=== PATIENT | female | born 1975 | race Caucasian/White ===

== ENCOUNTER 2021-08-19 09:44 | Emergency (ER) | payer OTHER, SELFPAY ==
[2021-08-19 10:12] VITALS: BP 116/64; PULSE 84; RESP 16; TEMP 36.6; O2SAT 99; BMI 28.3
--- NOTE | 2021-08-19 10:57 | ED.BACK ---
HPI - Back Pain/Injury General Chief Complaint: Back Pain/Injury Stated Complaint: lower back down to r side leg Time Seen by Provider: 08/19/21 10:53 Source: patient and family Mode of arrival: ambulatory Limitations: no limitations History of Present Illness MD elicited complaint: back pain Pertinent past history: prior back pain (She reports she goes to [facility] and gets injections every 6 months the left side of the back usually not to the right although feels similar) Onset (ago): day(s) (Past 2 days worse today) Timing: constant and progressively worsening Severity: severe Similar Symptoms Previously: Yes Quality: sharp, aching and spasming Location: lumbar spine Radiation: right upper leg (Above the knee) Exacerbating factors: movement, sitting upright, walking and lifting Relieving factors: none Context: unknown Associated symptoms: numbness (Numbness/tingling to the right lower extremity intermittent) Treatments prior to arrival: other (She has tried [id number] medication no symptomatic relief) Work related injury: No Related Data Previous Rx's Medication Instructions Recorded diazepam 10 mg tablet (Valium) 10 mg PO TID PRN #14 tab 08/19/21 ibuprofen 800 mg tablet 800 mg PO Q8H PRN #14 tab 08/19/21 oxycodone 5 mg tablet 5 mg PO Q6H PRN #14 tab 08/19/21 prednisone 20 mg tablet 40 mg PO DAILY 5 Days #10 tab 08/19/21 Allergies Allergy/AdvReac Type Severity Reaction Status Date / Time No Known Allergies Allergy Unverified 05/21/20 15:25 [No Known Allergies*] Review of Systems Review of Systems: Constitutional : No trauma, No Weight loss, No Fever, No Chills, ENT/Mouth : No Hearing loss, No Ear Pain, No Nasal Congestion, No Sinus Pain, No Hoarseness, No sore throat, No Rhinorrhea, No Swallowing Difficulty Cardiovascular : No Chest Pain, No SOB Respiratory : No Cough, No Dyspnea Gastrointestinal : No Nausea, No Vomiting, No Diarrhea, No abdominal Pain, No Hematochezia, No Melena Genitourinary : No Dysuria, No Urinary Frequency, No Hematuria, No Urinary or Bowel Incontinence/retention Musculoskeletal : + Back pain, No neck pain, No joint stiffness, No joint swelling Skin : No Skin Lesions, No rash or signs of infection Neuro : No Weakness, + radiation, + Numbness, No Paresthesias, No headache, no loss of bowel or bladder incontinence, no saddle anesthesia, Focal weakness, No radiation Denies history of IV drug usage. Yes all other systems are reviewed and are negative [facility] Past Medical History Attestation statement: The following information was validated with the patient. Medical History Depression Social History Social History Advance Directives: No Advance Directives Information Provided: No Patient : No Physical Exam Vital Signs: Vital Signs: Last Vital Signs Temp 97.8 F 08/19/21 10:12 Pulse 84 08/19/21 10:12 Resp 16 08/19/21 10:12 BP 116/64 08/19/21 10:12 Pulse Ox 99 08/19/21 10:12 BMI result Body Mass Index 28.3 vital signs have been reviewed as normal and appeared to be correct. Blood pressure normal. Heart rate normal. Respiration rate normal. Temperature normal. Oxygen saturation normal. Appearance: Alert. Oriented X3. No acute distress. Head: Normal external exam. Normocephalic. Atraumatic. No Avelar signs noted. No raccoon eyes noted Eyes: PERRLA. EOMI. Conjunctiva and sclera normal. Eyelids normal. ENT: EAC normal. TM's Normal. Pharynx normal. Uvula midline. Moist mucous membranes. No trismus noted. No drooling noted. No muffled voice noted. Neck: Normal inspection. Neck supple. FROM. No adenopathy. Thyroid Normal. No meningeal signs. No neck mass noted. CVS: Normal heart rate and rhythm. Heart sound normal. No murmurs noted. Pulses normal throughout. Respiratory: No respiratory distress. Painless inspiration. Breath sounds normal. No wheezes/rales/rhonchi noted. Chest nontender. No accessory muscle usage noted or decreased air movement noted. Abdomen: Soft and nontender. Bowel sounds normal in all 4 quadrants. No distention noted. No organomegaly noted. No visible injury noted. Back: No CVA tenderness. Full range of motion noted. No obvious deformities, or edema. Mild para-spinal muscular tenderness from lumbar region to coccyx. Full ROM in back and lower extremities. 5/5 strength hip extension/flexion, abduction, adduction. Mild Lumbar pain with hip flexion against resistance. Straight leg raise test negative on right; Straight leg raise test negative on left; Reflexes normal ankle and knee bilaterally; EHL motor strength normal bilaterally. No rashes/lesion/induration/fluctuance or signs infection noted. Skin: Skin warm and dry. Normal skin color. Normal skin turgor. No rashes/lesions/lacerations noted. Extremities: No lower extremity edema. Extremities exhibit normal range of motion. Extremities nontender. Neuro: Oriented X 3. No motor deficit. No sensory deficit. Reflexes normal. Patient has a normal steady gait. Course Course Course Narrative: Pt c likely muscular pain, but could be herniated disc. Neuro exam shows no deficits. Not c/w AAA/epidural abscess/dissection.No high risk Hx (Incont, fever, immunosupp, recent surgery/LP, coag, signif trauma, wt loss, puls mass, hx/o Ca, TB, or IVDU) to warrant MRI/CT today. Not c/w Pyelo/UTI/kidney stone/spinal fx. Not cauda equina syndrome. Imaging not currently indicated. DC c meds and f/u. Discharge Plan Discharge Clinical Impression: Lumbar radiculopathy Patient Disposition: Home, Self-Care Instructions: Lumbar Radiculopathy (ED), Lower Back Exercises (ED) Prescriptions: New ibuprofen 800 mg tablet 800 mg PO Q8H PRN (Reason: pain) Qty: 14 RF: 0 prednisone 20 mg tablet 40 mg PO DAILY 5 Days Qty: 10 RF: 0 diazepam [Valium] 10 mg tablet 10 mg PO TID PRN (Reason: muscle spasm) Qty: 14 RF: 0 oxycodone 5 mg tablet 5 mg PO Q6H PRN (Reason: pain) Qty: 14 RF: 0 Referrals: Physician,Unknown J [Primary Care Provider] - 2 days (your pcp) Stand Alone Forms: Work/School Release Print Language: Cymro
[2021-08-19] MEDS: diazePAM 5 MG TABLET PO (11:11)
[2021-08-19] MEDS: oxyCODONE HCl Immed Release 5 MG TABLET PO (11:12)
[2021-08-19] MEDS: Ibuprofen 800 MG TABLET PO (11:12)
== END 2021-08-19 11:18 | disposition home or self-care (01) ==
PROVIDERS: Emergency Provider Emergency Medicine
DX: M54.16 Radiculopathy, lumbar region (principal)
CPT/HCPCS: 99283; 99284

== ENCOUNTER 2021-09-22 11:00 | Emergency (ER) | payer OTHER, SELFPAY ==
--- NOTE | ~2021-09-22 | XR_ITS ---
EXAMINATION: XR CHEST CLINICAL INFORMATION: Chest wall pain after cough COMPARISON: None TECHNIQUE: 2 views of the chest were obtained. FINDINGS: No significant abnormality is noted involving the heart, lungs, mediastinum, bony thorax or soft tissues. XR/XR chest 2V IMPRESSION: Unremarkable chest examination.
[2021-09-22 12:37] VITALS: BP 148/93; PULSE 88; RESP 19; TEMP 35.5; O2SAT 99; BMI 29.2
[2021-09-22 13:12] LABS: COVID-19 Test Negative (Negative)
--- NOTE | 2021-09-22 13:52 | ED.GENADULT ---
HPI - General Adult General Chief complaint: General Medical Stated complaint: Chest pain when breathing Time Seen by Provider: 09/22/21 13:28 Source: patient Mode of arrival: ambulatory Limitations: no limitations History of Present Illness HPI narrative: This is a 46-year-old female that comes in today with multiple complaints, she reports cough, congestion, malaise and chest pain with deep inspiration x1 week. She also reports right anterior chest wall pain status post falling and hitting her chest on the floor while wrestling with her significant other X2 days. Patient tells me pain with inspiration is severe. And 10/10 sharp pain. She also reports slight shortness of breath on exertion. She denies chest pain, nausea, vomiting, fevers, chills, calf pain, weakness, headache, dizziness, vision changes. Not on blood thinners Onset (ago): week(s) (1) Location: chest Radiation: non-radiation Severity: severe Severity scale (1-10): 10 Quality: stabbing Pain Consistency: constant Relieving factors: none Exacerbating factors: other (deep breathing) Associated symptoms: cough, malaise and shortness of breath (on exertion) Treatments prior to arrival: NSAID Related Data Previous Rx's Medication Instructions Recorded diazepam 10 mg tablet (Valium) 10 mg PO TID PRN #14 tab 08/19/21 ibuprofen 800 mg tablet 800 mg PO Q8H PRN #14 tab 08/19/21 oxycodone 5 mg tablet 5 mg PO Q6H PRN #14 tab 08/19/21 prednisone 20 mg tablet 40 mg PO DAILY 5 Days #10 tab 08/19/21 cyclobenzaprine 10 mg tablet 10 mg PO BEDTIME PRN #7 tab 09/22/21 naproxen 500 mg tablet 500 mg PO BID PRN #14 tab 09/22/21 Allergies Allergy/AdvReac Type Severity Reaction Status Date / Time No Known Allergies Allergy Unverified 05/21/20 15:25 [No Known Allergies*] Review of Systems Review of Systems: Constitutional : No Weight loss, No Fever, No Chills, + Fatigue, No+ Malaise ENT/Mouth : No sore throat, + Rhinorrhea. +congestion Eyes: No Eye Pain, No Swelling, No Redness Cardiovascular : + Chest Pain, + SOB, + Dyspnea on Exertion, No Orthopnea, No Edema, No Palpitations, + anterior chest wall pain Respiratory : No Cough, No Sputum, No Wheezing Gastrointestinal : No Nausea, No Vomiting, No Diarrhea, No Constipation, No abdominal Pain, No Hematochezia, No Melena Genitourinary : No Dysuria, No Urinary Frequency, No Hematuria, Musculoskeletal : No joint pain, No Myalgias, No Joint Swelling Skin : No Skin Lesions, No rash Neuro : No Weakness, No Numbness, No Dizziness, No Headache All other systems reviewed and are negative Yes all other systems are reviewed and are negative [facility] Past Medical History Attestation statement: The following information was validated with the patient. Source: old records reviewed and nursing notes reviewed Medical History Depression Physical Exam Vital Signs: Vital Signs: Last Vital Signs Temp 96 F L 09/22/21 12:37 Pulse 88 09/22/21 12:37 Resp 19 09/22/21 12:37 BP 148/93 H 09/22/21 12:37 Pulse Ox 99 09/22/21 12:37 BMI result Body Mass Index 29.2 VSS Appearance: Alert.? Oriented X3.? No acute distress.? Head: Normocephalic, atraumatic, no step-offs or deformities Eyes: Pupils equal, round and reactive to light.? ENT: Pharynx normal.? Neck: Normal inspection.? Neck supple.? CVS: Normal heart rate and rhythm.? Pulses normal.?+pain with palpation to anterior chest wall on the right side. No overlying skin changes. Respiratory: No respiratory distress.? Breath sounds normal.? Abdomen: Soft and nontender.? Skin: Skin warm and dry.? Normal skin color.? Normal skin turgor.? Extremities: No lower extremity edema.? No calf ttp. 5/5 strength to bilateral upper and lower extremities Back: No midline tenderness, no C-spine tenderness, full range of motion, no CVA tenderness bilaterally Neuro: Oriented X 3.? No motor deficit.? No sensory deficit. Course Reevaluation(s) Reevaluation #1: Chest x-ray negative. COVID negative. On PE there is pain to palpation of right anterior chest wall. No overlying skin changes. I have ordered basic lab work an EKG, a troponin and a D-dimer. 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 She tells me that she does not have time for lab work, or other imaging. I explained to the patient that I am unable to rule out acute coronary syndrome and pulmonary embolism without lab work and imaging. Patient tells me that she does not care and she needs to leave to bring this client back home. I advised her that leaving is leaving against medical advice. I will send medication to her pharmacy to treat her anterior chest wall contusion however I am unable to rule out pulmonary embolism an ACS at this time. Patient understands the consequences of leaving such as , cardiac arrest, acute respiratory distress, I have educated patient on these risks and she agrees to take them. I do not feel comfortable with this patient leaving however, patient is leaving against medical advice. Time: 14:08 Reevaluation #2: I went to go speak to patient and hand her paperwork she left without paperwork. Everything I wrote on the paperwork I told her in person. Time: 14:31 Medical Decision Making MDM Narrative Medical decision making narrative: [id number] 46-year-old female presenting with upper respiratory symptoms times a week and pleuritic chest pain times 2 days. He does report a recent fall while she was wrestling her . She is not on blood thinners. Physical examination significant for pain with palpation of right anterior chest wall, no overlying skin changes. No calf tenderness to palpation, negative Shiloh sign. My plan is to obtain basic labs, D-dimer, troponin an EKG to rule out pulmonary embolism, ACS. I will also order COVID test. And chest x-ray to rule out rib fractures. Lab Data Labs: Lab Results 09/22/21 Range/Units 12:51 COVID-19 ([facility]ICIA) Negative (Negative) COVID-19 Clin Com See Note Imaging Data Chest x-ray: Attestation: I personally reviewed and interpreted this imaging study as follows: Radiologist's impression: FINDINGS: No significant abnormality is noted involving the heart, lungs, mediastinum, bony thorax or soft tissues. XR/XR chest 2V IMPRESSION: Unremarkable chest examination. Critical Care Time Critical Care Time Critical Care Time: No Discharge Plan Discharge Clinical Impression: Upper respiratory infection, Anterior chest wall pain, Chest pain, Shortness of breath, Left against medical advice Patient Disposition: Left Against Medical Advice Instructions: Chest Pain (ED), Viral Syndrome (ED), Against Medical Advice (ED), Chest Wall Pain (ED) Additional Instructions: Take your medications as prescribed. If you were prescribed antibiotics today, it is important that you take your medication to their entirety, do not skip any doses, do not finish them early. Follow-up with your primary care provider this week. Return to the emergency department with new or worsening symptoms. In case of emergency call 911 You decided to leave today against medical advice, I advised you to get laboratory studies, and imaging done to rule out things such as pulmonary embolism/ blood clot, acute coronary syndrome/ heart attacks or problems with your heart. 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 I have sent medication to your pharmacy for year right anterior chest wall pain secondary to her fall. I sent muscle relaxers, these can make you sleepy please do not take these while driving or operating any machinery. I have made you aware that leaving against medical advice and missing 1 of these diagnosis can potentially be life-threatening and can cause . You agreed to leave and not have these studies done. Feel free to return at any time with new or worsening symptoms. Prescriptions: New cyclobenzaprine 10 mg tablet 10 mg PO BEDTIME PRN (Reason: muscle spasm) Qty: 7 RF: 0 naproxen 500 mg tablet 500 mg PO BID PRN (Reason: pain) Qty: 14 RF: 0 No Action ibuprofen 800 mg tablet 800 mg PO Q8H PRN (Reason: pain) Qty: 14 RF: 0 prednisone 20 mg tablet 40 mg PO DAILY 5 Days Qty: 10 RF: 0 diazepam [Valium] 10 mg tablet 10 mg PO TID PRN (Reason: muscle spasm) Qty: 14 RF: 0 oxycodone 5 mg tablet 5 mg PO Q6H PRN (Reason: pain) Qty: 14 RF: 0 Referrals: Physician,Unknown J [Primary Care Provider] - 2 days Stand Alone Forms: Against Medical Advice Interventions: ED Discharge Assessment Last Done: 09/22/21 14:45 Discharge Date/Time: 09/22/21 14:46
== END 2021-09-22 14:46 | disposition left against medical advice (07) ==
PROVIDERS: Emergency Provider Emergency Medicine
DX: J06.9 Acute upper respiratory infection, unspecified (principal); R07.81 Pleurodynia; R05.9 Cough, unspecified; M79.10 Myalgia, unspecified site; R06.02 Shortness of breath; Z20.822 Contact with and (suspected) exposure to COVID-19; Z79.899 Other long term (current) drug therapy
CPT/HCPCS: 71046; 87635; 99283

== ENCOUNTER 2021-09-22 15:53 | Emergency (ER) | payer OTHER, SELFPAY | END 2021-09-22 18:59 | disposition left against medical advice (07) | PROVIDERS: Emergency Provider Emergency Medicine | DX: R07.89 Other chest pain (principal) ==

== ENCOUNTER 2021-12-09 11:37 | Outpatient (REF) | payer OTHER, SELFPAY ==
[2021-12-09 12:26] LABS: COVID-19 Test Negative (Negative)
== END 2021-12-09 11:38 | disposition home or self-care (01) ==
LOC: HO.LAB 11:37
PROVIDERS: Visit Provider Internal Medicine
DX: Z20.822 Contact with and (suspected) exposure to COVID-19 (principal)
CPT/HCPCS: 87635; C9803

== ENCOUNTER 2022-06-24 15:20 | Emergency (ER) | payer OTHER, SELFPAY ==
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
--- NOTE | 2022-06-24 15:52 | PC.NURSE ---
Called x 3 to triage. No answer.
[2022-06-24 16:04] VITALS: BP 136/85; PULSE 100; RESP 18; TEMP 37.2; O2SAT 100; BMI 26.1
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
[2022-06-24 21:53] LABS: MANUAL DIFF FLAG NO
[2022-06-24 21:56] LABS: Basophils Absolute Auto 0.1 X10*3/uL (0.0-0.2); Basophils Percent Auto 0.7 % (0-2); Eosinophils Absolute Auto 0.4 X10*3/uL (0.0-0.4); Eosinophils Percent Auto 3.4 % (0-4); Hematocrit 39.9 % (37.0-47.0); Hemoglobin 13.3 g/dl (12.0-16.0); Imm Gran Abs Auto 0.02 X10*3/uL (0.00-0.03); Imm Gran Pct Auto 0.2 % (0.0-0.4); Lymphocytes Absolute Auto 4.5 X10*3/uL (1.2-4.9); Lymphocytes Percent Auto 41.6 % (20-40); Mean Corpuscular HGB Conc 33.3 g/dl (31.0-35.0); Mean Corpuscular Hemoglobin 29.5 pg (27.0-33.0); Mean Corpuscular Volume 88.5 fL (80.0-98.0); Mean Platelet Volume 9.8 fL (9.4-12.3); Monocytes Absolute Auto 0.4 X10*3/uL (0.1-1.2); Monocytes Percent Auto 3.7 % (2-11); Neutrophils Absolute Auto 5.4 x10*3/uL (2.0-8.3); Neutrophils Percent Auto 50.4 % (45-73); Platelet Count 389 X10*3/uL (160-400); Red Blood Count 4.51 X10*6/uL (4.20-5.50); Red Cell Distribution Width 14.5 % (11.0-16.0); White Blood Count 10.8 X10*3/uL (4.8-10.8)
[2022-06-24 21:57] LABS: Appearance Urine Clear; Color Urine Yellow; Glucose Urine UA Negative (Negative); Leukocyte Esterase Urine Negative (Negative); Nitrite Urine Negative (Negative); PH 5.5 (5.0-9.0); Specific Gravity - Urine >= 1.030 (1.005-1.025); Urine Blood Negative (Negative); Urine Ketones Negative (Negative); Urine Protein Negative (Neg-Trace)
[2022-06-24 22:00] LABS: Urine Pregnancy NEGATIVE (NEGATIVE)
[2022-06-24 22:01] LABS: UPreg QC Valid YES
[2022-06-24] MEDS: Acetaminophen 325 MG TABLET 975 MG PO (22:23)
[2022-06-24] MEDS: Ketorolac Tromethamine 15 MG/ML VIAL IM (22:24)
[2022-06-24] MEDS: Lidocaine 4 % Patch ADH..PATCH 1 PATCH TRANSDERMA (22:25)
[2022-06-24 22:26] LABS: Alanine Aminotransferase 27 U/L (0-31); Albumin Level 4.4 g/dL (3.5-5.0); Alkaline Phosphatase 104 U/L (39-117); Anion Gap 17 (12-20); Aspartate Amino Transferase 21 U/L (5-31); Bilirubin Total 0.3 mg/dL (0.0-1.0); Blood Urea Nitrogen 19 mg/dL (9-16); Calcium 9.9 mg/dL (8.4-10.2); Carbon Dioxide 23 mmol/L (22-29); Chloride 104 mmol/L (96-108); Creatinine Clr Calc Pharmacy 87.2; Estimated Glomerular Filt Rate > 60; Glucose Random 165 mg/dL (60-115); Potassium 4.2 mmol/L (3.3-5.1); Sodium 140 mmol/L (135-145); Total Protein 7.3 g/dL (6.5-8.0)
[2022-06-24] MEDS: iohexoL 350 MG/ML 100 ML INFUS..BTL IV (22:39)
--- NOTE | 2022-06-25 00:47 | PC.NURSE ---
pt ambulatory with steady gait at time of discharge. no apparent distress
== END 2022-06-25 00:48 | disposition home or self-care (01) ==
PROVIDERS: Emergency Provider Student in an Organized Health Care Education/Training Program
DX: Z04.1 Encounter for examination and observation following transport accident (principal); M79.18 Myalgia, other site; M54.50 Low back pain, unspecified; M54.2 Cervicalgia
CPT/HCPCS: 36415; 70450; 71260; 72125; 73110; 74177; 80053; 81003; 81025; 85025; 96372; 99283; 99284; J1885; Q9967

== ENCOUNTER 2023-05-25 19:41 | Inpatient (IN) | payer OTHER, SELFPAY ==
--- NOTE | ~2023-05-25 | CT_ITS ---
EXAMINATION: CT ABDOMEN AND PELVIS WITH CONTRAST CLINICAL INFORMATION: Abdominal pain, nausea/vomiting, Crohn's COMPARISON: 06/24/2022 TECHNIQUE: Multidetector volumetric images were obtained from the superior aspect of the liver through the pubic symphysis following administration 85 mL of Omnipaque 350 intravenous contrast. Sagittal and coronal reformatted images were obtained on the technologist's workstation. Oral contrast: No This CT examination was performed using dose optimization techniques as appropriate, variously including the following: *Automated exposure control *Adjustment of mA and/or kV according to patient size (this includes techniques or standardized protocols for targeted exams where dose is matched to indication/reason for exam; i.e. extremities or head) *Use of iterative reconstruction technique DLP: 523 mGy-cm FINDINGS: LUNG BASES: Minimal subsegmental atelectasis. LIVER, GALLBLADDER, AND BILIARY TREE: The liver is normal in size, shape, and attenuation. No focal hepatic lesion or biliary ductal dilatation is present. Cholelithiasis is noted. PANCREAS: Unremarkable. SPLEEN: Unremarkable. ADRENAL GLANDS: Unremarkable. KIDNEYS AND URETERS: Bilateral nephrograms are symmetric. No hydronephrosis or obstructing calculus identified. BLADDER: Nearly empty and not adequately evaluated. GASTROINTESTINAL TRACT: There is a thick-walled, inflamed appearance of the collapsed distal small bowel/terminal ileum, estimated to be approximately 18 cm in length, in keeping with the history of Crohn's disease. There is significant fluid dilation of the majority of small bowel leading to this site, in keeping with associated small bowel obstruction. Small amount of free fluid is present throughout the abdomen. The colon is relatively collapsed. Appendix is collapsed. No free air is seen. ABDOMINAL WALL: No significant hernia is appreciated. LYMPH NODES: There are several prominent lymph nodes in the central abdominal mesentery measuring up to 1.3 cm, favored to be reactive. VASCULAR: Unremarkable. PELVIC VISCERA: Unremarkable. OSSEOUS STRUCTURES: Degenerative change in the spine at L5-S1. CT/CT abdomen pelvis w IV con IMPRESSION: 1. Thick-walled, inflamed appearance of the distal small bowel/terminal ileum, in keeping with the history of Crohn's disease. Associated small bowel obstruction, likely secondary to stricturing, with dilated fluid-filled small bowel loops throughout the abdomen. 2. Small amount of free fluid. 3. Prominent mesenteric lymph nodes, favored to be reactive. 4. Cholelithiasis.
[2023-05-25 20:03] VITALS: BP 101/56; BP 110/70; PULSE 100; PULSE 93; RESP 18; TEMP 36.9; O2SAT 98; O2SAT 99; BMI 26.9
--- NOTE | 2023-05-25 20:32 | ED_ITS ---
HPI - Abdominal Pain General Chief Complaint: Abdominal Pain Stated Complaint: abd pain, vomiting Time Seen by Provider: 05/25/23 20:02 Source: patient Mode of arrival: EMS Limitations: no limitations History of Present Illness HPI narrative: patient is a 48-year-old female who presents emergency department for evaluation of severe diffuse abdominal pain with nausea and vomiting with onset at 15:30 today that reportedly feels consistent with her prior episodes of Crohn's flare. endorses recent hematochezia 3 days ago With abdominal pain..She takes Lialda. She denies fevers, chills, recent known sick contacts, melena, bloody or coffee-ground emesis, chest pain, shortness of breath, dysuria, urinary frequency/ urgency / hesitancy, hematuria, weakness. Related Data Previous Rx's Medication Instructions Recorded diazepam 10 mg tablet (Valium) 10 mg PO TID PRN muscle spasm #14 08/19/21 tabs ibuprofen 800 mg tablet 800 mg PO Q8H PRN pain #14 tabs 08/19/21 oxycodone 5 mg tablet 5 mg PO Q6H PRN pain #14 tabs 08/19/21 prednisone 20 mg tablet 40 mg (2 x 20 mg) PO DAILY rash 5 08/19/21 days #10 tabs cyclobenzaprine 10 mg tablet 10 mg PO BEDTIME PRN muscle spasm 09/22/21 #7 tabs naproxen 500 mg tablet 500 mg PO BID PRN pain #14 tabs 09/22/21 cyclobenzaprine 5 mg tablet 5 mg PO BEDTIME PRN muscle spasm 06/24/22 #3 tabs Allergies Allergy/AdvReac Type Severity Reaction Status Date / Time No Known Allergies Allergy Verified 05/25/23 21:39 [No Known Allergies*] Review of Systems Review of Systems Constitutional : No Weight loss, No Fever, No Chills ENT/Mouth :? No sore throat, No Rhinorrhea Eyes: No Swelling, No Redness Cardiovascular : No Chest Pain, No SOB, No Edema Respiratory : No Cough, No Sputum, No Wheezing Gastrointestinal : Positive Nausea, Positive Vomiting, no Diarrhea, positive abdominal pain, PositiveHematochezia, No Melena Genitourinary : No Dysuria, No Urinary Frequency, No Hematuria, No Urgency? Musculoskeletal : No joint pain, No Myalgias, No Joint Swelling Skin : No Skin Lesions, No rash Neuro : No Weakness, No Numbness, No Dizziness, No Headache Psych : No Anxiety/Panic, No Depression Heme/Lymph: No Bruising, No Lymphadenopathy Endocrine : No Polyuria, No Polydipsia Yes all other systems are reviewed and are negative [facility] Past Medical History Attestation statement: The following information was validated with the patient. Source: old records reviewed Medical History Crohn's disease Depression Social History Social History Advance Directives: No Advance Directives Information Provided: No Physical Exam ED Vital Signs: Vital Signs - 24 hr 05/25/23 20:03 05/26/23 00:00 Temperature 98.5 F 98.4 F Pulse Rate 93 84 Respiratory Rate 18 14 Blood Pressure 101/56 L 96/54 L Pulse Oximetry 99 99 Oxygen Delivery Method Room Air Room Air BMI result Body Mass Index 26.9 Appearance: Alert.?Oriented to person, place and time. No acute distress.?Normal affect. Eyes: Pupils equal, round and reactive to light.? ENT: Pharynx normal.?? Neck: Normal inspection.? Neck supple.?? CVS: Heart sounds normal. Normal heart rate and rhythm.? Pulses normal.?? Respiratory: No respiratory distress.? Lung sounds clear to auscultation bilaterally?? Abdomen: Soft with Periumbilical tenderness upon palpation. no rebound tenderness. No CVA tenderness. Normoactive bowel sounds. No pulsatile mass.?? Skin: Skin warm and dry.? Normal skin color.? Extremities: No lower extremity edema.? Neuro: Moves all extremities spontaneously. Sensation intact bilaterally. No focal neuro deficits. Ambulates with normal steady gait. Course Reevaluation(s) Reevaluation #1: CBC reveals leukocytosis of 18.2 with left shift Thrombocytosis. Normal ESR with elevated CRP of 5.08. CMP overall unremarkable. Lipase within normal limits. No lactic acidosis. COVID- 19 and influenza testing are negative. CT of the abdomen and pelvis revealing inflamed distal small-bowel/terminal ileum consistent with Crohn's disease in associated small-bowel obstruction likely secondary to stricturing. I have consulted with General surgery on-call; Dr. Walters who does not feel any surgical intervention is warranted at this time but they will continue to follow patient, She has not had any further episodes of vomiting, he also advised to defer NG tube at this time. I will speak with hospitalist regarding admission to medicine service for management of Crohn's flare. Ordered Solu-Medrol 60 mg IV at this time. Time: 00:11 Reevaluation #2: Medical Decision Making Medical Decision Making MDM Narrative: Patient is a 48-year-old female who presents emergency department for evaluation of abdominal pain with nausea/ vomiting of sudden severe onset this afternoon. At the time my examination she appears significantly uncomfortable. Having difficulty sitting still. No active vomiting at this time. Abdominal tenderness upon palpation. Will obtain CBC to evaluate for leukocytosis/ anemia, CMP and lipase to evaluate for abnormal electrolytes /abnormal renal function/ abnormal hepatic/biliary function, CT of the abdomen and pelvis and Urinalysis. patient to receive 1 L normal saline IV fluid, Zofran IV, morphine IV Differential Diagnosis Differential Diagnoses: The differential diagnosis associated with the presentation includes ( diverticulitis, appendicitis, bowel obstruction, colitis, Crohn's flare, gastroenteritis) Admission/Observation Consideration of admission/observation: Escalation of care including admission/observation considered ( I considered admission for abdominal pain, see course narrative for further detail) Consult Healthcare Provider Management of the patient was discussed with: Hospitalist and Dobby Looms Pegger Lab Data [facility] Lab Attestation statement: I reviewed the patient's lab results. 05/25/23 21:25 05/25/23 21:25 Labs: Lab Results 05/25/23 Range/Units 21:25 WBC 18.2 H (4.8-10.8) X10*3/uL RBC 4.72 (4.20-5.50) X10*6/uL Hgb 13.1 (12.0-16.0) g/dl Hct 39.1 (37.0-47.0) % MCV 82.8 (80.0-98.0) fL MCH 27.8 (27.0-33.0) pg MCHC 33.5 (31.0-35.0) g/dl RDW 14.4 (11.0-16.0) % Plt Count 490 H D (160-400) X10*3/uL MPV 8.7 L (9.4-12.3) fL Immature Gran % (Auto) 0.3 (0.0-0.4) % Neut % (Auto) 76.1 H (45-73) % Lymph % (Auto) 18.5 L (20-40) % [place] % (Auto) 2.4 (2-11) % Eos % (Auto) 2.2 (0-4) % Baso % (Auto) 0.5 (0-2) % Lymph # (Auto) 3.4 (1.2-4.9) X10*3/uL [place] # (Auto) 0.4 (0.1-1.2) X10*3/uL Eos # (Auto) 0.4 (0.0-0.4) X10*3/uL Baso # (Auto) 0.1 (0.0-0.2) X10*3/uL Abs Immat Gran (auto) 0.06 H (0.00-0.03) X10*3/uL Absolute Neuts (auto) 13.9 H (2.0-8.3) x10*3/uL Absolute Nucleated RBC 0.000 (0.0-0.012) X10*3/uL Nucleated RBC % (auto) 0.0 (0.0-0.2) /100WBC ESR 17 (0-20) MM/HR Sodium 139 (135-145) mmol/L Potassium 3.6 (3.3-5.1) mmol/L Chloride 104 (96-108) mmol/L Carbon Dioxide 24 (22-29) mmol/L Anion Gap 15 (12-20) BUN 13 (9-16) mg/dL Creatinine 0.71 (0.5-1.4) mg/dL Estim Creat Clear Calc 93.7 Estimated GFR > 60 Random Glucose 136 H (60-115) mg/dL Lactic Acid 0.8 (0.5-2.0) mmol/L Calcium 9.8 (8.4-10.2) mg/dL Magnesium 1.7 (1.6-2.6) mg/dL Total Bilirubin 0.3 (0.0-1.0) mg/dL AST 16 (5-31) U/L ALT 11 (0-31) U/L Alkaline Phosphatase 87 (39-117) U/L C-Reactive Protein 5.08 H (< or = 0.50) mg/dL Total Protein 7.2 (6.5-8.0) g/dL Albumin 3.7 (3.5-5.0) g/dL Lipase 13 (8-78) U/L COVID-19 (ALICIA) Negative (Negative) COVID-19 Clin Com See Note Influenza Type A (RICHARD) Negative (Negative) Influenza Type B (RICHARD) Negative (Negative) Influenza A & B Note See Note Radiology Impression Discussion of test interpretation with radiology: I have reviewed the radiologist's reading. Radiologist Impression: CT/CT abdomen pelvis w IV con IMPRESSION: 1. Thick-walled, inflamed appearance of the distal small bowel/terminal ileum, in keeping with the history of Crohn's disease. Associated small bowel obstruction, likely secondary to stricturing, with dilated fluid-filled small bowel loops throughout the abdomen. 2. Small amount of free fluid. 3. Prominent mesenteric lymph nodes, favored to be reactive. 4. Cholelithiasis. Medications Administered Generic Name Dose Route Start Last Admin Trade Name Freq PRN Reason Stop Dose Admin Sodium Chloride 1,000 mls @ 999 mls/hr 05/26/23 01:00 05/26/23 01:10 Ns IV 05/26/23 02:00 999 mls/hr .Q1H1M ALONDRA Administration Discontinued Medications Generic Name Dose Route Start Last Admin Trade Name Freq PRN Reason Stop Dose Admin Sodium Chloride 1,000 mls @ 999 mls/hr 05/25/23 20:45 05/25/23 22:55 Ns IV 05/25/23 21:45 Infused .Q1H1M ALONDRA Infusion Iohexol 100 ml 05/25/23 22:15 05/25/23 22:16 Iohexol 350 Mg/Ml 100 Ml Infus..Btl IV 05/25/23 22:16 85 ml ONCE ONE Administration Methylprednisolone Sodium Succinate 60 mg 05/26/23 00:16 05/26/23 01:07 Methylprednisolone Sod Succ 125 Mg/2 Ml Vial IVPUSH 05/26/23 00:17 60 mg ONCE ONE Administration Morphine Sulfate 4 mg 05/25/23 20:32 05/25/23 21:39 Morphine Sulfate 4 Mg/Ml Cartridge IVPUSH 05/25/23 20:33 4 mg ONCE ONE Administration Protocol Ondansetron HCl 4 mg 05/25/23 20:32 05/25/23 21:39 Ondansetron Hcl 4 Mg/2 Ml Vial IVPUSH 05/25/23 20:33 4 mg ONCE ONE Administration Discharge Plan Discharge Clinical Impression: Crohn's disease, Small bowel obstruction Patient Disposition: Admitted As Inpatient
[2023-05-25 21:30] LABS: MANUAL DIFF FLAG NO
[2023-05-25 21:32] LABS: Basophils Absolute Auto 0.1 X10*3/uL (0.0-0.2); Basophils Percent Auto 0.5 % (0-2); Eosinophils Absolute Auto 0.4 X10*3/uL (0.0-0.4); Eosinophils Percent Auto 2.2 % (0-4); Hematocrit 39.1 % (37.0-47.0); Hemoglobin 13.1 g/dl (12.0-16.0); Imm Gran Abs Auto 0.06 X10*3/uL (0.00-0.03); Imm Gran Pct Auto 0.3 % (0.0-0.4); Lymphocytes Absolute Auto 3.4 X10*3/uL (1.2-4.9); Lymphocytes Percent Auto 18.5 % (20-40); Mean Corpuscular HGB Conc 33.5 g/dl (31.0-35.0); Mean Corpuscular Hemoglobin 27.8 pg (27.0-33.0); Mean Corpuscular Volume 82.8 fL (80.0-98.0); Mean Platelet Volume 8.7 fL (9.4-12.3); Monocytes Absolute Auto 0.4 X10*3/uL (0.1-1.2); Monocytes Percent Auto 2.4 % (2-11); Neutrophils Absolute Auto 13.9 x10*3/uL (2.0-8.3); Neutrophils Percent Auto 76.1 % (45-73); Platelet Count 490 X10*3/uL (160-400); Red Blood Count 4.72 X10*6/uL (4.20-5.50); Red Cell Distribution Width 14.4 % (11.0-16.0); White Blood Count 18.2 X10*3/uL (4.8-10.8)
[2023-05-25] MEDS: Morphine Sulfate 4 MG/ML CARTRIDGE IVPUSH (21:39)
[2023-05-25] MEDS: ondansetron HCL 4 MG/2 ML VIAL IVPUSH (21:39)
[2023-05-25 21:41] LABS: Lactic Acid 0.8 mmol/L (0.5-2.0)
[2023-05-25] MEDS: 0.9 % Sodium Chloride 1,000 ML 999 ML IV (21:42)
[2023-05-25 21:46] LABS: Alanine Aminotransferase 11 U/L (0-31); Albumin Level 3.7 g/dL (3.5-5.0); Alkaline Phosphatase 87 U/L (39-117); Anion Gap 15 (12-20); Aspartate Amino Transferase 16 U/L (5-31); Bilirubin Total 0.3 mg/dL (0.0-1.0); Blood Urea Nitrogen 13 mg/dL (9-16); C Reactive Protein 5.08 mg/dL (< or = 0.50); Calcium 9.8 mg/dL (8.4-10.2); Carbon Dioxide 24 mmol/L (22-29); Chloride 104 mmol/L (96-108); Creatinine Clr Calc Pharmacy 93.7; Estimated Glomerular Filt Rate > 60; Glucose Random 136 mg/dL (60-115); Lipase 13 U/L (8-78); Magnesium 1.7 mg/dL (1.6-2.6); Potassium 3.6 mmol/L (3.3-5.1); Sodium 139 mmol/L (135-145); Total Protein 7.2 g/dL (6.5-8.0)
[2023-05-25 21:49] LABS: COVID-19 Test Negative (Negative); IDNOW Serial# 08D9AD1C; IDNOW Serial# BCCEAD1C; Influenza A Negative (Negative); Influenza B2 Negative (Negative)
[2023-05-25 22:08] LABS: Erythrocyte Sedimentation Rate 17 MM/HR (0-20)
[2023-05-25] MEDS: iohexoL 350 MG/ML 100 ML INFUS..BTL IV (22:16)
[2023-05-26] VITALS: BP 96/54; PULSE 84; RESP 14; TEMP 36.9; O2SAT 99
--- NOTE | 2023-05-26 00:23 | P.HPHOSP_ITS ---
History of Present Illness Date of Service: 05/26/23 Chief Complaint: Abdominal Pain This is a 48-year-old female with pertinent history of Crohn's disease, mood disorder who presents to the emergency department for evaluation of abdominal pain and vomiting. Patient states that about 4 days prior to presentation she had an episode of abdominal pain and bright red blood in stool. Subsequently over the next 4 days, her abdominal pain was progressive, generalized, nonradiating and without any relieving factors. Her last bowel movement was 3 days prior to presentation. Patient with multiple episodes of vomiting on the day of presentation. Unable to keep anything down. Reduced p.o. intake. Also has associated chills. No fever, chest discomfort, palpitations, shortness of breath, hematemesis, changes in urinary habits. In the emergency department, imaging with small-bowel obstruction Review of Systems 2 Constitutional: Constitutional: Reports fatigue, Reports lethargy, Reports malaise and Reports weakness Cardiovascular: Cardiovascular: Reports no additional cardiovascular complaints Respiratory: Respiratory: Reports no additional respiratory complaints Gastrointestinal: Gastrointestinal: Reports abdominal pain, Reports constipation, Reports nausea and Reports vomiting Genitourinary: Genitourinary: Reports no additional female genitourinary complaints Neurologic: Reports weakness Endocrine: Endocrine: Reports fatigue [facility] Medical History Crohn's disease Depression Pertinent family history: No family history of early CAD Social History Advance Directives: No Advance Directives Information Provided: No Meds Allergies Allergy/AdvReac Type Severity Reaction Status Date / Time No Known Allergies Allergy Verified 05/25/23 21:39 [No Known Allergies*] Physical Exam 2 Vital Signs and Narrative: Vital Signs: Last Vital Signs Temp 98.4 F 05/26/23 00:00 Pulse 84 05/26/23 00:00 Resp 14 05/26/23 00:00 BP 96/54 L 05/26/23 00:00 Pulse Ox 99 05/26/23 00:00 O2 Del Method Room Air 05/26/23 00:00 BMI result Body Mass Index 26.9 Middle-aged female lying in bed in mild distress Neck supple, no JVD Regular rate and rhythm, S1-S2 heard Regular breath sounds bilaterally, no wheezing or crackles appreciated Abdomen with generalized tenderness and mild guarding, no rigidity, no rebound tenderness Patient is awake, alert and oriented to self, place, time and person ; no focal motor deficit Psych: Normal mood No pedal edema Results Labs 05/25/23 21:25 05/25/23 21:25 Labs: Laboratory Results - last 24 hr 05/25/23 21:25 MCV 82.8 MCH 27.8 MCHC 33.5 RDW 14.4 Plt Count 490 H D MPV 8.7 L Immature Gran % (Auto) 0.3 Neut % (Auto) 76.1 H Lymph % (Auto) 18.5 L [place] % (Auto) 2.4 Eos % (Auto) 2.2 Baso % (Auto) 0.5 Lymph # (Auto) 3.4 [place] # (Auto) 0.4 Eos # (Auto) 0.4 Baso # (Auto) 0.1 Abs Immat Gran (auto) 0.06 H Absolute Neuts (auto) 13.9 H Absolute Nucleated RBC 0.000 Nucleated RBC % (auto) 0.0 ESR 17 Anion Gap 15 Estim Creat Clear Calc 93.7 Estimated GFR > 60 Random Glucose 136 H Lactic Acid 0.8 Calcium 9.8 Magnesium 1.7 Total Bilirubin 0.3 AST 16 ALT 11 Alkaline Phosphatase 87 C-Reactive Protein 5.08 H Total Protein 7.2 Albumin 3.7 Lipase 13 COVID-19 (ALICIA) Negative COVID-19 Clin Com See Note Influenza Type A (RICHARD) Negative Influenza Type B (RICHARD) Negative Influenza A & B Note See Note Imaging Radiologist's Impressions: Impressions Abdomen/Pelvis CT 05/25/23 22:22 IMPRESSION: 1. Thick-walled, inflamed appearance of the distal small bowel/terminal ileum, in keeping with the history of Crohn's disease. Associated small bowel obstruction, likely secondary to stricturing, with dilated fluid-filled small bowel loops throughout the abdomen. 2. Small amount of free fluid. 3. Prominent mesenteric lymph nodes, favored to be reactive. 4. Cholelithiasis. Assessment and Plan (1) Small bowel obstruction: Status: Acute (2) Crohn's disease: Status: Acute Plan This is a 48-year-old female with pertinent history of Crohn's disease, mood disorder who presents to the emergency department for evaluation of abdominal pain and vomiting. #. Small-bowel obstruction likely secondary to stricturing in the setting of Crohn's flare. General surgery was consulted from the ER, appreciate assistance. Will keep patient NPO for bowel rest. NG tube deferred as patient not actively vomiting. Given IV steroids in the ER. Will consult GI, appreciate assistance #. Mood disorder. Resume home mood stabilizers once no longer NPO #. Reactive leukocytosis Med rec pending DVT prophylaxis: Mechanical Admit as inpatient and will require two night minimum hospital stay for close monitoring of bowel function. Specialist consult pending Time Spent With Patient Time: Total time managing care of this patient today ____ minutes. Quality Stroke Does the patient have a stroke diagnosis?: No VTE Prior VTE?: No VTE Risk Level:: Medical - moderate - high VTE Device Contraindication: N/A - Device Ordered VTE Drug Contraindication: Treatment Not Indicated
[2023-05-26 01:02] LABS: Appearance Urine Clear; Color Urine Yellow; Glucose Urine UA Negative (Negative); Leukocyte Esterase Urine Negative (Negative); Nitrite Urine Negative (Negative); Specific Gravity - Urine >= 1.030 (1.005-1.025); Urine Blood Negative (Negative); Urine Ketones 15 mg/dL (Negative); Urine Protein Trace mg/dL (Neg-Trace)
[2023-05-26] MEDS: methylPREDNISolone Sod Succ 125 MG/2 ML VIAL 60 MG IVPUSH (01:07)
[2023-05-26] MEDS: 0.9 % Sodium Chloride 1,000 ML 999 ML IV (01:10)
--- NOTE | 2023-05-26 01:15 | PC.NURSE ---
Pt AOx4, speaking in full sentences, pain only on palpation of abdomen, otherwise pt denies pain due to positive effect of pain meds. Hypoactive bowel sounds heard in all 4 quadrants. Pt ambulated to bathroom with a steady gait, Pt resting quietly with no apparent distress. Meds given per NOV. Pt updated on plan of care.
[2023-05-26 01:49] VITALS: BMI 28.4
[2023-05-26 01:51] VITALS: BP 93/49; PULSE 75; RESP 16; TEMP 36.8; O2SAT 99
[2023-05-26] MEDS: Acetaminophen 325 MG TABLET 650 MG PO ×2 (02:03→18:28)
[2023-05-26] MEDS: Morphine Sulfate 4 MG/ML CARTRIDGE IVPUSH ×2 (02:03→12:24)
[2023-05-26 05:50] LABS: Alanine Aminotransferase 10 U/L (0-31); Albumin Level 3.1 g/dL (3.5-5.0); Alkaline Phosphatase 72 U/L (39-117); Anion Gap 10 (12-20); Aspartate Amino Transferase 11 U/L (5-31); Bilirubin Total 0.2 mg/dL (0.0-1.0); Blood Urea Nitrogen 10 mg/dL (9-16); Calcium 8.1 mg/dL (8.4-10.2); Carbon Dioxide 22 mmol/L (22-29); Chloride 111 mmol/L (96-108); Creatinine Clr Calc Pharmacy 106.7; Estimated Glomerular Filt Rate > 60; Glucose Random 134 mg/dL (60-115); Potassium 4.1 mmol/L (3.3-5.1); Sodium 139 mmol/L (135-145); Total Protein 5.7 g/dL (6.5-8.0)
--- NOTE | 2023-05-26 06:28 | P.CNGI_ITS ---
History of Present Illness Data of Consult Service Date: 05/26/23 Requesting physician: Suzie Lowery Primary Care Provider: Unknown Physician HPI Reason for consult: crohns, sbo 48-year-old female with history of Crohn's disease, mood disorder who I am seeing for assessment for crohns She initially presents to the emergency department for evaluation of abdominal pain and vomiting. 4 d ago she noted sudden onset upper abdominal pain, cramping in nature worse with food and associated with diarrhea, blood stools, and nausea, vomiting. Noramlly she would take tylenol and bentyl for pain but this time these did not help. There was no relieving factors. She does have [facility], which was diagnosed 1 yr ago. Only on lialda, but apparently mention has been made of shots . She is smoker, not using nsaids She has lost about 30# in weight over last 1 year No fever, chest discomfort, palpitations, shortness of breath, hematemesis, changes in urinary habits. Labs: Raised CRP, WCC, HGB 13 g/dl Imaging: SBO with thickened distal small bowel, fluid in pelvis, cholelithiasis Review of Systems 2 Review of Systems: Constitutional : No Weight loss, No Fever, + Chills ENT/Mouth : No sore throat, No Rhinorrhea Eyes: No Swelling, No Redness Cardiovascular : No Chest Pain, No SOB, No Edema Respiratory : No Cough, No Sputum, No Wheezing Gastrointestinal : see HPI Genitourinary : NO Dysuria, No Urinary Frequency, No Hematuria, No Urgency Musculoskeletal : No joint pain, No Myalgias, No Joint Swelling Skin : No Skin Lesions, No rash Neuro : No Weakness, No Numbness, No Dizziness, No Headache Psych : No Anxiety/Panic, No Depression Heme/Lymph: No Bruising, No Lymphadenopathy Endocrine : No Polyuria, No Polydipsia All other systems reviewed and are negative. [facility] Past Medical History Medical History Crohn's disease Depression Family History Pertinent family history: No FH of IBD Social History Social History Household Members: Family Housing: House Do you presently have visiting nurse or other home services: No Alcohol intake: current Alcohol intake frequency: holidays/special occasions only Patient Tobacco Use Status: Current everyday Tobacco user Tobacco use type: Cigarette Cigarettes Per Day: 8 Second Hand Smoke Exposure: Yes Meds Allergies Allergy/AdvReac Type Severity Reaction Status Date / Time No Known Allergies Allergy Verified 05/25/23 21:39 [No Known Allergies*] Active Medications: Current Medications Acetaminophen (Acetaminophen 325 Mg Tablet) 650 mg PO Q6H PRN PRN Reason: Pain, Mild (Pain Scale 1-3) Last Admin: 05/26/23 02:03 Dose: 650 mg Melatonin (Melatonin 3 Mg Tablet) 6 mg PO BEDTIME PRN PRN Reason: Insomnia Morphine Sulfate (Morphine Sulfate 4 Mg/Ml Cartridge) 4 mg IVPUSH Q4H PRN; Protocol PRN Reason: Pain, Severe (Pain Scale 7-10) Last Admin: 05/26/23 02:03 Dose: 4 mg Ondansetron HCl (Ondansetron Hcl 4 Mg/2 Ml Vial) 4 mg IVPUSH Q8H PRN PRN Reason: Nausea and Vomiting Sodium Chloride (0.9 % Sodium Chloride Flush 3 Ml Syringe) 3 ml IVFLUSH [facility] Medications Medication Instructions Recorded Confirmed Last Taken Type acetaminophen 500 mg tablet 500 mg PO Q6H PRN Pain 05/26/23 05/26/23 05/25/23 History cetirizine 10 mg tablet 10 mg PO DAILY 05/26/23 05/26/23 05/25/23 History dicyclomine 10 mg capsule 10 mg PO QID 05/26/23 05/26/23 05/25/23 History mesalamine 1.2 gram tablet,delayed 1.2 g PO QAM 05/26/23 05/26/23 05/25/23 History release (Lialda) multivitamin with minerals-folic 2 tab PO DAILY 05/26/23 05/26/23 05/25/23 History acid 200 mcg chewable tablet (Multivitamin Gummies) Physical Exam 2 Vital Signs: Vital Signs: Last Vital Signs Temp 98.2 F 05/26/23 01:51 Pulse 75 05/26/23 01:51 Resp 16 05/26/23 01:51 BP 93/49 L 05/26/23 01:51 Pulse Ox 99 05/26/23 01:51 O2 Del Method Room Air 05/26/23 01:51 BMI result Body Mass Index 28.4 EXAM: GENERAL: The patient is well developed and nontoxic. VITAL SIGNS:see workflow HEENT: Nonicteric sclerae, PERRLA, EOMI. Oropharynx clear. Moist mucous membranes. Conjunctivae appear well perfused. No thyroid mass. CHEST: Chest wall is nontender. HEART: Regular rate and rhythm without murmurs. LUNGS: Clear to auscultation bilaterally. ABDOMEN: Soft, positive bowel sounds, nontender, no organomegaly.no flank tenderness SKIN: No rash, no excessive bruising, petechiae, or purpura. NEUROLOGIC: Cranial nerves II-XII intact without motor/sensory deficit. Results Labs 05/25/23 21:25 05/26/23 05:11 Labs: Short CBC 05/25/23 Range/Units 21:25 WBC 18.2 H (4.8-10.8) X10*3/uL Hgb 13.1 (12.0-16.0) g/dl Hct 39.1 (37.0-47.0) % Plt Count 490 H D (160-400) X10*3/uL BMP 05/25/23 05/26/23 21:25 05:11 Sodium 139 139 Potassium 3.6 4.1 Chloride 104 111 H Carbon Dioxide 24 22 BUN 13 10 Creatinine 0.71 0.64 Calcium 9.8 8.1 L D Liver Function 05/25/23 05/26/23 Range/Units 21:25 05:11 Total Bilirubin 0.3 0.2 (0.0-1.0) mg/dL AST 16 11 (5-31) U/L ALT 11 10 (0-31) U/L Alkaline Phosphatase 87 72 (39-117) U/L Albumin 3.7 3.1 L (3.5-5.0) g/dL Urine 05/26/23 Range/Units 00:54 Urine Color Yellow Urine Appearance Clear Urine pH 6.0 (5.0-9.0) Ur Specific [place] >= 1.030 H (1.005-1.025) Urine Protein Trace (Neg-Trace) mg/dL Urine Glucose (UA) Negative (Negative) mg/dL Imaging CT scan - abdomen: Attestation: I personally reviewed and interpreted this imaging study as follows: (dilated small bowel loops, thickened distal small bowel, free fluid pelvis, cholelithiasis, mesenteric lymph nodes) Assessment and Plan (1) Crohn's disease: Qualifiers: Gastrointestinal tract location: small intestine Digestive disease complication type: with intestinal obstruction Qualified Code(s): K50.012 - Crohn's disease of small intestine with intestinal obstruction Status: Acute (2) Small bowel obstruction: Status: Acute Plan 1/ Crohns flare with SBO, active inflammation, RF: smoking 2/ Anemia related to anemia of chrnic disease, possible malabsorption, possible proctitis or hemorrhoidal bleeding,enteritis PLAN: 1/ commence solumedrl 20 mg q8h for 48 hr then transition to PO pred 40 mg with slow taper 2/ can commence cipro, flagyl 3/ check for c diff 4/ once stabilizes advised to f/u with her GI for biologics 5/ surgical consult if no improvement within next 48 hrs 6/ clears as tolerated, if not tolerated then NPO, and maybe NGT and suction 7/ advised on smoking cessation and association with worsening, complicated crohn disease 8/ if ongoing bleeding then colonoscopy, EGD 9/ check b12, folate, ferritin and replace if low Time Spent With Patient Time: Total time managing care of this patient today ____ minutes. Procedures Date of Service Date of Service: 05/26/23
[2023-05-26 08:00] VITALS: BP 98/53; PULSE 77; RESP 16; TEMP 36.4; O2SAT 94
[2023-05-26] MEDS: 0.9 % Sodium Chloride Flush 3 ML SYRINGE IVFLUSH ×3 (08:41→19:31)
--- NOTE | 2023-05-26 08:49 | PHA.MEDREC ---
Pharmacy Consult ? Medication Reconciliation Pharmacy has completed the medication reconciliation.Spoke to patient and verified medication list.
--- NOTE | 2023-05-26 09:00 | P.CONGS_ITS ---
History of Present Illness Consult details Consult date: 05/26/23 Reason for consult: other (SBO) Requesting physician: Suzie Lowery Narrative: This is a 48-year-old female with PMH of Crohns disease on lialda who presented to the ED for evaluation of abdominal pain, nausea and vomiting. Patient states that she developed upper abdominal pain on Monday. She then developed diarrhea and noticed a small amount of bright red blood. Subsequently over the next few days, her abdominal pain progressively worsened and became severe and associated with nausea, vomiting and abdominal bloating. She took tylenol with no improvement. Due to the severity of pain, she presented to the ED for evaluation. Work up included CBC, BMP and LFTs which were significant for a leukocytosis of 18.2. CT scan abd/pelvis showed thickened collapsed distal small bowel/terminal ileum with fluid dilation of the proximal small bowel. No free air. This morning she feels improved. She was diagnosed 1 year prior and has never had any flares before. She denies any abdominal surgery. She had a liquid bowel movement this morning and feels overall much improved. Her pain has decreased and she has no further bloating. She feels hungry. Review of Systems 2 Constitutional: Constitutional: Denies chills and Denies fever(s) ENT: Denies dizziness Cardiovascular: Cardiovascular: Denies chest pain, Denies palpitations and Denies dyspnea Respiratory: Respiratory: Denies dyspnea Gastrointestinal: Gastrointestinal: Reports as per HPI Genitourinary: Genitourinary: Denies hematuria and Denies dysuria Integumentary/Breasts: Skin/Breast: Denies rash and Denies jaundice Neurologic: Denies dizziness Endocrine: Endocrine: Denies palpitations [facility] [place] Past Medical History Medical History Crohn's disease Depression Social History Social History Household Members: Family Housing: House Do you presently have visiting nurse or other home services: No Alcohol intake: current Alcohol intake frequency: holidays/special occasions only Patient Tobacco Use Status: Current everyday Tobacco user Tobacco use type: Cigarette Cigarettes Per Day: 8 Second Hand Smoke Exposure: Yes Meds Allergies Allergy/AdvReac Type Severity Reaction Status Date / Time No Known Allergies Allergy Verified 09/21/23 21:39 [No Known Allergies*] Active Medications: Current Medications Acetaminophen (Acetaminophen 325 Mg Tablet) 650 mg PO Q6H PRN PRN Reason: Pain, Mild (Pain Scale 1-3) Last Admin: 05/26/23 02:03 Dose: 650 mg Levofloxacin (Levaquin) 500 mg in 100 mls @ 100 mls/hr IV Q24H [facility] Metronidazole (Flagyl) 500 mg in 100 mls @ 100 mls/hr IV Q8H [facility] Melatonin (Melatonin 3 Mg Tablet) 6 mg PO BEDTIME PRN PRN Reason: Insomnia Methylprednisolone Sodium Succinate (Methylprednisolone Sod Succ 40 Mg/Ml Vial) 20 mg IVPUSH Q12H [facility] Stop: 05/27/23 21:01 Morphine Sulfate (Morphine Sulfate 4 Mg/Ml Cartridge) 4 mg IVPUSH Q4H PRN; Protocol PRN Reason: Pain, Severe (Pain Scale 7-10) Last Admin: 05/26/23 02:03 Dose: 4 mg Non-Formulary Medication (Mesalamine [Lialda]) 1.2 gm PO QAM [facility] Ondansetron HCl (Ondansetron Hcl 4 Mg/2 Ml Vial) 4 mg IVPUSH Q8H PRN PRN Reason: Nausea and Vomiting Sodium Chloride (0.9 % Sodium Chloride Flush 3 Ml Syringe) 3 ml IVFLUSH [facility] Last Admin: 05/26/23 08:41 Dose: 3 ml Home Medications Medication Instructions Recorded Confirmed Last Taken Type acetaminophen 500 mg tablet 500 mg PO Q6H PRN Pain 05/26/23 05/26/23 05/25/23 History cetirizine 10 mg tablet 10 mg PO DAILY 05/26/23 05/26/23 05/25/23 History dicyclomine 10 mg capsule 10 mg PO QID 05/26/23 05/26/23 05/25/23 History mesalamine 1.2 gram tablet,delayed 1.2 g PO QAM 05/26/23 05/26/23 05/25/23 History release (Lialda) multivitamin with minerals-folic 2 tab PO DAILY 05/26/23 05/26/23 05/25/23 History acid 200 mcg chewable tablet (Multivitamin Gummies) Physical Exam 2 Vital Signs: Vital Signs: Last Vital Signs Temp 97.5 F 05/26/23 08:00 Pulse 77 05/26/23 08:00 Resp 16 05/26/23 08:00 BP 98/53 L 05/26/23 08:00 Pulse Ox 94 05/26/23 08:00 O2 Del Method Room Air 05/26/23 08:00 BMI result Body Mass Index 28.4 Results Labs 05/25/23 21:25 05/26/23 05:11 Labs: Abnormal lab results 05/25/23 05/26/23 05/26/23 Range/Units 21: 00:54 05:11 WBC 18.2 H (4.8-10.8) X10*3/uL Plt Count 490 H D (160-400) X10*3/uL MPV 8.7 L (9.4-12.3) fL Neut % (Auto) 76.1 H (45-73) % Lymph % (Auto) 18.5 L (20-40) % Abs Immat Gran (auto) 0.06 H (0.00-0.03) X10*3/uL Absolute Neuts (auto) 13.9 H (2.0-8.3) x10*3/uL Chloride 111 H (96-108) mmol/L Anion Gap 10 L (12-20) Random Glucose 136 H 134 H (60-115) mg/dL Calcium 8.1 L D (8.4-10.2) mg/dL C-Reactive Protein 5.08 H (< or = 0.50) mg/dL Total Protein 5.7 L (6.5-8.0) g/dL Albumin 3.1 L (3.5-5.0) g/dL Ur Specific [place] >= 1.030 H (1.005-1.025) Short CBC 05/25/23 Range/Units 21:25 WBC 18.2 H (4.8-10.8) X10*3/uL Hgb 13.1 (12.0-16.0) g/dl Hct 39.1 (37.0-47.0) % Plt Count 490 H D (160-400) X10*3/uL BMP 05/25/23 05/26/23 21:25 05:11 Sodium 139 139 Potassium 3.6 4.1 Chloride 104 111 H Carbon Dioxide 24 22 BUN 13 10 Creatinine 0.71 0.64 Calcium 9.8 8.1 L D Liver Function 05/25/23 05/26/23 Range/Units 21:25 05:11 Total Bilirubin 0.3 0.2 (0.0-1.0) mg/dL AST 16 11 (5-31) U/L ALT 11 10 (0-31) U/L Alkaline Phosphatase 87 72 (39-117) U/L Albumin 3.7 3.1 L (3.5-5.0) g/dL Urine 05/26/23 Range/Units 00:54 Urine Color Yellow Urine Appearance Clear Urine pH 6.0 (5.0-9.0) Ur Specific [place] >= 1.030 H (1.005-1.025) Urine Protein Trace (Neg-Trace) mg/dL Urine Glucose (UA) Negative (Negative) mg/dL All other labs normal. Imaging Abdomen CT scan report/results: report reviewed and image reviewed Assessment and Plan (1) Small bowel obstruction: Status: Acute (2) Crohn's disease: Status: Acute Plan 48 year old female with Cornhs disease with 4 day history of abdominal pain, nausea and vomiting with CT scan showing thickened small bowel with proximally dilated small bowel consistent with SBO secondary to Crohns flare. She has been started on IV steroids. Awaiting GI consult. She feels improved. Recommend continuing IV steroids and supportive measures. She now has return of GI function, will advance to clears and further as tolerated. No surgical intervention warranted at this time. Time Spent With Patient Time: Total time managing care of this patient today ____ minutes. Procedures Date of Service Date of Service: 05/26/23
[2023-05-26] MEDS: levoFLOXacin/D5W 500 MG/100 ML PIGGYBACK 100 MG IV (09:55)
[2023-05-26] MEDS: methylPREDNISolone Sod Succ 40 MG/ML VIAL 20 MG IVPUSH ×2 (09:55→21:23)
[2023-05-26] MEDS: metroNIDAZOLE/NS 500 MG/100 ML PIGGYBACK 100 MG IV ×2 (12:12→18:32)
[2023-05-26] MEDS: Dicyclomine HCl 10 MG CAPSULE PO ×3 (12:12→19:31)
[2023-05-26 12:31] VITALS: BP 102/54; PULSE 75
--- NOTE | 2023-05-26 12:54 | HO.PM.IMPN ---
Subjective Subjective Date of Service: 05/26/23 Interval History: Being followed for Crohn's flare and sbo , complaining abdominal pain, denies nausea vomiting on clear liquid diet, no fevers, no chills, no lightheadedness, no dizziness, no urinary symptoms, had nonbloody bowel movement this morning. Review of Systems All other system reviewed and negative Physical Exam Vital Signs: Vital Signs: Last Vital Signs Temp 97.5 F 05/26/23 08:00 Pulse 75 05/26/23 12:31 Resp 16 05/26/23 08:00 BP 102/54 L 05/26/23 12:31 Pulse Ox 94 05/26/23 08:00 O2 Del Method Room Air 05/26/23 08:00 BMI result Body Mass Index 28.4 Const: Other: General awake alert x3, in no acute distress. Neck supple no JVD. CVS regular rate rhythm, Respiratory lungs clear to auscultation, no respiratory distress, no wheeze, no rhonchi. Gastrointestinal abdomen soft, bowel sounds audible, mild mid abdominal tenderness to palpation, no guarding , no rigidity. Extremities no , edema. Neuro nonfocal , Skin no rash Psych appropriate affect Objective Data Active Medications Acetaminophen (Acetaminophen 325 Mg Tablet) 650 mg PO Q6H PRN PRN Reason: Pain, Mild (Pain Scale 1-3) Last Admin: 05/26/23 02:03 Dose: 650 mg Documented By: BRUCE Dicyclomine HCl (Dicyclomine Hcl 10 Mg Capsule) 10 mg PO QID [facility] Last Admin: 05/26/23 12:12 Dose: 10 mg Documented By: MICAELA Levofloxacin (Levaquin) 500 mg in 100 mls @ 100 mls/hr IV Q24H [facility] Last Infusion: 05/26/23 12:09 Dose: Infused Documented By: MICAELA Metronidazole (Flagyl) 500 mg in 100 mls @ 100 mls/hr IV Q8H [facility] Last Admin: 05/26/23 12:12 Dose: 100 mls/hr Documented By: MICAELA Melatonin (Melatonin 3 Mg Tablet) 6 mg PO BEDTIME PRN PRN Reason: Insomnia Methylprednisolone Sodium Succinate (Methylprednisolone Sod Succ 40 Mg/Ml Vial) 20 mg IVPUSH Q12H [facility] Stop: 05/27/23 22:01 Last Admin: 05/26/23 09:55 Dose: 20 mg Documented By: MARGARET Morphine Sulfate (Morphine Sulfate 4 Mg/Ml Cartridge) 4 mg IVPUSH Q4H PRN; Protocol PRN Reason: Pain, Severe (Pain Scale 7-10) Last Admin: 05/26/23 12:24 Dose: 4 mg Documented By: MICAELA Lialda 1.2 Gm 1 each PO DAILY [facility] Ondansetron HCl (Ondansetron Hcl 4 Mg/2 Ml Vial) 4 mg IVPUSH Q8H PRN PRN Reason: Nausea and Vomiting Sodium Chloride (0.9 % Sodium Chloride Flush 3 Ml Syringe) 3 ml IVFLUSH QSHIFT [facility] Last Admin: 05/26/23 08:41 Dose: 3 ml Documented By: MARGARET Labs 05/25/23 21:25 05/26/23 05:11 Labs: Laboratory Results - last 24 hr 05/25/23 05/26/23 05/26/23 21:25 00:54 05:11 MCV 82.8 MCH 27.8 MCHC 33.5 RDW 14.4 Plt Count 490 H D MPV 8.7 L Immature Gran % (Auto) 0.3 Neut % (Auto) 76.1 H Lymph % (Auto) 18.5 L [place] % (Auto) 2.4 Eos % (Auto) 2.2 Baso % (Auto) 0.5 Lymph # (Auto) 3.4 [place] # (Auto) 0.4 Eos # (Auto) 0.4 Baso # (Auto) 0.1 Abs Immat Gran (auto) 0.06 H Absolute Neuts (auto) 13.9 H Absolute Nucleated RBC 0.000 Nucleated RBC % (auto) 0.0 ESR 17 Anion Gap 15 10 L Estim Creat Clear Calc 93.7 106.7 Estimated GFR > 60 > 60 Random Glucose 136 H 134 H Lactic Acid 0.8 Calcium 9.8 8.1 L D Magnesium 1.7 Total Bilirubin 0.3 0.2 AST 16 11 ALT 11 10 Alkaline Phosphatase 87 72 C-Reactive Protein 5.08 H Total Protein 7.2 5.7 L Albumin 3.7 3.1 L Lipase 13 Urine Color Yellow Urine Appearance Clear Urine pH 6.0 Ur Specific [place] >= 1.030 H Urine Protein Trace Urine Glucose (UA) Negative Urine Ketones 15 Urine Blood Negative Urine Nitrite Negative Ur Leukocyte Esterase Negative COVID-19 (ALICIA) Negative COVID-19 Clin Com See Note Influenza Type A (RICHARD) Negative Influenza Type B (RICHARD) Negative Influenza A & B Note See Note Assessment and Plan (1) Crohn's disease: Status: Acute (2) Small bowel obstruction: Status: Acute Plan 48-year-old female with pertinent history of Crohn's disease, mood disorder who presents to the emergency department for evaluation of abdominal pain and vomiting. #. Crohn's flare with small-bowel obstruction Persistent mid abdominal pain, non bloody bowel movement, no fevers no chills, elevated CRP and WBC Continue clear liquid diet, continue IV morphine prn Seen by General surgery patient is return of GI function they agree with clear liquid diet, no surgical intervention at this time Case discussed with Dr. Lopez he recommend IV Solu-Medrol 20 mg b.i.d. times 48 hours then prednisone 40 mg daily with slow taper , will add IV Levaquin and Flagyl, check for C diff Stable H&H, follow CBC Resume home medication mesalamine and Bentyl #. Tobacco use disorder counseling done place on nicotine gum prn DVT prophylaxis: Mechanical Continue inpatient hospitalization for acute Crohn's flare requiring IV steroids and expert consultation. Time Spent With Patient Time: Total time managing care of this patient today ____ minutes. Quality Stroke Does the patient have a stroke diagnosis?: No VTE Prior VTE?: No VTE Risk Level:: Medical - moderate - high VTE Device Contraindication: N/A - Device Ordered VTE Drug Contraindication: Treatment Not Indicated
--- NOTE | 2023-05-26 14:19 | MHC.CLN ---
RE: CONSULT FOR WT LOSS PREVIOUS WT HX REVEALS: 75.1KG (05/26/23) 68.9KG (06/24/22) 74.8KG (08/19/21) PT WITH NONSIGNIFICANT WT GAIN OVERALL X 2 YEARS. MONITOR PO INTAKE
--- NOTE | 2023-05-26 14:29 | MHC.CM.PN ---
pt lives with is independent has own ride home does not expect to need asstance when dcd dc plan home no servics
[2023-05-26] MEDS: Nicotine Polacrilex Lozenge 2 MG LOZENGE BUCCAL (14:33)
[2023-05-26 15:59] VITALS: BP 109/58; PULSE 80; RESP 20; TEMP 36.4; O2SAT 98
[2023-05-26 18:59] VITALS: BP 120/61; PULSE 66; RESP 20; TEMP 36.3; O2SAT 99
[2023-05-27 02:57] VITALS: BP 118/55; PULSE 69; RESP 16; TEMP 36; O2SAT 97
[2023-05-27] MEDS: Morphine Sulfate 4 MG/ML CARTRIDGE 2 MG IVPUSH (03:44)
[2023-05-27] MEDS: metroNIDAZOLE/NS 500 MG/100 ML PIGGYBACK 100 MG IV ×3 (03:45→18:02)
[2023-05-27 06:43] LABS: Hematocrit 29.4 % (37.0-47.0); Hemoglobin 9.5 g/dl (12.0-16.0); Mean Corpuscular HGB Conc 32.3 g/dl (31.0-35.0); Mean Corpuscular Hemoglobin 27.7 pg (27.0-33.0); Mean Corpuscular Volume 85.7 fL (80.0-98.0); Mean Platelet Volume 8.9 fL (9.4-12.3); Platelet Count 360 X10*3/uL (160-400); Red Blood Count 3.43 X10*6/uL (4.20-5.50); Red Cell Distribution Width 14.5 % (11.0-16.0); White Blood Count 10.1 X10*3/uL (4.8-10.8)
[2023-05-27 06:57] LABS: Anion Gap 12 (12-20); Blood Urea Nitrogen 8 mg/dL (9-16); Calcium 8.9 mg/dL (8.4-10.2); Carbon Dioxide 23 mmol/L (22-29); Chloride 108 mmol/L (96-108); Creatinine Clr Calc Pharmacy 106.7; Estimated Glomerular Filt Rate > 60; Glucose Random 125 mg/dL (60-115); Potassium 4.4 mmol/L (3.3-5.1); Sodium 139 mmol/L (135-145)
[2023-05-27 07:11] VITALS: BP 115/61; PULSE 71; RESP 18; TEMP 36.1; O2SAT 98
[2023-05-27 08:00] LABS: Iron 46 mcg/dL (30-160); Percent Iron Saturation 21 % (15-50); Total Iron Binding Capacity 223 mcg/dL (228-428); Unsaturated Iron Binding 177 ug/dL
[2023-05-27 08:20] LABS: Ferritin 98 ng/mL (10-250)
[2023-05-27] MEDS: levoFLOXacin/D5W 500 MG/100 ML PIGGYBACK 100 MG IV (09:13)
[2023-05-27] MEDS: methylPREDNISolone Sod Succ 40 MG/ML VIAL 20 MG IVPUSH ×2 (09:13→21:47)
[2023-05-27] MEDS: Dicyclomine HCl 10 MG CAPSULE PO ×4 (09:13→20:59)
[2023-05-27] MEDS: 0.9 % Sodium Chloride Flush 3 ML SYRINGE IVFLUSH ×3 (09:13→21:00)
[2023-05-27] MEDS: Acetaminophen 325 MG TABLET 650 MG PO ×2 (09:21→18:07)
[2023-05-27 09:41] LABS: Folate 14.9 ng/mL (> or = 4.0); Vitamin B12 1102 pg/mL (200-900)
--- NOTE | 2023-05-27 11:45 | HO.PM.IMPN ---
Subjective Subjective Date of Service: 05/27/23 Interval History: crohn flare Review of Systems has abd pain seems more tolerable , no fevers generalised weak Physical Exam Vital Signs: Vital Signs: Last Vital Signs Temp 97 F 05/27/23 07:11 Pulse 71 05/27/23 07:11 Resp 18 05/27/23 07:11 BP 115/61 05/27/23 07:11 Pulse Ox 98 05/27/23 07:11 O2 Del Method Room Air 05/27/23 07:11 BMI result Body Mass Index 28.4 Appearance: Alert.? Oriented X3.? cvs: rrr, [id number] , no murmur res: clear to auscultation ,no rhonchii or wheezing abd: no rebound or guarding ,mild mid abdominal tenderness to palpation, bs present. ext pulses present , no cyanosis . neuro: axo3 , nonfocal. Objective Data Active Medications Acetaminophen (Acetaminophen 325 Mg Tablet) 650 mg PO Q6H PRN PRN Reason: Pain, Mild (Pain Scale 1-3) Last Admin: 05/27/23 09:21 Dose: 650 mg Documented By: MARGARET Dicyclomine HCl (Dicyclomine Hcl 10 Mg Capsule) 10 mg PO QID [facility] Last Admin: 05/27/23 09:13 Dose: 10 mg Documented By: MARGARET Levofloxacin (Levaquin) 500 mg in 100 mls @ 100 mls/hr IV Q24H [facility] Last Infusion: 05/27/23 10:43 Dose: Infused Documented By: MARGARET Metronidazole (Flagyl) 500 mg in 100 mls @ 100 mls/hr IV Q8H [facility] Last Infusion: 05/27/23 11:42 Dose: Infused Documented By: MARGARET Melatonin (Melatonin 3 Mg Tablet) 6 mg PO BEDTIME PRN PRN Reason: Insomnia Methylprednisolone Sodium Succinate (Methylprednisolone Sod Succ 40 Mg/Ml Vial) 20 mg IVPUSH Q12H [facility] Stop: 05/27/23 22:01 Last Admin: 05/27/23 09:13 Dose: 20 mg Documented By: MARGARET Morphine Sulfate (Morphine Sulfate 4 Mg/Ml Cartridge) 2 mg IVPUSH Q4H PRN; Protocol PRN Reason: Pain, Severe (Pain Scale 7-10) Last Admin: 05/27/23 03:44 Dose: 2 mg Documented By: FAVIAN Nicotine Polacrilex (Nicotine Polacrilex 2 Mg Gum) 2 mg BUCCAL Q2H PRN PRN Reason: Nicotine Cravings Lialda 1.2 Gm 1 each PO DAILY [facility] Last Admin: 05/27/23 09:13 Dose: 1 each Documented By: MARGARET Ondansetron HCl (Ondansetron Hcl 4 Mg/2 Ml Vial) 4 mg IVPUSH Q8H PRN PRN Reason: Nausea and Vomiting Sodium Chloride (0.9 % Sodium Chloride Flush 3 Ml Syringe) 3 ml IVFLUSH QSHIFT [facility] Last Admin: 05/27/23 09:13 Dose: 3 ml Documented By: MARGARET Labs 05/27/23 06:33 05/27/23 06:33 Labs: Laboratory Results - last 24 hr 05/27/23 05/27/23 06:33 08:20 MCV 85.7 MCH 27.7 MCHC 32.3 RDW 14.5 Plt Count 360 D MPV 8.9 L Absolute Nucleated RBC 0.000 Nucleated RBC % (auto) 0.0 Anion Gap 12 Estim Creat Clear Calc 106.7 Estimated GFR > 60 Random Glucose 125 H Calcium 8.9 D Iron 46 TIBC 223 L % Saturation 21 Unsat Iron Binding 177 Ferritin 98 Vitamin B12 1102 H Folate 14.9 Assessment and Plan (1) Crohn's disease: Status: Acute Plan 48-year-old female with pertinent history of Crohn's disease, mood disorder who presents to the emergency department for evaluation of abdominal pain and vomiting. Crohn's flare with small-bowel obstruction leucocytosis seems improved , no fever,Persistent mid abdominal pain, non bloody bowel movement elevated CRp. Seen by General surgery patient is return of GI function they agree with clear liquid diet, no surgical intervention at this time Stable H&H, follow CBC Case discussed with Dr. Lopez he recommend -continue IV Solu-Medrol 20 mg b.i.d. times 48 hours then prednisone 40 mg daily with slow taper , IV Levaquin and Flagyl, check for C diff will try to switch to full liquid diet if tolerates then will advance to regular diet, continue IV morphine prn Tobacco use disorder counseling done place on nicotine gum prn DVT prophylaxis: Mechanical inpatient hospitalization: acute Crohn's flare requiring IV steroids and antibiotics . Time Spent With Patient Time: Total time managing care of this patient today ____ minutes. Quality Stroke Does the patient have a stroke diagnosis?: No VTE Prior VTE?: No VTE Risk Level:: Medical - moderate - high VTE Device Contraindication: N/A - Device Ordered VTE Drug Contraindication: Treatment Not Indicated
[2023-05-27] MEDS: Butalb/Acetamin/Caff 50/325/40 TABLET 1 TAB PO (11:55)
[2023-05-27 15:36] VITALS: BP 127/65; PULSE 55; RESP 18; TEMP 36.6; O2SAT 98
[2023-05-27] MEDS: ondansetron HCL 4 MG/2 ML VIAL IVPUSH (18:10)
[2023-05-28 02:49] VITALS: BP 100/51; PULSE 57; RESP 16; TEMP 36; O2SAT 99
[2023-05-28] MEDS: metroNIDAZOLE/NS 500 MG/100 ML PIGGYBACK 100 MG IV (03:15)
[2023-05-28 07:10] VITALS: BP 109/56; PULSE 57; RESP 16; TEMP 36.4; O2SAT 98
[2023-05-28] MEDS: Dicyclomine HCl 10 MG CAPSULE PO (08:41)
[2023-05-28] MEDS: levoFLOXacin/D5W 500 MG/100 ML PIGGYBACK 100 MG IV (08:41)
[2023-05-28] MEDS: 0.9 % Sodium Chloride Flush 3 ML SYRINGE IVFLUSH (08:41)
--- NOTE | 2023-05-28 10:48 | P.DS_ITS ---
DS: Providers Provider Date of Service: 05/28/23 Date of admission: 05/26/23 00:21 Date of discharge: 05/28/23 Primary care physician: Unknown Physician Consults: 05/26/23 00:17 Consult to General Surgery Stat Consulting Provider: [facility] General Surgeons Reason for consultation: SBO with crohns 05/26/23 00:59 Consult to Gastroenterology Routine Consulting Provider: Tamar Lopez Reason for consultation: Crohns flare DS: Diagnosis Discharge Diagnosis (1) Crohn's disease: Status: Acute DS: Summary Hospital Course Hospital Course: 48-year-old female with pertinent history of Crohn's disease, mood disorder who presents to the emergency department for evaluation of abdominal pain and vomiting. Patient states that about 4 days prior to presentation she had an episode of abdominal pain and bright red blood in stool. Subsequently over the next 4 days, her abdominal pain was progressive, generalized, nonradiating and without any relieving factors. Her last bowel movement was 3 days prior to presentation. Patient with multiple episodes of vomiting on the day of presentation. Unable to keep anything down. Reduced p.o. intake. Also has associated chills. No fever, chest discomfort, palpitations, shortness of breath, hematemesis, changes in urinary habits. In the emergency department, imaging with small-bowel obstruction. Hospital course: patient came to the hospital because Crohn's flare with small-bowel obstruction- leukocytosis seems to be improved, started on IV antibiotics and steroids-seems to be improved significantly: Patient is producing bowels, abdominal pain resolved. patient is toleratiing diet .Patient will be going home with p.o. Flagyl and steroids. patient need to follow up her GI or call [facility] Gi Dr Lopez office. Above management discussed with the patient in detail length-assessment plan coordination time spent 50 minute. Time Spent with Patient Time attestation: Total time managing care of this patient today ____ minutes. Discharge coordination time: Greater than 30 minutes Quality: Safe Use of Opioids Does Pt have an Active Cancer Diagnosis on the Problem List?: No Quality: Stroke Does the patient have a stroke diagnosis?: No Physical Exam Vital Signs: Vital Signs: Last Vital Signs Temp 97.5 F 05/28/23 07:10 Pulse 57 05/28/23 07:10 Resp 16 05/28/23 07:10 BP 109/56 L 05/28/23 07:10 Pulse Ox 98 05/28/23 07:10 O2 Del Method Room Air 05/28/23 07:10 BMI result Body Mass Index 28.4 Appearance: Alert.? Oriented X3.? cvs: rrr, [id number] , no murmur res: clear to auscultation ,no rhonchii or wheezing abd: no rebound or guarding ,nt, bs present. ext pulses present , no cyanosis . neuro: axo3 , nonfocal. DS: Data Imaging Chest x-ray: Radiologist's impression: ITS Impressions Abdomen/Pelvis CT 05/25/23 22:22 IMPRESSION: 1. Thick-walled, inflamed appearance of the distal small bowel/terminal ileum, in keeping with the history of Crohn's disease. Associated small bowel obstruction, likely secondary to stricturing, with dilated fluid-filled small bowel loops throughout the abdomen. 2. Small amount of free fluid. 3. Prominent mesenteric lymph nodes, favored to be reactive. 4. Cholelithiasis. Discharge Plan Discharge Anticipated Discharge Date/Time: 05/28/23 09:21 Patient Disposition: Home, Self-Care Discharge Diagnosis: Crohn disease flare. Referrals: Tamar Lopez MD [Physician] - 1 Week (follow up outpatient.) Physician,Mike J [Primary Care Provider] - 1 Week Discharge Medications: New prednisone 10 mg tablet 10 mg PO DIRECTED Qty: 68 0RF Rx Instructions: see taper instructions: Prednisone 40 mg for 6 days then prednisone 30 mg for 7 days, metronidazole 500 mg tablet 500 mg PO Q12H Qty: 10 0RF Continued cetirizine 10 mg tablet 10 mg PO DAILY dicyclomine 10 mg capsule 10 mg PO QID mesalamine [Lialda] 1.2 gram tablet,delayed release (DR/EC) 1.2 g PO QAM acetaminophen 500 mg Tablet 500 mg PO Q6H PRN (Reason: Pain) Multivitamin Gummies 200 mcg Tablet,Chewable 2 tab PO DAILY Discharge Orders: Discharge Order (Routine); Ordered 05/28/23 Ordered By: Lisha Thompson Diet: Advance to usual diet Activity on Discharge: As tolerated Stand Alone Forms: Patient Portal Discharge page Care Plan Goals: patient came to the hospital because Crohn's flare with small-bowel obstruction-leukocytosis seems to be improved, started on IV antibiotics and steroids-seems to be improved significantly: Patient is producing bowels, abdominal pain resolved. Patient will be going home with p.o. Flagyl and steroids. patient need to follow up her GI or call [facility] Gi Dr Lopez office. Above management discussed with the patient in detail length-assessment plan coordination time spent 50 minute. Health Concerns: As above. Plan of Treatment: As above. Assessment: As well.
[2023-05-28] MEDS: predniSONE 20 MG TABLET 40 MG PO (11:04)
--- NOTE | 2023-05-28 13:06 | MHC.CM.PN ---
PT WILL DC HOME TODAY WITH NO SERVICES VIA SELF TRANSPORT
== END 2023-05-28 13:01 | disposition home or self-care (01) | DRG 245 ==
LOC: HO.ED 22:01 → HO.EDOVER 05-26 00:27 → HO.S3 05-26 00:41
PROVIDERS: Hospitalist; Nurse Practitioner Family; Admitting Provider Student in an Organized Health Care Education/Training Program; Emergency Provider Emergency Medicine; Visit Provider Internal Medicine
DX: K50.011 Crohn's disease of small intestine with rectal bleeding (principal); F17.210 Nicotine dependence, cigarettes, uncomplicated; K50.012 Crohn's disease of small intestine with intestinal obstruction; Z20.822 Contact with and (suspected) exposure to COVID-19; Z23 Encounter for immunization; Z71.6 Tobacco abuse counseling; Z79.899 Other long term (current) drug therapy
CPT/HCPCS: 36415; 74177; 80048; 80053; 81003; 82607; 82728; 82746; 83540; 83605; 83690; 83735; 85025; 85027; 85652; 86140; 87502; 87635; 90686; 99285; J1956; J2270; J2405; J2920; J2930; Q9967

== ENCOUNTER → 2023-05-26 00:21 | Outpatient (BNV) | payer OTHER, SELFPAY | PROVIDERS: Admitting Provider Student in an Organized Health Care Education/Training Program; Emergency Provider Emergency Medicine; Visit Provider Physician Assistant Surgical | DX: K56.609 Unspecified intestinal obstruction, unspecified as to partial versus complete obstruction (principal); K50.90 Crohn's disease, unspecified, without complications | CPT/HCPCS: 99222 ==

== ENCOUNTER → 2023-05-26 00:21 | Outpatient (BNV) | payer OTHER, SELFPAY | PROVIDERS: Admitting Provider Student in an Organized Health Care Education/Training Program; Emergency Provider Emergency Medicine; Visit Provider Internal Medicine Gastroenterology | DX: K50.012 Crohn's disease of small intestine with intestinal obstruction (principal); K56.609 Unspecified intestinal obstruction, unspecified as to partial versus complete obstruction | CPT/HCPCS: 99223 ==

== ENCOUNTER → 2023-05-26 00:21 | Outpatient (BNV) | payer OTHER, SELFPAY | PROVIDERS: Admitting Provider Student in an Organized Health Care Education/Training Program; Emergency Provider Emergency Medicine; Visit Provider Student in an Organized Health Care Education/Training Program | DX: K50.012 Crohn's disease of small intestine with intestinal obstruction (principal) | CPT/HCPCS: 99222; 99232; 99239; 99499 ==

== ENCOUNTER 2023-06-07 09:32 | Inpatient (IN) | payer OTHER, SELFPAY ==
--- NOTE | ~2023-06-07 | CT_ITS ---
EXAMINATION: CT ABDOMEN AND PELVIS WITH CONTRAST CLINICAL INFORMATION: History of chronic Crohn's disease COMPARISON: 05/25/2023 TECHNIQUE: Multidetector volumetric images were obtained from the superior aspect of the liver through the pubic symphysis following administration 85 mL of Omnipaque 350 intravenous contrast. Sagittal and coronal reformatted images were obtained on the technologist's workstation. Oral contrast: No This CT examination was performed using dose optimization techniques as appropriate, variously including the following: *Automated exposure control *Adjustment of mA and/or kV according to patient size (this includes techniques or standardized protocols for targeted exams where dose is matched to indication/reason for exam; i.e. extremities or head) *Use of iterative reconstruction technique DLP: 430 mGy-cm FINDINGS: LUNG BASES: The visualized lung bases are unremarkable. LIVER, GALLBLADDER, AND BILIARY TREE: The liver is normal in size, shape, and attenuation. No focal hepatic lesion or biliary ductal dilatation is present. Gallstones are noted PANCREAS: Unremarkable. SPLEEN: Unremarkable. ADRENAL GLANDS: Unremarkable. KIDNEYS AND URETERS: The kidneys are normal in size, shape, and attenuation. No hydronephrosis, hydroureter, or calculi seen. No perinephric stranding. BLADDER: Unremarkable. GASTROINTESTINAL TRACT: This exam is very similar to previous. There is thickening of mucosa in the distal small bowel with dilatation of bowel more proximal. There is some adjacent mesenteric fluid noted. Fluid is felt to be increasing from previous.. There is a tiny focus of air on image 387 of series 4 which possibly is an the mesenteric fluid versus an adjacent bowel loop There are also once again some loops of more proximal small bowel which show mucosal thickening. Similar to previous. This exam is also showing free fluid in the deep pelvis appears slightly more volume than previous. Moderate ABDOMINAL WALL: No significant hernia is appreciated. LYMPH NODES: Once again some prominent nodes are seen here. These may well be reactive. VASCULAR: Unremarkable. PELVIC VISCERA: Again some free pelvic fluid OSSEOUS STRUCTURES: Unremarkable. CT/CT abdomen pelvis w IV con IMPRESSION: Overall exam is similar to previous. Thick-walled distal small bowel consistent with inflammatory bowel disease given the patient's history and there is also some moderate length thickening of mucosa in some proximal small bowel which would be consistent with disease. There is persistent dilatation of mid small bowel. This may be consistent with at least a least partial obstruction. As described there is some increasing fluid here both in the deep pelvis and mesenteric region. Tiny focus of air is identified in the mesenteric region in the right lower quadrant which could possibly be in an adjacent bowel loop. Early abscess formation cannot be excluded. Attention to follow-up Fleischner guidelines were followed.
[2023-06-07 09:49] VITALS: BP 123/74; PULSE 95; RESP 20; TEMP 36.4; O2SAT 99; BMI 26.6
[2023-06-07 10:44] LABS: Basophils Percent Auto 0.2 % (0-2); Eosinophils Absolute Auto 0.1 X10*3/uL (0.0-0.4); Eosinophils Percent Auto 0.4 % (0-4); Hematocrit 36.6 % (37.0-47.0); Hemoglobin 12.1 g/dl (12.0-16.0); Imm Gran Abs Auto 0.06 X10*3/uL (0.00-0.03); Imm Gran Pct Auto 0.4 % (0.0-0.4); Lymphocytes Absolute Auto 2.2 X10*3/uL (1.2-4.9); Lymphocytes Percent Auto 13.3 % (20-40); MANUAL DIFF FLAG SCAN; Mean Corpuscular HGB Conc 33.1 g/dl (31.0-35.0); Mean Corpuscular Volume 84.7 fL (80.0-98.0); Mean Platelet Volume 8.7 fL (9.4-12.3); Monocytes Absolute Auto 0.2 X10*3/uL (0.1-1.2); Monocytes Percent Auto 1.2 % (2-11); Neutrophils Absolute Auto 13.8 x10*3/uL (2.0-8.3); Neutrophils Percent Auto 84.5 % (45-73); Platelet Count 460 X10*3/uL (160-400); Red Blood Count 4.32 X10*6/uL (4.20-5.50); Red Cell Distribution Width 15.7 % (11.0-16.0); SCAN SMEAR FLAG 1; White Blood Count 16.3 X10*3/uL (4.8-10.8)
[2023-06-07 11:04] LABS: Alanine Aminotransferase 17 U/L (0-31); Albumin Level 3.8 g/dL (3.5-5.0); Alkaline Phosphatase 65 U/L (39-117); Anion Gap 14 (12-20); Aspartate Amino Transferase 15 U/L (5-31); Bilirubin Direct 0.1 mg/dL (0.0-0.5); Bilirubin Total 0.4 mg/dL (0.0-1.0); Blood Urea Nitrogen 13 mg/dL (9-16); Calcium 9.6 mg/dL (8.4-10.2); Carbon Dioxide 19 mmol/L (22-29); Chloride 106 mmol/L (96-108); Estimated Glomerular Filt Rate > 60; Glucose Random 132 mg/dL (60-115); Lipase 12 U/L (8-78); Potassium 4.3 mmol/L (3.3-5.1); Sodium 135 mmol/L (135-145); Total Protein 6.9 g/dL (6.5-8.0)
[2023-06-07 11:06] LABS: SLIDE REVIEW VERIFIED
--- NOTE | 2023-06-07 11:06 | ED_ITS ---
HPI - Abdominal Pain General Chief Complaint: Abdominal Pain Stated Complaint: crohn's disease , having flare up Time Seen by Provider: 06/07/23 10:59 Source: patient Limitations: no limitations History of Present Illness HPI narrative: This is a 48 years old female presented to the emergency department complaining of abdominal pain since yesterday. She has history of Crohn's disease she takes prednisone. Denies fever and vomiting. She was seen emergency room on May 25 with a small-bowel obstruction MD elicited complaint: abdominal pain Onset (ago): day(s) (1) Pain Consistency: constant Location: diffuse Severity: moderate Quality: cramping Migration to: no migration Exacerbating factors: nothing Relieving factors: nothing Associated symptoms: denies other symptoms Related Data Home Medications Medication Instructions Recorded Confirmed acetaminophen 500 mg tablet 500 mg PO Q6H PRN Pain 05/26/23 05/26/23 cetirizine 10 mg tablet 10 mg PO DAILY 05/26/23 05/26/23 dicyclomine 10 mg capsule 10 mg PO QID 05/26/23 05/26/23 mesalamine 1.2 gram tablet,delayed 1.2 g PO QAM 05/26/23 05/26/23 release (Lialda) multivitamin with minerals-folic 2 tab PO DAILY 05/26/23 05/26/23 acid 200 mcg chewable tablet (Multivitamin Gummies) Previous Rx's Medication Instructions Recorded metronidazole 500 mg tablet 500 mg PO Q12H #10 tabs 05/28/23 prednisone 10 mg tablet 10 mg PO DIRECTED #68 tabs 05/28/23 Allergies Allergy/AdvReac Type Severity Reaction Status Date / Time No Known Allergies Allergy Verified 06/07/23 09:51 [No Known Allergies*] Review of Systems Constitutional: Reports no additional constitutional complaints Eyes: Reports no additional eye complaints Cardiovascular: Reports no additional cardiovascular complaints Musculoskeletal: Reports no additional musculoskeletal complaints [facility] Past Medical History Source: unable to obtain Medical History Crohn's disease Depression Social History Social History Household Members: Family Housing: House Do you presently have visiting nurse or other home services: No Alcohol intake: current Alcohol intake frequency: holidays/special occasions only Patient Tobacco Use Status: Current everyday Tobacco user Tobacco use type: Cigarette Cigarettes Per Day: 8 Second Hand Smoke Exposure: Yes Advance Directives: No service: No Physical Exam ED Vital Signs: Vital Signs - 24 hr 06/07/23 09:49 Temperature 97.6 F Pulse Rate 95 Respiratory Rate 20 Blood Pressure 123/74 Pulse Oximetry 99 Oxygen Delivery Method Room Air BMI result Body Mass Index 26.6 Const General: cooperative Nutritional Appearance: well nourished Orientation/consciousness: patient oriented x3 Limitations: no limitations HENMT Head: Yes normal to inspection Ears: hearing grossly normal bilaterally Mouth: Normal oral and palatal mucosa present Throat: Yes posterior oropharynx normal Chest Chest palpation & inspection: normal inspection of the chest Resp Effort & Inspection: normal respiratory effort Cardio Jugular venous distension: no JVD Rate: regular rate GI Palpation (GI): Tenderness to palpation present (GI) Skin General skin exam: no rashes or lesions noted and elasticity normal Rashes: no rashes Neuro General: patient oriented x3 Course Reevaluation(s) Reevaluation #1: seen by Dr Jeffers in ED Time: 14:03 Medical Decision Making Medical Decision Making [facility] Narrative: Patient presents to the emergency department complaining of abdominal pain will get labs provide analgesia/CT scan Differential Diagnosis Differential Diagnoses: The differential diagnosis associated with the presentation includes Exacerbation of Crohn's/SBO Admission/Observation Consideration of admission/observation: Escalation of care including admission/observation considered Consult Healthcare Provider Management of the patient was discussed with: Hospitalist Dr Sage and Dr Jeffers (surgery) Lab Data MDM Lab Attestation statement: I reviewed the patient's lab results. 06/07/23 10:39 06/07/23 10:39 Labs: Lab Results 06/07/23 Range/Units 10:39 WBC 16.3 H (4.8-10.8) X10*3/uL RBC 4.32 D (4.20-5.50) X10*6/uL Hgb 12.1 D (12.0-16.0) g/dl Hct 36.6 L D (37.0-47.0) % MCV 84.7 (80.0-98.0) fL MCH 28.0 (27.0-33.0) pg MCHC 33.1 (31.0-35.0) g/dl RDW 15.7 (11.0-16.0) % Plt Count 460 H D (160-400) X10*3/uL MPV 8.7 L (9.4-12.3) fL Immature Gran % (Auto) 0.4 (0.0-0.4) % Neut % (Auto) 84.5 H (45-73) % Lymph % (Auto) 13.3 L (20-40) % Walker % (Auto) 1.2 L (2-11) % Eos % (Auto) 0.4 (0-4) % Baso % (Auto) 0.2 (0-2) % Lymph # (Auto) 2.2 (1.2-4.9) X10*3/uL Walker # (Auto) 0.2 (0.1-1.2) X10*3/uL Eos # (Auto) 0.1 (0.0-0.4) X10*3/uL Baso # (Auto) 0.0 (0.0-0.2) X10*3/uL Abs Immat Gran (auto) 0.06 H (0.00-0.03) X10*3/uL Absolute Neuts (auto) 13.8 H (2.0-8.3) x10*3/uL Absolute Nucleated RBC 0.000 (0.0-0.012) X10*3/uL Nucleated RBC % (auto) 0.0 (0.0-0.2) /100WBC Smear Tech's Comments VERIFIED Sodium 135 (135-145) mmol/L Potassium 4.3 (3.3-5.1) mmol/L Chloride 106 (96-108) mmol/L Carbon Dioxide 19 L (22-29) mmol/L Anion Gap 14 (12-20) BUN 13 (9-16) mg/dL Creatinine 0.69 (0.5-1.4) mg/dL Estim Creat Clear Calc 96.0 Estimated GFR > 60 Random Glucose 132 H (60-115) mg/dL Calcium 9.6 D (8.4-10.2) mg/dL Total Bilirubin 0.4 (0.0-1.0) mg/dL Direct Bilirubin 0.1 (0.0-0.5) mg/dL AST 15 (5-31) U/L ALT 17 (0-31) U/L Alkaline Phosphatase 65 (39-117) U/L Total Protein 6.9 (6.5-8.0) g/dL Albumin 3.8 (3.5-5.0) g/dL Lipase 12 (8-78) U/L Independent Interpretation I performed an independent interpretation of an: CT Scan Interpretation: partial SBO Radiology Impression Discussion of test interpretation with radiology: I have reviewed the radiologist's reading. Radiologist Impression: odes are seen here. These may well be reactive. VASCULAR: Unremarkable. PELVIC VISCERA: Again some free pelvic fluid OSSEOUS STRUCTURES: Unremarkable. CT/CT abdomen pelvis w IV con IMPRESSION: Overall exam is similar to previous. Thick-walled distal small bowel consistent with inflammatory bowel disease given the patient's history and there is also some moderate length thickening of mucosa in some proximal small bowel which would be consistent with disease. There is persistent dilatation of mid small bowel. This may be consistent with at least a least partial obstruction. As described there is some increasing fluid here both in the deep pelvis and mesenteric region. Tiny focus of air is identified in the mesenteric region in the right lower quadrant which could possibly be in an adjacent bowel loop. Early abscess formation cannot be excluded. Attention to follow-up Fleischner guidelines were followed. Dictated By: Audi Ashford MD Signed By: <Electronically signed by Audi Ashford MD in OV> 06/07/23 1349 DD/ 1156 Independent Historian Clinical information obtained from an independent historian. History obtained from or confirmed by: Other (daughter) External Record Review External record reviewed: Inpatient record Prescription Management I considered prescription management with: Pain Medication Chronic Conditions Patient?s care impacted by: Other (Chron's disease) Medications Administered Discontinued Medications Generic Name Dose Route Start Last Admin Trade Name Freq PRN Reason Stop Dose Admin Hydromorphone HCl 0.5 mg 06/07/23 11:04 06/07/23 11:21 Hydromorphone Hcl 0.5 Mg/0.5 Ml Syringe IVPUSH 06/07/23 11:05 0.5 mg ONCE ONE Administration Protocol Hydromorphone HCl 0.5 mg 06/07/23 12:33 06/07/23 12:44 Hydromorphone Hcl 0.5 Mg/0.5 Ml Syringe IVPUSH 06/07/23 12:34 0.5 mg ONCE ONE Administration Protocol Sodium Chloride 1,000 mls @ 999 mls/hr 06/07/23 11:15 06/07/23 14:16 Ns IVCONT 06/07/23 12:15 Infused .Q1H1M ALONDRA Infusion Iohexol 85 ml 06/07/23 11:54 06/07/23 11:55 Iohexol 350 Mg/Ml 100 Ml Infus..Btl IV 06/07/23 11:55 85 ml ONCE ONE Administration Ondansetron HCl 4 mg 06/07/23 11:04 06/07/23 11:21 Ondansetron Hcl 4 Mg/2 Ml Vial IVPUSH 06/07/23 11:05 4 mg ONCE ONE Administration Discharge Plan Discharge Clinical Impression: Crohn's disease, Abdominal pain, SBO (small bowel obstruction) Patient Disposition: Admitted As Inpatient
[2023-06-07] MEDS: HYDROmorphone HCl 0.5 MG/0.5 ML SYRINGE IVPUSH ×2 (11:21→12:44)
[2023-06-07] MEDS: ondansetron HCL 4 MG/2 ML VIAL IVPUSH ×2 (11:21→18:06)
[2023-06-07] MEDS: 0.9 % Sodium Chloride 1,000 ML 999 ML IVCONT ×2 (11:21→18:02)
[2023-06-07] MEDS: iohexoL 350 MG/ML 100 ML INFUS..BTL 85 ML IV (11:55)
--- NOTE | 2023-06-07 13:17 | P.CONGS_ITS ---
History of Present Illness Consult details Consult date: 06/07/23 Requesting physician: Jan Dyson Narrative: 48-year-old female patient with a known history of Crohn's disease presenting with complaints of a severe abdominal pain. The pain was initially episodic but is now become more constant, unrelenting, 10/10 in severity. She was recently admitted to the hospitalist service for similar symptoms and treated with antibiotics. A CT abdomen and pelvis was obtained the emergency department. The official reading is pending at the time of this dictation. CT does reveal dilated loops of small bowel air-fluid levels however there are multiple areas of thickened bowel involving multiple segments suggestive of active Crohn's disease. This includes areas of the proximal and distal ileum and sigmoid colon. She denies any previous bowel surgery. Review of Systems 2 Review of Systems: Yes Unobtainable due to mental condition PMFSH Past Medical History Medical History Crohn's disease Depression Social History Social History Household Members: Family Housing: House Do you presently have visiting nurse or other home services: No Alcohol intake: current Alcohol intake frequency: holidays/special occasions only Patient Tobacco Use Status: Current everyday Tobacco user Tobacco use type: Cigarette Cigarettes Per Day: 8 Second Hand Smoke Exposure: Yes Advance Directives: No service: No Meds Allergies Allergy/AdvReac Type Severity Reaction Status Date / Time No Known Allergies Allergy Verified 06/07/23 09:51 [No Known Allergies*] Active Medications: Current Medications Sodium Chloride (Ns) 1,000 mls @ 999 mls/hr IVCONT .Q1H1M ALONDRA Stop: 06/07/23 13:45 Home Medications Medication Instructions Recorded Confirmed Last Taken Type acetaminophen 500 mg tablet 500 mg PO Q6H PRN Pain 05/26/23 05/26/23 05/25/23 History cetirizine 10 mg tablet 10 mg PO DAILY 05/26/23 05/26/23 05/25/23 History dicyclomine 10 mg capsule 10 mg PO QID 05/26/23 05/26/23 05/25/23 History mesalamine 1.2 gram tablet,delayed 1.2 g PO QAM 05/26/23 05/26/23 05/25/23 History release (Lialda) multivitamin with minerals-folic 2 tab PO DAILY 05/26/23 05/26/23 05/25/23 History acid 200 mcg chewable tablet (Multivitamin Gummies) Physical Exam 2 Vital Signs: Vital Signs: Last Vital Signs Temp 97.6 F 06/07/23 09:49 Pulse 95 06/07/23 09:49 Resp 20 06/07/23 09:49 BP 123/74 06/07/23 09:49 Pulse Ox 99 06/07/23 09:49 O2 Del Method Room Air 06/07/23 09:49 BMI result Body Mass Index 26.6 Const: General: acute distress, ill appearing and tired appearing N utritional Appearance: well nourished Orientation/consciousness: patient oriented x3 Resp: Effort & Inspection: normal respiratory effort, no audible wheezes, no cough and no respiratory distress GI: Other: Diffusely tender without rebound, guarding or rigidity. Tympany to percussion. Skin: Other: Warm, dry, no rash Neuro: General: patient oriented x3 Extrem: Other: No cyanosis, clubbing or edema. Results Labs 06/07/23 10:39 06/07/23 10:39 Labs: Abnormal lab results 06/07/23 Range/Units 10:39 WBC 16.3 H (4.8-10.8) X10*3/uL Hct 36.6 L D (37.0-47.0) % Plt Count 460 H D (160-400) X10*3/uL MPV 8.7 L (9.4-12.3) fL Neut % (Auto) 84.5 H (45-73) % Lymph % (Auto) 13.3 L (20-40) % Ransom % (Auto) 1.2 L (2-11) % Abs Immat Gran (auto) 0.06 H (0.00-0.03) X10*3/uL Absolute Neuts (auto) 13.8 H (2.0-8.3) x10*3/uL Carbon Dioxide 19 L (22-29) mmol/L Random Glucose 132 H (60-115) mg/dL Short CBC 06/07/23 Range/Units 10:39 WBC 16.3 H (4.8-10.8) X10*3/uL Hgb 12.1 D (12.0-16.0) g/dl Hct 36.6 L D (37.0-47.0) % Plt Count 460 H D (160-400) X10*3/uL BMP 06/07/23 10:39 Sodium 135 Potassium 4.3 Chloride 106 Carbon Dioxide 19 L BUN 13 Creatinine 0.69 Calcium 9.6 D Liver Function 06/07/23 Range/Units 10:39 Total Bilirubin 0.4 (0.0-1.0) mg/dL Direct Bilirubin 0.1 (0.0-0.5) mg/dL AST 15 (5-31) U/L ALT 17 (0-31) U/L Alkaline Phosphatase 65 (39-117) U/L Albumin 3.8 (3.5-5.0) g/dL All other labs normal. Assessment and Plan (1) Crohn's disease: Qualifiers: Digestive disease complication type: with intestinal obstruction G astrointestinal tract location: small intestine Qualified Code(s): K50.012 - Crohn's disease of small intestine with intestinal obstruction Status: Acute Plan 48-year-old female patient with probable small-bowel obstruction secondary to Crohn's disease. Will await CT findings. Recommend hospitalist admission for steroid bolus. Will need GI consultation as well. No surgical intervention recommended at this time. Time Spent With Patient Time: Total time managing care of this patient today ____ minutes. Procedures Date of Service Date of Service: 06/07/23
--- NOTE | 2023-06-07 14:26 | P.HPHOSP_ITS ---
History of Present Illness Date of Service: 06/07/23 Attending physician on admission: Dione Sage Chief Complaint: Abdominal pain Pt is a 48-year-old female with a PMH significant for?Crohn's disease who presents to the ED with?severe epigastric abdominal pain and diarrhea for 3 days. Patient was admitted to the hospital 2 weeks prior on 05/26-05/28/2023 for similar symptoms and treated for small bowel obstruction secondary to acute Crohn's flare. Was sent home on p.o. Flagyl x5 days and steroids. Patient states that her abdominal pain returned on Monday. Pain has been constant and continually increasing, primarily located in epigastric region. Patient also has been experiencing difficulty breathing secondary to her abdominal pain. Had 6 episodes of foul-smelling diarrhea yesterday with some bloody discharge. Patient also notes blood on toilet paper with wiping. States it smells ?like something in her abdomen. No diarrhea today. Also reports increased urinary frequency of foul-smelling urine. Has been having nausea but no vomiting, just occasional spitting up saliva. Has not been eating or drinking much of anything the past 3 days. Patient presents today for after pain became intolerable this morning. Patient denies chest pain/pressure, palpitations pedal or no fever, chills. Of note, patient states she has stopped smoking and has called her GI for follow-up appointment, but has yet to see her provider. It appears that insurance has approved her for biologics though she has yet to fill any prescription. In the ED patient was afebrile with pulse of 95 R 20 normotensive at 123/74, in setting of 99% on RA. Labs were significant for leukocytosis of 16.3, otherwise unremarkable. H&H stable at 12 0.1/36.6. Electrolytes WNL. Renal function baseline. Hepatic function WNL. CT of abdomen and pelvis was similar to previous from 05/25/2023, which showed thick walled distal small bowel consistent with inflammatory bowel disease. Also showed persistent dilation mid small bowel that may be consistent with at least a partial obstruction. Also increasing fluid in the deep pelvis and mesenteric region with tiny focus of air, early abscess formation cannot be excluded. Pt was treated with Dilaudid, ondansetron, IVF. Pt will be admitted to the hospital for treatment further evaluation of acute Crohn's flare with likely partial small bowel obstruction. Review of Systems 2 Review of Systems: Severe epigastric abdominal pain Bloody, foul-smelling diarrhea Polyuria, foul-smelling urine Difficulty breathing deeply secondary to abdominal pain Nausea, no vomiting Denies chest pain/pressure, palpitations [facility] Medical History Crohn's disease Depression Social History Household Members: Family Housing: House Do you presently have visiting nurse or other home services: No Alcohol intake: current Alcohol intake frequency: holidays/special occasions only Patient Tobacco Use Status: Current everyday Tobacco user Tobacco use type: Cigarette Cigarettes Per Day: 8 Second Hand Smoke Exposure: Yes Advance Directives: No service: No Meds Allergies Allergy/AdvReac Type Severity Reaction Status Date / Time No Known Allergies Allergy Verified 06/07/23 09:51 [No Known Allergies*] Home Medications Medication Instructions Recorded Confirmed Last Taken Type acetaminophen 500 mg tablet 500 mg PO Q6H PRN Pain 05/26/23 06/07/23 06/07/23 History cetirizine 10 mg tablet 10 mg PO DAILY 05/26/23 06/07/23 05/25/23 History dicyclomine 10 mg capsule 10 mg PO QID 05/26/23 06/07/23 06/07/23 History mesalamine 1.2 gram tablet,delayed 1.2 g PO QAM 05/26/23 06/07/23 05/25/23 History release (Lialda) multivitamin with minerals-folic 2 tab PO DAILY 05/26/23 06/07/23 05/25/23 History acid 200 mcg chewable tablet (Multivitamin Gummies) fluticasone propionate 50 1 spray intranasal QAM PRN Allergy 06/07/23 06/07/23 Unknown History mcg/actuation nasal Symptoms spray,suspension ibuprofen 800 mg tablet 800 mg PO Q8H PRN pain 06/07/23 06/07/23 Unknown History prednisone 10 mg tablet 30 mg PO DAILY 06/07/23 06/07/23 06/07/23 History Physical Exam 2 Vital Signs and Narrative: Vital Signs: Last Vital Signs Temp 97.6 F 06/07/23 09:49 Pulse 95 06/07/23 09:49 Resp 20 06/07/23 09:49 BP 123/74 06/07/23 09:49 Pulse Ox 99 06/07/23 09:49 O2 Del Method Room Air 06/07/23 09:49 BMI result Body Mass Index 26.6 Constitutional: Alert, uncomfortable, in no acute distress. Mental Status: Oriented to person, place and time. Eyes: Pupils are equal, round, and reactive to light. Ear, Nose, and Throat: Oropharynx clear, mucous membranes moist. Ears and nose without deformities. Trachea midline. Respiratory: Clear to auscultation bilaterally. No wheezing, rales, or rhonchi. Cardiovascular: S1, S2 regular. No murmurs, rubs, or gallops. Gastrointestinal: Abdomen soft, non-distended, very tender. +BS. Neurologic: Cranial nerves II-XII are grossly intact bilaterally. No focal neurological deficits. Moves all extremities spontaneously. Skin: No rashes or lesions noted. Musculoskeletal: No cyanosis or clubbing. Extremities: No edema. Psychiatric: Normal mood and affect. Results Labs 06/07/23 10:39 06/07/23 10:39 Labs: Laboratory Results - last 24 hr 06/07/23 10:39 MCV 84.7 MCH 28.0 MCHC 33.1 RDW 15.7 Plt Count 460 H D MPV 8.7 L Immature Gran % (Auto) 0.4 Neut % (Auto) 84.5 H Lymph % (Auto) 13.3 L [place] % (Auto) 1.2 L Eos % (Auto) 0.4 Baso % (Auto) 0.2 Lymph # (Auto) 2.2 [place] # (Auto) 0.2 Eos # (Auto) 0.1 Baso # (Auto) 0.0 Abs Immat Gran (auto) 0.06 H Absolute Neuts (auto) 13.8 H Absolute Nucleated RBC 0.000 Nucleated RBC % (auto) 0.0 Smear Tech's Comments VERIFIED Anion Gap 14 Estim Creat Clear Calc 96.0 Estimated GFR > 60 Random Glucose 132 H Calcium 9.6 D Total Bilirubin 0.4 Direct Bilirubin 0.1 AST 15 ALT 17 Alkaline Phosphatase 65 Total Protein 6.9 Albumin 3.8 Lipase 12 Imaging Radiologist's Impressions: Impressions Abdomen/Pelvis CT 06/07/23 11:56 IMPRESSION: Overall exam is similar to previous. Thick-walled distal small bowel consistent with inflammatory bowel disease given the patient's history and there is also some moderate length thickening of mucosa in some proximal small bowel which would be consistent with disease. There is persistent dilatation of mid small bowel. This may be consistent with at least a least partial obstruction. As described there is some increasing fluid here both in the deep pelvis and mesenteric region. Tiny focus of air is identified in the mesenteric region in the right lower quadrant which could possibly be in an adjacent bowel loop. Early abscess formation cannot be excluded. Attention to follow-up Fleischner guidelines were followed. Assessment and Plan (1) SBO (small bowel obstruction): Status: Acute (2) Crohn's disease: Status: Acute Plan Pt is a 48-year-old female with a PMH significant for?Crohn's disease who presents to the ED with?severe epigastric abdominal pain and diarrhea for 3 days. Patient was admitted to the hospital 2 weeks prior on 05/26-05/28/2023 for similar symptoms and treated for small bowel obstruction secondary to acute Crohn's flare. Was sent home on p.o. Flagyl x5 days and steroids. Crohn's disease flare with partial SBO secondary to stricture CT with evidence of inflammation, at least partial SBO, and possible early abscess formation, similar to previous on 05/25/2023 Solu-Medrol 20 mg q8 x48 hours, then transition to p.o. prednisone 40 mg with slow taper Analgesics for pain management: Dilaudid 1mg q4h Will hold off on administering antibiotics for now Check C diff, GI panel NPO for bowel rest, advance diet as tolerated NGT deferred since no active vomiting Continue Bentcarlos alberto weineralamine Needs to follow up with GI outpatient for biologics General surgery consult Bloody diarrhea Pt with 6 episodes of bloody diarrhea yesterday, none today No sign of active bleeding, pt's H&H 12.1/36.6 Follow CBC Leukocytosis Secondary to steroid use No sign of acute infection Will check C diff, GI panel Full Code Attending:?Dr. Sage DVT Prophylaxis: Pneumatic boots d/t reported bloody diarrhea Pt will require a hospitalization of at least two nights for treatment of?acute Crohn's disease flare with partial SBO secondary to stricture. Patient will be kept NPO and receive IV steroids, fluids, and analgesics and will require specialist consultation. Time Spent With Patient Time: Total time managing care of this patient today ____ minutes. Quality Stroke Does the patient have a stroke diagnosis?: No VTE Prior VTE?: No VTE Risk Level:: Medical - moderate - high VTE Device Contraindication: N/A - Device Ordered VTE Drug Contraindication: Treatment Not Indicated
[2023-06-07] MEDS: methylPREDNISolone Sod Succ 125 MG/2 ML VIAL IVPUSH (16:41)
--- NOTE | 2023-06-07 17:47 | PC.NURSE ---
report given to med.colon and rectal surgeon by charge
[2023-06-07 17:50] VITALS: BP 101/50; PULSE 65; RESP 18; TEMP 36.6; O2SAT 98
[2023-06-07] MEDS: 0.9 % Sodium Chloride Flush 3 ML SYRINGE IVFLUSH (18:01)
[2023-06-07] MEDS: HYDROmorphone HCl 1 MG/ML SYRINGE IVPUSH ×2 (18:01→22:28)
[2023-06-07] MEDS: Dicyclomine HCl 10 MG CAPSULE PO ×2 (18:01→21:00)
[2023-06-07] MEDS: Lactated Ringers 1,000 ML 100 ML IVCONT (18:59)
[2023-06-07] MEDS: methylPREDNISolone Sod Succ 40 MG/ML VIAL 20 MG IVPUSH (21:00)
[2023-06-07 22:28] VITALS: BP 110/63; PULSE 62
[2023-06-07 23:59] VITALS: BP 124/58; PULSE 56; RESP 16; TEMP 36; O2SAT 97
[2023-06-08] MEDS: Lactated Ringers 1,000 ML 100 ML IVCONT ×3 (05:19→23:58)
[2023-06-08] MEDS: methylPREDNISolone Sod Succ 40 MG/ML VIAL 20 MG IVPUSH ×3 (05:19→21:20)
[2023-06-08 06:41] LABS: Hematocrit 33.4 % (37.0-47.0); Hemoglobin 10.8 g/dl (12.0-16.0); Mean Corpuscular HGB Conc 32.3 g/dl (31.0-35.0); Mean Corpuscular Hemoglobin 28.1 pg (27.0-33.0); Mean Corpuscular Volume 86.8 fL (80.0-98.0); Mean Platelet Volume 9.3 fL (9.4-12.3); Platelet Count 420 X10*3/uL (160-400); Red Blood Count 3.85 X10*6/uL (4.20-5.50); Red Cell Distribution Width 15.2 % (11.0-16.0); White Blood Count 9.6 X10*3/uL (4.8-10.8)
[2023-06-08 06:46] LABS: Anion Gap 14 (12-20); Blood Urea Nitrogen 8 mg/dL (9-16); Calcium 9.4 mg/dL (8.4-10.2); Carbon Dioxide 23 mmol/L (22-29); Chloride 102 mmol/L (96-108); Creatinine Clr Calc Pharmacy 120.4; Estimated Glomerular Filt Rate > 60; Glucose Random 107 mg/dL (60-115); Potassium 4.3 mmol/L (3.3-5.1); Sodium 135 mmol/L (135-145)
[2023-06-08] MEDS: Multivitamin TABLET 1 TAB PO (07:31)
[2023-06-08] MEDS: Dicyclomine HCl 10 MG CAPSULE PO (07:31)
[2023-06-08] MEDS: Loratadine 10 MG TABLET PO (07:31)
[2023-06-08 07:44] VITALS: BP 116/68; PULSE 69; RESP 16; TEMP 36.2; O2SAT 96
--- NOTE | 2023-06-08 11:38 | MHC.CM.PN ---
Patient admitted with Chrons flare within the last month is now admitted with a Chrons flare and an SBO. She is independent with all functional mobility. She works 2 jobs. DP home self care. Patient will arrange for a family member to provide transport home.PCP Dr Nick Lopez. No HCP on file.
--- NOTE | 2023-06-08 13:18 | HO.PM.IMPN ---
Subjective Subjective Date of Service: 06/08/23 Interval History: Feeling better this morning, denies further bout of diarrhea, abdominal pain has improved complaining of mild nausea, no vomiting, no fevers no chills , denies dysuria, no urgency, no frequency complaining of urine with foul odor. Stool not collected for C diff Review of Systems All other system reviewed and negative Physical Exam Vital Signs: Vital Signs: Last Vital Signs Temp 97.1 F 06/08/23 07:44 Pulse 69 06/08/23 07:44 Resp 16 06/08/23 07:44 BP 116/68 06/08/23 07:44 Pulse Ox 96 06/08/23 07:44 O2 Del Method Room Air 06/08/23 07:44 BMI result Body Mass Index 26.6 Const: Other: General awake alert x3, in no acute distress. Neck supple no JVD. CVS regular rate rhythm, Respiratory lungs clear to auscultation, no respiratory distress, no wheeze, no rhonchi. Gastrointestinal abdomen soft, bowel sounds audible, no abdominal tenderness , no guarding , no rigidity. Extremities no , edema. Neuro nonfocal , Skin no rash Psych appropriate affect Objective Data Active Medications Acetaminophen (Acetaminophen 325 Mg Tablet) 650 mg PO Q6H PRN PRN Reason: Pain, Mild (Pain Scale 1-3) Dicyclomine HCl (Dicyclomine Hcl 10 Mg Capsule) 10 mg PO QID [facility] Last Admin: 06/08/23 13:17 Dose: 10 mg Documented By: BECKI Fluticasone Propionate (Fluticasone Propionate Nasal 16 Gm [place]) 1 spray NOSTRIL-B DAILY PRN PRN Reason: Allergy Symptoms Hydromorphone HCl (Hydromorphone Hcl 1 Mg/Ml Syringe) 0.5 mg IVPUSH Q4H PRN; Protocol PRN Reason: Pain, Severe (Pain Scale 7-10) Last Admin: 06/08/23 13:17 Dose: 0.5 mg Documented By: BECKI Lactated Ringer's (Lr) 1,000 mls @ 100 mls/hr IVCONT .Q10H [facility] Last Admin: 06/08/23 05:19 Dose: 100 mls/hr Documented By: CASTILLO Loratadine (Loratadine 10 Mg Tablet) 10 mg PO DAILY [facility] Last Admin: 06/08/23 07:31 Dose: 10 mg Documented By: BECKI Methylprednisolone Sodium Succinate (Methylprednisolone Sod Succ 40 Mg/Ml Vial) 20 mg IVPUSH Q8H [facility] Last Admin: 06/08/23 13:17 Dose: 20 mg Documented By: BECKI Multivitamins/Vitamin C (Multivitamin Tablet) 1 tab PO DAILY [facility] Last Admin: 06/08/23 07:31 Dose: 1 tab Documented By: BECKI Pt Own (Mesalamine [ Lialda] 1.2 Gram Tablet,Delayed Release (Dr/Ec)) 1.2 gm PO DAILY [facility] Last Admin: 06/08/23 07:31 Dose: 1.2 gm Documented By: BECKI Ondansetron HCl (Ondansetron Hcl 4 Mg/2 Ml Vial) 4 mg IVPUSH Q8H PRN PRN Reason: Nausea and Vomiting Last Admin: 06/07/23 18:06 Dose: 4 mg Documented By: MICHELLE Sodium Chloride (0.9 % Sodium Chloride Flush 3 Ml Syringe) 3 ml IVFLUSH QSHIFT [facility] Last Admin: 06/08/23 06:56 Dose: Not Given Documented By: BECKI Non-Admin Reason: IV Running Labs 06/08/23 06:05 06/08/23 06:05 Labs: Laboratory Results - last 24 hr 06/08/23 06:05 MCV 86.8 MCH 28.1 MCHC 32.3 RDW 15.2 Plt Count 420 H MPV 9.3 L Absolute Nucleated RBC 0.000 Nucleated RBC % (auto) 0.0 Anion Gap 14 Estim Creat Clear Calc 120.4 Estimated GFR > 60 Random Glucose 107 Calcium 9.4 Assessment and Plan (1) Crohn's disease: Status: Acute Plan 48-year-old female with pertinent history of Crohn's disease, mood disorder who presents to the emergency department for evaluation of abdominal pain and vomiting. acute flare of Crohn's with small-bowel obstruction WBC normalized, no fevers no diarrhea abdominal pain improved Seen by General surgery no surgical intervention at this time, since no vomiting hold off on NG tube. H&H dropped but close to baseline/stable likely dilutional since no episodes of bloody stools. C diff and collected since no further episodes of diarrhea Will continue IV Solu-Medrol 20 mg b.i.d. times 48 hours then prednisone 40 mg daily with slow taper /continue mesalamine and Bentyl/Dilaudid 0.5 mg q.4 hours for severe pain Placed on full liquid diet advance as tolerated /continue IV fluids. Check UA due to foul odor Tobacco use disorder counseling done. DVT prophylaxis: Mechanical On inpatient hospitalization: acute Crohn's flare requiring IV steroids Time Spent With Patient Time: Total time managing care of this patient today ____ minutes. Quality Stroke Does the patient have a stroke diagnosis?: No VTE Prior VTE?: No VTE Risk Level:: Medical - moderate - high VTE Device Contraindication: N/A - Device Ordered VTE Drug Contraindication: Treatment Not Indicated
--- NOTE | 2023-06-08 13:32 | PM.PNGS ---
Subjective Subjective Date of Service: 06/08/23 Interval history: Hospital day 2, Crohn's flare. Patient feels improved today with decreased abdominal pain. Physical Exam Vital Signs: Vital Signs: Last Vital Signs Temp 97.1 F 06/08/23 07:44 Pulse 69 06/08/23 07:44 Resp 16 06/08/23 07:44 BP 116/68 06/08/23 07:44 Pulse Ox 96 06/08/23 07:44 O2 Del Method Room Air 06/08/23 07:44 BMI result Body Mass Index 26.6 Const: General: comfortable and no acute distress Nutritional Appearance: well nourished Orientation/consciousness: patient oriented x3 Limitations: no limitations Resp: Effort & Inspection: normal respiratory effort GI: Other: Continue tenderness to deep palpation over much improved from prior examination. No rebound, guarding or rigidity. Neuro: General: patient oriented x3 Extrem: Other: No edema Objective Data Active Medications Acetaminophen (Acetaminophen 325 Mg Tablet) 650 mg PO Q6H PRN PRN Reason: Pain, Mild (Pain Scale 1-3) Dicyclomine HCl (Dicyclomine Hcl 10 Mg Capsule) 10 mg PO QID [facility] Last Admin: 06/08/23 13:17 Dose: 10 mg Documented By: BECKI Fluticasone Propionate (Fluticasone Propionate Nasal 16 Gm [place]) 1 spray NOSTRIL-B DAILY PRN PRN Reason: Allergy Symptoms Hydromorphone HCl (Hydromorphone Hcl 1 Mg/Ml Syringe) 0.5 mg IVPUSH Q4H PRN; Protocol PRN Reason: Pain, Severe (Pain Scale 7-10) Last Admin: 06/08/23 13:17 Dose: 0.5 mg Documented By: BECKI Lactated Ringer's (Lr) 1,000 mls @ 100 mls/hr IVCONT .Q10H [facility] Last Admin: 06/08/23 05:19 Dose: 100 mls/hr Documented By: CASTILLO Loratadine (Loratadine 10 Mg Tablet) 10 mg PO DAILY [facility] Last Admin: 06/08/23 07:31 Dose: 10 mg Documented By: BECKI Methylprednisolone Sodium Succinate (Methylprednisolone Sod Succ 40 Mg/Ml Vial) 20 mg IVPUSH Q8H [facility] Last Admin: 06/08/23 13:17 Dose: 20 mg Documented By: BECKI Multivitamins/Vitamin C (Multivitamin Tablet) 1 tab PO DAILY [facility] Last Admin: 06/08/23 07:31 Dose: 1 tab Documented By: BECKI Pt Own (Mesalamine [ Lialda] 1.2 Gram Tablet,Delayed Release (Dr/Ec)) 1.2 gm PO DAILY [facility] Last Admin: 06/08/23 07:31 Dose: 1.2 gm Documented By: BECKI Ondansetron HCl (Ondansetron Hcl 4 Mg/2 Ml Vial) 4 mg IVPUSH Q8H PRN PRN Reason: Nausea and Vomiting Last Admin: 06/07/23 18:06 Dose: 4 mg Documented By: MICHELLE Sodium Chloride (0.9 % Sodium Chloride Flush 3 Ml Syringe) 3 ml IVFLUSH QSHIFT [facility] Last Admin: 06/08/23 06:56 Dose: Not Given Documented By: BECKI Non-Admin Reason: IV Running Labs 06/08/23 06:05 06/08/23 06:05 Labs: Laboratory Results - last 24 hr 06/08/23 06/08/23 06/08/23 06:05 13:10 13:10 MCV 86.8 MCH 28.1 MCHC 32.3 RDW 15.2 Plt Count 420 H MPV 9.3 L Absolute Nucleated RBC 0.000 Nucleated RBC % (auto) 0.0 Anion Gap 14 Estim Creat Clear Calc 120.4 Estimated GFR > 60 Random Glucose 107 Calcium 9.4 Urine Color Cancelled Yellow Urine Appearance Cancelled Urine pH Ur Specific [place] Urine Protein Urine Glucose (UA) Urine Ketones Urine Blood Urine Nitrite Ur Leukocyte Esterase 06/08/23 06/08/23 06/08/23 13:10 13:10 13:10 MCV MCH MCHC RDW Plt Count MPV Absolute Nucleated RBC Nucleated RBC % (auto) Anion Gap Estim Creat Clear Calc Estimated GFR Random Glucose Calcium Urine Color Urine Appearance Clear Urine pH Cancelled 7.5 Ur Specific [place] Cancelled <= 1.005 Urine Protein Cancelled Urine Glucose (UA) Urine Ketones Urine Blood Urine Nitrite Ur Leukocyte Esterase 06/08/23 06/08/23 06/08/23 13:10 13:10 13:10 MCV MCH MCHC RDW Plt Count MPV Absolute Nucleated RBC Nucleated RBC % (auto) Anion Gap Estim Creat Clear Calc Estimated GFR Random Glucose Calcium Urine Color Urine Appearance Urine pH Ur Specific [place] Urine Protein Negative Urine Glucose (UA) Cancelled Negative Urine Ketones Cancelled Negative Urine Blood Cancelled Urine Nitrite Ur Leukocyte Esterase 06/08/23 06/08/23 06/08/23 13:10 13:10 13:10 MCV MCH MCHC RDW Plt Count MPV Absolute Nucleated RBC Nucleated RBC % (auto) Anion Gap Estim Creat Clear Calc Estimated GFR Random Glucose Calcium Urine Color Urine Appearance Urine pH Ur Specific [place] Urine Protein Urine Glucose (UA) Urine Ketones Urine Blood Negative Urine Nitrite Cancelled Negative Ur Leukocyte Esterase Cancelled Negative Procedures Date of Service Date of Service: 06/08/23 Progress Note: A&P Assessment and plan (1) Crohn's disease: Status: Acute Plan 48-year-old female presenting with Crohn's flare with secondary small-bowel obstruction. Patient is much improved today with steroid bolus. Will continue to monitor. No surgical intervention anticipated at this time. Time Spent With Patient Time: Total time managing care of this patient today ____ minutes. Quality Stroke Does the patient have a stroke diagnosis?: No VTE Prior VTE?: No VTE Risk Level:: Medical - moderate - high VTE Device Contraindication: N/A - Device Ordered VTE Drug Contraindication: Treatment Not Indicated
--- NOTE | 2023-06-08 13:33 | MHC.CLN ---
RE: CONSULT PT WITH 6% SIGNIFICANT WT LOSS X 30DAY R/T ACUTE ILLNESS RECOMMEND ADDING ENSURE MAX BID TO INCREASE PO MONITOR PO INTAKE CLOSELY
[2023-06-08 15:28] VITALS: BP 116/62; PULSE 62; RESP 20; TEMP 36.4; O2SAT 97
[2023-06-08 20:05] VITALS: BP 107/66; PULSE 79; RESP 20; TEMP 36; O2SAT 96
[2023-06-09] VITALS: BP 119/60; PULSE 57; RESP 18; TEMP 36.1; O2SAT 95
[2023-06-09 07:34] VITALS: BP 118/59; PULSE 86; RESP 16; TEMP 36.3; O2SAT 96
--- NOTE | 2023-06-09 08:02 | PM.PNGS ---
Subjective Subjective Date of Service: 06/09/23 Interval history: Overall patient is much improved, pain 4/10 this morning without pain medications. She tolerated liquids yesterday without increased pain or nausea. Bowels have slowed down as well. Physical Exam Vital Signs: Vital Signs: Last Vital Signs Temp 97.3 F 06/09/23 07:34 Pulse 86 06/09/23 07:34 Resp 16 06/09/23 07:34 BP 118/59 L 06/09/23 07:34 Pulse Ox 96 06/09/23 07:34 O2 Del Method Room Air 06/09/23 07:34 BMI result Body Mass Index 26.6 Const: General: comfortable and no acute distress Nutritional Appearance: well nourished Orientation/consciousness: patient oriented x3 Limitations: no limitations Resp: Effort & Inspection: normal respiratory effort GI: Palpation (GI): Soft to palpation, nontender, no guarding and not rigid Percussion: Yes normal to percussion Skin: General skin exam: no rashes or lesions noted Neuro: General: patient oriented x3 Objective Data Active Medications Acetaminophen (Acetaminophen 325 Mg Tablet) 650 mg PO Q6H PRN PRN Reason: Pain, Mild (Pain Scale 1-3) Dicyclomine HCl (Dicyclomine Hcl 10 Mg Capsule) 10 mg PO QID [facility] Last Admin: 06/08/23 21:20 Dose: 10 mg Documented By: ELISHA Fluticasone Propionate (Fluticasone Propionate Nasal 16 Gm [place]) 1 spray NOSTRIL-B DAILY PRN PRN Reason: Allergy Symptoms Hydromorphone HCl (Hydromorphone Hcl 1 Mg/Ml Syringe) 0.5 mg IVPUSH Q4H PRN; Protocol PRN Reason: Pain, Severe (Pain Scale 7-10) Last Admin: 06/08/23 13:17 Dose: 0.5 mg Documented By: BECKI Lactated Ringer's (Lr) 1,000 mls @ 100 mls/hr IVCONT .Q10H [facility] Last Admin: 06/08/23 23:58 Dose: 100 mls/hr Documented By: ELISHA Loratadine (Loratadine 10 Mg Tablet) 10 mg PO DAILY [facility] Last Admin: 06/08/23 07:31 Dose: 10 mg Documented By: BECKI Methylprednisolone Sodium Succinate (Methylprednisolone Sod Succ 40 Mg/Ml Vial) 20 mg IVPUSH Q8H [facility] Last Admin: 06/09/23 06:00 Dose: 20 mg Documented By: ELISHA Multivitamins/Vitamin C (Multivitamin Tablet) 1 tab PO DAILY [facility] Last Admin: 06/08/23 07:31 Dose: 1 tab Documented By: BECKI Pt Own (Mesalamine [ Lialda] 1.2 Gram Tablet,Delayed Release (Dr/Ec)) 1.2 gm PO DAILY [facility] Last Admin: 06/08/23 07:31 Dose: 1.2 gm Documented By: BECKI Ondansetron HCl (Ondansetron Hcl 4 Mg/2 Ml Vial) 4 mg IVPUSH Q8H PRN PRN Reason: Nausea and Vomiting Last Admin: 06/07/23 18:06 Dose: 4 mg Documented By: MICHELLE Sodium Chloride (0.9 % Sodium Chloride Flush 3 Ml Syringe) 3 ml IVFLUSH QSHIFT [facility] Last Admin: 06/09/23 07:01 Dose: Not Given Documented By: BECKI Non-Admin Reason: IV Running Labs 06/08/23 06:05 06/08/23 06:05 Labs: Laboratory Results - last 24 hr 06/08/23 06/08/23 06/08/23 13:10 13:10 13:10 Urine Color Cancelled Yellow Urine Appearance Cancelled Clear Urine pH Cancelled Ur Specific [place] Urine Protein Urine Glucose (UA) Urine Ketones Urine Blood Urine Nitrite Ur Leukocyte Esterase 06/08/23 06/08/23 06/08/23 13:10 13:10 13:10 Urine Color Urine Appearance Urine pH 7.5 Ur Specific [place] Cancelled <= 1.005 Urine Protein Cancelled Negative Urine Glucose (UA) Cancelled Urine Ketones Urine Blood Urine Nitrite Ur Leukocyte Esterase 06/08/23 06/08/23 06/08/23 13:10 13:10 13:10 Urine Color Urine Appearance Urine pH Ur Specific [place] Urine Protein Urine Glucose (UA) Negative Urine Ketones Cancelled Negative Urine Blood Cancelled Negative Urine Nitrite Cancelled Ur Leukocyte Esterase 06/08/23 06/08/23 13:10 13:10 Urine Color Urine Appearance Urine pH Ur Specific [place] Urine Protein Urine Glucose (UA) Urine Ketones Urine Blood Urine Nitrite Negative Ur Leukocyte Esterase Cancelled Negative Procedures Date of Service Date of Service: 06/09/23 Progress Note: A&P Assessment and plan (1) SBO (small bowel obstruction): Status: Acute (2) Crohn's disease: Status: Acute Plan Patient with active Crohn's disease responding to steroid bolus. Abdomen is much improved today and she is tolerating liquid diet. Advance diet as tolerated. Patient should follow-up with Gastroenterology upon discharge (Jamal Flowers PA-C) Time Spent With Patient Time: Total time managing care of this patient today ____ minutes. Quality Stroke Does the patient have a stroke diagnosis?: No VTE Prior VTE?: No VTE Risk Level:: Medical - moderate - high VTE Device Contraindication: N/A - Device Ordered VTE Drug Contraindication: Treatment Not Indicated
--- NOTE | 2023-06-09 12:30 | MHC.CM.PN ---
Patient is discharged to home today self care. She has arranged for a family member to provide transportation home.
--- NOTE | 2023-06-09 13:36 | PM.DS ---
DS: Providers Provider Date of Service: 06/09/23 Date of admission: 06/07/23 15:12 Primary care physician: Unknown Physician Consults: 06/07/23 15:21 Consult to General Surgery Routine Consulting Provider[place] [facility] [place] [facility] Reason for consultation: Crohn's flare w/ likely partial SBO DS: Diagnosis Discharge Diagnosis (1) SBO (small bowel obstruction): Status: Acute (2) Crohn's disease: Status: Acute DS: Summary Hospital Course Hospital Course: History of presenting illness: Date of Service: 06/07/23 Attending physician on admission: Dione Sage Chief Complaint: Abdominal pain Pt is a 48-year-old female with a PMH significant for?Crohn's disease who presents to the ED with?severe epigastric abdominal pain and diarrhea for 3 days. Patient was admitted to the hospital 2 weeks prior on 05/26-05/28/2023 for similar symptoms and treated for small bowel obstruction secondary to acute Crohn's flare. Was sent home on p.o. Flagyl x5 days and steroids. Patient states that her abdominal pain returned on Monday. Pain has been constant and continually increasing, primarily located in epigastric region. Patient also has been experiencing difficulty breathing secondary to her abdominal pain. Had 6 episodes of foul-smelling diarrhea yesterday with some bloody discharge. Patient also notes blood on toilet paper with wiping. States it smells ?like something in her abdomen. No diarrhea today. Also reports increased urinary frequency of foul-smelling urine. Has been having nausea but no vomiting, just occasional spitting up saliva. Has not been eating or drinking much of anything the past 3 days. Patient presents today for after pain became intolerable this morning. Patient denies chest pain/pressure, palpitations pedal or no fever, chills. Of note, patient states she has stopped smoking and has called her GI for follow-up appointment, but has yet to see her provider. It appears that insurance has approved her for biologics though she has yet to fill any prescription. In the ED patient was afebrile with pulse of 95 R 20 normotensive at 123/74, in setting of 99% on RA. Labs were significant for leukocytosis of 16.3, otherwise unremarkable. H&H stable at 12 0.1/36.6. Electrolytes WNL. Renal function baseline. Hepatic function WNL. CT of abdomen and pelvis was similar to previous from 05/25/2023, which showed thick walled distal small bowel consistent with inflammatory bowel disease. Also showed persistent dilation mid small bowel that may be consistent with at least a partial obstruction. Also increasing fluid in the deep pelvis and mesenteric region with tiny focus of air, early abscess formation cannot be excluded. Pt was treated with Dilaudid, ondansetron, IVF. Pt will be admitted to the hospital for treatment further evaluation of acute Crohn's flare with likely partial small bowel obstruction. Hospital course: 48-year-old female with pertinent history of Crohn's disease, mood disorder who presents to the emergency department for evaluation of abdominal pain, diarrhea with foul odor and blood and vomiting admitted to medical floor with a diagnosis of. Acute flare of Crohn's with small-bowel obstruction, admitted to medical floor placed on IV fluids, NPO IV Solu Medrol 20 mg twice daily, during course of hospitalization patient had no further episodes of vomiting, no diarrhea hematocrit remains stable patient evaluated by General surgery, no surgical intervention was recommended, diet was gradually advanced ,that she is tolerating well, she received 2 days of IV Solu Medrol will transition to by mouth prednisone with slow taper recommend outpatient follow-up with primary construction quality control manager, continue mesalamine and dicyclomine. UA unremarkable, WBC normalized. Tobacco use disorder counseling done. Time Spent with Patient Time attestation: Total time managing care of this patient today ____ minutes. Discharge coordination time: Greater than 30 minutes Quality: Safe Use of Opioids Does Pt have an Active Cancer Diagnosis on the Problem List?: No Quality: Stroke Does the patient have a stroke diagnosis?: No Physical Exam Vital Signs: Vital Signs: Last Vital Signs Temp 97.3 F 06/09/23 07:34 Pulse 86 06/09/23 07:34 Resp 16 06/09/23 07:34 BP 118/59 L 06/09/23 07:34 Pulse Ox 96 06/09/23 07:34 O2 Del Method Room Air 06/09/23 07:34 BMI result Body Mass Index 26.6 Const: Other: General awake alert x3, in no acute distress. Neck supple no JVD. CVS regular rate rhythm, Respiratory lungs clear to auscultation, no respiratory distress, no wheeze, no rhonchi. Gastrointestinal abdomen soft, bowel sounds audible, no abdominal tenderness , no guarding , no rigidity. Extremities no , edema. Neuro nonfocal , Skin no rash Psych appropriate affect Discharge Plan Discharge Anticipated Discharge Date/Time: 06/09/23 13:21 Patient Disposition: Home, Self-Care Discharge Diagnosis: Acute flare of Crohn's disease Partial small-bowel obstruction Referrals: Physician,Unknown J [Primary Care Provider] - 1 Week Discharge Medications: New prednisone 10 mg tablet 10 mg PO DAILY Qty: 60 0RF Rx Instructions: Take prednisone 10 mg (3 tablets 30mg )for 5 days than take prednisone 20 mg (2x 10mg tablets) tablets daily for 10 days further taper as per Gastroenterology Continued cetirizine 10 mg tablet 10 mg PO DAILY dicyclomine 10 mg capsule 10 mg PO QID mesalamine [Lialda] 1.2 gram tablet,delayed release (DR/EC) 1.2 g PO QAM acetaminophen 500 mg Tablet 500 mg PO Q6H PRN (Reason: Pain) Multivitamin Gummies 200 mcg Tablet,Chewable 2 tab PO DAILY ibuprofen 800 mg tablet 800 mg PO Q8H PRN (Reason: pain) fluticasone propionate 50 mcg/actuation spray,suspension 1 spray intranasal QAM PRN (Reason: Allergy Symptoms) Discontinued prednisone 10 mg tablet 30 mg PO DAILY Patient Comments: FINISH ON 06/10/23 Rx Instructions: see taper instructions: Prednisone 40 mg for 6 days then prednisone 30 mg for 7 days, Discharge Orders: Discharge Order (Routine); Ordered 06/09/23 Ordered By: Dione Sage Diet: bland diet Activity on Discharge: As tolerated Stand Alone Forms: Patient Portal Discharge page Care Plan Goals: Continue and finish steroid taper as before, and then take prednisone 30 mg daily for 5 more days and 20 mg daily for 10 more days further deeper as per your primary construction quality control manager Return to ED if noted to have recurrent abdominal pain nausea, bloody stools or fever. Health Concerns: Recurrent Crohn's flare with partial small-bowel obstruction continue bland diet take prednisone as directed and follow-up with Gastroenterology Plan of Treatment: Follow-up with your primary construction quality control manager and [facility] which call for appointment in 1-2 weeks Assessment: As above
== END 2023-06-09 14:10 | disposition home or self-care (01) | DRG 245 ==
LOC: HO.ED 14:00 → HO.EDOVER 15:23 → HO.S3 16:01
PROVIDERS: Admitting Provider Student in an Organized Health Care Education/Training Program; Emergency Provider Emergency Medicine; PCP Internal Medicine; Visit Provider Hospitalist
DX: K50.012 Crohn's disease of small intestine with intestinal obstruction (principal); Z87.891 Personal history of nicotine dependence; Z79.899 Other long term (current) drug therapy
CPT/HCPCS: 36415; 74177; 80048; 80076; 81001; 81003; 82306; 82728; 83605; 83690; 83735; 84484; 84702; 85025; 85027; 85652; 86140; 86481; 86704; 86706; 86708; 86803; 87340; 93971; 99285; J1170; J1650; J2270; J2405; J2550; J2920; J2930; Q9967

== ENCOUNTER → 2023-06-07 11:18 | Outpatient (BNV) | payer OTHER, SELFPAY | PROVIDERS: Emergency Provider Emergency Medicine; Visit Provider Surgery | DX: K56.609 Unspecified intestinal obstruction, unspecified as to partial versus complete obstruction (principal); K50.90 Crohn's disease, unspecified, without complications | CPT/HCPCS: 99222; 99232 ==

== ENCOUNTER → 2023-06-07 15:12 | Outpatient (BNV) | payer OTHER, SELFPAY | PROVIDERS: Admitting Provider Student in an Organized Health Care Education/Training Program; Emergency Provider Emergency Medicine; Visit Provider Student in an Organized Health Care Education/Training Program | DX: K56.609 Unspecified intestinal obstruction, unspecified as to partial versus complete obstruction (principal); K50.90 Crohn's disease, unspecified, without complications | CPT/HCPCS: 99223; 99233; 99239 ==

== ENCOUNTER 2023-06-27 10:20 | Inpatient (IN) | payer OTHER, SELFPAY ==
[2023-06-27] VITALS (8 sets, daily range): BP systolic 95–112; BP diastolic 46–67; PULSE 76–88; RESP 12–18; TEMP 36.3–36.8; O2SAT 94–100; BMI 26.1; BMI 25.8
--- NOTE | ~2023-06-27 | US_ITS ---
EXAMINATION: US VENOUS ULTRASOUND WITH DOPPLER LOWER EXTREMITY, LEFT CLINICAL INFORMATION: Calf pain COMPARISON: None available. TECHNIQUE: Ultrasound of the deep veins is performed from the hip to the calf with compression sonography and color and pulse Doppler assessment. Spectral analysis with color-flow imaging is performed. FINDINGS: There is normal venous compression and respiratory variation and augmented flow. The visualized common femoral vein, superficial femoral vein, profunda femoral vein, popliteal vein, and the trifurcation region shows no evidence of deep venous thrombosis. US/US venous duplex LE LT IMPRESSION: No DVT demonstrated in the left lower extremity.
--- NOTE | ~2023-06-27 | CT_ITS ---
EXAMINATION: CT ABDOMEN AND PELVIS WITH CONTRAST CLINICAL INFORMATION: Worsening abdominal pain. History of Crohn's disease. COMPARISON: None available. TECHNIQUE: Multidetector volumetric images were obtained from the superior aspect of the liver through the pubic symphysis following administration 85 mL of Omnipaque 350 intravenous contrast. Sagittal and coronal reformatted images were obtained on the technologist's workstation. Oral contrast: No This CT examination was performed using dose optimization techniques as appropriate, variously including the following: *Automated exposure control *Adjustment of mA and/or kV according to patient size (this includes techniques or standardized protocols for targeted exams where dose is matched to indication/reason for exam; i.e. extremities or head) *Use of iterative reconstruction technique DLP: 418 mGy-cm FINDINGS: LUNG BASES: The visualized lung bases are unremarkable. LIVER, GALLBLADDER, AND BILIARY TREE: The liver is normal in size, shape, and attenuation. No focal hepatic lesion or biliary ductal dilatation is present. There are multiple dependent gallstones without wall thickening. No pericholecystic fluid collection seen. PANCREAS: Unremarkable. SPLEEN: Unremarkable. ADRENAL GLANDS: Unremarkable. KIDNEYS AND URETERS: The kidneys are normal in size, shape, and attenuation. No hydronephrosis, hydroureter, or calculi seen. No perinephric stranding. BLADDER: Unremarkable. GASTROINTESTINAL TRACT: There are multiple dilated proximal and mid small bowel segments with air-fluid level. There is a diffuse mural thickening involving the terminal ileum and a long segment of distal ileum likely secondary to inflammatory bowel disease. There is best visualized on axial image 64/3 and 50/3. Minimal fat stranding is seen in the right lower quadrant. Appendix is normal caliber. The cecum is normal caliber. ABDOMINAL WALL: No significant hernia is appreciated. LYMPH NODES: Normal. VASCULAR: Unremarkable. PELVIC VISCERA: The uterus is anteverted and appears unremarkable. There is no free fluid. No adnexal mass. No abnormal pelvic lymph nodes. OSSEOUS STRUCTURES: Mild degenerative disc changes L5-S1 disc level with ventral spondylosis. No aggressive lytic or sclerotic process seen. CT/CT abdomen pelvis w IV con IMPRESSION: 1. Diffuse mural thickening involving the terminal ileum and a long segment of distal ileum likely secondary to inflammatory bowel disease, likely Crohn's disease. There is mild dilatation of proximal and mid small bowel loops with air-fluid levels. 2. Cholelithiasis without wall thickening. Fleischner guidelines were followed.
--- NOTE | 2023-06-27 10:54 | ED.ABDPAIN ---
HPI - Abdominal Pain General Chief Complaint: Abdominal Pain Stated Complaint: ABD PAIN,W N/V/D AND DIZZINESS PER EMS Time Seen by Provider: 06/27/23 10:53 Source: patient and RN notes reviewed Mode of arrival: ambulatory Limitations: no limitations History of Present Illness HPI narrative: This is a 48-year-old female, with a past medical history of Crohn's disease currently managed on dicyclomine and lialda, presenting to the emergency department with complaints of continued abdominal pain (recently d/c for Crohn's Disease flare up on 06/13/23) x 1 month. Patient reports that throughout this past month her abdominal pain has not improved despite getting IV steroids during hospital admission and oral prednisone she was discharged on. She last took oral prednisone yesterday. She has followed up with her GI specialist is scheduled to have a colonoscopy and CT abdomen on July 05. She states that her pain was not well managed while at home and reported to the emergency room. She states that she had she episodes of generalized weakness last week, states that she had a bowel movement and ?passed out? last week due to the pain she had in her abdomen. She continues to have significant abdominal pain, nausea, and bloody stool per rectum. She states that she has felt generally weak as her appetite has been decreased as her abdomen is in so much pain. Denies any fevers, chills, chest pain, shortness of breath. Pt wa admitted to the hospital on 05/24 - 05/28 for SBO secondary to Crohn's flare. She was sent home on flagyl for [address] abdomen on 05/25/2023 showed a thick-walled distal small bowel consistent with inflammatory bowel disease also showed persistent dilatation of the small bowel consistent with partial obstruction with a tiny focus of air in the deep pelvis and mesenteric region suggestive of an early abscess formation. During her hospital stay she received IV fluids, IV Solu-Medrol and was discharged with GI follow-up. She then returned on 06/07 - 06/09 for acute Crohn's flare with likely partial small bowel obstruction. She denies any chest pain or shortness of breath. Does admit to having a Calvin horse in her calf. No other complaints or concerns at this time. MD elicited complaint: abdominal pain Pertinent past history: other (Crohn's disease) Onset (ago): month(s) Pain Consistency: constant Severity: severe Pain scale (0-10): 10 Quality: stabbing Radiation: none Migration to: no migration Exacerbating factors: eating Relieving factors: nothing Context: history of similar episodes Associated symptoms: nausea, diarrhea and syncope Related Data Home Medications Medication Instructions Recorded Confirmed cetirizine 10 mg tablet 10 mg PO DAILY 05/26/23 06/27/23 dicyclomine 10 mg capsule 20 mg PO QID 05/26/23 06/27/23 mesalamine 1.2 gram tablet,delayed 1.2 g PO DAILY 05/26/23 06/27/23 release (Lialda) multivitamin with minerals-folic 2 tab PO DAILY 05/26/23 06/27/23 acid 200 mcg chewable tablet (Multivitamin Gummies) fluticasone propionate 50 1 spray intranasal DAILY PRN 06/07/23 06/27/23 mcg/actuation nasal Allergy Symptoms spray,suspension Previous Rx's Medication Instructions Recorded prednisone 10 mg tablet See Taper PO DIRECTED #150 tabs 07/03/23 Allergies Allergy/AdvReac Type Severity Reaction Status Date / Time No Known Allergies Allergy Verified 06/07/23 09:51 [No Known Allergies*] Review of Systems Review of Systems Yes all other systems are reviewed and are negative Constitutional: Reports as per [facility] Past Medical History Medical History Crohn's disease Depression Social History Social History Household Members: Family Household Members Other:: grandmother Housing: House Do you presently have visiting nurse or other home services: No Alcohol intake: former Patient Tobacco Use Status: Former Tobacco user Quit Date: 3 days ago Tobacco use type: Cigarette Cigarette Packs Per Day: 0.5 Cigarettes Per Day: 10.0 Years Smoked: 34 Second Hand Smoke Exposure: No service: No Physical Exam ED Vital Signs: Vital Signs - 24 hr 06/27/23 10:27 06/27/23 11:36 06/27/23 14:01 Temperature 97.4 F Pulse Rate 88 Respiratory Rate 18 18 18 Blood Pressure 103/67 Pulse Oximetry 100 Oxygen Delivery Method Room Air 06/27/23 14:41 06/27/23 15:29 06/27/23 17:24 Temperature Pulse Rate 85 82 80 Respiratory Rate 15 16 12 Blood Pressure 110/58 L 101/46 L 112/62 Pulse Oximetry 95 94 96 Oxygen Delivery Method Room Air Room Air Room Air BMI result Body Mass Index 26.1 Const General: cooperative, comfortable and other (appears uncomfortable secondary to abdominal pain, moaning. ) Orientation/consciousness: patient oriented x3 Limitations: no limitations HENMT Head: Yes normal to inspection, Yes normocephalic and Yes atraumatic Ears: hearing grossly normal bilaterally General nose exam: Normal external nose present Face and sinus: Yes normal facial exam Mouth: Normal oral and palatal mucosa present, oropharynx normal and moist mucous membranes Throat: Yes posterior oropharynx normal Eyes General: appearance normal, both eyes and all related structures Eyelids: Yes eyelids normal Conjunctivae: conjunctivae normal Sclerae: sclerae normal Pupils: Equal, round and reactive pupils present EOM: EOMs intact bilaterally Neck Neck: Yes normal visual inspection, Yes full ROM and Yes no lymphadenopathy Lymphatic: no lymphadenopathy noted Chest Chest palpation & inspection: normal inspection of the chest Resp Effort & Inspection: normal respiratory effort and able to speak in complete sentences Auscultation: clear to auscultation bilaterally, no crackles, no rales, no rhonchi and no wheezes Cardio Rate: regular rate Rhythm: regular rhythm Heart sounds: S1 normal heart sound present and S2 normal heart sound present GI Other: Diffuse abdominal tenderness to palpation, worse in the right lower quadrant. Normoactive bowel sounds present. Inspection: Yes normal to inspection Skin General skin exam: no rashes or lesions noted Trauma: no lacerations or abrasions Wounds: no wounds Neuro General: patient oriented x3 and moves all extremities Cranial nerves: Yes Equal, round and reactive pupils present Extrem Other: Left calf with mild tenderness palpation, DP pulse 2 +. General: Yes normal to inspection Right upper extremity: normal to inspection Left upper extremity: normal to inspection Right lower extremity: normal to inspection Left lower extremity: normal to inspection Course Reevaluation(s) Reevaluation #1: Patient re-evaluated, still having pain, and nausea. Abdominal pain has improved as well as the nausea but still feeling weak. Discussed case with my attending physician, Dr. Power, who agrees that patient likely needs to be admitted for Crohn's flare up. Discussed case with GI specialist, Dr. Marcial aragon who recommends methylprednisone 60 mg IV, daily CRP and to be NPO today. Time: 16:36 Reevaluation #2: Patient is agreeable to hospital admission, spoke to hospitalist, Dr. Lao, who acccepts transfer of care. Medical Decision Making Medical Decision Making [facility] Narrative: This is a 48-year-old female presenting to the emergency department with complaints of continued abdominal pain. On arrival, blood pressure 103/67, of the vital signs within normal limits. Given significant past medical history as Crohn's disease with developing abscess during last hospital admission, concerning for bowel obstruction versus Crohn's disease vs abscess. Patient's abdomen is soft however with diffuse abdominal tenderness, no rebound or guarding. Patient appears uncomfortable. Patient does report passing out last week due after having bowel movement, likely vasovagal episode. Pt is fully neurologically intact. Plan: Labs, UA, antiemetics, pain management, CT abdomen with IV contrast Differential Diagnosis Differential Diagnoses: The differential diagnosis associated with the presentation includes Crohn's, diverticulitis, small-bowel obstruction Admission/Observation Consideration of admission/observation: Escalation of care including admission/observation considered Escalation of care including hospital admission with considered given abdominal pain and past medical history of Crohn's disease admission. Consult Healthcare Provider Management of the patient was discussed with: Hospitalist and Communication Lecturer Dr. Malloy Lab Data [facility] Lab Attestation statement: I reviewed the patient's lab results. Mild leukocytosis at 11.0 however patient has been on prednisone, may also be reactive. CRP 8.44 07/03/23 08:11 06/28/23 06:30 Labs: Lab Results 06/27/23 06/27/23 Range/Units 11:34 13:19 WBC 11.0 H (4.8-10.8) X10*3/uL RBC 4.53 (4.20-5.50) X10*6/uL Hgb 12.7 (12.0-16.0) g/dl Hct 38.6 (37.0-47.0) % MCV 85.2 (80.0-98.0) fL MCH 28.0 (27.0-33.0) pg MCHC 32.9 (31.0-35.0) g/dl RDW 14.6 (11.0-16.0) % Plt Count 452 H (160-400) X10*3/uL MPV 8.8 L (9.4-12.3) fL Immature Gran % (Auto) 0.2 (0.0-0.4) % Neut % (Auto) 50.9 (45-73) % Lymph % (Auto) 40.4 H (20-40) % [place] % (Auto) 6.1 (2-11) % Eos % (Auto) 1.8 (0-4) % Baso % (Auto) 0.6 (0-2) % Lymph # (Auto) 4.4 (1.2-4.9) X10*3/uL [place] # (Auto) 0.7 (0.1-1.2) X10*3/uL Eos # (Auto) 0.2 (0.0-0.4) X10*3/uL Baso # (Auto) 0.1 (0.0-0.2) X10*3/uL Abs Immat Gran (auto) 0.02 (0.00-0.03) X10*3/uL Absolute Neuts (auto) 5.6 (2.0-8.3) x10*3/uL Absolute Nucleated RBC 0.000 (0.0-0.012) X10*3/uL Nucleated RBC % (auto) 0.0 (0.0-0.2) /100WBC ESR 10 (0-20) MM/HR Sodium 136 (135-145) mmol/L Potassium 3.8 (3.3-5.1) mmol/L Chloride 101 (96-108) mmol/L Carbon Dioxide 24 (22-29) mmol/L Anion Gap 15 (12-20) BUN 14 (9-16) mg/dL Creatinine 0.71 (0.5-1.4) mg/dL Estim Creat Clear Calc 92.4 Estimated GFR > 60 Random Glucose 98 (60-115) mg/dL Lactic Acid 1.0 (0.5-2.0) mmol/L Calcium 9.7 (8.4-10.2) mg/dL Magnesium 1.9 (1.6-2.6) mg/dL Total Bilirubin 0.3 (0.0-1.0) mg/dL Direct Bilirubin 0.1 (0.0-0.5) mg/dL AST 13 (5-31) U/L ALT 18 (0-31) U/L Alkaline Phosphatase 83 (39-117) U/L Troponin I High Sens < 2.7 (<3.5-17.0) ng/L C-Reactive Protein 8.44 H (< or = 0.50) mg/dL Total Protein 7.2 (6.5-8.0) g/dL Albumin 3.9 (3.5-5.0) g/dL Lipase 10 (8-78) U/L Beta HCG, Quant 3 mIU/mL Urine Color Yellow Urine Appearance Clear Urine pH 6.0 (5.0-9.0) Ur Specific [place] 1.025 (1.005-1.025) Urine Protein Negative (Neg-Trace) mg/dL Urine Glucose (UA) Negative (Negative) mg/dL Urine Ketones 15 (Negative) mg/dL Urine Blood Negative (Negative) Urine Nitrite Negative (Negative) Ur Leukocyte Esterase Trace H (Negative) Urine RBC 0-2 (0-2) /HPF Urine WBC 0-5 (0-5) /HPF Ur Squamous Epith Cells 0-2 (0-2) /HPF Urine Bacteria None Seen (None Seen) Hyaline Casts 0-2 (0-2) /LPF Stool Occult Blood Cancelled Radiology Impression Discussion of test interpretation with radiology: I have reviewed the radiologist's reading. Radiologist Impression: EXAMINATION: CT ABDOMEN AND PELVIS WITH CONTRAST CLINICAL INFORMATION: Worsening abdominal pain. History of Crohn's disease. COMPARISON: None available. TECHNIQUE: Multidetector volumetric images were obtained from the superior aspect of the liver through the pubic symphysis following administration 85 mL of Omnipaque 350 intravenous contrast. Sagittal and coronal reformatted images were obtained on the technologist's workstation. Oral contrast: No This CT examination was performed using dose optimization techniques as appropriate, variously including the following: *Automated exposure control *Adjustment of mA and/or kV according to patient size (this includes techniques or standardized protocols for targeted exams where dose is matched to indication/reason for exam; i.e. extremities or head) *Use of iterative reconstruction technique DLP: 418 mGy-cm FINDINGS: LUNG BASES: The visualized lung bases are unremarkable. LIVER, GALLBLADDER, AND BILIARY TREE: The liver is normal in size, shape, and attenuation. No focal hepatic lesion or biliary ductal dilatation is present. There are multiple dependent gallstones without wall thickening. No pericholecystic fluid collection seen. PANCREAS: Unremarkable. SPLEEN: Unremarkable. ADRENAL GLANDS: Unremarkable. KIDNEYS AND URETERS: The kidneys are normal in size, shape, and attenuation. No hydronephrosis, hydroureter, or calculi seen. No perinephric stranding. BLADDER: Unremarkable. GASTROINTESTINAL TRACT: There are multiple dilated proximal and mid small bowel segments with air-fluid level. There is a diffuse mural thickening involving the terminal ileum and a long segment of distal ileum likely secondary to inflammatory bowel disease. There is best visualized on axial image 64/3 and 50/3. Minimal fat stranding is seen in the right lower quadrant. Appendix is normal caliber. The cecum is normal caliber. ABDOMINAL WALL: No significant hernia is appreciated. LYMPH NODES: Normal. VASCULAR: Unremarkable. PELVIC VISCERA: The uterus is anteverted and appears unremarkable. There is no free fluid. No adnexal mass. No abnormal pelvic lymph nodes. OSSEOUS STRUCTURES: Mild degenerative disc changes L5-S1 disc level with ventral spondylosis. No aggressive lytic or sclerotic process seen. CT/CT abdomen pelvis w IV con IMPRESSION: 1. Diffuse mural thickening involving the terminal ileum and a long segment of distal ileum likely secondary to inflammatory bowel disease, likely Crohn's disease. There is mild dilatation of proximal and mid small bowel loops with air-fluid levels. 2. Cholelithiasis without wall thickening. Fleischner guidelines were followed. Dictated By: Nick Ray MD EXAMINATION: US VENOUS ULTRASOUND WITH DOPPLER LOWER EXTREMITY, LEFT CLINICAL INFORMATION: Calf pain COMPARISON: None available. TECHNIQUE: Ultrasound of the deep veins is performed from the hip to the calf with compression sonography and color and pulse Doppler assessment. Spectral analysis with color-flow imaging is performed. FINDINGS: There is normal venous compression and respiratory variation and augmented flow. The visualized common femoral vein, superficial femoral vein, profunda femoral vein, popliteal vein, and the trifurcation region shows no evidence of deep venous thrombosis. US/US venous duplex LE LT IMPRESSION: No DVT demonstrated in the left lower extremity. Dictated By: Jaclyn Arevalo MD Prescription Management I considered prescription management with: Pain Medication Medications Administered Discontinued Medications Generic Name Dose Route Start Last Admin Trade Name Freq PRN Reason Stop Dose Admin Acetaminophen 650 mg 06/28/23 09:28 07/01/23 10:03 Acetaminophen 325 Mg Tablet PO 650 mg Q6H PRN Administration Pain, Moderate(Pain Scale 4-6) Enoxaparin Sodium 40 mg 06/27/23 19:00 07/02/23 18:18 Enoxaparin Sodium 40 Mg/0.4 Ml Syringe SUBCUT 40 mg Q24H ALONDRA Administration Hydromorphone HCl 2 mg 06/27/23 13:54 06/27/23 14:01 Hydromorphone Hcl 2 Mg/Ml Vial IVPUSH 06/27/23 13:55 2 mg ONCE ONE Administration Protocol Sodium Chloride 1,000 mls @ 999 mls/hr 06/27/23 11:10 06/27/23 12:44 Ns IV 06/27/23 12:10 Infused .Q1H1M ONE Infusion Promethazine HCl 12.5 mg/ 50.5 mls @ 202 mls/hr 06/27/23 15:33 06/27/23 17:18 Sodium Chloride IV 06/27/23 15:34 Infused ONCE ONE Infusion Sodium Chloride 1,000 mls @ 999 mls/hr 06/27/23 15:36 06/27/23 17:18 Ns IV 06/27/23 16:36 Infused .Q1H1M ONE Infusion Lactated Ringer's 1,000 mls @ 100 mls/hr 06/27/23 18:15 06/29/23 23:30 Lr IVCONT Infused .Q10H ALONDRA Infusion Iohexol 85 ml 06/27/23 13:34 06/27/23 13:34 Iohexol 350 Mg/Ml 100 Ml Infus..Btl IV 06/27/23 13:35 85 ml ONCE ONE Administration Methylprednisolone Sodium Succinate 60 mg 06/27/23 17:09 06/27/23 17:21 Methylprednisolone Sod Succ 125 Mg/2 Ml Vial IVPUSH 06/27/23 17:10 60 mg ONCE ONE Administration Methylprednisolone Sodium Succinate 60 mg 06/28/23 06:00 06/28/23 05:30 Methylprednisolone Sod Succ 125 Mg/2 Ml Vial IVPUSH 60 mg Q12H ALONDRA Administration Methylprednisolone Sodium Succinate 40 mg 06/28/23 10:14 07/03/23 09:16 Methylprednisolone Sod Succ 125 Mg/2 Ml Vial IVPUSH 40 mg Q12H ALONDRA Administration Morphine Sulfate 4 mg 06/27/23 11:11 06/27/23 11:36 Morphine Sulfate 4 Mg/Ml Cartridge IVPUSH 06/27/23 11:12 4 mg ONCE ONE Administration Protocol Morphine Sulfate 2 mg 06/27/23 18:11 07/01/23 15:26 Morphine Sulfate 4 Mg/Ml Cartridge IVPUSH 2 mg Q4H PRN Administration Pain, Severe (Pain Scale 7-10) Protocol Ondansetron HCl 4 mg 06/27/23 11:10 06/27/23 11:38 Ondansetron Hcl 4 Mg/2 Ml Vial IVPUSH 06/27/23 11:11 4 mg ONCE ONE Administration Ondansetron HCl 4 mg 06/27/23 18:11 06/30/23 20:08 Ondansetron Hcl 4 Mg/2 Ml Vial IVPUSH 4 mg Q8H PRN Administration Nausea and Vomiting Sodium Chloride 3 ml 06/28/23 00:00 07/03/23 09:16 0.9 % Sodium Chloride Flush 3 Ml Syringe IVFLUSH 3 ml QSHIFT ALONDRA Administration Critical Care Time Critical Care Time Critical Care Time: Yes Total Critical Care Time: 50 Attestation: I have personally provided critical care time exclusive of time spent on separately billable procedures. Time includes review of lab data, radiology results, discussion with consultants, and monitoring for potential decompensation. Intervention performed as documented. Discharge Plan Discharge Clinical Impression: Crohn disease Patient Disposition: Admitted As Inpatient Interventions: Admission Worksheet (ED) Last Done: 06/27/23 22:26 Discharge Date/Time: 06/27/23 22:30
[2023-06-27] MEDS: Morphine Sulfate 4 MG/ML CARTRIDGE IVPUSH (11:36)
[2023-06-27] MEDS: ondansetron HCL 4 MG/2 ML VIAL IVPUSH (11:38)
[2023-06-27] MEDS: 0.9 % Sodium Chloride 1,000 ML 999 ML IV ×2 (11:38→15:55)
[2023-06-27 11:42] LABS: MANUAL DIFF FLAG NO
[2023-06-27 11:47] LABS: Basophils Absolute Auto 0.1 X10*3/uL (0.0-0.2); Basophils Percent Auto 0.6 % (0-2); Eosinophils Absolute Auto 0.2 X10*3/uL (0.0-0.4); Eosinophils Percent Auto 1.8 % (0-4); Hematocrit 38.6 % (37.0-47.0); Hemoglobin 12.7 g/dl (12.0-16.0); Imm Gran Abs Auto 0.02 X10*3/uL (0.00-0.03); Imm Gran Pct Auto 0.2 % (0.0-0.4); Lymphocytes Absolute Auto 4.4 X10*3/uL (1.2-4.9); Lymphocytes Percent Auto 40.4 % (20-40); Mean Corpuscular HGB Conc 32.9 g/dl (31.0-35.0); Mean Corpuscular Volume 85.2 fL (80.0-98.0); Mean Platelet Volume 8.8 fL (9.4-12.3); Monocytes Absolute Auto 0.7 X10*3/uL (0.1-1.2); Monocytes Percent Auto 6.1 % (2-11); Neutrophils Absolute Auto 5.6 x10*3/uL (2.0-8.3); Neutrophils Percent Auto 50.9 % (45-73); Platelet Count 452 X10*3/uL (160-400); Red Blood Count 4.53 X10*6/uL (4.20-5.50); Red Cell Distribution Width 14.6 % (11.0-16.0)
[2023-06-27 12:01] LABS: Alanine Aminotransferase 18 U/L (0-31); Albumin Level 3.9 g/dL (3.5-5.0); Alkaline Phosphatase 83 U/L (39-117); Anion Gap 15 (12-20); Aspartate Amino Transferase 13 U/L (5-31); Bilirubin Direct 0.1 mg/dL (0.0-0.5); Bilirubin Total 0.3 mg/dL (0.0-1.0); Blood Urea Nitrogen 14 mg/dL (9-16); C Reactive Protein 8.44 mg/dL (< or = 0.50); Calcium 9.7 mg/dL (8.4-10.2); Carbon Dioxide 24 mmol/L (22-29); Chloride 101 mmol/L (96-108); Creatinine Clr Calc Pharmacy 92.4; Estimated Glomerular Filt Rate > 60; Glucose Random 98 mg/dL (60-115); Lipase 10 U/L (8-78); Magnesium 1.9 mg/dL (1.6-2.6); Potassium 3.8 mmol/L (3.3-5.1); Sodium 136 mmol/L (135-145); Total Protein 7.2 g/dL (6.5-8.0)
[2023-06-27 12:11] LABS: Troponin-I High Sensitivity < 2.7 ng/L (<3.5-17.0)
[2023-06-27 12:26] LABS: Erythrocyte Sedimentation Rate 10 MM/HR (0-20)
[2023-06-27 13:13] LABS: HCG Quantitative 3 mIU/mL
[2023-06-27 13:28] LABS: Appearance Urine Clear; Color Urine Yellow; Glucose Urine UA Negative (Negative); Leukocyte Esterase Urine Trace (Negative); Nitrite Urine Negative (Negative); Specific Gravity - Urine 1.025 (1.005-1.025); UMIC TRIGGER UACC YES; Urine Blood Negative (Negative); Urine Ketones 15 mg/dL (Negative); Urine Protein Negative (Neg-Trace)
[2023-06-27 13:34] LABS: Bacteria Urine None Seen (None Seen); Hyaline Casts Urine 0-2 /LPF (0-2); RBC Urine 0-2 /HPF (0-2); Squamous Epithelial Cell Urine 0-2 /HPF (0-2); WBC Urine 0-5 /HPF (0-5)
[2023-06-27] MEDS: iohexoL 350 MG/ML 100 ML INFUS..BTL 85 ML IV (13:34)
[2023-06-27] MEDS: HYDROmorphone HCl 2 MG/ML VIAL IVPUSH (14:01)
--- NOTE | 2023-06-27 14:59 | PC.NURSE ---
[place] [facility] with complaints of GI distress x4 days, history of hospitalizations for the same. Dx with Chron's Disease back in April and began working with a Gastrointerologist. Pt is presently on medication for Chron's, but states that it is not working. Pt initially endorsed 10/10 pain, medicated per NOV. Pt was experiencing severe nausea and dry heaving, states that she has been unable to eat/keep anything down, recently lost a significant amount of weight due to continuing GI issues. CT scan complete, awaiting provider plan. Awaiting stool sample from patient, all other specimens sent. Family member presently at bedside. Currently appears in NAD. WCTA
[2023-06-27] MEDS: methylPREDNISolone Sod Succ 125 MG/2 ML VIAL 60 MG IVPUSH (17:21)
--- NOTE | 2023-06-27 18:15 | P.HPHOSP_ITS ---
History of Present Illness Date of Service: 06/27/23 <MARILEE French - Last Filed: 06/27/23 18:33> Attending physician on admission: Enrike Lao <MARILEE French - Last Filed: 06/27/23 18:33> Chief Complaint: abd pain, n/v, brbpr <MARILEE French - Last Filed: 06/27/23 18:33> 48-year-old female with history of Crohn's disease (follows with Jessica) and depression presents to the ED earlier today for evaluation of diffuse ongoing abdominal pain. She was recently admitted for a Crohn's flare with discharge on 06/13 and has been taking prednisone daily as well as her dicyclomine on mesalamine as prescribed. She states 5 days ago the pain acutely worsened, reported 06/13 sharp/ripping pain with associated diarrhea and bright red blood per rectum. She states she was having a bowel movement night and syncopized with LOC of unclear duration. She states this recurred the next morning while having a bowel movement but did not seek emergency evaluation. Since then, the severe abdominal pain has persisted with decreased p.o. intake, anorexia, nausea and vomiting. She states the diarrhea has resolved but had soft stool earlier this morning again with bright red blood per rectum. She denies any fevers but feels chills. She has a cigarette smoker but states she has not had any cigarettes in 1 week. Denies any alcohol use or drug use. She tells me she was scheduled to have a colonoscopy on 07/05 with a lithographic general worker. On arrival, vital stable. Mild leukocytosis of 11.0. No anemia. Renal function and electrolyte levels normal. Hepatic function normal. Troponin undetectable. CRP 8.44, ESR 10. Urinalysis unremarkable. Stool occult blood pending. CT abdomen/pelvis shows diffuse mural thickening involving the terminal ileum and a long segment of the distal ileum likely secondary to inflammatory bowel disease, most likely Crohn's disease. There is mild dilatation of the proximal and mid small bowel loops with air-fluid levels. In the ED, has received 2 L IV NS, 4 mg morphine, 2 mg hydromorphone, ondansetron, 60 mg IV methylprednisolone, and 12.5 mg IV Phenergan. Currently patient reports pain is resolved but still feels very nauseous and with anorexia. Lydia discuss case with Gastroenterology recommending admission for IV steroids. < MARILEE French - Last Filed: 06/27/23 18:33> Review of Systems 2 Review of Systems: General: No fevers, malaise, unintentional weight loss Cardiovascular: No chest pain, palpitations, or leg edema Respiratory: No shortness of breath, wheezing, cough GI: +abd pain, +nausea, +vomiting, +diarrhea, +BRBPR. No constipation, melena : No dysuria, hematuria, increased urinary frequency, decreased urinary output MSK: No myalgia, back pain Neuro: No headaches, weakness, paresthesias Skin: No rashes or lesions <MARILEE French - Last Filed: 06/27/23 18:33> [facility] Medical History: Medical History Crohn's disease Depression <MARILEE French - Last Filed: 06/27/23 18:33> Social History: Social History Household Members: Family Household Members Other:: grandmother Housing: House Do you presently have visiting nurse or other home services: No Alcohol intake: former Patient Tobacco Use Status: Former Tobacco user Quit Date: 3 days ago Tobacco use type: Cigarette Cigarette Packs Per Day: 0.5 Cigarettes Per Day: 10.0 Years Smoked: 34 Smoked in Last 30 Days: No Second Hand Smoke Exposure: No Use of substances other than those prescribed or required for medical reasons: No Currently Displaying Signs/Symptoms of Drug Intoxication Withdrawal: No Have you been hit, kicked, punched, or otherwise hurt by someone within the past year? If so, by whom?: No Do you feel safe in your current relationship?: No Current Relationship Is there a partner from a previous relationship who is making you feel unsafe now?: No Are you made to feel afraid or neglected: No Advance Directives: No Advance Directives Information Provided: No Do you have thoughts of harming others: None Do you have a plan to hurt others: No Plan Recently lost weight without trying: Unsure How much weight loss: 24-33 pounds Nutrition Risks: Acute nausea or vomiting x1 week, Anorexia and Poor intake 0- 25% >4 days Patient : No : No Poor oral hygiene: No service: No <MARILEE French - Last Filed: 06/27/23 18:33> Meds Allergies/Adverse reactions: Allergies Allergy/AdvReac Type Severity Reaction Status Date / Time No Known Allergies Allergy Verified 06/07/23 09:51 [No Known Allergies*] <MARILEE French - Last Filed: 06/27/23 18:33> Home medications: Home Medications Medication Instructions Recorded Confirmed Last Taken Type cetirizine 10 mg tablet 10 mg PO DAILY 05/26/23 06/27/23 06/27/23 History dicyclomine 10 mg capsule 20 mg PO QID 05/26/23 06/27/23 06/27/23 History mesalamine 1.2 gram tablet,delayed 1.2 g PO DAILY 05/26/23 06/27/23 06/27/23 History release (Lialda) multivitamin with minerals-folic 2 tab PO DAILY 05/26/23 06/27/23 06/27/23 History acid 200 mcg chewable tablet (Multivitamin Gummies) fluticasone propionate 50 1 spray intranasal DAILY PRN 06/07/23 06/27/23 06/27/23 History mcg/actuation nasal Allergy Symptoms spray,suspension <MARILEE French - Last Filed: 06/27/23 18:33> Physical Exam 2 Vital Signs and Narrative: Vital Signs: Last Vital Signs Temp 97.4 F 06/27/23 10:27 Pulse 80 06/27/23 17:24 Resp 12 06/27/23 17:24 BP 112/62 06/27/23 17:24 Pulse Ox 96 06/27/23 17:24 O2 Del Method Room Air 06/27/23 17:24 BMI result Body Mass Index 26.1 <MARILEE French - Last Filed: 06/27/23 18:33> Constitutional - Awake and Alert, No apparent distress Eyes - PERRLA, EOMI Cardiovascular - S1S2, RRR, No edema Respiratory - Normal lung expansion, Normal respiratory effort, No respiratory distress, CTA bilaterally Gastrointestinal - diffuse abd ttp, greatest in RLQ with voluntary guarding. No rebound. ND; +BS Extremities - no calf tenderness bilaterally, no swelling Skin - Warm/Dry Neurological - Alert & oriented x3 Psychological - Appropriate affect <MARILEE French - Last Filed: 06/27/23 18:33> Results Labs CBC and Chem 7: 06/28/23 06:30 06/28/23 06:30 <MARILEE French - Last Filed: 06/27/23 18:33> Labs: Laboratory Results - last 24 hr 06/27/23 06/27/23 11:34 13:19 MCV 85.2 MCH 28.0 MCHC 32.9 RDW 14.6 Plt Count 452 H MPV 8.8 L Immature Gran % (Auto) 0.2 Neut % (Auto) 50.9 Lymph % (Auto) 40.4 H Yancey % (Auto) 6.1 Eos % (Auto) 1.8 Baso % (Auto) 0.6 Lymph # (Auto) 4.4 Yancey # (Auto) 0.7 Eos # (Auto) 0.2 Baso # (Auto) 0.1 Abs Immat Gran (auto) 0.02 Absolute Neuts (auto) 5.6 Absolute Nucleated RBC 0.000 Nucleated RBC % (auto) 0.0 ESR 10 Anion Gap 15 Estim Creat Clear Calc 92.4 Estimated GFR > 60 Random Glucose 98 Lactic Acid 1.0 Calcium 9.7 Magnesium 1.9 Total Bilirubin 0.3 Direct Bilirubin 0.1 AST 13 ALT 18 Alkaline Phosphatase 83 C-Reactive Protein 8.44 H Total Protein 7.2 Albumin 3.9 Lipase 10 Beta HCG, Quant 3 Urine Color Yellow Urine Appearance Clear Urine pH 6.0 Ur Specific [place] 1.025 Urine Protein Negative Urine Glucose (UA) Negative Urine Ketones 15 Urine Blood Negative Urine Nitrite Negative Ur Leukocyte Esterase Trace H Urine RBC 0-2 Urine WBC 0-5 Ur Squamous Epith Cells 0-2 Urine Bacteria None Seen Hyaline Casts 0-2 <MARILEE French - Last Filed: 06/27/23 18:33> Imaging Radiologist's Impressions: Impressions Venous Duplex 06/27/23 11:50 IMPRESSION: No DVT demonstrated in the left lower extremity. Abdomen/Pelvis CT 06/27/23 13:35 IMPRESSION: 1. Diffuse mural thickening involving the terminal ileum and a long segment of distal ileum likely secondary to inflammatory bowel disease, likely Crohn's disease. There is mild dilatation of proximal and mid small bowel loops with air-fluid levels. 2. Cholelithiasis without wall thickening. Fleischner guidelines were followed. <MARILEE French - Last Filed: 06/27/23 18:33> Assessment and Plan (1) Crohn disease: Status: Acute <MARILEE French - Last Filed: 06/27/23 18:33> 48-year-old female with history of Crohn's disease (follows with Jessica) and depression admitted for acute Crohns flare with possible partial SBO. #Acute Crohns flare -recent adm with d/c 06/13 for crohns flare and possible partial sbo, continues on PO prednisone -IV methylprednisolone 60mg BID -continue mesalamine and dicyclomine -keep NPO for now, advanced as tolerated per GI -ondansetron p.r.n. -pain management using pain scale -gastroenterology consult -Monitor CBC #? Partial SBO -CT abdomen/pelvis shows mild dilatation of the proximal and mid small bowel loops with air-fluid levels -no ongoing nausea or vomiting. Defer NG tube -keep NPO for now -consider general surgery consult if no improvement # cigarettes smoker -recently quit 1 week ago, declines NRT -smoking cessation counseling, encouraged ongoing cessation DVT prophylaxis-Lovenox Full code Patient requires inpatient stay at least 2 midnights for management of acute Crohn's flare requiring NPO status and IV steroids as well as expert consultation <MARILEE French - Last Filed: 06/27/23 18:33> 48-year-old female with history of Crohn's disease (follows with Jessica) and depression admitted for acute Crohns flare with possible partial SBO. #Acute Crohns flare -recent adm with d/c 06/13 for crohns flare and possible partial sbo, continues on PO prednisone -IV methylprednisolone 60mg BID -continue mesalamine and dicyclomine -keep NPO for now, advanced as tolerated per GI -ondansetron p.r.n. -pain management using pain scale -gastroenterology consult -Monitor CBC #? Partial SBO -CT abdomen/pelvis shows mild dilatation of the proximal and mid small bowel loops with air-fluid levels -no ongoing nausea or vomiting. Defer NG tube -keep NPO for now -consider general surgery consult if no improvement # cigarettes smoker -recently quit 1 week ago, declines NRT -smoking cessation counseling, encouraged ongoing cessation DVT prophylaxis-Lovenox Full code Patient requires inpatient stay at least 2 midnights for management of acute Crohn's flare requiring NPO status and IV steroids as well as expert consultation <Enrike Lao MD - Last Filed: 06/28/23 10:10> Time Spent With Patient Time: Total time managing care of this patient today ____ minutes. <MARILEE French - Last Filed: 06/27/23 18:33> Quality Stroke Does the patient have a stroke diagnosis?: No <MARILEE French - Last Filed: 06/27/23 18:33> VTE Prior VTE?: No <MARILEE French - Last Filed: 06/27/23 18:33> VTE Risk Level:: Medical - moderate - high <MARILEE French - Last Filed: 06/27/23 18:33> VTE Device Contraindication: Treatment Not Indicated <MARILEE French - Last Filed: 06/27/23 18:33> VTE Drug Contraindication: N/A - Med Ordered <MARILEE French - Last Filed: 06/27/23 18:33>
[2023-06-27] MEDS: Lactated Ringers 1,000 ML 100 ML IVCONT (19:37)
--- NOTE | 2023-06-27 19:39 | PHA.MEDREC ---
Pharmacy Consult ? Medication Reconciliation Pharmacy has completed the medication reconciliation. Pt told to increase dicyclomine to 20 mg qid and stop prednisone by her doctor
--- NOTE | 2023-06-27 20:45 | PC.NURSE ---
This teletypewriter operator assumed care of pt at 1900, Pt AOx3, Pt reporting 4/10 abdominal pain, LR running per MAR. Pt is calm and cooperative, aware of plan of care. pt remains NPO
--- NOTE | 2023-06-27 22:32 | PC.NURSE ---
RN to RN report given to Khalida pt will be transported to room 473. Pt aware of plan.
[2023-06-27] MEDS: Morphine Sulfate 4 MG/ML CARTRIDGE 2 MG IVPUSH (23:02)
--- NOTE | 2023-06-28 04:59 | PC.NURSE ---
Pt to MTU at approx 2245. Ambulated well from stretcher to hospital bed. Pt A&Ox4, respirations equal and unlabored. Abdomen tender, denies nausea or vomiting. Pt states she lost consciousness at home a few days ago and fell forward, hitting her face and teeth - any previously open areas have healed, no c/o pain to the area. Pt discussed family medical history and stated her mother from colon CA - pt states she is worried she is suffering from same symptoms. Pt resting comfortably in bed, medicated per MAR, HOB elevated for pt comfort, call jackson within reach, bed alarm on (placed on high fall risk because of recent fall).
[2023-06-28] MEDS: methylPREDNISolone Sod Succ 125 MG/2 ML VIAL 60 MG IVPUSH (05:30)
[2023-06-28] MEDS: Lactated Ringers 1,000 ML 100 ML IVCONT ×2 (05:31→15:34)
[2023-06-28 06:54] LABS: MANUAL DIFF FLAG NO
[2023-06-28 07:01] LABS: Basophils Percent Auto 0.5 % (0-2); Eosinophils Percent Auto 0.2 % (0-4); Hematocrit 31.4 % (37.0-47.0); Hemoglobin 10.4 g/dl (12.0-16.0); Imm Gran Abs Auto 0.01 X10*3/uL (0.00-0.03); Imm Gran Pct Auto 0.2 % (0.0-0.4); Lymphocytes Absolute Auto 2.4 X10*3/uL (1.2-4.9); Mean Corpuscular HGB Conc 33.1 g/dl (31.0-35.0); Mean Corpuscular Hemoglobin 28.7 pg (27.0-33.0); Mean Corpuscular Volume 86.5 fL (80.0-98.0); Mean Platelet Volume 8.9 fL (9.4-12.3); Monocytes Absolute Auto 0.3 X10*3/uL (0.1-1.2); Monocytes Percent Auto 4.4 % (2-11); Neutrophils Absolute Auto 3.8 x10*3/uL (2.0-8.3); Neutrophils Percent Auto 57.7 % (45-73); Platelet Count 346 X10*3/uL (160-400); Red Blood Count 3.63 X10*6/uL (4.20-5.50); Red Cell Distribution Width 14.5 % (11.0-16.0); White Blood Count 6.6 X10*3/uL (4.8-10.8)
[2023-06-28 07:15] VITALS: BP 107/57; PULSE 82; RESP 16; TEMP 36.2; O2SAT 97
[2023-06-28 07:19] LABS: Anion Gap 14 (12-20); Blood Urea Nitrogen 7 mg/dL (9-16); Calcium 8.6 mg/dL (8.4-10.2); Carbon Dioxide 22 mmol/L (22-29); Chloride 105 mmol/L (96-108); Creatinine Clr Calc Pharmacy 127.9; Estimated Glomerular Filt Rate > 60; Glucose Random 101 mg/dL (60-115); Potassium 4.3 mmol/L (3.3-5.1); Sodium 137 mmol/L (135-145)
--- NOTE | 2023-06-28 08:55 | MHC.CM.PN ---
Pt lives at home with her daughter and grandmother, is self-care, independent, and employed. Goal is to return home self-care. Pts daughter will transport her home. HCP completed with pt, now on file. PCP: Gwendolyn Luis
--- NOTE | 2023-06-28 09:07 | P.CNGI_ITS ---
History of Present Illness Data of Consult Service Date: 06/28/23 Requesting physician: Siobhan Bowles Primary Care Provider: Gwendolyn Luis MD HPI Reason for consult: Crohns flare This is a 48-year-old female with recently diagnosed Crohn's disease of small and large intestine, who is coming in a 3rd time for Crohn's flare in the past 30 days. Pt reports getting diagnosed Apr 2022 when she had developed diffuse abd pain with bloody diarrhea and bilateral hip pain. Sees Jamal HUNT at [place] and was started on prednisone as well as Lialda 1.2g/day. However, disease remains uncontrolled. Most recently was discharged from the hospital on pred taper. Reports fairly rapid onset of symptoms of severe crampy abdominal pain with diarrhea and blood in stool that started 3 days after she lowered her dose down from 20mg to 10mg of pred. Reports multiple episodes of syncope with this most of which occured while she was passing a BM. For the last 3 days has also developed progressive nausea and vomiting and unable to keep anything PO. Initially did not seek any medical attention as she was still cont her prednisone taper and figured this would get better but sx have progressed despite completing taper on Monday06/26/23. She reports having a discussion re possible need for infusion therapy with her outpatient metal bonding helper 2 weeks ago and is booked for an outpatient colonoscopy on 07/05 for the same. On initial assessment in ER, was noted to have soft pressures. Labs with mild leukocytosis. High CRP of >8, previous admission in May was around 5. CT Abd/pel with evidence of active crohns disease of ileum with at least partial SBO. On bedside evaluation, reports has not been able to tolerate any fluids PO. Has not passed flatus or BM x 2 days. Review of Systems 2 Review of Systems: Yes all other systems are reviewed and are negative PMFSH Past Medical History Medical History Crohn's disease Depression Social History Social History Household Members: Family Household Members Other:: grandmother Housing: House Do you presently have visiting nurse or other home services: No Alcohol intake: former Patient Tobacco Use Status: Former Tobacco user Quit Date: 3 days ago Tobacco use type: Cigarette Cigarette Packs Per Day: 0.5 Cigarettes Per Day: 10.0 Years Smoked: 34 Smoked in Last 30 Days: No Second Hand Smoke Exposure: No Use of substances other than those prescribed or required for medical reasons: No Currently Displaying Signs/Symptoms of Drug Intoxication Withdrawal: No Have you been hit, kicked, punched, or otherwise hurt by someone within the past year? If so, by whom?: No Do you feel safe in your current relationship?: No Current Relationship Is there a partner from a previous relationship who is making you feel unsafe now?: No Are you made to feel afraid or neglected: No Advance Directives: No Advance Directives Information Provided: No Do you have thoughts of harming others: None Do you have a plan to hurt others: No Plan Recently lost weight without trying: Unsure How much weight loss: 24-33 pounds Nutrition Risks: Acute nausea or vomiting x1 week, Anorexia and Poor intake 0- 25% >4 days Patient : No : No Poor oral hygiene: No service: No Meds Allergies Allergy/AdvReac Type Severity Reaction Status Date / Time No Known Allergies Allergy Verified 06/07/23 09:51 [No Known Allergies*] Active Medications: Current Medications Enoxaparin Sodium (Enoxaparin Sodium 40 Mg/0.4 Ml Syringe) 40 mg SUBCUT Q24H [facility] Last Admin: 06/27/23 19:40 Dose: Not Given Lactated Ringer's (Lr) 1,000 mls @ 100 mls/hr IVCONT .Q10H [facility] Last Admin: 06/28/23 05:33 Dose: Not Given Methylprednisolone Sodium Succinate (Methylprednisolone Sod Succ 125 Mg/2 Ml Vial) 60 mg IVPUSH Q12H [facility] Last Admin: 06/28/23 05:30 Dose: 60 mg Morphine Sulfate (Morphine Sulfate 4 Mg/Ml Cartridge) 2 mg IVPUSH Q4H PRN; Protocol PRN Reason: Pain, Severe (Pain Scale 7-10) Last Admin: 06/27/23 23:02 Dose: 2 mg Ondansetron HCl (Ondansetron Hcl 4 Mg/2 Ml Vial) 4 mg IVPUSH Q8H PRN PRN Reason: Nausea and Vomiting Sodium Chloride (0.9 % Sodium Chloride Flush 3 Ml Syringe) 3 ml IVFLUSH QSHIFT [facility] Last Admin: 06/28/23 00:38 Dose: Not Given Home Medications Medication Instructions Recorded Confirmed Last Taken Type cetirizine 10 mg tablet 10 mg PO DAILY 05/26/23 06/27/23 06/27/23 History dicyclomine 10 mg capsule 20 mg PO QID 05/26/23 06/27/23 06/27/23 History mesalamine 1.2 gram tablet,delayed 1.2 g PO DAILY 05/26/23 06/27/23 06/27/23 History release (Lialda) multivitamin with minerals-folic 2 tab PO DAILY 05/26/23 06/27/23 06/27/23 History acid 200 mcg chewable tablet (Multivitamin Gummies) fluticasone propionate 50 1 spray intranasal DAILY PRN 06/07/23 06/27/23 06/27/23 History mcg/actuation nasal Allergy Symptoms spray,suspension Physical Exam 2 Vital Signs: Vital Signs: Last Vital Signs Temp 97.2 F 06/28/23 07:15 Pulse 82 06/28/23 07:15 Resp 16 06/28/23 07:15 BP 107/57 L 06/28/23 07:15 Pulse Ox 97 06/28/23 07:15 O2 Del Method Room Air 06/28/23 07:15 BMI result Body Mass Index 25.8 Gen appear: Nontoxic appearing HEENT: nonicteric, no cervical lymphadenopathy Chest: CTA CVS: Regular S1/S2 Abd: soft, mildly distended, tender diffusely with guarding, hypoactive bowel sounds Ext: no peripheral edema Neuro: A/Ox3, noted to move all extremities spontaneously Psych: interacting appropriately Results Labs 06/28/23 06:30 06/28/23 06:30 Labs: Short CBC 06/27/23 06/28/23 Range/Units 11:34 06:30 WBC 11.0 H 6.6 (4.8-10.8) X10*3/uL Hgb 12.7 10.4 L (12.0-16.0) g/dl Hct 38.6 31.4 L (37.0-47.0) % Plt Count 452 H 346 (160-400) X10*3/uL BMP 06/27/23 06/28/23 11:34 06:30 Sodium 136 137 Potassium 3.8 4.3 Chloride 101 105 Carbon Dioxide 24 22 BUN 14 7 L Creatinine 0.71 0.51 Calcium 9.7 8.6 D Liver Function 06/27/23 Range/Units 11:34 Total Bilirubin 0.3 (0.0-1.0) mg/dL Direct Bilirubin 0.1 (0.0-0.5) mg/dL AST 13 (5-31) U/L ALT 18 (0-31) U/L Alkaline Phosphatase 83 (39-117) U/L Albumin 3.9 (3.5-5.0) g/dL Urine 06/27/23 Range/Units 13:19 Urine Color Yellow Urine Appearance Clear Urine pH 6.0 (5.0-9.0) Ur Specific [place] 1.025 (1.005-1.025) Urine Protein Negative (Neg-Trace) mg/dL Urine Glucose (UA) Negative (Negative) mg/dL Assessment and Plan (1) Crohn disease: Status: Acute (2) Small bowel obstruction: Status: Acute Plan Continues with uncontrolled crohns disease of small bowel with inflammatory phenotype that flares as soon as patient attempts to taper off corticosteroids. Needs escalation of outpatient treatment with anti-TNF vs anti-integrin vs IL- inhibitor and reports is scheduled for a colo on 07/05 to guide the same. Currently, clinical assessment consistent with SBO due to active crohns given N/V and obstipation. Previously has resolved with IV steroids and hope follows suit this time as well. Recommendations: - Keep NPO for now until s/x of obstruction improve - Cont IV methylpred 60mg once daily - Daily CRP - Fecal calpro ordered - Surgical consultation - Pls do not withhold DVT prophylaxis given active CD is a pro-inflammatory state which predisposes pts to VTE events Thank you for allowing me to participate in her care. Please do not hesitate to reach out for any questions or concerns. Time Spent With Patient Time: Total time managing care of this patient today ____ minutes. Procedures Date of Service Date of Service: 06/28/23
[2023-06-28] MEDS: Acetaminophen 325 MG TABLET 650 MG PO ×2 (09:57→23:28)
[2023-06-28] MEDS: 0.9 % Sodium Chloride Flush 3 ML SYRINGE IVFLUSH ×2 (09:57→15:41)
--- NOTE | 2023-06-28 10:10 | P.PNIM_ITS ---
Subjective Subjective Date of Service: 06/28/23 Interval History: f/u on crohn's flare she is doing better today Physical Exam 2 Vital Signs: Vital Signs: Last Vital Signs Temp 97.2 F 06/28/23 07:15 Pulse 82 06/28/23 07:15 Resp 16 06/28/23 07:15 BP 107/57 L 06/28/23 07:15 Pulse Ox 97 06/28/23 07:15 O2 Del Method Room Air 06/28/23 07:15 BMI result Body Mass Index 25.8 Const: Other: General: AO X 3, no acute distress Resp: CTA bilateral CVS: S1,S2,RRR GI: +BS, mild tenderness Skin: No rash Neuro: motor grossly intact Psych: appropriate affect Objective Data Active Medications Acetaminophen (Acetaminophen 325 Mg Tablet) 650 mg PO Q6H PRN PRN Reason: Pain, Moderate(Pain Scale 4-6) Last Admin: 06/28/23 09:57 Dose: 650 mg Documented By: YECENIA Enoxaparin Sodium (Enoxaparin Sodium 40 Mg/0.4 Ml Syringe) 40 mg SUBCUT Q24H [facility] Last Admin: 06/27/23 19:40 Dose: Not Given Documented By: LOUISE Non-Admin Reason: Patient Refused Lactated Ringer's (Lr) 1,000 mls @ 100 mls/hr IVCONT .Q10H [facility] Last Admin: 06/28/23 05:31 Dose: 100 mls/hr Documented By: JEROME Methylprednisolone Sodium Succinate (Methylprednisolone Sod Succ 125 Mg/2 Ml Vial) 60 mg IVPUSH Q12H [facility] Last Admin: 06/28/23 05:30 Dose: 60 mg Documented By: JEROME Morphine Sulfate (Morphine Sulfate 4 Mg/Ml Cartridge) 2 mg IVPUSH Q4H PRN; Protocol PRN Reason: Pain, Severe (Pain Scale 7-10) Last Admin: 06/27/23 23:02 Dose: 2 mg Documented By: JEROME Ondansetron HCl (Ondansetron Hcl 4 Mg/2 Ml Vial) 4 mg IVPUSH Q8H PRN PRN Reason: Nausea and Vomiting Sodium Chloride (0.9 % Sodium Chloride Flush 3 Ml Syringe) 3 ml IVFLUSH QSHIFT [facility] Last Admin: 06/28/23 09:57 Dose: 3 ml Documented By: YECENIA Labs 06/28/23 06:30 06/28/23 06:30 Labs: Laboratory Results - last 24 hr 06/27/23 06/27/23 06/28/23 11:34 13:19 06:30 MCV 85.2 86.5 MCH 28.0 28.7 MCHC 32.9 33.1 RDW 14.6 14.5 Plt Count 452 H 346 MPV 8.8 L 8.9 L Immature Gran % (Auto) 0.2 0.2 Neut % (Auto) 50.9 57.7 Lymph % (Auto) 40.4 H 37.0 [place] % (Auto) 6.1 4.4 Eos % (Auto) 1.8 0.2 Baso % (Auto) 0.6 0.5 Lymph # (Auto) 4.4 2.4 [place] # (Auto) 0.7 0.3 Eos # (Auto) 0.2 0.0 Baso # (Auto) 0.1 0.0 Abs Immat Gran (auto) 0.02 0.01 Absolute Neuts (auto) 5.6 3.8 Absolute Nucleated RBC 0.000 0.000 Nucleated RBC % (auto) 0.0 0.0 ESR 10 Anion Gap 15 14 Estim Creat Clear Calc 92.4 127.9 Estimated GFR > 60 > 60 Random Glucose 98 101 Lactic Acid 1.0 Calcium 9.7 8.6 D Magnesium 1.9 Total Bilirubin 0.3 Direct Bilirubin 0.1 AST 13 ALT 18 Alkaline Phosphatase 83 C-Reactive Protein 8.44 H Total Protein 7.2 Albumin 3.9 Lipase 10 Beta HCG, Quant 3 Urine Color Yellow Urine Appearance Clear Urine pH 6.0 Ur Specific [place] 1.025 Urine Protein Negative Urine Glucose (UA) Negative Urine Ketones 15 Urine Blood Negative Urine Nitrite Negative Ur Leukocyte Esterase Trace H Urine RBC 0-2 Urine WBC 0-5 Ur Squamous Epith Cells 0-2 Urine Bacteria None Seen Hyaline Casts 0-2 Assessment and Plan (1) Crohn disease: Status: Acute (2) Small bowel obstruction: Status: Acute Plan 48-year-old female with history of Crohn's disease (follows with Jessica) and depression admitted for acute Crohns flare with possible partial SBO. #Acute Crohns flare -recent adm with d/c 10/10 for crohns flare and possible partial sbo, continues on PO prednisone -IV methylprednisolone 60mg BID -continue mesalamine and dicyclomine -keep NPO for now, advanced as tolerated per GI -ondansetron p.r.n. -pain management using pain scale -gastroenterology consult -Monitor CBC #? Partial SBO -CT abdomen/pelvis shows mild dilatation of the proximal and mid small bowel loops with air-fluid levels -no ongoing nausea or vomiting. Defer NG tube -keep NPO for now -consider general surgery consult if no improvement # cigarettes smoker -recently quit 1 week ago, declines NRT -smoking cessation counseling, encouraged ongoing cessation DVT prophylaxis-Lovenox Full code Time Spent With Patient Time: Total time managing care of this patient today ____ minutes. Quality Stroke Does the patient have a stroke diagnosis?: No VTE Prior VTE?: No VTE Risk Level:: Medical - moderate - high VTE Device Contraindication: Treatment Not Indicated VTE Drug Contraindication: N/A - Med Ordered
[2023-06-28 10:35] LABS: C Reactive Protein 9.09 mg/dL (< or = 0.50)
[2023-06-28 10:54] LABS: Ferritin 107 ng/mL (10-250); Vitamin D 25-OH Total 40.9 ng/mL (>30)
[2023-06-28] MEDS: methylPREDNISolone Sod Succ 125 MG/2 ML VIAL 40 MG IVPUSH ×2 (11:07→21:08)
[2023-06-28 11:39] LABS: C Reactive Protein 9.21 mg/dL (< or = 0.50)
--- NOTE | 2023-06-28 13:48 | MHC.CLN ---
PT REPORTED 24-33# WT LOSS ON NURSING ADMISSION ASSESSMENT CURRENT WT 68KG PREVIOUS WT 68.9KG 06/24/22 NO SIGNIFICANT WT CHANGES X [address] TO FOLLOW WEEKLY
--- NOTE | 2023-06-28 14:29 | P.CONGS_ITS ---
History of Present Illness Consult details Consult date: 06/28/23 Narrative: 48-year-old female referred for small-bowel obstruction with Crohn's disease. She had been diagnosed to have Crohn's disease of the small bowel starting April 2022. She had been on Lialda but has had been recently admitted the hospital for small-bowel obstruction. She had responded well to steroid treatment. She she had another episode of pain last week along with diarrhea. However, she did not come to the emergency room until the yesterday. She says that she has not had not any bowel movement since yesterday. She says she was vomiting at home yesterday as well. She has had no emesis since admission. She says that her abdominal pain has improved significantly. She has never had any surgery for her disease. She has not been on any biologic therapy. Review of Systems 2 Constitutional: Constitutional: Denies chills and Denies fever(s) Cardiovascular: Cardiovascular: Denies chest pain, Denies dyspnea and Denies dyspnea on exertion Respiratory: Respiratory: Denies cough, Denies dyspnea and Denies dyspnea on exertion Gastrointestinal: Gastrointestinal: Reports hematochezia and Denies change in bowel habits Genitourinary: Genitourinary: Denies hematuria Musculoskeletal: Musculoskeletal: Denies back pain and Denies limited range of motion Neurologic: Denies focal weakness and Denies convulsions Psychiatric: Psychiatric: Denies depression and Denies mood swings PMFSH Past Medical History Medical History Crohn's disease Depression Social History Social History Household Members: Family Household Members Other:: grandmother Housing: House Do you presently have visiting nurse or other home services: No Alcohol intake: former Patient Tobacco Use Status: Former Tobacco user Quit Date: 3 days ago Tobacco use type: Cigarette Cigarette Packs Per Day: 0.5 Cigarettes Per Day: 10.0 Years Smoked: 34 Smoked in Last 30 Days: No Second Hand Smoke Exposure: No Use of substances other than those prescribed or required for medical reasons: No Currently Displaying Signs/Symptoms of Drug Intoxication Withdrawal: No Have you been hit, kicked, punched, or otherwise hurt by someone within the past year? If so, by whom?: No Do you feel safe in your current relationship?: No Current Relationship Is there a partner from a previous relationship who is making you feel unsafe now?: No Are you made to feel afraid or neglected: No Advance Directives: No Advance Directives Information Provided: No Do you have thoughts of harming others: None Do you have a plan to hurt others: No Plan Recently lost weight without trying: Unsure How much weight loss: 24-33 pounds Nutrition Risks: Acute nausea or vomiting x1 week, Anorexia and Poor intake 0- 25% >4 days Patient : No : No Poor oral hygiene: No service: No Meds Allergies Allergy/AdvReac Type Severity Reaction Status Date / Time No Known Allergies Allergy Verified 06/07/23 09:51 [No Known Allergies*] Active Medications: Current Medications Acetaminophen (Acetaminophen 325 Mg Tablet) 650 mg PO Q6H PRN PRN Reason: Pain, Moderate(Pain Scale 4-6) Last Admin: 06/28/23 09:57 Dose: 650 mg Enoxaparin Sodium (Enoxaparin Sodium 40 Mg/0.4 Ml Syringe) 40 mg SUBCUT Q24H [facility] Last Admin: 06/27/23 19:40 Dose: Not Given Lactated Ringer's (Lr) 1,000 mls @ 100 mls/hr IVCONT .Q10H [facility] Last Admin: 06/28/23 05:33 Dose: Not Given Methylprednisolone Sodium Succinate (Methylprednisolone Sod Succ 125 Mg/2 Ml Vial) 40 mg IVPUSH Q12H [facility] Last Admin: 06/28/23 11:07 Dose: 40 mg Morphine Sulfate (Morphine Sulfate 4 Mg/Ml Cartridge) 2 mg IVPUSH Q4H PRN; Protocol PRN Reason: Pain, Severe (Pain Scale 7-10) Last Admin: 06/27/23 23:02 Dose: 2 mg Ondansetron HCl (Ondansetron Hcl 4 Mg/2 Ml Vial) 4 mg IVPUSH Q8H PRN PRN Reason: Nausea and Vomiting Sodium Chloride (0.9 % Sodium Chloride Flush 3 Ml Syringe) 3 ml IVFLUSH QSHIFT [facility] Last Admin: 06/28/23 09:57 Dose: 3 ml Home Medications Medication Instructions Recorded Confirmed Last Taken Type cetirizine 10 mg tablet 10 mg PO DAILY 05/26/23 06/27/23 06/27/23 History dicyclomine 10 mg capsule 20 mg PO QID 05/26/23 06/27/23 06/27/23 History mesalamine 1.2 gram tablet,delayed 1.2 g PO DAILY 05/26/23 06/27/23 06/27/23 History release (Lialda) multivitamin with minerals-folic 2 tab PO DAILY 05/26/23 06/27/23 06/27/23 History acid 200 mcg chewable tablet (Multivitamin Gummies) fluticasone propionate 50 1 spray intranasal DAILY PRN 06/07/23 06/27/23 06/27/23 History mcg/actuation nasal Allergy Symptoms spray,suspension Physical Exam 2 Vital Signs: Vital Signs: Last Vital Signs Temp 97.2 F 06/28/23 07:15 Pulse 82 06/28/23 07:15 Resp 16 06/28/23 07:15 BP 107/57 L 06/28/23 07:15 Pulse Ox 97 06/28/23 07:15 O2 Del Method Room Air 06/28/23 07:15 BMI result Body Mass Index 25.8 Const: General: comfortable and no acute distress O rientation/consciousness: patient oriented x3 Neck: Neck: Yes no lymphadenopathy Resp: Auscultation: clear to auscultation bilaterally Cardio: Rhythm: regular rhythm GI: Other: not distended Palpation (GI): Soft to palpation, Tenderness to palpation present (GI) ( Mild diffuse tenderness) and no guarding Neuro: General: patient oriented x3 Results Labs 07/03/23 08:11 06/28/23 06:30 Labs: Abnormal lab results 06/28/23 06/28/23 Range/Units 06:30 10:57 RBC 3.63 L (4.20-5.50) X10*6/uL Hgb 10.4 L (12.0-16.0) g/dl Hct 31.4 L (37.0-47.0) % MPV 8.9 L (9.4-12.3) fL BUN 7 L (9-16) mg/dL C-Reactive Protein 9.09 H 9.21 H (< or = 0.50) mg/dL Short CBC 06/28/23 Range/Units 06:30 WBC 6.6 (4.8-10.8) X10*3/uL Hgb 10.4 L (12.0-16.0) g/dl Hct 31.4 L (37.0-47.0) % Plt Count 346 (160-400) X10*3/uL BMP 06/28/23 06:30 Sodium 137 Potassium 4.3 Chloride 105 Carbon Dioxide 22 BUN 7 L Creatinine 0.51 Calcium 8.6 D Urine 06/27/23 Range/Units 13:19 Urine Color Yellow Urine Appearance Clear Urine pH 6.0 (5.0-9.0) Ur Specific [place] 1.025 (1.005-1.025) Urine Protein Negative (Neg-Trace) mg/dL Urine Glucose (UA) Negative (Negative) mg/dL All other labs normal. Laboratory Results WBC 6.6 X10*3/uL (4.8-10.8) 06/28/23 06:30 RBC 3.63 X10*6/uL (4.20-5.50) L 06/28/23 06:30 Hgb 10.4 g/dl (12.0-16.0) L 06/28/23 06:30 Hct 31.4 % (37.0-47.0) L 06/28/23 06:30 MCV 86.5 fL (80.0-98.0) 06/28/23 06:30 MCH 28.7 pg (27.0-33.0) 06/28/23 06:30 MCHC 33.1 g/dl (31.0-35.0) 06/28/23 06:30 RDW 14.5 % (11.0-16.0) 06/28/23 06:30 Plt Count 346 X10*3/uL (160-400) 06/28/23 06:30 MPV 8.9 fL (9.4-12.3) L 06/28/23 06:30 Immature Gran % (Auto) 0.2 % (0.0-0.4) 06/28/23 06:30 Neut % (Auto) 57.7 % (45-73) 06/28/23 06:30 Lymph % (Auto) 37.0 % (20-40) 06/28/23 06:30 [place] % (Auto) 4.4 % (2-11) 06/28/23 06:30 Eos % (Auto) 0.2 % (0-4) 06/28/23 06:30 Baso % (Auto) 0.5 % (0-2) 06/28/23 06:30 Lymph # (Auto) 2.4 X10*3/uL (1.2-4.9) 06/28/23 06:30 [place] # (Auto) 0.3 X10*3/uL (0.1-1.2) 06/28/23 06:30 Eos # (Auto) 0.0 X10*3/uL (0.0-0.4) 06/28/23 06:30 Baso # (Auto) 0.0 X10*3/uL (0.0-0.2) 06/28/23 06:30 Abs Immat Gran (auto) 0.01 X10*3/uL (0.00-0.03) 06/28/23 06:30 Absolute Neuts (auto) 3.8 x10*3/uL (2.0-8.3) 06/28/23 06:30 Absolute Nucleated RBC 0.000 X10*3/uL (0.0-0.012) 06/28/23 06:30 Nucleated RBC % (auto) 0.0 /100WBC (0.0-0.2) 06/28/23 06:30 ESR 10 MM/HR (0-20) 06/27/23 11:34 Sodium 137 mmol/L (135-145) 06/28/23 06:30 Potassium 4.3 mmol/L (3.3-5.1) 06/28/23 06:30 Chloride 105 mmol/L (96-108) 06/28/23 06:30 Carbon Dioxide 22 mmol/L (22-29) 06/28/23 06:30 Anion Gap 14 (12-20) 06/28/23 06:30 BUN 7 mg/dL (9-16) L 06/28/23 06:30 Creatinine 0.51 mg/dL (0.5-1.4) 06/28/23 06:30 Estim Creat Clear Calc 127.9 06/28/23 06:30 Estimated GFR > 60 06/28/23 06:30 Random Glucose 101 mg/dL (60-115) 06/28/23 06:30 Lactic Acid 1.0 mmol/L (0.5-2.0) 06/27/23 11:34 Calcium 8.6 mg/dL (8.4-10.2) D 06/28/23 06:30 Magnesium 1.9 mg/dL (1.6-2.6) 06/27/23 11:34 Ferritin 107 ng/mL (10-250) 06/28/23 06:30 Total Bilirubin 0.3 mg/dL (0.0-1.0) 06/27/23 11:34 Direct Bilirubin 0.1 mg/dL (0.0-0.5) 06/27/23 11:34 AST 13 U/L (5-31) 06/27/23 11:34 ALT 18 U/L (0-31) 06/27/23 11:34 Alkaline Phosphatase 83 U/L (39-117) 06/27/23 11:34 Troponin I High Sens < 2.7 ng/L (<3.5-17.0) 06/27/23 11:34 C-Reactive Protein 9.21 mg/dL (< or = 0.50) H 06/28/23 10:57 Total Protein 7.2 g/dL (6.5-8.0) 06/27/23 11:34 Albumin 3.9 g/dL (3.5-5.0) 06/27/23 11:34 Lipase 10 U/L (8-78) 06/27/23 11:34 25-OH Vitamin D Total 40.9 ng/mL (>30) 06/28/23 06:30 Beta HCG, Quant 3 mIU/mL 06/27/23 11:34 Urine Color Yellow 06/27/23 13:19 Urine Appearance Clear 06/27/23 13:19 Urine pH 6.0 (5.0-9.0) 06/27/23 13:19 Ur Specific [place] 1.025 (1.005-1.025) 06/27/23 13:19 Urine Protein Negative mg/dL (Neg-Trace) 06/27/23 13:19 Urine Glucose (UA) Negative mg/dL (Negative) 06/27/23 13:19 Urine Ketones 15 mg/dL (Negative) 06/27/23 13:19 Urine Blood Negative (Negative) 06/27/23 13:19 Urine Nitrite Negative (Negative) 06/27/23 13:19 Ur Leukocyte Esterase Trace (Negative) H 06/27/23 13:19 Urine RBC 0-2 /HPF (0-2) 06/27/23 13:19 Urine WBC 0-5 /HPF (0-5) 06/27/23 13:19 Ur Squamous Epith Cells 0-2 /HPF (0-2) 06/27/23 13:19 Urine Bacteria None Seen (None Seen) 06/27/23 13:19 Hyaline Casts 0-2 /LPF (0-2) 06/27/23 13:19 Impressions Venous Duplex 06/27/23 11:50 IMPRESSION: No DVT demonstrated in the left lower extremity. Abdomen/Pelvis CT 06/27/23 13:35 IMPRESSION: 1. Diffuse mural thickening involving the terminal ileum and a long segment of distal ileum likely secondary to inflammatory bowel disease, likely Crohn's disease. There is mild dilatation of proximal and mid small bowel loops with air-fluid levels. 2. Cholelithiasis without wall thickening. Fleischner guidelines were followed. Assessment and Plan (1) Crohn disease: Status: Acute She has known Crohn's disease and her CAT scan shows dilated small bowel loops along with multiple segments with thickening consistent with acute inflammation with her Crohn's. She currently feels much better. She has had no vomiting since admission yesterday. She denies any passage of flatus however. Her abdominal exam is very benign. I told her to stay NPO for now although she may be able to take some ice chips. Her treatment may need to be escalated so we should consult Gastroenterology for this. I will follow along while she is in the hospital. It does not appear that she will need an NG tube for now. She seems to understand the plan well and is comfortable with this. (2) Small bowel obstruction: Status: Acute Time Spent With Patient Time: Total time managing care of this patient today ____ minutes. Procedures Date of Service Date of Service: 07/03/23
[2023-06-28 15:36] VITALS: BP 124/80; PULSE 78; RESP 18; TEMP 36; O2SAT 96
[2023-06-28 19:34] VITALS: BP 119/66; PULSE 94; RESP 14; TEMP 36.6; O2SAT 98
[2023-06-28] MEDS: Morphine Sulfate 4 MG/ML CARTRIDGE 2 MG IVPUSH (21:08)
[2023-06-29] MEDS: Morphine Sulfate 4 MG/ML CARTRIDGE 2 MG IVPUSH ×2 (01:12→21:00)
[2023-06-29] MEDS: Lactated Ringers 1,000 ML 100 ML IVCONT ×2 (01:13→13:15)
[2023-06-29 03:20] VITALS: BP 110/59; PULSE 82; RESP 14; TEMP 37.1; O2SAT 96
[2023-06-29 07:29] VITALS: BP 130/62; PULSE 65; RESP 20; TEMP 36.5; O2SAT 94
[2023-06-29] MEDS: Acetaminophen 325 MG TABLET 650 MG PO ×2 (07:43→20:57)
[2023-06-29] MEDS: 0.9 % Sodium Chloride Flush 3 ML SYRINGE IVFLUSH ×3 (07:44→21:00)
[2023-06-29 07:59] LABS: HBsAGNum1 0.26 S/CO (0.00-0.99); Hepatitis B Core Antibody Nonreactive (Nonreactive); Hepatitis B Surface Antigen Negative (Negative); ~HepC Num1 0.07 S/CO (0.00-0.79); ~Hepatitis B Surface Antibody NONREACTIVE (Nonreactive); ~Hepatitis C Antibody Nonreactive (Nonreactive)
[2023-06-29 08:00] LABS: Hepatitis A Antibody IgG Nonreactive (Nonreactive); ~Hepatitis A Antibody IgG 0.39 S/CO (0.00-0.99)
--- NOTE | 2023-06-29 10:23 | P.PNIM_ITS ---
Subjective Subjective Date of Service: 06/29/23 Interval History: f/u on crohn's flare she is doing better, had a small bm yesterday Physical Exam 2 Vital Signs: Vital Signs: Last Vital Signs Temp 97.7 F 06/29/23 07:29 Pulse 65 06/29/23 07:29 Resp 20 06/29/23 07:29 BP 130/62 06/29/23 07:29 Pulse Ox 94 06/29/23 07:29 O2 Del Method Room Air 06/29/23 07:29 BMI result Body Mass Index 25.8 Const: Other: General: AO X 3, no acute distress Resp: CTA bilateral CVS: S1,S2,RRR GI: +BS, mid abdominal tenderness Skin: No rash Neuro: motor grossly intact Psych: appropriate affect Objective Data Active Medications Acetaminophen (Acetaminophen 325 Mg Tablet) 650 mg PO Q6H PRN PRN Reason: Pain, Moderate(Pain Scale 4-6) Last Admin: 06/29/23 07:43 Dose: 650 mg Documented By: ROXANE Enoxaparin Sodium (Enoxaparin Sodium 40 Mg/0.4 Ml Syringe) 40 mg SUBCUT Q24H [facility] Last Admin: 06/28/23 19:32 Dose: Not Given Documented By: MAURICIO Non-Admin Reason: Patient Refused Lactated Ringer's (Lr) 1,000 mls @ 100 mls/hr IVCONT .Q10H [facility] Last Admin: 06/29/23 01:13 Dose: 100 mls/hr Documented By: MAURICIO Methylprednisolone Sodium Succinate (Methylprednisolone Sod Succ 125 Mg/2 Ml Vial) 40 mg IVPUSH Q12H [facility] Last Admin: 06/28/23 21:08 Dose: 40 mg Documented By: MAURICIO Morphine Sulfate (Morphine Sulfate 4 Mg/Ml Cartridge) 2 mg IVPUSH Q4H PRN; Protocol PRN Reason: Pain, Severe (Pain Scale 7-10) Last Admin: 06/29/23 01:12 Dose: 2 mg Documented By: MAURICIO Ondansetron HCl (Ondansetron Hcl 4 Mg/2 Ml Vial) 4 mg IVPUSH Q8H PRN PRN Reason: Nausea and Vomiting Sodium Chloride (0.9 % Sodium Chloride Flush 3 Ml Syringe) 3 ml IVFLUSH QSHIFT [facility] Last Admin: 06/29/23 07:44 Dose: 3 ml Documented By: ROXANE Labs 06/28/23 06:30 06/28/23 06:30 Labs: Laboratory Results - last 24 hr 06/27/23 06/28/23 06/28/23 13:19 06:30 10:57 Ferritin 107 C-Reactive Protein 9.09 H 9.21 H 25-OH Vitamin D Total 40.9 Stool Occult Blood Cancelled Hepatitis A IgG Ab Hep Bs Antigen Hep Bs Antibody Hep B Core Total Ab Hepatitis C Ab (EIA) 06/29/23 07:10 Ferritin C-Reactive Protein 25-OH Vitamin D Total Stool Occult Blood Hepatitis A IgG Ab Nonreactive Hep Bs Antigen Negative Hep Bs Antibody NONREACTIVE Hep B Core Total Ab Nonreactive Hepatitis C Ab (EIA) Nonreactive Assessment and Plan (1) Crohn disease: Status: Acute (2) Small bowel obstruction: Status: Acute Plan 48-year-old female with history of Crohn's disease (follows with Jessica) and depression admitted for acute Crohns flare with possible partial SBO. #Acute Crohns flare -recent adm with d/c 06/13 for crohns flare and possible partial sbo, continues on PO prednisone -IV methylprednisolone 60mg BID -continue mesalamine and dicyclomine -keep NPO for now, advanced as tolerated per GI -ondansetron p.r.n. -pain management using pain scale -gastroenterology following, daily crp unchanged - #? Partial SBO -CT abdomen/pelvis shows mild dilatation of the proximal and mid small bowel loops with air-fluid levels -no ongoing nausea or vomiting. Defer NG tube -keep NPO for now - general surgery consult following # cigarettes smoker -recently quit 1 week ago, declines NRT -smoking cessation counseling, encouraged ongoing cessation DVT prophylaxis-Lovenox Full code Time Spent With Patient Time: Total time managing care of this patient today ____ minutes. Quality Stroke Does the patient have a stroke diagnosis?: No VTE Prior VTE?: No VTE Risk Level:: Medical - moderate - high VTE Device Contraindication: Treatment Not Indicated VTE Drug Contraindication: N/A - Med Ordered
--- NOTE | 2023-06-29 10:42 | PM.PNGS ---
Subjective Subjective Date of Service: 06/30/23 Interval history: Says she feels better Still having abdominal pain but much improved Denies passing flatus Denies nausea or vomiting Physical Exam Vital Signs: Vital Signs: Last Vital Signs Temp 97.7 F 06/29/23 07:29 Pulse 65 06/29/23 07:29 Resp 20 06/29/23 07:29 BP 130/62 06/29/23 07:29 Pulse Ox 94 06/29/23 07:29 O2 Del Method Room Air 06/29/23 07:29 BMI result Body Mass Index 25.8 Const: Other: Sitting on recliner General: comfortable and no acute distress Resp: Effort & Inspection: normal respiratory effort Cardio: Rate: regular rate GI: Other: Soft, nondistended, no guarding, no rebound, mild diffuse tenderness Objective Data Active Medications Acetaminophen (Acetaminophen 325 Mg Tablet) 650 mg PO Q6H PRN PRN Reason: Pain, Moderate(Pain Scale 4-6) Last Admin: 06/29/23 07:43 Dose: 650 mg Documented By: ROXANE Enoxaparin Sodium (Enoxaparin Sodium 40 Mg/0.4 Ml Syringe) 40 mg SUBCUT Q24H [facility] Last Admin: 06/28/23 19:32 Dose: Not Given Documented By: MAURICIO Non-Admin Reason: Patient Refused Lactated Ringer's (Lr) 1,000 mls @ 100 mls/hr IVCONT .Q10H [facility] Last Admin: 06/29/23 01:13 Dose: 100 mls/hr Documented By: MAURICIO Methylprednisolone Sodium Succinate (Methylprednisolone Sod Succ 125 Mg/2 Ml Vial) 40 mg IVPUSH Q12H [facility] Last Admin: 06/28/23 21:08 Dose: 40 mg Documented By: MAURICIO Morphine Sulfate (Morphine Sulfate 4 Mg/Ml Cartridge) 2 mg IVPUSH Q4H PRN; Protocol PRN Reason: Pain, Severe (Pain Scale 7-10) Last Admin: 06/29/23 01:12 Dose: 2 mg Documented By: MAURICIO Ondansetron HCl (Ondansetron Hcl 4 Mg/2 Ml Vial) 4 mg IVPUSH Q8H PRN PRN Reason: Nausea and Vomiting Sodium Chloride (0.9 % Sodium Chloride Flush 3 Ml Syringe) 3 ml IVFLUSH QSHIFT [facility] Last Admin: 06/29/23 07:44 Dose: 3 ml Documented By: ROXANE Labs 06/28/23 06:30 06/28/23 06:30 Labs: Laboratory Results - last 24 hr 06/27/23 06/28/23 06/28/23 13:19 06:30 10:57 Ferritin 107 C-Reactive Protein 9.21 H 25-OH Vitamin D Total 40.9 Stool Occult Blood Cancelled Hepatitis A IgG Ab Hep Bs Antigen Hep Bs Antibody Hep B Core Total Ab Hepatitis C Ab (EIA) 06/29/23 07:10 Ferritin C-Reactive Protein 25-OH Vitamin D Total Stool Occult Blood Hepatitis A IgG Ab Nonreactive Hep Bs Antigen Negative Hep Bs Antibody NONREACTIVE Hep B Core Total Ab Nonreactive Hepatitis C Ab (EIA) Nonreactive Procedures Date of Service Date of Service: 06/30/23 Progress Note: A&P Assessment and plan (1) Small bowel obstruction: Status: Acute Assessment and Plan: Clinically looks well Denies flatus however Abdomen soft and benign Okay of sips of clear liquids today and slowly advanced as tolerated GI opinion regarding need to escalate maintenance therapy Will follow-up Time Spent With Patient Time: Total time managing care of this patient today ____ minutes. Quality Stroke Does the patient have a stroke diagnosis?: No VTE Prior VTE?: No VTE Risk Level:: Medical - moderate - high VTE Device Contraindication: Treatment Not Indicated VTE Drug Contraindication: N/A - Med Ordered
[2023-06-29] MEDS: methylPREDNISolone Sod Succ 125 MG/2 ML VIAL 40 MG IVPUSH ×2 (13:15→20:59)
[2023-06-29 15:12] VITALS: BP 109/62; PULSE 71; RESP 18; TEMP 36.2; O2SAT 96
[2023-06-29] MEDS: Enoxaparin Sodium 40 MG/0.4 ML SYRINGE SUBCUT (17:20)
[2023-06-30 02:54] VITALS: BP 102/63; PULSE 89; RESP 18; TEMP 37.1; O2SAT 97
[2023-06-30 07:40] VITALS: BP 137/75; PULSE 70; RESP 20; TEMP 36.6; O2SAT 94
--- NOTE | 2023-06-30 07:40 | P.PNGS_ITS ---
Subjective Subjective Date of Service: 07/03/23 Interval history: Still has occasional pain Denies flatus but does not have any nausea or vomiting Says she had BMs Physical Exam 2 Vital Signs: Vital Signs: Last Vital Signs Temp 98.7 F 06/30/23 02:54 Pulse 89 06/30/23 02:54 Resp 18 06/30/23 02:54 BP 102/63 06/30/23 02:54 Pulse Ox 97 06/30/23 02:54 O2 Del Method Room Air 06/30/23 02:54 BMI result Body Mass Index 25.8 Const: Other: Looks well General: comfortable and no acute distress Resp: Effort & Inspection: normal respiratory effort Cardio: Rate: regular rate GI: Palpation (GI): Soft to palpation, not firm and no guarding Objective Data Active Medications Acetaminophen (Acetaminophen 325 Mg Tablet) 650 mg PO Q6H PRN PRN Reason: Pain, Moderate(Pain Scale 4-6) Last Admin: 06/29/23 20:57 Dose: 650 mg Documented By: SELWYN Enoxaparin Sodium (Enoxaparin Sodium 40 Mg/0.4 Ml Syringe) 40 mg SUBCUT Q24H [facility] Last Admin: 06/29/23 17:20 Dose: 40 mg Documented By: ROXANE Methylprednisolone Sodium Succinate (Methylprednisolone Sod Succ 125 Mg/2 Ml Vial) 40 mg IVPUSH Q12H [facility] Last Admin: 06/29/23 20:59 Dose: 40 mg Documented By: SELWYN Morphine Sulfate (Morphine Sulfate 4 Mg/Ml Cartridge) 2 mg IVPUSH Q4H PRN; Protocol PRN Reason: Pain, Severe (Pain Scale 7-10) Last Admin: 06/29/23 21:00 Dose: 2 mg Documented By: SELWYN Ondansetron HCl (Ondansetron Hcl 4 Mg/2 Ml Vial) 4 mg IVPUSH Q8H PRN PRN Reason: Nausea and Vomiting Sodium Chloride (0.9 % Sodium Chloride Flush 3 Ml Syringe) 3 ml IVFLUSH QSHIFT [facility] Last Admin: 06/29/23 21:00 Dose: 3 ml Documented By: SELWYN Labs 07/03/23 08:11 06/28/23 06:30 Labs: Laboratory Results - last 24 hr 06/29/23 07:10 Hepatitis A IgG Ab Nonreactive Hep Bs Antigen Negative Hep Bs Antibody NONREACTIVE Hep B Core Total Ab Nonreactive Hepatitis C Ab (EIA) Nonreactive Procedures Date of Service Date of Service: 07/03/23 Progress Note: A&P Assessment and plan (1) Crohn disease: Status: Acute Assessment and Plan: Exam remains very benign No nausea or vomiting Looks well Okay to try clear liquids only for now GI following for Crohn's disease Time Spent With Patient Time: Total time managing care of this patient today ____ minutes. Quality Stroke Does the patient have a stroke diagnosis?: No VTE Prior VTE?: No VTE Risk Level:: Medical - moderate - high VTE Device Contraindication: Treatment Not Indicated VTE Drug Contraindication: N/A - Med Ordered
[2023-06-30] MEDS: methylPREDNISolone Sod Succ 125 MG/2 ML VIAL 40 MG IVPUSH ×2 (08:58→23:17)
[2023-06-30] MEDS: 0.9 % Sodium Chloride Flush 3 ML SYRINGE IVFLUSH ×3 (09:03→23:25)
--- NOTE | 2023-06-30 10:40 | MHC.CM.PN ---
EMR REVIEWED, PT W/CROHNS FLARE, ON CLEAR LIQUIDS, PER HOSPITALIST PLAN TO ADVANCE DIET, NO DC AT THIS TIME, CM WILL CONT TO FOLLOW D/C NEEDS.
--- NOTE | 2023-06-30 10:44 | P.PNIM_ITS ---
Subjective Subjective Date of Service: 06/30/23 Interval History: f/u on crohn's flare, doing beter, had diearrhea last night Physical Exam 2 Vital Signs: Vital Signs: Last Vital Signs Temp 97.8 F 06/30/23 07:40 Pulse 70 06/30/23 07:40 Resp 20 06/30/23 07:40 BP 137/75 06/30/23 07:40 Pulse Ox 94 06/30/23 07:40 O2 Del Method Room Air 06/30/23 07:40 BMI result Body Mass Index 25.8 Objective Data Active Medications Acetaminophen (Acetaminophen 325 Mg Tablet) 650 mg PO Q6H PRN PRN Reason: Pain, Moderate(Pain Scale 4-6) Last Admin: 06/29/23 20:57 Dose: 650 mg Documented By: SELWYN Enoxaparin Sodium (Enoxaparin Sodium 40 Mg/0.4 Ml Syringe) 40 mg SUBCUT Q24H [facility] Last Admin: 06/29/23 17:20 Dose: 40 mg Documented By: ROXANE Methylprednisolone Sodium Succinate (Methylprednisolone Sod Succ 125 Mg/2 Ml Vial) 40 mg IVPUSH Q12H [facility] Last Admin: 06/30/23 08:58 Dose: 40 mg Documented By: ROXANE Morphine Sulfate (Morphine Sulfate 4 Mg/Ml Cartridge) 2 mg IVPUSH Q4H PRN; Protocol PRN Reason: Pain, Severe (Pain Scale 7-10) Last Admin: 06/29/23 21:00 Dose: 2 mg Documented By: SELWYN Ondansetron HCl (Ondansetron Hcl 4 Mg/2 Ml Vial) 4 mg IVPUSH Q8H PRN PRN Reason: Nausea and Vomiting Sodium Chloride (0.9 % Sodium Chloride Flush 3 Ml Syringe) 3 ml IVFLUSH QSHIFT [facility] Last Admin: 06/30/23 09:03 Dose: 3 ml Documented By: ROXANE Labs 06/28/23 06:30 06/28/23 06:30 Assessment and Plan (1) Crohn disease: Status: Acute (2) Small bowel obstruction: Status: Acute Plan 48-year-old female with history of Crohn's disease (follows with Jessica) and depression admitted for acute Crohns flare with possible partial SBO. #Acute Crohns flare improving -recent adm with d/c 06/13 for crohns flare and possible partial sbo, continues on PO prednisone - continue IV methylprednisolone 60mg BID -continue mesalamine and dicyclomine -liquid diet -ondansetron p.r.n. -pain management using pain scale -gastroenterology following, daily crp unchanged - # Partial SBO, hd liquid diet overnight, diet as above # cigarettes smoker -recently quit 1 week ago, declines NRT -smoking cessation counseling, encouraged ongoing cessation DVT prophylaxis-Lovenox Full code Time Spent With Patient Time: Total time managing care of this patient today ____ minutes. Quality Stroke Does the patient have a stroke diagnosis?: No VTE Prior VTE?: No VTE Risk Level:: Medical - moderate - high VTE Device Contraindication: Treatment Not Indicated VTE Drug Contraindication: N/A - Med Ordered
[2023-06-30 15:12] VITALS: BP 125/68; PULSE 82; RESP 15; TEMP 36.3; O2SAT 94
[2023-06-30] MEDS: Enoxaparin Sodium 40 MG/0.4 ML SYRINGE SUBCUT (17:36)
[2023-06-30 18:52] VITALS: BP 118/64; PULSE 83; RESP 15; TEMP 36.3; O2SAT 100
[2023-06-30] MEDS: Morphine Sulfate 4 MG/ML CARTRIDGE 2 MG IVPUSH (19:38)
[2023-06-30] MEDS: ondansetron HCL 4 MG/2 ML VIAL IVPUSH (20:08)
[2023-06-30] MEDS: Acetaminophen 325 MG TABLET 650 MG PO (23:22)
[2023-07-01 03:49] VITALS: BP 110/73; PULSE 60; RESP 19; TEMP 36.8; O2SAT 91
[2023-07-01 07:10] VITALS: BP 135/72; PULSE 56; RESP 18; TEMP 36.4; O2SAT 95
--- NOTE | 2023-07-01 09:33 | HO.PM.IMPN ---
Subjective Subjective Date of Service: 07/01/23 Interval History: No pain, no nausea or vomiting, no bowel movment overnight Physical Exam Vital Signs: Vital Signs: Last Vital Signs Temp 97.6 F 07/01/23 07:10 Pulse 56 07/01/23 07:10 Resp 18 07/01/23 07:10 BP 135/72 07/01/23 07:10 Pulse Ox 95 07/01/23 07:10 O2 Del Method Room Air 07/01/23 07:10 BMI result Body Mass Index 25.8 Const: Other: General: AO X 3, no acute distress Resp: CTA bilateral CVS: S1,S2,RRR GI: +BS, NT, no distention Skin: No rash Neuro: motor grossly intact Psych: appropriate affect Objective Data Active Medications Acetaminophen (Acetaminophen 325 Mg Tablet) 650 mg PO Q6H PRN PRN Reason: Pain, Moderate(Pain Scale 4-6) Last Admin: 06/30/23 23:22 Dose: 650 mg Documented By: ELISABETH Enoxaparin Sodium (Enoxaparin Sodium 40 Mg/0.4 Ml Syringe) 40 mg SUBCUT Q24H [facility] Last Admin: 06/30/23 17:36 Dose: 40 mg Documented By: ROXANE Methylprednisolone Sodium Succinate (Methylprednisolone Sod Succ 125 Mg/2 Ml Vial) 40 mg IVPUSH Q12H [facility] Last Admin: 06/30/23 23:17 Dose: 40 mg Documented By: ELISABETH Morphine Sulfate (Morphine Sulfate 4 Mg/Ml Cartridge) 2 mg IVPUSH Q4H PRN; Protocol PRN Reason: Pain, Severe (Pain Scale 7-10) Last Admin: 06/30/23 19:38 Dose: 2 mg Documented By: ELISABETH Ondansetron HCl (Ondansetron Hcl 4 Mg/2 Ml Vial) 4 mg IVPUSH Q8H PRN PRN Reason: Nausea and Vomiting Last Admin: 06/30/23 20:08 Dose: 4 mg Documented By: ELISABETH Sodium Chloride (0.9 % Sodium Chloride Flush 3 Ml Syringe) 3 ml IVFLUSH QSHIFT [facility] Last Admin: 06/30/23 23:25 Dose: 3 ml Documented By: ELISABETH Labs 06/28/23 06:30 06/28/23 06:30 Assessment and Plan (1) Crohn disease: Status: Acute (2) Small bowel obstruction: Status: Acute Plan 48-year-old female with history of Crohn's disease (follows with Jessica) and depression admitted for acute Crohns flare with possible partial SBO. #Acute Crohns flare improving -recent adm with d/c 06/13 for crohns flare and possible partial sbo, continues on PO prednisone - continue IV methylprednisolone 60mg BID -continue mesalamine and dicyclomine -liquid diet and advance as angelina -ondansetron p.r.n. -pain management using pain scale -gastroenterology following, daily crp unchanged - # Partial SBO, advance to full liquid, surgery following # cigarettes smoker -recently quit 1 week ago, declines NRT -smoking cessation counseling, encouraged ongoing cessation DVT prophylaxis-Lovenox, out of bed and amulate Full code Time Spent With Patient Time: Total time managing care of this patient today ____ minutes. Quality Stroke Does the patient have a stroke diagnosis?: No VTE Prior VTE?: No VTE Risk Level:: Medical - moderate - high VTE Device Contraindication: Treatment Not Indicated VTE Drug Contraindication: N/A - Med Ordered
[2023-07-01] MEDS: methylPREDNISolone Sod Succ 125 MG/2 ML VIAL 40 MG IVPUSH ×2 (10:03→22:50)
[2023-07-01] MEDS: Acetaminophen 325 MG TABLET 650 MG PO (10:03)
[2023-07-01] MEDS: 0.9 % Sodium Chloride Flush 3 ML SYRINGE IVFLUSH ×3 (10:04→22:50)
[2023-07-01] MEDS: Morphine Sulfate 4 MG/ML CARTRIDGE 2 MG IVPUSH (15:26)
[2023-07-01 15:35] VITALS: BP 126/63; PULSE 78; RESP 18; TEMP 36.6; O2SAT 92
[2023-07-01] MEDS: Enoxaparin Sodium 40 MG/0.4 ML SYRINGE SUBCUT (18:09)
[2023-07-01 19:57] VITALS: BP 107/62; PULSE 67; RESP 18; TEMP 36.3; O2SAT 99
[2023-07-01 22:28] LABS: TS Negative Control Passed; TS Panel A 0; TS Panel B 2; TS Positive Control Passed; TSpotTB Negative (Negative)
[2023-07-02 02:56] VITALS: BP 130/76; PULSE 58; RESP 20; TEMP 36.1; O2SAT 97
[2023-07-02 07:09] VITALS: BP 135/87; PULSE 67; RESP 20; TEMP 36.7; O2SAT 98
--- NOTE | 2023-07-02 07:19 | P.CDIM_ITS ---
PROVIDER RESPONSE TEXT: To clarify, the appropriate diagnosis supported by the clinical indicators: Other (explain): chroic QUERY TEXT: PHYSICIAN'S DOCUMENTATION REQUEST Date of Query: 06/29/2023 09:36 AM EDT Patient Name: Nuvia Tang Admit Date: 06/27/2023 Dear Enrike Lao, A review of the medical record indicates additional documentation may be needed. Please review below and update the documentation accordingly. Clinical Indicators: H&H on 06/27/23: 12.7/38.6 H&H on 06/28/23: 10.4/31.4 The following diagnoses or signs and symptoms were noted in the patient record: patient is on Lovenox 40 mg sq Q24H Based on the above, could you clarify the appropriate diagnosis, if significant, that supports the ab ove abnormalities and additional evaluation, monitoring, and/or treatment rendered: Anemia, please specify type Adverse effect of anticoagulant Labs indicate a diagnosis of (please specify) Other (explain)Clinically unable to determine (explain)Thank you, Анна Wilkins RN Use of terms such as suspected, likely, concern for, or probable (associated with a specific diagnosi s that is being evaluated, monitored, or treated as if it exists) are acceptable and can be coded in the inpatient se tting, when documented at the time of discharge. Please use your independent medical judgment in providing your response. THIS QUERY IS PART OF THE PERMANENT MEDICAL RECORD
--- NOTE | 2023-07-02 08:37 | P.PNIM_ITS ---
Subjective Subjective Date of Service: 07/02/23 Interval History: No pain, had a bowel movement yesterday but associated with blood Physical Exam 2 Vital Signs: Vital Signs: Last Vital Signs Temp 98.1 F 07/02/23 07:09 Pulse 67 07/02/23 07:09 Resp 20 07/02/23 07:09 BP 135/87 07/02/23 07:09 Pulse Ox 98 07/02/23 07:09 O2 Del Method Room Air 07/02/23 07:09 BMI result Body Mass Index 25.8 Const: Other: General: AO X 3, no acute distress Resp: CTA bilateral CVS: S1,S2,RRR GI: +BS, NT, no distention Skin: No rash Neuro: motor grossly intact Psych: appropriate affect Objective Data Active Medications Acetaminophen (Acetaminophen 325 Mg Tablet) 650 mg PO Q6H PRN PRN Reason: Pain, Moderate(Pain Scale 4-6) Last Admin: 07/01/23 10:03 Dose: 650 mg Documented By: JARET Enoxaparin Sodium (Enoxaparin Sodium 40 Mg/0.4 Ml Syringe) 40 mg SUBCUT Q24H [facility] Last Admin: 07/01/23 18:09 Dose: 40 mg Documented By: JARET Methylprednisolone Sodium Succinate (Methylprednisolone Sod Succ 125 Mg/2 Ml Vial) 40 mg IVPUSH Q12H [facility] Last Admin: 07/01/23 22:50 Dose: 40 mg Documented By: ELISABETH Morphine Sulfate (Morphine Sulfate 4 Mg/Ml Cartridge) 2 mg IVPUSH Q4H PRN; Protocol PRN Reason: Pain, Severe (Pain Scale 7-10) Last Admin: 07/01/23 15:26 Dose: 2 mg Documented By: JARET Ondansetron HCl (Ondansetron Hcl 4 Mg/2 Ml Vial) 4 mg IVPUSH Q8H PRN PRN Reason: Nausea and Vomiting Last Admin: 06/30/23 20:08 Dose: 4 mg Documented By: ELISABETH Sodium Chloride (0.9 % Sodium Chloride Flush 3 Ml Syringe) 3 ml IVFLUSH QSHIFT [facility] Last Admin: 07/01/23 22:50 Dose: 3 ml Documented By: ELISABETH Labs 06/28/23 06:30 06/28/23 06:30 Labs: Laboratory Results - last 24 hr 06/29/23 07:10 TB Test (T-Spot) Com Negative TB Test Nil Control Passed TB Test Panel A 0 TB Test Panel B 2 TB Test Positive Cntrl Passed Assessment and Plan (1) Crohn disease: Status: Acute (2) Small bowel obstruction: Status: Acute Plan 48-year-old female with history of Crohn's disease (follows with Jessica) and depression admitted for acute Crohns flare with possible partial SBO. #Acute Crohns flare improved -continue IV steroid to be changed to prednisone at dischar -continue mesalamine and dicyclomine -will discss with gi # Partial SBO, advance to full liquid, surgery following # cigarettes smoker -recently quit 1 week ago, declines NRT -smoking cessation counseling, encouraged ongoing cessation DVT prophylaxis-Lovenox, out of bed and amulate Full code Time Spent With Patient Time: Total time managing care of this patient today ____ minutes. Quality Stroke Does the patient have a stroke diagnosis?: No VTE Prior VTE?: No VTE Risk Level:: Medical - moderate - high VTE Device Contraindication: Treatment Not Indicated VTE Drug Contraindication: N/A - Med Ordered
[2023-07-02] MEDS: methylPREDNISolone Sod Succ 125 MG/2 ML VIAL 40 MG IVPUSH ×2 (09:08→22:55)
[2023-07-02] MEDS: 0.9 % Sodium Chloride Flush 3 ML SYRINGE IVFLUSH ×2 (09:08→16:51)
[2023-07-02 16:00] VITALS: BP 133/63; PULSE 72; RESP 18; TEMP 36.9; O2SAT 92
[2023-07-02] MEDS: Enoxaparin Sodium 40 MG/0.4 ML SYRINGE SUBCUT (18:18)
[2023-07-02 19:51] VITALS: BP 125/70; PULSE 89; RESP 18; TEMP 37.1; O2SAT 98
[2023-07-03 03:05] VITALS: BP 119/70; PULSE 62; RESP 18; TEMP 36.6; O2SAT 95
[2023-07-03 07:47] VITALS: BP 131/73; PULSE 64; RESP 20; TEMP 36.6; O2SAT 97
[2023-07-03 08:23] LABS: Hematocrit 33.5 % (37.0-47.0); Hemoglobin 11.2 g/dl (12.0-16.0); Mean Corpuscular HGB Conc 33.4 g/dl (31.0-35.0); Mean Corpuscular Hemoglobin 28.4 pg (27.0-33.0); Mean Corpuscular Volume 84.8 fL (80.0-98.0); Mean Platelet Volume 8.5 fL (9.4-12.3); Platelet Count 411 X10*3/uL (160-400); Red Blood Count 3.95 X10*6/uL (4.20-5.50); Red Cell Distribution Width 14.6 % (11.0-16.0); White Blood Count 13.1 X10*3/uL (4.8-10.8)
--- NOTE | 2023-07-03 08:45 | P.PNIM_ITS ---
Subjective Subjective Date of Service: 07/03/23 Interval History: No pain, has fllatus, no bm yesterday, tolerating liquid diet Physical Exam 2 Vital Signs: Vital Signs: Last Vital Signs Temp 97.8 F 07/03/23 07:47 Pulse 64 07/03/23 07:47 Resp 20 07/03/23 07:47 BP 131/73 07/03/23 07:47 Pulse Ox 97 07/03/23 07:47 O2 Del Method Room Air 07/03/23 07:47 BMI result Body Mass Index 25.8 Const: Other: General: AO X 3, no acute distress Resp: CTA bilateral CVS: S1,S2,RRR GI: +BS, NT, no distention Skin: No rash Neuro: motor grossly intact Psych: appropriate affect Objective Data Active Medications Acetaminophen (Acetaminophen 325 Mg Tablet) 650 mg PO Q6H PRN PRN Reason: Pain, Moderate(Pain Scale 4-6) Last Admin: 07/01/23 10:03 Dose: 650 mg Documented By: JARET Enoxaparin Sodium (Enoxaparin Sodium 40 Mg/0.4 Ml Syringe) 40 mg SUBCUT Q24H [facility] Last Admin: 07/02/23 18:18 Dose: 40 mg Documented By: JARET Methylprednisolone Sodium Succinate (Methylprednisolone Sod Succ 125 Mg/2 Ml Vial) 40 mg IVPUSH Q12H [facility] Last Admin: 07/02/23 22:55 Dose: 40 mg Documented By: ANITA Ondansetron HCl (Ondansetron Hcl 4 Mg/2 Ml Vial) 4 mg IVPUSH Q8H PRN PRN Reason: Nausea and Vomiting Last Admin: 06/30/23 20:08 Dose: 4 mg Documented By: ELISABETH Sodium Chloride (0.9 % Sodium Chloride Flush 3 Ml Syringe) 3 ml IVFLUSH QSHIFT [facility] Last Admin: 07/03/23 00:05 Dose: Not Given Documented By: ANITA Non-Admin Reason: Previously Administered Labs 07/03/23 08:11 06/28/23 06:30 Labs: Laboratory Results - last 24 hr 07/03/23 08:11 MCV 84.8 MCH 28.4 MCHC 33.4 RDW 14.6 Plt Count 411 H MPV 8.5 L Absolute Nucleated RBC 0.000 Nucleated RBC % (auto) 0.0 Assessment and Plan (1) Crohn disease: Status: Acute (2) Small bowel obstruction: Status: Acute Plan 48-year-old female with history of Crohn's disease (follows with Jessica) and depression admitted for acute Crohns flare with possible partial SBO. #Acute Crohns flare improved, change to PO steroid -continue mesalamine and dicyclomine -to discuss further care with gi # Partial SBO, advance to regular diet this morning, surgery following # cigarettes smoker -recently quit 1 week ago, declines NRT -smoking cessation counseling, encouraged ongoing cessation DVT prophylaxis-Lovenox, out of bed and amulate Full code Need for inpt: IV steroid for acute crohn's colitis home today if tolerate regular diet Time Spent With Patient Time: Total time managing care of this patient today ____ minutes. Quality Stroke Does the patient have a stroke diagnosis?: No VTE Prior VTE?: No VTE Risk Level:: Medical - moderate - high VTE Device Contraindication: Treatment Not Indicated VTE Drug Contraindication: N/A - Med Ordered
[2023-07-03 09:00] LABS: C Reactive Protein 0.36 mg/dL (< or = 0.50)
[2023-07-03] MEDS: 0.9 % Sodium Chloride Flush 3 ML SYRINGE IVFLUSH (09:16)
[2023-07-03] MEDS: methylPREDNISolone Sod Succ 125 MG/2 ML VIAL 40 MG IVPUSH (09:16)
--- NOTE | 2023-07-03 10:16 | PM.DS ---
DS: Providers Provider Date of Service: 07/03/23 Date of admission: 06/27/23 18:11 Primary care physician: Gwendolyn Luis MD Consults: 06/27/23 18:11 Consult to Gastroenterology Routine Consulting Provider: Marianna Malloy Reason for consultation: crohns flare 06/28/23 11:39 Consult to General Surgery [place]ine [place]ing [place] [facility] [place] [facility] Reason for consultation: Crohn's ? bowel obstruction DS: Diagnosis Discharge Diagnosis (1) Crohn disease: Status: Acute (2) Small bowel obstruction: Status: Acute DS: Summary Hospital Course Hospital Course: Admission HPI abd pain, n/v, brbpr 48-year-old female with history of Crohn's disease (follows with Jessica) and depression presents to the ED earlier today for evaluation of diffuse ongoing abdominal pain. She was recently admitted for a Crohn's flare with discharge on 06/13 and has been taking prednisone daily as well as her dicyclomine on mesalamine as prescribed. She states 5 days ago the pain acutely worsened, reported 06/13 sharp/ripping pain with associated diarrhea and bright red blood per rectum. She states she was having a bowel movement night and syncopized with LOC of unclear duration. She states this recurred the next morning while having a bowel movement but did not seek emergency evaluation. Since then, the severe abdominal pain has persisted with decreased p.o. intake, anorexia, nausea and vomiting. She states the diarrhea has resolved but had soft stool earlier this morning again with bright red blood per rectum. She denies any fevers but feels chills. She has a cigarette smoker but states she has not had any cigarettes in 1 week. Denies any alcohol use or drug use. She tells me she was scheduled to have a colonoscopy on 07/05 with a production supply equipment tender. On arrival, vital stable. Mild leukocytosis of 11.0. No anemia. Renal function and electrolyte levels normal. Hepatic function normal. Troponin undetectable. CRP 8.44, ESR 10. Urinalysis unremarkable. Stool occult blood pending. CT abdomen/pelvis shows diffuse mural thickening involving the terminal ileum and a long segment of the distal ileum likely secondary to inflammatory bowel disease, most likely Crohn's disease. There is mild dilatation of the proximal and mid small bowel loops with air-fluid levels. In the ED, has received 2 L IV NS, 4 mg morphine, 2 mg hydromorphone, ondansetron, 60 mg IV methylprednisolone, and 12.5 mg IV Phenergan. Currently patient reports pain is resolved but still feels very nauseous and with anorexia. Michael. discuss case with Gastroenterology recommending admission for IV steroids. Hospital course: The patient presented with BRBPR (Bright Red Blood Per Rectum) and underwent a workup with a CT scan of the abdomen and pelvis. The CT scan revealed findings consistent with inflammatory bowel disease, most likely Crohn's disease, including diffuse thickening of the terminal and distal ileum. Additionally, there was mild dilatation of the proximal and mid small bowel loops with the presence of air-fluid levels. In response to these findings, the patient was started on IV steroid treatment, placed on NPO status (nothing by mouth), and received hydration. The production supply equipment tender (Dr. Malloy) recommended a course of steroid therapy and regular monitoring of C-reactive protein (CRP) levels, which have since returned to a normal range after peaking at 9 and now measuring less than 0.36. The patient's progress was closely monitored, and she gradually improved, allowing for the advancement of her diet to a regular diet, which she tolerated well. She is having bowel movements and was passing flatus, indicating positive recovery. As part of her ongoing care, the patient has a follow-up appointment scheduled with her production supply equipment tender on July 05, including a planned colonoscopy. Upon her discharge, she will be provided with a Prednisone taper starting at 40 mg weekly, with a gradual reduction of 10 mg per week Time Spent with Patient Time attestation: Total time managing care of this patient today ____ minutes. Discharge coordination time: Greater than 30 minutes Quality: Safe Use of Opioids Does Pt have an Active Cancer Diagnosis on the Problem List?: No Quality: Stroke Does the patient have a stroke diagnosis?: No Physical Exam Vital Signs: Vital Signs: Last Vital Signs Temp 97.8 F 07/03/23 07:47 Pulse 64 07/03/23 07:47 Resp 20 07/03/23 07:47 BP 131/73 07/03/23 07:47 Pulse Ox 97 07/03/23 07:47 O2 Del Method Room Air 07/03/23 07:47 BMI result Body Mass Index 25.8 Const: Other: General: AO X 3, no acute distress Resp: CTA bilateral CVS: S1,S2,RRR GI: +BS, NT, no distention Skin: No rash Neuro: motor grossly intact Psych: appropriate affect DS: Data Data Completed and Pending Labs on day of discharge: Laboratory Results - last 24 hr 07/03/23 08:11 WBC 13.1 H RBC 3.95 L Hgb 11.2 L Hct 33.5 L MCV 84.8 MCH 28.4 MCHC 33.4 RDW 14.6 Plt Count 411 H MPV 8.5 L Absolute Nucleated RBC 0.000 Nucleated RBC % (auto) 0.0 C-Reactive Protein 0.36 Discharge Plan Discharge Anticipated Discharge Date/Time: 07/03/23 12:07 Patient Disposition: Home, Self-Care Discharge Diagnosis: Crohn's flare, acute colitis Referrals: Gwendolyn Luis MD [Primary Care Provider] - 1 Week Discharge Medications: New prednisone 10 mg tablet See Taper PO DIRECTED Qty: 150 0RF Taper: Prednisone 60 mg daily for 7 Days and 0 Hour 50 mg daily for 7 Days and 0 Hour 40 mg daily for 7 Days and 0 Hour 30 mg daily for 7 Days and 0 Hour 20 mg daily for 7 Days and 0 Hour 10 mg daily for 7 Days and 0 Hour Rx Instructions: see taper instructions; Continued cetirizine 10 mg tablet 10 mg PO DAILY dicyclomine 10 mg capsule 20 mg PO QID mesalamine [Lialda] 1.2 gram tablet,delayed release (DR/EC) 1.2 g PO DAILY Multivitamin Gummies 200 mcg Tablet,Chewable 2 tab PO DAILY fluticasone propionate 50 mcg/actuation spray,suspension 1 spray intranasal DAILY PRN (Reason: Allergy Symptoms) Discharge Orders: Discharge Order (Routine); Ordered 07/03/23 Ordered By: Enrike Lao Diet: Advance to usual diet Activity on Discharge: As tolerated Stand Alone Forms: Patient Portal Discharge page Care Plan Goals: full recovery from colitis Health Concerns: colitis due to crohn's disease Plan of Treatment: take Prednisone as directed and follow up with your Gastroenteroligist as previously scheduled.. Assessment: as above Discharge Date/Time: 07/03/23 15:21
--- NOTE | 2023-07-03 10:40 | MHC.CM.PN ---
PER HOSPITALIST DIET ADVANCING, IF PT TOLERATES PT TO BE D/C'D HOME SELF CARE W/DTR FOR TRANSPORT.
--- NOTE | 2023-07-03 13:28 | P.PNGS_ITS ---
Subjective Subjective Date of Service: 07/03/23 Interval history: Feels well Minimal abdominal pain Good flatus Has been tolerating liquid Physical Exam 2 Vital Signs: Vital Signs: Last Vital Signs Temp 97.8 F 07/03/23 07:47 Pulse 64 07/03/23 07:47 Resp 20 07/03/23 07:47 BP 131/73 07/03/23 07:47 Pulse Ox 97 07/03/23 07:47 O2 Del Method Room Air 07/03/23 07:47 BMI result Body Mass Index 25.8 Const: General: comfortable and no acute distress Resp: Effort & Inspection: normal respiratory effort Cardio: Rate: regular rate GI: Palpation (GI): Soft to palpation, not firm, nontender and no guarding Objective Data Active Medications Acetaminophen (Acetaminophen 325 Mg Tablet) 650 mg PO Q6H PRN PRN Reason: Pain, Moderate(Pain Scale 4-6) Last Admin: 07/01/23 10:03 Dose: 650 mg Documented By: JARET Enoxaparin Sodium (Enoxaparin Sodium 40 Mg/0.4 Ml Syringe) 40 mg SUBCUT Q24H [facility] Last Admin: 07/02/23 18:18 Dose: 40 mg Documented By: JARET Methylprednisolone Sodium Succinate (Methylprednisolone Sod Succ 125 Mg/2 Ml Vial) 40 mg IVPUSH Q12H [facility] Last Admin: 07/03/23 09:16 Dose: 40 mg Documented By: MEAGHAN Ondansetron HCl (Ondansetron Hcl 4 Mg/2 Ml Vial) 4 mg IVPUSH Q8H PRN PRN Reason: Nausea and Vomiting Last Admin: 06/30/23 20:08 Dose: 4 mg Documented By: ELISABETH Sodium Chloride (0.9 % Sodium Chloride Flush 3 Ml Syringe) 3 ml IVFLUSH QSHIFT [facility] Last Admin: 07/03/23 09:16 Dose: 3 ml Documented By: MEAGHAN Labs 07/03/23 08:11 06/28/23 06:30 Labs: Laboratory Results - last 24 hr 07/03/23 08:11 MCV 84.8 MCH 28.4 MCHC 33.4 RDW 14.6 Plt Count 411 H MPV 8.5 L Absolute Nucleated RBC 0.000 Nucleated RBC % (auto) 0.0 C-Reactive Protein 0.36 Procedures Date of Service Date of Service: 07/03/23 Progress Note: A&P Assessment and plan (1) Small bowel obstruction: Status: Acute Assessment and Plan: Symptoms have resolved Diet as tolerated She looks well and exam remains benign Okay to DC home She has a follow-up with her manager document She may benefit from escalation of her maintenance therapy for Crohn's disease Time Spent With Patient Time: Total time managing care of this patient today ____ minutes. Quality Stroke Does the patient have a stroke diagnosis?: No VTE Prior VTE?: No VTE Risk Level:: Medical - moderate - high VTE Device Contraindication: Treatment Not Indicated VTE Drug Contraindication: N/A - Med Ordered
== END 2023-07-03 15:21 | disposition home or self-care (01) | DRG 245 ==
LOC: HO.ED 17:44 → HO.EDOVER 18:16 → HO.IMC 21:16
PROVIDERS: Internal Medicine; Physician Assistant Medical; Admitting Provider Physician Assistant; Emergency Provider Emergency Medicine; PCP Internal Medicine; Visit Provider Internal Medicine
DX: K50.012 Crohn's disease of small intestine with intestinal obstruction (principal); D64.9 Anemia, unspecified; K50.011 Crohn's disease of small intestine with rectal bleeding; Z87.891 Personal history of nicotine dependence; Z79.899 Other long term (current) drug therapy
CPT/HCPCS: 36415; 74177; 80048; 80076; 81001; 82306; 82728; 83605; 83690; 83735; 84484; 84702; 85025; 85027; 85652; 86140; 86481; 86704; 86706; 86708; 86803; 87340; 93971; 99285; J1170; J1650; J2270; J2405; J2550; J2930; Q9967

== ENCOUNTER → 2023-06-27 18:11 | Outpatient (BNV) | payer OTHER, SELFPAY | PROVIDERS: Admitting Provider Physician Assistant; Emergency Provider Emergency Medicine; PCP Internal Medicine; Visit Provider Surgery | DX: K50.90 Crohn's disease, unspecified, without complications (principal); K56.609 Unspecified intestinal obstruction, unspecified as to partial versus complete obstruction | CPT/HCPCS: 99222; 99232 ==

== ENCOUNTER → 2023-06-27 18:11 | Outpatient (BNV) | payer OTHER, SELFPAY | PROVIDERS: Admitting Provider Physician Assistant; Emergency Provider Emergency Medicine; PCP Internal Medicine; Visit Provider Physician Assistant | DX: K50.90 Crohn's disease, unspecified, without complications (principal); K56.609 Unspecified intestinal obstruction, unspecified as to partial versus complete obstruction | CPT/HCPCS: 99223; 99232; 99239 ==

== ENCOUNTER → 2023-06-27 18:11 | Outpatient (BNV) | payer OTHER, SELFPAY | PROVIDERS: Admitting Provider Physician Assistant; Emergency Provider Emergency Medicine; PCP Internal Medicine; Visit Provider Internal Medicine | DX: K50.90 Crohn's disease, unspecified, without complications (principal); K56.609 Unspecified intestinal obstruction, unspecified as to partial versus complete obstruction | CPT/HCPCS: 99223 ==

== ENCOUNTER 2023-08-24 21:57 | Emergency (ER) | payer OTHER, SELFPAY ==
--- NOTE | ~2023-08-24 | XR_ITS ---
EXAMINATION: XR LUMBOSACRAL SPINE CLINICAL INFORMATION: Back pain COMPARISON: 09/22/2021 06/27/2023 TECHNIQUE: Three views of the lumbosacral spine. FINDINGS: Moderate to severe degenerative disc disease at L5-S1 with loss of vertebral disc height, endplate osteophytes, and endplate sclerosis. Other levels appear relatively well-preserved, as do the facet joints. Vertebral body heights are normal. No fracture or spondylolisthesis. SI joints are unremarkable. No acute osseous findings. Soft tissues are unremarkable. XR/XR lumbar spine 2-3V IMPRESSION: Moderate to severe degenerative disc disease at L5-S1. No acute osseous findings.
--- NOTE | ~2023-08-24 | CT_ITS ---
EXAMINATION: HEAD CT WITHOUT CONTRAST CERVICAL SPINE CT WITHOUT CONTRAST CLINICAL INFORMATION: Head trauma, moderate COMPARISON: 06/24/2022 TECHNIQUE: Contiguous axial imaging of the head was performed without the administration of IV contrast. Axial multidetector volumetric images were also performed through the cervical spine without intravenous contrast. Multiplanar reconstructed images in coronal and sagittal orientations were submitted. This CT examination was performed using dose optimization techniques as appropriate, variously including the following: *Automated exposure control *Adjustment of mA and/or kV according to patient size (this includes techniques or standardized protocols for targeted exams where dose is matched to indication/reason for exam; i.e. extremities or head) *Use of iterative reconstruction technique DOSE: 919 mGy-cm FINDINGS: HEAD: There is no evidence of acute intracranial hemorrhage or territorial infarction. No abnormal mass-effect or midline shift. No extra-axial fluid collections. Massey to white matter differentiation is well preserved. The ventricles are normal in size and configuration. There is no abnormal attenuation within the brain parenchyma. The soft tissues and osseous structures are normal. The sinuses and mastoid air cells are clear. CERVICAL SPINE: Vertebral body heights are normal. No fractures of the vertebral bodies or posterior elements. Vertebral alignment is normal. No subluxation. The craniocervical and atlantoaxial articulations are normal. Intervertebral disc heights are normal. No significant degenerative disc disease. Facet joints are normal. Central canal and neural foramina appear patent without appreciable stenoses. No significant paravertebral soft tissue swelling. Cervical soft tissues are unremarkable. Imaged portions of the lung apices are clear. CT/CT cervical spine wo IV con IMPRESSION: 1. No acute intracranial pathology. 2. No acute fracture or malalignment in the cervical spine.
[2023-08-24 22:07] VITALS: BP 134/76; BP 134/79; PULSE 107; PULSE 83; RESP 18; TEMP 36.9; BMI 21.5
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
[2023-08-24] MEDS: Acetaminophen 325 MG TABLET 975 MG PO (22:59)
[2023-08-24] MEDS: diazePAM 2 MG TABLET 5 MG PO (22:59)
== END 2023-08-25 00:06 | disposition home or self-care (01) ==
PROVIDERS: Emergency Provider Emergency Medicine; PCP Internal Medicine
DX: S13.4XXA Sprain of ligaments of cervical spine, initial encounter (principal); S09.90XA Unspecified injury of head, initial encounter; R51.9 Headache, unspecified; M54.2 Cervicalgia; M54.50 Low back pain, unspecified; V43.52XA Car driver injured in collision with other type car in traffic accident, initial encounter; Y93.89 Activity, other specified; Y92.410 Unspecified street and highway as the place of occurrence of the external cause; Y99.9 Unspecified external cause status
CPT/HCPCS: 70450; 72100; 72125; 99283; 99284

== ENCOUNTER 2023-11-01 09:59 | Inpatient (IN) | payer OTHER, SELFPAY ==
[2023-11-01] VITALS (7 sets, daily range): BP systolic 97–118; BP diastolic 47–84; PULSE 68–88; RESP 16–20; TEMP 36.6–36.8; O2SAT 95–98; BMI 23.9
--- NOTE | ~2023-11-01 | CT_ITS ---
EXAMINATION: CT ABDOMEN AND PELVIS WITH CONTRAST CLINICAL INFORMATION: COMPARISON: Previous CT of the abdomen and pelvis June 26 TECHNIQUE: Multidetector volumetric images were obtained from the superior aspect of the liver through the pubic symphysis following administration 85 mL of Omnipaque 350 intravenous contrast. Sagittal and coronal reformatted images were obtained on the technologist's workstation. Oral contrast: Yes This CT examination was performed using dose optimization techniques as appropriate, variously including the following: *Automated exposure control *Adjustment of mA and/or kV according to patient size (this includes techniques or standardized protocols for targeted exams where dose is matched to indication/reason for exam; i.e. extremities or head) *Use of iterative reconstruction technique DLP: 430 mGy-cm FINDINGS: LUNG BASES: The visualized lung bases are unremarkable. LIVER, GALLBLADDER, AND BILIARY TREE: The liver is normal in size, shape, and attenuation. No focal hepatic lesion or biliary ductal dilatation is present. Gallstone. PANCREAS: Unremarkable. SPLEEN: Unremarkable. ADRENAL GLANDS: Unremarkable. KIDNEYS AND URETERS: The kidneys are normal in size, shape, and attenuation. No hydronephrosis, hydroureter, or calculi seen. No perinephric stranding. BLADDER: Unremarkable. GASTROINTESTINAL TRACT: Markedly dilated fluid-filled small bowel. Long segment distal ileum stricture with wall thickening and mucosal enhancement sparing the terminal ileum. This is similar in distribution to June 2023 exam. Large bowel under distended difficult to evaluate. Question wall thickening of the rectum. 1 x 2 cm air collection or outpouching arising from the right lateral lower rectum. This is new from June 2023 exam. Small amount of fluid in the pelvis. Normal appendix. Normal stomach. ABDOMINAL WALL: No significant hernia is appreciated. LYMPH NODES: Enlarged mesenteric lymph nodes largest node measures 1.4 cm in short axis VASCULAR: Unremarkable. PELVIC VISCERA: Unremarkable. OSSEOUS STRUCTURES: Degenerative disc disease at L5-S1. CT/CT abdomen pelvis w IV con IMPRESSION: Distal small bowel obstruction from distal ileal long segment stricture sparing the terminal ileum. This is similar location to June 2023 and suggestive of active inflammatory bowel disease. Large bowel is distended and difficult to evaluate. 1 x 2 cm air collection or outpouching arising from the right lower lateral wall of the rectum from June 2023 exam. Enlarged mesenteric lymph nodes. Ascites. Gallstones. Fleischner guidelines were followed.
[2023-11-01] MEDS: 0.9 % Sodium Chloride 1,000 ML 999 ML IV ×2 (11:45→12:46)
[2023-11-01 11:46] LABS: MANUAL DIFF FLAG NO
[2023-11-01 11:47] LABS: Basophils Percent Auto 0.4 % (0-2); Eosinophils Absolute Auto 0.2 X10*3/uL (0.0-0.4); Hematocrit 33.5 % (37.0-47.0); Hemoglobin 11.1 g/dl (12.0-16.0); Imm Gran Abs Auto 0.03 X10*3/uL (0.00-0.03); Imm Gran Pct Auto 0.3 % (0.0-0.4); Lymphocytes Absolute Auto 4.6 X10*3/uL (1.2-4.9); Lymphocytes Percent Auto 42.6 % (20-40); Mean Corpuscular HGB Conc 33.1 g/dl (31.0-35.0); Mean Corpuscular Hemoglobin 29.2 pg (27.0-33.0); Mean Corpuscular Volume 88.2 fL (80.0-98.0); Mean Platelet Volume 8.6 fL (9.4-12.3); Monocytes Absolute Auto 0.5 X10*3/uL (0.1-1.2); Monocytes Percent Auto 4.2 % (2-11); Neutrophils Absolute Auto 5.4 x10*3/uL (2.0-8.3); Neutrophils Percent Auto 50.5 % (45-73); Platelet Count 447 X10*3/uL (160-400); Red Cell Distribution Width 14.4 % (11.0-16.0); White Blood Count 10.8 X10*3/uL (4.8-10.8)
[2023-11-01] MEDS: ondansetron HCL 4 MG/2 ML VIAL IVPUSH (11:47)
--- NOTE | 2023-11-01 11:48 | ED.ABDPAIN ---
HPI - Abdominal Pain General Chief Complaint: General Medical Stated Complaint: ABD PAIN,N/V,LAST BM 4DAYS AGO,D/C 4DAYS AGO Time Seen by Provider: 11/01/23 10:47 Source: patient, family and old records reviewed Mode of arrival: ambulatory Limitations: no limitations History of Present Illness HPI narrative: 48 yo female with PMH of Crohns on Humira managed at [facility] she was admitted to [facility] Wed to Sun with SBO no surgery done treated with IV antibiotics and steroids - DC home on augmentin but not sure why. She was discharge on Monday after she had BM and passed flatus. She notes Monday night she started to have pain again and has had n/v and upper abdominal pain without a BM or flatus since then. She is worried as she cannot keep anything down since Monday and thinks she is obstructed again. EMS notes patient tried to stand up and passed out. primary GI Jamal HUNT at [place] MD elicited complaint: abdominal pain Pertinent past history: other (Crohns) Onset (ago): day(s) (Monday) Pain Consistency: constant Location: diffuse and epigastric Severity: severe Quality: aching and fullness Radiation: none Migration to: no migration Exacerbating factors: eating, medication and movement Relieving factors: nothing Context: recent antibiotic use and history of similar episodes Associated symptoms: nausea, vomiting and syncope Related Data Home Medications Medication Instructions Recorded Confirmed cetirizine 10 mg tablet 10 mg PO DAILY 05/26/23 06/27/23 dicyclomine 10 mg capsule 20 mg PO QID 05/26/23 06/27/23 mesalamine 1.2 gram tablet,delayed 1.2 g PO DAILY 05/26/23 06/27/23 release (Lialda) multivitamin with minerals-folic 2 tab PO DAILY 05/26/23 06/27/23 acid 200 mcg chewable tablet (Multivitamin Gummies) fluticasone propionate 50 1 spray intranasal DAILY PRN 06/07/23 06/27/23 mcg/actuation nasal Allergy Symptoms spray,suspension Previous Rx's Medication Instructions Recorded prednisone 10 mg tablet See Taper PO DIRECTED #150 tabs 07/03/23 cyclobenzaprine 10 mg tablet 10 mg PO TID PRN muscle spasm #20 08/24/23 tabs lidocaine 5 % topical patch 1 patch topical DAILY #30 ea 08/24/23 Allergies Allergy/AdvReac Type Severity Reaction Status Date / Time No Known Allergies Allergy Verified 08/24/23 22:17 [No Known Allergies*] Review of Systems Review of Systems Constitutional : No Weight loss, No Fever, No Chills ENT/Mouth : No sore throat, No Rhinorrhea Eyes: No Swelling, No Redness Cardiovascular : No Chest Pain, No SOB, NoEdema Respiratory : No Cough, No Sputum, No Wheezing Gastrointestinal : Positive Nausea, Positive Vomiting, no Diarrhea, positive abdominal Pain, No Hematochezia, No Melena Genitourinary : No Dysuria, No Urinary Frequency, No Hematuria, No Urgency Musculoskeletal : No joint pain, No Myalgias, No Joint Swelling Skin : No Skin Lesions, No rash Neuro : pos Weakness, No Numbness, No Dizziness, No Headache, pos syncope Psych : No Anxiety/Panic, No Depression Heme/Lymph: No Bruising, No Lymphadenopathy Endocrine : No Polyuria, No Polydipsia All other systems reviewed and are negative. [facility] Past Medical History Attestation statement: The following information was validated with the patient. Source: old records reviewed Medical History Crohn's disease Depression Social History Social History Household Members: Family Household Members Other:: grandmother Housing: House Do you presently have visiting nurse or other home services: No Alcohol intake: former Comment: pt refuses alarms Patient Tobacco Use Status: Former Tobacco user Quit Date: 3 days ago Tobacco use type: Cigarette Cigarette Packs Per Day: 0.5 Cigarettes Per Day: 10.0 Years Smoked: 34 Smoked in Last 30 Days: Yes Second Hand Smoke Exposure: No Use of substances other than those prescribed or required for medical reasons: No Advance Directives: No service: No Physical Exam ED Vital Signs: Vital Signs - 24 hr 11/01/23 10:06 Temperature 97.9 F Pulse Rate 88 Respiratory Rate 20 Blood Pressure 107/63 Pulse Oximetry 98 Oxygen Delivery Method Room Air BMI result Body Mass Index 23.9 Appearance: Alert. Oriented X3. appears uncomfortable mild acute distress. Eyes: Pupils equal, round and reactive to light. ENT: Pharynx dry MM Neck: Normal inspection. Neck supple. CVS: Normal heart rate and rhythm. Pulses normal. Respiratory: No respiratory distress. Breath sounds normal. Abdomen: Mild distention no rebound but diffuse ttp and vol guarding Skin: Skin warm and dry. pale skin color. Normal skin turgor. Extremities: No lower extremity edema. No calf ttp Neuro: Oriented X 3. No motor deficit. No sensory deficit. Course Course Course Narrative: refusing NG tube Reevaluation(s) Reevaluation #1: pain improved with IV dilaudid Reevaluation #2: she refuses NG tube Dr. Clinton aware IV steroids ordered - Dr. Winters aware Reevaluation #3: review of [facility] records SBO felt to be due to Crohns but also ileitis treated with augmentin 1 week but also recommended prednisone taper patient notes she never got this Rx. Medical Decision Making Medical Decision Making [facility] Narrative: 48 yo female with PMH Crohns on Humiria no prior surgeries here with c/o no BM, no flatus worsening pain, n/v and worried she is obstructed after recent SBO she reports at [facility] this past W-F. At this time she is on augmentin as well but unsure why. Will need labs, records from [facility], IV dilaudid for pain. CT scan for worsening disease, colitis, SBO. Differential Diagnosis Differential Diagnoses: The differential diagnosis associated with the presentation includes Crohns disease, SBO, colitis Admission/Observation Consideration of admission/observation: Escalation of care including admission/observation considered notified Dr. Clinton Consult Healthcare Provider Management of the patient was discussed with: Hospitalist (Dr. Papi mack will admit) and [employer] Software Qa Engineer notified Dr. Clinton notified Dr. Winters Lab Data [facility] Lab Attestation statement: I reviewed the patient's lab results. 11/01/23 11:42 11/01/23 11:42 Labs: Lab Results 11/01/23 Range/Units 11:42 WBC 10.8 (4.8-10.8) X10*3/uL RBC 3.80 L (4.20-5.50) X10*6/uL Hgb 11.1 L (12.0-16.0) g/dl Hct 33.5 L (37.0-47.0) % MCV 88.2 (80.0-98.0) fL MCH 29.2 (27.0-33.0) pg MCHC 33.1 (31.0-35.0) g/dl RDW 14.4 (11.0-16.0) % Plt Count 447 H (160-400) X10*3/uL MPV 8.6 L (9.4-12.3) fL Immature Gran % (Auto) 0.3 (0.0-0.4) % Neut % (Auto) 50.5 (45-73) % Lymph % (Auto) 42.6 H (20-40) % Dale % (Auto) 4.2 (2-11) % Eos % (Auto) 2.0 (0-4) % Baso % (Auto) 0.4 (0-2) % Lymph # (Auto) 4.6 (1.2-4.9) X10*3/uL Dale # (Auto) 0.5 (0.1-1.2) X10*3/uL Eos # (Auto) 0.2 (0.0-0.4) X10*3/uL Baso # (Auto) 0.0 (0.0-0.2) X10*3/uL Abs Immat Gran (auto) 0.03 (0.00-0.03) X10*3/uL Absolute Neuts (auto) 5.4 (2.0-8.3) x10*3/uL Absolute Nucleated RBC 0.000 (0.0-0.012) X10*3/uL Nucleated RBC % (auto) 0.0 (0.0-0.2) /100WBC ESR 26 H (0-20) MM/HR Sodium 137 (135-145) mmol/L Potassium 3.8 (3.3-5.1) mmol/L Chloride 100 (96-108) mmol/L Carbon Dioxide 29 (22-29) mmol/L Anion Gap 12 (12-20) BUN 9 (9-16) mg/dL Creatinine 0.61 (0.5-1.4) mg/dL Estim Creat Clear Calc 97.3 Estimated GFR > 60 Random Glucose 92 (60-115) mg/dL Lactic Acid 0.9 (0.5-2.0) mmol/L Calcium 9.6 D (8.4-10.2) mg/dL Magnesium 1.8 (1.6-2.6) mg/dL Total Bilirubin 0.2 (0.0-1.0) mg/dL Direct Bilirubin < 0.2 (0.0-0.5) mg/dL AST 18 (5-31) U/L ALT 14 (0-31) U/L Alkaline Phosphatase 61 (39-117) U/L C-Reactive Protein 0.72 H (< or = 0.50) mg/dL Total Protein 6.3 L (6.5-8.0) g/dL Albumin 3.5 (3.5-5.0) g/dL Lipase 8 (8-78) U/L Independent Interpretation I performed an independent interpretation of an: CT Scan (SBO, rectal lesion) Radiology Impression Discussion of test interpretation with radiology: I have reviewed the radiologist's reading. Independent Historian Clinical information obtained from an independent historian. History obtained from or confirmed by: Friend External Record Review External record reviewed: Inpatient record and Outpatient record Medications Administered Discontinued Medications Generic Name Dose Route Start Last Admin Trade Name Freq PRN Reason Stop Dose Admin Hydromorphone HCl 1 mg 11/01/23 10:57 11/01/23 11:50 Hydromorphone Hcl 1 Mg/Ml Syringe IVPUSH 11/01/23 10:58 1 mg ONCE ONE Administration Protocol Hydromorphone HCl 0.5 mg 11/01/23 14:21 11/01/23 15:04 Hydromorphone Hcl 0.5 Mg/0.5 Ml Syringe IVPUSH 11/01/23 14:22 0.5 mg ONCE ONE Administration Protocol Sodium Chloride 1,000 mls @ 999 mls/hr 11/01/23 11:00 11/01/23 12:44 Ns IV 11/01/23 12:00 Infused .Q1H1M ALONDRA Infusion Sodium Chloride 1,000 mls @ 999 mls/hr 11/01/23 12:00 11/01/23 14:53 Ns IV 11/01/23 13:00 Infused .Q1H1M ALONDRA Infusion Iohexol 100 ml 11/01/23 12:30 11/01/23 12:33 Iohexol 350 Mg/Ml 100 Ml Infus..Btl IV 11/01/23 12:31 85 ml ONCE ONE Administration Methylprednisolone Sodium Succinate 60 mg 11/01/23 14:42 11/01/23 15:02 Methylprednisolone Sod Succ 125 Mg/2 Ml Vial IVPUSH 11/01/23 14:43 60 mg ONCE ONE Administration Ondansetron HCl 4 mg 11/01/23 10:57 11/01/23 11:47 Ondansetron Hcl 4 Mg/2 Ml Vial IVPUSH 11/01/23 10:58 4 mg ONCE ONE Administration Critical Care Time Critical Care Time Critical Care Time: Yes Total Critical Care Time: 45 Attestation: repeat IV pain medications, pain improved, IVF, medical consult I attest to this time spent taking care of the patient Discharge Plan Discharge Clinical Impression: SBO (small bowel obstruction) Crohn disease Qualifiers: Gastrointestinal tract location: small intestine Digestive disease complication type: with intestinal obstruction Qualified Code(s): K50.012 - Crohn's disease of small intestine with intestinal obstruction Vomiting Qualifiers: Vomiting type: unspecified Nausea presence: with nausea Qualified Code(s): R11.2 - Nausea with vomiting, unspecified Patient Disposition: Admitted As Inpatient
[2023-11-01] MEDS: HYDROmorphone HCl 1 MG/ML SYRINGE IVPUSH ×2 (11:50→19:17)
--- NOTE | 2023-11-01 11:50 | ECG_ITS ---
Test Reason : DIZZINESS Blood Pressure : / mmHG Vent. Rate : 075 BPM Atrial Rate : 075 BPM P-R Int : 142 ms QRS Dur : 062 ms QT Int : 372 ms P-R-T Axes : 040 027 035 degrees QTc Int : 415 ms Normal sinus rhythm Normal ECG No significant changes when compared with the previous EKG of 20 may 2015 Referred By: Alpa Allen Electronically Signed By:ABBY CARROLL
[2023-11-01 11:58] LABS: Lactic Acid 0.9 mmol/L (0.5-2.0)
[2023-11-01 12:04] LABS: Alanine Aminotransferase 14 U/L (0-31); Albumin Level 3.5 g/dL (3.5-5.0); Alkaline Phosphatase 61 U/L (39-117); Anion Gap 12 (12-20); Aspartate Amino Transferase 18 U/L (5-31); Bilirubin Direct < 0.2 mg/dL (0.0-0.5); Bilirubin Total 0.2 mg/dL (0.0-1.0); Blood Urea Nitrogen 9 mg/dL (9-16); C Reactive Protein 0.72 mg/dL (< or = 0.50); Calcium 9.6 mg/dL (8.4-10.2); Carbon Dioxide 29 mmol/L (22-29); Chloride 100 mmol/L (96-108); Creatinine Clr Calc Pharmacy 97.3; Estimated Glomerular Filt Rate > 60; Glucose Random 92 mg/dL (60-115); Lipase 8 U/L (8-78); Magnesium 1.8 mg/dL (1.6-2.6); Potassium 3.8 mmol/L (3.3-5.1); Sodium 137 mmol/L (135-145); Total Protein 6.3 g/dL (6.5-8.0)
--- NOTE | 2023-11-01 12:21 | PC.NURSE ---
pt a&o x4, pleasant, tearful, but cooperative. 20G IV placed to RAC, fluids hung and pt medicated per nov. pt reported immediate pain relief from pain medication going from 06/13 [address] scan deysi. does not appear in any distress anymore. resting quietly on stretcher, rr even/unlabored. plan of care ongoing.
[2023-11-01 12:26] LABS: Erythrocyte Sedimentation Rate 26 MM/HR (0-20)
[2023-11-01] MEDS: iohexoL 350 MG/ML 100 ML INFUS..BTL IV (12:33)
[2023-11-01] MEDS: methylPREDNISolone Sod Succ 125 MG/2 ML VIAL 60 MG IVPUSH (15:02)
[2023-11-01] MEDS: HYDROmorphone HCl 0.5 MG/0.5 ML SYRINGE IVPUSH (15:04)
--- NOTE | 2023-11-01 15:05 | P.HPHOSP_ITS ---
History of Present Illness Date of Service: 11/01/23 Chief Complaint: abd pain 48-year-old woman with history of Crohn's disease, recently diagnosed in 2022 presenting with pain, nausea, vomiting without bowel movement or flatus. She has been unable to keep any food or fluids down since Monday. She was treated at [facility] from 10/25-10/29 for Crohn's flare. She was treated with antibiotics, NGT, steroids and she was discharged home on Monday but still felt unwell patient reported that she was supposed to get prednisone but was never prescribed it. In the ER, Vital signs stable, labs all within acceptable limits, abdominal CT showing distal small-bowel obstruction suggestive of active inflammatory bowel disease with large bowel distended. Plan for NG tube placement in the ER. Plan is to admit patient for further management and treatment of acute Crohn's flare with small-bowel obstruction. Review of Systems 2 Review of Systems: Denies any recent fever chills or decrease in appetite respiratory denies any shortness of breath or cough cardiovascular denied chest pain gastrointestinal See HPI genitourinary denies any dysuria frequency or hematuria musculoskeletal denies any joint pain or swelling neuropsych denies any weakness or seizures all other systems reviewed are negative [facility] Medical History Crohn's disease Depression Social History Household Members: Family Household Members Other:: grandmother Housing: House Do you presently have visiting nurse or other home services: No Alcohol intake: former Comment: pt refuses alarms Patient Tobacco Use Status: Former Tobacco user Quit Date: 3 days ago Tobacco use type: Cigarette Cigarette Packs Per Day: 0.5 Cigarettes Per Day: 10.0 Years Smoked: 34 Smoked in Last 30 Days: Yes Second Hand Smoke Exposure: No Use of substances other than those prescribed or required for medical reasons: No Advance Directives: No service: No Meds Allergies Allergy/AdvReac Type Severity Reaction Status Date / Time No Known Allergies Allergy Verified 08/24/23 22:17 [No Known Allergies*] Active Medications: Current Medications Lactated Ringer's (Lr) 1,000 mls @ 100 mls/hr IVCONT .Q10H [facility] Home Medications Medication Instructions Recorded Confirmed Last Taken Type multivitamin with minerals-folic 2 tab PO DAILY 05/26/23 11/01/23 06/27/23 History acid 200 mcg chewable tablet (Multivitamin Gummies) acetaminophen 325 mg tablet 650 mg PO QID PRN Pain 11/01/23 11/01/23 Unknown History adalimumab 40 mg/0.8 mL 40 mg subcut Q2W 11/01/23 11/01/23 10/20/23 History subcutaneous syringe kit (Humira) ascorbic acid (vitamin C) 100 mg 100 mg PO DAILY 11/01/23 11/01/23 Unknown History tablet (Vitamin C) cholecalciferol (vitamin D3) 10 10 mcg PO DAILY 11/01/23 11/01/23 Unknown History mcg (400 unit) tablet (Vitamin D3) cyanocobalamin (vitamin B-12) 1,000 mcg PO DAILY 11/01/23 11/01/23 Unknown History 1,000 mcg tablet Physical Exam 2 Vital Signs and Narrative: Vital Signs: Last Vital Signs Temp 97.9 F 11/01/23 10:06 Pulse 88 11/01/23 10:06 Resp 20 11/01/23 10:06 BP 107/63 11/01/23 10:06 Pulse Ox 98 11/01/23 10:06 O2 Del Method Room Air 11/01/23 10:06 BMI result Body Mass Index 23.9 Appearing in no acute distress head is normocephalic atraumatic eyes pupils are PERRLA sclera is anicteric mouth throat mucous membranes are intact and moist neck is supple no lymphadenopathy, no JVD noted lung sounds are clear to auscultation heart regular rate rhythm, clear S1, S2 positive bowel sounds, abdomen tender throughout neuro patient is alert x3, no focal deficits Results Labs 11/01/23 11:42 11/01/23 11:42 Labs: Laboratory Results - last 24 hr 11/01/23 11:42 MCV 88.2 MCH 29.2 MCHC 33.1 RDW 14.4 Plt Count 447 H MPV 8.6 L Immature Gran % (Auto) 0.3 Neut % (Auto) 50.5 Lymph % (Auto) 42.6 H [place] % (Auto) 4.2 Eos % (Auto) 2.0 Baso % (Auto) 0.4 Lymph # (Auto) 4.6 [place] # (Auto) 0.5 Eos # (Auto) 0.2 Baso # (Auto) 0.0 Abs Immat Gran (auto) 0.03 Absolute Neuts (auto) 5.4 Absolute Nucleated RBC 0.000 Nucleated RBC % (auto) 0.0 ESR 26 H Anion Gap 12 Estim Creat Clear Calc 97.3 Estimated GFR > 60 Random Glucose 92 Lactic Acid 0.9 Calcium 9.6 D Magnesium 1.8 Total Bilirubin 0.2 Direct Bilirubin < 0.2 AST 18 ALT 14 Alkaline Phosphatase 61 C-Reactive Protein 0.72 H Total Protein 6.3 L Albumin 3.5 Lipase 8 Imaging Radiologist's Impressions: Impressions Abdomen/Pelvis CT 11/01/23 12:41 IMPRESSION: Distal small bowel obstruction from distal ileal long segment stricture sparing the terminal ileum. This is similar location to June 2023 and suggestive of active inflammatory bowel disease. Large bowel is distended and difficult to evaluate. 1 x 2 cm air collection or outpouching arising from the right lower lateral wall of the rectum from June 2023 exam. Enlarged mesenteric lymph nodes. Ascites. Gallstones. Fleischner guidelines were followed. Assessment and Plan (1) Vomiting: Qualifiers: Nausea presence: with nausea Vomiting type: unspecified Qualified Code(s): R11.2 - Nausea with vomiting, unspecified Status: Acute (2) SBO (small bowel obstruction): Status: Acute (3) Crohn disease: Qualifiers: Digestive disease complication type: with intestinal obstruction G astrointestinal tract location: small intestine Qualified Code(s): K50.012 - Crohn's disease of small intestine with intestinal obstruction Status: Acute Plan 40-year-old woman with a history of Crohn's disease admitted with recurrent Crohn's flare and now small-bowel obstruction. Distal small-bowel obstruction secondary to active inflammatory bowel disease start IV solumedrol 20mg Q8H and IV flagyl GI consult pending general surgery consultation rec> NGT, place to LIS pain management NPO History of Crohn's disease on Kylie since September 2023 DVT prophylaxis with Lovenox Full code Patient requires at least 48 hours inpatient admission for treatment of acute distal small-bowel obstruction secondary to Crohn's disease possibly requiring surgical intervention but certainly requiring NG tube, antibiotics and IV steroids, this can not be done at a lesser acute setting due to risk for decompensation Quality Stroke Does the patient have a stroke diagnosis?: No VTE Prior VTE?: No VTE Risk Level:: Medical - moderate - high VTE Device Contraindication: Treatment Not Indicated VTE Drug Contraindication: N/A - Med Ordered
[2023-11-01] MEDS: Lactated Ringers 1,000 ML 100 ML IVCONT (15:09)
[2023-11-01] MEDS: metroNIDAZOLE/NS 500 MG/100 ML PIGGYBACK 100 MG IV (16:08)
--- NOTE | 2023-11-01 16:30 | PHA.MEDREC ---
Pharmacy Consult ? Medication Reconciliation Pharmacy has completed the medication reconciliation.Confirmed medication with patient. Reports that she is due for Humira on 11/03/2023.
--- NOTE | 2023-11-01 16:31 | PC.NURSE ---
pt met with GI MD, general surgeon, and Emelyn Christina. pharmacy conducted med rec. fluids hung and pt medicated per nov. vitals updated in worklist. pt awaiting admission orders/bed assignment. call jackson within reach. pt appears more comfortable. pt daughter and granddaughter at bedside. commode at bedside and pt aware of urine sample needed. rr even/unlabored. plan of care ongoing.
--- NOTE | 2023-11-01 17:05 | P.CONGS_ITS ---
History of Present Illness Consult details Consult date: 11/01/23 Narrative: [age] year old female here in the ER because of abdominal pain. She has a known history of Crohn's disease. She actually is seeing Gastroenterology in [facility] and has been recently started on Humira. She has had episodes of abdominal pain had been admitted here in the past. She was last here at [facility] in June, for small bowel obstruction with flare up of her Crohn's disease. She says she was admitted to [facility] last week and was therefore several days because of the same problem. She says she was discharged last week and was supposed to be on oral steroids but she was not able to get prescription for this. She was doing well at home until yesterday when she started to have abdominal pain again and nausea. She says this is similar to her previous episodes. She denies flatus since yesterday. She has never had any abdominal surgery in the past. Review of Systems 2 Constitutional: Constitutional: Denies chills and Denies fever(s) Cardiovascular: Cardiovascular: Denies chest pain, Denies dyspnea and Denies dyspnea on exertion Respiratory: Respiratory: Denies cough, Denies dyspnea and Denies dyspnea on exertion Gastrointestinal: Gastrointestinal: Denies hematochezia and Denies change in bowel habits Genitourinary: Genitourinary: Denies hematuria Musculoskeletal: Musculoskeletal: Denies back pain and Denies limited range of motion Neurologic: Denies focal weakness and Denies convulsions Psychiatric: Psychiatric: Denies depression and Denies mood swings PMFSH Past Medical History Medical History Crohn's disease Depression Social History Social History Household Members: Family Household Members Other:: grandmother Housing: House Do you presently have visiting nurse or other home services: No Alcohol intake: former Comment: pt refuses alarms Patient Tobacco Use Status: Current someday Tobacco user Tobacco use type: Cigarette Cigarette Packs Per Day: 0.5 Cigarettes Per Day: 10.0 Years Smoked: 34 e-Cigarette/Vaping Use: Currently Using Second Hand Smoke Exposure: No service: No Meds Allergies Allergy/AdvReac Type Severity Reaction Status Date / Time No Known Allergies Allergy Verified 08/24/23 22:17 [No Known Allergies*] Active Medications: Current Medications Acetaminophen (Acetaminophen 325 Mg Tablet) 650 mg PO Q6H PRN PRN Reason: Pain, Mild (Pain Scale 1-3) Enoxaparin Sodium (Enoxaparin Sodium 40 Mg/0.4 Ml Syringe) 40 mg SUBCUT Q24H ALONDRA Hydromorphone HCl (Hydromorphone Hcl 1 Mg/Ml Syringe) 1 mg IVPUSH Q4H PRN; Protocol PRN Reason: Pain, Severe (Pain Scale 7-10) Lactated Ringer's (Lr) 1,000 mls @ 100 mls/hr IVCONT .Q10H [facility] Last Admin: 11/01/23 15:09 Dose: 100 mls/hr Metronidazole (Flagyl) 500 mg in 100 mls @ 100 mls/hr IV Q8H [facility] Last Admin: 11/01/23 16:08 Dose: 100 mls/hr Methylprednisolone Sodium Succinate (Methylprednisolone Sod Succ 40 Mg/Ml Vial) 20 mg IVPUSH Q8H ALONDRA Ondansetron HCl (Ondansetron Hcl 4 Mg/2 Ml Vial) 4 mg IVPUSH Q8H PRN PRN Reason: Nausea and Vomiting Sodium Chloride (0.9 % Sodium Chloride Flush 3 Ml Syringe) 3 ml IVFLUSH QSHIFT [facility] Home Medications Medication Instructions Recorded Confirmed Last Taken Type multivitamin with minerals-folic 2 tab PO DAILY 05/26/23 11/01/23 06/27/23 History acid 200 mcg chewable tablet (Multivitamin Gummies) acetaminophen 325 mg tablet 650 mg PO QID PRN Pain 11/01/23 11/01/23 Unknown History adalimumab 40 mg/0.8 mL 40 mg subcut Q2W 11/01/23 11/01/23 10/20/23 History subcutaneous syringe kit (Humira) ascorbic acid (vitamin C) 100 mg 100 mg PO DAILY 11/01/23 11/01/23 Unknown History tablet (Vitamin C) cholecalciferol (vitamin D3) 10 10 mcg PO DAILY 11/01/23 11/01/23 Unknown History mcg (400 unit) tablet (Vitamin D3) cyanocobalamin (vitamin B-12) 1,000 mcg PO DAILY 11/01/23 11/01/23 Unknown History 1,000 mcg tablet Physical Exam 2 Vital Signs: Vital Signs: Last Vital Signs Temp 98.0 F 11/01/23 15:43 Pulse 68 11/01/23 15:43 Resp 16 11/01/23 15:43 BP 116/63 11/01/23 15:43 Pulse Ox 95 11/01/23 15:43 O2 Del Method Room Air 11/01/23 15:43 BMI result Body Mass Index 23.9 Const: Other: Complains of pain General: comfortable and no acute distress Orientation/consciousness: p atient oriented x3 Neck: Neck: Yes no lymphadenopathy Resp: Auscultation: clear to auscultation bilaterally Cardio: Rhythm: regular rhythm GI: Other: Diffusely tender, mildly distended, soft Palpation (GI): Soft to palpation, nontender and no guarding Neuro: General: patient oriented x3 Results Labs 11/02/23 04:32 11/02/23 04:32 Labs: Abnormal lab results 11/01/23 Range/Units 11:42 RBC 3.80 L (4.20-5.50) X10*6/uL Hgb 11.1 L (12.0-16.0) g/dl Hct 33.5 L (37.0-47.0) % Plt Count 447 H (160-400) X10*3/uL MPV 8.6 L (9.4-12.3) fL Lymph % (Auto) 42.6 H (20-40) % ESR 26 H (0-20) MM/HR C-Reactive Protein 0.72 H (< or = 0.50) mg/dL Total Protein 6.3 L (6.5-8.0) g/dL Short CBC 11/01/23 Range/Units 11:42 WBC 10.8 (4.8-10.8) X10*3/uL Hgb 11.1 L (12.0-16.0) g/dl Hct 33.5 L (37.0-47.0) % Plt Count 447 H (160-400) X10*3/uL BMP 11/01/23 11:42 Sodium 137 Potassium 3.8 Chloride 100 Carbon Dioxide 29 BUN 9 Creatinine 0.61 Calcium 9.6 D Liver Function 11/01/23 Range/Units 11:42 Total Bilirubin 0.2 (0.0-1.0) mg/dL Direct Bilirubin < 0.2 (0.0-0.5) mg/dL AST 18 (5-31) U/L ALT 14 (0-31) U/L Alkaline Phosphatase 61 (39-117) U/L Albumin 3.5 (3.5-5.0) g/dL All other labs normal. Laboratory Results WBC 10.8 X10*3/uL (4.8-10.8) 11/01/23 11:42 RBC 3.80 X10*6/uL (4.20-5.50) L 11/01/23 11:42 Hgb 11.1 g/dl (12.0-16.0) L 11/01/23 11:42 Hct 33.5 % (37.0-47.0) L 11/01/23 11:42 MCV 88.2 fL (80.0-98.0) 11/01/23 11:42 MCH 29.2 pg (27.0-33.0) 11/01/23 11:42 MCHC 33.1 g/dl (31.0-35.0) 11/01/23 11:42 RDW 14.4 % (11.0-16.0) 11/01/23 11:42 Plt Count 447 X10*3/uL (160-400) H 11/01/23 11:42 MPV 8.6 fL (9.4-12.3) L 11/01/23 11:42 Immature Gran % (Auto) 0.3 % (0.0-0.4) 11/01/23 11:42 Neut % (Auto) 50.5 % (45-73) 11/01/23 11:42 Lymph % (Auto) 42.6 % (20-40) H 11/01/23 11:42 [place]igg % (Auto) 4.2 % (2-11) 11/01/23 11:42 Eos % (Auto) 2.0 % (0-4) 11/01/23 11:42 Baso % (Auto) 0.4 % (0-2) 11/01/23 11:42 Lymph # (Auto) 4.6 X10*3/uL (1.2-4.9) 11/01/23 11:42 [place]igg # (Auto) 0.5 X10*3/uL (0.1-1.2) 11/01/23 11:42 Eos # (Auto) 0.2 X10*3/uL (0.0-0.4) 11/01/23 11:42 Baso # (Auto) 0.0 X10*3/uL (0.0-0.2) 11/01/23 11:42 Abs Immat Gran (auto) 0.03 X10*3/uL (0.00-0.03) 11/01/23 11:42 Absolute Neuts (auto) 5.4 x10*3/uL (2.0-8.3) 11/01/23 11:42 Absolute Nucleated RBC 0.000 X10*3/uL (0.0-0.012) 11/01/23 11:42 Nucleated RBC % (auto) 0.0 /100WBC (0.0-0.2) 11/01/23 11:42 ESR 26 MM/HR (0-20) H 11/01/23 11:42 Sodium 137 mmol/L (135-145) 11/01/23 11:42 Potassium 3.8 mmol/L (3.3-5.1) 11/01/23 11:42 Chloride 100 mmol/L (96-108) 11/01/23 11:42 Carbon Dioxide 29 mmol/L (22-29) 11/01/23 11:42 Anion Gap 12 (12-20) 11/01/23 11:42 BUN 9 mg/dL (9-16) 11/01/23 11:42 Creatinine 0.61 mg/dL (0.5-1.4) 11/01/23 11:42 Estim Creat Clear Calc 97.3 11/01/23 11:42 Estimated GFR > 60 11/01/23 11:42 Random Glucose 92 mg/dL (60-115) 11/01/23 11:42 Lactic Acid 0.9 mmol/L (0.5-2.0) 11/01/23 11:42 Calcium 9.6 mg/dL (8.4-10.2) D 11/01/23 11:42 Magnesium 1.8 mg/dL (1.6-2.6) 11/01/23 11:42 Total Bilirubin 0.2 mg/dL (0.0-1.0) 11/01/23 11:42 Direct Bilirubin < 0.2 mg/dL (0.0-0.5) 11/01/23 11:42 AST 18 U/L (5-31) 11/01/23 11:42 ALT 14 U/L (0-31) 11/01/23 11:42 Alkaline Phosphatase 61 U/L (39-117) 11/01/23 11:42 C-Reactive Protein 0.72 mg/dL (< or = 0.50) H 11/01/23 11:42 Total Protein 6.3 g/dL (6.5-8.0) L 11/01/23 11:42 Albumin 3.5 g/dL (3.5-5.0) 11/01/23 11:42 Lipase 8 U/L (8-78) 11/01/23 11:42 Impressions Abdomen/Pelvis CT 11/01/23 12:41 IMPRESSION: Distal small bowel obstruction from distal ileal long segment stricture sparing the terminal ileum. This is similar location to June 2023 and suggestive of active inflammatory bowel disease. Large bowel is distended and difficult to evaluate. 1 x 2 cm air collection or outpouching arising from the right lower lateral wall of the rectum from June 2023 exam. Enlarged mesenteric lymph nodes. Ascites. Gallstones. Fleischner guidelines were followed. Assessment and Plan (1) SBO (small bowel obstruction): Status: Acute She is in the ER for abdominal pain and vomiting. Her CAT scan shows log segment stricture in the distal ileum not involving the terminal ileum itself. This is causing some partial small-bowel obstruction. There was note of question of outpouching near the rectum or possible air collection but this does not appear to be an abscess. CT scan picture is similar to her previous CT scan in June of last year Overall clinical picture consistent with a flare up over Crohn's disease with partial small-bowel obstruction of the long segment in the distal ileum. I have recommended for her to have an NG tube placed to decompress her small bowel. She will need to be NPO for now. Her electrolytes should be followed She she likely had a recurrence for flare up as she was not on a steroid taper. She says she was supposed to be on oral steroids after discharge from [facility] with the weekend but she was unable to get any prescription for this I would recommend having her seen by [facility] b[facility] bi developer for her longstanding Crohn's disease. I explained the plan to her and her daughter at bedside. We will follow along while she is in the hospital. Procedures Date of Service Date of Service: 11/03/23
[2023-11-01] MEDS: Acetaminophen 325 MG TABLET 650 MG PO (17:24)
[2023-11-01] MEDS: Enoxaparin Sodium 40 MG/0.4 ML SYRINGE SUBCUT (17:26)
[2023-11-01 19:11] LABS: Appearance Urine Clear; Color Urine Yellow; Glucose Urine UA Negative (Negative); Leukocyte Esterase Urine Negative (Negative); Nitrite Urine Negative (Negative); PH 6.5 (5.0-9.0); Specific Gravity - Urine >= 1.030 (1.005-1.025); Urine Blood Negative (Negative); Urine Ketones Trace mg/dL (Negative); Urine Protein Negative (Neg-Trace)
--- NOTE | 2023-11-01 19:25 | PC.NURSE ---
This functional tester typewriters assumed care of this Pt at 1900. Pt A&Ox3, report 10 upper ABD pain. Reports no BM since Monday and N/V. Pt medicated per NOV. Pt declined NG insertion, states she has one last week and it very irritating . Provider Dr. Lowery made aware.
--- NOTE | 2023-11-01 20:03 | MHC.EDTECH ---
This tech took over care of patient at 1900,hourly rounds and vitals completed,belonging list completed and copy placed in chart.Patient is resting comfortably at this time and call jackson within reach
--- NOTE | 2023-11-01 21:55 | MHC.EDTECH ---
Hourly rounds completed,patient is resting at this time and call jackson in reach
--- NOTE | 2023-11-01 23:52 | MHC.EDTECH ---
Hourly rounds and vitals completed,BP is low 97/54 RN is aware. Patient got up to commode with no assist, patient voided 600MLS of yellow urine. Call jackson in reach
[2023-11-02] VITALS (9 sets, daily range): BP systolic 95–122; BP diastolic 52–76; PULSE 68–85; RESP 16–20; TEMP 36.2–36.7; O2SAT 95–98
[2023-11-02] MEDS: 0.9 % Sodium Chloride Flush 3 ML SYRINGE IVFLUSH ×2 (00:40→15:14)
[2023-11-02] MEDS: metroNIDAZOLE/NS 500 MG/100 ML PIGGYBACK 100 MG IV ×3 (00:42→15:14)
[2023-11-02] MEDS: Lactated Ringers 1,000 ML 100 ML IVCONT ×2 (01:49→12:30)
--- NOTE | 2023-11-02 02:06 | MHC.EDTECH ---
Hourly rounds completed,patient is resting comfortably and call jackosn in reach
--- NOTE | 2023-11-02 04:16 | MHC.EDTECH ---
Hourly rounds and vitals completed,patient stated she is having some pain,RN Lois made aware. call jackson in reach
--- NOTE | 2023-11-02 04:30 | PC.NURSE ---
Pt appears to be sleeping, no apparent distress. Equal, non labored respirations. Plan of care on going.
[2023-11-02 05:58] LABS: Hematocrit 28.2 % (37.0-47.0); Hemoglobin 9.2 g/dl (12.0-16.0); Mean Corpuscular HGB Conc 32.6 g/dl (31.0-35.0); Mean Corpuscular Hemoglobin 29.4 pg (27.0-33.0); Mean Corpuscular Volume 90.1 fL (80.0-98.0); Mean Platelet Volume 9.1 fL (9.4-12.3); Platelet Count 402 X10*3/uL (160-400); Red Blood Count 3.13 X10*6/uL (4.20-5.50); Red Cell Distribution Width 14.2 % (11.0-16.0); White Blood Count 6.6 X10*3/uL (4.8-10.8)
[2023-11-02] MEDS: methylPREDNISolone Sod Succ 40 MG/ML VIAL 20 MG IVPUSH ×3 (06:11→20:52)
[2023-11-02] MEDS: HYDROmorphone HCl 1 MG/ML SYRINGE IVPUSH ×2 (06:12→20:51)
[2023-11-02 06:17] LABS: Anion Gap 12 (12-20); Blood Urea Nitrogen 7 mg/dL (9-16); Calcium 8.4 mg/dL (8.4-10.2); Carbon Dioxide 25 mmol/L (22-29); Chloride 105 mmol/L (96-108); Creatinine Clr Calc Pharmacy 100.6; Estimated Glomerular Filt Rate > 60; Glucose Random 91 mg/dL (60-115); Magnesium 1.7 mg/dL (1.6-2.6); Potassium 4.4 mmol/L (3.3-5.1); Sodium 138 mmol/L (135-145)
--- NOTE | 2023-11-02 06:17 | MHC.EDTECH ---
Hourly rounds and vitals completed,patient resting comfortably at this time and call jackson in reach
--- NOTE | 2023-11-02 08:04 | PM.EVENT ---
Event Note Date of Service: 11/02/23 Event Note: GI pt seen/examined, discussed with Dr Allen yesterday. Consult dictated, not yet transcribed. HIM notified. Continue steroids She will need close f/u with her primary GI. Time Spent With Patient Time: Total time managing care of this patient today ____ minutes.
--- NOTE | 2023-11-02 08:46 | CONS_ITS ---
DATE OF SERVICE: 11/01/2023 REFERRING PHYSICIAN: Dr. Allen REASON FOR CONSULTATION: Crohn disease with small bowel obstruction. HISTORY OF PRESENT ILLNESS: The patient is a 48-year-old woman, who was admitted to the hospital after presenting to the emergency room earlier today with recurrent symptoms of small bowel obstruction including nausea, vomiting, and abdominal pain. She was recently hospitalized in [place] and discharged after treatment of the same condition with intravenous steroids. However, her prednisone taper apparently was never called into the pharmacy or picked up by the patient. She had recurrent obstructive symptoms and presented to the emergency room today. CT scanning was obtained, which shows recurrent small-bowel obstruction. There was also a report of a 1 x 2 cm air collection or outpouching arising from the right lower lateral wall of the rectum, different from her previous June examination. Review of her records from [place] shows no report of any rectal outpouching, but she did have some wall thickening of the rectum on this examination. She reports her last colonoscopy was in July and apparently showed small bowel disease. She had previously been treated with Lialda and was switched to azathioprine, which caused symptoms of shortness of breath. She began taking Humira in September and has had 4 doses with her 5th scheduled in November. She has required frequent hospitalizations with prednisone tapers. PAST MEDICAL HISTORY: 1. Crohn disease diagnosed in 2021 with treatment as above. 2. Small bowel obstructions. 3. Depression. CURRENT MEDICATIONS: Her current medication list is reviewed in the chart. ALLERGIES: THERE ARE NONE REPORTED. FAMILY HISTORY: This is reviewed with the patient, is negative for inflammatory bowel disease. SOCIAL HISTORY: She does smoke and was advised to discontinue this because of her underlying inflammatory bowel disease. She denies significant alcohol intake routinely. REVIEW OF SYSTEMS: SKIN: No pruritus. HEENT: Negative. CARDIOPULMONARY: No shortness of breath or chest pain. GASTROINTESTINAL: As above. GENITOURINARY: Negative. NEUROPSYCHIATRIC: Negative. PHYSICAL EXAMINATION: GENERAL: Shows a pleasant female, lying comfortably in bed, complaining of abdominal pain. VITAL SIGNS: Reviewed in electronic medical record and are stable. SKIN: Anicteric. HEENT: Shows no scleral icterus. NECK: Without lymphadenopathy or thyromegaly. LUNGS: Clear. HEART: Shows regular rate and rhythm. S1, S2. No murmur. ABDOMEN: Mildly distended and mildly diffusely tender to palpation without guarding or rebound. EXTREMITIES: Without edema. LABORATORY DATA AND IMAGING STUDIES: Reviewed. IMPRESSION: Crohn disease with small bowel obstruction. RECOMMENDATIONS: I would recommend starting steroids with Solu-Medrol 20 mg IV every 8 hours. She can continue her Humira as an outpatient and she was advised to get levels checked as well as antibody levels. She may require switching to a different biologic or to a different medication that mediates inflammatory changes by a different pathway, such as interleukin inhibitors. If she continues to have vomiting, I would recommend placement of an NG tube. The patient is against this. Her rectal findings on CT do not appear significant. Dr. Clinton has been consulted. Flexible sigmoidoscopy could be useful to re-evaluate this area. We will obtain her records from her colonoscopy at [facility]. Thanks for asking me to see her. I will follow her in the hospital with you. MD FROYLAN Paul/ROMEO / [phone]
--- NOTE | 2023-11-02 08:58 | MHC.CM.PN ---
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 PT'S GOAL IS HOME SELF CARE WHEN MEDICALLY CLEARED. PT VERIFIES PCP AND HCP ON FILE ARE CORRECT AND IS FULLY COVID VAXED.
--- NOTE | 2023-11-02 09:54 | P.PNGS_ITS ---
Subjective Subjective Date of Service: 11/03/23 Interval history: She feels better this morning Admits she still has pain although not as bad Denies flatus No further vomiting overnight She had refused NG tube placement last night Physical Exam 2 Vital Signs: Vital Signs: Last Vital Signs Temp 97.5 F 11/02/23 07:34 Pulse 79 11/02/23 07:34 Resp 18 11/02/23 07:34 BP 111/65 11/02/23 07:34 Pulse Ox 98 11/02/23 07:34 O2 Del Method Room Air 11/02/23 07:34 BMI result Body Mass Index 23.9 Const: Other: More comfortable than yesterday General: no acute distress Resp: Effort & Inspection: normal respiratory effort Cardio: Rate: regular rate GI: Palpation (GI): Soft to palpation, not firm, Tenderness to palpation present (GI) (Some diffuse tenderness) and no guarding Objective Data Active Medications Acetaminophen (Acetaminophen 325 Mg Tablet) 650 mg PO Q6H PRN PRN Reason: Pain, Mild (Pain Scale 1-3) Last Admin: 11/01/23 17:24 Dose: 650 mg Documented By: IVETH Enoxaparin Sodium (Enoxaparin Sodium 40 Mg/0.4 Ml Syringe) 40 mg SUBCUT Q24H [facility] Last Admin: 11/01/23 17:26 Dose: 40 mg Documented By: IVETH Hydromorphone HCl (Hydromorphone Hcl 1 Mg/Ml Syringe) 1 mg IVPUSH Q4H PRN; Protocol PRN Reason: Pain, Severe (Pain Scale 7-10) Last Admin: 11/02/23 06:12 Dose: 1 mg Documented By: LOUISE Lactated Ringer's (Lr) 1,000 mls @ 100 mls/hr IVCONT .Q10H [facility] Last Admin: 11/02/23 01:49 Dose: 100 mls/hr Documented By: LOUISE Metronidazole (Flagyl) 500 mg in 100 mls @ 100 mls/hr IV Q8H [facility] Last Infusion: 11/02/23 09:35 Dose: Infused Documented By: JEROME Methylprednisolone Sodium Succinate (Methylprednisolone Sod Succ 40 Mg/Ml Vial) 20 mg IVPUSH Q8H [facility] Last Admin: 11/02/23 06:11 Dose: 20 mg Documented By: LOUISE Ondansetron HCl (Ondansetron Hcl 4 Mg/2 Ml Vial) 4 mg IVPUSH Q8H PRN PRN Reason: Nausea and Vomiting Sodium Chloride (0.9 % Sodium Chloride Flush 3 Ml Syringe) 3 ml IVFLUSH QSHIFT [facility] Last Admin: 11/02/23 08:10 Dose: Not Given Documented By: TAURUS Non-Admin Reason: IV Running Labs 11/02/23 04:32 11/02/23 04:32 Labs: Laboratory Results - last 24 hr 11/01/23 11/01/23 11/02/23 11:42 19:04 04:32 MCV 88.2 90.1 MCH 29.2 29.4 MCHC 33.1 32.6 RDW 14.4 14.2 Plt Count 447 H 402 H MPV 8.6 L 9.1 L Immature Gran % (Auto) 0.3 Neut % (Auto) 50.5 Lymph % (Auto) 42.6 H [place] % (Auto) 4.2 Eos % (Auto) 2.0 Baso % (Auto) 0.4 Lymph # (Auto) 4.6 [place] # (Auto) 0.5 Eos # (Auto) 0.2 Baso # (Auto) 0.0 Abs Immat Gran (auto) 0.03 Absolute Neuts (auto) 5.4 Absolute Nucleated RBC 0.000 0.000 Nucleated RBC % (auto) 0.0 0.0 ESR 26 H Anion Gap 12 12 Estim Creat Clear Calc 97.3 100.6 Estimated GFR > 60 > 60 Random Glucose 92 91 Lactic Acid 0.9 Calcium 9.6 D 8.4 D Magnesium 1.8 1.7 Total Bilirubin 0.2 Direct Bilirubin < 0.2 AST 18 ALT 14 Alkaline Phosphatase 61 C-Reactive Protein 0.72 H Total Protein 6.3 L Albumin 3.5 Lipase 8 Urine Color Yellow Urine Appearance Clear Urine pH 6.5 Ur Specific [place] >= 1.030 H Urine Protein Negative Urine Glucose (UA) Negative Urine Ketones Trace Urine Blood Negative Urine Nitrite Negative Ur Leukocyte Esterase Negative Procedures Date of Service Date of Service: 11/03/23 Progress Note: A&P Assessment and plan (1) SBO (small bowel obstruction): Status: Acute Assessment and Plan: Has Crohn's disease Improving compared to yesterday regards to pain and vomiting She is asking for broth - Okay to have ice chips for now Abdomen soft and benign Started on Solu-Medrol She says she has a 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 Quality Stroke Does the patient have a stroke diagnosis?: No VTE Prior VTE?: No VTE Risk Level:: Medical - moderate - high VTE Device Contraindication: Treatment Not Indicated VTE Drug Contraindication: N/A - Med Ordered
--- NOTE | 2023-11-02 10:28 | P.PNIM_ITS ---
Subjective Subjective Date of Service: 11/02/23 Interval History: seen and examined this morning follow up for abdominal pain, bowel obstruction feeling better this am, less abdominal pain, not passing gas Review of Systems Review of Systems: Yes all other systems are reviewed and are negative Constitutional Constitutional: Denies chills and Denies fever(s) Cardiovascular Cardiovascular: Denies chest pain and Denies dyspnea Respiratory Respiratory: Denies dyspnea Gastrointestinal Gastrointestinal: Reports abdominal pain, Denies nausea and Denies vomiting Physical Exam 2 Vital Signs: Vital Signs: Last Vital Signs Temp 97.5 F 11/02/23 07:34 Pulse 79 11/02/23 07:34 Resp 18 11/02/23 07:34 BP 111/65 11/02/23 07:34 Pulse Ox 98 11/02/23 07:34 O2 Del Method Room Air 11/02/23 07:34 BMI result Body Mass Index 23.9 Const: General: cooperative, comfortable, no acute distress, alert and awake Nutritional Appearance: average body habitus Orientation/consciousness: p atient oriented x3 Resp: Effort & Inspection: normal respiratory effort, able to speak in complete sentences, no respiratory distress and no use of accessory muscles Cardio: Rate: regular rate Heart sounds: S1 normal heart sound present and S2 normal heart sound present GI: Other: soft, non-distended, mild abdominal discomfort on palpation, no guarding or rebound Neuro: General: patient oriented x3, moves all extremities and CN's II-XI intact bilaterally Extrem: General: Yes no pedal edema Objective Data Active Medications Acetaminophen (Acetaminophen 325 Mg Tablet) 650 mg PO Q6H PRN PRN Reason: Pain, Mild (Pain Scale 1-3) Last Admin: 11/01/23 17:24 Dose: 650 mg Documented By: IVETH Enoxaparin Sodium (Enoxaparin Sodium 40 Mg/0.4 Ml Syringe) 40 mg SUBCUT Q24H [facility] Last Admin: 11/01/23 17:26 Dose: 40 mg Documented By: IVETH Hydromorphone HCl (Hydromorphone Hcl 1 Mg/Ml Syringe) 1 mg IVPUSH Q4H PRN; Protocol PRN Reason: Pain, Severe (Pain Scale 7-10) Last Admin: 11/02/23 06:12 Dose: 1 mg Documented By: LOUISE Lactated Ringer's (Lr) 1,000 mls @ 100 mls/hr IVCONT .Q10H [facility] Last Admin: 11/02/23 01:49 Dose: 100 mls/hr Documented By: LOUISE Metronidazole (Flagyl) 500 mg in 100 mls @ 100 mls/hr IV Q8H [facility] Last Infusion: 11/02/23 09:35 Dose: Infused Documented By: JEROME Methylprednisolone Sodium Succinate (Methylprednisolone Sod Succ 40 Mg/Ml Vial) 20 mg IVPUSH Q8H [facility] Last Admin: 11/02/23 06:11 Dose: 20 mg Documented By: LOUISE Ondansetron HCl (Ondansetron Hcl 4 Mg/2 Ml Vial) 4 mg IVPUSH Q8H PRN PRN Reason: Nausea and Vomiting Sodium Chloride (0.9 % Sodium Chloride Flush 3 Ml Syringe) 3 ml IVFLUSH QSHIFT [facility] Last Admin: 11/02/23 08:10 Dose: Not Given Documented By: TAURUS Non-Admin Reason: IV Running Labs 11/02/23 04:32 11/02/23 04:32 Labs: Laboratory Results - last 24 hr 11/01/23 11/01/23 11/02/23 11:42 19:04 04:32 MCV 88.2 90.1 MCH 29.2 29.4 MCHC 33.1 32.6 RDW 14.4 14.2 Plt Count 447 H 402 H MPV 8.6 L 9.1 L Immature Gran % (Auto) 0.3 Neut % (Auto) 50.5 Lymph % (Auto) 42.6 H [place] % (Auto) 4.2 Eos % (Auto) 2.0 Baso % (Auto) 0.4 Lymph # (Auto) 4.6 [place] # (Auto) 0.5 Eos # (Auto) 0.2 Baso # (Auto) 0.0 Abs Immat Gran (auto) 0.03 Absolute Neuts (auto) 5.4 Absolute Nucleated RBC 0.000 0.000 Nucleated RBC % (auto) 0.0 0.0 ESR 26 H Anion Gap 12 12 Estim Creat Clear Calc 97.3 100.6 Estimated GFR > 60 > 60 Random Glucose 92 91 Lactic Acid 0.9 Calcium 9.6 D 8.4 D Magnesium 1.8 1.7 Total Bilirubin 0.2 Direct Bilirubin < 0.2 AST 18 ALT 14 Alkaline Phosphatase 61 C-Reactive Protein 0.72 H Total Protein 6.3 L Albumin 3.5 Lipase 8 Urine Color Yellow Urine Appearance Clear Urine pH 6.5 Ur Specific [place] >= 1.030 H Urine Protein Negative Urine Glucose (UA) Negative Urine Ketones Trace Urine Blood Negative Urine Nitrite Negative Ur Leukocyte Esterase Negative Assessment and Plan (1) SBO (small bowel obstruction): Status: Acute (2) Crohn disease: Status: Acute Plan This is a 40-year-old woman with a history of Crohn's disease admitted with recurrent Crohn's flare and small-bowel obstruction. Distal small-bowel obstruction secondary to active inflammatory bowel disease start IV solumedrol 20mg Q8H and IV flagyl seen by GI, rec to continue steroids general surgery following pain management NPO - can try ice chips History of Crohn's disease on Kylie since September 2023 DVT prophylaxis with Lovenox Full code Requires ongoing admission for treatment of acute distal small-bowel obstruction secondary to Crohn's disease , IV antibiotics and IV steroids, this can not be done at a lesser acute setting due to risk for decompensation Quality Stroke Does the patient have a stroke diagnosis?: No VTE Prior VTE?: No VTE Risk Level:: Medical - moderate - high VTE Device Contraindication: Treatment Not Indicated VTE Drug Contraindication: N/A - Med Ordered
--- NOTE | 2023-11-02 16:29 | PM.GIPN ---
Subjective Subjective Date of Service: 11/02/23 Interval History: feels better less abd distension no vomiting Critical Care Time (minutes): 0 Physical Exam Vital Signs: Vital Signs: Last Vital Signs Temp 97.9 F 11/02/23 15:39 Pulse 73 11/02/23 15:39 Resp 18 11/02/23 15:39 BP 119/64 11/02/23 15:39 Pulse Ox 97 11/02/23 15:39 O2 Del Method Room Air 11/02/23 15:39 BMI result Body Mass Index 23.9 GI: Other: abdomen is soft and nontender Objective Data Labs 11/02/23 04:32 11/02/23 04:32 Labs: Laboratory Results - last 24 hr 11/01/23 11/02/23 19:04 04:32 WBC 6.6 RBC 3.13 L Hgb 9.2 L Hct 28.2 L MCV 90.1 MCH 29.4 MCHC 32.6 RDW 14.2 Plt Count 402 H MPV 9.1 L Absolute Nucleated RBC 0.000 Nucleated RBC % (auto) 0.0 Sodium 138 Potassium 4.4 Chloride 105 Carbon Dioxide 25 Anion Gap 12 BUN 7 L Creatinine 0.59 Estim Creat Clear Calc 100.6 Estimated GFR > 60 Random Glucose 91 Calcium 8.4 D Magnesium 1.7 Urine Color Yellow Urine Appearance Clear Urine pH 6.5 Ur Specific [place] >= 1.030 H Urine Protein Negative Urine Glucose (UA) Negative Urine Ketones Trace Urine Blood Negative Urine Nitrite Negative Ur Leukocyte Esterase Negative Procedures Date of Service Date of Service: 11/02/23 Progress Note: A&P Assessment and plan (1) Crohn disease: Status: Acute Assessment and Plan: improving continue steroids, Humira Time Spent With Patient Time: Total time managing care of this patient today ____ minutes. Quality Stroke Does the patient have a stroke diagnosis?: No VTE Prior VTE?: No VTE Risk Level:: Medical - moderate - high VTE Device Contraindication: Treatment Not Indicated VTE Drug Contraindication: N/A - Med Ordered
[2023-11-02] MEDS: Enoxaparin Sodium 40 MG/0.4 ML SYRINGE SUBCUT (17:10)
[2023-11-03] MEDS: metroNIDAZOLE/NS 500 MG/100 ML PIGGYBACK 100 MG IV ×2 (00:48→09:00)
[2023-11-03] MEDS: Lactated Ringers 1,000 ML 100 ML IVCONT ×2 (00:48→11:28)
[2023-11-03] MEDS: 0.9 % Sodium Chloride Flush 3 ML SYRINGE IVFLUSH ×3 (00:55→14:13)
[2023-11-03 03:46] VITALS: BP 92/55; PULSE 67; RESP 20; TEMP 36.2; O2SAT 96
[2023-11-03] MEDS: methylPREDNISolone Sod Succ 40 MG/ML VIAL 20 MG IVPUSH ×2 (05:51→14:11)
[2023-11-03 06:58] VITALS: BP 117/62; PULSE 72; RESP 18; TEMP 36.5; O2SAT 99
[2023-11-03 11:12] VITALS: BP 98/62; PULSE 77; RESP 18; TEMP 36.6; O2SAT 98
--- NOTE | 2023-11-03 12:24 | PM.GIPN ---
Subjective Subjective Date of Service: 11/03/23 Interval History: feels good starting clear liquids Critical Care Time (minutes): 0 Physical Exam Vital Signs: Vital Signs: Last Vital Signs Temp 97.8 F 11/03/23 11:12 Pulse 77 11/03/23 11:12 Resp 18 11/03/23 11:12 BP 98/62 11/03/23 11:12 Pulse Ox 98 11/03/23 11:12 O2 Del Method Room Air 11/03/23 11:12 BMI result Body Mass Index 23.9 GI: Other: abdomen is soft and nontender Objective Data Labs 11/02/23 04:32 11/02/23 04:32 Procedures Date of Service Date of Service: 11/03/23 Progress Note: A&P Assessment and plan (1) Crohn disease: Status: Acute Assessment and Plan: advance diet as tolerated. on discharge, recommend prednisone 40 mg/d, taper by 5 mg weekly and f/u with primary GI provider at [facility]. continue Humira. Time Spent With Patient Time: Total time managing care of this patient today ____ minutes. Quality Stroke Does the patient have a stroke diagnosis?: No VTE Prior VTE?: No VTE Risk Level:: Medical - moderate - high VTE Device Contraindication: Treatment Not Indicated VTE Drug Contraindication: N/A - Med Ordered
--- NOTE | 2023-11-03 12:45 | PM.PNGS ---
Subjective Subjective Date of Service: 11/03/23 Interval history: Feels much better Passing flatus Had BMs Tolerating clear liquids Physical Exam Vital Signs: Vital Signs: Last Vital Signs Temp 97.8 F 11/03/23 11:12 Pulse 77 11/03/23 11:12 Resp 18 11/03/23 11:12 BP 98/62 11/03/23 11:12 Pulse Ox 98 11/03/23 11:12 O2 Del Method Room Air 11/03/23 11:12 BMI result Body Mass Index 23.9 Const: General: comfortable and no acute distress Resp: Effort & Inspection: normal respiratory effort Cardio: Rate: regular rate GI: Inspection: No distended Palpation (GI): Soft to palpation, not firm, nontender and no guarding Objective Data Active Medications Acetaminophen (Acetaminophen 325 Mg Tablet) 650 mg PO Q6H PRN PRN Reason: Pain, Mild (Pain Scale 1-3) Last Admin: 11/01/23 17:24 Dose: 650 mg Documented By: IVETH Enoxaparin Sodium (Enoxaparin Sodium 40 Mg/0.4 Ml Syringe) 40 mg SUBCUT Q24H [facility] Last Admin: 11/02/23 17:10 Dose: 40 mg Documented By: TAURUS Hydromorphone HCl (Hydromorphone Hcl 1 Mg/Ml Syringe) 1 mg IVPUSH Q4H PRN; Protocol PRN Reason: Pain, Severe (Pain Scale 7-10) Last Admin: 11/02/23 20:51 Dose: 1 mg Documented By: LEDY Lactated Ringer's (Lr) 1,000 mls @ 100 mls/hr IVCONT .Q10H [facility] Last Admin: 11/03/23 11:28 Dose: 100 mls/hr Documented By: MIRA Metronidazole (Flagyl) 500 mg in 100 mls @ 100 mls/hr IV Q8H [facility] Last Infusion: 11/03/23 11:29 Dose: Infused Documented By: MIRA Methylprednisolone Sodium Succinate (Methylprednisolone Sod Succ 40 Mg/Ml Vial) 20 mg IVPUSH Q8H [facility] Last Admin: 11/03/23 05:51 Dose: 20 mg Documented By: LEDY Patient Own Medication (Humira Pen 40 Mg/0.4 Ml) 40 each SUBCUT Q14D [facility] Last Admin: 11/03/23 11:25 Dose: 40 each Documented By: MIRA Ondansetron HCl (Ondansetron Hcl 4 Mg/2 Ml Vial) 4 mg IVPUSH Q8H PRN PRN Reason: Nausea and Vomiting Sodium Chloride (0.9 % Sodium Chloride Flush 3 Ml Syringe) 3 ml IVFLUSH QSHIFT [facility] Last Admin: 11/03/23 09:00 Dose: 3 ml Documented By: MIRA Labs 11/02/23 04:32 11/02/23 04:32 Procedures Date of Service Date of Service: 11/03/23 Progress Note: A&P Assessment and plan (1) SBO (small bowel obstruction): Status: Acute Assessment and Plan: Now asymptomatic Okay to advance diet as tolerated Abdominal exam benign The rest of management for here on as per gastroenterology service Time Spent With Patient Time: Total time managing care of this patient today ____ minutes. Quality Stroke Does the patient have a stroke diagnosis?: No VTE Prior VTE?: No VTE Risk Level:: Medical - moderate - high VTE Device Contraindication: Treatment Not Indicated VTE Drug Contraindication: N/A - Med Ordered
--- NOTE | 2023-11-03 13:05 | HO.PM.IMPN ---
Subjective Subjective Date of Service: 11/03/23 Interval History: seen and examined this morning follow up for sbo/Crohn's flare Abdominal pain improving, had bowel movement this morning Review of Systems Review of Systems: Yes all other systems are reviewed and are negative Constitutional Constitutional: Denies chills and Denies fever(s) Cardiovascular Cardiovascular: Denies chest pain, Denies palpitations and Denies dyspnea Respiratory Respiratory: Denies cough and Denies dyspnea Endocrine Endocrine: Denies palpitations Physical Exam Vital Signs: Vital Signs: Last Vital Signs Temp 97.8 F 11/03/23 11:12 Pulse 77 11/03/23 11:12 Resp 18 11/03/23 11:12 BP 98/62 11/03/23 11:12 Pulse Ox 98 11/03/23 11:12 O2 Del Method Room Air 11/03/23 11:12 BMI result Body Mass Index 23.9 Const: General: cooperative, comfortable, no acute distress, alert and awake Nutritional Appearance: average body habitus Orientation/consciousness: patient oriented x3 Resp: Effort & Inspection: normal respiratory effort, able to speak in complete sentences, no respiratory distress and no use of accessory muscles Cardio: Rate: regular rate Heart sounds: S1 normal heart sound present and S2 normal heart sound present GI: Other: soft, non-distended, mild abdominal discomfort on palpation, no guarding or rebound Neuro: General: patient oriented x3, moves all extremities and CN's II-XI intact bilaterally Extrem: General: Yes no pedal edema Objective Data Active Medications Acetaminophen (Acetaminophen 325 Mg Tablet) 650 mg PO Q6H PRN PRN Reason: Pain, Mild (Pain Scale 1-3) Last Admin: 11/01/23 17:24 Dose: 650 mg Documented By: IVETH Enoxaparin Sodium (Enoxaparin Sodium 40 Mg/0.4 Ml Syringe) 40 mg SUBCUT Q24H [facility] Last Admin: 11/02/23 17:10 Dose: 40 mg Documented By: TAURUS Hydromorphone HCl (Hydromorphone Hcl 1 Mg/Ml Syringe) 1 mg IVPUSH Q4H PRN; Protocol PRN Reason: Pain, Severe (Pain Scale 7-10) Last Admin: 11/02/23 20:51 Dose: 1 mg Documented By: LEDY Lactated Ringer's (Lr) 1,000 mls @ 100 mls/hr IVCONT .Q10H [facility] Last Admin: 11/03/23 11:28 Dose: 100 mls/hr Documented By: MIRA Metronidazole (Flagyl) 500 mg in 100 mls @ 100 mls/hr IV Q8H [facility] Last Infusion: 11/03/23 11:29 Dose: Infused Documented By: MIRA Methylprednisolone Sodium Succinate (Methylprednisolone Sod Succ 40 Mg/Ml Vial) 20 mg IVPUSH Q8H [facility] Last Admin: 11/03/23 05:51 Dose: 20 mg Documented By: LEDY Patient Own Medication (Humira Pen 40 Mg/0.4 Ml) 40 each SUBCUT Q14D [facility] Last Admin: 11/03/23 11:25 Dose: 40 each Documented By: MIRA Ondansetron HCl (Ondansetron Hcl 4 Mg/2 Ml Vial) 4 mg IVPUSH Q8H PRN PRN Reason: Nausea and Vomiting Sodium Chloride (0.9 % Sodium Chloride Flush 3 Ml Syringe) 3 ml IVFLUSH QSHIFT [facility] Last Admin: 11/03/23 09:00 Dose: 3 ml Documented By: MIRA Labs 11/02/23 04:32 11/02/23 04:32 Assessment and Plan (1) SBO (small bowel obstruction): Status: Acute (2) Crohn disease: Status: Acute Plan This is a 40-year-old woman with a history of Crohn's disease admitted with recurrent Crohn's flare and small-bowel obstruction. Distal small-bowel obstruction secondary to active inflammatory bowel disease iproving d/c flagyl wean IV solu-medrol, plan to transition to prednisone in am; will need prednisone taper on discharge will advance to clears seen by GI, no further recs at this time general surgery following History of Crohn's disease will get dose of Kylie today - brought from home DVT prophylaxis with Lovenox Full code Requires ongoing admission for treatment of acute distal small-bowel obstruction secondary to Crohn's disease , IV antibiotics and IV steroids, this can not be done at a lesser acute setting due to risk for decompensation Quality Stroke Does the patient have a stroke diagnosis?: No VTE Prior VTE?: No VTE Risk Level:: Medical - moderate - high VTE Device Contraindication: Treatment Not Indicated VTE Drug Contraindication: N/A - Med Ordered
[2023-11-03 15:18] VITALS: BP 100/55; PULSE 78; RESP 18; TEMP 36.8; O2SAT 98
[2023-11-03] MEDS: Enoxaparin Sodium 40 MG/0.4 ML SYRINGE SUBCUT (17:30)
[2023-11-03 19:04] VITALS: BP 113/58; PULSE 73; RESP 16; TEMP 36.9; O2SAT 98
[2023-11-03] MEDS: HYDROmorphone HCl 1 MG/ML SYRINGE IVPUSH (22:04)
[2023-11-03 23:31] VITALS: BP 117/60; PULSE 58; RESP 16; TEMP 36.6; O2SAT 97
[2023-11-04 03:21] VITALS: BP 107/64; PULSE 54; RESP 18; TEMP 36.6; O2SAT 97
[2023-11-04 07:18] VITALS: BP 121/67; PULSE 63; RESP 16; TEMP 36.5; O2SAT 97
[2023-11-04] MEDS: predniSONE 20 MG TABLET 40 MG PO (10:00)
[2023-11-04] MEDS: 0.9 % Sodium Chloride Flush 3 ML SYRINGE IVFLUSH (10:03)
[2023-11-04 11:41] VITALS: BP 117/62; PULSE 85; RESP 20; TEMP 36.4; O2SAT 98
[2023-11-04] MEDS: Acetaminophen 325 MG TABLET 650 MG PO (13:48)
--- NOTE | 2023-11-04 14:06 | PM.DS ---
DS: Providers Provider Date of Service: 11/04/23 Date of admission: 11/01/23 17:02 Primary care physician: Gwendolyn Luis MD Consults: 11/01/23 14:24 Consult to Gastroenterology Stat Consulting Provider: Tamar Lopez Reason for consultation: crohns SBO Has provider been notified: Yes Consult to General Surgery Stat Consulting Provider: [facility] [place] General Surgeons Reason for consultation: SBO, rectal lesion Has provider been notified: Yes 11/02/23 07:43 Consult to Gastroenterology Routine Consulting Provider: Tamar Lopez Reason for consultation: crohns flare, sbo Has provider been notified: No DS: Diagnosis Discharge Diagnosis (1) SBO (small bowel obstruction): Status: Acute DS: Summary Hospital Course Hospital Course: History and physical as per admitting provider. 48-year-old woman with history of Crohn's disease, recently diagnosed in 2022 presenting with pain, nausea, vomiting without bowel movement or flatus. She has been unable to keep any food or fluids down since Monday. She was treated at [facility] from 10/25-10/29 for Crohn's flare. She was treated with antibiotics, NGT, steroids and she was discharged home on Monday but still felt unwell patient reported that she was supposed to get prednisone but was never prescribed it. In the ER, Vital signs stable, labs all within acceptable limits, abdominal CT showing distal small-bowel obstruction suggestive of active inflammatory bowel disease with large bowel distended. Plan for NG tube placement in the ER. Plan is to admit patient for further management and treatment of acute Crohn's flare with small-bowel obstruction. 48 year old women treated for distal small-bowel obstruction secondary to active inflammatory bowel disease, Crohn's disease. Initially treated with IV Flagyl, IV Solu-Medrol, transitioned to oral prednisone. Seen and evaluated by Gastroenterology with recommendation for 8 week prednisone taper. Seen evaluated by General surgery was no surgical intervention needed during hospitalization. She is on Humira at home and she should continue this. This point patient is eating a regular diet, only having mild nausea but no vomiting and no abdominal pain. Plan is to discharge patient home. Time Attestation Discharge coordination time: Greater than 30 minutes Quality: Safe Use of Opioids Does Pt have an Active Cancer Diagnosis on the Problem List?: No Quality: Stroke Does the patient have a stroke diagnosis?: No Physical Exam Vital Signs: Vital Signs: Last Vital Signs Temp 97.6 F 11/04/23 11:41 Pulse 85 11/04/23 11:41 Resp 20 11/04/23 11:41 BP 117/62 11/04/23 11:41 Pulse Ox 98 11/04/23 11:41 O2 Del Method Room Air 11/04/23 11:41 BMI result Body Mass Index 23.9 Appearing in no acute distress head is normocephalic atraumatic eyes pupils are PERRLA sclera is anicteric mouth throat mucous membranes are intact and moist neck is supple no lymphadenopathy, no JVD noted lung sounds are clear to auscultation heart regular rate rhythm, clear S1, S2 positive bowel sounds, abdomen is soft, nontender neuro patient is alert x3, no focal deficits Discharge Plan Discharge Anticipated Discharge Date/Time: 11/04/23 13:51 Patient Disposition: Home, Self-Care Discharge Diagnosis: Small-bowel obstruction secondary to Crohn's disease Referrals: Gwendolyn Luis MD [Primary Care Provider] - 1 Week Discharge Medications: New ondansetron 4 mg tablet,disintegrating 4 mg PO Q8H PRN (Reason: nausea and vomiting) Qty: 12 0RF prednisone 5 mg tablet See Rx Instructions .ROUTE .COMPLEX Qty: 252 0RF Rx Instructions: see taper instructions: Take 8 tablets for 7 days then reduce by one tablet every 7 days until complete Continued acetaminophen 325 mg Tablet 650 mg PO QID PRN (Reason: Pain) cyanocobalamin (vitamin B-12) 1,000 mcg Tablet 1,000 mcg PO DAILY Vitamin C 100 mg Tablet 100 mg PO DAILY cholecalciferol (vitamin D3) [Vitamin D3] 10 mcg (400 unit) Tablet 10 mcg PO DAILY Humira 40 mg/0.8 mL Syringe Kit 40 mg SUBCUT Q2W multivit with min-folic acid [Multivitamin Gummies] 200 mcg Tablet,Chewable 2 tab PO DAILY Discharge Orders: Discharge Order (Routine); Ordered 11/04/23 Ordered By: Emelyn Christina Diet: Advance to usual diet Activity on Discharge: As tolerated Stand Alone Forms: Patient Portal Discharge page, Work/School Release Care Plan Goals: Take prednisone taper for 8 weeks Health Concerns: Small-bowel obstruction secondary to Crohn's disease Plan of Treatment: Follow-up with electric organ assembler as as needed Take all medications as prescribed Assessment: See discharge summary
--- NOTE | 2023-11-04 14:20 | MHC.CM.PN ---
PT WILL DC HOME TODAY WITH NO SERVICES VIA PRIVATE TRANSPORT
[2023-11-09 11:02] LABS: Adalimumab Drug Level 3.3 mcg/mL; Anti-Adalimumab Antibody <10 AU (<10)
== END 2023-11-04 14:40 | disposition home or self-care (01) | DRG 245 ==
LOC: HO.ED 14:30 → HO.EDOVER 17:07 → HO.IMC 11-02 07:01
PROVIDERS: Physician Assistant Medical; Admitting Provider Nurse Practitioner Acute Care; Emergency Provider Emergency Medicine; PCP Internal Medicine; Visit Provider Nurse Practitioner Acute Care
DX: K50.012 Crohn's disease of small intestine with intestinal obstruction (principal); F17.210 Nicotine dependence, cigarettes, uncomplicated; Z71.6 Tobacco abuse counseling; Z79.620 Long term (current) use of immunosuppressive biologic; Z79.899 Other long term (current) drug therapy
CPT/HCPCS: 36415; 74177; 80048; 80076; 80145; 81003; 83520; 83605; 83690; 83735; 85025; 85027; 85652; 86140; 93005; 99285; J1170; J1650; J1836; J2405; J2920; J2930; J7120; Q9967

== ENCOUNTER → 2023-11-01 11:50 | Outpatient (BNV) | payer OTHER, SELFPAY | PROVIDERS: Admitting Provider Nurse Practitioner Acute Care; Emergency Provider Emergency Medicine; PCP Internal Medicine; Visit Provider Internal Medicine | DX: R42 Dizziness and giddiness (principal) | CPT/HCPCS: 93010 ==

== ENCOUNTER → 2023-11-01 17:02 | Outpatient (BNV) | payer OTHER, SELFPAY | PROVIDERS: Admitting Provider Nurse Practitioner Acute Care; Emergency Provider Emergency Medicine; PCP Internal Medicine; Visit Provider Surgery | DX: K56.609 Unspecified intestinal obstruction, unspecified as to partial versus complete obstruction (principal) | CPT/HCPCS: 99222; 99232 ==

== ENCOUNTER → 2023-11-01 17:02 | Outpatient (BNV) | payer OTHER, SELFPAY | PROVIDERS: Admitting Provider Nurse Practitioner Acute Care; Emergency Provider Emergency Medicine; PCP Internal Medicine; Visit Provider Nurse Practitioner Acute Care | DX: K56.609 Unspecified intestinal obstruction, unspecified as to partial versus complete obstruction (principal) | CPT/HCPCS: 99223; 99232; 99239 ==

== ENCOUNTER 2023-11-08 15:33 | Inpatient (IN) | payer OTHER, SELFPAY ==
--- NOTE | ~2023-11-08 | CT_ITS ---
EXAMINATION: CT ABDOMEN AND PELVIS WITH CONTRAST CLINICAL INFORMATION: Abdominal pain. Rule out small bowel obstruction. COMPARISON: Previous CT of the abdomen and pelvis 11/01/2023 TECHNIQUE: Multidetector volumetric images were obtained from the superior aspect of the liver through the pubic symphysis following administration 85 mL of Omnipaque 350 intravenous contrast. Sagittal and coronal reformatted images were obtained on the technologist's workstation. Oral contrast: Yes This CT examination was performed using dose optimization techniques as appropriate, variously including the following: *Automated exposure control *Adjustment of mA and/or kV according to patient size (this includes techniques or standardized protocols for targeted exams where dose is matched to indication/reason for exam; i.e. extremities or head) *Use of iterative reconstruction technique DLP: 366 mGy-cm FINDINGS: LUNG BASES: The visualized lung bases are unremarkable. LIVER, GALLBLADDER, AND BILIARY TREE: The liver is normal in size, shape, and attenuation. No focal hepatic lesion or biliary ductal dilatation is present. Gallstones. PANCREAS: Unremarkable. SPLEEN: Unremarkable. ADRENAL GLANDS: Unremarkable. KIDNEYS AND URETERS: The kidneys are normal in size, shape, and attenuation. No hydronephrosis, hydroureter, or calculi seen. No perinephric stranding. BLADDER: Unremarkable. GASTROINTESTINAL TRACT: Markedly dilated fluid-filled small bowel. Long segment distal ileum stricture with wall thickening , mucosal enhancement and adjacent stranding of the mesenteric fat sparing the terminal ileum. This is similar in distribution to previous exam. Small bowel dilatation appears increased. Second area of short segment wall thickening and probable mild stricture in the right lower quadrant for example coronal reconstructed image 33. Colon underdistended and difficult to assess. The appendix is unremarkable. Trace ascites increased from previous exam. ABDOMINAL WALL: No significant hernia is appreciated. LYMPH NODES: Enlarged mesenteric lymph nodes similar to previous exam. VASCULAR: Unremarkable. PELVIC VISCERA: Unremarkable. OSSEOUS STRUCTURES: Degenerative disc disease at L5-S1. CT/CT abdomen pelvis w IV con IMPRESSION: Distal small bowel obstruction secondary to active inflammatory bowel disease similar location to October 2023 exam. Small bowel dilatation appears increased compared to October exam. Second area of abnormal small bowel with wall thickening and mild stricture in the right lower quadrant. Increasing small amount of ascites. Gallstones. Fleischner guidelines were followed.
[2023-11-08 15:59] VITALS: BP 110/74; BP 99/65; PULSE 78; PULSE 81; RESP 20; TEMP 37; O2SAT 94; O2SAT 98; BMI 22.3
--- NOTE | 2023-11-08 15:59 | ED_ITS ---
HPI - Abdominal Pain General Chief Complaint: Abdominal Pain Stated Complaint: crohns flare up, weakness,vomiting, abd pain Time Seen by Provider: 11/08/23 20:18 History of Present Illness HPI narrative: 48 y/o F patient; H Crohn's disease (followed by GI on Kylie and Prednisone); presents from home reporting mid-abdominal pain associated with nausea/vomiting. She reports decreased PO intake. She has not had a bowel movement today, yesterday had one diarrhea bowel movement. The patient was last admitted to this hospital from 11/01 - 11/04/2023 for distal small bowel obstruction suggestive of active inflammatory bowel disease. She was evaluated by GI and general surgery. She was treated with IV Flagyl and IV Solu-Medrol. The patient denies: fever or chills, hematochezia or melena. Related Data Home Medications Medication Instructions Recorded Confirmed multivitamin with minerals-folic 2 tab PO DAILY 05/26/23 11/18/23 acid 200 mcg chewable tablet (Multivitamin Gummies) acetaminophen 325 mg tablet 650 mg PO QID PRN Pain 11/01/23 11/18/23 adalimumab 40 mg/0.8 mL 40 mg subcut Q2W 11/01/23 11/18/23 subcutaneous syringe kit (Humira) ascorbic acid (vitamin C) 100 mg 100 mg PO DAILY 11/01/23 11/18/23 tablet (Vitamin C) cholecalciferol (vitamin D3) 10 10 mcg PO DAILY 11/01/23 11/18/23 mcg (400 unit) tablet (Vitamin D3) cyanocobalamin (vitamin B-12) 1,000 mcg PO DAILY 11/01/23 11/18/23 1,000 mcg tablet Previous Rx's Medication Instructions Recorded ondansetron 4 mg disintegrating 4 mg PO Q8H PRN nausea and 11/04/23 tablet vomiting #12 tabs prednisone 20 mg tablet 40 mg (2 x 20 mg) PO DAILY 20 days 11/22/23 #40 tabs Allergies Allergy/AdvReac Type Severity Reaction Status Date / Time No Known Allergies Allergy Verified 11/16/23 14:41 [No Known Allergies*] Review of Systems Review of Systems Yes all other systems are reviewed and are negative PMFSH Past Medical History Attestation statement: The following information was validated with the patient. Source: old records reviewed Medical History Crohn disease Crohn's disease Depression Social History Social History Household Members: Family Household Members Other:: grandmother Housing: House Do you presently have visiting nurse or other home services: No Alcohol intake: former Comment: pt refuses alarms Patient Tobacco Use Status: Former Tobacco user Quit Date: 3 days ago Tobacco use type: Cigarette Cigarette Packs Per Day: 0.5 Cigarettes Per Day: 2 Years Smoked: 34 e-Cigarette/Vaping Use: Currently Using Second Hand Smoke Exposure: No Advance Directives Date on File: 07/04/23 service: No Physical Exam ED Vital Signs: Vital Signs - 24 hr 11/08/23 15:59 11/08/23 20:08 11/08/23 21:09 Temperature 98.6 F Pulse Rate 81 58 Respiratory Rate 20 18 Blood Pressure 99/65 104/44 L Pulse Oximetry 94 100 Oxygen Delivery Method Room Air Room Air 11/08/23 22:00 Temperature 99.0 F Pulse Rate 71 Respiratory Rate 16 Blood Pressure 104/52 L Pulse Oximetry 100 Oxygen Delivery Method Room Air BMI result Body Mass Index 22.3 Patient is afebrile and hemodynamically stable. Const General: cooperative HENMT Head: Yes normal to inspection and Yes atraumatic Eyes Pupils: Equal, round and reactive pupils present EOM: EOMs intact bilaterally Neck Neck: Yes full ROM, Yes supple and No tender Chest Chest palpation & inspection: normal inspection of the chest and normal palpation of entire chest wall Resp Effort & Inspection: normal respiratory effort, able to speak in complete sentences, no cough and no respiratory distress Auscultation: clear to auscultation bilaterally Cardio Rate: regular rate Rhythm: regular rhythm Peripheral pulses: Peripheral pulses 2+ throughout GI Inspection: Yes normal to inspection Palpation (GI): not soft, Firmness to palpation present (GI), Tenderness to palpation present (GI), no guarding and not rigid Auscultation: Hypoactive bowel sounds present Neuro Cranial nerves: Yes Equal, round and reactive pupils present Course Course Course Narrative: This is a rapid medical exam: Additional HPI, ROS, PE not included below will be deferred to primary provider. Via EMS. Concerns for Crohn's flare up with midabdominal pain, nausea, vomiting, and dizziness x 1 day. On Humira and prednisone. Denies any hematemesis, melena, BRBPR, fever, chills, urinary symptoms Reevaluation(s) Reevaluation #1: Patient is afebrile and hemodynamically stable. Reviewed triage work up including labs. Leukocytosis 18.3 noted. Suspect reactive 2/2 to recent significant steroid use. Patient does NOT meet adult SIRS criteria. Ordered CT Abdomen/Pelvis w IV Contrast. Provided 1L IVF, Zofran 4mg IV, and Dilaudid 0.5mg IV for pain control. Pending CT imaging provided dose of Solu-Medrol 60mg IV as patient vomited after her steroids this morning. Reevaluation #2: Pending radiology review. However evidence of SBO on CT scan. Will consult GI for further recommendations - suspect will recommend Flagyl IV as similar to prior admissions. Will prophylactically order blood cultures and lactic acid. Flagyl 500mg IV ordered. Discussed NGT placement with patient who declines stating she is not currently vomiting. Patient would be agreeable to NGT if she starts to vomit again. Further pain control with Dilaudid 0.5mg IV provided. Patient states nausea is improved since arrival. Plan: Admit to hospitalist Condition: Stable Medical Decision Making Lab Data 11/12/23 05:49 11/09/23 05:41 Labs: Lab Results 11/08/23 Range/Units 17:23 WBC 18.3 H (4.8-10.8) X10*3/uL RBC 3.86 L D (4.20-5.50) X10*6/uL Hgb 11.3 L D (12.0-16.0) g/dl Hct 34.5 L D (37.0-47.0) % MCV 89.4 (80.0-98.0) fL MCH 29.3 (27.0-33.0) pg MCHC 32.8 (31.0-35.0) g/dl RDW 15.8 (11.0-16.0) % Plt Count 436 H (160-400) X10*3/uL MPV 8.8 L (9.4-12.3) fL Immature Gran % (Auto) 0.3 (0.0-0.4) % Neut % (Auto) 84.1 H (45-73) % Lymph % (Auto) 13.9 L (20-40) % Kemper % (Auto) 1.5 L (2-11) % Eos % (Auto) 0.1 (0-4) % Baso % (Auto) 0.1 (0-2) % Lymph # (Auto) 2.5 (1.2-4.9) X10*3/uL Kemper # (Auto) 0.3 (0.1-1.2) X10*3/uL Eos # (Auto) 0.0 (0.0-0.4) X10*3/uL Baso # (Auto) 0.0 (0.0-0.2) X10*3/uL Abs Immat Gran (auto) 0.06 H (0.00-0.03) X10*3/uL Absolute Neuts (auto) 15.4 H (2.0-8.3) x10*3/uL Absolute Nucleated RBC 0.000 (0.0-0.012) X10*3/uL Nucleated RBC % (auto) 0.0 (0.0-0.2) /100WBC Sodium 136 (135-145) mmol/L Potassium 4.1 (3.3-5.1) mmol/L Chloride 103 (96-108) mmol/L Carbon Dioxide 26 (22-29) mmol/L Anion Gap 11 L (12-20) BUN 18 H (9-16) mg/dL Creatinine 0.63 (0.5-1.4) mg/dL Estim Creat Clear Calc 94.3 Estimated GFR > 60 Random Glucose 133 H (60-115) mg/dL Calcium 9.5 D (8.4-10.2) mg/dL Magnesium 1.9 (1.6-2.6) mg/dL Total Bilirubin 0.4 (0.0-1.0) mg/dL AST 11 (5-31) U/L ALT 14 (0-31) U/L Alkaline Phosphatase 56 (39-117) U/L C-Reactive Protein 1.27 H (< or = 0.50) mg/dL Total Protein 6.7 (6.5-8.0) g/dL Albumin 3.9 (3.5-5.0) g/dL Radiology Impression Discussion of test interpretation with radiology: I have reviewed the radiologist's reading. Radiologist Impression: EXAMINATION: CT ABDOMEN AND PELVIS WITH CONTRAST CLINICAL INFORMATION: Abdominal pain. Rule out small bowel obstruction. COMPARISON: Previous CT of the abdomen and pelvis 11/01/2023 TECHNIQUE: Multidetector volumetric images were obtained from the superior aspect of the liver through the pubic symphysis following administration 85 mL of Omnipaque 350 intravenous contrast. Sagittal and coronal reformatted images were obtained on the technologist's workstation. Oral contrast: Yes This CT examination was performed using dose optimization techniques as appropriate, variously including the following: *Automated exposure control *Adjustment of mA and/or kV according to patient size (this includes techniques or standardized protocols for targeted exams where dose is matched to indication/reason for exam; i.e. extremities or head) *Use of iterative reconstruction technique DLP: 366 mGy-cm FINDINGS: LUNG BASES: The visualized lung bases are unremarkable. LIVER, GALLBLADDER, AND BILIARY TREE: The liver is normal in size, shape, and attenuation. No focal hepatic lesion or biliary ductal dilatation is present. Gallstones. PANCREAS: Unremarkable. SPLEEN: Unremarkable. ADRENAL GLANDS: Unremarkable. KIDNEYS AND URETERS: The kidneys are normal in size, shape, and attenuation. No hydronephrosis, hydroureter, or calculi seen. No perinephric stranding. BLADDER: Unremarkable. GASTROINTESTINAL TRACT: Markedly dilated fluid-filled small bowel. Long segment distal ileum stricture with wall thickening , mucosal enhancement and adjacent stranding of the mesenteric fat sparing the terminal ileum. This is similar in distribution to previous exam. Small bowel dilatation appears increased. Second area of short segment wall thickening and probable mild stricture in the right lower quadrant for example coronal reconstructed image 33. Colon underdistended and difficult to assess. The appendix is unremarkable. Trace ascites increased from previous exam. ABDOMINAL WALL: No significant hernia is appreciated. LYMPH NODES: Enlarged mesenteric lymph nodes similar to previous exam. VASCULAR: Unremarkable. PELVIC VISCERA: Unremarkable. OSSEOUS STRUCTURES: Degenerative disc disease at L5-S1. CT/CT abdomen pelvis w IV con IMPRESSION: Distal small bowel obstruction secondary to active inflammatory bowel disease similar location to October 2023 exam. Small bowel dilatation appears increased compared to October exam. Second area of abnormal small bowel with wall thickening and mild stricture in the right lower quadrant. Increasing small amount of ascites. Gallstones. Fleischner guidelines were followed. Medications Administered Discontinued Medications Generic Name Dose Route Start Last Admin Trade Name Darline PRN Reason Stop Dose Admin Diazepam 2.5 mg 11/08/23 23:14 11/09/23 00:42 Diazepam 10 Mg/2 Ml Cartridge IVPUSH 11/08/23 23:15 2.5 mg ONCE ONE Administration Heparin Sodium (Porcine) 5,000 unit 11/09/23 06:00 11/12/23 06:01 Heparin Sodium,Porcine 5,000 Unit/Ml Vial SUBCUT 5,000 unit Q8H ALONDRA Administration Hydromorphone HCl 0.5 mg 11/08/23 20:33 11/08/23 21:09 Hydromorphone Hcl 0.5 Mg/0.5 Ml Syringe IVPUSH 11/08/23 20:34 0.5 mg ONCE ONE Administration Protocol Hydromorphone HCl 0.5 mg 11/08/23 22:53 11/08/23 23:18 Hydromorphone Hcl 0.5 Mg/0.5 Ml Syringe IVPUSH 11/08/23 22:54 0.5 mg ONCE ONE Administration Protocol Hydromorphone HCl 0.5 mg 11/08/23 23:24 11/12/23 06:06 Hydromorphone Hcl 0.5 Mg/0.5 Ml Syringe IVPUSH 0.5 mg Q3H PRN Administration Pain, Severe (Pain Scale 7-10) Protocol Sodium Chloride 1,000 mls @ 999 mls/hr 11/08/23 20:45 11/08/23 22:30 Ns IV 11/08/23 21:45 Infused .Q1H1M ALONDRA Infusion Metronidazole 500 mg in 100 mls @ 100 mls/hr 11/08/23 23:00 11/09/23 00:49 Flagyl IV 11/08/23 23:59 Infused ONCE ONE Infusion Lactated Ringer's 1,000 mls @ 125 mls/hr 11/08/23 23:30 11/11/23 07:46 Lr IVCONT Not Given .Q8H ALONDRA Iohexol 100 ml 11/08/23 21:54 11/08/23 21:55 Iohexol 350 Mg/Ml 100 Ml Infus..Btl IV 11/08/23 21:55 85 ml ONCE ONE Administration Methylprednisolone Sodium Succinate 60 mg 11/08/23 21:15 11/08/23 22:17 Methylprednisolone Sod Succ 125 Mg/2 Ml Vial IVPUSH 11/08/23 21:16 60 mg ONCE ONE Administration Methylprednisolone Sodium Succinate 40 mg 11/09/23 06:00 11/10/23 05:45 Methylprednisolone Sod Succ 40 Mg/Ml Vial IVPUSH 40 mg Q8H ALONDRA Administration Methylprednisolone Sodium Succinate 40 mg 11/10/23 18:00 11/12/23 06:07 Methylprednisolone Sod Succ 40 Mg/Ml Vial IVPUSH 40 mg Q12H ALONDRA Administration Ondansetron HCl 4 mg 11/08/23 16:01 11/08/23 16:04 Ondansetron Odt 4 Mg Tab.Rapdis TRANSLINGU 11/08/23 16:02 4 mg ONCE ONE Administration Ondansetron HCl 4 mg 11/08/23 20:33 11/08/23 21:08 Ondansetron Hcl 4 Mg/2 Ml Vial IVPUSH 11/08/23 20:34 4 mg ONCE ONE Administration Ondansetron HCl 4 mg 11/08/23 23:16 11/11/23 19:42 Ondansetron Hcl 4 Mg/2 Ml Vial IVPUSH 4 mg Q6H PRN Administration Nausea and Vomiting Pantoprazole Sodium 40 mg 11/09/23 06:30 11/12/23 06:07 Pantoprazole Sodium 40 Mg/10 Ml Vial IVPUSH 40 mg DAILY@0630 ALONDRA Administration Sodium Chloride 3 ml 11/09/23 00:00 11/12/23 09:12 0.9 % Sodium Chloride Flush 3 Ml Syringe IVFLUSH 3 ml QSHIFT ALONDRA Administration Discharge Plan Discharge Clinical Impression: Crohn disease, SBO (small bowel obstruction) Patient Disposition: Admitted As Inpatient Interventions: Admission Worksheet (ED) Last Done: 11/11/23 04:21 Discharge Date/Time: 11/11/23 05:08
[2023-11-08] MEDS: Ondansetron ODT 4 MG TAB.RAPDIS TRANSLINGU (16:04)
[2023-11-08 17:27] LABS: MANUAL DIFF FLAG NO
[2023-11-08 17:31] LABS: Basophils Percent Auto 0.1 % (0-2); Eosinophils Percent Auto 0.1 % (0-4); Hematocrit 34.5 % (37.0-47.0); Hemoglobin 11.3 g/dl (12.0-16.0); Imm Gran Abs Auto 0.06 X10*3/uL (0.00-0.03); Imm Gran Pct Auto 0.3 % (0.0-0.4); Lymphocytes Absolute Auto 2.5 X10*3/uL (1.2-4.9); Lymphocytes Percent Auto 13.9 % (20-40); Mean Corpuscular HGB Conc 32.8 g/dl (31.0-35.0); Mean Corpuscular Hemoglobin 29.3 pg (27.0-33.0); Mean Corpuscular Volume 89.4 fL (80.0-98.0); Mean Platelet Volume 8.8 fL (9.4-12.3); Monocytes Absolute Auto 0.3 X10*3/uL (0.1-1.2); Monocytes Percent Auto 1.5 % (2-11); Neutrophils Absolute Auto 15.4 x10*3/uL (2.0-8.3); Neutrophils Percent Auto 84.1 % (45-73); Platelet Count 436 X10*3/uL (160-400); Red Blood Count 3.86 X10*6/uL (4.20-5.50); Red Cell Distribution Width 15.8 % (11.0-16.0); White Blood Count 18.3 X10*3/uL (4.8-10.8)
[2023-11-08 17:44] LABS: Alanine Aminotransferase 14 U/L (0-31); Albumin Level 3.9 g/dL (3.5-5.0); Alkaline Phosphatase 56 U/L (39-117); Anion Gap 11 (12-20); Aspartate Amino Transferase 11 U/L (5-31); Bilirubin Total 0.4 mg/dL (0.0-1.0); Blood Urea Nitrogen 18 mg/dL (9-16); Calcium 9.5 mg/dL (8.4-10.2); Carbon Dioxide 26 mmol/L (22-29); Chloride 103 mmol/L (96-108); Creatinine Clr Calc Pharmacy 94.3; Estimated Glomerular Filt Rate > 60; Glucose Random 133 mg/dL (60-115); Magnesium 1.9 mg/dL (1.6-2.6); Potassium 4.1 mmol/L (3.3-5.1); Sodium 136 mmol/L (135-145); Total Protein 6.7 g/dL (6.5-8.0)
[2023-11-08 20:08] VITALS: BP 104/44; PULSE 58; O2SAT 100
[2023-11-08] MEDS: 0.9 % Sodium Chloride 1,000 ML 999 ML IV (21:03)
[2023-11-08] MEDS: ondansetron HCL 4 MG/2 ML VIAL IVPUSH (21:08)
[2023-11-08 21:09] VITALS: RESP 18
[2023-11-08] MEDS: HYDROmorphone HCl 0.5 MG/0.5 ML SYRINGE IVPUSH ×2 (21:09→23:18)
[2023-11-08] MEDS: iohexoL 350 MG/ML 100 ML INFUS..BTL IV (21:55)
[2023-11-08 22:00] VITALS: BP 104/52; PULSE 71; RESP 16; TEMP 37.2; O2SAT 100
--- NOTE | 2023-11-08 22:15 | PHA.MEDREC ---
Pharmacy Consult ? Medication Reconciliation Pharmacy has completed the medication reconciliation. Patient just discharhge 11/03 from [facility] [place], utilizde discharge summary for med rec. Kristine Whiting, [employer]
[2023-11-08] MEDS: methylPREDNISolone Sod Succ 125 MG/2 ML VIAL 60 MG IVPUSH (22:17)
[2023-11-08 23:18] VITALS: RESP 16
--- NOTE | 2023-11-08 23:25 | P.HPHOSP_ITS ---
History of Present Illness Date of Service: 11/08/23 Attending physician on admission: Stephanie Fox Chief Complaint: Abdominal pain Nuvia Earl is a 48 years old woman with past medical history significant for Crohn's disease on prednisone and Humira presents to the emergency department complaining of severe generalized abdominal pain that started today. She also report nausea and nonbloody vomiting. She denied episodes of diarrhea. Her last bowel movement was Monday. She did not report fevers or chills. She also denies headache, palpitations, dizziness, chest pain or shortness on breath. No acute urinary symptoms reported. She denied tobacco smoking, alcohol abuse or illicit drug use. Patient denies history of abdominal surgeries. Chart review: Patient was recently discharged from the hospital due to SBO secondary to active inflammatory bowel disease. At that time she received treatment with IV Solu-Medrol and evaluated by GI and surgery. No surgical interventions done. Her symptoms improved and she was sent home to take a course of prednisone. Patient has been taking her prednisone 40 mg p.o. daily. She mentioned that prior to the pain she ate a little bit of rice and pastelon. In the ED, she was found to have stable vital signs. Blood workup was remarkable for leukocytosis, 18.3. Her hemoglobin is 11.3 (it was 9.2 about a week ago). There are no significant electrolyte imbalances. Renal function is normal. There is lactic acidosis. CRP is elevated, 1.27. Abdominal pelvis CT scan today showed distal small-bowel obstruction secondary to active inflammatory bowel disease. ED tx: Flagyl 500 mg IV, Dilaudid 1 mg total IV, Zofran 4 mg x2 and Solu-Medrol 60 mg IV. Review of Systems 2 Review of Systems: All 12 systems were reviewed and normal except as noted in HPI. [facility] Medical History Crohn's disease Depression Social History Household Members: Family Household Members Other:: grandmother Housing: House Do you presently have visiting nurse or other home services: No Alcohol intake: former Comment: pt refuses alarms Patient Tobacco Use Status: Current someday Tobacco user Tobacco use type: Cigarette Cigarette Packs Per Day: 0.5 Cigarettes Per Day: 10.0 Years Smoked: 34 e-Cigarette/Vaping Use: Currently Using Second Hand Smoke Exposure: No Advance Directives: No Advance Directives Information Provided: No service: No Meds Allergies Allergy/AdvReac Type Severity Reaction Status Date / Time No Known Allergies Allergy Verified 11/08/23 16:02 [No Known Allergies*] Active Medications: Current Medications Diazepam (Diazepam 10 Mg/2 Ml Cartridge) 2.5 mg IVPUSH ONCE ONE Stop: 11/08/23 23:15 Heparin Sodium (Porcine) (Heparin Sodium,Porcine 5,000 Unit/Ml Vial) 5,000 unit SUBCUT Q8H ALON[facility]A Metronidazole (Flagyl) 500 mg in 100 mls @ 100 mls/hr IV ONCE ONE Stop: 11/08/23 23:59 Lactated Ringer's (Lr) 1,000 mls @ 125 mls/hr IVCONT .Q8H ALON[facility]A Ondansetron HCl (Ondansetron Hcl 4 Mg/2 Ml Vial) 4 mg IVPUSH Q6H PRN PRN Reason: Nausea and Vomiting Sodium Chloride (0.9 % Sodium Chloride Flush 3 Ml Syringe) 3 ml IVFLUSH QSHIFT [facility] Home Medications Medication Instructions Recorded Confirmed Last Taken Type multivitamin with minerals-folic 2 tab PO DAILY 05/26/23 11/08/23 06/27/23 History acid 200 mcg chewable tablet (Multivitamin Gummies) acetaminophen 325 mg tablet 650 mg PO QID PRN Pain 11/01/23 11/08/23 Unknown History adalimumab 40 mg/0.8 mL 40 mg subcut Q2W 11/01/23 11/08/23 10/20/23 History subcutaneous syringe kit (Humira) ascorbic acid (vitamin C) 100 mg 100 mg PO DAILY 11/01/23 11/08/23 Unknown History tablet (Vitamin C) cholecalciferol (vitamin D3) 10 10 mcg PO DAILY 11/01/23 11/08/23 Unknown History mcg (400 unit) tablet (Vitamin D3) cyanocobalamin (vitamin B-12) 1,000 mcg PO DAILY 11/01/23 11/08/23 Unknown History 1,000 mcg tablet prednisone 5 mg tablet See Rx Instructions .ROUTE .COMPLEX 11/08/23 11/08/23 Unknown History Physical Exam 2 Vital Signs and Narrative: Vital Signs: Last Vital Signs Temp 99.0 F 11/08/23 22:00 Pulse 71 11/08/23 22:00 Resp 16 11/08/23 23:18 BP 104/52 L 11/08/23 22:00 Pulse Ox 100 11/08/23 22:00 O2 Del Method Room Air 11/08/23 22:00 BMI result Body Mass Index 22.3 Constitutional - Awake and Alert. Crying and very uncomfortable due to pain. Pleasant. HEENT - dry oral mucosa. Normal sclerae. Heart - S1S2, RRR. Lungs - Normal lung expansion, Normal respiratory effort, No respiratory distress, CTA bilaterally Abdomen- Distended. Decreased bowel sounds. Diffuse tenderness to palpation. Positive rebound. No guarding - No CVA tenderness Extremities - no calf tenderness bilaterally, no swelling Musculoskeletal - Normal inspection, normal ROM Skin - Warm/Dry Neurological - Alert & oriented x3. No focal weakness grossly noted. Normal speech. Psychological - Appropriate affect Results Labs 11/08/23 17:23 11/08/23 17:23 Labs: Laboratory Results - last 24 hr 11/08/23 17:23 MCV 89.4 MCH 29.3 MCHC 32.8 RDW 15.8 Plt Count 436 H MPV 8.8 L Immature Gran % (Auto) 0.3 Neut % (Auto) 84.1 H Lymph % (Auto) 13.9 L [place] % (Auto) 1.5 L Eos % (Auto) 0.1 Baso % (Auto) 0.1 Lymph # (Auto) 2.5 [place] # (Auto) 0.3 Eos # (Auto) 0.0 Baso # (Auto) 0.0 Abs Immat Gran (auto) 0.06 H Absolute Neuts (auto) 15.4 H Absolute Nucleated RBC 0.000 Nucleated RBC % (auto) 0.0 Anion Gap 11 L Estim Creat Clear Calc 94.3 Estimated GFR > 60 Random Glucose 133 H Calcium 9.5 D Magnesium 1.9 Total Bilirubin 0.4 AST 11 ALT 14 Alkaline Phosphatase 56 Total Protein 6.7 Albumin 3.9 Imaging Radiologist's Impressions: Impressions Abdomen/Pelvis CT 11/08/23 22:02 IMPRESSION: Distal small bowel obstruction secondary to active inflammatory bowel disease similar location to October 2023 exam. Small bowel dilatation appears increased compared to October exam. Second area of abnormal small bowel with wall thickening and mild stricture in the right lower quadrant. Increasing small amount of ascites. Gallstones. Fleischner guidelines were followed. Assessment and Plan (1) SBO (small bowel obstruction): Status: Acute (2) Exacerbation of Crohn's disease: Qualifiers: Digestive disease complication type: with intestinal obstruction Qualified Code(s): K50.912 - Crohn's disease, unspecified, with intestinal obstruction Status: Acute (3) Leukocytosis: Qualifiers: Leukocytosis type: unspecified Qualified Code(s): D72.829 - Elevated white blood cell count, unspecified Status: Acute Plan Nuvia Earl is a 48 years old woman with past medical history significant for Crohn's disease on prednisone and Humira admitted with * Small-bowel obstruction secondary to active inflammatory bowel disease. Admit to hospitalist service. Keep NPO. NG tube (patient is refusing). Start IV fluids. Continue treatment with Solu-Medrol 40 mg p.o. every 8 hours. Monitor CRP. ED, Dr. Middleton discussed with GI physician, Dr. Auguste, to continue IV steroids, NPO, NG tube if patient's distended or vomiting and to obtain surgery consult in the event of worsening or persistent obstruction; and IV antibiotics if there is concern for infection. * Anemia, chronic (noted to be lower than baseline). Continue to monitor. * Leukocytosis likely secondary to prednisone and SBO/active inflammatory bowel disease. There is no tachycardia, hypotension fever. Blood cultures were obtained. Continue to monitor for now. If patient develops fever, hypotension, positive blood cultures or tachycardia we will start empiric IV antibiotic therapy. DVT prophylaxis: heparin subQ GI prophylaxis: Protonix IV Code status: Full Patient will need hospitalization for at least 2 midnights for SBO secondary to inflammatory bowel disease treatment with IV steroids, NG tube and IV fluids. Patient also will need evaluation by the surgical and GI service. Quality Stroke Does the patient have a stroke diagnosis?: No VTE Prior VTE?: No VTE Risk Level:: Medical - moderate - high VTE Device Contraindication: Treatment Not Indicated VTE Drug Contraindication: N/A - Med Ordered
[2023-11-08 23:26] LABS: C Reactive Protein 1.27 mg/dL (< or = 0.50)
[2023-11-08] MEDS: metroNIDAZOLE/NS 500 MG/100 ML PIGGYBACK 100 MG IV (23:39)
[2023-11-08 23:55] LABS: Lactic Acid 0.6 mmol/L (0.5-2.0)
[2023-11-09] VITALS (10 sets, daily range): BP systolic 100–116; BP diastolic 55–65; PULSE 53–64; RESP 13–19; TEMP 36.6–36.9; O2SAT 95–98
[2023-11-09 00:24] LABS: Appearance Urine Clear; Color Urine Yellow; Glucose Urine UA Negative (Negative); Leukocyte Esterase Urine Negative (Negative); Nitrite Urine Negative (Negative); PH 6.5 (5.0-9.0); Specific Gravity - Urine >= 1.030 (1.005-1.025); Urine Blood Negative (Negative); Urine Ketones Negative (Negative); Urine Protein Negative (Neg-Trace)
[2023-11-09 00:27] LABS: Bacteria Urine None Seen (None Seen); Hyaline Casts Urine 0-2 /LPF (0-2); RBC Urine 0-2 /HPF (0-2); Squamous Epithelial Cell Urine 0-2 /HPF (0-2); WBC Urine 0-5 /HPF (0-5)
[2023-11-09] MEDS: diazePAM 10 MG/2 ML CARTRIDGE 2.5 MG IVPUSH (00:42)
[2023-11-09] MEDS: Lactated Ringers 1,000 ML 125 ML IVCONT ×3 (00:50→18:09)
[2023-11-09] MEDS: 0.9 % Sodium Chloride Flush 3 ML SYRINGE IVFLUSH (00:50)
[2023-11-09 06:27] LABS: MANUAL DIFF FLAG NO
[2023-11-09 06:39] LABS: Basophils Percent Auto 0.1 % (0-2); Hematocrit 29.3 % (37.0-47.0); Hemoglobin 9.5 g/dl (12.0-16.0); Imm Gran Abs Auto 0.03 X10*3/uL (0.00-0.03); Imm Gran Pct Auto 0.4 % (0.0-0.4); Lymphocytes Percent Auto 26.6 % (20-40); Mean Corpuscular HGB Conc 32.4 g/dl (31.0-35.0); Mean Corpuscular Hemoglobin 29.8 pg (27.0-33.0); Mean Corpuscular Volume 91.8 fL (80.0-98.0); Monocytes Absolute Auto 0.1 X10*3/uL (0.1-1.2); Monocytes Percent Auto 1.2 % (2-11); Neutrophils Absolute Auto 5.3 x10*3/uL (2.0-8.3); Neutrophils Percent Auto 71.7 % (45-73); Platelet Count 325 X10*3/uL (160-400); Red Blood Count 3.19 X10*6/uL (4.20-5.50); Red Cell Distribution Width 15.6 % (11.0-16.0); White Blood Count 7.4 X10*3/uL (4.8-10.8)
[2023-11-09] MEDS: Pantoprazole Sodium 40 MG/10 ML VIAL IVPUSH (06:40)
[2023-11-09] MEDS: methylPREDNISolone Sod Succ 40 MG/ML VIAL IVPUSH ×3 (06:40→21:08)
[2023-11-09] MEDS: Heparin Sodium,Porcine 5,000 UNIT/ML VIAL 5000 UNIT SUBCUT ×3 (06:40→21:08)
[2023-11-09] MEDS: HYDROmorphone HCl 0.5 MG/0.5 ML SYRINGE IVPUSH ×5 (06:46→21:08)
[2023-11-09 06:57] LABS: Alanine Aminotransferase 11 U/L (0-31); Albumin Level 3.1 g/dL (3.5-5.0); Alkaline Phosphatase 45 U/L (39-117); Anion Gap 9 (12-20); Aspartate Amino Transferase 9 U/L (5-31); Bilirubin Total 0.4 mg/dL (0.0-1.0); Blood Urea Nitrogen 12 mg/dL (9-16); Calcium 8.7 mg/dL (8.4-10.2); Carbon Dioxide 27 mmol/L (22-29); Chloride 104 mmol/L (96-108); Creatinine Clr Calc Pharmacy 104.2; Estimated Glomerular Filt Rate > 60; Glucose Random 112 mg/dL (60-115); Magnesium 1.8 mg/dL (1.6-2.6); Potassium 4.2 mmol/L (3.3-5.1); Sodium 136 mmol/L (135-145); Total Protein 5.3 g/dL (6.5-8.0)
--- NOTE | 2023-11-09 09:16 | P.CONGS_ITS ---
History of Present Illness Consult details Consult date: 11/09/23 Requesting physician: Stephanie Fox Narrative: 40-year-old female patient with a known history of Crohn's disease recently admitted with a Crohn's flare and small-bowel obstruction, discharged last Monday. She reports feeling well for the next 2 days but then on Monday began to develop some abdominal pain which became more severe over the next 24 hours and was associated with nausea, vomiting, dizziness and lightheadedness. She subsequently returned to the emergency department for further evaluation. She reports taking her prednisone as prescribed. In the emergency department she was noted to have leukocytosis of 18.3 and lactic acidosis. CRP was elevated at 1.27. CT abdomen and pelvis dilated loops of small bowel with areas of active Crohn's disease involving the ileum. She is admitted to the hospitalist service for further management. Review of Systems 2 Constitutional: Constitutional: Denies chills and Denies fever(s) Cardiovascular: Cardiovascular: Denies chest pain, Denies dyspnea and Denies dyspnea on exertion Respiratory: Respiratory: Denies cough, Denies dyspnea and Denies dyspnea on exertion Gastrointestinal: Gastrointestinal: Reports change in bowel habits, Reports constipation, Reports nausea and Reports vomiting Genitourinary: Genitourinary: Denies hematuria Musculoskeletal: Musculoskeletal: Denies back pain and Denies limited range of motion Neurologic: Denies focal weakness and Denies convulsions Psychiatric: Psychiatric: Denies depression and Denies mood swings PMF Past Medical History Medical History Crohn's disease Depression Social History Social History Household Members: Family Household Members Other:: grandmother Housing: House Do you presently have visiting nurse or other home services: No Alcohol intake: former Comment: pt refuses alarms Patient Tobacco Use Status: Former Tobacco user Quit Date: 3 days ago Tobacco use type: Cigarette Cigarette Packs Per Day: 0.5 Cigarettes Per Day: 10.0 Years Smoked: 34 Smoked in Last 30 Days: No e-Cigarette/Vaping Use: Currently Using Second Hand Smoke Exposure: No Use of substances other than those prescribed or required for medical reasons: No Advance Directives: No Advance Directives Information Provided: No Nutrition Risks: No Nutritional Risk Patient : No service: No Meds Allergies Allergy/AdvReac Type Severity Reaction Status Date / Time No Known Allergies Allergy Verified 11/08/23 16:02 [No Known Allergies*] Active Medications: Current Medications Heparin Sodium (Porcine) (Heparin Sodium,Porcine 5,000 Unit/Ml Vial) 5,000 unit SUBCUT Q8H [facility] Last Admin: 11/09/23 06:40 Dose: 5,000 unit Hydromorphone HCl (Hydromorphone Hcl 0.5 Mg/0.5 Ml Syringe) 0.5 mg IVPUSH Q3H PRN; Protocol PRN Reason: Pain, Severe (Pain Scale 7-10) Last Admin: 11/09/23 06:46 Dose: 0.5 mg Lactated Ringer's (Lr) 1,000 mls @ 125 mls/hr IVCONT .Q8H [facility] Last Admin: 11/09/23 00:50 Dose: 125 mls/hr Methylprednisolone Sodium Succinate (Methylprednisolone Sod Succ 40 Mg/Ml Vial) 40 mg IVPUSH Q8H [facility] Last Admin: 11/09/23 06:40 Dose: 40 mg Ondansetron HCl (Ondansetron Hcl 4 Mg/2 Ml Vial) 4 mg IVPUSH Q6H PRN PRN Reason: Nausea and Vomiting Pantoprazole Sodium (Pantoprazole Sodium 40 Mg/10 Ml Vial) 40 mg IVPUSH DAILY@0630 [facility] Last Admin: 11/09/23 06:40 Dose: 40 mg Sodium Chloride (0.9 % Sodium Chloride Flush 3 Ml Syringe) 3 ml IVFLUSH QSHIFT [facility] Last Admin: 11/09/23 09:08 Dose: Not Given Home Medications Medication Instructions Recorded Confirmed Last Taken Type multivitamin with minerals-folic 2 tab PO DAILY 05/26/23 11/08/23 06/27/23 History acid 200 mcg chewable tablet (Multivitamin Gummies) acetaminophen 325 mg tablet 650 mg PO QID PRN Pain 11/01/23 11/08/23 Unknown History adalimumab 40 mg/0.8 mL 40 mg subcut Q2W 11/01/23 11/08/23 10/20/23 History subcutaneous syringe kit (Humira) ascorbic acid (vitamin C) 100 mg 100 mg PO DAILY 11/01/23 11/08/23 Unknown History tablet (Vitamin C) cholecalciferol (vitamin D3) 10 10 mcg PO DAILY 11/01/23 11/08/23 Unknown History mcg (400 unit) tablet (Vitamin D3) cyanocobalamin (vitamin B-12) 1,000 mcg PO DAILY 11/01/23 11/08/23 Unknown History 1,000 mcg tablet prednisone 5 mg tablet See Rx Instructions .ROUTE .COMPLEX 11/08/23 11/08/23 Unknown History Physical Exam 2 Vital Signs: Vital Signs: Last Vital Signs Temp 97.9 F 11/09/23 08:46 Pulse 53 11/09/23 08:46 Resp 13 11/09/23 08:46 BP 100/55 L 11/09/23 08:46 Pulse Ox 97 11/09/23 08:46 O2 Del Method Room Air 11/09/23 08:46 BMI result Body Mass Index 22.3 Const: General: ill appearing and tired appearing Nutritional Appearance: w ell nourished Orientation/consciousness: patient oriented x3 Limitations: no limitations HEENT: Head: Yes normocephalic and Yes atraumatic Resp: Effort & Inspection: normal respiratory effort, no audible wheezes, no cough and no respiratory distress GI: Inspection: Yes normal to inspection Palpation (GI): Soft to palpation, Tenderness to palpation present (GI), no guarding and not rigid Percussion: Y es dullness to percussion Auscultation: Absent bowel sounds Skin: General skin exam: no rashes or lesions noted Neuro: General: patient oriented x3 Extrem: General: Yes no clubbing, cyanosis or edema Results Labs 11/09/23 05:41 11/09/23 05:41 Labs: Abnormal lab results 11/08/23 11/09/23 11/09/23 Range/Units 17:23 00:07 05:41 WBC 18.3 H (4.8-10.8) X10*3/uL RBC 3.86 L D 3.19 L (4.20-5.50) X10*6/uL Hgb 11.3 L D 9.5 L (12.0-16.0) g/dl Hct 34.5 L D 29.3 L (37.0-47.0) % Plt Count 436 H (160-400) X10*3/uL MPV 8.8 L (9.4-12.3) fL Neut % (Auto) 84.1 H (45-73) % Lymph % (Auto) 13.9 L (20-40) % [place] % (Auto) 1.5 L 1.2 L (2-11) % Abs Immat Gran (auto) 0.06 H (0.00-0.03) X10*3/uL Absolute Neuts (auto) 15.4 H (2.0-8.3) x10*3/uL Anion Gap 11 L 9 L (12-20) BUN 18 H (9-16) mg/dL Random Glucose 133 H (60-115) mg/dL C-Reactive Protein 1.27 H (< or = 0.50) mg/dL Total Protein 5.3 L (6.5-8.0) g/dL Albumin 3.1 L (3.5-5.0) g/dL Ur Specific [place] >= 1.030 H (1.005-1.025) Short CBC 11/08/23 11/09/23 Range/Units 17:23 05:41 WBC 18.3 H 7.4 (4.8-10.8) X10*3/uL Hgb 11.3 L D 9.5 L (12.0-16.0) g/dl Hct 34.5 L D 29.3 L (37.0-47.0) % Plt Count 436 H 325 D (160-400) X10*3/uL BMP 11/08/23 11/09/23 17:23 05:41 Sodium 136 136 Potassium 4.1 4.2 Chloride 103 104 Carbon Dioxide 26 27 BUN 18 H 12 Creatinine 0.63 0.57 Calcium 9.5 D 8.7 D Liver Function 11/08/23 11/09/23 Range/Units 17:23 05:41 Total Bilirubin 0.4 0.4 (0.0-1.0) mg/dL AST 11 9 (5-31) U/L ALT 14 11 (0-31) U/L Alkaline Phosphatase 56 45 (39-117) U/L Albumin 3.9 3.1 L (3.5-5.0) g/dL Urine 11/09/23 Range/Units 00:07 Urine Color Yellow Urine Appearance Clear Urine pH 6.5 (5.0-9.0) Ur Specific [place] >= 1.030 H (1.005-1.025) Urine Protein Negative (Neg-Trace) mg/dL Urine Glucose (UA) Negative (Negative) mg/dL All other labs normal. Assessment and Plan (1) Exacerbation of Crohn's disease: Qualifiers: Digestive disease complication type: with intestinal obstruction Qualified Code(s): K50.912 - Crohn's disease, unspecified, with intestinal obstruction Status: Acute (2) SBO (small bowel obstruction): Status: Acute Plan 40-year-old female patient with known history of Crohn's disease returning with a Crohn's flare and subsequent small-bowel obstruction. Recommend medical management of Crohn's flare and supportive care. We will follow along during her hospital course. Procedures Date of Service Date of Service: 11/09/23
--- NOTE | 2023-11-09 09:46 | PM.EVENT ---
Event Note Date of Service: 11/09/23 Event Note: GI consult dictated Crohns with sbo iv steroids continue Humira gen surg consultation obtained drug/ab levels pending through primary gi provider Time Spent With Patient Time: Total time managing care of this patient today ____ minutes.
--- NOTE | 2023-11-09 10:37 | PC.NURSE ---
resting, abd pain 03/13. piv c/d/i.
--- NOTE | 2023-11-09 11:17 | CONS_ITS ---
DATE OF SERVICE: 11/09/2023 REFERRING PHYSICIAN: Stephanie Fox MD REASON FOR CONSULTATION: Crohn disease with small bowel obstruction. HISTORY OF PRESENT ILLNESS: The patient is a pleasant 48-year-old woman, who presented to the emergency room yesterday with nausea, vomiting, abdominal pain and distention. Symptoms began the day prior to admission. She was recently hospitalized here and at another facility for Crohn disease with small bowel obstruction, so was discharged then approximately 4 days prior to admission on prednisone 40 mg daily, which she has been taking at home. She was seen by her primary GI provider in [place] the day before admission and had lab work done. She complained of abdominal pain at that time and was advised to take Tylenol. Her pain worsened and she developed abdominal distention with nausea and vomiting consistent with her previous episodes of obstruction and presented to the Emergency Department. She denies any unusual food ingestions since her discharge. In the emergency department, she was evaluated with laboratory studies and CT scanning, which showed changes consistent with a small bowel obstruction. She has been started on intravenous steroids and admitted to the hospital. She continues on her Humira as an outpatient with drug levels and antibody is pending. PAST MEDICAL HISTORY: Crohn disease diagnosed in 2021. For details of her previous evaluation, please see consultation, dated 11/01. CURRENT MEDICATIONS: Current medication list is reviewed in the chart. ALLERGIES: THERE ARE NONE REPORTED. FAMILY HISTORY: This is negative for inflammatory bowel disease. SOCIAL HISTORY: Tobacco use was positive. She denies significant alcohol intake. REVIEW OF SYSTEMS: SKIN: No pruritus. HEENT: Negative. CARDIOPULMONARY: No shortness of breath or chest pain. GASTROINTESTINAL: As above. GENITOURINARY: Negative. NEUROPSYCHIATRIC: Negative. PHYSICAL EXAMINATION: GENERAL: A pleasant female, lying comfortably on a stretcher in the emergency department. VITAL SIGNS: Reviewed in electronic medical record and are stable. SKIN: Anicteric. HEENT: No scleral icterus. NECK: Without lymphadenopathy or thyromegaly. LUNGS: Clear. HEART: Regular rate and rhythm. S1, S2. No murmur. ABDOMEN: Soft without focal masses or tenderness. Bowel sounds are present. No organomegaly is noted. EXTREMITIES: Without edema. LABORATORY DATA AND IMAGING STUDIES: Reviewed. IMPRESSION: Crohn disease with small bowel obstruction. PLAN: At this time, she appears to have significant improvement since being evaluated in the emergency department. Her abdomen is not distended and quite soft. I agree with treating her with intravenous steroids. She will continue Humira and follow up with her primary GI provider. Levels are pending for her Humira and she has been seen in consultation by General Surgery. Thanks for asking me to see her. I will follow her in the hospital with you. MD FROYLAN Paul/ROMEO / [id number]
--- NOTE | 2023-11-09 11:41 | HO.PM.IMPN ---
Subjective Subjective Date of Service: 11/09/23 Interval History: seen and examined this morning follow up for crohns flare, SBO abdominal distension and pain improving no vomiting Review of Systems Review of Systems: Yes all other systems are reviewed and are negative Constitutional Constitutional: Denies chills and Denies fever(s) Cardiovascular Cardiovascular: Denies chest pain, Denies palpitations and Denies dyspnea Respiratory Respiratory: Denies cough and Denies dyspnea Endocrine Endocrine: Denies palpitations Physical Exam Vital Signs: Vital Signs: Last Vital Signs Temp 98 F 11/09/23 11:00 Pulse 55 11/09/23 10:56 Resp 19 11/09/23 11:03 BP 106/65 11/09/23 10:56 Pulse Ox 96 11/09/23 10:56 O2 Del Method Room Air 11/09/23 10:56 BMI result Body Mass Index 22.3 Const: General: cooperative, comfortable and no acute distress; No alert or awake Nutritional Appearance: average body habitus Orientation/consciousness: patient oriented x3 Resp: Effort & Inspection: normal respiratory effort, able to speak in complete sentences, no respiratory distress and no use of accessory muscles Auscultation: clear to auscultation bilaterally Cardio: Rate: regular rate GI: Other: soft, non-distended +BS, tender upper abdomen Neuro: General: patient oriented x3, moves all extremities and CN's II-XI intact bilaterally Extrem: General: Yes no pedal edema Psych: Appearance: grossly normal Affect: normal affect Objective Data Active Medications Heparin Sodium (Porcine) (Heparin Sodium,Porcine 5,000 Unit/Ml Vial) 5,000 unit SUBCUT Q8H [facility] Last Admin: 11/09/23 06:40 Dose: 5,000 unit Documented By: LOUISE Hydromorphone HCl (Hydromorphone Hcl 0.5 Mg/0.5 Ml Syringe) 0.5 mg IVPUSH Q3H PRN; Protocol PRN Reason: Pain, Severe (Pain Scale 7-10) Last Admin: 11/09/23 11:03 Dose: 0.5 mg Documented By: RAYNE Lactated Ringer's (Lr) 1,000 mls @ 125 mls/hr IVCONT .Q8H [facility] [place] Last Admin: 11/09/23 10:32 Dose: 125 mls/hr Documented By: RAYNE Methylprednisolone Sodium Succinate (Methylprednisolone Sod Succ 40 Mg/Ml Vial) 40 mg IVPUSH Q8H [facility] [place] Last Admin: 11/09/23 06:40 Dose: 40 mg Documented By: LOUISE Ondansetron HCl (Ondansetron Hcl 4 Mg/2 Ml Vial) 4 mg IVPUSH Q6H PRN PRN Reason: Nausea and Vomiting Pantoprazole Sodium (Pantoprazole Sodium 40 Mg/10 Ml Vial) 40 mg IVPUSH DAILY@0630 [facility] [place] Last Admin: 11/09/23 06:40 Dose: 40 mg Documented By: LOUISE Sodium Chloride (0.9 % Sodium Chloride Flush 3 Ml Syringe) 3 ml IVFLUSH QSHIFT [facility] [place] Last Admin: 11/09/23 09:08 Dose: Not Given Documented By: RAYNE Non-Admin Reason: prev shift Labs 11/09/23 05:41 11/09/23 05:41 Labs: Laboratory Results - last 24 hr 11/08/23 11/08/23 11/09/23 17:23 23:29 00:07 MCV 89.4 MCH 29.3 MCHC 32.8 RDW 15.8 Plt Count 436 H MPV 8.8 L Immature Gran % (Auto) 0.3 Neut % (Auto) 84.1 H Lymph % (Auto) 13.9 L [place] % (Auto) 1.5 L Eos % (Auto) 0.1 Baso % (Auto) 0.1 Lymph # (Auto) 2.5 [place] # (Auto) 0.3 Eos # (Auto) 0.0 Baso # (Auto) 0.0 Abs Immat Gran (auto) 0.06 H Absolute Neuts (auto) 15.4 H Absolute Nucleated RBC 0.000 Nucleated RBC % (auto) 0.0 Anion Gap 11 L Estim Creat Clear Calc 94.3 Estimated GFR > 60 Random Glucose 133 H Lactic Acid 0.6 Calcium 9.5 D Magnesium 1.9 Total Bilirubin 0.4 AST 11 ALT 14 Alkaline Phosphatase 56 C-Reactive Protein 1.27 H Total Protein 6.7 Albumin 3.9 Urine Color Yellow Urine Appearance Clear Urine pH 6.5 Ur Specific [place] >= 1.030 H Urine Protein Negative Urine Glucose (UA) Negative Urine Ketones Negative Urine Blood Negative Urine Nitrite Negative Ur Leukocyte Esterase Negative Urine RBC 0-2 Urine WBC 0-5 Ur Squamous Epith Cells 0-2 Urine Bacteria None Seen Hyaline Casts 0-2 11/09/23 05:41 MCV 91.8 MCH 29.8 MCHC 32.4 RDW 15.6 Plt Count 325 D MPV 10.0 Immature Gran % (Auto) 0.4 Neut % (Auto) 71.7 Lymph % (Auto) 26.6 [place] % (Auto) 1.2 L Eos % (Auto) 0.0 Baso % (Auto) 0.1 Lymph # (Auto) 2.0 [place] # (Auto) 0.1 Eos # (Auto) 0.0 Baso # (Auto) 0.0 Abs Immat Gran (auto) 0.03 Absolute Neuts (auto) 5.3 Absolute Nucleated RBC 0.000 Nucleated RBC % (auto) 0.0 Anion Gap 9 L Estim Creat Clear Calc 104.2 Estimated GFR > 60 Random Glucose 112 Lactic Acid Calcium 8.7 D Magnesium 1.8 Total Bilirubin 0.4 AST 9 ALT 11 Alkaline Phosphatase 45 C-Reactive Protein Total Protein 5.3 L Albumin 3.1 L Urine Color Urine Appearance Urine pH Ur Specific [place] Urine Protein Urine Glucose (UA) Urine Ketones Urine Blood Urine Nitrite Ur Leukocyte Esterase Urine RBC Urine WBC Ur Squamous Epith Cells Urine Bacteria Hyaline Casts Assessment and Plan (1) Exacerbation of Crohn's disease: Status: Acute (2) SBO (small bowel obstruction): Status: Acute Plan This is a 40-year-old woman with a history of Crohn's disease admitted with recurrent Crohn's flare and small-bowel obstruction. Distal small-bowel obstruction secondary to active inflammatory bowel disease admission for same last week NPO, IV solu-medrol, supportive care seen by GI, plan for medical management general surgery following - recommend medical management, no plan for surgery at this time will need to follow up with outpatient GI provider acute on chronic normocytic anemia drop in H/H likely due to dilution due to IVF follow CBC History of Crohn's disease on Humira, got dose last week DVT prophylaxis with Lovenox Full code Requires ongoing admission for treatment of acute small-bowel obstruction secondary to Crohn's disease , IV antibiotics and IV steroids, this can not be done at a lesser acute setting due to risk for decompensation Quality Stroke Does the patient have a stroke diagnosis?: No VTE Prior VTE?: No VTE Risk Level:: Medical - moderate - high VTE Device Contraindication: Treatment Not Indicated VTE Drug Contraindication: N/A - Med Ordered
--- NOTE | 2023-11-09 12:18 | MHC.CM.PN ---
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
--- NOTE | 2023-11-09 12:43 | PC.NURSE ---
alert and oriented, respirations even and unlabored. IV fluids infusing. patient ambulates independently with strong, steady gait. remains NPO, patient aware of this status. on phone/watching tv at this time. no obvious signs/symptoms of distress noted.
--- NOTE | 2023-11-09 14:34 | PC.NURSE ---
medicated per the MAR, utilizing PRN pain medication at this time. offering no other complaints, continues to rest quietly in bed
--- NOTE | 2023-11-09 21:26 | PC.NURSE ---
Assumed care of the pt. Pt is resting comfortably in bed, able to ambulate independently. Fluids going into the left forearm appropriately. Pt complaining of 5/10 pain, medicated with PRN dilaudid. Pt has no other complaints at this time. Pending bed assignment.
[2023-11-10] MEDS: Lactated Ringers 1,000 ML 125 ML IVCONT (02:20)
[2023-11-10 05:16] VITALS: BP 101/57; PULSE 73; RESP 12; TEMP 36.6; O2SAT 95
[2023-11-10] MEDS: methylPREDNISolone Sod Succ 40 MG/ML VIAL IVPUSH ×2 (05:45→18:46)
[2023-11-10] MEDS: Pantoprazole Sodium 40 MG/10 ML VIAL IVPUSH (05:45)
[2023-11-10] MEDS: HYDROmorphone HCl 0.5 MG/0.5 ML SYRINGE IVPUSH ×3 (05:45→21:11)
--- NOTE | 2023-11-10 05:48 | PC.NURSE ---
Pt ambulated to the bathroom independently. Reporting 5/10 pain, medicated with PRN dilaudid
[2023-11-10 07:38] VITALS: BP 101/57; PULSE 67; RESP 16; TEMP 36.8; O2SAT 98
--- NOTE | 2023-11-10 07:49 | PM.PNGS ---
Subjective Subjective Date of Service: 11/10/23 Interval history: Patient feels much improved this morning, passing some flatus but no bowel movement. Abdominal pain much improved. Physical Exam Vital Signs: Vital Signs: Last Vital Signs Temp 98.2 F 11/10/23 07:38 Pulse 67 11/10/23 07:38 Resp 16 11/10/23 07:38 BP 101/57 L 11/10/23 07:38 Pulse Ox 98 11/10/23 07:38 O2 Del Method Room Air 11/10/23 07:38 BMI result Body Mass Index 22.3 Const: General: no acute distress Nutritional Appearance: well nourished Orientation/consciousness: patient oriented x3 Limitations: no limitations Resp: Effort & Inspection: normal respiratory effort GI: Inspection: Yes normal to inspection Palpation (GI): Soft to palpation, nontender, no guarding and not rigid Neuro: General: patient oriented x3 Extrem: General: Yes no clubbing, cyanosis or edema Objective Data Active Medications Heparin Sodium (Porcine) (Heparin Sodium,Porcine 5,000 Unit/Ml Vial) 5,000 unit SUBCUT Q8H [facility] Last Admin: 11/10/23 05:48 Dose: Not Given Documented By: JUSTIN Non-Admin Reason: Patient Refused Hydromorphone HCl (Hydromorphone Hcl 0.5 Mg/0.5 Ml Syringe) 0.5 mg IVPUSH Q3H PRN; Protocol PRN Reason: Pain, Severe (Pain Scale 7-10) Last Admin: 11/10/23 05:45 Dose: 0.5 mg Documented By: JUSTIN Lactated Ringer's (Lr) 1,000 mls @ 125 mls/hr IVCONT .Q8H [facility] Last Admin: 11/10/23 02:20 Dose: 125 mls/hr Documented By: JUSTIN Methylprednisolone Sodium Succinate (Methylprednisolone Sod Succ 40 Mg/Ml Vial) 40 mg IVPUSH Q8H [facility] Last Admin: 11/10/23 05:45 Dose: 40 mg Documented By: JUSTIN Ondansetron HCl (Ondansetron Hcl 4 Mg/2 Ml Vial) 4 mg IVPUSH Q6H PRN PRN Reason: Nausea and Vomiting Pantoprazole Sodium (Pantoprazole Sodium 40 Mg/10 Ml Vial) 40 mg IVPUSH DAILY@0630 [facility] Last Admin: 11/10/23 05:45 Dose: 40 mg Documented By: JUSTIN Sodium Chloride (0.9 % Sodium Chloride Flush 3 Ml Syringe) 3 ml IVFLUSH QSHIFT [facility] Last Admin: 11/09/23 21:10 Dose: Not Given Documented By: JUSTIN Non-Admin Reason: IV Running Labs 11/09/23 05:41 11/09/23 05:41 Microbiology Microbiology Results: Microbiology 11/08/23 23:29 Blood Culture - Preliminary Blood - Venous No growth after 24 hours. 11/08/23 23:29 Blood Culture - Preliminary Blood - Venous No growth after 24 hours. Procedures Date of Service Date of Service: 11/10/23 Progress Note: A&P Assessment and plan (1) Exacerbation of Crohn's disease: Status: Acute (2) SBO (small bowel obstruction): Status: Acute Plan Patient is seems to be improving with IV steroid. She is now passing flatus but no bowel movement. Continue current management. Time Spent With Patient Time: Total time managing care of this patient today ____ minutes. Quality Stroke Does the patient have a stroke diagnosis?: No VTE Prior VTE?: No VTE Risk Level:: Medical - moderate - high VTE Device Contraindication: Treatment Not Indicated VTE Drug Contraindication: N/A - Med Ordered
--- NOTE | 2023-11-10 13:57 | P.PNGI_ITS ---
Subjective Subjective Date of Service: 11/10/23 Interval History: feels better started clear liquids today Critical Care Time (minutes): 0 Physical Exam 2 Vital Signs: Vital Signs: Last Vital Signs Temp 98.2 F 11/10/23 07:38 Pulse 67 11/10/23 07:38 Resp 16 11/10/23 07:38 BP 101/57 L 11/10/23 07:38 Pulse Ox 98 11/10/23 07:38 O2 Del Method Room Air 11/10/23 07:38 BMI result Body Mass Index 22.3 GI: Other: abdomen is soft and nontender Objective Data Labs 11/09/23 05:41 11/09/23 05:41 Microbiology Microbiology Results: Microbiology 11/08/23 23:29 Blood - Venous Blood Culture - Preliminary No growth after 24 hours. 11/08/23 23:29 Blood - Venous Blood Culture - Preliminary No growth after 24 hours. Procedures Date of Service Date of Service: 11/10/23 Progress Note: A&P Assessment and plan (1) Exacerbation of Crohn's disease: Status: Acute Assessment and Plan: improving on iv steroids can d/c ivf adalimumab trough level was low at last visit and no antibodies were detected. copy of results given to patient so she can discuss increasing to weekly dosing. She is thinking of pursuing elective surgical resection. Time Spent With Patient Time: Total time managing care of this patient today ____ minutes. Quality Stroke Does the patient have a stroke diagnosis?: No VTE Prior VTE?: No VTE Risk Level:: Medical - moderate - high VTE Device Contraindication: Treatment Not Indicated VTE Drug Contraindication: N/A - Med Ordered
--- NOTE | 2023-11-10 16:22 | P.DS_ITS ---
DS: Providers Provider Date of Service: 11/10/23 Date of admission: 11/08/23 23:14 Date of discharge: 11/10/23 Primary care physician: Gwendolyn Luis MD Consults: 11/08/23 23:17 Consult to Gastroenterology Routine Consulting Provider: Christophe Winters Reason for consultation: Hx of Crohn's disease, recurrent SBO Has provider been notified: No 11/08/23 23:18 Consult to General Surgery Routine Consulting Provider: [facility] Reason for consultation: Hx of Crohn;s disease, recurrent SBO Has provider been notified: No Attending physician on discharge: Pk Lopez Discharging clinician: Genia Roche DS: Diagnosis Discharge Diagnosis (1) Exacerbation of Crohn's disease: Status: Acute (2) SBO (small bowel obstruction): Status: Acute DS: Summary Hospital Course Hospital Course: From H&P on the day of admission Nuvia Earl is a 48 years old woman with past medical history significant for Crohn's disease on prednisone and Humira presents to the emergency department complaining of severe generalized abdominal pain that started today. She also report nausea and nonbloody vomiting. She denied episodes of diarrhea. Her last bowel movement was Monday. She did not report fevers or chills. She also denies headache, palpitations, dizziness, chest pain or shortness on breath. No acute urinary symptoms reported. She denied tobacco smoking, alcohol abuse or illicit drug use. Patient denies history of abdominal surgeries. Chart review: Patient was recently discharged from the hospital due to SBO secondary to active inflammatory bowel disease. At that time she received treatment with IV Solu-Medrol and evaluated by GI and surgery. No surgical interventions done. Her symptoms improved and she was sent home to take a course of prednisone. Patient has been taking her prednisone 40 mg p.o. daily. She mentioned that prior to the pain she ate a little bit of rice and pastelon. In the ED, she was found to have stable vital signs. Blood workup was remarkable for leukocytosis, 18.3. Her hemoglobin is 11.3 (it was 9.2 about a week ago). There are no significant electrolyte imbalances. Renal function is normal. There is lactic acidosis. CRP is elevated, 1.27. Abdominal pelvis CT scan today showed distal small-bowel obstruction secondary to active inflammatory bowel disease. ED tx: Flagyl 500 mg IV, Dilaudid 1 mg total IV, Zofran 4 mg x2 and Solu-Medrol 60 mg IV. Distal small-bowel obstruction secondary to active inflammatory bowel disease admission for same last week NPO, IV solu-medrol, supportive care seen by GI, plan for medical management general surgery following - recommend medical management, no plan for surgery at this time will need to follow up with outpatient GI provider acute on chronic normocytic anemia drop in H/H likely due to dilution due to IVF Time Attestation Discharge Coordination Time (in mins): 36 Quality: Safe Use of Opioids Does Pt have an Active Cancer Diagnosis on the Problem List?: No Quality: Stroke Does the patient have a stroke diagnosis?: No Physical Exam Vital Signs: Vital Signs: Last Vital Signs Temp 98.2 F 11/10/23 07:38 Pulse 67 11/10/23 07:38 Resp 16 11/10/23 07:38 BP 101/57 L 11/10/23 07:38 Pulse Ox 98 11/10/23 07:38 O2 Del Method Room Air 11/10/23 07:38 BMI result Body Mass Index 22.3 Const: General: cooperative, comfortable, no acute distress, alert and awake Nutritional Appearance: average body habitus Orientation/consciousness: patient oriented x3 Resp: Effort & Inspection: normal respiratory effort, able to speak in complete sentences, no respiratory distress and no use of accessory muscles Auscultation: clear to auscultation bilaterally Cardio: Rate: regular rate GI: Other: soft, non-tender, non-distended, +BS Neuro: General: patient oriented x3, moves all extremities and CN's II-XI intact bilaterally Extrem: General: Yes no pedal edema Psych: Appearance: grossly normal Affect: normal affect DS: Data Data Completed and Pending Labs on day of discharge: Preliminary micro results at discharge 11/08/23 23:29 Blood Culture - Preliminary Blood - Venous No growth after 24 hours. 11/08/23 23:29 Blood Culture - Preliminary Blood - Venous No growth after 24 hours. Discharge Plan Discharge Patient Disposition: Home, Self-Care Discharge Diagnosis: sbo due to exacerbation of crohns disease Referrals: Manuel Clinton MD [Physician] - 1 Week Gwendolyn Luis MD [Primary Care Provider] - 1 Week Discharge Medications: Continued acetaminophen 325 mg Tablet 650 mg PO QID PRN (Reason: Pain) cyanocobalamin (vitamin B-12) 1,000 mcg Tablet 1,000 mcg PO DAILY Vitamin C 100 mg Tablet 100 mg PO DAILY cholecalciferol (vitamin D3) [Vitamin D3] 10 mcg (400 unit) Tablet 10 mcg PO DAILY Humira 40 mg/0.8 mL Syringe Kit 40 mg SUBCUT Q2W ondansetron 4 mg tablet,disintegrating 4 mg PO Q8H PRN (Reason: nausea and vomiting) Qty: 12 0RF multivit with min-folic acid [Multivitamin Gummies] 200 mcg Tablet,Chewable 2 tab PO DAILY prednisone 5 mg tablet See Rx Instructions .ROUTE .COMPLEX Taper: Prednisone 40 daily for 3 Days and 0 Hour 35 daily for 7 Days and 0 Hour 30 daily for 7 Days and 0 Hour 25 daily for 7 Days and 0 Hour 20 daily for 7 Days and 0 Hour 15 daily for 7 Days and 0 Hour 10 daily for 7 Days and 0 Hour 5 daily for 7 Days and 0 Hour Rx Instructions: see taper instructions: Take 8 tablets for 7 days then reduce by one tablet every 7 days until complete Activity on Discharge: As tolerated Stand Alone Forms: Patient Portal Discharge page Care Plan Goals: see below Health Concerns: Small-bowel obstruction secondary to Crohn's flare Plan of Treatment: Resume prednisone taper as previously prescribed call to schedule follow up appointment with GI - may need to consider increasing dose of humira to weekly call to schedule follow up with general surgery given recurrent admissions for SBO Assessment: see discharge summary
[2023-11-10] MEDS: Heparin Sodium,Porcine 5,000 UNIT/ML VIAL 5000 UNIT SUBCUT ×2 (16:29→21:11)
[2023-11-10] MEDS: 0.9 % Sodium Chloride Flush 3 ML SYRINGE IVFLUSH (16:35)
[2023-11-10 16:39] LABS: Hemoglobin 10.8 g/dl (12.0-16.0)
--- NOTE | 2023-11-10 17:16 | HO.PM.IMPN ---
Subjective Subjective Date of Service: 11/10/23 Interval History: seen and examined this morning follow up for sbo/crohns flare feeling better, no abdminal pain, no vomiting Review of Systems Review of Systems: Yes all other systems are reviewed and are negative Constitutional Constitutional: Denies chills and Denies fever(s) Cardiovascular Cardiovascular: Reports chest pain and Denies palpitations Gastrointestinal Gastrointestinal: Denies abdominal pain, Denies nausea and Denies vomiting Endocrine Endocrine: Denies palpitations Physical Exam Vital Signs: Vital Signs: Last Vital Signs Temp 98.2 F 11/10/23 07:38 Pulse 67 11/10/23 07:38 Resp 16 11/10/23 07:38 BP 101/57 L 11/10/23 07:38 Pulse Ox 98 11/10/23 07:38 O2 Del Method Room Air 11/10/23 07:38 BMI result Body Mass Index 22.3 Const: General: cooperative, comfortable, no acute distress, alert and awake Nutritional Appearance: average body habitus Orientation/consciousness: patient oriented x3 Resp: Effort & Inspection: normal respiratory effort, able to speak in complete sentences, no respiratory distress and no use of accessory muscles Auscultation: clear to auscultation bilaterally Cardio: Rate: regular rate GI: Other: soft, non-tender, non-distended, +BS Neuro: General: patient oriented x3, moves all extremities and CN's II-XI intact bilaterally Extrem: General: Yes no pedal edema Psych: Appearance: grossly normal Affect: normal affect Objective Data Active Medications Heparin Sodium (Porcine) (Heparin Sodium,Porcine 5,000 Unit/Ml Vial) 5,000 unit SUBCUT Q8H [facility] Last Admin: 11/10/23 16:29 Dose: 5,000 unit Documented By: MARLO Hydromorphone HCl (Hydromorphone Hcl 0.5 Mg/0.5 Ml Syringe) 0.5 mg IVPUSH Q3H PRN; Protocol PRN Reason: Pain, Severe (Pain Scale 7-10) Last Admin: 11/10/23 16:32 Dose: 0.5 mg Documented By: MARLO Methylprednisolone Sodium Succinate (Methylprednisolone Sod Succ 40 Mg/Ml Vial) 40 mg IVPUSH Q12H [facility] Ondansetron HCl (Ondansetron Hcl 4 Mg/2 Ml Vial) 4 mg IVPUSH Q6H PRN PRN Reason: Nausea and Vomiting Pantoprazole Sodium (Pantoprazole Sodium 40 Mg/10 Ml Vial) 40 mg IVPUSH DAILY@0630 [facility] Last Admin: 11/10/23 05:45 Dose: 40 mg Documented By: JUSTIN Sodium Chloride (0.9 % Sodium Chloride Flush 3 Ml Syringe) 3 ml IVFLUSH QSHIFT [facility] Last Admin: 11/10/23 16:35 Dose: 3 ml Documented By: MARLO Labs 11/10/23 16:33 11/09/23 05:41 Microbiology Microbiology Results: Microbiology 11/08/23 23:29 Blood Culture - Preliminary Blood - Venous No growth after 24 hours. 11/08/23 23:29 Blood Culture - Preliminary Blood - Venous No growth after 24 hours. Assessment and Plan (1) Exacerbation of Crohn's disease: Status: Acute (2) SBO (small bowel obstruction): Status: Acute Plan This is a 40-year-old woman with a history of Crohn's disease admitted with recurrent Crohn's flare and small-bowel obstruction. Distal small-bowel obstruction secondary to active inflammatory bowel disease admission for same last week tolerated clears, advanced to solids and pain returned, will put back on full liquids wean IV solu-medrol; should resume previous prednisone taper upon discharge seen by GI, plan for medical management general surgery following - recommend medical management, no plan for surgery at this time - will need outpatient follow up given recurrent admissions for sbo due to crohns will need to follow up with outpatient GI provider. humira level low last admission, consider increasing humira to weekly dosing per outpatient GI acute on chronic normocytic anemia drop in H/H likely due to dilution due to IVF CBC stable History of Crohn's disease on Humira, got dose last week DVT prophylaxis with heparin Full code Requires ongoing hospital stay for acute small-bowel obstruction secondary to Crohn's disease , IV antibiotics and IV steroids, this can not be done at a lesser acute setting due to risk for decompensation Quality Stroke Does the patient have a stroke diagnosis?: No VTE Prior VTE?: No VTE Risk Level:: Medical - moderate - high VTE Device Contraindication: Treatment Not Indicated VTE Drug Contraindication: N/A - Med Ordered
[2023-11-10 17:57] VITALS: BP 101/58; PULSE 69; RESP 18; TEMP 36.7; O2SAT 100
--- NOTE | 2023-11-10 17:58 | PC.NURSE ---
/Assumed care at 0700. Patient alert and oriented x 4. Afebrile. Ambulatory to bathroom. Denies any pain until this evening after starting to eat a regular diet. Tolerated clear liquids. Pain increased to 8/10, IV Dilaudid given as ordered with minimal effect. No nausea vomiting, or diarrhea noted. IVF discontinued. Receiving IV Solumedrol and Protonix. SC Heparin for DVT prophylaxis. GI and surgery following. Plan to be admitted to floor when bed available.
[2023-11-10 20:00] VITALS: BP 115/50; PULSE 78; RESP 17; TEMP 36.3; O2SAT 96
[2023-11-11 05:14] VITALS: BP 114/52; PULSE 60; RESP 15; TEMP 36.4; O2SAT 96
[2023-11-11] MEDS: HYDROmorphone HCl 0.5 MG/0.5 ML SYRINGE IVPUSH ×3 (05:21→19:41)
[2023-11-11] MEDS: Heparin Sodium,Porcine 5,000 UNIT/ML VIAL 5000 UNIT SUBCUT ×3 (05:39→21:14)
[2023-11-11] MEDS: methylPREDNISolone Sod Succ 40 MG/ML VIAL IVPUSH ×2 (05:39→17:45)
[2023-11-11] MEDS: Pantoprazole Sodium 40 MG/10 ML VIAL IVPUSH (05:41)
[2023-11-11 07:13] VITALS: BP 116/58; PULSE 52; RESP 16; TEMP 36.4; O2SAT 98
--- NOTE | 2023-11-11 09:14 | HO.PM.IMPN ---
Subjective Subjective Date of Service: 11/11/23 Interval History: seen and examined this morning follow up for sbo/crohns flare feeling better, patient was tried solid food last evening but did not tolerate and was switched back to full liquid diet. States she had a small amount of stool yesterday and is willing to try solid food Review of Systems All 12 systems were reviewed and normal except as noted in HPI. Constitutional Constitutional: Denies chills and Denies fever(s) Cardiovascular Cardiovascular: Reports chest pain, Denies palpitations, Denies dyspnea and Denies dyspnea on exertion Respiratory Respiratory: Denies cough, Denies dyspnea and Denies dyspnea on exertion Gastrointestinal Gastrointestinal: Denies abdominal pain, Reports change in bowel habits, Reports constipation, Denies nausea and Denies vomiting Musculoskeletal Musculoskeletal: Denies back pain and Denies limited range of motion Neurologic Neurologic: Denies focal weakness and Denies convulsions Psychiatric Psychiatric: Denies depression and Denies mood swings Endocrine Endocrine: Denies palpitations Physical Exam Vital Signs: Vital Signs: Last Vital Signs Temp 97.6 F 11/11/23 07:13 Pulse 52 11/11/23 07:13 Resp 16 11/11/23 07:13 BP 116/58 L 11/11/23 07:13 Pulse Ox 98 11/11/23 07:13 O2 Del Method Room Air 11/11/23 07:13 BMI result Body Mass Index 22.3 Const: General: cooperative, comfortable, no acute distress, alert and awake Nutritional Appearance: average body habitus Orientation/consciousness: patient oriented x3 Resp: Effort & Inspection: normal respiratory effort, able to speak in complete sentences, no respiratory distress and no use of accessory muscles Auscultation: clear to auscultation bilaterally Cardio: Rate: regular rate GI: Other: soft, non-tender, non-distended, +BS Neuro: General: patient oriented x3, moves all extremities and CN's II-XI intact bilaterally Extrem: General: Yes no pedal edema Psych: Appearance: grossly normal Affect: normal affect Objective Data Active Medications Heparin Sodium (Porcine) (Heparin Sodium,Porcine 5,000 Unit/Ml Vial) 5,000 unit SUBCUT Q8H [facility] Last Admin: 11/11/23 05:39 Dose: 5,000 unit Documented By: ZEN Hydromorphone HCl (Hydromorphone Hcl 0.5 Mg/0.5 Ml Syringe) 0.5 mg IVPUSH Q3H PRN; Protocol PRN Reason: Pain, Severe (Pain Scale 7-10) Last Admin: 11/11/23 05:21 Dose: 0.5 mg Documented By: ZEN Methylprednisolone Sodium Succinate (Methylprednisolone Sod Succ 40 Mg/Ml Vial) 40 mg IVPUSH Q12H [facility] Last Admin: 11/11/23 05:39 Dose: 40 mg Documented By: ZEN Ondansetron HCl (Ondansetron Hcl 4 Mg/2 Ml Vial) 4 mg IVPUSH Q6H PRN PRN Reason: Nausea and Vomiting Pantoprazole Sodium (Pantoprazole Sodium 40 Mg/10 Ml Vial) 40 mg IVPUSH DAILY@0630 [facility] Last Admin: 11/11/23 05:41 Dose: 40 mg Documented By: ZEN Sodium Chloride (0.9 % Sodium Chloride Flush 3 Ml Syringe) 3 ml IVFLUSH QSHIFT [facility] Last Admin: 11/11/23 08:39 Dose: Not Given Documented By: RENU Non-Admin Reason: IV Running Labs 11/10/23 16:33 11/09/23 05:41 Microbiology Microbiology Results: Microbiology 11/08/23 23:29 Blood Culture - Preliminary Blood - Venous No growth after 48 hours. 11/08/23 23:29 Blood Culture - Preliminary Blood - Venous No growth after 48 hours. Assessment and Plan (1) SBO (small bowel obstruction): Status: Acute Plan This is a 40-year-old woman with a history of Crohn's disease admitted with recurrent Crohn's flare and small-bowel obstruction. Distal small-bowel obstruction secondary to active inflammatory bowel disease admission for same last week Patient was advanced to solids yesterday but could not tolerate and was placed back to full liquids. Patient is feeling better and will try mechanical diet later today wean IV solu-medrol; should resume previous prednisone taper upon discharge seen by GI, plan for medical management general surgery following - recommend medical management, no plan for surgery at this time - will need outpatient follow up given recurrent admissions for sbo due to crohns will need to follow up with outpatient GI provider. humira level low last admission, consider increasing humira to weekly dosing per outpatient GI acute on chronic normocytic anemia drop in H/H likely due to dilution due to IVF CBC stable History of Crohn's disease on Humira, got dose last week DVT prophylaxis with heparin Full code Requires ongoing hospital stay for acute small-bowel obstruction secondary to Crohn's disease and management with IV steroids, this can not be done at a lesser acute setting due to risk for decompensation. Awaiting remission Quality Stroke Does the patient have a stroke diagnosis?: No VTE Prior VTE?: No VTE Risk Level:: Medical - moderate - high VTE Device Contraindication: Treatment Not Indicated VTE Drug Contraindication: N/A - Med Ordered
--- NOTE | 2023-11-11 10:06 | P.PNGS_ITS ---
Subjective Subjective Date of Service: 11/11/23 Interval history: Feels much better this morning Has BMs and flatus Abdominal pain minimal Tolerating clear liquids Physical Exam 2 Vital Signs: Vital Signs: Last Vital Signs Temp 97.6 F 11/11/23 07:13 Pulse 52 11/11/23 07:13 Resp 16 11/11/23 07:13 BP 116/58 L 11/11/23 07:13 Pulse Ox 98 11/11/23 07:13 O2 Del Method Room Air 11/11/23 07:13 BMI result Body Mass Index 22.3 Const: General: comfortable and no acute distress Resp: Effort & Inspection: normal respiratory effort Cardio: Rate: regular rate GI: Palpation (GI): Soft to palpation, not firm, nontender and no guarding Objective Data Active Medications Heparin Sodium (Porcine) (Heparin Sodium,Porcine 5,000 Unit/Ml Vial) 5,000 unit SUBCUT Q8H [facility] Last Admin: 11/11/23 05:39 Dose: 5,000 unit Documented By: ZEN Hydromorphone HCl (Hydromorphone Hcl 0.5 Mg/0.5 Ml Syringe) 0.5 mg IVPUSH Q3H PRN; Protocol PRN Reason: Pain, Severe (Pain Scale 7-10) Last Admin: 11/11/23 05:21 Dose: 0.5 mg Documented By: ZEN Methylprednisolone Sodium Succinate (Methylprednisolone Sod Succ 40 Mg/Ml Vial) 40 mg IVPUSH Q12H [facility] Last Admin: 11/11/23 05:39 Dose: 40 mg Documented By: ZEN Ondansetron HCl (Ondansetron Hcl 4 Mg/2 Ml Vial) 4 mg IVPUSH Q6H PRN PRN Reason: Nausea and Vomiting Pantoprazole Sodium (Pantoprazole Sodium 40 Mg/10 Ml Vial) 40 mg IVPUSH DAILY@0630 [facility] Last Admin: 11/11/23 05:41 Dose: 40 mg Documented By: ZEN Sodium Chloride (0.9 % Sodium Chloride Flush 3 Ml Syringe) 3 ml IVFLUSH QSHIFT [facility] Last Admin: 11/11/23 08:39 Dose: Not Given Documented By: RENU Non-Admin Reason: IV Running Labs 11/10/23 16:33 11/09/23 05:41 Microbiology Microbiology Results: Microbiology 11/08/23 23:29 Blood Culture - Preliminary Blood - Venous No growth after 48 hours. 11/08/23 23:29 Blood Culture - Preliminary Blood - Venous No growth after 48 hours. Procedures Date of Service Date of Service: 11/11/23 Progress Note: A&P Assessment and plan (1) SBO (small bowel obstruction): Status: Acute Assessment and Plan: Symptoms resolved Abdomen soft and benign On clear liquids, okay to slowly advance as tolerated She sees GI in [facility] - on Humira treatment but says that she may need to have this adjusted Currently on steroids as well Doing well Time Spent With Patient Time: Total time managing care of this patient today ____ minutes. Quality Stroke Does the patient have a stroke diagnosis?: No VTE Prior VTE?: No VTE Risk Level:: Medical - moderate - high VTE Device Contraindication: Treatment Not Indicated VTE Drug Contraindication: N/A - Med Ordered
[2023-11-11] MEDS: 0.9 % Sodium Chloride Flush 3 ML SYRINGE IVFLUSH ×2 (14:51→19:42)
[2023-11-11 15:48] VITALS: BP 114/58; PULSE 60; RESP 20; TEMP 36.6; O2SAT 100
[2023-11-11 19:33] VITALS: BP 101/59; PULSE 56; RESP 16; TEMP 36.4; O2SAT 97
[2023-11-11] MEDS: ondansetron HCL 4 MG/2 ML VIAL IVPUSH (19:42)
[2023-11-12 03:26] VITALS: BP 93/50; PULSE 58; RESP 18; TEMP 36.3; O2SAT 96
[2023-11-12] MEDS: Heparin Sodium,Porcine 5,000 UNIT/ML VIAL 5000 UNIT SUBCUT (06:01)
[2023-11-12] MEDS: HYDROmorphone HCl 0.5 MG/0.5 ML SYRINGE IVPUSH (06:06)
[2023-11-12] MEDS: Pantoprazole Sodium 40 MG/10 ML VIAL IVPUSH (06:07)
[2023-11-12] MEDS: methylPREDNISolone Sod Succ 40 MG/ML VIAL IVPUSH (06:07)
[2023-11-12 06:25] LABS: Hematocrit 28.8 % (37.0-47.0); Hemoglobin 9.6 g/dl (12.0-16.0); Mean Corpuscular HGB Conc 33.3 g/dl (31.0-35.0); Mean Corpuscular Hemoglobin 31.1 pg (27.0-33.0); Mean Corpuscular Volume 93.2 fL (80.0-98.0); Mean Platelet Volume 9.6 fL (9.4-12.3); Platelet Count 280 X10*3/uL (160-400); Red Blood Count 3.09 X10*6/uL (4.20-5.50); Red Cell Distribution Width 15.6 % (11.0-16.0); White Blood Count 9.2 X10*3/uL (4.8-10.8)
[2023-11-12 07:48] VITALS: BP 134/74; PULSE 55; RESP 18; TEMP 36.3; O2SAT 99
[2023-11-12] MEDS: 0.9 % Sodium Chloride Flush 3 ML SYRINGE IVFLUSH (09:12)
--- NOTE | 2023-11-12 09:51 | P.PNGS_ITS ---
Subjective Subjective Date of Service: 11/12/23 Interval history: denies pain tolerating diet with flatus and BMs Physical Exam 2 Vital Signs: Vital Signs: Last Vital Signs Temp 97.4 F 11/12/23 07:48 Pulse 55 11/12/23 07:48 Resp 18 11/12/23 07:48 BP 134/74 11/12/23 07:48 Pulse Ox 99 11/12/23 07:48 O2 Del Method Room Air 11/12/23 07:48 BMI result Body Mass Index 22.3 Const: General: comfortable and no acute distress Resp: Effort & Inspection: normal respiratory effort Cardio: Rate: regular rate GI: Palpation (GI): Soft to palpation, not firm, nontender and no guarding Objective Data Active Medications Heparin Sodium (Porcine) (Heparin Sodium,Porcine 5,000 Unit/Ml Vial) 5,000 unit SUBCUT Q8H [facility] Last Admin: 11/12/23 06:01 Dose: 5,000 unit Documented By: BRUCE Hydromorphone HCl (Hydromorphone Hcl 0.5 Mg/0.5 Ml Syringe) 0.5 mg IVPUSH Q3H PRN; Protocol PRN Reason: Pain, Severe (Pain Scale 7-10) Last Admin: 11/12/23 06:06 Dose: 0.5 mg Documented By: BRUCE Methylprednisolone Sodium Succinate (Methylprednisolone Sod Succ 40 Mg/Ml Vial) 40 mg IVPUSH Q12H [facility] Last Admin: 11/12/23 06:07 Dose: 40 mg Documented By: BRUCE Ondansetron HCl (Ondansetron Hcl 4 Mg/2 Ml Vial) 4 mg IVPUSH Q6H PRN PRN Reason: Nausea and Vomiting Last Admin: 11/11/23 19:42 Dose: 4 mg Documented By: BRUCE Sodium Chloride (0.9 % Sodium Chloride Flush 3 Ml Syringe) 3 ml IVFLUSH QSHIFT [facility] Last Admin: 11/12/23 09:12 Dose: 3 ml Documented By: RENU Labs 11/12/23 05:49 11/09/23 05:41 Labs: Laboratory Results - last 24 hr 11/12/23 05:49 MCV 93.2 MCH 31.1 MCHC 33.3 RDW 15.6 Plt Count 280 MPV 9.6 Absolute Nucleated RBC 0.000 Nucleated RBC % (auto) 0.0 Procedures Date of Service Date of Service: 11/12/23 Progress Note: A&P Assessment and plan (1) Exacerbation of Crohn's disease: Status: Acute Assessment and Plan: symptoms resolved feels well tolerating diet ok to dc home instructed to ffup with her GI Time Spent With Patient Time: Total time managing care of this patient today ____ minutes. Quality Stroke Does the patient have a stroke diagnosis?: No VTE Prior VTE?: No VTE Risk Level:: Medical - moderate - high VTE Device Contraindication: Treatment Not Indicated VTE Drug Contraindication: N/A - Med Ordered
--- NOTE | 2023-11-12 10:41 | P.DS_ITS ---
DS: Providers Provider Date of Service: 11/12/23 Date of admission: 11/08/23 23:14 Date of discharge: 11/12/23 Primary care physician: Gwendolyn Luis MD Consults: 11/08/23 23:17 Consult to Gastroenterology Routine Consulting Provider: Christophe Winters Reason for consultation: Hx of Crohn's disease, recurrent SBO Has provider been notified: No 11/08/23 23:18 Consult to General Surgery Routine Consulting Provider: [facility] Surgeons Reason for consultation: Hx of Crohn;s disease, recurrent SBO Has provider been notified: No DS: Diagnosis Discharge Diagnosis (1) Exacerbation of Crohn's disease: Status: Acute DS: Summary Hospital Course Hospital Course: From H&P on the day of admission Nuvia Earl is a 48 years old woman with past medical history significant for Crohn's disease on prednisone and Humira presents to the emergency department complaining of severe generalized abdominal pain that started today. She also report nausea and nonbloody vomiting. She denied episodes of diarrhea. Her last bowel movement was Monday. She did not report fevers or chills. She also denies headache, palpitations, dizziness, chest pain or shortness on breath. No acute urinary symptoms reported. She denied tobacco smoking, alcohol abuse or illicit drug use. Patient denies history of abdominal surgeries. Chart review: Patient was recently discharged from the hospital due to SBO secondary to active inflammatory bowel disease. At that time she received treatment with IV Solu-Medrol and evaluated by GI and surgery. No surgical interventions done. Her symptoms improved and she was sent home to take a course of prednisone. Patient has been taking her prednisone 40 mg p.o. daily. She mentioned that prior to the pain she ate a little bit of rice and pastelon. In the ED, she was found to have stable vital signs. Blood workup was remarkable for leukocytosis, 18.3. Her hemoglobin is 11.3 (it was 9.2 about a week ago). There are no significant electrolyte imbalances. Renal function is normal. There is lactic acidosis. CRP is elevated, 1.27. Abdominal pelvis CT scan today showed distal small-bowel obstruction secondary to active inflammatory bowel disease. ED tx: Flagyl 500 mg IV, Dilaudid 1 mg total IV, Zofran 4 mg x2 and Solu-Medrol 60 mg IV. Hospital course: Patient was initiated on IV Solu-Medrol. Was evaluated by inpatient gastroenterology and General surgery. No surgical intervention recommended, patient was managed conservatively with supportive care. Diet was slowly advanced throughout hospitalization and patient was tolerating solid food well prior to discharge. Patient to continue steroid taper after discharge. Recommend follow-up with Gastroenterology outpatient within 1 week for inc reasing doses of Humira Humira Status at Discharge Functional status at discharge: independent ambulation Overall status at discharge: patient is back to baseline Time Attestation Discharge Coordination Time (in mins): 31 minutes Quality: Safe Use of Opioids Does Pt have an Active Cancer Diagnosis on the Problem List?: No Quality: Stroke Does the patient have a stroke diagnosis?: No Physical Exam Vital Signs: Vital Signs: Last Vital Signs Temp 97.4 F 11/12/23 07:48 Pulse 55 11/12/23 07:48 Resp 18 11/12/23 07:48 BP 134/74 11/12/23 07:48 Pulse Ox 99 11/12/23 07:48 O2 Del Method Room Air 11/12/23 07:48 BMI result Body Mass Index 22.3 Middle-aged female lying in bed in no distress Neck supple, no JVD Regular rate and rhythm, S1-S2 heard Regular breath sounds bilaterally, no wheezing or crackles appreciated Abdomen soft nontender, no guarding, no rigidity Patient is awake, alert and oriented to self, place, time and person ; no focal motor deficit Psych: Normal mood No pedal edema DS: Data Data Completed and Pending Labs on day of discharge: Laboratory Results - last 24 hr 11/12/23 05:49 WBC 9.2 RBC 3.09 L Hgb 9.6 L Hct 28.8 L MCV 93.2 MCH 31.1 MCHC 33.3 RDW 15.6 Plt Count 280 MPV 9.6 Absolute Nucleated RBC 0.000 Nucleated RBC % (auto) 0.0 Preliminary micro results at discharge 11/08/23 23:29 Blood Culture - Preliminary Blood - Venous No growth after 48 hours. 11/08/23 23:29 Blood Culture - Preliminary Blood - Venous No growth after 48 hours. Imaging Chest x-ray: Radiologist's impression: ITS Impressions Abdomen/Pelvis CT 11/08/23 22:02 IMPRESSION: Distal small bowel obstruction secondary to active inflammatory bowel disease similar location to October 2023 exam. Small bowel dilatation appears increased compared to October exam. Second area of abnormal small bowel with wall thickening and mild stricture in the right lower quadrant. Increasing small amount of ascites. Gallstones. Fleischner guidelines were followed. Discharge Plan Discharge Anticipated Discharge Date/Time: 11/10/23 17:15 Patient Disposition: Home, Self-Care Discharge Diagnosis: sbo due to exacerbation of crohns disease Referrals: Manuel Clinton MD [Physician] - 1 Week Gwendolyn Luis MD [Primary Care Provider] - 1 Week Discharge Medications: Continued acetaminophen 325 mg Tablet 650 mg PO QID PRN (Reason: Pain) cyanocobalamin (vitamin B-12) 1,000 mcg Tablet 1,000 mcg PO DAILY Vitamin C 100 mg Tablet 100 mg PO DAILY cholecalciferol (vitamin D3) [Vitamin D3] 10 mcg (400 unit) Tablet 10 mcg PO DAILY Humira 40 mg/0.8 mL Syringe Kit 40 mg SUBCUT Q2W ondansetron 4 mg tablet,disintegrating 4 mg PO Q8H PRN (Reason: nausea and vomiting) Qty: 12 0RF multivit with min-folic acid [Multivitamin Gummies] 200 mcg Tablet,Chewable 2 tab PO DAILY prednisone 5 mg tablet See Rx Instructions .ROUTE .COMPLEX Taper: Prednisone 40 daily for 3 Days and 0 Hour 35 daily for 7 Days and 0 Hour 30 daily for 7 Days and 0 Hour 25 daily for 7 Days and 0 Hour 20 daily for 7 Days and 0 Hour 15 daily for 7 Days and 0 Hour 10 daily for 7 Days and 0 Hour 5 daily for 7 Days and 0 Hour Rx Instructions: see taper instructions: Take 8 tablets for 7 days then reduce by one tablet every 7 days until complete Discharge Orders: Discharge Order (Routine); Ordered 11/12/23 Ordered By: Suzie Lowery Diet: Advance to usual diet Activity on Discharge: As tolerated Stand Alone Forms: Patient Portal Discharge page Care Plan Goals: see below Health Concerns: Small-bowel obstruction secondary to Crohn's flare Plan of Treatment: Resume prednisone taper as previously prescribed call to schedule follow up appointment with GI - may need to consider increasing dose of humira to weekly call to schedule follow up with general surgery given recurrent admissions for SBO Assessment: see discharge summary
--- NOTE | 2023-11-12 11:13 | MHC.CM.PN ---
PT WILL DC HOME TODAY WITH NO SERVICES VIA PRIVATE TRANSPORT
[2023-11-13 09:23] LABS: CRP High Sensitivity 8.1 mg/L
== END 2023-11-12 12:31 | disposition home or self-care (01) | DRG 245 ==
LOC: HO.ED 22:53 → HO.EDOVER 23:19 → HO.S3 11-11 04:17
PROVIDERS: Nurse Practitioner Family; Physician Assistant Medical; Admitting Provider Internal Medicine; Emergency Provider Emergency Medicine; PCP Internal Medicine; Visit Provider Student in an Organized Health Care Education/Training Program
DX: K50.012 Crohn's disease of small intestine with intestinal obstruction (principal); D64.9 Anemia, unspecified; Z79.52 Long term (current) use of systemic steroids; Z87.891 Personal history of nicotine dependence; Z79.620 Long term (current) use of immunosuppressive biologic; Z79.899 Other long term (current) drug therapy
CPT/HCPCS: 36415; 74177; 80053; 81001; 83605; 83735; 85014; 85018; 85025; 85027; 86140; 86141; 87040; 99285; C9113; J1170; J1644; J1836; J2405; J2920; J2930; J3360; J7120; Q9967

== ENCOUNTER → 2023-11-08 23:14 | Outpatient (BNV) | payer OTHER, SELFPAY | PROVIDERS: Admitting Provider Internal Medicine; Emergency Provider Emergency Medicine; PCP Internal Medicine; Visit Provider Surgery | DX: K50.912 Crohn's disease, unspecified, with intestinal obstruction (principal) | CPT/HCPCS: 99222; 99232 ==

== ENCOUNTER → 2023-11-08 23:14 | Outpatient (BNV) | payer OTHER, SELFPAY | PROVIDERS: Admitting Provider Internal Medicine; Emergency Provider Emergency Medicine; PCP Internal Medicine; Visit Provider Internal Medicine | DX: K50.912 Crohn's disease, unspecified, with intestinal obstruction (principal) | CPT/HCPCS: 99223; 99232; 99233; 99239 ==

== ENCOUNTER 2023-11-16 14:30 | Outpatient (AMB) | payer OTHER, SELFPAY ==
--- NOTE | 2023-11-16 14:34 | A.OFFVIS_ITS ---
Intake Vital Signs 11/16/23 14:44 Height 5 ft 2 in Weight 126 lb BMI 23.0 BP 105/62 Blood Pressure Location Rt brachial Position Sitting Pulse 96 Intake Visit Reasons: Small Bowel Obstruction Intake Note: Patient referred by recent ER visit on 11-08-23. Patient c/o: constant abd pain. On prednisone, Humira. Hx of Crohn's disease. Abd/pelvis CT: 11-08-23 Fruit Raiser Required: No Accompanied by: daughter Meghna Allergies No Known Allergies [No Known Allergies*] Allergy (Verified 11/16/23 14:41) HPI Small Bowel Obstruction HPI Details 48-year-old female here for follow-up fo r small bowel obstruction. She has a long history of Crohn's disease. She had been admitted to the hospital last week as well as earlier this month because of partial small-bowel obstruction with note of inflammatory changes in the distal ileum consistent with her Crohn's disease. She is actually being seen and followed by her senior agricultural assistant in [place]. She had been started on Humira but her levels seemed to be low when she was admitted the hospital last week She has had multiple admissions for partial small-bowel obstruction with her Crohn's disease here at [facility]. She says she talked to her senior agricultural assistant Jamal Flowers in [place] and she was told to see me for surgical resection She says she feels that she her Crohn's disease has been affecting her more specially with her lifestyle. She feels that this is not well controlled at all anymore. [facility] Medical History Crohn disease Crohn's disease Depression Social History Household Members: Family Household Members Other:: grandmother Housing: House Do you presently have visiting nurse or other home services: No Alcohol intake: former Comment: pt refuses alarms Patient Tobacco Use Status: Former Tobacco user Quit Date: 3 days ago Tobacco use type: Cigarette Cigarette Packs Per Day: 0.5 Cigarettes Per Day: 2 Years Smoked: 34 e-Cigarette/Vaping Use: Currently Using Second Hand Smoke Exposure: No Advance Directives Date on File: 07/04/23 service: No Review of Systems Const Denies chills and Denies fever(s) Card Denies chest pain, Denies dyspnea and Denies dyspnea on exertion Resp Denies cough, Denies dyspnea and Denies dyspnea on exertion GI Denies hematochezia and Denies change in bowel habits Denies hematuria Musc Denies back pain and Denies limited range of motion Neuro Denies focal weakness and Denies convulsions Psych Reports depression and Denies mood swings Physical Exam Vital Signs: Last Vital Signs Pulse 96 11/16/23 14:44 BP 105/62 11/16/23 14:44 BMI result Body Mass Index 23.0 Const General: no acute distress Resp Effort & Inspection: normal respiratory effort Cardio Rate: regular rate GI Other: Some tenderness diffusely, hyperactive bowel sounds, no guarding rebound Palpation (GI): Soft to palpation Assessment & Plan Assessment & Plan (1) Exacerbation of Crohn's disease: Code(s): K50.90 - Crohn's disease, unspecified, without complications Qualifiers: Digestive disease complication type: with intestinal obstruction Qualified Code(s): K50.912 - Crohn's disease, unspecified, with intestinal obstruction Plan: She has had a long history of Crohn's disease of the small bowel. Her CAT scan some recent admissions show thickening in a long segment of the ileum sparing the terminal ileum. Her Humira levels were low on her last admission. The senior agricultural assistant in [place] felt that this may be increased to optimize her medical management. She says that she wants to seek opinion from Jack. I will see if we can set her up for a consultation with the [facility] in [facility]. She is comfortable with the plan. In the meantime, she says she is scheduled to have her Humira treatment tomorrow. Coding Level of Care Code Est Pt Level 3 (96356) Diagnoses Exacerbation of Crohn's disease with intestinal obstruction K50.912 Digestive disease complication type: with intestinal obstruction
[2023-11-16 14:44] VITALS: BP 105/62; PULSE 96; BMI 23.0
== END 2023-11-16 14:58 | disposition home or self-care (01) ==
PROVIDERS: PCP Internal Medicine; Visit Provider Surgery
DX: K50.912 Crohn's disease, unspecified, with intestinal obstruction (principal)
CPT/HCPCS: 99213

== ENCOUNTER → 2023-11-16 14:30 | Outpatient (BNVA) | payer OTHER, SELFPAY | PROVIDERS: PCP Internal Medicine; Visit Provider Surgery | DX: K50.912 Crohn's disease, unspecified, with intestinal obstruction (principal) | CPT/HCPCS: 99212 ==

== ENCOUNTER 2023-11-18 09:32 | Inpatient (IN) | payer OTHER, SELFPAY ==
[2023-11-18] VITALS (7 sets, daily range): BP systolic 86–109; BP diastolic 39–64; PULSE 69–101; RESP 16–19; TEMP 36.3–37; O2SAT 94–100; BMI 21.2
--- NOTE | ~2023-11-18 | XR_ITS ---
EXAMINATION: XR ABDOMEN COMPLETE CLINICAL INDICATION: Crohn's disease with small bowel obstruction. COMPARISON: CT abdomen pelvis 11/18/2023. TECHNIQUE: 2 views of the abdomen. FINDINGS: The dilated small bowel loops seen on the 11/18/2023 CT scan have significantly improved. When comparing the current KUB with that exam, this is most apparent on the nonprofit director radiograph which showed multiple dilated loops of small bowel. At this point in time, no significant small bowel obstruction is seen. There is one minimally prominent small bowel loop, not even dilated in the right midabdomen. No free air. The gallstones seen on the CT scan are hinted at on the upright radiograph. XR/XR acute abdomen series IMPRESSION: Significant improvement in small bowel obstruction.
--- NOTE | ~2023-11-18 | CT_ITS ---
EXAMINATION: CT ABDOMEN AND PELVIS WITH CONTRAST CLINICAL INFORMATION: Diffuse abdominal pain. History of Crohn's disease. COMPARISON: CT scan of the abdomen and pelvis dated 11/08/2023 and several older exams. TECHNIQUE: Multidetector CT volumetric acquisition of the abdomen and pelvis was performed after the administration of 85 mL of intravenous Omnipaque 350. The data set was reformatted in the sagittal and coronal planes and reviewed on an independent workstation. This CT examination was performed using dose optimization techniques as appropriate, variously including the following: *Automated exposure control *Adjustment of mA and/or kV according to patient size (this includes techniques or standardized protocols for targeted exams where dose is matched to indication/reason for exam; i.e. extremities or head) *Use of iterative reconstruction technique DLP: 363 mGy-cm. FINDINGS: LOWER CHEST: Minimal dependent atelectasis in the left lung base. LIVER, GALLBLADDER, BILIARY TREE: Liver normal size and attenuation. No focal cystic or solid mass or intra-or extrahepatic ductal dilatation. Hepatic and portal veins patent. Gallbladder mammogram distended. As noted previously, there are a few layering calcified small gallstone seen within the gallbladder. No gallbladder wall thickening or pericholecystic edema is noted. PANCREAS: Normal. No ductal dilatation, mass, or surrounding stranding. SPLEEN: Normal size and appearance. Splenic vein patent. ADRENAL GLANDS AND KIDNEYS: Adrenal glands normal. Kidneys bilaterally symmetric in size and function. No focal mass, hydronephrosis, nephrolithiasis or perinephric stranding. URETERS AND BLADDER: Ureters decompressed and within normal limits. Bladder partially distended and within normal limits. PELVIC ORGANS: Unremarkable. GASTROINTESTINAL TRACT: There is persistent high-grade partial small bowel obstruction with abnormally dilated and fluid-filled loops of small bowel again seen with multiple air-fluid levels and mild wall thickening. In the mid abdomen, the small bowel loops measure up to 5.7 cm in diameter. In the pelvis, just prior to the long segment stricture of the distal and terminal ileum, the bowel loop measures up to 7.4 cm as compared to 6.7 cm previously. There is associated small volume free fluid in the right lower quadrant and pelvis. There is circumferential wall thickening and mucosal hyperenhancement of the strictured segment of the distal ileum and small bowel. There is surrounding mesenteric fat stranding and edema. Scribed second segment of circumferential bowel wall thickening involving the mid small bowel loop now appears less distended but continues to demonstrate abnormal circumferential bowel wall thickening (coronal series 6, image 33). There is no evidence of pneumatosis intestinalis or evidence of bowel perforation. No mesenteric venous gas is noted. The colon is decompressed and appears grossly unremarkable. Appendix is normal. LYMPHOVASCULAR STRUCTURES: Abdominal aorta normal in caliber. No periaortic collections. No abdominal or pelvic adenopathy. BONES: There is moderate degenerative disc disease at the lumbosacral junction. CT/CT abdomen pelvis w IV con IMPRESSION: * Persistent high-grade partial small bowel obstruction with long segment strictured an acutely inflamed segment of the distal ileum and terminal ileum. There is associated mesenteric fat stranding and edema and small volume free fluid in the right lower quadrant and pelvis. No evidence of bowel perforation or abscess formation is seen. * The second strictured segment of the mid small bowel loop previously described appears less distended but continues to demonstrate abnormal circumferential bowel wall thickening and mucosal hyperenhancement and is suspicious for a skip area of active Crohn's disease. * Cholelithiasis with no evidence of acute cholecystitis.
[2023-11-18 10:40] LABS: Hematocrit 40.9 % (37.0-47.0); Hemoglobin 13.8 g/dl (12.0-16.0); Mean Corpuscular HGB Conc 33.7 g/dl (31.0-35.0); Mean Corpuscular Hemoglobin 30.1 pg (27.0-33.0); Mean Corpuscular Volume 89.3 fL (80.0-98.0); Mean Platelet Volume 9.6 fL (9.4-12.3); Platelet Count 431 X10*3/uL (160-400); Red Blood Count 4.58 X10*6/uL (4.20-5.50); Red Cell Distribution Width 15.4 % (11.0-16.0); White Blood Count 19.7 X10*3/uL (4.8-10.8)
[2023-11-18] MEDS: ondansetron HCL 4 MG/2 ML VIAL IVPUSH ×2 (10:41→21:38)
[2023-11-18] MEDS: Ketorolac Tromethamine 30 MG/ML VIAL IVPUSH (10:42)
[2023-11-18] MEDS: HYDROmorphone HCl 0.5 MG/0.5 ML SYRINGE IVPUSH ×2 (10:43→15:04)
[2023-11-18] MEDS: diphenhydrAMINE HCL 50 MG/ML VIAL IVPUSH (10:43)
[2023-11-18] MEDS: 0.9 % Sodium Chloride 1,000 ML 999 ML IVCONT ×3 (10:44→14:29)
[2023-11-18 11:00] LABS: HCG Quantitative 3 mIU/mL
[2023-11-18 11:07] LABS: SLIDE REVIEW MANUAL DIFF
--- NOTE | 2023-11-18 11:12 | ED.ABDPAIN ---
HPI - Abdominal Pain General Chief Complaint: Nausea/Vomiting/Diarrhea Stated Complaint: VOMITING ABD PAIN Time Seen by Provider: 11/18/23 09:47 Source: patient Mode of arrival: ambulatory Limitations: no limitations History of Present Illness HPI narrative: 48-year-old female with a past medical history of Crohn's disease presenting to the ER with complaints of diffuse abdominal pain that started this morning. She reports that she had nausea vomiting for the past week. She reports she is currently on Humira and prednisone for her Crohn's disease. When I reviewed the patient's chart it appears that she has been seen here for small-bowel obstructions/partial small-bowel obstruction and she has not had surgery from this. Apparently she would like a 2nd opinion this is from Dr. Clinton's chart on 11/16/2023 She denies any fevers, chest pain or shortness of breath, recent falls or trauma, black or bloody emesis, diarrhea constipation, black or bloody stools, recent travel or sick contacts that she is aware of or any other symptoms complaints or concerns at this time MD elicited complaint: abdominal pain Pertinent past history: other (History of Crohn's is) Onset (ago): week(s) (1) Pain Consistency: constant Location: diffuse Severity: severe Quality: aching Radiation: none Migration to: no migration Exacerbating factors: nothing Relieving factors: nothing Associated symptoms: nausea and vomiting Related Data Home Medications Medication Instructions Recorded Confirmed multivitamin with minerals-folic 2 tab PO DAILY 05/26/23 11/08/23 acid 200 mcg chewable tablet (Multivitamin Gummies) acetaminophen 325 mg tablet 650 mg PO QID PRN Pain 11/01/23 11/08/23 adalimumab 40 mg/0.8 mL 40 mg subcut Q2W 11/01/23 11/08/23 subcutaneous syringe kit (Humira) ascorbic acid (vitamin C) 100 mg 100 mg PO DAILY 11/01/23 11/08/23 tablet (Vitamin C) cholecalciferol (vitamin D3) 10 10 mcg PO DAILY 11/01/23 11/08/23 mcg (400 unit) tablet (Vitamin D3) cyanocobalamin (vitamin B-12) 1,000 mcg PO DAILY 11/01/23 11/08/23 1,000 mcg tablet prednisone 5 mg tablet See Rx Instructions .ROUTE .COMPLEX 11/08/23 11/08/23 Previous Rx's Medication Instructions Recorded ondansetron 4 mg disintegrating 4 mg PO Q8H PRN nausea and 11/04/23 tablet vomiting #12 tabs Allergies Allergy/AdvReac Type Severity Reaction Status Date / Time No Known Allergies Allergy Verified 11/16/23 14:41 [No Known Allergies*] Review of Systems Review of Systems Constitutional : No Fever, No Chills, No Night Sweats, No Fatigue, No Malaise Cardiovascular : No Chest Pain, No SOB Respiratory : No Cough, No Sputum, No Wheezing, No Dyspnea Gastrointestinal : + Nausea, + Vomiting, No Diarrhea, + abdominal Pain, No Hematochezia, No Melena Genitourinary : No irregular bleeding, No Dysuria, No Urinary Frequency, No Hematuria,No Urinary Incontinence, No Urgency, No Flank Pain Musculoskeletal : No joint pain, No Myalgias, No Joint Swelling Skin : No Skin Lesions, No rash Neuro : No Weakness, No Numbness, No Paresthesias, No Loss of Consciousness, No Dizziness, No Headache Heme/Lymph: No Lymphadenopathy Endocrine : No Temperature Intolerance Yes all other systems are reviewed and are negative [facility] Past Medical History Attestation statement: The following information was validated with the patient. Source: old records reviewed Medical History Crohn disease Crohn's disease Depression Social History Social History Household Members: Unknown / Unable to assess Household Members Other:: grandmother Housing: House Do you presently have visiting nurse or other home services: No Alcohol intake: former Comment: pt refuses alarms Patient Tobacco Use Status: Former Tobacco user Quit Date: 3 days ago Tobacco use type: Cigarette Cigarette Packs Per Day: 0.5 Cigarettes Per Day: 2 Years Smoked: 34 Smoked in Last 30 Days: No e-Cigarette/Vaping Use: Currently Using Second Hand Smoke Exposure: No Use of substances other than those prescribed or required for medical reasons: No Advance Directives: No Advance Directives Information Provided: No Patient : No service: No Physical Exam ED Vital Signs: Vital Signs - 24 hr 11/18/23 10:07 11/18/23 11:20 11/18/23 13:47 Temperature 98.3 F 98.6 F 98.3 F Pulse Rate 101 H 69 74 Respiratory Rate 19 18 18 Blood Pressure 97/57 L 94/48 L 86/40 L Pulse Oximetry 99 98 98 Oxygen Delivery Method Room Air Room Air Room Air BMI result Body Mass Index 21.2 vital signs have been reviewed as normal and appeared to be correct. Blood pressure hypotensive at 97/57. Heart rate normal. Respiration rate normal. Temperature normal. Oxygen saturation normal. Appearance: Alert. Oriented X3. Patient is screaming in pain rolling around in the bed requesting for Dilaudid otherwise no other acute distress Head: Normal external exam. Normocephalic. Atraumatic. Eyes: PERRLA. EOMI. Conjunctiva and sclera normal. Eyelids normal. ENT: EAC normal. TM's Normal. Pharynx normal. Uvula midline. Moist mucous membranes. No lesions/ulcerations or masses noted on the tongue. Normal voice. No trismus noted. No drooling noted. No muffled voice noted. Neck: Normal inspection. Neck supple. FROM. No adenopathy. No meningeal signs. CVS: Normal heart rate and rhythm. Heart sound normal. Pulses normal throughout. No murmurs/rales/gallops. Respiratory: No respiratory distress. Painless inspiration. Breath sounds normal. No wheezes/rales/rhonchi noted. No accessory muscle usage noted or decreased air movement noted. No signs of trauma. Abdomen: Soft and moderate tenderness diffusely with guarding no point tenderness is noted. Bowel sounds normal in all 4 quadrants. No distention noted. No organomegaly noted. No visible injury noted. Back: No CVA tenderness. Full range of motion noted. Nontender. Skin: Skin warm and dry. Normal skin color. Normal skin turgor. No rashes/lesions/lacerations noted. Extremities: No lower extremity edema. No calf tenderness is noted. Extremities exhibit normal range of motion and nontender. Neuro: Oriented X 3. No motor deficit. No sensory deficit. Reflexes normal. Normal steady gait. No focal neuro deficits noted. CN's II-XII intact bilaterally? Vascular: + radial pulses/+ 2 distal pedal pulses/+2 dorsalis pedis b/l. Normal cap refill. No cyanosis noted to upper extremity nails and lower extremity toes nails. Course Course Course Narrative: Patient presenting with generalized abdominal pain most likely related to her Crohn's disease flare vs SBO. Abdominal exam without peritoneal signs. No evidence of acute abdomen at this time. Well-appearing.Low suspicion for acute hepatobiliary disease (includng acute cholecystitis), acute pancreatitis, PUD (including perforation), acute infectious processes (pneumonia, hepatitis, pyelonephritis), acute appendicitis, vascular catastrophe, or viscus perforation. Presentation not consistent with other acute, emergent causes of abdominal pain at this time. Plan: Labs, UA, CT scan abdomen pelvis with IV contrast. Provide a L of IV fluids, 4 mg of Zofran, 0.5 mg of Dilaudid, 30 mg of IV Toradol and 50 mg of Benadryl and re-evaluate. Reevaluation(s) Reevaluation #1: Patient with leukocytosis of 19,000, platelet count 431 this is new for the patient. BUN is 23. Glucose 116. Magnesium 1.5. CRP 1.45. Total protein 6.0. Lipase 6. Patient negative for . Patient negative for COVID/RSV/flu. Otherwise all other labs are within normal limits. Therefore blood cultures and lactic acid were ordered due to leukocytosis. No source of infection therefore no antibiotics indicated at this time. CT scan of abdomen pelvis with IV contrast returned revealed Crohn's flare with possible partial small-bowel obstruction/small-bowel obstruction. Dr. Walters pain evaluated the patient he reviewed the patient's chart and he reported that the patient usually does not have surgery and she is usually admitted to the hospitalist/medicine with GI to consult and surgery will also consult. Therefore I discussed this case with DEVEN Mccann who reported that the patient's blood pressure still soft in the 80s and they can not take her to the floor at this time with her systolic blood pressure in the 80s it is at 86 at this time. Therefore another L of IV fluids were ordered. Patient reports her pain has improved. Will continue to monitor until patient is admitted. Time: 14:05 Reevaluation #2: Blood pressure has improved with IV fluids running. Patient will be admitted at this time Time: 14:35 Medical Decision Making Medical Decision Making MDM Narrative: see course Differential Diagnosis Differential Diagnoses: The differential diagnosis associated with the presentation includes see course Admission/Observation Consideration of admission/observation: Escalation of care including admission/observation considered Consult Healthcare Provider Management of the patient was discussed with: Hospitalist (I discussed this case with DEVEN Mccann) and Conservator Artifacts (I discussed this case with the general surgeon Dr. Walters who came and evaluated the patient) Lab Data MDM Lab Attestation statement: I reviewed the patient's lab results. 11/18/23 10:33 11/18/23 11:04 Labs: Lab Results 11/18/23 11/18/23 11/18/23 Range/Units 10:33 11:04 11:37 WBC 19.7 H (4.8-10.8) X10*3/uL RBC 4.58 D (4.20-5.50) X10*6/uL Hgb 13.8 D (12.0-16.0) g/dl Hct 40.9 D (37.0-47.0) % MCV 89.3 (80.0-98.0) fL MCH 30.1 (27.0-33.0) pg MCHC 33.7 (31.0-35.0) g/dl RDW 15.4 (11.0-16.0) % Plt Count 431 H D (160-400) X10*3/uL MPV 9.6 (9.4-12.3) fL Immature Gran % (Auto) Cancelled Neut % (Auto) Cancelled Lymph % (Auto) Cancelled [place] % (Auto) Cancelled Eos % (Auto) Cancelled Baso % (Auto) Cancelled Lymph # (Auto) Cancelled [place] # (Auto) Cancelled Eos # (Auto) Cancelled Baso # (Auto) Cancelled Abs Immat Gran (auto) Cancelled Absolute Neuts (auto) Cancelled Absolute Nucleated RBC 0.000 (0.0-0.012) X10*3/uL Nucleated RBC % (auto) 0.0 (0.0-0.2) /100WBC Neutrophils % (Manual) 47 (45-73) % Band Neutrophils % 3 (3-5) % Lymphocytes % (Manual) 40 (20-40) % Monocytes % (Manual) 8 (2-11) % Eosinophils % (Manual) 2 (0-4) % Abs Neuts (Manual) 9.9 H (2.0-8.3) X10*3/uL Lymphocytes # (Manual) 7.9 H (1.2-4.9) X10*3/uL Monocytes # (Manual) 1.6 H (0.1-1.2) X10*3/uL Eosinophils # (Manual) 0.4 (0.0-0.4) X10*3/uL Platelet Estimate SLIGHTLY INCREASED (NORMAL) Plt Morphology Comment NORM RBC Morphology NORMAL Smear Tech's Comments MANUAL DIFF ESR (0-20) MM/HR Sodium 139 (135-145) mmol/L Potassium 3.5 (3.3-5.1) mmol/L Chloride 107 (96-108) mmol/L Carbon Dioxide 24 (22-29) mmol/L Anion Gap 12 (12-20) BUN 23 H (9-16) mg/dL Creatinine 0.82 (0.5-1.4) mg/dL Estim Creat Clear Calc 72.4 Estimated GFR > 60 Random Glucose 116 H (60-115) mg/dL Lactic Acid 1.5 (0.5-2.0) mmol/L Calcium 8.9 (8.4-10.2) mg/dL Magnesium 1.5 L (1.6-2.6) mg/dL Total Bilirubin 0.3 (0.0-1.0) mg/dL Direct Bilirubin 0.1 (0.0-0.5) mg/dL AST 9 (5-31) U/L ALT 11 (0-31) U/L Alkaline Phosphatase 53 (39-117) U/L C-Reactive Protein (< or = 0.50) mg/dL Total Protein 6.0 L (6.5-8.0) g/dL Albumin 3.5 (3.5-5.0) g/dL Lipase 6 L (8-78) U/L Beta HCG, Quant 3 mIU/mL Influenza Type A (PCR) NEGATIVE (Negative) Influenza Type B (PCR) NEGATIVE (Negative) RSV RNA Qual (PCR) NEGATIVE (Negative) SARS-CoV-2 RNA (RT-PCR) NEGATIVE (Negative) 11/18/23 Range/Units 11:49 WBC (4.8-10.8) X10*3/uL RBC (4.20-5.50) X10*6/uL Hgb (12.0-16.0) g/dl Hct (37.0-47.0) % MCV (80.0-98.0) fL MCH (27.0-33.0) pg MCHC (31.0-35.0) g/dl RDW (11.0-16.0) % Plt Count (160-400) X10*3/uL MPV (9.4-12.3) fL Immature Gran % (Auto) Neut % (Auto) Lymph % (Auto) [place] % (Auto) Eos % (Auto) Baso % (Auto) Lymph # (Auto) [place] # (Auto) Eos # (Auto) Baso # (Auto) Abs Immat Gran (auto) Absolute Neuts (auto) Absolute Nucleated RBC (0.0-0.012) X10*3/uL Nucleated RBC % (auto) (0.0-0.2) /100WBC Neutrophils % (Manual) (45-73) % Band Neutrophils % (3-5) % Lymphocytes % (Manual) (20-40) % Monocytes % (Manual) (2-11) % Eosinophils % (Manual) (0-4) % Abs Neuts (Manual) (2.0-8.3) X10*3/uL Lymphocytes # (Manual) (1.2-4.9) X10*3/uL Monocytes # (Manual) (0.1-1.2) X10*3/uL Eosinophils # (Manual) (0.0-0.4) X10*3/uL Platelet Estimate (NORMAL) Plt Morphology Comment RBC Morphology Smear Tech's Comments ESR 7 (0-20) MM/HR Sodium (135-145) mmol/L Potassium (3.3-5.1) mmol/L Chloride (96-108) mmol/L Carbon Dioxide (22-29) mmol/L Anion Gap (12-20) BUN (9-16) mg/dL Creatinine (0.5-1.4) mg/dL Estim Creat Clear Calc Estimated GFR Random Glucose (60-115) mg/dL Lactic Acid (0.5-2.0) mmol/L Calcium (8.4-10.2) mg/dL Magnesium (1.6-2.6) mg/dL Total Bilirubin (0.0-1.0) mg/dL Direct Bilirubin (0.0-0.5) mg/dL AST (5-31) U/L ALT (0-31) U/L Alkaline Phosphatase (39-117) U/L C-Reactive Protein 1.45 H (< or = 0.50) mg/dL Total Protein (6.5-8.0) g/dL Albumin (3.5-5.0) g/dL Lipase (8-78) U/L Beta HCG, Quant mIU/mL Influenza Type A (PCR) (Negative) Influenza Type B (PCR) (Negative) RSV RNA Qual (PCR) (Negative) SARS-CoV-2 RNA (RT-PCR) (Negative) Independent Interpretation I performed an independent interpretation of an: CT Scan (CT scan of abdomen pelvis with IV contrast reviewed by myself this is my independent interpretation agreeable radiologist report) Radiology Impression Discussion of test interpretation with radiology: I have reviewed the radiologist's reading. Radiologist Impression: FINDINGS: LOWER CHEST: Minimal dependent atelectasis in the left lung base. LIVER, GALLBLADDER, BILIARY TREE: Liver normal size and attenuation. No focal cystic or solid mass or intra-or extrahepatic ductal dilatation. Hepatic and portal veins patent. Gallbladder mammogram distended. As noted previously, there are a few layering calcified small gallstone seen within the gallbladder. No gallbladder wall thickening or pericholecystic edema is noted. PANCREAS: Normal. No ductal dilatation, mass, or surrounding stranding. SPLEEN: Normal size and appearance. Splenic vein patent. ADRENAL GLANDS AND KIDNEYS: Adrenal glands normal. Kidneys bilaterally symmetric in size and function. No focal mass, hydronephrosis, nephrolithiasis or perinephric stranding. URETERS AND BLADDER: Ureters decompressed and within normal limits. Bladder partially distended and within normal limits. PELVIC ORGANS: Unremarkable. GASTROINTESTINAL TRACT: There is persistent high-grade partial small bowel obstruction with abnormally dilated and fluid-filled loops of small bowel again seen with multiple air-fluid levels and mild wall thickening. In the mid abdomen, the small bowel loops measure up to 5.7 cm in diameter. In the pelvis, just prior to the long segment stricture of the distal and terminal ileum, the bowel loop measures up to 7.4 cm as compared to 6.7 cm previously. There is associated small volume free fluid in the right lower quadrant and pelvis. There is circumferential wall thickening and mucosal hyperenhancement of the strictured segment of the distal ileum and small bowel. There is surrounding mesenteric fat stranding and edema. Scribed second segment of circumferential bowel wall thickening involving the mid small bowel loop now appears less distended but continues to demonstrate abnormal circumferential bowel wall thickening (coronal series 6, image 33). There is no evidence of pneumatosis intestinalis or evidence of bowel perforation. No mesenteric venous gas is noted. The colon is decompressed and appears grossly unremarkable. Appendix is normal. LYMPHOVASCULAR STRUCTURES: Abdominal aorta normal in caliber. No periaortic collections. No abdominal or pelvic adenopathy. BONES: There is moderate degenerative disc disease at the lumbosacral junction. CT/CT abdomen pelvis w IV con IMPRESSION: * Persistent high-grade partial small bowel obstruction with long segment strictured an acutely inflamed segment of the distal ileum and terminal ileum. There is associated mesenteric fat stranding and edema and small volume free fluid in the right lower quadrant and pelvis. No evidence of bowel perforation or abscess formation is seen. * The second strictured segment of the mid small bowel loop previously described appears less distended but continues to demonstrate abnormal circumferential bowel wall thickening and mucosal hyperenhancement and is suspicious for a skip area of active Crohn's disease. * Cholelithiasis with no evidence of acute cholecystitis. Independent Historian Patient, medical records and nurse's External Record Review External record reviewed: Inpatient record, Office record, Outpatient record, Prior outpatient labs, Prior outpatient radiology, Primary care record and Outside ED record All prior labs/imaging/EKG and notes that are accessible in our system reviewed by myself Prescription Management I considered prescription management with: Pain Medication Chronic Conditions Patient?s care impacted by: Other (Crohn's disease) Social Determinants Patient?s care significantly limited by Social Determinants of Health including: Other Social Determinant of Health Medications Administered Generic Name Dose Route Start Last Admin Trade Name Freq PRN Reason Stop Dose Admin Sodium Chloride 1,000 mls @ 999 mls/hr 11/18/23 14:15 11/18/23 14:29 Ns IVCONT 11/18/23 15:15 999 mls/hr .Q1H1M ALONDRA Administration Discontinued Medications Generic Name Dose Route Start Last Admin Trade Name Freq PRN Reason Stop Dose Admin Diphenhydramine HCl 50 mg 11/18/23 10:05 11/18/23 10:43 Diphenhydramine Hcl 50 Mg/Ml Vial IVPUSH 11/18/23 10:06 50 mg ONCE ONE Administration Hydromorphone HCl 0.5 mg 11/18/23 10:05 11/18/23 10:43 Hydromorphone Hcl 0.5 Mg/0.5 Ml Syringe IVPUSH 11/18/23 10:06 0.5 mg ONCE ONE Administration Protocol Sodium Chloride 1,000 mls @ 999 mls/hr 11/18/23 10:00 11/18/23 11:45 Ns IVCONT 11/18/23 11:00 Infused .Q1H1M ALONDRA Infusion Magnesium Sulfate/Dextrose 1 gm in 100 mls @ 100 mls/hr 11/18/23 11:36 11/18/23 13:50 Magnesium Sulfate/D5w IV 11/18/23 12:35 Infused ONCE ONE Infusion Sodium Chloride 1,000 mls @ 999 mls/hr 11/18/23 13:15 11/18/23 13:57 Ns IVCONT 11/18/23 14:15 999 mls/hr .Q1H1M ALONDRA Administration Iohexol 100 ml 11/18/23 12:00 11/18/23 12:00 Iohexol 350 Mg/Ml 100 Ml Infus..Btl IV 11/18/23 12:01 85 ml ONCE ONE Administration Ketorolac Tromethamine 30 mg 11/18/23 10:06 11/18/23 10:42 Ketorolac Tromethamine 30 Mg/Ml Vial IVPUSH 11/18/23 10:07 30 mg ONCE ONE Administration Ondansetron HCl 4 mg 11/18/23 09:53 11/18/23 10:41 Ondansetron Hcl 4 Mg/2 Ml Vial IVPUSH 11/18/23 09:54 4 mg ONCE ONE Administration Critical Care Time Critical Care Time Critical Care Time: Yes Total Critical Care Time: 60 Attestation: I personally attest to this time spent taking care of the patient Discharge Plan Discharge Clinical Impression: Nausea & vomiting, Leukocytosis, Exacerbation of Crohn's disease, SBO (small bowel obstruction) Patient Disposition: Admitted As Inpatient
[2023-11-18 11:17] LABS: Band Neutrophils Percent 3 % (3-5); Eosinophils Absolute Manual 0.4 X10*3/uL (0.0-0.4); Eosinophils Percent Manual 2 % (0-4); Lymphocytes Absolute Manual 7.9 X10*3/uL (1.2-4.9); Lymphocytes Percent Manual 40 % (20-40); Monocytes Absolute Manual 1.6 X10*3/uL (0.1-1.2); Monocytes Percent Manual 8 % (2-11); Neutrophils Absolute Manual 9.9 X10*3/uL (2.0-8.3); Neutrophils Percent Manual 47 % (45-73)
[2023-11-18 11:18] LABS: RBC Morphology NORMAL
[2023-11-18 11:19] LABS: Platelet Estimate SLIGHTLY INCREASED (NORMAL); Platelet Morphology Comment NORM
[2023-11-18 11:24] LABS: Influenza A PCR NEGATIVE (Negative); Influenza B PCR NEGATIVE (Negative); Resp Syncy Virus RNA Qual PCR NEGATIVE (Negative); SARS COV2 PCR INHOUSE NEGATIVE (Negative)
[2023-11-18 11:28] LABS: Alanine Aminotransferase 11 U/L (0-31); Albumin Level 3.5 g/dL (3.5-5.0); Alkaline Phosphatase 53 U/L (39-117); Anion Gap 12 (12-20); Aspartate Amino Transferase 9 U/L (5-31); Bilirubin Direct 0.1 mg/dL (0.0-0.5); Bilirubin Total 0.3 mg/dL (0.0-1.0); Blood Urea Nitrogen 23 mg/dL (9-16); Calcium 8.9 mg/dL (8.4-10.2); Carbon Dioxide 24 mmol/L (22-29); Chloride 107 mmol/L (96-108); Creatinine Clr Calc Pharmacy 72.4; Estimated Glomerular Filt Rate > 60; Glucose Random 116 mg/dL (60-115); Lipase 6 U/L (8-78); Magnesium 1.5 mg/dL (1.6-2.6); Potassium 3.5 mmol/L (3.3-5.1); Sodium 139 mmol/L (135-145)
[2023-11-18 12:00] LABS: Lactic Acid 1.5 mmol/L (0.5-2.0)
[2023-11-18] MEDS: iohexoL 350 MG/ML 100 ML INFUS..BTL IV (12:00)
[2023-11-18 12:07] LABS: C Reactive Protein 1.45 mg/dL (< or = 0.50)
[2023-11-18] MEDS: Magnesium Sulfate/D5W 1 GM/100 ML PIGGYBACK IV (12:42)
[2023-11-18 12:53] LABS: Erythrocyte Sedimentation Rate 7 MM/HR (0-20)
[2023-11-18 14:49] LABS: Appearance Urine Clear; Color Urine Yellow; Glucose Urine UA Negative (Negative); Leukocyte Esterase Urine Negative (Negative); Nitrite Urine Negative (Negative); Specific Gravity - Urine >= 1.030 (1.005-1.025); Urine Blood Negative (Negative); Urine Ketones Trace mg/dL (Negative); Urine Protein Trace mg/dL (Neg-Trace)
--- NOTE | 2023-11-18 14:58 | PHA.MEDREC ---
Pharmacy Consult ? Medication Reconciliation Pharmacy has completed the medication reconciliation. spoke with patient to confirm medications. She reports that she is taking 6 of the 5mg prednisones (30mg) currently and she last took it this morning but threw up. She reports she last got her Humira yesterday.
--- NOTE | 2023-11-18 15:14 | P.HPHOSP_ITS ---
History of Present Illness Date of Service: 11/18/23 Attending physician on admission: Dusty Turpin Chief Complaint: Abdominal pain 40-year-old female with history of Crohn's disease, mood disorder presented to the ED earlier today for evaluation of severe diffuse abdominal pain that started yesterday. She has been constipated with a very small, hard bowel movement yesterday with bright red blood per rectum. Reports she has hemorrhoids. She also reports nausea and vomiting has stopped beta arrival to tolerate p.o.. No fevers or chills. No urinary symptoms. No shortness of breath, cough, lightheadedness, chest pain. She follows with Dr. Winters in Gastroenterology for management of her Crohn's disease and has been considering elective bowel resection. She is on Humira and is also currently on a prednisone she has had 2 recent admissions for Crohn's flares, the 1st from 11/01-11/03 and the 2nd from 11/07-11/11. Reports symptoms improve for a brief period within have been recurring. She has not been able to follow-up with gastroenterology since her most recent discharge but was seen by General surgery. She is being referred to [facility] for gastroenterology consult. On arrival, vital signs stable the blood pressure very soft. Did briefly become hypotensive following administration of Dilaudid and Benadryl with quick improvement to 99/39 which is consistent with baseline following IV fluids. She is afebrile. There is leukocytosis of 19.7. Renal function baseline, electrolyte levels normal except for magnesium 1.5. CT abdomen/pelvis shows persistent high-grade partial SBO with long segment stricture and acutely inflamed segment of the distal ileum and terminal ileum with associated mesenteric fat stranding and edema and small volume free fluid in the right lower quadrant and pelvis. The 2nd strictured segment of this mid small bowel loop previously described appears less distended but continues to demonstrate abnormal circumferential bowel wall thickening and mucosal hyperenhancement suspicious for a skip area of active Crohn disease. In the ED has been given multiple doses of IV Dilaudid, 50 mg Benadryl, ondansetron, 2 L IV NS, and 1 g magnesium. Review of Systems 2 Review of Systems: General: No fevers, malaise, unintentional weight loss HEENT: No blurred vision, diplopia. No sore throat, nasal congestion, rhinorrhea, sinus pain, ear pain Cardiovascular: No chest pain, palpitations, or leg edema Respiratory: No shortness of breath, wheezing, cough GI: +abd pain, +nausea/vomiting, +constipation, +BRBPR. No diarrhea, melena : No dysuria, hematuria, increased urinary frequency, decreased urinary output MSK: No myalgia, back pain Neuro: No headaches, weakness, paresthesias Skin: No rashes or lesions [facility] Medical History Crohn disease Crohn's disease Depression Social History Household Members: Unknown / Unable to assess Household Members Other:: grandmother Housing: House Do you presently have visiting nurse or other home services: No Alcohol intake: former Comment: pt refuses alarms Patient Tobacco Use Status: Former Tobacco user Quit Date: 3 days ago Tobacco use type: Cigarette Cigarette Packs Per Day: 0.5 Cigarettes Per Day: 2 Years Smoked: 34 e-Cigarette/Vaping Use: Currently Using Second Hand Smoke Exposure: No Advance Directives Date on File: 07/04/23 service: No Meds Allergies Allergy/AdvReac Type Severity Reaction Status Date / Time No Known Allergies Allergy Verified 11/16/23 14:41 [No Known Allergies*] Active Medications: Current Medications Sodium Chloride (Ns) 1,000 mls @ 999 mls/hr IVCONT .Q1H1M [facility] Stop: 11/18/23 15:15 Last Admin: 11/18/23 14:29 Dose: 999 mls/hr Sodium Chloride (0.9 % Sodium Chloride Flush 3 Ml Syringe) 3 ml IVFLUSH QSHIFT [facility] Home Medications Medication Instructions Recorded Confirmed Last Taken Type multivitamin with minerals-folic 2 tab PO DAILY 05/26/23 11/18/23 06/27/23 History acid 200 mcg chewable tablet (Multivitamin Gummies) acetaminophen 325 mg tablet 650 mg PO QID PRN Pain 11/01/23 11/18/23 Unknown History adalimumab 40 mg/0.8 mL 40 mg subcut Q2W 11/01/23 11/18/23 11/17/23 History subcutaneous syringe kit (Humira) ascorbic acid (vitamin C) 100 mg 100 mg PO DAILY 11/01/23 11/18/23 Unknown History tablet (Vitamin C) cholecalciferol (vitamin D3) 10 10 mcg PO DAILY 11/01/23 11/18/23 Unknown History mcg (400 unit) tablet (Vitamin D3) cyanocobalamin (vitamin B-12) 1,000 mcg PO DAILY 11/01/23 11/18/23 Unknown History 1,000 mcg tablet prednisone 5 mg tablet See Rx Instructions .ROUTE .COMPLEX 11/08/23 11/18/23 11/18/23 History Physical Exam 2 Vital Signs and Narrative: Vital Signs: Last Vital Signs Temp 98.3 F 11/18/23 13:47 Pulse 76 11/18/23 14:35 Resp 18 11/18/23 13:47 BP 99/39 L 11/18/23 14:35 Pulse Ox 98 11/18/23 13:47 O2 Del Method Room Air 11/18/23 13:47 BMI result Body Mass Index 21.2 Constitutional - Awake and Alert, No apparent distress Eyes - PERRLA, EOMI Cardiovascular - S1S2, RRR, No edema Respiratory - Normal lung expansion, Normal respiratory effort, No respiratory distress, CTA bilaterally Gastrointestinal - diffuse abd ttp, ND; +BS; No rebound or involuntary guarding Extremities - no calf tenderness bilaterally, no swelling Skin - Warm/Dry Neurological - Alert & oriented x3 Psychological - Appropriate affect Results Labs 11/18/23 10:33 11/18/23 11:04 Labs: Laboratory Results - last 24 hr 11/18/23 11/18/23 11/18/23 10:33 11:04 11:37 MCV 89.3 MCH 30.1 MCHC 33.7 RDW 15.4 Plt Count 431 H D MPV 9.6 Immature Gran % (Auto) Cancelled Neut % (Auto) Cancelled Lymph % (Auto) Cancelled [place] % (Auto) Cancelled Eos % (Auto) Cancelled Baso % (Auto) Cancelled Lymph # (Auto) Cancelled [place] # (Auto) Cancelled Eos # (Auto) Cancelled Baso # (Auto) Cancelled Abs Immat Gran (auto) Cancelled Absolute Neuts (auto) Cancelled Absolute Nucleated RBC 0.000 Nucleated RBC % (auto) 0.0 Neutrophils % (Manual) 47 Band Neutrophils % 3 Lymphocytes % (Manual) 40 Monocytes % (Manual) 8 Eosinophils % (Manual) 2 Abs Neuts (Manual) 9.9 H Lymphocytes # (Manual) 7.9 H Monocytes # (Manual) 1.6 H Eosinophils # (Manual) 0.4 Platelet Estimate SLIGHTLY INCREASED Plt Morphology Comment NORM RBC Morphology NORMAL Smear Tech's Comments MANUAL DIFF ESR Anion Gap 12 Estim Creat Clear Calc 72.4 Estimated GFR > 60 Random Glucose 116 H Lactic Acid 1.5 Calcium 8.9 Magnesium 1.5 L Total Bilirubin 0.3 Direct Bilirubin 0.1 AST 9 ALT 11 Alkaline Phosphatase 53 C-Reactive Protein Total Protein 6.0 L Albumin 3.5 Lipase 6 L Beta HCG, Quant 3 Urine Color Urine Appearance Urine pH Ur Specific [place] Urine Protein Urine Glucose (UA) Urine Ketones Urine Blood Urine Nitrite Ur Leukocyte Esterase Influenza Type A (PCR) NEGATIVE Influenza Type B (PCR) NEGATIVE RSV RNA Qual (PCR) NEGATIVE SARS-CoV-2 RNA (RT-PCR) NEGATIVE 11/18/23 11/18/23 11:49 14:38 MCV MCH MCHC RDW Plt Count MPV Immature Gran % (Auto) Neut % (Auto) Lymph % (Auto) [place] % (Auto) Eos % (Auto) Baso % (Auto) Lymph # (Auto) [place] # (Auto) Eos # (Auto) Baso # (Auto) Abs Immat Gran (auto) Absolute Neuts (auto) Absolute Nucleated RBC Nucleated RBC % (auto) Neutrophils % (Manual) Band Neutrophils % Lymphocytes % (Manual) Monocytes % (Manual) Eosinophils % (Manual) Abs Neuts (Manual) Lymphocytes # (Manual) Monocytes # (Manual) Eosinophils # (Manual) Platelet Estimate Plt Morphology Comment RBC Morphology Smear Tech's Comments ESR 7 Anion Gap Estim Creat Clear Calc Estimated GFR Random Glucose Lactic Acid Calcium Magnesium Total Bilirubin Direct Bilirubin AST ALT Alkaline Phosphatase C-Reactive Protein 1.45 H Total Protein Albumin Lipase Beta HCG, Quant Urine Color Yellow Urine Appearance Clear Urine pH 6.0 Ur Specific [place] >= 1.030 H Urine Protein Trace Urine Glucose (UA) Negative Urine Ketones Trace Urine Blood Negative Urine Nitrite Negative Ur Leukocyte Esterase Negative Influenza Type A (PCR) Influenza Type B (PCR) RSV RNA Qual (PCR) SARS-CoV-2 RNA (RT-PCR) Imaging Radiologist's Impressions: Impressions Abdomen/Pelvis CT 11/18/23 12:12 IMPRESSION: * Persistent high-grade partial small bowel obstruction with long segment strictured an acutely inflamed segment of the distal ileum and terminal ileum. There is associated mesenteric fat stranding and edema and small volume free fluid in the right lower quadrant and pelvis. No evidence of bowel perforation or abscess formation is seen. * The second strictured segment of the mid small bowel loop previously described appears less distended but continues to demonstrate abnormal circumferential bowel wall thickening and mucosal hyperenhancement and is suspicious for a skip area of active Crohn's disease. * Cholelithiasis with no evidence of acute cholecystitis. Assessment and Plan (1) Exacerbation of Crohn's disease: Status: Acute (2) Partial small bowel obstruction: Status: Acute Plan 40-year-old female with history of Crohn's disease, mood disorder admitted for crohns flare. #Active Crohns flare with partial SBO -on humira since 2023 -IV methylprednisolone 20mg q.8h -no active vomiting, hold on NG tube for now -Keep npo for now, advance diet as tolerated -pain management p.r.n. using pain scale -antiemetics p.r.n. -general surgery consult, Gastroenterology consult DVT prophylaxis-Lovenox Full code Patient requires inpatient stay at least 2 midnights for management of active Crohn's flare with partial SBO on IV steroids with NPO status and will require expert consultation Quality Stroke Does the patient have a stroke diagnosis?: No VTE Prior VTE?: No VTE Risk Level:: Medical - moderate - high VTE Device Contraindication: Treatment Not Indicated VTE Drug Contraindication: N/A - Med Ordered
--- NOTE | 2023-11-18 15:33 | PM.CNGS ---
History of Present Illness Consult details Consult date: 11/18/23 Narrative: Patient has a very long and complicated history of Crohn's disease. This includes multiple admissions for flare-ups/exacerbations and partial obstructions. She presents with a similar such episode. Patient has had several of these over the last several months time. Her abdominal symptoms are improved with analgesics. She said she passed some flatus and small stool earlier today. Chart was reviewed and patient evaluated. CT scan also reviewed. [facility] Past Medical History Medical History Crohn disease Crohn's disease Depression Social History Social History Household Members: Unknown / Unable to assess Household Members Other:: grandmother Housing: House Do you presently have visiting nurse or other home services: No Alcohol intake: former Comment: pt refuses alarms Patient Tobacco Use Status: Former Tobacco user Quit Date: 3 days ago Tobacco use type: Cigarette Cigarette Packs Per Day: 0.5 Cigarettes Per Day: 2 Years Smoked: 34 Smoked in Last 30 Days: No e-Cigarette/Vaping Use: Currently Using Second Hand Smoke Exposure: No Use of substances other than those prescribed or required for medical reasons: No Advance Directives: Yes Advance Directives on File: Yes Advance Directives Date on File: 07/04/23 Patient : No service: No Meds Allergies Allergy/AdvReac Type Severity Reaction Status Date / Time No Known Allergies Allergy Verified 11/16/23 14:41 [No Known Allergies*] Active Medications: Current Medications Acetaminophen (Acetaminophen 325 Mg Tablet) 650 mg PO Q6H PRN PRN Reason: Pain, Mild (Pain Scale 1-3) Enoxaparin Sodium (Enoxaparin Sodium 40 Mg/0.4 Ml Syringe) 40 mg SUBCUT Q24H ALONDRA Methylprednisolone Sodium Succinate (Methylprednisolone Sod Succ 40 Mg/Ml Vial) 20 mg IVPUSH Q8H ALONDRA Morphine Sulfate (Morphine Sulfate 2 Mg/Ml Cartridge) 2 mg IVPUSH Q4H PRN; Protocol PRN Reason: Pain, Severe (Pain Scale 7-10) Ondansetron HCl (Ondansetron Hcl 4 Mg/2 Ml Vial) 4 mg IVPUSH Q8H PRN PRN Reason: Nausea and Vomiting Polyethylene Glycol (Polyethylene Glycol 3350 17 Gm Powd.Pack) 17 gm PO DAILY PRN PRN Reason: Constipation Senna (Sennosides 8.6 Mg Tablet) 17.2 mg PO BEDTIME PRN PRN Reason: Constipation Sodium Chloride (0.9 % Sodium Chloride Flush 3 Ml Syringe) [facility] Medications Medication Instructions Recorded Confirmed Last Taken Type multivitamin with minerals-folic 2 tab PO DAILY 05/26/23 11/18/23 06/27/23 History acid 200 mcg chewable tablet (Multivitamin Gummies) acetaminophen 325 mg tablet 650 mg PO QID PRN Pain 11/01/23 11/18/23 Unknown History adalimumab 40 mg/0.8 mL 40 mg subcut Q2W 11/01/23 11/18/23 11/17/23 History subcutaneous syringe kit (Humira) ascorbic acid (vitamin C) 100 mg 100 mg PO DAILY 11/01/23 11/18/23 Unknown History tablet (Vitamin C) cholecalciferol (vitamin D3) 10 10 mcg PO DAILY 11/01/23 11/18/23 Unknown History mcg (400 unit) tablet (Vitamin D3) cyanocobalamin (vitamin B-12) 1,000 mcg PO DAILY 11/01/23 11/18/23 Unknown History 1,000 mcg tablet prednisone 5 mg tablet See Rx Instructions .ROUTE .COMPLEX 11/08/23 11/18/23 11/18/23 History Physical Exam Vital Signs: Vital Signs: Last Vital Signs Temp 98.1 F 11/18/23 15:32 Pulse 83 11/18/23 15:32 Resp 18 11/18/23 15:32 BP 99/60 11/18/23 15:32 Pulse Ox 97 11/18/23 15:32 O2 Del Method Room Air 11/18/23 15:32 BMI result Body Mass Index 21.2 GI: Other: Abdomen mildly distended, soft, very minimal upper abdominal tenderness but without any guarding, rebound, or rigidity. Results Labs 11/18/23 10:33 11/18/23 11:04 Labs: Abnormal lab results 11/18/23 11/18/23 11/18/23 Range/Units 10:33 11:04 11:49 WBC 19.7 H (4.8-10.8) X10*3/uL Plt Count 431 H D (160-400) X10*3/uL Abs Neuts (Manual) 9.9 H (2.0-8.3) X10*3/uL Lymphocytes # (Manual) 7.9 H (1.2-4.9) X10*3/uL Monocytes # (Manual) 1.6 H (0.1-1.2) X10*3/uL BUN 23 H (9-16) mg/dL Random Glucose 116 H (60-115) mg/dL Magnesium 1.5 L (1.6-2.6) mg/dL C-Reactive Protein 1.45 H (< or = 0.50) mg/dL Total Protein 6.0 L (6.5-8.0) g/dL Lipase 6 L (8-78) U/L Ur Specific [place] (1.005-1.025) 11/18/23 Range/Units 14:38 WBC (4.8-10.8) X10*3/uL Plt Count (160-400) X10*3/uL Abs Neuts (Manual) (2.0-8.3) X10*3/uL Lymphocytes # (Manual) (1.2-4.9) X10*3/uL Monocytes # (Manual) (0.1-1.2) X10*3/uL BUN (9-16) mg/dL Random Glucose (60-115) mg/dL Magnesium (1.6-2.6) mg/dL C-Reactive Protein (< or = 0.50) mg/dL Total Protein (6.5-8.0) g/dL Lipase (8-78) U/L Ur Specific [place] >= 1.030 H (1.005-1.025) Short CBC 11/18/23 Range/Units 10:33 WBC 19.7 H (4.8-10.8) X10*3/uL Hgb 13.8 D (12.0-16.0) g/dl Hct 40.9 D (37.0-47.0) % Plt Count 431 H D (160-400) X10*3/uL BMP 11/18/23 11:04 Sodium 139 Potassium 3.5 Chloride 107 Carbon Dioxide 24 BUN 23 H Creatinine 0.82 Calcium 8.9 Liver Function 11/18/23 Range/Units 11:04 Total Bilirubin 0.3 (0.0-1.0) mg/dL Direct Bilirubin 0.1 (0.0-0.5) mg/dL AST 9 (5-31) U/L ALT 11 (0-31) U/L Alkaline Phosphatase 53 (39-117) U/L Albumin 3.5 (3.5-5.0) g/dL Urine 11/18/23 Range/Units 14:38 Urine Color Yellow Urine Appearance Clear Urine pH 6.0 (5.0-9.0) Ur Specific [place] >= 1.030 H (1.005-1.025) Urine Protein Trace (Neg-Trace) mg/dL Urine Glucose (UA) Negative (Negative) mg/dL All other labs normal. Assessment and Plan (1) Exacerbation of Crohn's disease of small intestine: Status: Acute Patient presents with another exacerbation of her Crohn's disease. At present, no acute surgical issues Jose D treated. The patient to be admitted to hospitalist service with GI consultation and wrists operative measures and medical management commenced. To follow Procedures Date of Service Date of Service: 11/18/23
[2023-11-18] MEDS: Enoxaparin Sodium 40 MG/0.4 ML SYRINGE SUBCUT (16:08)
[2023-11-18] MEDS: methylPREDNISolone Sod Succ 40 MG/ML VIAL 20 MG IVPUSH ×2 (16:08→23:42)
[2023-11-18] MEDS: 0.9 % Sodium Chloride Flush 3 ML SYRINGE IVFLUSH ×2 (16:08→21:32)
--- NOTE | 2023-11-18 16:29 | PC.NURSE ---
Patient alert and oriented x 3. comoran and slovak speaking patient. Patient c/o 4/10 abdominal pain. iv right hand 20g. Patient on lovenox for anticoagulation. see chart for recent vitals. Will continue with plan of care.
[2023-11-18] MEDS: Morphine Sulfate 2 MG/ML CARTRIDGE IVPUSH ×2 (17:42→21:32)
[2023-11-19 03:29] VITALS: BP 107/60; PULSE 66; RESP 16; TEMP 36.2; O2SAT 98
[2023-11-19] MEDS: Morphine Sulfate 2 MG/ML CARTRIDGE IVPUSH ×4 (03:37→21:43)
[2023-11-19 05:49] LABS: Basophils Percent Auto 0.2 % (0-2); Eosinophils Percent Auto 0.2 % (0-4); Hematocrit 31.3 % (37.0-47.0); Hemoglobin 10.3 g/dl (12.0-16.0); Imm Gran Abs Auto 0.01 X10*3/uL (0.00-0.03); Imm Gran Pct Auto 0.2 % (0.0-0.4); Lymphocytes Absolute Auto 2.3 X10*3/uL (1.2-4.9); Lymphocytes Percent Auto 36.6 % (20-40); MANUAL DIFF FLAG SCAN; Mean Corpuscular HGB Conc 32.9 g/dl (31.0-35.0); Mean Corpuscular Hemoglobin 30.5 pg (27.0-33.0); Mean Corpuscular Volume 92.6 fL (80.0-98.0); Mean Platelet Volume 9.3 fL (9.4-12.3); Monocytes Absolute Auto 0.1 X10*3/uL (0.1-1.2); Monocytes Percent Auto 1.4 % (2-11); Neutrophils Absolute Auto 3.9 x10*3/uL (2.0-8.3); Neutrophils Percent Auto 61.4 % (45-73); Platelet Count 288 X10*3/uL (160-400); Red Blood Count 3.38 X10*6/uL (4.20-5.50); Red Cell Distribution Width 15.4 % (11.0-16.0); SCAN SMEAR FLAG 1; White Blood Count 6.3 X10*3/uL (4.8-10.8)
[2023-11-19 06:04] LABS: Anion Gap 11 (12-20); Blood Urea Nitrogen 10 mg/dL (9-16); Calcium 8.5 mg/dL (8.4-10.2); Carbon Dioxide 23 mmol/L (22-29); Chloride 108 mmol/L (96-108); Creatinine Clr Calc Pharmacy 91.4; Estimated Glomerular Filt Rate > 60; Glucose Random 104 mg/dL (60-115); Potassium 4.8 mmol/L (3.3-5.1); Sodium 137 mmol/L (135-145)
[2023-11-19 06:11] LABS: SLIDE REVIEW VERIFIED
[2023-11-19 07:56] VITALS: BP 107/73; PULSE 65; RESP 18; TEMP 36; O2SAT 100
[2023-11-19] MEDS: methylPREDNISolone Sod Succ 40 MG/ML VIAL 20 MG IVPUSH ×3 (08:18→23:20)
[2023-11-19] MEDS: 0.9 % Sodium Chloride Flush 3 ML SYRINGE IVFLUSH ×2 (08:24→15:39)
--- NOTE | 2023-11-19 09:23 | P.PNGS_ITS ---
Subjective Subjective Date of Service: 11/19/23 Interval history: Patient's abdominal discomfort/symptoms are improved. Some flatus but no stool last night. Physical Exam 2 Vital Signs: Vital Signs: Last Vital Signs Temp 96.8 F 11/19/23 07:56 Pulse 65 11/19/23 07:56 Resp 18 11/19/23 07:56 BP 107/73 11/19/23 07:56 Pulse Ox 100 11/19/23 07:56 O2 Del Method Room Air 11/19/23 07:56 BMI result Body Mass Index 21.2 GI: Other: Abdomen soft. Mild upper abdominal tenderness. No evidence of any guarding, rebound, or rigidity. Objective Data Active Medications Acetaminophen (Acetaminophen 325 Mg Tablet) 650 mg PO Q6H PRN PRN Reason: Pain, Mild (Pain Scale 1-3) Enoxaparin Sodium (Enoxaparin Sodium 40 Mg/0.4 Ml Syringe) 40 mg SUBCUT Q24H [facility] Last Admin: 11/18/23 16:08 Dose: 40 mg Documented By: LEXII Hydromorphone HCl (Hydromorphone Hcl 0.5 Mg/0.5 Ml Syringe) 0.5 mg IVPUSH Q2H PRN; Protocol PRN Reason: moderate pain Methylprednisolone Sodium Succinate (Methylprednisolone Sod Succ 40 Mg/Ml Vial) 20 mg IVPUSH Q8H [facility] Last Admin: 11/19/23 08:18 Dose: 20 mg Documented By: BRUNO Morphine Sulfate (Morphine Sulfate 2 Mg/Ml Cartridge) 2 mg IVPUSH Q4H PRN; Protocol PRN Reason: Pain, Severe (Pain Scale 7-10) Last Admin: 11/19/23 08:17 Dose: 2 mg Documented By: BRUNO Ondansetron HCl (Ondansetron Hcl 4 Mg/2 Ml Vial) 4 mg IVPUSH Q8H PRN PRN Reason: Nausea and Vomiting Last Admin: 11/18/23 21:38 Dose: 4 mg Documented By: ELISHA Polyethylene Glycol (Polyethylene Glycol 3350 17 Gm Powd.Pack) 17 gm PO DAILY PRN PRN Reason: Constipation Senna (Sennosides 8.6 Mg Tablet) 17.2 mg PO BEDTIME PRN PRN Reason: Constipation Sodium Chloride (0.9 % Sodium Chloride Flush 3 Ml Syringe) 3 ml IVFLUSH QSHIFT [facility] Last Admin: 11/19/23 08:24 Dose: 3 ml Documented By: BRUNO Labs 11/19/23 05:10 11/19/23 05:10 Labs: Laboratory Results - last 24 hr 11/18/23 11/18/23 11/18/23 10:33 11:04 11:37 MCV 89.3 MCH 30.1 MCHC 33.7 RDW 15.4 Plt Count 431 H D MPV 9.6 Immature Gran % (Auto) Cancelled Neut % (Auto) Cancelled Lymph % (Auto) Cancelled [place] % (Auto) Cancelled Eos % (Auto) Cancelled Baso % (Auto) Cancelled Lymph # (Auto) Cancelled [place] # (Auto) Cancelled Eos # (Auto) Cancelled Baso # (Auto) Cancelled Abs Immat Gran (auto) Cancelled Absolute Neuts (auto) Cancelled Absolute Nucleated RBC 0.000 Nucleated RBC % (auto) 0.0 Neutrophils % (Manual) 47 Band Neutrophils % 3 Lymphocytes % (Manual) 40 Monocytes % (Manual) 8 Eosinophils % (Manual) 2 Abs Neuts (Manual) 9.9 H Lymphocytes # (Manual) 7.9 H Monocytes # (Manual) 1.6 H Eosinophils # (Manual) 0.4 Platelet Estimate SLIGHTLY INCREASED Plt Morphology Comment NORM RBC Morphology NORMAL Smear Tech's Comments MANUAL DIFF ESR Anion Gap 12 Estim Creat Clear Calc 72.4 Estimated GFR > 60 Random Glucose 116 H Lactic Acid 1.5 Calcium 8.9 Magnesium 1.5 L Total Bilirubin 0.3 Direct Bilirubin 0.1 AST 9 ALT 11 Alkaline Phosphatase 53 C-Reactive Protein Total Protein 6.0 L Albumin 3.5 Lipase 6 L Beta HCG, Quant 3 Urine Color Urine Appearance Urine pH Ur Specific [place] Urine Protein Urine Glucose (UA) Urine Ketones Urine Blood Urine Nitrite Ur Leukocyte Esterase Influenza Type A (PCR) NEGATIVE Influenza Type B (PCR) NEGATIVE RSV RNA Qual (PCR) NEGATIVE SARS-CoV-2 RNA (RT-PCR) NEGATIVE 11/18/23 11/18/23 11/19/23 11:49 14:38 05:10 MCV 92.6 MCH 30.5 MCHC 32.9 RDW 15.4 Plt Count 288 D MPV 9.3 L Immature Gran % (Auto) 0.2 Neut % (Auto) 61.4 Lymph % (Auto) 36.6 [place] % (Auto) 1.4 L Eos % (Auto) 0.2 Baso % (Auto) 0.2 Lymph # (Auto) 2.3 [place] # (Auto) 0.1 Eos # (Auto) 0.0 Baso # (Auto) 0.0 Abs Immat Gran (auto) 0.01 Absolute Neuts (auto) 3.9 Absolute Nucleated RBC 0.000 Nucleated RBC % (auto) 0.0 Neutrophils % (Manual) Band Neutrophils % Lymphocytes % (Manual) Monocytes % (Manual) Eosinophils % (Manual) Abs Neuts (Manual) Lymphocytes # (Manual) Monocytes # (Manual) Eosinophils # (Manual) Platelet Estimate Plt Morphology Comment RBC Morphology Smear Tech's Comments VERIFIED ESR 7 Anion Gap 11 L Estim Creat Clear Calc 91.4 Estimated GFR > 60 Random Glucose 104 Lactic Acid Calcium 8.5 Magnesium Total Bilirubin Direct Bilirubin AST ALT Alkaline Phosphatase C-Reactive Protein 1.45 H Total Protein Albumin Lipase Beta HCG, Quant Urine Color Yellow Urine Appearance Clear Urine pH 6.0 Ur Specific [place] >= 1.030 H Urine Protein Trace Urine Glucose (UA) Negative Urine Ketones Trace Urine Blood Negative Urine Nitrite Negative Ur Leukocyte Esterase Negative Influenza Type A (PCR) Influenza Type B (PCR) RSV RNA Qual (PCR) SARS-CoV-2 RNA (RT-PCR) Procedures Date of Service Date of Service: 11/19/23 Progress Note: A&P Assessment and plan (1) Exacerbation of Crohn's disease of small intestine: Status: Acute Plan Continue current plan. No acute surgical issues at this time. Time Spent With Patient Time: Total time managing care of this patient today ____ minutes. Quality Stroke Does the patient have a stroke diagnosis?: No VTE Prior VTE?: No VTE Risk Level:: Medical - moderate - high VTE Device Contraindication: Treatment Not Indicated VTE Drug Contraindication: N/A - Med Ordered
--- NOTE | 2023-11-19 09:41 | HO.PM.IMPN ---
Subjective Subjective Date of Service: 11/19/23 Interval History: still with pain and nausea, no bm Physical Exam Vital Signs: Vital Signs: Last Vital Signs Temp 96.8 F 11/19/23 07:56 Pulse 65 11/19/23 07:56 Resp 18 11/19/23 07:56 BP 107/73 11/19/23 07:56 Pulse Ox 100 11/19/23 07:56 O2 Del Method Room Air 11/19/23 07:56 BMI result Body Mass Index 21.2 GI: Other: Abdomen soft. Mild upper abdominal tenderness. No evidence of any guarding, rebound, or rigidity. Objective Data Active Medications Acetaminophen (Acetaminophen 325 Mg Tablet) 650 mg PO Q6H PRN PRN Reason: Pain, Mild (Pain Scale 1-3) Enoxaparin Sodium (Enoxaparin Sodium 40 Mg/0.4 Ml Syringe) 40 mg SUBCUT Q24H [facility] Last Admin: 11/18/23 16:08 Dose: 40 mg Documented By: LEXII Hydromorphone HCl (Hydromorphone Hcl 0.5 Mg/0.5 Ml Syringe) 0.5 mg IVPUSH Q2H PRN; Protocol PRN Reason: moderate pain Methylprednisolone Sodium Succinate (Methylprednisolone Sod Succ 40 Mg/Ml Vial) 20 mg IVPUSH Q8H [facility] Last Admin: 11/19/23 08:18 Dose: 20 mg Documented By: BRUNO Morphine Sulfate (Morphine Sulfate 2 Mg/Ml Cartridge) 2 mg IVPUSH Q4H PRN; Protocol PRN Reason: Pain, Severe (Pain Scale 7-10) Last Admin: 11/19/23 08:17 Dose: 2 mg Documented By: BRUNO Ondansetron HCl (Ondansetron Hcl 4 Mg/2 Ml Vial) 4 mg IVPUSH Q8H PRN PRN Reason: Nausea and Vomiting Last Admin: 11/18/23 21:38 Dose: 4 mg Documented By: ELISHA Polyethylene Glycol (Polyethylene Glycol 3350 17 Gm Powd.Pack) 17 gm PO DAILY PRN PRN Reason: Constipation Senna (Sennosides 8.6 Mg Tablet) 17.2 mg PO BEDTIME PRN PRN Reason: Constipation Sodium Chloride (0.9 % Sodium Chloride Flush 3 Ml Syringe) [facility] Last Admin: 11/19/23 08:24 Dose: 3 ml Documented By: BRUNO Labs 11/19/23 05:10 11/19/23 05:10 Labs: Laboratory Results - last 24 hr 11/18/23 11/18/23 11/18/23 10:33 11:04 11:37 MCV 89.3 MCH 30.1 MCHC 33.7 RDW 15.4 Plt Count 431 H D MPV 9.6 Immature Gran % (Auto) Cancelled Neut % (Auto) Cancelled Lymph % (Auto) Cancelled [place] % (Auto) Cancelled Eos % (Auto) Cancelled Baso % (Auto) Cancelled Lymph # (Auto) Cancelled [place] # (Auto) Cancelled Eos # (Auto) Cancelled Baso # (Auto) Cancelled Abs Immat Gran (auto) Cancelled Absolute Neuts (auto) Cancelled Absolute Nucleated RBC 0.000 Nucleated RBC % (auto) 0.0 Neutrophils % (Manual) 47 Band Neutrophils % 3 Lymphocytes % (Manual) 40 Monocytes % (Manual) 8 Eosinophils % (Manual) 2 Abs Neuts (Manual) 9.9 H Lymphocytes # (Manual) 7.9 H Monocytes # (Manual) 1.6 H Eosinophils # (Manual) 0.4 Platelet Estimate SLIGHTLY INCREASED Plt Morphology Comment NORM RBC Morphology NORMAL Smear Tech's Comments MANUAL DIFF ESR Anion Gap 12 Estim Creat Clear Calc 72.4 Estimated GFR > 60 Random Glucose 116 H Lactic Acid 1.5 Calcium 8.9 Magnesium 1.5 L Total Bilirubin 0.3 Direct Bilirubin 0.1 AST 9 ALT 11 Alkaline Phosphatase 53 C-Reactive Protein Total Protein 6.0 L Albumin 3.5 Lipase 6 L Beta HCG, Quant 3 Urine Color Urine Appearance Urine pH Ur Specific [place] Urine Protein Urine Glucose (UA) Urine Ketones Urine Blood Urine Nitrite Ur Leukocyte Esterase Influenza Type A (PCR) NEGATIVE Influenza Type B (PCR) NEGATIVE RSV RNA Qual (PCR) NEGATIVE SARS-CoV-2 RNA (RT-PCR) NEGATIVE 11/18/23 11/18/23 11/19/23 11:49 14:38 05:10 MCV 92.6 MCH 30.5 MCHC 32.9 RDW 15.4 Plt Count 288 D MPV 9.3 L Immature Gran % (Auto) 0.2 Neut % (Auto) 61.4 Lymph % (Auto) 36.6 [place] % (Auto) 1.4 L Eos % (Auto) 0.2 Baso % (Auto) 0.2 Lymph # (Auto) 2.3 [place] # (Auto) 0.1 Eos # (Auto) 0.0 Baso # (Auto) 0.0 Abs Immat Gran (auto) 0.01 Absolute Neuts (auto) 3.9 Absolute Nucleated RBC 0.000 Nucleated RBC % (auto) 0.0 Neutrophils % (Manual) Band Neutrophils % Lymphocytes % (Manual) Monocytes % (Manual) Eosinophils % (Manual) Abs Neuts (Manual) Lymphocytes # (Manual) Monocytes # (Manual) Eosinophils # (Manual) Platelet Estimate Plt Morphology Comment RBC Morphology Smear Tech's Comments VERIFIED ESR 7 Anion Gap 11 L Estim Creat Clear Calc 91.4 Estimated GFR > 60 Random Glucose 104 Lactic Acid Calcium 8.5 Magnesium Total Bilirubin Direct Bilirubin AST ALT Alkaline Phosphatase C-Reactive Protein 1.45 H Total Protein Albumin Lipase Beta HCG, Quant Urine Color Yellow Urine Appearance Clear Urine pH 6.0 Ur Specific [place] >= 1.030 H Urine Protein Trace Urine Glucose (UA) Negative Urine Ketones Trace Urine Blood Negative Urine Nitrite Negative Ur Leukocyte Esterase Negative Influenza Type A (PCR) Influenza Type B (PCR) RSV RNA Qual (PCR) SARS-CoV-2 RNA (RT-PCR) Assessment and Plan (1) Exacerbation of Crohn's disease of small intestine: Status: Acute Plan 48F PMH crohns, mood disorder, presented with abd pain and nausea, found to have recurrent partial sbo crohns with acute flare and recurrent partial SBO continue iv steroids, npo, ivf pain control GI and surgery following dvt prorphylaxis - lovenox full code reason for continued hospitalization:not tolerating po Quality Stroke Does the patient have a stroke diagnosis?: No VTE Prior VTE?: No VTE Risk Level:: Medical - moderate - high VTE Device Contraindication: Treatment Not Indicated VTE Drug Contraindication: N/A - Med Ordered
[2023-11-19] MEDS: Dextrose 5 % and 0.45 % NaCl 1,000 ML 80 ML IVCONT ×2 (11:40→23:20)
[2023-11-19] MEDS: ondansetron HCL 4 MG/2 ML VIAL IVPUSH (13:51)
--- NOTE | 2023-11-19 15:21 | MHC.CM.PN ---
PT REPORTS SHE LIVES WITH HER DAD AND GRANDMOTHER SHE IS INDEPENDENT WITH CARE, HAS NO DME AND NO SERVICES HCP ON FILE PCP: JUDY TSAI DCP: HOME NO SERVCES VIA PRIVATE TRANSPORT
[2023-11-19 15:31] VITALS: BP 112/73; PULSE 77; RESP 18; TEMP 36.4; O2SAT 100
[2023-11-19] MEDS: Enoxaparin Sodium 40 MG/0.4 ML SYRINGE SUBCUT (15:34)
--- NOTE | 2023-11-19 16:00 | PM.EVENT ---
Event Note Date of Service: 11/19/23 Event Note: GI Consult-Full note dictated. History from patient and EMR. Imp: Refractory Crohn's with recurrent hospitalizations and SBO's despite continued outpatient prednisone, biweekly Humira(started in 09/2023), soft diet, and smoking cessation as of 1 month ago. Her recent Humira level was subtherapeutic and antibodies were negative. She has seen her primary GI at [place] and reports that plans are in the works to increase the Humira to weekly, although she does not know when that will happen. Her most recent Humira injection was on 11/16. She also saw Dr. Clinton this past week who mentioned a referral to [place] for surgical consultation. She presently reports feeling better since admission with less abdominal distention and pain. She is passing flatus. She is hungry. Her abdominal exam is presently soft, nondistended, and with mild diffuse tenderness, but without rebound/guarding. Rec: Continue IV steroids, start clear liquids, supportive care. Try to keep her on the IV steroids for another 24-48 hours and advance slowly to a soft, low residue diet if OK with surgery and as tolerated. Try to coordinate with her primary GI, Jamal Flowers at [place], regarding getting her started on the weekly Humira TAYLOR before the prednisone is lowered so as to see if that can stabilize things and prevention further hospitalizations. An appointment in [place] for a Crohn's specialist surgical opinion is a very good idea as well. D/W patient in detail and she is comfortable with the plan. Thanks Time Spent With Patient Time: Total time managing care of this patient today ____ minutes.
[2023-11-19 20:00] VITALS: BP 104/58; PULSE 78; RESP 18; TEMP 36.2; O2SAT 98
[2023-11-20 03:51] VITALS: BP 95/53; PULSE 57; RESP 18; TEMP 36.3; O2SAT 97
--- NOTE | 2023-11-20 04:43 | CONS_ITS ---
DATE OF SERVICE: 11/19/2023 REASON FOR CONSULTATION: Crohn's disease, abdominal pain, and small bowel obstruction. HISTORY OF PRESENT ILLNESS: This has been obtained from the patient and the medical record. The patient is a 48-year-old female diagnosed with Crohn's disease in 2021 and followed at [facility] by their GI Department with Jamal Flowers, [employer], being her primary provider. She has been on Humira injections since early September. She is presently on a biweekly regimen with her most recent injection on November 16. She has had multiple hospitalizations here over the past 6 months including 2 just in the last few weeks for recurrent episodes of abdominal pain and small bowel obstructions despite being treated with prednisone and Humira. She was just discharged about a week ago and has presently been on 30 mg of prednisone daily. She maintains herself on a very soft diet consisting mainly of things like soup. She was able to stop smoking a month ago and has not been using any NSAIDs. Over the past week, since her discharge from the hospital, she did follow up with Jamal Flowers at [place] and apparently the plan is to increase the Humira injections to weekly since her recent Humira level was subtherapeutic, and the antibody levels were nondetectable. However, that has not yet been arranged as far as starting her on a weekly regimen. She has also followed up with Dr. Clinton as of just a couple of days ago in his office, and he is planning to look for a referral for her to see a Crohn's surgeon specialist in [place]. However, due to worsening symptoms of pain and abdominal distention, as well as some vomiting at home, she came to the ER and was admitted. Her CT scan shows the same type of findings as previous with the small bowel involvement and small bowel obstruction. Since admission yesterday, she has been on IV steroids and does report that she is feeling somewhat better. She thinks her abdominal distention is less, and her tenderness is definitely improved. She is passing some flatus and reports that she is hungry. She is not having much in the way of any diarrhea. Her family history is notable for a cousin with Crohn's disease and her mother has colon cancer. MEDICATIONS: At home included Humira injections every other week, B12, vitamin D, acetaminophen, vitamins, Zofran p.r.n., and prednisone. Here in the hospital, she is currently on Lovenox, Dilaudid, methylprednisolone 20 mg IV every 8 hours, morphine p.r.n., Zofran p.r.n. PAST MEDICAL HISTORY: Aside from Crohn's disease. She denies any other medical problems. She denies any history of diabetes, heart disease, stroke, nor lung disease. She denies any significant surgeries. SOCIAL HISTORY: She stopped smoking about a month ago. She does not use any alcohol. 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 She is a . FAMILY HISTORY: As above with a cousin with Crohn's disease and her mother had colon cancer. REVIEW OF SYSTEMS: CONSTITUTIONAL: She has been feeling somewhat poorly in general due to the active Crohn's disease with some fatigue CARDIAC: No chest pain. PULMONARY: No coughing or hemoptysis. GI: As above. URINARY: No dysuria, no hematuria. NEUROLOGIC: No headache or seizures. PHYSICAL EXAMINATION: GENERAL: The patient is a pleasant, alert, comfortable-appearing female. SKIN: Warm and dry. Anicteric sclerae. Moist mucous membranes. NECK: Supple without lymphadenopathy. CHEST: Clear. CARDIAC: Normal S1, S2. ABDOMEN: Soft, nondistended. Bowel sounds are somewhat diminished. There is some mild diffuse tenderness but without mass, rebound, or guarding. EXTREMITIES: Without edema. LABORATORY DATA: Her CT scan describes similar findings as compared to her previous studies with a small bowel obstruction with dilated and fluid-filled loops of the small bowel with multiple air-fluid levels and some mild bowel wall thickening. There appears to be a long stricture in the distal and terminal ileum. There is some stranding of the mesenteric fat. There is no evidence of any free air, nor abscess. She does have some gallstones. Laboratories are notable for white blood cell count of 6.3, hemoglobin 10.3, MCV 93, platelets 288,000. Normal electrolytes. BUN 10, creatinine 0.7. C-reactive protein was 1.45. LFTs are normal with albumin of 3.5. Lipase is 6. IMPRESSION: The patient is a 48-year-old female with significant Crohn's disease involving the small bowel with stricture formation and small bowel obstruction despite treatment with outpatient steroids and biweekly Humira. At the present time, she has improved somewhat with IV steroids again, and her abdominal exam is fairly benign. However, clearly, she has severe Crohn's disease and may very well need surgical intervention despite the aggressive medical therapy. At this point, I would agree with continuing IV steroids, supportive care, and I think she can start a liquid diet today. However, it would be important to try to get her on the Humira weekly injections as soon as possible so it would be best to keep her on the IV steroids and then high dose outpatient prednisone until the weekly Humira injections can be arranged. Hopefully that can be coordinated with her primary GI provider at [facility]. She should stay on a very soft and low residue diet. She has already been seen by surgery here in the hospital, and I think the idea of having her see a surgical Crohn's disease specialist is a good idea as well given the appearance of her small bowel on the CT scans and her clinical course. I think she most likely will need surgical intervention at some point. We did review that she should obviously continue to avoid smoking and all NSAIDs. If things do improve in the hospital, her diet could be advanced slowly to a very soft and low residue diet. If her small bowel obstruction persists, then she may need surgical intervention during this hospitalization. This has all been discussed in detail with her, and she is comfortable with this plan. Thanks for the consultation. MD JOSELYN Tsang/ROMEO / [phone] ISIAH
[2023-11-20 07:25] LABS: Hematocrit 31.9 % (37.0-47.0); Hemoglobin 10.8 g/dl (12.0-16.0); Mean Corpuscular HGB Conc 33.9 g/dl (31.0-35.0); Mean Corpuscular Hemoglobin 31.4 pg (27.0-33.0); Mean Corpuscular Volume 92.7 fL (80.0-98.0); Mean Platelet Volume 9.6 fL (9.4-12.3); Platelet Count 316 X10*3/uL (160-400); Red Blood Count 3.44 X10*6/uL (4.20-5.50); Red Cell Distribution Width 15.1 % (11.0-16.0); White Blood Count 6.6 X10*3/uL (4.8-10.8)
[2023-11-20] MEDS: Morphine Sulfate 2 MG/ML CARTRIDGE IVPUSH ×3 (07:28→23:12)
[2023-11-20] MEDS: methylPREDNISolone Sod Succ 40 MG/ML VIAL 20 MG IVPUSH ×3 (07:28→23:13)
[2023-11-20] MEDS: 0.9 % Sodium Chloride Flush 3 ML SYRINGE IVFLUSH ×2 (07:34→15:10)
[2023-11-20 07:36] VITALS: BP 129/79; PULSE 72; RESP 18; TEMP 36.1; O2SAT 97
[2023-11-20 07:42] LABS: Anion Gap 10 (12-20); Blood Urea Nitrogen 8 mg/dL (9-16); Calcium 8.9 mg/dL (8.4-10.2); Carbon Dioxide 27 mmol/L (22-29); Chloride 105 mmol/L (96-108); Creatinine Clr Calc Pharmacy 88.7; Estimated Glomerular Filt Rate > 60; Glucose Fasting 156 mg/dL (60-99); Potassium 4.4 mmol/L (3.3-5.1); Sodium 138 mmol/L (135-145)
--- NOTE | 2023-11-20 08:14 | HO.PM.IMPN ---
Subjective Subjective Date of Service: 11/20/23 Interval History: still with pain, not interested in advancing diet Physical Exam Vital Signs: Vital Signs: Last Vital Signs Temp 96.9 F 11/20/23 07:36 Pulse 72 11/20/23 07:36 Resp 18 11/20/23 07:36 BP 129/79 11/20/23 07:36 Pulse Ox 97 11/20/23 07:36 O2 Del Method Room Air 11/20/23 07:36 BMI result Body Mass Index 21.2 GI: Other: Abdomen soft. Mild upper abdominal tenderness. No evidence of any guarding, rebound, or rigidity. Objective Data Active Medications Acetaminophen (Acetaminophen 325 Mg Tablet) 650 mg PO Q6H PRN PRN Reason: Pain, Mild (Pain Scale 1-3) Enoxaparin Sodium (Enoxaparin Sodium 40 Mg/0.4 Ml Syringe) 40 mg SUBCUT Q24H [facility] Last Admin: 11/19/23 15:34 Dose: 40 mg Documented By: BRUNO Hydromorphone HCl (Hydromorphone Hcl 0.5 Mg/0.5 Ml Syringe) 0.5 mg IVPUSH Q2H PRN; Protocol PRN Reason: moderate pain Dextrose/Sodium Chloride (D51/2ns) 1,000 mls @ 80 mls/hr IVCONT .[id number] [facility] Last Admin: 11/19/23 23:20 Dose: 80 mls/hr Documented By: MARIMAR Methylprednisolone Sodium Succinate (Methylprednisolone Sod Succ 40 Mg/Ml Vial) 20 mg IVPUSH Q8H [facility] Last Admin: 11/20/23 07:28 Dose: 20 mg Documented By: NAVID Morphine Sulfate (Morphine Sulfate 2 Mg/Ml Cartridge) 2 mg IVPUSH Q4H PRN; Protocol PRN Reason: Pain, Severe (Pain Scale 7-10) Last Admin: 11/20/23 07:28 Dose: 2 mg Documented By: NAVID Ondansetron HCl (Ondansetron Hcl 4 Mg/2 Ml Vial) 4 mg IVPUSH Q8H PRN PRN Reason: Nausea and Vomiting Last Admin: 11/19/23 13:51 Dose: 4 mg Documented By: BRUNO Polyethylene Glycol (Polyethylene Glycol 3350 17 Gm Powd.Pack) 17 gm PO DAILY PRN PRN Reason: Constipation Senna (Sennosides 8.6 Mg Tablet) 17.2 mg PO BEDTIME PRN PRN Reason: Constipation Sodium Chloride (0.9 % Sodium Chloride Flush 3 Ml Syringe) 3 ml IVFLUSH [facility] Last Admin: 11/20/23 07:34 Dose: 3 ml Documented By: NAVID Labs 11/20/23 05:46 11/20/23 05:46 Labs: Laboratory Results - last 24 hr 11/20/23 05:46 MCV 92.7 MCH 31.4 MCHC 33.9 RDW 15.1 Plt Count 316 MPV 9.6 Absolute Nucleated RBC 0.000 Nucleated RBC % (auto) 0.0 Anion Gap 10 L Estim Creat Clear Calc 88.7 Estimated GFR > 60 Fasting Glucose 156 H Calcium 8.9 Magnesium 2.0 Microbiology Microbiology Results: Microbiology 11/18/23 11:49 Blood Culture - Preliminary Blood - Venous No growth after 24 hours. 11/18/23 11:37 Blood Culture - Preliminary Blood - Venous No growth after 24 hours. Assessment and Plan (1) Exacerbation of Crohn's disease of small intestine: Status: Acute Plan 48F PMH crohns, mood disorder, presented with abd pain and nausea, found to have recurrent partial sbo crohns with acute flare and recurrent partial SBO continue iv steroids, clears, ivf pain control GI and surgery following dvt prorphylaxis - lovenox full code reason for continued hospitalization:not tolerating solids Quality Stroke Does the patient have a stroke diagnosis?: No VTE Prior VTE?: No VTE Risk Level:: Medical - moderate - high VTE Device Contraindication: Treatment Not Indicated VTE Drug Contraindication: N/A - Med Ordered
[2023-11-20] MEDS: ondansetron HCL 4 MG/2 ML VIAL IVPUSH (11:43)
[2023-11-20 13:32] VITALS: BMI 21.2
--- NOTE | 2023-11-20 13:42 | MHC.CLN ---
NUTRITION CONSULT FOR WEIGHT LOSS. DIET=CLEAR LIQUIDS. HAD SOME CL AT [facility]. DID NOT TAKE LUNCH. TIRED AT TIME OF VISIT. ADDING ENSURE CLEAR TID TO INCREASE NUTRITIONAL INTAKE. PROVIDES 720 KCALS, 24 G PROTEIN. SIGNIFICANT WEIGHT LOSS X 6 MONTHS LIKELY DUE TO POOR PO INTAKE WITH EXACERBATION OF CROHN'S AND MULTIPLE HOSPITALIZATIONS. FOLLOW FOR WEIGHT, INTAKE, AND DIET TOLERANCE. SEE CLINICAL NUTRITION ASSESSMENT 11/20/23.
[2023-11-20] MEDS: Dextrose 5 % and 0.45 % NaCl 1,000 ML 80 ML IVCONT (14:13)
--- NOTE | 2023-11-20 14:53 | MHC.CM.PN ---
pt not medically ready for dc at this time
[2023-11-20] MEDS: Enoxaparin Sodium 40 MG/0.4 ML SYRINGE SUBCUT (15:10)
[2023-11-20 15:20] VITALS: BP 103/59; PULSE 66; RESP 16; TEMP 36.1; O2SAT 96
--- NOTE | 2023-11-20 17:13 | P.PNGI_ITS ---
Subjective Subjective Date of Service: 11/20/23 Interval History: She reports some N/V and abdominal pain this morning, but none since then. She is passing flatus but no BM's. She did not have much in the way of her clear liquids, although she would like to try a more substantial diet. Critical Care Time (minutes): 0 Physical Exam 2 Vital Signs: Vital Signs: Last Vital Signs Temp 97 F 11/20/23 15:20 Pulse 66 11/20/23 15:20 Resp 16 11/20/23 15:20 BP 103/59 L 11/20/23 15:20 Pulse Ox 96 11/20/23 15:20 O2 Del Method Room Air 11/20/23 15:20 BMI result Body Mass Index 21.2 Const: General: cooperative, healthy appearing, comfortable, no acute distress, well developed, alert and awake Nutritional Appearance: well nourished HEENT: Other: Anicteric, MMM GI: Other: Abd- soft, +BS, nondistended, some mild diffuse tenderness but without mass, rebound, or guarding Extrem: General: Yes no pedal edema Objective Data Labs 11/20/23 05:46 11/20/23 05:46 Labs: Laboratory Results - last 24 hr 11/20/23 05:46 WBC 6.6 RBC 3.44 L Hgb 10.8 L Hct 31.9 L MCV 92.7 MCH 31.4 MCHC 33.9 RDW 15.1 Plt Count 316 MPV 9.6 Absolute Nucleated RBC 0.000 Nucleated RBC % (auto) 0.0 Sodium 138 Potassium 4.4 Chloride 105 Carbon Dioxide 27 Anion Gap 10 L BUN 8 L Creatinine 0.67 Estim Creat Clear Calc 88.7 Estimated GFR > 60 Fasting Glucose 156 H Calcium 8.9 Magnesium 2.0 Microbiology Microbiology Results: Microbiology 11/18/23 11:49 Blood - Venous Blood Culture - Preliminary No growth after 48 hours. 11/18/23 11:37 Blood - Venous Blood Culture - Preliminary No growth after 48 hours. Procedures Date of Service Date of Service: 11/20/23 Progress Note: A&P Assessment and plan (1) Exacerbation of Crohn's disease of small intestine: Status: Acute (2) Partial small bowel obstruction: Status: Acute Assessment and Plan: Imp/Recs: Crohn's disease exacerbation with significant small bowel involvement and at least a partial SBO on admission. She seems to be improving from a clinical standpoint with a fairly benign abdomen, but did have N/V this AM. Given the amount and degree of small bowel involvement, along with refractory symptoms to Humira and prednisone, she does have a high probability of requiring surgical intervention. Since things seem to be stable and somewhat improved, I would recommend advancing her diet to Full Liquids, as well as continuing the IV steroids, follow up labs in the morning, and follow up an abdominal xray in the AM to assess for any degree of ongoing obstruction. I have also instructed her to call her GI provider at [facility] first thing in the morning, 11/20, to let her know she is in the hospital again and to try to find out when she will able to to start the weekly Humira injections. We did review the potential need for surgical intervention if the SBO persists and she remains symptomatic. Thanks Time Spent With Patient Time: Total time managing care of this patient today ____ minutes. Quality Stroke Does the patient have a stroke diagnosis?: No VTE Prior VTE?: No VTE Risk Level:: Medical - moderate - high VTE Device Contraindication: Treatment Not Indicated VTE Drug Contraindication: N/A - Med Ordered
[2023-11-20 19:48] VITALS: BP 135/73; PULSE 76; RESP 16; TEMP 36.4; O2SAT 97
[2023-11-20] MEDS: Sennosides 8.6 MG TABLET 17.2 MG PO (23:18)
[2023-11-21] MEDS: Dextrose 5 % and 0.45 % NaCl 1,000 ML 80 ML IVCONT (01:16)
[2023-11-21] MEDS: Pantoprazole Sodium 40 MG/10 ML VIAL IVPUSH ×2 (01:16→16:28)
[2023-11-21 03:16] VITALS: BP 98/54; PULSE 63; RESP 16; TEMP 36.6; O2SAT 98
[2023-11-21 06:08] LABS: Hematocrit 30.6 % (37.0-47.0); Hemoglobin 10.1 g/dl (12.0-16.0); Mean Corpuscular Hemoglobin 30.2 pg (27.0-33.0); Mean Corpuscular Volume 91.6 fL (80.0-98.0); Mean Platelet Volume 9.6 fL (9.4-12.3); Platelet Count 314 X10*3/uL (160-400); Red Blood Count 3.34 X10*6/uL (4.20-5.50); Red Cell Distribution Width 14.9 % (11.0-16.0); White Blood Count 7.6 X10*3/uL (4.8-10.8)
[2023-11-21 06:10] LABS: Anion Gap 9 (12-20); Blood Urea Nitrogen 9 mg/dL (9-16); Calcium 8.8 mg/dL (8.4-10.2); Carbon Dioxide 29 mmol/L (22-29); Chloride 105 mmol/L (96-108); Estimated Glomerular Filt Rate > 60; Glucose Fasting 138 mg/dL (60-99); Sodium 139 mmol/L (135-145)
[2023-11-21 07:19] VITALS: BP 141/60; PULSE 58; RESP 16; TEMP 36.6; O2SAT 98
[2023-11-21] MEDS: methylPREDNISolone Sod Succ 40 MG/ML VIAL 20 MG IVPUSH ×3 (07:21→23:19)
--- NOTE | 2023-11-21 09:00 | P.PNIM_ITS ---
Subjective Subjective Date of Service: 11/21/23 Interval History: feeling a bit better today, wants to stick with full liquids Physical Exam 2 Vital Signs: Vital Signs: Last Vital Signs Temp 97.9 F 11/21/23 07:19 Pulse 58 11/21/23 07:19 Resp 16 11/21/23 07:19 BP 141/60 H 11/21/23 07:19 Pulse Ox 98 11/21/23 07:19 O2 Del Method Room Air 11/21/23 07:19 BMI result Body Mass Index 21.2 Const: General: cooperative, healthy appearing, comfortable, no acute distress, well developed, alert and awake Nutritional Appearance: well nourished HEENT: Other: Anicteric, MMM GI: Other: Abd- soft, +BS, nondistended, some mild diffuse tenderness but without mass, rebound, or guarding Extrem: General: Yes no pedal edema Objective Data Active Medications Acetaminophen (Acetaminophen 325 Mg Tablet) 650 mg PO Q6H PRN PRN Reason: Pain, Mild (Pain Scale 1-3) Enoxaparin Sodium (Enoxaparin Sodium 40 Mg/0.4 Ml Syringe) 40 mg SUBCUT Q24H [facility] Last Admin: 11/20/23 15:10 Dose: 40 mg Documented By: NAVID Hydromorphone HCl (Hydromorphone Hcl 0.5 Mg/0.5 Ml Syringe) 0.5 mg IVPUSH Q2H PRN; Protocol PRN Reason: moderate pain Dextrose/Sodium Chloride (D51/2ns) 1,000 mls @ 80 mls/hr IVCONT .[id number] [facility] Last Infusion: 11/21/23 08:18 Dose: Infused Documented By: MARGARET Methylprednisolone Sodium Succinate (Methylprednisolone Sod Succ 40 Mg/Ml Vial) 20 mg IVPUSH Q8H [facility] Last Admin: 11/21/23 07:21 Dose: 20 mg Documented By: MARGARET Morphine Sulfate (Morphine Sulfate 2 Mg/Ml Cartridge) 2 mg IVPUSH Q4H PRN; Protocol PRN Reason: Pain, Severe (Pain Scale 7-10) Last Admin: 11/20/23 23:12 Dose: 2 mg Documented By: MARIMAR Ondansetron HCl (Ondansetron Hcl 4 Mg/2 Ml Vial) 4 mg IVPUSH Q8H PRN PRN Reason: Nausea and Vomiting Last Admin: 11/20/23 11:43 Dose: 4 mg Documented By: NAVID Pantoprazole Sodium (Pantoprazole Sodium 40 Mg/10 Ml Vial) 40 mg IVPUSH BID@0630,1630 [facility] Last Admin: 11/21/23 01:16 Dose: 40 mg Documented By: MARIMAR Polyethylene Glycol (Polyethylene Glycol 3350 17 Gm Powd.Pack) 17 gm PO DAILY PRN PRN Reason: Constipation Senna (Sennosides 8.6 Mg Tablet) 17.2 mg PO BEDTIME PRN PRN Reason: Constipation Last Admin: 11/20/23 23:18 Dose: 17.2 mg Documented By: MARIMAR Sodium Chloride (0.9 % Sodium Chloride Flush 3 Ml Syringe) 3 ml IVFLUSH QSHIFT [facility] Last Admin: 11/21/23 07:07 Dose: Not Given Documented By: MARGARET Non-Admin Reason: IV Running Labs 11/21/23 05:00 11/21/23 05:00 Labs: Laboratory Results - last 24 hr 11/21/23 05:00 MCV 91.6 MCH 30.2 MCHC 33.0 RDW 14.9 Plt Count 314 MPV 9.6 Absolute Nucleated RBC 0.000 Nucleated RBC % (auto) 0.0 Anion Gap 9 L Estim Creat Clear Calc 90.0 Estimated GFR > 60 Fasting Glucose 138 H Calcium 8.8 Microbiology Microbiology Results: Microbiology 11/18/23 11:49 Blood Culture - Preliminary Blood - Venous No growth after 48 hours. 11/18/23 11:37 Blood Culture - Preliminary Blood - Venous No growth after 48 hours. Assessment and Plan (1) Exacerbation of Crohn's disease of small intestine: Status: Acute Plan 48F PMH crohns, mood disorder, presented with abd pain and nausea, found to have recurrent partial sbo crohns with acute flare and recurrent partial SBO continue iv steroids, full liquids pain control GI and surgery following dvt prorphylaxis - lovenox full code reason for continued hospitalization:not tolerating solids Quality Stroke Does the patient have a stroke diagnosis?: No VTE Prior VTE?: No VTE Risk Level:: Medical - moderate - high VTE Device Contraindication: Treatment Not Indicated VTE Drug Contraindication: N/A - Med Ordered
[2023-11-21] MEDS: HYDROmorphone HCl 0.5 MG/0.5 ML SYRINGE IVPUSH ×2 (09:35→20:49)
--- NOTE | 2023-11-21 10:14 | MHC.CM.PN ---
pt dcd home no servies
[2023-11-21] MEDS: ondansetron HCL 4 MG/2 ML VIAL IVPUSH (13:24)
--- NOTE | 2023-11-21 14:33 | PC.NURSE ---
Pt alert and oriented x4, independent with ADLs, diet advance to full liuquid, Pt does complain of some nausea and pain- medicated per MAR with good effect, Pt is OOB in chair visitors at bedside.
[2023-11-21] MEDS: Enoxaparin Sodium 40 MG/0.4 ML SYRINGE SUBCUT (14:54)
[2023-11-21 14:58] VITALS: BP 120/59; PULSE 69; RESP 17; TEMP 36.2; O2SAT 99
[2023-11-21] MEDS: 0.9 % Sodium Chloride Flush 3 ML SYRINGE IVFLUSH ×2 (16:28→20:49)
[2023-11-21 19:09] VITALS: BP 116/56; PULSE 69; RESP 18; TEMP 36.6; O2SAT 97
--- NOTE | 2023-11-21 19:22 | PM.GIPN ---
Subjective Subjective Date of Service: 11/21/23 Interval History: Feeling OK, tolerating full liquids except for some cramps, passing flatus, no BM's, no N/V. She spoke with her Primary GI at [facility], and states that she is going to be started on Rinvoq for her Crohn's rather than increasing Humira to weekly injections. Critical Care Time (minutes): 0 Physical Exam Vital Signs: Vital Signs: Last Vital Signs Temp 98 F 11/21/23 19:09 Pulse 69 11/21/23 19:09 Resp 18 11/21/23 19:09 BP 116/56 L 11/21/23 19:09 Pulse Ox 97 11/21/23 19:09 O2 Del Method Room Air 11/21/23 19:09 BMI result Body Mass Index 21.2 Const: General: cooperative, healthy appearing, comfortable, no acute distress, well developed, alert, awake and Physically active HEENT: Other: Anicteric, MMM GI: Other: Abd-soft, nondistended, +BS, NT, no guarding/rebound Objective Data Labs 11/21/23 05:00 11/21/23 05:00 Labs: Laboratory Results - last 24 hr 11/21/23 05:00 WBC 7.6 RBC 3.34 L Hgb 10.1 L Hct 30.6 L MCV 91.6 MCH 30.2 MCHC 33.0 RDW 14.9 Plt Count 314 MPV 9.6 Absolute Nucleated RBC 0.000 Nucleated RBC % (auto) 0.0 Sodium 139 Potassium 4.0 Chloride 105 Carbon Dioxide 29 Anion Gap 9 L BUN 9 Creatinine 0.66 Estim Creat Clear Calc 90.0 Estimated GFR > 60 Fasting Glucose 138 H Calcium 8.8 Imaging Abdominal x-ray: My impression: No sign of bowel obstruction and much improved from the CT KUB on admission Radiologist's impression: N/A Microbiology Microbiology Results: Microbiology 11/18/23 11:49 Blood - Venous Blood Culture - Preliminary No growth after 48 hours. 11/18/23 11:37 Blood - Venous Blood Culture - Preliminary No growth after 48 hours. Procedures Date of Service Date of Service: 11/21/23 Progress Note: A&P Assessment and plan (1) SBO (small bowel obstruction): Status: Acute (2) Exacerbation of Crohn's disease of small intestine: Status: Acute Assessment and Plan: Imp/Recs: Her SBO and Crohn's has improved on the IV steroids based on her history, exam, and xray findings. I think her diet can be advanced and she can be switched to po steroids for the AM. I had a lengthy discussion with her and her daughter this evening regarding the need to stay on an extremely soft diet(such as smoothies, liquid supplements, eggs, soups, etc) and on the 40mg of prednisone until she can get started on the Rinvoq from [facility]. We reviewed the severity of her Crohn's with potential for continued flares and SBO's requiring hospitalizations and potential surgery. She was told to avoid all NSAIDs and smoking. If she is stable in the AM, 11/21, she can be discharged with close F/U by her primary GI at [facility]. She understood and was comfortable with this plan. Thanks Time Spent With Patient Time: Total time managing care of this patient today ____ minutes. Quality Stroke Does the patient have a stroke diagnosis?: No VTE Prior VTE?: No VTE Risk Level:: Medical - moderate - high VTE Device Contraindication: Treatment Not Indicated VTE Drug Contraindication: N/A - Med Ordered
[2023-11-21 20:49] VITALS: RESP 19
[2023-11-21] MEDS: Sennosides 8.6 MG TABLET 17.2 MG PO (20:58)
[2023-11-21] MEDS: polyethylene glycoL 3350 17 GM POWD.PACK PO (20:58)
[2023-11-22 03:29] VITALS: BP 117/59; PULSE 57; RESP 16; TEMP 36.2; O2SAT 95
[2023-11-22] MEDS: Pantoprazole Sodium 40 MG/10 ML VIAL IVPUSH (05:42)
[2023-11-22 05:49] LABS: Hematocrit 30.8 % (37.0-47.0); Hemoglobin 10.3 g/dl (12.0-16.0); Mean Corpuscular HGB Conc 33.4 g/dl (31.0-35.0); Mean Corpuscular Hemoglobin 30.3 pg (27.0-33.0); Mean Corpuscular Volume 90.6 fL (80.0-98.0); Mean Platelet Volume 9.2 fL (9.4-12.3); Platelet Count 306 X10*3/uL (160-400); Red Cell Distribution Width 14.7 % (11.0-16.0)
[2023-11-22 06:06] LABS: Anion Gap 10 (12-20); Blood Urea Nitrogen 14 mg/dL (9-16); Calcium 9.4 mg/dL (8.4-10.2); Carbon Dioxide 30 mmol/L (22-29); Chloride 103 mmol/L (96-108); Creatinine Clr Calc Pharmacy 87.3; Estimated Glomerular Filt Rate > 60; Glucose Fasting 129 mg/dL (60-99); Potassium 4.2 mmol/L (3.3-5.1); Sodium 139 mmol/L (135-145)
[2023-11-22 07:32] VITALS: BP 127/69; PULSE 70; RESP 18; TEMP 36.1; O2SAT 97
[2023-11-22] MEDS: predniSONE 20 MG TABLET 40 MG PO (07:41)
[2023-11-22] MEDS: 0.9 % Sodium Chloride Flush 3 ML SYRINGE IVFLUSH (07:41)
--- NOTE | 2023-11-22 08:45 | HO.PM.IMPN ---
Subjective Subjective Date of Service: 11/22/23 Interval History: feeling better, wants to try solids Physical Exam Vital Signs: Vital Signs: Last Vital Signs Temp 96.9 F 11/22/23 07:32 Pulse 70 11/22/23 07:32 Resp 18 11/22/23 07:32 BP 127/69 11/22/23 07:32 Pulse Ox 97 11/22/23 07:32 O2 Del Method Room Air 11/22/23 07:32 BMI result Body Mass Index 21.2 Const: General: cooperative, healthy appearing, comfortable, no acute distress, well developed, alert, awake and Physically active HEENT: Other: Anicteric, MMM GI: Other: Abd-soft, nondistended, +BS, NT, no guarding/rebound Objective Data Active Medications Acetaminophen (Acetaminophen 325 Mg Tablet) 650 mg PO Q6H PRN PRN Reason: Pain, Mild (Pain Scale 1-3) Enoxaparin Sodium (Enoxaparin Sodium 40 Mg/0.4 Ml Syringe) 40 mg SUBCUT Q24H [facility] Last Admin: 11/21/23 14:54 Dose: 40 mg Documented By: MARGARET Hydromorphone HCl (Hydromorphone Hcl 0.5 Mg/0.5 Ml Syringe) 0.5 mg IVPUSH Q2H PRN; Protocol PRN Reason: moderate pain Last Admin: 11/21/23 20:49 Dose: 0.5 mg Documented By: SHREYA Morphine Sulfate (Morphine Sulfate 2 Mg/Ml Cartridge) 2 mg IVPUSH Q4H PRN; Protocol PRN Reason: Pain, Severe (Pain Scale 7-10) Last Admin: 11/20/23 23:12 Dose: 2 mg Documented By: MARIMAR Ondansetron HCl (Ondansetron Hcl 4 Mg/2 Ml Vial) 4 mg IVPUSH Q8H PRN PRN Reason: Nausea and Vomiting Last Admin: 11/21/23 13:24 Dose: 4 mg Documented By: MARGARET Pantoprazole Sodium (Pantoprazole Sodium 40 Mg/10 Ml Vial) 40 mg IVPUSH BID@0630,1630 [facility] Last Admin: 11/22/23 05:42 Dose: 40 mg Documented By: COTEMA Polyethylene Glycol (Polyethylene Glycol 3350 17 Gm Powd.Pack) 17 gm PO DAILY PRN PRN Reason: Constipation Last Admin: 11/21/23 20:58 Dose: 17 gm Documented By: PABLITOEMA Prednisone (Prednisone 20 Mg Tablet) 40 mg PO DAILY [facility] Last Admin: 11/22/23 07:41 Dose: 40 mg Documented By: NAVID Senna (Sennosides 8.6 Mg Tablet) 17.2 mg PO BEDTIME PRN PRN Reason: Constipation Last Admin: 11/21/23 20:58 Dose: 17.2 mg Documented By: PABLITOEMA Sodium Chloride (0.9 % Sodium Chloride Flush 3 Ml Syringe) 3 ml IVFLUSH QSHIFT [facility] Last Admin: 11/22/23 07:41 Dose: 3 ml Documented By: NAVID Labs 11/22/23 05:13 11/22/23 05:13 Labs: Laboratory Results - last 24 hr 11/22/23 05:13 MCV 90.6 MCH 30.3 MCHC 33.4 RDW 14.7 Plt Count 306 MPV 9.2 L Absolute Nucleated RBC 0.000 Nucleated RBC % (auto) 0.0 Anion Gap 10 L Estim Creat Clear Calc 87.3 Estimated GFR > 60 Fasting Glucose 129 H Calcium 9.4 D Assessment and Plan (1) Exacerbation of Crohn's disease of small intestine: Status: Acute Plan 48F PMH crohns, mood disorder, presented with abd pain and nausea, found to have recurrent partial sbo crohns with acute flare and recurrent partial SBO changed to prednisone solids pain control GI and surgery following dvt prorphylaxis - lovenox full code reason for continued hospitalization:awaiting tolerance of solids Quality Stroke Does the patient have a stroke diagnosis?: No VTE Prior VTE?: No VTE Risk Level:: Medical - moderate - high VTE Device Contraindication: Treatment Not Indicated VTE Drug Contraindication: N/A - Med Ordered
--- NOTE | 2023-11-22 08:52 | PM.DS ---
DS: Providers Provider Date of Service: 11/22/23 Date of admission: 11/18/23 15:09 Primary care physician: Gwendolyn Luis MD Consults: 11/18/23 15:09 Consult to Gastroenterology Routine Consulting Provider: Lukasz Auguste Reason for consultation: crohns flare 11/18/23 15:21 Consult to General Surgery Routine Consulting Provider: [facility] Reason for consultation: crohns flare, partial sbo DS: Diagnosis Discharge Diagnosis (1) Exacerbation of Crohn's disease of small intestine: Status: Acute DS: Summary Hospital Course Hospital Course: from initial hpi: 40-year-old female with history of Crohn's disease, mood disorder presented to the ED earlier today for evaluation of severe diffuse abdominal pain that started yesterday. She has been constipated with a very small, hard bowel movement yesterday with bright red blood per rectum. Reports she has hemorrhoids. She also reports nausea and vomiting has stopped beta arrival to tolerate p.o.. No fevers or chills. No urinary symptoms. No shortness of breath, cough, lightheadedness, chest pain. She follows with Dr. Winters in Gastroenterology for management of her Crohn's disease and has been considering elective bowel resection. She is on Humira and is also currently on a prednisone she has had 2 recent admissions for Crohn's flares, the 1st from 11/01-11/03 and the 2nd from 11/07-11/11. Reports symptoms improve for a brief period within have been recurring. She has not been able to follow-up with gastroenterology since her most recent discharge but was seen by General surgery. She is being referred to [facility] for gastroenterology consult. On arrival, vital signs stable the blood pressure very soft. Did briefly become hypotensive following administration of Dilaudid and Benadryl with quick improvement to 99/39 which is consistent with baseline following IV fluids. She is afebrile. There is leukocytosis of 19.7. Renal function baseline, electrolyte levels normal except for magnesium 1.5. CT abdomen/pelvis shows persistent high-grade partial SBO with long segment stricture and acutely inflamed segment of the distal ileum and terminal ileum with associated mesenteric fat stranding and edema and small volume free fluid in the right lower quadrant and pelvis. The 2nd strictured segment of this mid small bowel loop previously described appears less distended but continues to demonstrate abnormal circumferential bowel wall thickening and mucosal hyperenhancement suspicious for a skip area of active Crohn disease. In the ED has been given multiple doses of IV Dilaudid, 50 mg Benadryl, ondansetron, 2 L IV NS, and 1 g magnesium. hospital course: Patient was admitted for Crohn's with acute flare and recurrent partial small-bowel obstruction. She was treated with IV fluids, IV opiates and IV steroids. Her symptoms slowly improved. Her diet was advanced and is now tolerating solids. She was seen by Gastroenterology recommended staying on prednisone 40 mg until seen by [facility]. Recommended to avoid NSAIDs and smoking and to stick to a soft diet. Time Attestation Discharge Coordination Time (in mins): 35 Quality: Safe Use of Opioids Does Pt have an Active Cancer Diagnosis on the Problem List?: No Quality: Stroke Does the patient have a stroke diagnosis?: No Physical Exam Vital Signs: Vital Signs: Last Vital Signs Temp 96.9 F 11/22/23 07:32 Pulse 70 11/22/23 07:32 Resp 18 11/22/23 07:32 BP 127/69 11/22/23 07:32 Pulse Ox 97 11/22/23 07:32 O2 Del Method Room Air 11/22/23 07:32 BMI result Body Mass Index 21.2 General: AO X 3, no acute distress Resp: CTA bilateral, no accessory muscles used CVS: S1,S2,RRR GI: soft, non tender, non distended Neuro: motor grossly intact, alert Psych: appropriate affect, appropriate insight DS: Data Data Completed and Pending Labs on day of discharge: Laboratory Results - last 24 hr 11/22/23 05:13 WBC 8.0 RBC 3.40 L Hgb 10.3 L Hct 30.8 L MCV 90.6 MCH 30.3 MCHC 33.4 RDW 14.7 Plt Count 306 MPV 9.2 L Absolute Nucleated RBC 0.000 Nucleated RBC % (auto) 0.0 Sodium 139 Potassium 4.2 Chloride 103 Carbon Dioxide 30 H Anion Gap 10 L BUN 14 Creatinine 0.68 Estim Creat Clear Calc 87.3 Estimated GFR > 60 Fasting Glucose 129 H Calcium 9.4 D Preliminary micro results at discharge 11/18/23 11:49 Blood Culture - Preliminary Blood - Venous No growth after 48 hours. 11/18/23 11:37 Blood Culture - Preliminary Blood - Venous No growth after 48 hours. Discharge Plan Discharge Anticipated Discharge Date/Time: 11/22/23 08:48 Patient Disposition: Home, Self-Care Discharge Diagnosis: sbo, crohns Referrals: Physician,Unknown J [Physician] - 1 Week Discharge Medications: New prednisone 20 mg Tablet 40 mg PO DAILY 20 Days Qty: 40 0RF Continued acetaminophen 325 mg Tablet 650 mg PO QID PRN (Reason: Pain) cyanocobalamin (vitamin B-12) 1,000 mcg Tablet 1,000 mcg PO DAILY Vitamin C 100 mg Tablet 100 mg PO DAILY cholecalciferol (vitamin D3) [Vitamin D3] 10 mcg (400 unit) Tablet 10 mcg PO DAILY Humira 40 mg/0.8 mL Syringe Kit 40 mg SUBCUT Q2W ondansetron 4 mg tablet,disintegrating 4 mg PO Q8H PRN (Reason: nausea and vomiting) Qty: 12 0RF multivit with min-folic acid [Multivitamin Gummies] 200 mcg Tablet,Chewable 2 tab PO DAILY Discontinued prednisone 5 mg tablet See Rx Instructions .ROUTE .COMPLEX Taper: Prednisone 40 daily for 3 Days and 0 Hour 35 daily for 7 Days and 0 Hour 30 daily for 7 Days and 0 Hour 25 daily for 7 Days and 0 Hour 20 daily for 7 Days and 0 Hour 15 daily for 7 Days and 0 Hour 10 daily for 7 Days and 0 Hour 5 daily for 7 Days and 0 Hour Rx Instructions: see taper instructions: Take 8 tablets for 7 days then reduce by one tablet every 7 days until complete Diet: soft diet Activity on Discharge: As tolerated Stand Alone Forms: Patient Portal Discharge page Care Plan Goals: manage crohns Health Concerns: crohns Plan of Treatment: prendisone 40mg daily until seen by [facility], avoid nsaids and smoking Assessment: see above
--- NOTE | 2023-11-22 09:55 | MHC.CLN ---
F/U DIET ADVANCED TO REGULAR, LOW FIBER, LACTOSE FREE. SUPPLEMENT ENSURE CLEAR TID (720 KCALS, 24 G PROTEIN). TOLERATING SOLIDS. INTAKE 0-100%. CONTINUE CURRENT DIET AND SUPPLEMENT. MONITOR INTAKE AND DIET TOLERANCE.
--- NOTE | 2023-11-22 11:29 | MHC.CM.PN ---
PT DCD HOME NO SERVIES
== END 2023-11-22 12:04 | disposition home or self-care (01) | DRG 245 ==
LOC: HO.ED 14:13 → HO.EDOVER 15:19 → HO.S3 16:29
PROVIDERS: Physician Assistant Medical; Admitting Provider Physician Assistant; Emergency Provider Emergency Medicine; PCP Internal Medicine; Visit Provider Internal Medicine
DX: K50.012 Crohn's disease of small intestine with intestinal obstruction (principal); F39 Unspecified mood [affective] disorder; Z20.822 Contact with and (suspected) exposure to COVID-19; Z79.52 Long term (current) use of systemic steroids; Z79.620 Long term (current) use of immunosuppressive biologic; Z87.891 Personal history of nicotine dependence; Z79.899 Other long term (current) drug therapy
CPT/HCPCS: 0241U; 36415; 74022; 74177; 80048; 80053; 81003; 82248; 83605; 83690; 83735; 84702; 85007; 85025; 85027; 85652; 86140; 87040; 99285; C9113; J1170; J1200; J1650; J1885; J2270; J2405; J2920; J3475; Q9967

== ENCOUNTER → 2023-11-18 15:09 | Outpatient (BNV) | payer OTHER, SELFPAY | PROVIDERS: Admitting Provider Physician Assistant; Emergency Provider Emergency Medicine; Visit Provider Physician Assistant | DX: K50.00 Crohn's disease of small intestine without complications (principal); K56.600 Partial intestinal obstruction, unspecified as to cause | CPT/HCPCS: 99223; 99232; 99239; 99499 ==

== ENCOUNTER → 2023-11-18 15:09 | Outpatient (BNV) | payer OTHER, SELFPAY | PROVIDERS: Admitting Provider Physician Assistant; Emergency Provider Emergency Medicine; Visit Provider Surgery | DX: K50.00 Crohn's disease of small intestine without complications (principal) | CPT/HCPCS: 99222; 99232 ==

== ENCOUNTER 2023-12-13 19:02 | Inpatient (IN) | payer OTHER, SELFPAY ==
--- NOTE | ~2023-12-13 | CT_ITS ---
EXAMINATION: CT ABDOMEN AND PELVIS WITH CONTRAST CLINICAL INFORMATION: Abdominal pain. History of Crohn's disease. COMPARISON: 11/18/2023 TECHNIQUE: Multidetector volumetric images were obtained from the superior aspect of the liver through the pubic symphysis following administration 85 mL of Omnipaque 350 intravenous contrast. Sagittal and coronal reformatted images were obtained on the technologist's workstation. Oral contrast: No This CT examination was performed using dose optimization techniques as appropriate, variously including the following: *Automated exposure control *Adjustment of mA and/or kV according to patient size (this includes techniques or standardized protocols for targeted exams where dose is matched to indication/reason for exam; i.e. extremities or head) *Use of iterative reconstruction technique DLP: 328 mGy-cm FINDINGS: LUNG BASES: The visualized lung bases are unremarkable. LIVER, GALLBLADDER, AND BILIARY TREE: The liver is normal in size, shape, and attenuation. No focal hepatic lesion or biliary ductal dilatation is present. Multiple gallstones are noted. PANCREAS: Unremarkable. SPLEEN: Unremarkable. ADRENAL GLANDS: Unremarkable. KIDNEYS AND URETERS: The kidneys are normal in size, shape, and attenuation. No hydronephrosis, hydroureter, or calculi seen. No perinephric stranding. BLADDER: Unremarkable. GASTROINTESTINAL TRACT: There are dilated mid to distal small bowel loops measuring up to 6 cm with mild thickening extending into a significant area of thickened in the mid to distal small bowel. The terminal small bowel is grossly within normal limits. The most proximal small bowel is also within normal limits. The appendix is visualized and is within normal limits. The colon is unremarkable. ABDOMINAL WALL: No significant hernia is appreciated. LYMPH NODES: Normal. VASCULAR: Unremarkable. PELVIC VISCERA: Unremarkable. OSSEOUS STRUCTURES: The bone mineralization is normal. CT/CT abdomen pelvis w IV con IMPRESSION: 1. Dilated mid to distal small bowel loops measuring up to 6 cm with mild thickening extending into a significant area of thickened mid to distal small bowel. The terminal small bowel is grossly within normal limits. The proximal small bowel is also within normal limits. The findings are consistent with the patient's history of Crohn's disease. A component of partial small bowel obstruction is a consideration. 2. Cholelithiasis. Fleischner guidelines were followed.
--- NOTE | ~2023-12-13 | MR_ITS ---
EXAMINATION: MR LUMBAR SPINE WITHOUT CONTRAST CLINICAL INFORMATION: Severe R hip/buttock pain in patient on prednisone COMPARISON: None TECHNIQUE: MRI of the lumbar spine was obtained using routine sequences without contrast. FINDINGS: Normal anatomic alignment. No suspicious marrow signal or focal osseous lesion. Disc desiccation and height loss at L5-S1 with type II predominant endplate marrow signal changes. The vertebral body heights are maintained. The conus medullaris terminates at the level of L1. The distal spinal cord is normal in appearance. The cauda equina nerve roots appear normal. No significant abnormalities of the paraspinal musculature. Limited evaluation of the intra-abdominal structures without significant abnormalities. The abdominal aorta is of normal contour and caliber. SPINAL LEVELS: L1-L2: No significant spinal canal or neuroforaminal narrowing. L2-L3: No significant spinal canal or neuroforaminal narrowing. L3-L4: No significant spinal canal or neuroforaminal narrowing. L4-L5: No significant spinal canal or neuroforaminal narrowing. L5-S1: Left eccentric disc osteophyte complex with far left lateral component. Mild facet arthropathy. No significant central spinal canal stenosis. Mild to moderate bilateral neural foraminal narrowing and extraforaminal impingement of the left L5 nerve root MR/MR lumbar spine wo con IMPRESSION: 1. At L5-S1, there is degenerative disc and facet disease contributing to mild to moderate bilateral neural foraminal narrowing and extraforaminal impingement of the left L5 nerve root. 2. Otherwise unremarkable MRI of the lumbar spine.
--- NOTE | ~2023-12-13 | CT_ITS ---
EXAMINATION: CT HIP WITHOUT CONTRAST, RIGHT CLINICAL INFORMATION: Severe right hip pain. Evaluate for avascular necrosis, fracture. COMPARISON: Multiple priors, most recent CT abdomen/pelvis dated 12/13/2023 and 11/18/2023. TECHNIQUE: Multidetector volumetric imaging was obtained through the right hip without contrast material. Multiplanar reformatted images were submitted in coronal and sagittal planes. This CT examination was performed using dose optimization techniques as appropriate, variously including the following: *Automated exposure control *Adjustment of mA and/or kV according to patient size (this includes techniques or standardized protocols for targeted exams where dose is matched to indication/reason for exam; i.e. extremities or head) *Use of iterative reconstruction technique DLP: 190 mGy-cm FINDINGS: No acute fracture or dislocation. No significant joint space narrowing. Tiny acetabular marginal osteophytes. No concerning lytic or blastic osseous lesion. No evidence of avascular necrosis. Partially visualized prominent degenerative disc disease at L5-S1, better evaluated on the recent CT abdomen/pelvis. No visualized pelvic fracture. No large right hip joint effusion. No soft tissue mass or fluid collection. The visualized intrapelvic structures are grossly unremarkable. The muscles and tendons are grossly intact however, evaluation is limited on CT examination. CT/CT hip RT wo IV con IMPRESSION: 1. No acute fracture or dislocation. No evidence of avascular necrosis. 2. Minimal right hip osteoarthritis. 3. Partially visualized prominent degenerative disc disease at L5-S1, better evaluated on the recent CT abdomen/pelvis.
--- NOTE | ~2023-12-13 | XR_ITS ---
EXAMINATION: XR CHEST CLINICAL INFORMATION: Fever. COMPARISON: 09/22/2021 TECHNIQUE: Frontal view of the chest was obtained. FINDINGS: No significant abnormality is noted involving the heart, lungs, mediastinum, bony thorax or soft tissues. XR/XR chest 1V IMPRESSION: Unremarkable examination.
--- NOTE | ~2023-12-13 | MR_ITS ---
EXAMINATION: MR HIP WITHOUT CONTRAST, RIGHT CLINICAL INFORMATION: Severe right hip/buttock pain. Patient on prednisone. Rule out avascular necrosis. COMPARISON: CT 12/14/2023 TECHNIQUE: MRI of the right hip was obtained using routine sequences on a high-field strength magnet. FINDINGS: Motion artifact on the axial T2 fat-sat sequence, limiting evaluation. BONE/JOINTS: No significant right hip joint space narrowing. No significant chondral loss. Tiny lateral acetabular marginal osteophytes. No evidence of acute fracture or stress reaction. No findings to suggest avascular necrosis. No aggressive marrow replacing lesion seen. LABRUM: No labral tear is identified. No paralabral cyst. MUSCLES/TENDONS: Mild distal gluteus minimus tendinosis. Mild-moderate gluteus medius tendinosis. Mild intermediate signal in the iliopsoas tendon, could relate to motion artifact versus mild tendinosis. No muscle tear is identified. JOINT FLUID/BURSA: Trace joint fluid. No significant greater trochanteric or iliopsoas bursitis. INTRAPELVIS STRUCTURES: No inguinal adenopathy. Urinary bladder appears unremarkable. No acute findings in the pelvis. On the coronal T1 sequence the pelvis, there is normal left hip alignment. SI joints and symphysis pubis intact. MR/MR hip RT wo con IMPRESSION: 1. No evidence of right hip acute fracture or dislocation. No evidence of stress reaction. No evidence of avascular necrosis. 2. Minimal right hip arthritis. 3. Mild distal gluteus minimus tendinosis. Mild-moderate gluteus medius tendinosis. Subtle iliopsoas findings could be related to motion artifact versus mild tendinosis.
[2023-12-13 19:24] VITALS: BP 102/77; BP 103/57; PULSE 91; PULSE 93; RESP 19; TEMP 37.2; O2SAT 100; O2SAT 99; BMI 21.4
--- NOTE | 2023-12-13 19:30 | ECG_ITS ---
Test Reason : PAIN Blood Pressure : / mmHG Vent. Rate : 088 BPM Atrial Rate : 088 BPM P-R Int : 142 ms QRS Dur : 072 ms QT Int : 340 ms P-R-T Axes : 062 042 032 degrees QTc Int : 411 ms Normal sinus rhythm Normal ECG When compared with ECG of 01-NOV-2023 14:08, No significant change was found Referred By: Generic ED Physician Electronically Signed By:Arnulfo Hill
[2023-12-13 19:50] VITALS: TEMP 39.2
--- NOTE | 2023-12-13 19:51 | ED.GENADULT ---
HPI - General Adult General Chief complaint: Abdominal Pain Stated complaint: body aches, abd pain, nausea and vomiting Time Seen by Provider: 12/13/23 19:40 Source: patient Mode of arrival: EMS Limitations: no limitations History of Present Illness HPI narrative: Patient is started on Rinvoq for Crohn disease on 12/04/2023 for last 3 days patient noticed fever body aches running nose on arrival patient's temperature of 102.5 degrees muscle complaining of diffuse abdominal pain with diarrhea Related Data Home Medications ?Medication ?Instructions ?Recorded ?Confirmed multivitamin with minerals-folic 2 tab PO DAILY 05/26/23 11/18/23 acid 200 mcg chewable tablet (Multivitamin Gummies) acetaminophen 325 mg tablet 650 mg PO QID PRN Pain 11/01/23 11/18/23 adalimumab 40 mg/0.8 mL 40 mg subcut Q2W 11/01/23 11/18/23 subcutaneous syringe kit (Humira) ascorbic acid (vitamin C) 100 mg 100 mg PO DAILY 11/01/23 11/18/23 tablet (Vitamin C) cholecalciferol (vitamin D3) 10 10 mcg PO DAILY 11/01/23 11/18/23 mcg (400 unit) tablet (Vitamin D3) cyanocobalamin (vitamin B-12) 1,000 mcg PO DAILY 11/01/23 11/18/23 1,000 mcg tablet Previous Rx's ?Medication ?Instructions ?Recorded ondansetron 4 mg disintegrating 4 mg PO Q8H PRN nausea and 11/04/23 tablet vomiting #12 tabs prednisone 20 mg tablet 40 mg (2 x 20 mg) PO DAILY 20 days 11/22/23 #40 tabs Allergies Allergy/AdvReac Type Severity Reaction Status Date / Time No Known Allergies Allergy Verified 12/13/23 19:29 [No Known Allergies*] Review of Systems Review of Systems: Yes all other systems are reviewed and are negative PMFSH Past Medical History Medical History Crohn disease Crohn's disease Depression Social History Social History Household Members: Family Household Members Other:: grandmother Housing: House Do you presently have visiting nurse or other home services: No Alcohol intake: former Comment: pt refuses alarms Patient Tobacco Use Status: Former Tobacco user Quit Date: 3 days ago Tobacco use type: Cigarette Cigarette Packs Per Day: 0.5 Cigarettes Per Day: 2 Years Smoked: 34 e-Cigarette/Vaping Use: Currently Using Second Hand Smoke Exposure: No Use of substances other than those prescribed or required for medical reasons: No Advance Directives: Yes Advance Directives on File: Yes Advance Directives Date on File: 07/04/23 Patient : No service: No Physical Exam ED Vital Signs: Vital Signs - 24 hr 12/13/23 19:24 12/13/23 19:50 12/13/23 21:20 Temperature 98.9 F 102.5 F H 99.4 F Pulse Rate 91 Respiratory Rate 19 Blood Pressure 102/77 Pulse Oximetry 100 Oxygen Delivery Method Room Air 12/13/23 22:00 12/14/23 00:45 12/14/23 01:16 Temperature 98.5 F 98.1 F Pulse Rate 81 73 71 Respiratory Rate 15 16 16 Blood Pressure 92/56 L 89/52 L 99/53 L Pulse Oximetry 97 99 100 Oxygen Delivery Method Room Air Room Air Room Air 12/14/23 02:12 Temperature Pulse Rate 77 Respiratory Rate 16 Blood Pressure 85/37 L Pulse Oximetry 99 Oxygen Delivery Method Room Air BMI result Body Mass Index 21.4 Appearance: Alert. Oriented X3. Mild distress. Febrile Eyes: No pallor or icterus ENT: Pharynx normal. Oral Mucosa moist Neck: Normal inspection. Neck supple. CVS: Tachycardic Pulses normal. Respiratory: No respiratory distress. Equal air entry bilateral, no wheezing/rales/rhonchi Abdomen: Soft diffuse tenderness Bowel sounds are present, no mass palpable, no CVA tenderness Skin: Skin warm and dry. Normal skin color. Normal skin turgor. Extremities: No lower extremity edema. No calf tenderness Neuro: Oriented X 3. No motor deficit. No sensory deficit.No cerebellar signs , cranial nerves II-XII intact Medications Administered Generic Name Dose Route Start Last Admin Trade Name Freq PRN Reason Stop Dose Admin Sodium Chloride 1,000 mls @ 999 mls/hr 12/14/23 02:06 12/14/23 02:11 Ns IV 12/14/23 03:06 999 mls/hr .Q1H1M ONE Administration Discontinued Medications Generic Name Dose Route Start Last Admin Trade Name Freq PRN Reason Stop Dose Admin Acetaminophen 650 mg 04/10/24 19:52 12/13/23 20:00 Acetaminophen 325 Mg Tablet PO 12/13/23 19:53 650 mg ONCE ONE Administration Sodium Chloride 1,000 mls @ 999 mls/hr 12/14/23 00:52 12/14/23 02:12 Ns IV 12/14/23 01:52 Infused .Q1H1M ONE Infusion Iohexol 85 ml 12/13/23 23:26 12/13/23 23:27 Iohexol 350 Mg/Ml 100 Ml Infus..Btl IV 12/13/23 23:27 85 ml ONCE ONE Administration Ketorolac Tromethamine 30 mg 12/13/23 22:44 12/13/23 22:51 Ketorolac Tromethamine 30 Mg/Ml Vial IVPUSH 12/13/23 22:45 30 mg ONCE ONE Administration Midodrine 5 mg 12/14/23 02:06 12/14/23 02:12 Midodrine Hcl 5 Mg Tablet PO 12/14/23 02:07 5 mg ONCE ONE Administration Morphine Sulfate 4 mg 12/13/23 19:52 12/13/23 20:00 Morphine Sulfate 4 Mg/Ml Cartridge IVPUSH 12/13/23 19:53 4 mg ONCE ONE Administration Protocol Ondansetron HCl 4 mg 12/13/23 19:52 12/13/23 20:00 Ondansetron Hcl 4 Mg/2 Ml Vial IVPUSH 12/13/23 19:53 4 mg ONCE ONE Administration Medical Decision Making Medical Decision Making MDM Narrative: Patient with fever tachycardia post RINVOQ for Crohn disease likely the cause as a side effect of the medication patient's WBC count and lactic acid levels are normal does not have any bacterial infection COVID flu influenza negative patient does not meet the criteria for bacterial sepsis Patient received IV fluids patient's blood pressure door drops after morphine which improved after IV fluids repeat blood pressure 99/53 patient feels hungry having food in the ER and taking p.o. fluids Patient's blood pressure fluctuating will give another L of fluid patient does not have any bacterial infection symptoms are from the medication side effects will give midodrine 5 mg patient received so far more than 30 cc/kilogram body weight IV fluids and had p.o. food in the ER Will re-evaluate the patient after IV fluids Differential Diagnosis Differential Diagnoses: The differential diagnosis associated with the presentation includes Bacterial infection/viral infection/medication side effect Admission/Observation Consideration of admission/observation: Escalation of care including admission/observation considered Lab Data MDM Lab Attestation statement: I reviewed the patient's lab results. 12/13/23 20:33 12/13/23 20:33 Labs: Lab Results 12/13/23 12/13/23 Range/Units 20:33 22:54 WBC 10.9 H (4.8-10.8) X10*3/uL RBC 3.52 L (4.20-5.50) X10*6/uL Hgb 10.7 L (12.0-16.0) g/dl Hct 31.2 L (37.0-47.0) % MCV 88.6 (80.0-98.0) fL MCH 30.4 (27.0-33.0) pg MCHC 34.3 (31.0-35.0) g/dl RDW 15.0 (11.0-16.0) % Plt Count 414 H D (160-400) X10*3/uL MPV 9.0 L (9.4-12.3) fL Immature Gran % (Auto) 0.2 (0.0-0.4) % Neut % (Auto) 50.8 (45-73) % Lymph % (Auto) 41.7 H (20-40) % [place] % (Auto) 6.4 (2-11) % Eos % (Auto) 0.4 (0-4) % Baso % (Auto) 0.5 (0-2) % Lymph # (Auto) 4.5 (1.2-4.9) X10*3/uL [place] # (Auto) 0.7 (0.1-1.2) X10*3/uL Eos # (Auto) 0.0 (0.0-0.4) X10*3/uL Baso # (Auto) 0.1 (0.0-0.2) X10*3/uL Abs Immat Gran (auto) 0.02 (0.00-0.03) X10*3/uL Absolute Neuts (auto) 5.5 (2.0-8.3) x10*3/uL Absolute Nucleated RBC 0.000 (0.0-0.012) X10*3/uL Nucleated RBC % (auto) 0.0 (0.0-0.2) /100WBC Sodium 135 (135-145) mmol/L Potassium 4.2 (3.3-5.1) mmol/L Chloride 105 (96-108) mmol/L Carbon Dioxide 23 (22-29) mmol/L Anion Gap 11 L (12-20) BUN 21 H (9-16) mg/dL Creatinine 0.66 (0.5-1.4) mg/dL Estim Creat Clear Calc 90.0 Estimated GFR > 60 Random Glucose 115 (60-115) mg/dL Lactic Acid 0.9 (0.5-2.0) mmol/L Calcium 8.4 D (8.4-10.2) mg/dL Total Bilirubin 0.2 (0.0-1.0) mg/dL AST 9 (5-31) U/L ALT 9 (0-31) U/L Alkaline Phosphatase 61 (39-117) U/L Total Protein 6.1 L (6.5-8.0) g/dL Albumin 3.4 L (3.5-5.0) g/dL Urine Color Yellow Urine Appearance Clear Urine pH 6.0 (5.0-9.0) Ur Specific [place] >= 1.030 H (1.005-1.025) Urine Protein Trace (Neg-Trace) mg/dL Urine Glucose (UA) Negative (Negative) mg/dL Urine Ketones 15 (Negative) mg/dL Urine Blood Negative (Negative) Urine Nitrite Negative (Negative) Ur Leukocyte Esterase Negative (Negative) Urine Test NEGATIVE (NEGATIVE) Influenza Type A (PCR) NEGATIVE (Negative) Influenza Type B (PCR) NEGATIVE (Negative) RSV RNA Qual (PCR) NEGATIVE (Negative) SARS-CoV-2 RNA (RT-PCR) NEGATIVE (Negative) Independent Interpretation I performed an independent interpretation of an: EKG Interpretation: Normal sinus rhythm heart rate 88 beats per minute normal intervals normal axis no acute ST-T changes no acute ischemia Radiology Impression Discussion of test interpretation with radiology: I have reviewed the radiologist's reading. Discharge Plan Discharge Clinical Impression: Medication side effects, Fever Patient Disposition: Home, Self-Care Instructions: Fever in Adults (ED), Adverse Drug Reaction (ED) Additional Instructions: Drink plenty of fluids Tylenol/Motrin for fever Your symptoms likely from side effect of RINVOQ for Crohn's disease which should get better with time for now hold the medication and discuss the case with paste thinner Prescriptions: No Action acetaminophen 325 mg Tablet 650 mg PO QID PRN (Reason: Pain) cyanocobalamin (vitamin B-12) 1,000 mcg Tablet 1,000 mcg PO DAILY Vitamin C 100 mg Tablet 100 mg PO DAILY cholecalciferol (vitamin D3) [Vitamin D3] 10 mcg (400 unit) Tablet 10 mcg PO DAILY Humira 40 mg/0.8 mL Syringe Kit 40 mg SUBCUT Q2W ondansetron 4 mg tablet,disintegrating 4 mg PO Q8H PRN (Reason: nausea and vomiting) Qty: 12 0RF prednisone 20 mg Tablet 40 mg PO DAILY 20 Days Qty: 40 0RF multivit with min-folic acid [Multivitamin Gummies] 200 mcg Tablet,Chewable 2 tab PO DAILY Print Language: Indonesian
[2023-12-13] MEDS: Morphine Sulfate 4 MG/ML CARTRIDGE IVPUSH (20:00)
[2023-12-13] MEDS: Acetaminophen 325 MG TABLET 650 MG PO (20:00)
[2023-12-13] MEDS: ondansetron HCL 4 MG/2 ML VIAL IVPUSH (20:00)
[2023-12-13 20:44] LABS: MANUAL DIFF FLAG NO
--- NOTE | 2023-12-13 21:00 | PC.NURSE ---
dr lowe aware of oral temp of 102.5 pt medicated according to mar iv placed in R Ac 20g pt tolerated well lights dimmed to promote rest
[2023-12-13 21:01] LABS: Lactic Acid 0.9 mmol/L (0.5-2.0)
[2023-12-13 21:06] LABS: Alanine Aminotransferase 9 U/L (0-31); Albumin Level 3.4 g/dL (3.5-5.0); Alkaline Phosphatase 61 U/L (39-117); Anion Gap 11 (12-20); Aspartate Amino Transferase 9 U/L (5-31); Bilirubin Total 0.2 mg/dL (0.0-1.0); Blood Urea Nitrogen 21 mg/dL (9-16); Calcium 8.4 mg/dL (8.4-10.2); Carbon Dioxide 23 mmol/L (22-29); Chloride 105 mmol/L (96-108); Estimated Glomerular Filt Rate > 60; Glucose Random 115 mg/dL (60-115); Potassium 4.2 mmol/L (3.3-5.1); Sodium 135 mmol/L (135-145); Total Protein 6.1 g/dL (6.5-8.0)
[2023-12-13 21:13] LABS: Basophils Absolute Auto 0.1 X10*3/uL (0.0-0.2); Basophils Percent Auto 0.5 % (0-2); Eosinophils Percent Auto 0.4 % (0-4); Hematocrit 31.2 % (37.0-47.0); Hemoglobin 10.7 g/dl (12.0-16.0); Imm Gran Abs Auto 0.02 X10*3/uL (0.00-0.03); Imm Gran Pct Auto 0.2 % (0.0-0.4); Lymphocytes Absolute Auto 4.5 X10*3/uL (1.2-4.9); Lymphocytes Percent Auto 41.7 % (20-40); Mean Corpuscular HGB Conc 34.3 g/dl (31.0-35.0); Mean Corpuscular Hemoglobin 30.4 pg (27.0-33.0); Mean Corpuscular Volume 88.6 fL (80.0-98.0); Monocytes Absolute Auto 0.7 X10*3/uL (0.1-1.2); Monocytes Percent Auto 6.4 % (2-11); Neutrophils Absolute Auto 5.5 x10*3/uL (2.0-8.3); Neutrophils Percent Auto 50.8 % (45-73); Platelet Count 414 X10*3/uL (160-400); Red Blood Count 3.52 X10*6/uL (4.20-5.50); White Blood Count 10.9 X10*3/uL (4.8-10.8)
[2023-12-13 21:20] VITALS: TEMP 37.4
[2023-12-13 21:27] LABS: Influenza A PCR NEGATIVE (Negative); Influenza B PCR NEGATIVE (Negative); Resp Syncy Virus RNA Qual PCR NEGATIVE (Negative); SARS COV2 PCR INHOUSE NEGATIVE (Negative)
[2023-12-13 22:00] VITALS: BP 92/56; PULSE 81; RESP 15; TEMP 36.9; O2SAT 97
[2023-12-13] MEDS: Ketorolac Tromethamine 30 MG/ML VIAL IVPUSH (22:51)
[2023-12-13 23:05] LABS: Appearance Urine Clear; Color Urine Yellow; Glucose Urine UA Negative (Negative); Leukocyte Esterase Urine Negative (Negative); Nitrite Urine Negative (Negative); Specific Gravity - Urine >= 1.030 (1.005-1.025); Urine Blood Negative (Negative); Urine Ketones 15 mg/dL (Negative); Urine Protein Trace mg/dL (Neg-Trace)
[2023-12-13 23:07] LABS: UPreg QC Valid YES; Urine Pregnancy NEGATIVE (NEGATIVE)
[2023-12-13] MEDS: iohexoL 350 MG/ML 100 ML INFUS..BTL 85 ML IV (23:27)
[2023-12-14] VITALS (15 sets, daily range): BP systolic 85–138; BP diastolic 29–57; PULSE 64–105; RESP 12–20; TEMP 36–38.6; O2SAT 96–100
--- NOTE | 2023-12-14 00:47 | PC.NURSE ---
assumed care of pt [id number]. vitals as documented. dr. lowe aware.
[2023-12-14] MEDS: 0.9 % Sodium Chloride 1,000 ML 999 ML IV ×2 (01:00→02:11)
[2023-12-14] MEDS: Midodrine HCl 5 MG TABLET PO (02:12)
--- NOTE | 2023-12-14 02:15 | PC.NURSE ---
Addendum entered by Luca Cruz 12/14/23 02:17: 0100. late entry. Original Note: R. AC IV infiltrated. IV removed hot pack placed on area. new iv established L. AC. iv normal saline bolus infusing. pt reports 10 R. lower back/hip pain with no radiation, hx sciatica flares. Dr. Tanner made aware. pt helped to reposition to L. side per pt request. heat pack given to apply to area. bp low however pt denies dizziness/visual changes/n/v at this time. call jackson within reach.
--- NOTE | 2023-12-14 02:17 | PC.NURSE ---
bp remains low. pt medicated per mar. ivf infusing. pt positioned in trendelenberg per Dr. Tanner. pt remains asymptomatic. call jackson within reach.
[2023-12-14] MEDS: fentaNYL citrate/PF 100 MCG/2 ML VIAL IVPUSH (04:37)
[2023-12-14] MEDS: methylPREDNISolone Sod Succ 125 MG/2 ML VIAL 60 MG IVPUSH ×4 (04:38→23:47)
[2023-12-14] MEDS: Piperacillin Sodium/Tazobactam 4.5 GM in 0.9 % Sodium Chloride 100 ML IV (04:38)
--- NOTE | 2023-12-14 04:47 | PC.NURSE ---
Dr. Power to bedside to re eval pt. pt found immediate relief with fetanyl administration per nov. resting comfortably. pt medicated per nov, iv abx infusing. bp improved. labs drawn. continuous o2 monitoring and heart monitor. call jackson within reach.
[2023-12-14 05:07] LABS: C Reactive Protein 6.34 mg/dL (< or = 0.50)
[2023-12-14 05:24] LABS: Erythrocyte Sedimentation Rate 49 MM/HR (0-20)
--- NOTE | 2023-12-14 07:22 | PC.NURSE ---
pt is sleeping but easily arousable, skin appropriate for ethnicity, slightly warm to touch, respirations even and unlabored, ls clear, abd hyperactive bowel sounds in left lower quadrants, abd soft but tender in the lower quadrants, pt denies abd pain/nausea but is reporting a bad headache 10/10, ns on the monitor
[2023-12-14] MEDS: Acetaminophen 325 MG TABLET 650 MG PO (08:51)
--- NOTE | 2023-12-14 09:50 | PC.NURSE ---
pt reports sever pain in the right hip 10/10 but the headache improved, no headache at this time
--- NOTE | 2023-12-14 09:51 | PHA.MEDREC ---
Pharmacy Consult ? Medication Reconciliation Pharmacy has completed the medication reconciliation. Spoke to patient and confirmed medication list. Patient no longer takes Humira, switched to Rinvoq 45 mg daily (stared on 12/04/23) for 56 days.
--- NOTE | 2023-12-14 09:56 | MHC.EDTECH ---
Reposition the patient, changed the Herlinda and sheet because the pt was very sweetie.
--- NOTE | 2023-12-14 11:00 | P.HPHOSP_ITS ---
History of Present Illness Date of Service: 12/14/23 Attending physician on admission: Lisha Thompson Chief Complaint: crohn dis flare 40-year-old female with history of Crohn's disease, mood disorder presented to the ED earlier today for evaluation of abd pain ,diarrahae,also has diffuse body pains -she was in last month for Crohn's with acute flare and recurrent partial small-bowel obstruction. She was treated with IV fluids, IV opiates and IV steroids. went home with steriods ,was felling better then she was started onR invoq for Crohn disease on 12/04/2023 for last 3 days patient noticed fever body aches running nose on arrival patient's temperature of 102.5 degrees muscle complaining of diffuse abdominal pain with diarrhea( as per ed chart review). She denies any nausea or vomiting. Patient has body pains, also complaining of lot of right buttock and upper leg pain. Patient denies any weakness or numbness or any urinary incontinence. She has ongoing diarrhea, intermittent some bleeding, also has some abdominal pain. She denies any recent travel or antibiotic use or sick contacts. in ed :bp boderline , wbc 10.9 mild tachycardia ,has fever 101*f Lactic acid normal, blood cultures sent CMP unremarkable except for BUN of 21 with a normal creatinine of 0.66. COVID- 19, influenza and RSV negative. ct abd: Dilated mid to distal small bowel loops measuring up to 6 cm with mild thickening extending into a significant area of thickened mid to distal small bowel. The terminal small bowel is grossly within normal limits. The proximal small bowel is also within normal limits. The findings are consistent with the patient's history of Crohn's disease. A component of partial small bowel obstruction is a consideration. ct hip: 1. No acute fracture or dislocation. No evidence of avascular necrosis. 2. Minimal right hip osteoarthritis. 3. Partially visualized prominent degenerative disc disease at L5-S1, better evaluated on the recent CT abdomen/pelvis. ED course:d/d crohn flare vs psbo vs ( djd hip/spine)may be a side effect of Rinvoq. She was given fentanyl 100 mcg IV with good improvement of her pain. I treated the patient for possible Crohn's flare-up with Solu-Medrol 60 mg IV, Zosyn 4.5 g IV. ed d/w case with Gi recoemended admission for Crohn's flare-up with ? acute superimposed bacterial colitis with Solu-Medrol 60 mg IV, Zosyn 4.5 g IV Review of Systems 2 Review of Systems: Yes all other systems are reviewed and are negative [facility] Medical History Crohn disease Crohn's disease Depression Social History Household Members: Family Household Members Other:: grandmother Housing: House Do you presently have visiting nurse or other home services: No Alcohol intake: former Comment: pt refuses alarms Patient Tobacco Use Status: Former Tobacco user Quit Date: 3 days ago Tobacco use type: Cigarette Cigarette Packs Per Day: 0.5 Cigarettes Per Day: 2 Years Smoked: 34 e-Cigarette/Vaping Use: Currently Using Second Hand Smoke Exposure: No Use of substances other than those prescribed or required for medical reasons: No Advance Directives: Yes Advance Directives on File: Yes Advance Directives Date on File: 07/04/23 Patient : No service: No Meds Allergies Allergy/AdvReac Type Severity Reaction Status Date / Time No Known Allergies Allergy Verified 12/13/23 19:29 [No Known Allergies*] Active Medications: Current Medications Cyanocobalamin (Cyanocobalamin (Vitamin B-12) 1,000 Mcg Tablet) 1,000 mcg PO DAILY REPLACED BY [facility] Gabapentin (Gabapentin 100 Mg Capsule) 200 mg PO BID REPLACED BY [facility] Piperacillin Sod/Tazobactam (Sod 3.375 gm/ Sodium Chloride) 50 mls @ 100 mls/hr IV Q6H REPLACED BY [facility] Methylprednisolone Sodium Succinate (Methylprednisolone Sod Succ 125 Mg/2 Ml Vial) 60 mg IVPUSH Q6H REPLACED BY [facility] Non-Formulary Medication (Ascorbic Acid (Vitamin C) [Vitamin C]) 100 mg PO DAILY REPLACED BY [facility] Non-Formulary Medication (Calcium Carbonate [Calcium 600]) 600 mg PO DAILY REPLACED BY [facility] Oxycodone HCl (Oxycodone Hcl Immed Release 5 Mg Tablet) 10 mg PO Q6H PRN PRN Reason: Pain, Mild (Pain Scale 1-3) Sodium Chloride (0.9 % Sodium Chloride Flush 3 Ml Syringe) 3 ml IVFLUSH QSHIFT REPLACED BY [facility] Vitamin D (Cholecalciferol (Vitamin D3) 10 Mcg Tablet) 10 mcg PO DAILY [facility] Home Medications ?Medication ?Instructions ?Recorded ?Confirmed ?Last Taken ?Type acetaminophen 325 mg tablet 650 mg PO QID PRN Pain 11/01/23 12/14/23 Unknown History ascorbic acid (vitamin C) 100 mg 100 mg PO DAILY 11/01/23 12/14/23 12/13/23 History tablet (Vitamin C) cholecalciferol (vitamin D3) 10 10 mcg PO DAILY 11/01/23 12/14/23 12/13/23 History mcg (400 unit) tablet (Vitamin D3) cyanocobalamin (vitamin B-12) 1,000 mcg PO DAILY 11/01/23 12/14/23 12/13/23 History 1,000 mcg tablet calcium carbonate 600 mg calcium 600 mg PO DAILY 12/14/23 12/14/23 12/13/23 History (1,500 mg) tablet (Calcium) upadacitinib 45 mg tablet,extended 45 mg PO DAILY 12/14/23 12/14/23 12/13/23 History release 24 hr (Rinvoq) Physical Exam 2 Vital Signs and Narrative: Vital Signs: Last Vital Signs Temp 99.2 F 12/14/23 09:55 Pulse 84 12/14/23 09:55 Resp 14 12/14/23 09:55 BP 110/43 L 12/14/23 09:55 Pulse Ox 98 12/14/23 09:55 O2 Del Method Room Air 12/14/23 09:55 BMI result Body Mass Index 21.4 Appearance: Alert. Oriented X3. Mild distress. Febrile Eyes: No pallor or icterus ENT: Pharynx normal. Oral Mucosa moist. CVS: Tachycardic rrr,s1 heard. Respiratory: No respiratory distress. Equal air entry bilateral, no wheezing/rales/rhonchi Abdomen: Soft ,some diffuse tenderness , Bowel sounds are present, no mass palpable, no CVA tenderness right hip : pain in buttock area ,paraspinal muscles , no vissible spine deformity, rom intact. Skin: Skin warm and dry. Normal skin color. Normal skin turgor. Extremities: No lower extremity edema. No calf tenderness Neuro: Oriented X 3. No motor deficit. Results Labs 12/13/23 20:33 12/13/23 20:33 Labs: Laboratory Results - last 24 hr 04/10/24 04/10/24 04/11/24 20:33 22:54 04:45 MCV 88.6 MCH 30.4 MCHC 34.3 RDW 15.0 Plt Count 414 H D MPV 9.0 L Immature Gran % (Auto) 0.2 Neut % (Auto) 50.8 Lymph % (Auto) 41.7 H [place] % (Auto) 6.4 Eos % (Auto) 0.4 Baso % (Auto) 0.5 Lymph # (Auto) 4.5 [place] # (Auto) 0.7 Eos # (Auto) 0.0 Baso # (Auto) 0.1 Abs Immat Gran (auto) 0.02 Absolute Neuts (auto) 5.5 Absolute Nucleated RBC 0.000 Nucleated RBC % (auto) 0.0 ESR 49 H Anion Gap 11 L Estim Creat Clear Calc 90.0 Estimated GFR > 60 Random Glucose 115 Lactic Acid 0.9 2.0 Calcium 8.4 D Total Bilirubin 0.2 AST 9 ALT 9 Alkaline Phosphatase 61 C-Reactive Protein 6.34 H Total Protein 6.1 L Albumin 3.4 L Hold Red Top See Note Urine Color Yellow Urine Appearance Clear Urine pH 6.0 Ur Specific [place] >= 1.030 H Urine Protein Trace Urine Glucose (UA) Negative Urine Ketones 15 Urine Blood Negative Urine Nitrite Negative Ur Leukocyte Esterase Negative Urine Test NEGATIVE Influenza Type A (PCR) NEGATIVE Influenza Type B (PCR) NEGATIVE RSV RNA Qual (PCR) NEGATIVE SARS-CoV-2 RNA (RT-PCR) NEGATIVE Imaging Radiologist's Impressions: Impressions Chest X-Ray 12/13/23 23:30 IMPRESSION: Unremarkable examination. Abdomen/Pelvis CT 12/13/23 23:31 IMPRESSION: 1. Dilated mid to distal small bowel loops measuring up to 6 cm with mild thickening extending into a significant area of thickened mid to distal small bowel. The terminal small bowel is grossly within normal limits. The proximal small bowel is also within normal limits. The findings are consistent with the patient's history of Crohn's disease. A component of partial small bowel obstruction is a consideration. 2. Cholelithiasis. Fleischner guidelines were followed. Hip CT 12/14/23 08:45 IMPRESSION: 1. No acute fracture or dislocation. No evidence of avascular necrosis. 2. Minimal right hip osteoarthritis. 3. Partially visualized prominent degenerative disc disease at L5-S1, better evaluated on the recent CT abdomen/pelvis. Assessment and Plan (1) Acute Crohn's disease: Status: Acute (2) Acute pain of right hip: Status: Acute (3) Fever: Qualifiers: Fever type: unspecified Qualified Code(s): R50.9 - Fever, unspecified Status: Acute (4) SIRS (systemic inflammatory response syndrome): Status: Acute Plan 40 y/o F with crohn dis hx recently started on Rinvoq-came with diffuse pain - abd pain ,hip pain , fever ,diarrhae possible crohn dis flare vs ? rinvoq related vs superimprosed bacterial enteritis ct ab d: ? enteritis vs psbo patient also met sirs criteria -tachycardia and fevers . has mild leucocytosis blood cultures sent,cdiff ,Gi panel added started on iv solumedrol ,zosyn (12/14/23),pain control with oxycodone /gabapentine. clear liquid diet moniter cbc Gi and surgery eval hip pain : djd hip vs spine continue oxycodone /gabapentine ,avoid nsaid due to crohn flare dvt prophylax -mech devices. Patient will benefit from 2 midnight stays since patient has possible sepsis secondary to enteritis/Crohn's flare, P SBO: Need pain control, IV antibiotics, expert input for above. Above management discussed with the patient detail length she understand in agreement with the above plan, time spent 70 minute, patient full code. Quality Stroke Does the patient have a stroke diagnosis?: No VTE Prior VTE?: No VTE Risk Level:: Medical - moderate - high VTE Device Contraindication: N/A - Device Ordered VTE Drug Contraindication: N/A - Med Ordered
[2023-12-14] MEDS: Gabapentin 100 MG CAPSULE 200 MG PO ×2 (11:42→20:05)
[2023-12-14] MEDS: oxyCODONE HCl Immed Release 5 MG TABLET 10 MG PO ×4 (11:43→23:47)
[2023-12-14] MEDS: Piperacillin Sodium/Tazobactam 3.375 GM in 0.9 % Sodium Chloride 50 ML IV ×3 (11:43→23:47)
--- NOTE | 2023-12-14 16:34 | P.CONGS_ITS ---
History of Present Illness Consult details Consult date: 12/14/23 Narrative: 48-year-old female admitted for acute pain of the right hip. She is known to the Surgical Service for multiple admissions for partial small-bowel obstruction secondary to her Crohn's disease. Her last admission was about 3 weeks ago. She is being followed by the energy consultant service in [place] and had been switched to Rinvoq last December 03. She said that she came to the ER yesterday because of severe right hip pain which had been ongoing for about 3 days In view of her Crohn's disease, with question of sepsis on admission, a follow- up CT scan was done showing suggestion of active Crohn's disease, some segments with thickening of the small bowel wall, with flatus small bowel loops consistent with her disease. She says she she does have some abdominal pain although this is not severe compared to her episodes in the past. She is passing flatus and BMs. She has had no vomiting. Review of Systems 2 Constitutional: Constitutional: Reports chills, Denies fever(s) and Reports night sweats Cardiovascular: Cardiovascular: Denies chest pain Respiratory: Respiratory: Denies cough Gastrointestinal: Gastrointestinal: Denies melena and Denies vomiting Genitourinary: Genitourinary: Denies difficulty voiding Musculoskeletal: Musculoskeletal: Reports back pain PMFSH Past Medical History Medical History Crohn disease Crohn's disease Depression Social History Social History Household Members: Other Household Members Other:: father grandma Housing: House Do you presently have visiting nurse or other home services: No Alcohol intake: former Comment: pt refuses alarms Patient Tobacco Use Status: Former Tobacco user Quit Date: Tobacco use type: Cigarette Cigarette Packs Per Day: 0.5 Cigarettes Per Day: 2 Years Smoked: 34 e-Cigarette/Vaping Use: Currently Using Second Hand Smoke Exposure: No Advance Directives Date on File: 07/04/23 service: No Meds Allergies Allergy/AdvReac Type Severity Reaction Status Date / Time No Known Allergies Allergy Verified 12/13/23 19:29 [No Known Allergies*] Active Medications: Current Medications Cyanocobalamin (Cyanocobalamin (Vitamin B-12) 1,000 Mcg Tablet) 1,000 mcg PO DAILY [facility] Gabapentin (Gabapentin 100 Mg Capsule) 200 mg PO BID [facility] Last Admin: 12/14/23 11:42 Dose: 200 mg Piperacillin Sod/Tazobactam (Sod 3.375 gm/ Sodium Chloride) 50 mls @ 100 mls/hr IV Q6H [facility] Last Infusion: 12/14/23 14:00 Dose: Infused Methylprednisolone Sodium Succinate (Methylprednisolone Sod Succ 125 Mg/2 Ml Vial) 60 mg IVPUSH Q6H [facility] Last Admin: 12/14/23 11:42 Dose: 60 mg Oxycodone HCl (Oxycodone Hcl Immed Release 5 Mg Tablet) 10 mg PO Q6H PRN PRN Reason: Pain, Mild (Pain Scale 1-3) Last Admin: 12/14/23 11:43 Dose: 10 mg Sodium Chloride (0.9 % Sodium Chloride Flush 3 Ml Syringe) 3 ml IVFLUSH QSHIFT [facility] Vitamin D (Cholecalciferol (Vitamin D3) 10 Mcg Tablet) 10 mcg PO DAILY [facility] Home Medications ?Medication ?Instructions ?Recorded ?Confirmed ?Last Taken ?Type acetaminophen 325 mg tablet 650 mg PO QID PRN Pain 11/01/23 12/14/23 Unknown History ascorbic acid (vitamin C) 100 mg 100 mg PO DAILY 11/01/23 12/14/23 12/13/23 History tablet (Vitamin C) cholecalciferol (vitamin D3) 10 10 mcg PO DAILY 11/01/23 12/14/23 12/13/23 History mcg (400 unit) tablet (Vitamin D3) cyanocobalamin (vitamin B-12) 1,000 mcg PO DAILY 11/01/23 12/14/23 12/13/23 History 1,000 mcg tablet calcium carbonate 600 mg calcium 600 mg PO DAILY 12/14/23 12/14/23 12/13/23 History (1,500 mg) tablet (Calcium) upadacitinib 45 mg tablet,extended 45 mg PO DAILY 12/14/23 12/14/23 12/13/23 History release 24 hr (Rinvoq) Physical Exam 2 Vital Signs: Vital Signs: Last Vital Signs Temp 97.7 F 12/14/23 14:28 Pulse 69 12/14/23 14:28 Resp 15 12/14/23 14:28 BP 92/50 L 12/14/23 14:28 Pulse Ox 99 12/14/23 14:28 O2 Del Method Room Air 12/14/23 14:28 BMI result Body Mass Index 21.4 Const: Other: Says she is tender in the right hip General: comfortable and no acute distress Orientation/consciousness: p atient oriented x3 Neck: Neck: Yes no lymphadenopathy Resp: Auscultation: clear to auscultation bilaterally Cardio: Rhythm: regular rhythm GI: Palpation (GI): Soft to palpation, Tenderness to palpation present (GI) (Mild diffuse tenderness) and no guarding Neuro: General: patient oriented x3 Extrem: Other: Tender on the right hip area Results Labs 12/17/23 06:00 12/17/23 06:00 Labs: Abnormal lab results 12/13/23 12/13/23 12/14/23 Range/Units 20:33 22:54 04:45 WBC 10.9 H (4.8-10.8) X10*3/uL RBC 3.52 L (4.20-5.50) X10*6/uL Hgb 10.7 L (12.0-16.0) g/dl Hct 31.2 L (37.0-47.0) % Plt Count 414 H D (160-400) X10*3/uL MPV 9.0 L (9.4-12.3) fL Lymph % (Auto) 41.7 H (20-40) % ESR 49 H (0-20) MM/HR Anion Gap 11 L (12-20) BUN 21 H (9-16) mg/dL C-Reactive Protein 6.34 H (< or = 0.50) mg/dL Total Protein 6.1 L (6.5-8.0) g/dL Albumin 3.4 L (3.5-5.0) g/dL Ur Specific [place] >= 1.030 H (1.005-1.025) Short CBC 12/13/23 Range/Units 20:33 WBC 10.9 H (4.8-10.8) X10*3/uL Hgb 10.7 L (12.0-16.0) g/dl Hct 31.2 L (37.0-47.0) % Plt Count 414 H D (160-400) X10*3/uL BMP 12/13/23 20:33 Sodium 135 Potassium 4.2 Chloride 105 Carbon Dioxide 23 BUN 21 H Creatinine 0.66 Calcium 8.4 D Cardiac Enzymes 12/14/23 Range/Units 04:45 Total Creatine Kinase 37 (26-140) U/L Liver Function 12/13/23 Range/Units 20:33 Total Bilirubin 0.2 (0.0-1.0) mg/dL AST 9 (5-31) U/L ALT 9 (0-31) U/L Alkaline Phosphatase 61 (39-117) U/L Albumin 3.4 L (3.5-5.0) g/dL Urine 12/13/23 Range/Units 22:54 Urine Color Yellow Urine Appearance Clear Urine pH 6.0 (5.0-9.0) Ur Specific [place] >= 1.030 H (1.005-1.025) Urine Protein Trace (Neg-Trace) mg/dL Urine Glucose (UA) Negative (Negative) mg/dL Urine Test NEGATIVE (NEGATIVE) All other labs normal. Imaging Abdomen CT scan report/results: report reviewed CT scan - pelvis: report reviewed and image reviewed Assessment and Plan (1) Acute Crohn's disease: Status: Acute She has known active Crohn's disease. She says she actually came in because of right hip pain I have reviewed her CAT scan. Despite the finding of dilated small bowel loops, and thickening of some segments consistent with active Crohn's disease, this CT scan actually seems better than previous CT scans. Also clinically she does not seem to be obstructed. She has no vomiting at this time Abdominal exam remains very benign She can have clear liquids and this can be gradually advanced. She has been recently switched to Rinvoq by her neurologist in [place]. We can ask for follow-up from the energy consultant service as well with regards to possible side effects of this new medication. Procedures Date of Service Date of Service: 12/19/23
[2023-12-14] MEDS: 0.9 % Sodium Chloride Flush 3 ML SYRINGE IVFLUSH ×2 (16:45→23:48)
--- NOTE | 2023-12-14 18:34 | PM.EVENT ---
Event Note Date of Service: 12/14/23 Event Note: GI Consult-Full note dictated Imp: 48 yo female with small bowel Crohn's presenting with severe right hip/buttock/thigh pain, as well as some bloody diarrhea. She had been on 40mg prednisone after her recent hospitalization, but she started Rinvoq on 12/03 and stopped the steroids completely without any tapering regimen on approximately 12/05 under the directions of her GI provider, MARILEE Serrano, at [place]. She has not had any abdominal distention, N/V, nor abdominal pain. Her abdominal exam is presently benign. She has developed fevers, elevated CRP, mouth sores, and overall malaise since starting the Rinvoq and having stopped the prednisone abruptly. Her CT describes similar findings to her previous scans involving her small intestine, but she is nowhere near as symptomatic as previous admissions when was distended and had more clinical evidence of a SBO. There are no findings on her abdominal/pelvic CT nor hip CT that would account for her current symptoms. It appears that her main issue is that of the right hip pain. Her Crohn's, while active and significant, does not seem to be the main issue at the moment. Rec: R/O Avascular necrosis of right hip in relation to chronic steroids with MRI of hip. Continue IV steroids for the Crohn's and possible component of adrenal suppression given her abrupt stoppage of the prednisone last week. Hold Rinvoq for now.Check stool for C.diff. Follow fever curve. Her diet can be advanced tomorrow if her abdomen remains benign. If the Crohn's remains stable her steroids can be changed to po. Check repeat CBC in the AM 12. She will need close F/U by her primary GI provider after discharge. D/W patient. D/W Dr. Thompson. Thanks Time Spent With Patient Time: Total time managing care of this patient today ____ minutes.
[2023-12-14] MEDS: Cyclobenzaprine HCl 5 MG TABLET PO (20:05)
--- NOTE | 2023-12-14 23:47 | CONS_ITS ---
DATE OF SERVICE: 12/14/2023 REASON FOR CONSULTATION: Small bowel Crohn's disease and severe right hip pain. HISTORY OF PRESENT ILLNESS: The patient is a 48-year-old female, well known to me from her recent hospitalization in the middle of November. She does have a history of Crohn's disease diagnosed in 2021 and followed at [facility] by their GI Department with MARILEE Serrano, being her primary GI provider. She had been on Humira injections since early September, but the Humira level was low on her biweekly regimen when it was checked in November. The initial plan had been to increase the Humira to weekly dosing, but ultimately, it was decided to switch her to Rinvoq instead. Over the course of the past few months, she has been hospitalized here frequently and has been on both IV steroids while hospitalized and high-dose prednisone after discharge. Her most recent admission here was on November 17, and she was discharged on November 21. While here, she did have evidence of at least a partial small bowel obstruction with abdominal distention and abdominal pain with her CT scan showing similar findings to her previous scans with small bowel Crohn's and small bowel obstruction. She did improve on the IV steroids and was discharged on prednisone 40 mg daily on November 21. She was started on Rinvoq on December 03 according to the patient. She describes that her prednisone was completely stopped without any tapering on approximately December 05 under the guidance of the GI Department at [facility]. Over the past week or so, she has had progressive problems with feeling poorly, some diarrhea with bleeding, and the onset of severe pain in the area of the right hip, right buttock, and the right thigh. She was also having fevers at home and chills. Due mainly to the severe right hip pain, she came to the ER for evaluation. She actually denied any abdominal pain and was not having any abdominal distention nor vomiting. She had not been using any antibiotics recently at home nor NSAIDs. Since admission here, she has continued to have severe right hip and buttock pain just lying at rest and with any type of movement. It is also apparently tender to palpation. Since admission here, she has had no signs of bleeding. There has been no vomiting. MEDICATIONS: At home include the recent initiation of Rinvoq. Here in the hospital, she was started on IV Solu-Medrol 60 mg every 6 hours, Zofran p.r.n., oxycodone p.r.n., acetaminophen p.r.n., vitamin D, cyclobenzaprine, gabapentin, IV Zosyn. PAST MEDICAL HISTORY: Crohn's disease involving the small bowel diagnosed in 2021. She denies any history of diabetes, heart disease, stroke, or lung disease. She denies any significant surgeries. She has no other medical problems. SOCIAL HISTORY: She stopped smoking earlier this year. She does not use any alcohol. 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 She is a . FAMILY HISTORY: A cousin has Crohn's disease and her mother had colon cancer. REVIEW OF SYSTEMS: CONSTITUTIONAL: She has been feeling poorly at home with associated fevers and fatigue. CARDIAC: No chest pain. PULMONARY: No cough or hemoptysis. GI: As above. URINARY: No dysuria, no hematuria. NEUROLOGIC: No headache or seizures. PHYSICAL EXAMINATION: GENERAL: The patient is a pleasant, alert female. She is uncomfortable in relation to the right hip pain. SKIN: Warm and dry. Anicteric sclerae. Moist mucous membranes. NECK: Supple without lymphadenopathy. CHEST: Clear. CARDIAC: Normal S1, S2. ABDOMEN: Soft, nondistended, with normal bowel sounds. There is no focal mass, rebound, or guarding. EXTREMITIES: Without edema. She is very tender along the right hip area and the right buttock area. LABORATORY DATA: White blood cell count 10.9, hemoglobin 10.7, platelets 414,000 compared to 306,000 in November. Sedimentation rate is 49 compared to 7 in mid November. Normal electrolytes. BUN 21, creatinine 0.7. Normal LFTs. C-reactive protein is 6.3 compared to 1.45 in the middle of November. LFTs normal. Her urinalysis is negative other than a specific gravity of over 1.030. She was negative for influenza, RSV, and COVID. She did have a CT scan of the abdomen and pelvis in the ER describing the chronic changes in her small bowel with dilated small bowel loops extending into an area of thickening in the mid to distal small bowel. There was no sign of any definitive complete obstruction by any means on the CT scan. There were some gallstones. There was no sign of any intraabdominal fluid or abscess. She did have a CT scan of her right hip as well, which was negative for any fractures, dislocation, nor avascular necrosis. IMPRESSION: At this point, it appears that her main issue is that of the severe right hip pain as opposed to the underlying Crohn's disease. Clearly her CT scan is abnormal, but does not seem to be much different than her usual CT scan and at the present time, at least from a clinical standpoint, she is not having any significant active Crohn's given the benign abdomen and no sign of any obstruction. My main concern at this point is that of the severe right hip pain, elevated C-reactive protein, and her chronic use of prednisone. I would be most concerned about avascular necrosis despite the negative CT scan. I would also be concerned about the fact that she had been on fairly high doses of prednisone for quite some time off and on this entire year, and then most recently her prednisone was abruptly stopped. She did have some relative hypotension in the ER, and I do wonder if she has some component of adrenal insufficiency after the steroids were abruptly stopped as an outpatient last week. At this point, I would continue her steroids both for the Crohn's disease and to treat any component of adrenal insufficiency. If things are stable from a GI standpoint without any sign of abdominal distention or abdominal pain, then I think her diet can gradually be advanced. I have ordered a MRI of the right hip for more definitive evaluation of any avascular necrosis. I have also ordered a lumbar spine at the request of Dr. Thompson given her ongoing symptoms to rule out any type of vertebral compression fracture and/or pinched nerve causing her current severe pain. I would hold the Rinvoq for now. I would check a stool for C diff. I would follow her temperature curve. If the Crohn's remains stable, then I would change her steroids to p.o. prednisone within the next 24 to 48 hours as well. At this point, I would recommend close followup as an outpatient with her primary GI provider. Of note, I did speak with Jamal Flowers today regarding Nuvia's admission and the need for close followup and possible referral to a [facility] such as at [facility] or [facility]. This has all been discussed in detail with the patient and she is comfortable with this plan. MD JOSELYN Tsang/ROMEO / [phone] ISIAH
[2023-12-15] VITALS (8 sets, daily range): BP systolic 90–121; BP diastolic 53–58; PULSE 71–85; RESP 16–20; TEMP 36–36.3; O2SAT 96–99
[2023-12-15] MEDS: oxyCODONE HCl Immed Release 5 MG TABLET 10 MG PO ×2 (04:17→08:18)
[2023-12-15] MEDS: Piperacillin Sodium/Tazobactam 3.375 GM in 0.9 % Sodium Chloride 50 ML IV ×4 (04:18→22:49)
[2023-12-15] MEDS: methylPREDNISolone Sod Succ 125 MG/2 ML VIAL 60 MG IVPUSH ×3 (04:19→16:40)
[2023-12-15 05:44] LABS: MANUAL DIFF FLAG NO
[2023-12-15 05:57] LABS: Basophils Percent Auto 0.3 % (0-2); Hematocrit 30.1 % (37.0-47.0); Hemoglobin 10.3 g/dl (12.0-16.0); Imm Gran Abs Auto 0.03 X10*3/uL (0.00-0.03); Imm Gran Pct Auto 0.3 % (0.0-0.4); Lymphocytes Absolute Auto 1.6 X10*3/uL (1.2-4.9); Lymphocytes Percent Auto 18.4 % (20-40); Mean Corpuscular HGB Conc 34.2 g/dl (31.0-35.0); Mean Corpuscular Hemoglobin 30.3 pg (27.0-33.0); Mean Corpuscular Volume 88.5 fL (80.0-98.0); Monocytes Absolute Auto 0.2 X10*3/uL (0.1-1.2); Monocytes Percent Auto 2.2 % (2-11); Neutrophils Absolute Auto 6.8 x10*3/uL (2.0-8.3); Neutrophils Percent Auto 78.8 % (45-73); Platelet Count 388 X10*3/uL (160-400); Red Cell Distribution Width 14.9 % (11.0-16.0); White Blood Count 8.6 X10*3/uL (4.8-10.8)
[2023-12-15] MEDS: Cholecalciferol (Vitamin D3) 10 MCG TABLET PO (08:17)
[2023-12-15] MEDS: Cyclobenzaprine HCl 5 MG TABLET PO ×3 (08:17→20:41)
[2023-12-15] MEDS: Cyanocobalamin (Vitamin B-12) 1,000 MCG TABLET 1000 MCG PO (08:17)
[2023-12-15] MEDS: 0.9 % Sodium Chloride Flush 3 ML SYRINGE IVFLUSH ×3 (08:18→19:57)
[2023-12-15] MEDS: Gabapentin 100 MG CAPSULE 200 MG PO ×2 (08:18→20:42)
[2023-12-15] MEDS: Morphine Sulfate 4 MG/ML CARTRIDGE IVPUSH ×5 (09:43→23:23)
--- NOTE | 2023-12-15 11:35 | P.PNIM_ITS ---
Subjective Subjective Date of Service: 12/15/23 Interval History: denies abd pain or diarrhea last fever was 24h ago c/o severe hip and R buttock pain Review of Systems Review of Systems: Yes all other systems are reviewed and are negative Physical Exam 2 Vital Signs: Vital Signs: Last Vital Signs Temp 97.2 F 12/15/23 07:22 Pulse 85 12/15/23 07:22 Resp 19 12/15/23 09:43 BP 121/53 L 12/15/23 07:22 Pulse Ox 99 12/15/23 07:22 O2 Del Method Room Air 12/15/23 07:22 BMI result Body Mass Index 21.4 Gen: in pain HEENT: sclera anicteric, moist mucus membranes Neck: supple Lungs: clear to auscultation bilaterally Heart: regular rate and rhythm, no murmurs Abd: soft, non-tender, non-distended Ext: R hip exquisitely tender over greater trochanter, also tender R paralumbar area and upper buttock Skin: warm/well-perfused Neuro: alert and oriented x3, no focal findings Psych: appropriate affect Objective Data Active Medications Cyanocobalamin (Cyanocobalamin (Vitamin B-12) 1,000 Mcg Tablet) 1,000 mcg PO DAILY [facility] Last Admin: 12/15/23 08:17 Dose: 1,000 mcg Documented By: COTEMA Cyclobenzaprine HCl (Cyclobenzaprine Hcl 5 Mg Tablet) 5 mg PO TID [facility] Last Admin: 12/15/23 08:17 Dose: 5 mg Documented By: COTEMA Gabapentin (Gabapentin 100 Mg Capsule) 200 mg PO BID [facility] Last Admin: 12/15/23 08:18 Dose: 200 mg Documented By: COTEMA Piperacillin Sod/Tazobactam (Sod 3.375 gm/ Sodium Chloride) 50 mls @ 100 mls/hr IV Q6H [facility] Last Admin: 12/15/23 11:20 Dose: 100 mls/hr Documented By: COTEMA Methylprednisolone Sodium Succinate (Methylprednisolone Sod Succ 125 Mg/2 Ml Vial) 40 mg IVPUSH Q12H [facility] Morphine Sulfate (Morphine Sulfate 4 Mg/Ml Cartridge) 4 mg IVPUSH Q3H PRN; Protocol PRN Reason: severe pain Last Admin: 12/15/23 09:43 Dose: 4 mg Documented By: COTEMA Oxycodone HCl (Oxycodone Hcl Immed Release 5 Mg Tablet) 10 mg PO Q4H PRN PRN Reason: Pain, Mild (Pain Scale 1-3) Last Admin: 12/15/23 08:18 Dose: 10 mg Documented By: COTEMA Sodium Chloride (0.9 % Sodium Chloride Flush 3 Ml Syringe) 3 ml IVFLUSH QSHIFT [facility] Last Admin: 12/15/23 08:18 Dose: 3 ml Documented By: COTEMA Vitamin D (Cholecalciferol (Vitamin D3) 10 Mcg Tablet) 10 mcg PO DAILY [facility] Last Admin: 12/15/23 08:17 Dose: 10 mcg Documented By: COTEMA Labs 12/15/23 05:17 12/13/23 20:33 Labs: Laboratory Results - last 24 hr 12/14/23 12/15/23 04:45 05:17 MCV 88.5 MCH 30.3 MCHC 34.2 RDW 14.9 Plt Count 388 MPV 9.0 L Immature Gran % (Auto) 0.3 Neut % (Auto) 78.8 H Lymph % (Auto) 18.4 L Gregory % (Auto) 2.2 Eos % (Auto) 0.0 Baso % (Auto) 0.3 Lymph # (Auto) 1.6 Gregory # (Auto) 0.2 Eos # (Auto) 0.0 Baso # (Auto) 0.0 Abs Immat Gran (auto) 0.03 Absolute Neuts (auto) 6.8 Absolute Nucleated RBC 0.000 Nucleated RBC % (auto) 0.0 Total Creatine Kinase 37 Microbiology Microbiology Results: Microbiology 12/13/23 20:33 Blood Culture - Preliminary Blood - Venous No growth after 24 hours. 12/13/23 20:33 Blood Culture - Preliminary Blood - Venous No growth after 24 hours. Assessment and Plan (1) SIRS (systemic inflammatory response syndrome): Status: Acute Plan d2 40yo F with Crohn's disease recently started on Rinvoq presenting with abd pain, R hip pain, fever, and diarrhea diarrhea and abd pain have resolved Crohn's disease ?enteritis - per Dr Auguste unlikely Crohn's flare or pSBO but recommend continuing steroids nicci to treat any component of adrenal insufficiency [steroids were abruptly stopped last week]. Change to PO prednisone over next 24-48h. - advance diet - check stool for Cdiff - pip/flavio d2 - CRP elevated- recheck in AM hip/buttock pain - no evidence of AVN - L5 radiculopathy? Consult Neurology - oxycodone + IV morphine, gabapentin VTE ppx - SCDs dispo - TBD, PT eval pending Total time managing care of this patient today: 35 minutes. Quality Stroke Does the patient have a stroke diagnosis?: No VTE Prior VTE?: No VTE Risk Level:: Medical - moderate - high VTE Device Contraindication: N/A - Device Ordered VTE Drug Contraindication: N/A - Med Ordered
--- NOTE | 2023-12-15 12:27 | PM.NEUROCN ---
History of Present Illness Data of Consult Service Date: 12/15/23 Primary Care Provider: Gwendolyn Luis MD HPI Reason for consult: Back pain 48 years old woman with Crohn's disease recently was exposed to Rinvoq. She said that she had multiple complications of that or side effects. She also complained of right-sided low back pain that was not particularly radiating. It was limiting her movements but there was some pain in midthoracic area 2. No change in bowel bladder pattern. Review of Systems Review of Systems: No recent fever or trauma PMFSH Past Medical History Medical History Crohn disease Crohn's disease Depression Social History Social History Household Members: Other Household Members Other:: father grandma Housing: House Do you presently have visiting nurse or other home services: No Alcohol intake: former Comment: pt refuses alarms Patient Tobacco Use Status: Former Tobacco user Quit Date: Tobacco use type: Cigarette Cigarette Packs Per Day: 0.5 Cigarettes Per Day: 2 Years Smoked: 34 e-Cigarette/Vaping Use: Currently Using Second Hand Smoke Exposure: No Advance Directives Date on File: 07/04/23 service: No Meds Allergies Allergy/AdvReac Type Severity Reaction Status Date / Time No Known Allergies Allergy Verified 12/13/23 19:29 [No Known Allergies*] Active Medications: Current Medications Cyanocobalamin (Cyanocobalamin (Vitamin B-12) 1,000 Mcg Tablet) 1,000 mcg PO DAILY [facility] [place] Last Admin: 12/15/23 08:17 Dose: 1,000 mcg Cyclobenzaprine HCl (Cyclobenzaprine Hcl 5 Mg Tablet) 5 mg PO TID [facility] Last Admin: 12/15/23 08:17 Dose: 5 mg Gabapentin (Gabapentin 100 Mg Capsule) 200 mg PO BID [facility] Last Admin: 12/15/23 08:18 Dose: 200 mg Piperacillin Sod/Tazobactam (Sod 3.375 gm/ Sodium Chloride) 50 mls @ 100 mls/hr IV Q6H [facility] Last Infusion: 12/15/23 11:59 Dose: Infused Methylprednisolone Sodium Succinate (Methylprednisolone Sod Succ 125 Mg/2 Ml Vial) 60 mg IVPUSH Q6H [facility] Last Admin: 12/15/23 11:59 Dose: 60 mg Morphine Sulfate (Morphine Sulfate 4 Mg/Ml Cartridge) 4 mg IVPUSH Q3H PRN; Protocol PRN Reason: severe pain Last Admin: 12/15/23 09:43 Dose: 4 mg Oxycodone HCl (Oxycodone Hcl Immed Release 5 Mg Tablet) 10 mg PO Q4H PRN PRN Reason: Pain, Mild (Pain Scale 1-3) Last Admin: 12/15/23 08:18 Dose: 10 mg Sodium Chloride (0.9 % Sodium Chloride Flush 3 Ml Syringe) 3 ml IVFLUSH QSHIFT [facility] [place] Last Admin: 12/15/23 08:18 Dose: 3 ml Vitamin D (Cholecalciferol (Vitamin D3) 10 Mcg Tablet) 10 mcg PO DAILY [facility] [place] Last Admin: 12/15/23 08:17 Dose: 10 mcg Home Medications ?Medication ?Instructions ?Recorded ?Confirmed ?Last Taken ?Type acetaminophen 325 mg tablet 650 mg PO QID PRN Pain 11/01/23 12/14/23 Unknown History ascorbic acid (vitamin C) 100 mg 100 mg PO DAILY 11/01/23 12/14/23 12/13/23 History tablet (Vitamin C) cholecalciferol (vitamin D3) 10 10 mcg PO DAILY 11/01/23 12/14/23 12/13/23 History mcg (400 unit) tablet (Vitamin D3) cyanocobalamin (vitamin B-12) 1,000 mcg PO DAILY 11/01/23 12/14/23 12/13/23 History 1,000 mcg tablet calcium carbonate 600 mg calcium 600 mg PO DAILY 12/14/23 12/14/23 12/13/23 History (1,500 mg) tablet (Calcium) upadacitinib 45 mg tablet,extended 45 mg PO DAILY 12/14/23 12/14/23 12/13/23 History release 24 hr (Rinvoq) Physical Exam Vital Signs: Vital Signs: Last Vital Signs Temp 97.2 F 12/15/23 07:22 Pulse 85 12/15/23 07:22 Resp 19 12/15/23 09:43 BP 121/53 L 12/15/23 07:22 Pulse Ox 99 12/15/23 07:22 O2 Del Method Room Air 12/15/23 07:22 BMI result Body Mass Index 21.4 Neuro: Other: Exam was limited due to pain. Foot and reflexes examination did not suggest any obvious root compression. She was alert and awake with normal spontaneity of speech fluency comprehension and affect. Results Labs 12/15/23 05:17 12/13/23 20:33 Labs: Short CBC 12/15/23 Range/Units 05:17 WBC 8.6 (4.8-10.8) X10*3/uL Hgb 10.3 L (12.0-16.0) g/dl Hct 30.1 L (37.0-47.0) % Plt Count 388 (160-400) X10*3/uL MRI of lumbosacral spine revealed moderate to severe L5-S1 spondylitic disease with mild bilateral foraminal narrowing and some facet arthropathy. There was no obvious disc herniation. Microbiology Microbiology Results: Microbiology 12/13/23 20:33 Blood - Venous Blood Culture - Preliminary No growth after 24 hours. 12/13/23 20:33 Blood - Venous Blood Culture - Preliminary No growth after 24 hours. Assessment and Plan (1) Low back pain: Qualifiers: Chronicity: acute Back pain laterality: right Sciatica presence: unspecified whether sciatica present Qualified Code(s): M54.50 - Low back pain, unspecified Status: Acute 48 years old woman with severe right-sided low back pain, which probably is due to spondylitic arthritic disease. Mainstay of management is non habit-forming pain medicine, heat, physical therapy, and maybe injection treatment for facet or L5-S1 area epidural space. Procedures Date of Service Date of Service: 12/15/23
--- NOTE | 2023-12-15 15:29 | MHC.CM.PN ---
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
--- NOTE | 2023-12-15 16:29 | PM.PNGS ---
Subjective Subjective Date of Service: 12/19/23 Interval history: Complains of right hip pain Says abdominal is ?okay? Tolerating diet Physical Exam Vital Signs: Vital Signs: Last Vital Signs Temp 96.8 F 12/15/23 15:06 Pulse 75 12/15/23 15:06 Resp 16 12/15/23 15:06 BP 99/54 L 12/15/23 15:40 Pulse Ox 96 12/15/23 15:06 O2 Del Method Room Air 12/15/23 15:06 BMI result Body Mass Index 21.4 Const: General: no acute distress Resp: Effort & Inspection: normal respiratory effort Cardio: Rate: regular rate GI: Other: Mild diffuse tenderness Palpation (GI): Soft to palpation Objective Data Active Medications Cyanocobalamin (Cyanocobalamin (Vitamin B-12) 1,000 Mcg Tablet) 1,000 mcg PO DAILY [facility] Last Admin: 12/15/23 08:17 Dose: 1,000 mcg Documented By: COTEMA Cyclobenzaprine HCl (Cyclobenzaprine Hcl 5 Mg Tablet) 5 mg PO TID [facility] Last Admin: 12/15/23 08:17 Dose: 5 mg Documented By: COTEMA Gabapentin (Gabapentin 100 Mg Capsule) 200 mg PO BID [facility] Last Admin: 12/15/23 08:18 Dose: 200 mg Documented By: COTEMA Piperacillin Sod/Tazobactam (Sod 3.375 gm/ Sodium Chloride) 50 mls @ 100 mls/hr IV Q6H [facility] Last Infusion: 12/15/23 11:59 Dose: Infused Documented By: COTEMA Methylprednisolone Sodium Succinate (Methylprednisolone Sod Succ 125 Mg/2 Ml Vial) 60 mg IVPUSH Q6H [facility] Last Admin: 12/15/23 11:59 Dose: 60 mg Documented By: COTEMA Morphine Sulfate (Morphine Sulfate 4 Mg/Ml Cartridge) 4 mg IVPUSH Q3H PRN; Protocol PRN Reason: severe pain Last Admin: 12/15/23 12:36 Dose: 4 mg Documented By: COTEMA Oxycodone HCl (Oxycodone Hcl Immed Release 5 Mg Tablet) 10 mg PO Q4H PRN PRN Reason: Pain, Mild (Pain Scale 1-3) Last Admin: 12/15/23 08:18 Dose: 10 mg Documented By: COTEMA Sodium Chloride (0.9 % Sodium Chloride Flush 3 Ml Syringe) 3 ml IVFLUSH QSHIFT [facility] Last Admin: 12/15/23 08:18 Dose: 3 ml Documented By: SHREYA Vitamin D (Cholecalciferol (Vitamin D3) 10 Mcg Tablet) 10 mcg PO DAILY [facility] Last Admin: 12/15/23 08:17 Dose: 10 mcg Documented By: SHREYA Labs 12/17/23 06:00 12/17/23 06:00 Labs: Laboratory Results - last 24 hr 12/15/23 05:17 MCV 88.5 MCH 30.3 MCHC 34.2 RDW 14.9 Plt Count 388 MPV 9.0 L Immature Gran % (Auto) 0.3 Neut % (Auto) 78.8 H Lymph % (Auto) 18.4 L Mccone % (Auto) 2.2 Eos % (Auto) 0.0 Baso % (Auto) 0.3 Lymph # (Auto) 1.6 Mccone # (Auto) 0.2 Eos # (Auto) 0.0 Baso # (Auto) 0.0 Abs Immat Gran (auto) 0.03 Absolute Neuts (auto) 6.8 Absolute Nucleated RBC 0.000 Nucleated RBC % (auto) 0.0 Microbiology Microbiology Results: Microbiology 12/13/23 20:33 Blood Culture - Preliminary Blood - Venous No growth after 24 hours. 12/13/23 20:33 Blood Culture - Preliminary Blood - Venous No growth after 24 hours. Procedures Date of Service Date of Service: 12/19/23 Progress Note: A&P Assessment and plan (1) Acute Crohn's disease: Status: Acute Assessment and Plan: Currently says abdomen is not bothering her Main complaint is her right hip GI following for Crohn's disease Clinically not obstructed at this time On new Crohn's medication - Rinvoq Time Spent With Patient Time: Total time managing care of this patient today ____ minutes. Quality Stroke Does the patient have a stroke diagnosis?: No VTE Prior VTE?: No VTE Risk Level:: Medical - moderate - high VTE Device Contraindication: N/A - Device Ordered VTE Drug Contraindication: N/A - Med Ordered
--- NOTE | 2023-12-15 22:59 | P.PNGI_ITS ---
Subjective Subjective Date of Service: 12/15/23 Interval History: Her only complaint is that of her right hip/buttock pain. She is tolerating her diet and denies N/V, diarrhea, fevers, bleeding, and abdominal pain. Critical Care Time (minutes): 0 Physical Exam 2 Vital Signs: Vital Signs: Last Vital Signs Temp 97.2 F 12/15/23 19:51 Pulse 80 12/15/23 19:51 Resp 17 12/15/23 19:51 BP 101/58 L 12/15/23 19:51 Pulse Ox 97 12/15/23 19:51 O2 Del Method Room Air 12/15/23 19:51 BMI result Body Mass Index 21.4 Const: General: cooperative, healthy appearing, comfortable, no acute distress, well developed, alert and awake GI: Other: Abdomen-+BS, soft, NT, without mass Objective Data Labs 12/15/23 05:17 12/13/23 20:33 Labs: Laboratory Results - last 24 hr 12/15/23 05:17 WBC 8.6 RBC 3.40 L Hgb 10.3 L Hct 30.1 L MCV 88.5 MCH 30.3 MCHC 34.2 RDW 14.9 Plt Count 388 MPV 9.0 L Immature Gran % (Auto) 0.3 Neut % (Auto) 78.8 H Lymph % (Auto) 18.4 L Calhoun % (Auto) 2.2 Eos % (Auto) 0.0 Baso % (Auto) 0.3 Lymph # (Auto) 1.6 Calhoun # (Auto) 0.2 Eos # (Auto) 0.0 Baso # (Auto) 0.0 Abs Immat Gran (auto) 0.03 Absolute Neuts (auto) 6.8 Absolute Nucleated RBC 0.000 Nucleated RBC % (auto) 0.0 Microbiology Microbiology Results: Microbiology 12/13/23 20:33 Blood - Venous Blood Culture - Preliminary No growth after 48 hours. 12/13/23 20:33 Blood - Venous Blood Culture - Preliminary No growth after 48 hours. Procedures Date of Service Date of Service: 12/15/23 Progress Note: A&P Assessment and plan (1) Crohns disease of small intestine: Status: Acute Assessment and Plan: Imp: Her Crohn's disease seems stable at the present time. There is no evidence for an obstruction nor any intraabdominal infection, Rec: Change to oral prednisone tomorrow at 40mg daily for 1 week, and then a 5mg/week taper. I advised her to be sure to do the complete prednisone taper and to F/U with her primary GI provider regarding her Rinvoq. D/W patient in detail and she is comfortable with this plan. Thanks Time Spent With Patient Time: Total time managing care of this patient today ____ minutes. Quality Stroke Does the patient have a stroke diagnosis?: No VTE Prior VTE?: No VTE Risk Level:: Medical - moderate - high VTE Device Contraindication: N/A - Device Ordered VTE Drug Contraindication: N/A - Med Ordered
[2023-12-16 03:35] VITALS: BP 89/52; PULSE 69; RESP 16; TEMP 36.1; O2SAT 98
[2023-12-16] MEDS: Piperacillin Sodium/Tazobactam 3.375 GM in 0.9 % Sodium Chloride 50 ML IV ×4 (05:00→22:39)
[2023-12-16 06:26] LABS: Hematocrit 30.1 % (37.0-47.0); Hemoglobin 9.9 g/dl (12.0-16.0); Mean Corpuscular HGB Conc 32.9 g/dl (31.0-35.0); Mean Corpuscular Hemoglobin 29.6 pg (27.0-33.0); Mean Corpuscular Volume 89.9 fL (80.0-98.0); Platelet Count 419 X10*3/uL (160-400); Red Blood Count 3.35 X10*6/uL (4.20-5.50); Red Cell Distribution Width 15.6 % (11.0-16.0); White Blood Count 10.5 X10*3/uL (4.8-10.8)
[2023-12-16 06:37] LABS: Anion Gap 10 (12-20); Blood Urea Nitrogen 17 mg/dL (9-16); C Reactive Protein 2.61 mg/dL (< or = 0.50); Calcium 8.6 mg/dL (8.4-10.2); Carbon Dioxide 24 mmol/L (22-29); Chloride 109 mmol/L (96-108); Creatinine Clr Calc Pharmacy 95.8; Estimated Glomerular Filt Rate > 60; Glucose Random 158 mg/dL (60-115); Potassium 4.1 mmol/L (3.3-5.1); Sodium 139 mmol/L (135-145)
[2023-12-16 07:02] VITALS: BP 101/57; PULSE 64; RESP 16; TEMP 36.5; O2SAT 95
[2023-12-16] MEDS: Morphine Sulfate 4 MG/ML CARTRIDGE IVPUSH ×3 (08:11→19:50)
[2023-12-16] MEDS: 0.9 % Sodium Chloride Flush 3 ML SYRINGE IVFLUSH ×3 (08:12→23:11)
[2023-12-16] MEDS: Cholecalciferol (Vitamin D3) 10 MCG TABLET PO (08:12)
[2023-12-16] MEDS: Gabapentin 100 MG CAPSULE 200 MG PO ×2 (08:12→20:31)
[2023-12-16] MEDS: predniSONE 20 MG TABLET 40 MG PO (08:12)
[2023-12-16] MEDS: Cyanocobalamin (Vitamin B-12) 1,000 MCG TABLET 1000 MCG PO (08:12)
[2023-12-16] MEDS: Cyclobenzaprine HCl 5 MG TABLET PO ×3 (08:12→20:30)
--- NOTE | 2023-12-16 12:58 | P.PNIM_ITS ---
Subjective Subjective Date of Service: 12/16/23 Interval History: Slowly improving. Advancing diet as tolerated. Review of Systems Denies chest pain Denies shortness of breath Denies nausea vomiting diarrhea Admits to abdominal pain that is improving Denies fever chills Physical Exam 2 Vital Signs: Vital Signs: Last Vital Signs Temp 97.7 F 12/16/23 07:02 Pulse 64 12/16/23 07:02 Resp 16 12/16/23 07:02 BP 101/57 L 12/16/23 07:02 Pulse Ox 95 12/16/23 07:02 O2 Del Method Room Air 12/16/23 07:02 BMI result Body Mass Index 21.4 Const: Other: Awake alert uncomfortable appearing Resp: Other: Clear to auscultation bilaterally no rales rhonchi or wheezes Cardio: Other: No S4; positive S1-S2; no S3 murmurs rubs or gallops GI: Other: Soft mildly tender diffusely with positive bowel sounds Extrem: Other: No edema bilaterally Objective Data Active Medications Cyanocobalamin (Cyanocobalamin (Vitamin B-12) 1,000 Mcg Tablet) 1,000 mcg PO DAILY [facility] Last Admin: 12/16/23 08:12 Dose: 1,000 mcg Documented By: LEDY Cyclobenzaprine HCl (Cyclobenzaprine Hcl 5 Mg Tablet) 5 mg PO TID [facility] Last Admin: 12/16/23 08:12 Dose: 5 mg Documented By: LEDY Gabapentin (Gabapentin 100 Mg Capsule) 200 mg PO BID [facility] Last Admin: 12/16/23 08:12 Dose: 200 mg Documented By: LEDY Piperacillin Sod/Tazobactam (Sod 3.375 gm/ Sodium Chloride) 50 mls @ 100 mls/hr IV Q6H [facility] Last Infusion: 12/16/23 12:05 Dose: Infused Documented By: LEDY Morphine Sulfate (Morphine Sulfate 4 Mg/Ml Cartridge) 4 mg IVPUSH Q3H PRN; Protocol PRN Reason: severe pain Last Admin: 12/16/23 08:11 Dose: 4 mg Documented By: LEDY Oxycodone HCl (Oxycodone Hcl Immed Release 5 Mg Tablet) 10 mg PO Q4H PRN PRN Reason: Pain, Mild (Pain Scale 1-3) Last Admin: 12/15/23 08:18 Dose: 10 mg Documented By: COTEMA Prednisone (Prednisone 20 Mg Tablet) 40 mg PO DAILY [facility] Last Admin: 12/16/23 08:12 Dose: 40 mg Documented By: BRORaul Sodium Chloride (0.9 % Sodium Chloride Flush 3 Ml Syringe) 3 ml IVFLUSH QSHIFT [facility] Last Admin: 12/16/23 08:12 Dose: 3 ml Documented By: LEDY Vitamin D (Cholecalciferol (Vitamin D3) 10 Mcg Tablet) 10 mcg PO DAILY [facility] Last Admin: 12/16/23 08:12 Dose: 10 mcg Documented By: BROB Labs 12/16/23 06:12 12/16/23 06:12 Labs: Laboratory Results - last 24 hr 12/16/23 06:12 MCV 89.9 MCH 29.6 MCHC 32.9 RDW 15.6 Plt Count 419 H MPV 9.0 L Absolute Nucleated RBC 0.000 Nucleated RBC % (auto) 0.0 Anion Gap 10 L Estim Creat Clear Calc 95.8 Estimated GFR > 60 Random Glucose 158 H Calcium 8.6 C-Reactive Protein 2.61 H Microbiology Microbiology Results: Microbiology 12/13/23 20:33 Blood Culture - Preliminary Blood - Venous No growth after 48 hours. 12/13/23 20:33 Blood Culture - Preliminary Blood - Venous No growth after 48 hours. Assessment and Plan (1) Crohns disease of small intestine: Status: Acute (2) Low back pain: Status: Acute Plan 40yo F with Crohn's disease recently started on Rinvoq presenting with abd pain, R hip pain, fever, and diarrhea; diarrhea and abd pain slowly responding to therapies 1.Crohn's disease - per Dr Auguste unlikely Crohn's flare or pSBO but recommend continuing steroids nicci to treat any component of adrenal insufficiency [steroids were abruptly stopped last week]. Change to PO prednisone over next 24-48h. - advance diet as tolerated - check stool for Cdiff - Zosyn (3) 2.Hip/buttock pain - conservative at this time -appreciate neuro input VTE ppx - SCDs Requires ongoing hospitalization to treat abdominal pain/adrenal insufficiency with IV steroids and pain medication. High risk for outpatient failure at this time Quality Stroke Does the patient have a stroke diagnosis?: No VTE Prior VTE?: No VTE Risk Level:: Medical - moderate - high VTE Device Contraindication: N/A - Device Ordered VTE Drug Contraindication: N/A - Med Ordered
--- NOTE | 2023-12-16 15:28 | P.PNGS_ITS ---
Subjective Subjective Date of Service: 12/16/23 Interval history: Patient is tolerating a diet. She is having some bowel habits. She has no abdominal issues or complaints at this time. Her main issues are right hip pain Physical Exam 2 Vital Signs: Vital Signs: Last Vital Signs Temp 97.7 F 12/16/23 07:02 Pulse 64 12/16/23 07:02 Resp 16 12/16/23 07:02 BP 101/57 L 12/16/23 07:02 Pulse Ox 95 12/16/23 07:02 O2 Del Method Room Air 12/16/23 07:02 BMI result Body Mass Index 21.4 GI: Other: Abdomen soft, benign, nontender, corpulent. Objective Data Active Medications Cyanocobalamin (Cyanocobalamin (Vitamin B-12) 1,000 Mcg Tablet) 1,000 mcg PO DAILY [facility] Last Admin: 12/16/23 08:12 Dose: 1,000 mcg Documented By: BROB Cyclobenzaprine HCl (Cyclobenzaprine Hcl 5 Mg Tablet) 5 mg PO TID [facility] Last Admin: 12/16/23 08:12 Dose: 5 mg Documented By: BROB Gabapentin (Gabapentin 100 Mg Capsule) 200 mg PO BID [facility] Last Admin: 12/16/23 08:12 Dose: 200 mg Documented By: LEDY Piperacillin Sod/Tazobactam (Sod 3.375 gm/ Sodium Chloride) 50 mls @ 100 mls/hr IV Q6H [facility] Last Infusion: 12/16/23 12:05 Dose: Infused Documented By: LEDY Morphine Sulfate (Morphine Sulfate 4 Mg/Ml Cartridge) 4 mg IVPUSH Q3H PRN; Protocol PRN Reason: severe pain Last Admin: 12/16/23 14:08 Dose: 4 mg Documented By: DOBROB Oxycodone HCl (Oxycodone Hcl Immed Release 5 Mg Tablet) 10 mg PO Q4H PRN PRN Reason: Pain, Mild (Pain Scale 1-3) Last Admin: 12/15/23 08:18 Dose: 10 mg Documented By: COTEMA Prednisone (Prednisone 20 Mg Tablet) 40 mg PO DAILY [facility] Last Admin: 12/16/23 08:12 Dose: 40 mg Documented By: DOBROB Sodium Chloride (0.9 % Sodium Chloride Flush 3 Ml Syringe) 3 ml IVFLUSH QSHIFT [facility] Last Admin: 12/16/23 08:12 Dose: 3 ml Documented By: LEDY Vitamin D (Cholecalciferol (Vitamin D3) 10 Mcg Tablet) 10 mcg PO DAILY [facility] Last Admin: 12/16/23 08:12 Dose: 10 mcg Documented By: LEDY Labs 12/16/23 06:12 12/16/23 06:12 Labs: Laboratory Results - last 24 hr 12/16/23 06:12 MCV 89.9 MCH 29.6 MCHC 32.9 RDW 15.6 Plt Count 419 H MPV 9.0 L Absolute Nucleated RBC 0.000 Nucleated RBC % (auto) 0.0 Anion Gap 10 L Estim Creat Clear Calc 95.8 Estimated GFR > 60 Random Glucose 158 H Calcium 8.6 C-Reactive Protein 2.61 H Microbiology Microbiology Results: Microbiology 12/13/23 20:33 Blood Culture - Preliminary Blood - Venous No growth after 48 hours. 12/13/23 20:33 Blood Culture - Preliminary Blood - Venous No growth after 48 hours. Procedures Date of Service Date of Service: 12/16/23 Progress Note: A&P Assessment and plan (1) Crohns disease of small intestine: Status: Acute (2) Acute pain of right hip: Status: Acute Plan No acute surgical issues at this time. Will follow up p.r.n.. Time Spent With Patient Time: Total time managing care of this patient today ____ minutes. Quality Stroke Does the patient have a stroke diagnosis?: No VTE Prior VTE?: No VTE Risk Level:: Medical - moderate - high VTE Device Contraindication: N/A - Device Ordered VTE Drug Contraindication: N/A - Med Ordered
[2023-12-16 15:32] VITALS: BP 100/55; PULSE 72; RESP 16; TEMP 36.3; O2SAT 96
[2023-12-16 19:28] VITALS: BP 99/57; PULSE 69; RESP 17; TEMP 36.3; O2SAT 98
[2023-12-16] MEDS: oxyCODONE HCl Immed Release 5 MG TABLET 10 MG PO (22:44)
[2023-12-16 23:59] VITALS: BP 102/82; PULSE 88; RESP 15; TEMP 37; O2SAT 99
[2023-12-17 00:03] VITALS: RESP 17
[2023-12-17] MEDS: Morphine Sulfate 4 MG/ML CARTRIDGE IVPUSH ×2 (00:03→08:40)
[2023-12-17 03:27] VITALS: BP 115/72; PULSE 71; RESP 18; TEMP 36.4; O2SAT 97
--- NOTE | 2023-12-17 04:00 | PC.NURSE ---
a&ox4. denies frequent stooling, denies loose stools overnight, no stool sample able to be obtained. pt pain managed well with prn IV morphine and PRN PO oxycodone. patient states this is effective. blood pressure is hypotensive, patient remains asymptomatic at this time. all needs met, call jackson within reach. safety and comfort maintained.
[2023-12-17] MEDS: oxyCODONE HCl Immed Release 5 MG TABLET 10 MG PO ×2 (05:06→11:31)
[2023-12-17] MEDS: Piperacillin Sodium/Tazobactam 3.375 GM in 0.9 % Sodium Chloride 50 ML IV ×2 (05:06→11:26)
[2023-12-17 07:15] LABS: Basophils Percent Auto 0.1 % (0-2); Eosinophils Percent Auto 0.1 % (0-4); Hemoglobin 9.5 g/dl (12.0-16.0); Imm Gran Abs Auto 0.04 X10*3/uL (0.00-0.03); Imm Gran Pct Auto 0.4 % (0.0-0.4); Lymphocytes Absolute Auto 4.1 X10*3/uL (1.2-4.9); Lymphocytes Percent Auto 39.2 % (20-40); MANUAL DIFF FLAG SCAN; Mean Corpuscular HGB Conc 32.8 g/dl (31.0-35.0); Mean Corpuscular Hemoglobin 29.8 pg (27.0-33.0); Mean Corpuscular Volume 90.9 fL (80.0-98.0); Mean Platelet Volume 9.3 fL (9.4-12.3); Monocytes Absolute Auto 0.6 X10*3/uL (0.1-1.2); Monocytes Percent Auto 5.4 % (2-11); Neutrophils Absolute Auto 5.7 x10*3/uL (2.0-8.3); Neutrophils Percent Auto 54.8 % (45-73); Platelet Count 427 X10*3/uL (160-400); Red Blood Count 3.19 X10*6/uL (4.20-5.50); Red Cell Distribution Width 15.4 % (11.0-16.0); SCAN SMEAR FLAG 1; White Blood Count 10.3 X10*3/uL (4.8-10.8)
[2023-12-17 07:35] VITALS: BP 129/71; PULSE 62; RESP 16; TEMP 36.6; O2SAT 99
[2023-12-17 07:37] LABS: SLIDE REVIEW VERIFIED
[2023-12-17 07:44] LABS: Alanine Aminotransferase 7 U/L (0-31); Albumin Level 2.8 g/dL (3.5-5.0); Alkaline Phosphatase 53 U/L (39-117); Anion Gap 9 (12-20); Aspartate Amino Transferase 7 U/L (5-31); Bilirubin Total 0.2 mg/dL (0.0-1.0); Blood Urea Nitrogen 14 mg/dL (9-16); Calcium 8.3 mg/dL (8.4-10.2); Carbon Dioxide 27 mmol/L (22-29); Chloride 109 mmol/L (96-108); Creatinine Clr Calc Pharmacy 94.3; Estimated Glomerular Filt Rate > 60; Glucose Fasting 89 mg/dL (60-99); Sodium 141 mmol/L (135-145); Total Protein 5.3 g/dL (6.5-8.0)
[2023-12-17] MEDS: predniSONE 20 MG TABLET 40 MG PO (08:39)
[2023-12-17] MEDS: Gabapentin 100 MG CAPSULE 200 MG PO (08:39)
[2023-12-17] MEDS: Cyclobenzaprine HCl 5 MG TABLET PO (08:39)
[2023-12-17] MEDS: Cyanocobalamin (Vitamin B-12) 1,000 MCG TABLET 1000 MCG PO (08:40)
[2023-12-17] MEDS: Cholecalciferol (Vitamin D3) 10 MCG TABLET PO (08:40)
[2023-12-17] MEDS: 0.9 % Sodium Chloride Flush 3 ML SYRINGE IVFLUSH (08:40)
--- NOTE | 2023-12-17 11:20 | P.DS_ITS ---
DS: Providers Provider Date of Service: 12/17/23 Date of admission: 12/14/23 10:50 Date of discharge: 12/17/23 Primary care physician: Gwendolyn Luis MD Consults: 12/14/23 07:52 Consult to Gastroenterology Stat Consulting Provider: Lukasz Auguste Reason for consultation: Abdominal pain, abdominal distension, right hip pain, Crohn's flare-up Has provider been notified: Yes 12/14/23 10:57 Consult to Gastroenterology Routine Consulting Provider: Lukasz Auguste Reason for consultation: crohn flare Has provider been notified: No 12/14/23 11:02 Consult to General Surgery Routine Consulting Provider: [facility] Reason for consultation: ? psbo on ct abd Has provider been notified: No 12/14/23 17:31 Consult to Neurology Routine Consulting Provider: [facility] Reason for consultation: spondyloarthropathy and has sciatica type pain per Dr Thompson DS: Diagnosis Discharge Diagnosis (1) Crohns disease of small intestine: Status: Acute (2) Acute pain of right hip: Status: Acute DS: Summary Hospital Course Hospital Course: 40-year-old female with history of Crohn's disease, mood disorder presented to the ED earlier today for evaluation of abd pain ,diarrahae,also has diffuse body pains -she was in last month for Crohn's with acute flare and recurrent partial small-bowel obstruction. She was treated with IV fluids, IV opiates and IV steroids. went home with steriods ,was felling better then she was started on Rinvoq for Crohn disease on 12/04/2023 for last 3 days patient noticed fever body aches running nose on arrival patient's temperature of 102.5 degrees muscle complaining of diffuse abdominal pain with diarrhea( as per ed chart review). Hospitalist course Was admitted to general medical floor and started on Zosyn. GI consult was obtained. Was advised IV steroids and imaging to rule out AVN right hip. MRI of LS spine failed to demonstrate any acute pathologies; did show some mild tendinitis of the gluteal region. LS spine was unremarkable. Patient was maintained on IV methylprednisolone and Zosyn but her pain did not change. At no time during her hospitalization did she complain of abdominal pain but rather right hip pain. Day of discharge, exam was focused on SI region. She was exquisitely tender over her right SI joint. When examined she had a right leg length discrepancy which coincides with SI joint dysfunction. Right SI joint was reduced with straight leg pull with immediate improvement inpatient symptoms. At this time she will be discharged to complete a prednisone taper as outlined by GI to avoid adrenal issues. She will resume her invoked as her SI joint was likely culprit of her pain. She will follow up with GI and discuss continuation of same. Time Attestation Discharge Coordination Time (in mins): 35 Quality: Safe Use of Opioids Does Pt have an Active Cancer Diagnosis on the Problem List?: No Quality: Stroke Does the patient have a stroke diagnosis?: No Physical Exam Vital Signs: Vital Signs: Last Vital Signs Temp 97.8 F 12/17/23 07:35 Pulse 62 12/17/23 07:35 Resp 16 12/17/23 07:35 BP 129/71 12/17/23 07:35 Pulse Ox 99 12/17/23 07:35 O2 Del Method Room Air 12/17/23 07:35 BMI result Body Mass Index 21.4 Const: Other: Awake alert uncomfortable appearing Resp: Other: Clear to auscultation bilaterally no rales rhonchi or wheezes Cardio: Other: No S4; positive S1-S2; no S3 murmurs rubs or gallops GI: Other: Soft mildly tender diffusely with positive bowel sounds Extrem: Other: Rle greater LLE by 1.5 cm... Rle equal LLE after reduction DS: Data Data Completed and Pending Labs on day of discharge: Laboratory Results - last 24 hr 12/17/23 06:00 WBC 10.3 RBC 3.19 L Hgb 9.5 L Hct 29.0 L MCV 90.9 MCH 29.8 MCHC 32.8 RDW 15.4 Plt Count 427 H MPV 9.3 L Immature Gran % (Auto) 0.4 Neut % (Auto) 54.8 Lymph % (Auto) 39.2 [place] % (Auto) 5.4 Eos % (Auto) 0.1 Baso % (Auto) 0.1 Lymph # (Auto) 4.1 [place] # (Auto) 0.6 Eos # (Auto) 0.0 Baso # (Auto) 0.0 Abs Immat Gran (auto) 0.04 H Absolute Neuts (auto) 5.7 Absolute Nucleated RBC 0.000 Nucleated RBC % (auto) 0.0 Smear Tech's Comments VERIFIED Sodium 141 Potassium 4.0 Chloride 109 H Carbon Dioxide 27 Anion Gap 9 L BUN 14 Creatinine 0.63 Estim Creat Clear Calc 94.3 Estimated GFR > 60 Fasting Glucose 89 Calcium 8.3 L Total Bilirubin 0.2 AST 7 ALT 7 Alkaline Phosphatase 53 Total Protein 5.3 L Albumin 2.8 L Preliminary micro results at discharge 12/13/23 20:33 Blood Culture - Preliminary Blood - Venous No growth after 48 hours. 12/13/23 20:33 Blood Culture - Preliminary Blood - Venous No growth after 48 hours. Discharge Plan Discharge Anticipated Discharge Date/Time: 12/17/23 11:14 Patient Disposition: Home, Self-Care Discharge Diagnosis: Acute right-sided SI lesion Referrals: Gwendolyn Luis MD [Primary Care Provider] - 1 Week Discharge Medications: New prednisone 20 mg Tablet 40 mg PO DAILY Qty: 60 0RF oxycodone 5 mg tablet 5 mg PO Q6H MDD 20 PRN (Reason: pain) Qty: 20 0RF Rx Instructions: Partial Fill upon patient request. Continued acetaminophen 325 mg Tablet 650 mg PO QID PRN (Reason: Pain) cyanocobalamin (vitamin B-12) 1,000 mcg Tablet 1,000 mcg PO DAILY Vitamin C 100 mg Tablet 100 mg PO DAILY cholecalciferol (vitamin D3) [Vitamin D3] 10 mcg (400 unit) Tablet 10 mcg PO DAILY calcium carbonate [Calcium 600] 600 mg calcium (1,500 mg) Tablet 600 mg PO DAILY Rinvoq 45 mg Tablet Extended Release 24 Hr 45 mg PO DAILY Discharge Orders: Discharge Order (Routine); Ordered 12/17/23 Ordered By: Andrew Ashley Diet: Advance to usual diet Activity on Discharge: As tolerated Stand Alone Forms: Patient Portal Discharge page Print Language: Turkmen Activity Restrictions/Additional Instructions: Your symptoms were likely from a pelvic dysfunction that was corrected. It was unlikely this was a Crohn's flare. Follow up with GI to discuss Rinvoq Care Plan Goals: Continue all pre-hospital medications Health Concerns: Take prednisone 40 mg daily for 1 week then decrease by 5 mg per week until seen by your primary care. Oxycodone as needed for pain Plan of Treatment: Follow-up PCP/GI next available Assessment: See discharge summary Patient Instructions: Fever in Adults (ED), Adverse Drug Reaction (ED)
--- NOTE | 2023-12-17 11:30 | MHC.CM.PN ---
PT WILL DC HOME TODAY WITH NO SERVICES VIA PRIVATE TRANSPORT
== END 2023-12-17 13:07 | disposition home or self-care (01) | DRG 347 ==
LOC: HO.ED 12-14 08:01 → HO.EDOVER 12-14 10:55 → HO.S3 12-14 15:02
PROVIDERS: Family Medicine; Internal Medicine; Admitting Provider Internal Medicine; Emergency Provider Emergency Medicine Emergency Medical Services; PCP Internal Medicine; Visit Provider Hospitalist
DX: M46.1 Sacroiliitis, not elsewhere classified (principal); K50.00 Crohn's disease of small intestine without complications; Z20.822 Contact with and (suspected) exposure to COVID-19; Z79.69 Long term (current) use of other immunomodulators and immunosuppressants; Z87.891 Personal history of nicotine dependence; Z79.899 Other long term (current) drug therapy
CPT/HCPCS: 0241U; 36415; 71045; 72148; 73700; 73721; 74177; 80048; 80053; 81003; 81025; 82550; 83605; 85025; 85027; 85652; 86140; 87040; 93005; 99285; J1885; J2270; J2405; J2543; J2930; J3010; Q9967

== ENCOUNTER → 2023-12-13 19:30 | Outpatient (BNV) | payer OTHER, SELFPAY | PROVIDERS: Admitting Provider Internal Medicine; Emergency Provider Emergency Medicine Emergency Medical Services; PCP Internal Medicine; Visit Provider Internal Medicine Cardiovascular Disease | DX: R07.9 Chest pain, unspecified (principal) | CPT/HCPCS: 93010 ==

== ENCOUNTER → 2023-12-14 10:50 | Outpatient (BNV) | payer OTHER, SELFPAY | PROVIDERS: Admitting Provider Internal Medicine; Emergency Provider Emergency Medicine Emergency Medical Services; PCP Internal Medicine; Visit Provider Internal Medicine | DX: K50.00 Crohn's disease of small intestine without complications (principal); M54.50 Low back pain, unspecified | CPT/HCPCS: 99222; 99232; 99239 ==

== ENCOUNTER → 2023-12-14 10:50 | Outpatient (BNV) | payer OTHER, SELFPAY | PROVIDERS: Admitting Provider Internal Medicine; Emergency Provider Emergency Medicine Emergency Medical Services; PCP Internal Medicine; Visit Provider Psychiatry & Neurology Neurology | DX: M54.50 Low back pain, unspecified (principal) | CPT/HCPCS: 99222 ==

== ENCOUNTER → 2023-12-14 10:50 | Outpatient (BNV) | payer OTHER, SELFPAY | PROVIDERS: Admitting Provider Internal Medicine; Emergency Provider Emergency Medicine Emergency Medical Services; PCP Internal Medicine; Visit Provider Surgery | DX: K50.00 Crohn's disease of small intestine without complications (principal); M25.551 Pain in right hip | CPT/HCPCS: 99223; 99231; 99232 ==

== ENCOUNTER 2023-12-20 10:49 | Inpatient (IN) | payer OTHER, SELFPAY ==
--- NOTE | ~2023-12-20 | XR_ITS ---
EXAMINATION: XR ABDOMEN KUB CLINICAL INDICATION: Abdominal pain. Bloating. Constipation. COMPARISON: Abdominal x-rays of 11/21/2023, selected images of the abdomen and pelvic CT of 12/13/2023. TECHNIQUE: AP view of the abdomen and pelvis. FINDINGS: Ellwfjbu-qf-fcsgx stool burden is noted in the right-sided colon and uypmw-gy-zeubnqbm stool burden is noted in the left-sided colon. Air is noted in the rectosigmoid colon region. Mild gaseous distention of the multiple small bowel loops is noted in the central abdomen, somewhat similar to mildly decreased when compared to policy loan calculator view of 12/13/2023. No radiopaque urinary tract calculi are seen. The visualized lung bases are unremarkable. Osseous structures and unremarkable. XR/XR KUB IMPRESSION: Bnbffxnj-er-bxbxp stool burden in the right-sided colon and hiutx-kq-xnwjcdec stool burden in the left-sided colon. Persistent mild gaseous distention of the multiple small bowel loops in the central abdomen similar to that seen on the recent CT scan. Findings can be seen in the setting of partial small bowel obstruction, recommend clinical correlation.
--- NOTE | ~2023-12-20 | XR_ITS ---
EXAMINATION: XR CHEST CLINICAL INFORMATION: NG tube placement COMPARISON: Previous chest x-ray 12/13/2023 TECHNIQUE: Frontal view of the chest was obtained. FINDINGS: New nasogastric tube with tip projecting over the proximal stomach. The cardiac and mediastinal contours are normal. Lungs are clear. No pleural effusion or pneumothorax. Normal bony structures. XR/XR chest 1V IMPRESSION: Satisfactory position of nasogastric tube.
--- NOTE | ~2023-12-20 | XR_ITS ---
EXAMINATION: XR ABDOMEN KUB CLINICAL INDICATION: Small bowel obstruction COMPARISON: KUB 12/24/2023 TECHNIQUE: AP view of the abdomen. FINDINGS: Compared with the prior study, there has been improvement in appearances with decrease in the dilatation of the previously seen small bowel loops. Bowel loops are now of normal caliber. Gas and stool remain throughout the colon. No unusual calcifications are seen. Osseous structures are unremarkable. XR/XR KUB IMPRESSION: Improvement in appearances with decrease in small bowel dilatation.
[2023-12-20 10:52] VITALS: BP 106/65; PULSE 89; RESP 18; TEMP 36.6; O2SAT 99; BMI 20.6
--- NOTE | 2023-12-20 15:45 | ED.SKABFB ---
HPI - Skin/Abscess/Foreign Bdy General Chief complaint: Skin/Abscess/Foreign Body Stated complaint: R HIP/BACK PAIN X2 DAYS,RASH ON GROIN PER EMS Time Seen by Provider: 12/20/23 17:30 Source: patient and RN notes reviewed Mode of arrival: ambulatory Limitations: no limitations History of Present Illness HPI narrative: This is a 48-year-old female, with a history of Crohn's disease, who presents emergency department with complaints of blistered, painful rash to her groin, oral cavity. Patient was recently admitted on December 14, 2023 for a Crohn's disease acute flare. Prior to this admission she was also admitted in November for a Crohn's acute flare and recurrent partial small bowel obstruction. At that time she was treated with IV fluids, IV opiates IV steroids. She went home with steroids, feeling better and then returned on December 13 due to fevers, body aches and was diagnosed with a Crohn's flare, and was discharged on December 17, 2023. Patient states that on December 16, 2023, while she was in the hospital she developed a very painful, blistered rash in her mouth. She states that the day after she developed lesions on the outside of her mouth. She states that on December 17 she developed lesions on her external genitalia on the right side. She states that they are extremely painful. She states that they have since progressed, and now or blistering over. They are exquisitely sore, even to light palpation. She reports headaches, diffuse body aches, subjective fevers and chills. No chest pain, shortness of breath, abdominal pain, nausea, vomiting or diarrhea. She is not sexually active. No history of shingles in the past. No history of herpes. No other complaints or concerns at this time. complaint: rash Location: face and genitals Severity: severe Severity scale (1-10): >10 Quality: burning Pain Consistency: constant Relieving factors: none Exacerbating factors: none Context: none Associated symptoms: denies other symptoms Treatments prior to arrival: none Related Data Home Medications ?Medication ?Instructions ?Recorded ?Confirmed acetaminophen 325 mg tablet 650 mg PO QID PRN Pain 11/01/23 12/14/23 ascorbic acid (vitamin C) 100 mg 100 mg PO DAILY 11/01/23 12/14/23 tablet (Vitamin C) cholecalciferol (vitamin D3) 10 10 mcg PO DAILY 11/01/23 12/14/23 mcg (400 unit) tablet (Vitamin D3) cyanocobalamin (vitamin B-12) 1,000 mcg PO DAILY 11/01/23 12/14/23 1,000 mcg tablet calcium carbonate 600 mg calcium 600 mg PO DAILY 12/14/23 12/14/23 (1,500 mg) tablet (Calcium) upadacitinib 45 mg tablet,extended 45 mg PO DAILY 12/14/23 12/14/23 release 24 hr (Rinvoq) Previous Rx's ?Medication ?Instructions ?Recorded oxycodone 5 mg tablet 5 mg PO Q6H PRN pain #20 tabs 12/17/23 prednisone 20 mg tablet 40 mg (2 x 20 mg) PO DAILY #60 tabs 12/17/23 Allergies Allergy/AdvReac Type Severity Reaction Status Date / Time No Known Allergies Allergy Verified 12/20/23 10:57 [No Known Allergies*] Review of Systems Review of Systems: Yes all other systems are reviewed and are negative [facility] Past Medical History Medical History Crohn disease Crohn's disease Depression Social History Social History Household Members: Other Household Members Other:: father grandma Housing: House Do you presently have visiting nurse or other home services: No Alcohol intake: former Comment: pt refuses alarms Patient Tobacco Use Status: Former Tobacco user Quit Date: Tobacco use type: Cigarette Cigarette Packs Per Day: 0.5 Cigarettes Per Day: 2 Years Smoked: 34 e-Cigarette/Vaping Use: Currently Using Second Hand Smoke Exposure: No Advance Directives: Yes Advance Directives on File: Yes Advance Directives Date on File: 07/04/23 service: No Physical Exam Vital Signs: Vital Signs: Last Vital Signs Temp 96.8 F 12/20/23 15:46 Pulse 70 12/20/23 16:52 Resp 18 12/20/23 16:52 BP 106/67 12/20/23 16:52 Pulse Ox 98 12/20/23 16:52 O2 Del Method Room Air 12/20/23 16:52 BMI result Body Mass Index 20.6 : Other: Scattered macular papular lesions with crusting. Exquisite tenderness to palpation even to light palpation examination performed with ANALILIA Le present Skin: Other: Course Course Course Narrative: RME:?48 yo female here via EMS for eval of blistering rash to groin/oral cavity/ lip and myalgias x2 wks. admits to starting rinvoq for crohns on 12/04/23. PCP told her to come to the ED for evaluation. was told to discontinue rinvoq. recently seen in ED for crohns flare with SBO. discharged Monday. no concern for STDs. no new lotions/soaps/detergents. No known allergies. labs, UA ordered. Full HPI, ROS and PE to be performed by the primary ED provider. Reevaluation(s) Reevaluation #1: Patient admitted for herpes zoster and intractable pain. Transfer of care initiated. Time: 19:39 Medications Administered Discontinued Medications Generic Name Dose Route Start Last Admin Trade Name Freq PRN Reason Stop Dose Admin Morphine Sulfate 15 mg 12/20/23 18:04 12/20/23 18:31 Morphine Sulfate Immed Release 15 Mg Tablet PO 12/20/23 18:05 15 mg ONCE ONE Administration Medical Decision Making Medical Decision Making [facility] Narrative: This 48-year-old female, with a history of Crohn's disease, who presents emergency department complaints of painful groin rash and painful facial rash. On arrival, vital signs within normal limits. Patient was seen approximately 6 hours after she originally checked in to the emergency room. Labs were already performed, she has no leukocytosis, H&H stable. Chemistry nondiagnostic. Rash concerning for shingles. Given that she has rash in her groin as well as on her face, this is concerning for disseminated varicella zoster. She is in if can not amount of pain secondary to the rash. Given pain, patient care discussion was made with patient and daughter at bedside, at this time she does not feel comfortable for discharge with pain control, antiviral. Given concern for possible dissemination, she may qualify for hospital admission. Will discuss with hospitalist for further management. In the meantime, patient medicated with morphine 15 mg p.o. Differential Diagnosis Differential Diagnoses: The differential diagnosis associated with the presentation includes Herpes zoster, cellulitis, Anisha Lab Data 12/20/23 17:14 12/20/23 17:14 Labs: Lab Results 12/20/23 Range/Units 17:14 WBC 7.6 (4.8-10.8) X10*3/uL RBC 3.63 L (4.20-5.50) X10*6/uL Hgb 10.8 L (12.0-16.0) g/dl Hct 31.8 L (37.0-47.0) % MCV 87.6 (80.0-98.0) fL MCH 29.8 (27.0-33.0) pg MCHC 34.0 (31.0-35.0) g/dl RDW 14.8 (11.0-16.0) % Plt Count 497 H (160-400) X10*3/uL MPV 8.5 L (9.4-12.3) fL Immature Gran % (Auto) 0.7 H (0.0-0.4) % Neut % (Auto) 62.6 (45-73) % Lymph % (Auto) 32.4 (20-40) % [place] % (Auto) 4.1 (2-11) % Eos % (Auto) 0.1 (0-4) % Baso % (Auto) 0.1 (0-2) % Lymph # (Auto) 2.5 (1.2-4.9) X10*3/uL [place] # (Auto) 0.3 (0.1-1.2) X10*3/uL Eos # (Auto) 0.0 (0.0-0.4) X10*3/uL Baso # (Auto) 0.0 (0.0-0.2) X10*3/uL Abs Immat Gran (auto) 0.05 H (0.00-0.03) X10*3/uL Absolute Neuts (auto) 4.8 (2.0-8.3) x10*3/uL Absolute Nucleated RBC 0.000 (0.0-0.012) X10*3/uL Nucleated RBC % (auto) 0.0 (0.0-0.2) /100WBC Sodium 139 (135-145) mmol/L Potassium 4.4 (3.3-5.1) mmol/L Chloride 101 (96-108) mmol/L Carbon Dioxide 33 H (22-29) mmol/L Anion Gap 9 L (12-20) BUN 18 H (9-16) mg/dL Creatinine 0.58 (0.5-1.4) mg/dL Estim Creat Clear Calc 101.9 Estimated GFR > 60 Random Glucose 134 H (60-115) mg/dL Calcium 9.1 D (8.4-10.2) mg/dL Magnesium 2.1 (1.6-2.6) mg/dL Total Bilirubin 0.1 (0.0-1.0) mg/dL AST 12 (5-31) U/L ALT 45 H (0-31) U/L Alkaline Phosphatase 60 (39-117) U/L Total Protein 6.2 L (6.5-8.0) g/dL Albumin 3.5 (3.5-5.0) g/dL Lipase 20 (8-78) U/L Critical Care Time Critical Care Time Critical Care Time: Yes Total Critical Care Time: 35 Attestation: I have personally provided critical care time exclusive of time spent on separately billable procedures. Time includes review of lab data, radiology results, discussion with consultants, and monitoring for potential decompensation. Intervention performed as documented. Discharge Plan Discharge Clinical Impression: Calvin Patient Disposition: Admitted As Inpatient Print Language: Pakistani
[2023-12-20 15:46] VITALS: BP 106/57; PULSE 99; RESP 18; TEMP 36; O2SAT 100
[2023-12-20 16:52] VITALS: BP 106/67; PULSE 70; RESP 18; O2SAT 98
[2023-12-20 17:17] LABS: MANUAL DIFF FLAG NO
[2023-12-20 17:28] LABS: Basophils Percent Auto 0.1 % (0-2); Eosinophils Percent Auto 0.1 % (0-4); Hematocrit 31.8 % (37.0-47.0); Hemoglobin 10.8 g/dl (12.0-16.0); Imm Gran Abs Auto 0.05 X10*3/uL (0.00-0.03); Imm Gran Pct Auto 0.7 % (0.0-0.4); Lymphocytes Absolute Auto 2.5 X10*3/uL (1.2-4.9); Lymphocytes Percent Auto 32.4 % (20-40); Mean Corpuscular Hemoglobin 29.8 pg (27.0-33.0); Mean Corpuscular Volume 87.6 fL (80.0-98.0); Mean Platelet Volume 8.5 fL (9.4-12.3); Monocytes Absolute Auto 0.3 X10*3/uL (0.1-1.2); Monocytes Percent Auto 4.1 % (2-11); Neutrophils Absolute Auto 4.8 x10*3/uL (2.0-8.3); Neutrophils Percent Auto 62.6 % (45-73); Platelet Count 497 X10*3/uL (160-400); Red Blood Count 3.63 X10*6/uL (4.20-5.50); Red Cell Distribution Width 14.8 % (11.0-16.0); White Blood Count 7.6 X10*3/uL (4.8-10.8)
[2023-12-20 17:32] LABS: Alanine Aminotransferase 45 U/L (0-31); Albumin Level 3.5 g/dL (3.5-5.0); Alkaline Phosphatase 60 U/L (39-117); Anion Gap 9 (12-20); Aspartate Amino Transferase 12 U/L (5-31); Bilirubin Total 0.1 mg/dL (0.0-1.0); Blood Urea Nitrogen 18 mg/dL (9-16); Calcium 9.1 mg/dL (8.4-10.2); Carbon Dioxide 33 mmol/L (22-29); Chloride 101 mmol/L (96-108); Creatinine Clr Calc Pharmacy 101.9; Estimated Glomerular Filt Rate > 60; Glucose Random 134 mg/dL (60-115); Lipase 20 U/L (8-78); Magnesium 2.1 mg/dL (1.6-2.6); Potassium 4.4 mmol/L (3.3-5.1); Sodium 139 mmol/L (135-145); Total Protein 6.2 g/dL (6.5-8.0)
[2023-12-20] MEDS: Morphine Sulfate Immed Release 15 MG TABLET PO (18:31)
--- NOTE | 2023-12-20 20:07 | PM.IMHP ---
History of Present Illness Date of Service: 12/20/23 Attending physician on admission: Stephanie Fox Chief Complaint: Painful rash Pt is a 48-year-old female with a PMH significant for Crohn's disease? who presents to the ED for evaluation of painful blistering sores on mouth and around groin. Patient was previously admitted to the hospital on 12/13-12/16 and initially treated for Crohn's flare but found to have SI joint dysfunction which resolved with straight leg pull. While in the hospital says developed painful blisters on the inside of her mouth on Monday. On Monday blisters began appearing on the right side of her face and then on Monday, noticed blistering sores on the right side of her groin. Rash in groin area spread while that around the mouth remained contained. Both sites are very painful, itchy, and burning . Reports subjective fever, chills, fatigue, having difficulty sleeping or eating well, and being unable to walk. Some nausea but no vomiting. Also reports lower back and right hip pain. Patient reports she normally gets cold sores whenever she is sick, but also notes she has recently started Rinvoq on 12/04/2023 which has a known side effect of herpes zoster. Patient states she had chickenpox when she was younger, and has not yet received the shingles vaccination. Denies chest pain/pressure or palpitations. No SOB. In the ED pt was afebrile with elevated HR of 99, vitals otherwise WNL. Labs were grossly unremarkable and WNL or baseline for pt. Pt was treated with morphine. Pt will be admitted to the hospital for treatment and further evaluation of disseminated herpes zoster. Review of Systems Review of Systems: Painful, pruritic, burning blistering rash to right side of mouth and right groin Subjective fever and chills Nausea, no vomiting Lower back and right hip pain Denies chest pain/pressure, palpitations No shortness of breath PMFSH Medical History Crohn disease Crohn's disease Depression Social History Household Members: Other Household Members Other:: father grandma Housing: House Do you presently have visiting nurse or other home services: No Alcohol intake: former Comment: pt refuses alarms Patient Tobacco Use Status: Former Tobacco user Quit Date: Tobacco use type: Cigarette Cigarette Packs Per Day: 0.5 Cigarettes Per Day: 2 Years Smoked: 34 e-Cigarette/Vaping Use: Currently Using Second Hand Smoke Exposure: No Advance Directives: Yes Advance Directives on File: Yes Advance Directives Date on File: 07/04/23 service: No Meds Allergies Allergy/AdvReac Type Severity Reaction Status Date / Time No Known Allergies Allergy Verified 12/20/23 10:57 [No Known Allergies*] Active Medications: Current Medications Acetaminophen (Acetaminophen 325 Mg Tablet) 650 mg PO Q6H PRN PRN Reason: Pain, Mild (Pain Scale 1-3) Benzonatate (Benzonatate 100 Mg Capsule) 100 mg PO TID PRN PRN Reason: Cough Enoxaparin Sodium (Enoxaparin Sodium 40 Mg/0.4 Ml Syringe) 40 mg SUBCUT Q24H [facility] Gabapentin (Gabapentin 100 Mg Capsule) 200 mg PO TID [facility] Acyclovir Sodium 545 mg/ (Sodium Chloride) 110.9 mls @ 110.9 mls/hr IV Q8H [facility] Melatonin (Melatonin 3 Mg Tablet) 6 mg PO BEDTIME PRN PRN Reason: Insomnia Morphine Sulfate (Morphine Sulfate 4 Mg/Ml Cartridge) 4 mg IVPUSH Q4H PRN; Protocol PRN Reason: Pain, Severe (Pain Scale 7-10) Ondansetron HCl (Ondansetron Hcl 4 Mg/2 Ml Vial) 4 mg IVPUSH Q8H PRN PRN Reason: Nausea and Vomiting Sodium Chloride (0.9 % Sodium Chloride Flush 3 Ml Syringe) 3 ml IVFLUSH QSHIFT [facility] Home Medications ?Medication ?Instructions ?Recorded ?Confirmed ?Last Taken ?Type acetaminophen 325 mg tablet 650 mg PO QID PRN Pain 11/01/23 12/20/23 Unknown History ascorbic acid (vitamin C) 100 mg 100 mg PO DAILY 11/01/23 12/20/23 12/13/23 History tablet (Vitamin C) cholecalciferol (vitamin D3) 10 10 mcg PO DAILY 11/01/23 12/20/23 12/13/23 History mcg (400 unit) tablet (Vitamin D3) cyanocobalamin (vitamin B-12) 1,000 mcg PO DAILY 11/01/23 12/20/23 12/13/23 History 1,000 mcg tablet calcium carbonate 600 mg calcium 600 mg PO DAILY 12/14/23 12/20/23 12/13/23 History (1,500 mg) tablet (Calcium) upadacitinib 45 mg tablet,extended 45 mg PO DAILY 12/14/23 12/20/23 12/13/23 History release 24 hr (Rinvoq) Physical Exam Vital Signs and Narrative: Vital Signs: Last Vital Signs Temp 96.8 F 12/20/23 15:46 Pulse 70 12/20/23 16:52 Resp 18 12/20/23 16:52 BP 106/67 12/20/23 16:52 Pulse Ox 98 12/20/23 16:52 O2 Del Method Room Air 12/20/23 16:52 BMI result Body Mass Index 20.6 General: AOx3, no acute distress Resp: CTA bilaterally CVS: S1, S2, RRR GI: +BS, NT, no distention Skin: Warm, dry Neuro: Cranial nerves II-XII grossly intact bilaterally. Motor grossly intact bilaterally Extremities: No edema Skin: Grouped vesicles at different stages of development on an erythematous base roughly dermatomal distribution of right groin. Crusted confluent ulcerations on inflammatory base on right side of face in dermatomal distribution. As pictured below. Psych: Appropriate affect Results Labs 12/20/23 17:14 12/20/23 17:14 Labs: Laboratory Results - last 24 hr 12/20/23 17:14 MCV 87.6 MCH 29.8 MCHC 34.0 RDW 14.8 Plt Count 497 H MPV 8.5 L Immature Gran % (Auto) 0.7 H Neut % (Auto) 62.6 Lymph % (Auto) 32.4 [place] % (Auto) 4.1 Eos % (Auto) 0.1 Baso % (Auto) 0.1 Lymph # (Auto) 2.5 [place] # (Auto) 0.3 Eos # (Auto) 0.0 Baso # (Auto) 0.0 Abs Immat Gran (auto) 0.05 H Absolute Neuts (auto) 4.8 Absolute Nucleated RBC 0.000 Nucleated RBC % (auto) 0.0 Anion Gap 9 L Estim Creat Clear Calc 101.9 Estimated GFR > 60 Random Glucose 134 H Calcium 9.1 D Magnesium 2.1 Total Bilirubin 0.1 AST 12 ALT 45 H Alkaline Phosphatase 60 Total Protein 6.2 L Albumin 3.5 Lipase 20 Assessment and Plan (1) Shingles: Status: Acute Plan Pt is a 48-year-old female with a PMH significant for Crohn's disease? who presents to the ED for evaluation of painful blistering sores on mouth and around groin. Pt will be admitted to the hospital for treatment and further evaluation of disseminated herpes zoster. Herpes zoster flare Likely secondary to Rinvoq use Patient with painful and pruritic lesions in roughly dermatomal distribution on right face and right groin Will treat with acyclovir 10 milligrams/kilogram q8h x7 days Gabapentin t.i.d. Analgesics for pain management ID consultation Hold Rinvoq Chron's disease Not in acute flare Hold Rinvoq, prednisone Full Code Attending:?Dr. Viveros DVT Prophylaxis: Lovenox Pt will require a hospitalization of at least two nights for treatment of?herpes zoster flare up. Given disseminated nature of patient's flare up, including involvement of the face, and patient's immunocompromised state, she will require hospitalization for the administration of IV antivirals and specialist consultation with Infectious Disease. Quality Stroke Does the patient have a stroke diagnosis?: No VTE Prior VTE?: No VTE Risk Level:: Medical - moderate - high VTE Device Contraindication: Treatment Not Indicated VTE Drug Contraindication: N/A - Med Ordered
--- NOTE | 2023-12-20 20:23 | PHA.MEDREC ---
Pharmacy Consult ? Medication Reconciliation Pharmacy has completed the medication reconciliation, pt was recently discharged 12/16, utilized discharge packet.
[2023-12-20] MEDS: Enoxaparin Sodium 40 MG/0.4 ML SYRINGE SUBCUT (21:13)
[2023-12-20] MEDS: Gabapentin 100 MG CAPSULE 200 MG PO (21:13)
[2023-12-20] MEDS: Morphine Sulfate 4 MG/ML CARTRIDGE IVPUSH (21:21)
[2023-12-20 21:37] LABS: Appearance Urine Clear; Color Urine Yellow; Glucose Urine UA Negative (Negative); Leukocyte Esterase Urine Negative (Negative); Nitrite Urine Negative (Negative); Urine Blood Negative (Negative); Urine Ketones Negative (Negative); Urine Protein Negative (Neg-Trace)
[2023-12-21] VITALS (8 sets, daily range): BP systolic 85–107; BP diastolic 53–61; PULSE 64–91; RESP 16–20; TEMP 36.5–37.2; O2SAT 95–98
[2023-12-21] MEDS: 0.9 % Sodium Chloride Flush 3 ML SYRINGE IVFLUSH ×3 (02:08→15:39)
[2023-12-21] MEDS: Morphine Sulfate 4 MG/ML CARTRIDGE IVPUSH ×2 (06:34→10:56)
--- NOTE | 2023-12-21 06:38 | PC.NURSE ---
pt medicated for pain to fito area 10/10 blisters noted.
--- NOTE | 2023-12-21 08:50 | PC.NURSE ---
patient is alert and oriented with even and unlabored respirations. no obvious signs/symptoms of distress noted. patient placed on airborne precautions.
[2023-12-21] MEDS: Cyanocobalamin (Vitamin B-12) 1,000 MCG TABLET 1000 MCG PO (10:01)
[2023-12-21] MEDS: predniSONE 20 MG TABLET 40 MG PO (10:01)
[2023-12-21] MEDS: Cholecalciferol (Vitamin D3) 10 MCG TABLET PO (10:02)
[2023-12-21] MEDS: Gabapentin 100 MG CAPSULE 200 MG PO ×3 (10:02→21:42)
[2023-12-21 11:54] LABS: CT PCR NOT DETECTED (Not Detect.); NG PCR NOT DETECTED (Not Detect.)
--- NOTE | 2023-12-21 13:57 | P.PNIM_ITS ---
Subjective Subjective Date of Service: 12/21/23 Interval History: Seen and examined this morning Follow-up for disseminated herpes zoster Reporting pain at affected areas Review of Systems Review of Systems: Yes all other systems are reviewed and are negative Constitutional Constitutional: Denies chills and Denies fever(s) Cardiovascular Cardiovascular: Denies chest pain, Denies palpitations and Denies dyspnea Respiratory Respiratory: Denies cough and Denies dyspnea Endocrine Endocrine: Denies palpitations Physical Exam 2 Vital Signs: Vital Signs: Last Vital Signs Temp 98.3 F 12/21/23 06:16 Pulse 64 12/21/23 06:16 Resp 16 12/21/23 06:34 BP 107/61 12/21/23 06:16 Pulse Ox 98 12/21/23 06:00 O2 Del Method Room Air 12/21/23 06:00 BMI result Body Mass Index 20.6 Objective Data Active Medications Acetaminophen (Acetaminophen 325 Mg Tablet) 650 mg PO Q6H PRN PRN Reason: Pain, Mild (Pain Scale 1-3) Benzonatate (Benzonatate 100 Mg Capsule) 100 mg PO TID PRN PRN Reason: Cough Cyanocobalamin (Cyanocobalamin (Vitamin B-12) 1,000 Mcg Tablet) 1,000 mcg PO DAILY [facility] Last Admin: 12/21/23 10:01 Dose: 1,000 mcg Documented By: JEFF Enoxaparin Sodium (Enoxaparin Sodium 40 Mg/0.4 Ml Syringe) 40 mg SUBCUT Q24H [facility] Last Admin: 12/20/23 21:13 Dose: 40 mg Documented By: LEXII Gabapentin (Gabapentin 100 Mg Capsule) 200 mg PO TID [facility] Last Admin: 12/21/23 10:02 Dose: 200 mg Documented By: JEFF Acyclovir Sodium 545 mg/ (Sodium Chloride) 110.9 mls @ 110.9 mls/hr IV Q8H [facility] Last Infusion: 12/21/23 08:04 Dose: Infused Documented By: JEFF Melatonin (Melatonin 3 Mg Tablet) 6 mg PO BEDTIME PRN PRN Reason: Insomnia Morphine Sulfate (Morphine Sulfate 4 Mg/Ml Cartridge) 4 mg IVPUSH Q4H PRN; Protocol PRN Reason: Pain, Severe (Pain Scale 7-10) Last Admin: 12/21/23 10:56 Dose: 4 mg Documented By: JEFF Ondansetron HCl (Ondansetron Hcl 4 Mg/2 Ml Vial) 4 mg IVPUSH Q8H PRN PRN Reason: Nausea and Vomiting Sodium Chloride (0.9 % Sodium Chloride Flush 3 Ml Syringe) 3 ml IVFLUSH QSHIFT [facility] Last Admin: 12/21/23 10:01 Dose: 3 ml Documented By: JEFF Vitamin D (Cholecalciferol (Vitamin D3) 10 Mcg Tablet) 10 mcg PO DAILY [facility] Last Admin: 12/21/23 10:02 Dose: 10 mcg Documented By: JEFF Labs 12/20/23 17:14 12/20/23 17:14 Labs: Laboratory Results - last 24 hr 12/20/23 12/20/23 12/21/23 17:14 21:27 10:04 MCV 87.6 MCH 29.8 MCHC 34.0 RDW 14.8 Plt Count 497 H MPV 8.5 L Immature Gran % (Auto) 0.7 H Neut % (Auto) 62.6 Lymph % (Auto) 32.4 [place] % (Auto) 4.1 Eos % (Auto) 0.1 Baso % (Auto) 0.1 Lymph # (Auto) 2.5 [place] # (Auto) 0.3 Eos # (Auto) 0.0 Baso # (Auto) 0.0 Abs Immat Gran (auto) 0.05 H Absolute Neuts (auto) 4.8 Absolute Nucleated RBC 0.000 Nucleated RBC % (auto) 0.0 Anion Gap 9 L Estim Creat Clear Calc 101.9 Estimated GFR > 60 Random Glucose 134 H Calcium 9.1 D Magnesium 2.1 Total Bilirubin 0.1 AST 12 ALT 45 H Alkaline Phosphatase 60 Total Protein 6.2 L Albumin 3.5 Lipase 20 Urine Color Yellow Urine Appearance Clear Urine pH 8.0 Ur Specific [place] 1.020 Urine Protein Negative Urine Glucose (UA) Negative Urine Ketones Negative Urine Blood Negative Urine Nitrite Negative Ur Leukocyte Esterase Negative Chlam trachomat DNA PCR NOT DETECTED N.gonorrhoeae DNA (PCR) NOT DETECTED Assessment and Plan (1) Shingles: Status: Acute Plan This is a 48-year-old female with a PMH significant for Crohn's disease? who presents to the ED for evaluation of painful blistering sores on mouth and around groin. Pt will be admitted to the hospital for treatment and further evaluation of disseminated herpes zoster. Herpes zoster Likely secondary to Rinvoq use which she started december 03 continue acyclovir IV, likely d/c with valacyclovir 1gm TID x 10-14 days - will discuss with ID Gabapentin t.i.d. Analgesics for pain management ID consultation pending Hold Rinvoq Chron's disease Not in acute flare Hold Rinvoq, prednisone was on prednisone to prevent adrenal issues - will discuss with ID if ok to continue Full Code Attending:?Dr. Viveros DVT Prophylaxis: Lovenox Pt will require a hospitalization of at least two nights for treatment of?herpes zoster flare up. Given disseminated nature of patient's flare up, including involvement of the face, and patient's immunocompromised state, she will require hospitalization for the administration of IV antivirals and specialist consultation with Infectious Disease. Quality Stroke Does the patient have a stroke diagnosis?: No VTE Prior VTE?: No VTE Risk Level:: Medical - moderate - high VTE Device Contraindication: Treatment Not Indicated VTE Drug Contraindication: N/A - Med Ordered
--- NOTE | 2023-12-21 16:05 | PC.NURSE ---
Low BP patient asymptomatic,85/54 pulse 81,MARILEE Cormier made aware
[2023-12-21] MEDS: 0.9 % Sodium Chloride 500 ML IV (16:23)
[2023-12-21] MEDS: oxyCODONE HCl Immed Release 5 MG TABLET PO (16:26)
[2023-12-21] MEDS: Lactated Ringers 1,000 ML 100 ML IVCONT (18:43)
[2023-12-21] MEDS: Enoxaparin Sodium 40 MG/0.4 ML SYRINGE SUBCUT (21:41)
[2023-12-21] MEDS: Morphine Sulfate 4 MG/ML CARTRIDGE 2 MG IVPUSH (21:43)
[2023-12-22 03:05] VITALS: BP 110/60; PULSE 70; RESP 18; TEMP 36.6; O2SAT 95
[2023-12-22] MEDS: Morphine Sulfate 4 MG/ML CARTRIDGE 2 MG IVPUSH ×4 (03:09→18:22)
[2023-12-22 07:27] LABS: HIV AB/AG Nonreactive (Nonreactive); HIV Num 1 0.06 S/CO (0.00-0.99)
[2023-12-22 07:39] VITALS: BP 107/68; PULSE 68; RESP 16; TEMP 36.6; O2SAT 97
[2023-12-22] MEDS: Cholecalciferol (Vitamin D3) 10 MCG TABLET PO (09:03)
[2023-12-22] MEDS: Cyanocobalamin (Vitamin B-12) 1,000 MCG TABLET 1000 MCG PO (09:03)
[2023-12-22] MEDS: Gabapentin 100 MG CAPSULE 200 MG PO ×3 (09:03→21:16)
[2023-12-22] MEDS: Lactated Ringers 1,000 ML 100 ML IVCONT ×2 (09:35→21:17)
--- NOTE | 2023-12-22 11:52 | MHC.CM.PN ---
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
[2023-12-22 12:44] VITALS: BMI 20.6
--- NOTE | 2023-12-22 13:01 | MHC.CLN ---
NUTRITION CONSULT FOR WEIGHT LOSS. SIGNIFICANT WEIGHT LOSS X 6 MONTHS, -20%, DUE TO CROHN'S DISEASE, HX SBO, AND MULTIPLE HOSPITALIZATIONS. DIET=REGULAR. ADDING ENSURE CLEAR TID TO INCREASE NUTRITIONAL INTAKE. SUPPLEMENT PROVIDES 720 KCALS, 24 G PROTEIN. FOLLOW FOR PO INTAKE AND DIET TOLERANCE. SEE CLINICAL NUTRITION ASSESSMENT 12/22/23.
--- NOTE | 2023-12-22 15:39 | P.CNID_ITS ---
History of Present Illness Data of Consult Service Date: 12/21/23 Requesting physician: Genia Roche Primary Care Provider: Gwendolyn Luis MD HPI Reason for consult: herpes zoster,disseminated She presents with painful blistered rash for last week on right groin. She has Crohns and on Rinvoq,recently started. She has pain walking. She also has face lesion. Review of Systems 2 Review of Systems: Yes all other systems are reviewed and are negative PMFSH Past Medical History Medical History Crohn disease Crohn's disease Depression Family History Family history: reviewed and not pertinent Social History Social History Household Members: Family Household Members Other:: father grandma Housing: House Do you presently have visiting nurse or other home services: No Alcohol intake: never Comment: pt refuses alarms Patient Tobacco Use Status: Former Tobacco user Quit Date: Tobacco use type: Cigarette Cigarette Packs Per Day: 0.5 Cigarettes Per Day: 2 Years Smoked: 3 months ago e-Cigarette/Vaping Use: Currently Using Second Hand Smoke Exposure: No Advance Directives Date on File: 07/04/23 service: No Meds Allergies Allergy/AdvReac Type Severity Reaction Status Date / Time No Known Allergies Allergy Verified 12/20/23 10:57 [No Known Allergies*] Active Medications: Current Medications Acetaminophen (Acetaminophen 325 Mg Tablet) 650 mg PO Q6H PRN PRN Reason: Pain, Mild (Pain Scale 1-3) Benzonatate (Benzonatate 100 Mg Capsule) 100 mg PO TID PRN PRN Reason: Cough Calamine (Calamine/Zinc Oxide Lotion 177 Ml Bottle) 1 appl TOPICAL QID PRN; Protocol PRN Reason: Pain, Mild (Pain Scale 1-3) Cyanocobalamin (Cyanocobalamin (Vitamin B-12) 1,000 Mcg Tablet) 1,000 mcg PO DAILY [facility] Last Admin: 12/22/23 09:03 Dose: 1,000 mcg Enoxaparin Sodium (Enoxaparin Sodium 40 Mg/0.4 Ml Syringe) 40 mg SUBCUT Q24H [facility] Last Admin: 12/21/23 21:41 Dose: 40 mg Gabapentin (Gabapentin 100 Mg Capsule) 200 mg PO TID [facility] Last Admin: 12/22/23 14:43 Dose: 200 mg Lactated Ringer's (Lr) 1,000 mls @ 100 mls/hr IVCONT .Q10H [facility] Last Admin: 12/22/23 09:35 Dose: 100 mls/hr Acyclovir Sodium 545 mg/ (Sodium Chloride) 110.9 mls @ 110.9 mls/hr IV Q8H [facility] Last Infusion: 12/22/23 14:28 Dose: Infused Melatonin (Melatonin 3 Mg Tablet) 6 mg PO BEDTIME PRN PRN Reason: Insomnia Morphine Sulfate (Morphine Sulfate 4 Mg/Ml Cartridge) 2 mg IVPUSH Q4H PRN; Protocol PRN Reason: Pain, Severe (Pain Scale 7-10) Last Admin: 12/22/23 13:48 Dose: 2 mg Ondansetron HCl (Ondansetron Hcl 4 Mg/2 Ml Vial) 4 mg IVPUSH Q8H PRN PRN Reason: Nausea and Vomiting Sodium Chloride (0.9 % Sodium Chloride Flush 3 Ml Syringe) 3 ml IVFLUSH QSHIFT [facility] Last Admin: 12/22/23 15:05 Dose: Not Given Vitamin D (Cholecalciferol (Vitamin D3) 10 Mcg Tablet) 10 mcg PO DAILY [facility] Last Admin: 12/22/23 09:03 Dose: 10 mcg Home Medications ?Medication ?Instructions ?Recorded ?Confirmed ?Last Taken ?Type acetaminophen 325 mg tablet 650 mg PO QID PRN Pain 11/01/23 12/20/23 Unknown History ascorbic acid (vitamin C) 100 mg 100 mg PO DAILY 11/01/23 12/20/23 12/13/23 History tablet (Vitamin C) cholecalciferol (vitamin D3) 10 10 mcg PO DAILY 11/01/23 12/20/23 12/13/23 History mcg (400 unit) tablet (Vitamin D3) cyanocobalamin (vitamin B-12) 1,000 mcg PO DAILY 11/01/23 12/20/23 12/13/23 History 1,000 mcg tablet calcium carbonate 600 mg calcium 600 mg PO DAILY 12/14/23 12/20/23 12/13/23 History (1,500 mg) tablet (Calcium) upadacitinib 45 mg tablet,extended 45 mg PO DAILY 04/11/24 04/17/24 04/10/24 History release 24 hr (Rinvoq) Physical Exam 2 Vital Signs: Vital Signs: Last Vital Signs Temp 97.8 F 12/22/23 07:39 Pulse 68 12/22/23 07:39 Resp 16 12/22/23 07:39 BP 107/68 12/22/23 07:39 Pulse Ox 97 12/22/23 07:39 O2 Del Method Room Air 12/22/23 07:39 BMI result Body Mass Index 20.6 Const: General: cooperative HEENT: Head: Yes normal to inspection Face and sinus: Yes normal facial exam Mouth: Normal oral and palatal mucosa present Teeth and gingiva: d entition normal Eyes: General: appearance normal, both eyes and all related structures P upils: Equal, round and reactive pupils present Resp: Effort & Inspection: normal respiratory effort Cardio: Rate: regular rate Rhythm: regular rhythm GI: Palpation (GI): Soft to palpation and nontender : General: Yes no CVA tenderness Back/Spine/Pelvis: Back: no CVA tenderness Skin: Other: lesions L1-L3 vesiculopustular V2 lesion face vesicular Full body images: 1. right groin 2. lip Neuro: General: moves all extremities Cranial nerves: Yes Equal, round and reactive pupils present Extrem: General: Yes normal to inspection Psych: Appearance: grossly normal Results Labs 12/20/23 17:14 12/20/23 17:14 Assessment and Plan (1) Shingles: Status: Acute (2) Crohns disease of small intestine: Status: Acute Plan She has disseminated herpes zoster. She has face and anterior groin area Would continue IV Acyclovir 10 mg/kg tid until healed and then Valtrex 1 g po tid until improved, possible 10 d. Respiratory isolation
--- NOTE | 2023-12-22 16:30 | P.PNIM_ITS ---
Subjective Subjective Date of Service: 12/22/23 Interval History: seen and examined this morning Follow-up for disseminated herpes zoster No crusting overall lesions at this time, still with burning pain at affected areas Review of Systems Review of Systems: Yes all other systems are reviewed and are negative Constitutional Constitutional: Denies chills and Denies fever(s) Cardiovascular Cardiovascular: Denies chest pain, Denies palpitations and Denies dyspnea Respiratory Respiratory: Denies cough and Denies dyspnea Gastrointestinal Gastrointestinal: Denies abdominal pain Endocrine Endocrine: Denies palpitations Physical Exam 2 Vital Signs: Vital Signs: Last Vital Signs Temp 97.8 F 12/22/23 07:39 Pulse 68 12/22/23 07:39 Resp 16 12/22/23 07:39 BP 107/68 12/22/23 07:39 Pulse Ox 97 12/22/23 07:39 O2 Del Method Room Air 12/22/23 07:39 BMI result Body Mass Index 20.6 Const: General: cooperative, comfortable, no acute distress, alert and awake Nutritional Appearance: average body habitus Orientation/consciousness: p atient oriented x3 Resp: Effort & Inspection: normal respiratory effort, able to speak in complete sentences, no respiratory distress and no use of accessory muscles Cardio: Rate: regular rate GI: Inspection: No distended Palpation (GI): not soft and nontender : Other: right side pelvic rash - remains similar to admission, see picture admission H&P. no crusting lesions Neuro: General: patient oriented x3, moves all extremities and CN's II-XI intact bilaterally Extrem: General: Yes no pedal edema Objective Data Active Medications Acetaminophen (Acetaminophen 325 Mg Tablet) 650 mg PO Q6H PRN PRN Reason: Pain, Mild (Pain Scale 1-3) Benzonatate (Benzonatate 100 Mg Capsule) 100 mg PO TID PRN PRN Reason: Cough Calamine (Calamine/Zinc Oxide Lotion 177 Ml Bottle) 1 appl TOPICAL QID PRN; Protocol PRN Reason: Pain, Mild (Pain Scale 1-3) Cyanocobalamin (Cyanocobalamin (Vitamin B-12) 1,000 Mcg Tablet) 1,000 mcg PO DAILY ALONDRA Last Admin: 12/22/23 09:03 Dose: 1,000 mcg Documented By: LEVAR Enoxaparin Sodium (Enoxaparin Sodium 40 Mg/0.4 Ml Syringe) 40 mg SUBCUT Q24H [facility] Last Admin: 12/21/23 21:41 Dose: 40 mg Documented By: MICAELA Gabapentin (Gabapentin 100 Mg Capsule) 200 mg PO TID [facility] Last Admin: 12/22/23 14:43 Dose: 200 mg Documented By: LEVAR Lactated Ringer's (Lr) 1,000 mls @ 100 mls/hr IVCONT .Q10H [facility] Last Admin: 12/22/23 09:35 Dose: 100 mls/hr Documented By: LEVAR Acyclovir Sodium 545 mg/ (Sodium Chloride) 110.9 mls @ 110.9 mls/hr IV Q8H [facility] Last Infusion: 12/22/23 14:28 Dose: Infused Documented By: LEVAR Melatonin (Melatonin 3 Mg Tablet) 6 mg PO BEDTIME PRN PRN Reason: Insomnia Morphine Sulfate (Morphine Sulfate 4 Mg/Ml Cartridge) 2 mg IVPUSH Q4H PRN; Protocol PRN Reason: Pain, Severe (Pain Scale 7-10) Last Admin: 12/22/23 13:48 Dose: 2 mg Documented By: LEVAR Ondansetron HCl (Ondansetron Hcl 4 Mg/2 Ml Vial) 4 mg IVPUSH Q8H PRN PRN Reason: Nausea and Vomiting Sodium Chloride (0.9 % Sodium Chloride Flush 3 Ml Syringe) 3 ml IVFLUSH QSHIFT [facility] Last Admin: 12/22/23 15:05 Dose: Not Given Documented By: LEVAR Non-Admin Reason: IV Running Vitamin D (Cholecalciferol (Vitamin D3) 10 Mcg Tablet) 10 mcg PO DAILY [facility] Last Admin: 12/22/23 09:03 Dose: 10 mcg Documented By: LEVAR Labs 12/20/23 17:14 12/20/23 17:14 Labs: Laboratory Results - last 24 hr 12/21/23 18:15 HIV 1&2 Ab/P24 Ag 4thGn Nonreactive Assessment and Plan (1) Disseminated herpes zoster: Status: Acute Plan This is a 48-year-old female with a PMH significant for Crohn's disease? who presents to the ED for evaluation of painful blistering sores on mouth and around groin. Pt will be admitted to the hospital for treatment and further evaluation of disseminated herpes zoster. disseminated Herpes zoster Likely secondary to Rinvoq use which she started december 03 continue acyclovir IV, likely d/c with valacyclovir 1gm TID x 10-14 days Gabapentin t.i.d. Analgesics for pain management seen by ID Hold Prince Chron's disease Not in acute flare Hold Prince was on prednisone to prevent adrenal issues - ok to resume per ID, will taper Full Code Attending:?Dr. Lopez DVT Prophylaxis: Lovenox Pt will require a hospitalization of at least two nights for treatment of?herpes zoster flare up. Given disseminated nature of patient's flare up, including involvement of the face, and patient's immunocompromised state, she will require hospitalization for the administration of IV antivirals and specialist consultation with Infectious Disease. Quality Stroke Does the patient have a stroke diagnosis?: No VTE Prior VTE?: No VTE Risk Level:: Medical - moderate - high VTE Device Contraindication: Treatment Not Indicated VTE Drug Contraindication: N/A - Med Ordered
[2023-12-22] MEDS: Docusate Sodium 100 MG CAPSULE PO (18:18)
[2023-12-22] MEDS: predniSONE 10 MG TABLET 30 MG PO (18:18)
[2023-12-22 19:57] VITALS: BP 105/60; PULSE 84; RESP 20; TEMP 36.6; O2SAT 97
[2023-12-22] MEDS: oxyCODONE HCl Immed Release 5 MG TABLET PO (21:16)
[2023-12-22] MEDS: Enoxaparin Sodium 40 MG/0.4 ML SYRINGE SUBCUT (21:17)
[2023-12-23] MEDS: Morphine Sulfate 4 MG/ML CARTRIDGE 2 MG IVPUSH ×3 (01:02→20:15)
[2023-12-23 04:00] VITALS: BP 117/56; PULSE 71; RESP 16; TEMP 36.4; O2SAT 100
[2023-12-23 08:00] VITALS: BP 118/68; PULSE 72; RESP 16; TEMP 36.7; O2SAT 99
[2023-12-23] MEDS: Cholecalciferol (Vitamin D3) 10 MCG TABLET PO (08:04)
[2023-12-23] MEDS: Docusate Sodium 100 MG CAPSULE PO ×2 (08:04→20:17)
[2023-12-23] MEDS: Gabapentin 100 MG CAPSULE 200 MG PO ×3 (08:04→20:17)
[2023-12-23] MEDS: Cyanocobalamin (Vitamin B-12) 1,000 MCG TABLET 1000 MCG PO (08:04)
[2023-12-23] MEDS: Lactated Ringers 1,000 ML 100 ML IVCONT ×2 (08:04→14:45)
[2023-12-23] MEDS: predniSONE 10 MG TABLET 30 MG PO (08:04)
--- NOTE | 2023-12-23 15:18 | HO.PM.IMPN ---
Subjective Subjective Date of Service: 12/23/23 Interval History: seen and examined this morning follow up for disseminated herpes zoster no new lesions Review of Systems Review of Systems: Yes all other systems are reviewed and are negative Constitutional Constitutional: Denies chills and Denies fever(s) Cardiovascular Cardiovascular: Denies chest pain, Denies palpitations and Denies dyspnea Respiratory Respiratory: Denies cough and Denies dyspnea Gastrointestinal Gastrointestinal: Denies abdominal pain Endocrine Endocrine: Denies palpitations Physical Exam Vital Signs: Vital Signs: Last Vital Signs Temp 98.1 F 12/23/23 08:00 Pulse 72 12/23/23 08:00 Resp 16 12/23/23 08:00 BP 118/68 12/23/23 08:00 Pulse Ox 99 12/23/23 08:00 O2 Del Method Room Air 12/23/23 08:00 BMI result Body Mass Index 20.6 Const: General: cooperative, comfortable, no acute distress, alert and awake Nutritional Appearance: average body habitus Orientation/consciousness: patient oriented x3 Resp: Effort & Inspection: normal respiratory effort, able to speak in complete sentences, no respiratory distress and no use of accessory muscles Cardio: Rate: regular rate GI: Inspection: No distended Palpation (GI): not soft and nontender : Other: right side pelvic rash - remains similar to admission, see picture admission H&P. no crusting lesions Skin: Other: no new lesions noted, pustular lesions now flat Neuro: General: patient oriented x3, moves all extremities and CN's II-XI intact bilaterally Extrem: General: Yes no pedal edema Objective Data Active Medications Acetaminophen (Acetaminophen 325 Mg Tablet) 650 mg PO Q6H PRN PRN Reason: Pain, Mild (Pain Scale 1-3) Benzonatate (Benzonatate 100 Mg Capsule) 100 mg PO TID PRN PRN Reason: Cough Calamine (Calamine/Zinc Oxide Lotion 177 Ml Bottle) 1 appl TOPICAL QID PRN; Protocol PRN Reason: Pain, Mild (Pain Scale 1-3) Cyanocobalamin (Cyanocobalamin (Vitamin B-12) 1,000 Mcg Tablet) 1,000 mcg PO DAILY [facility] Last Admin: 12/23/23 08:04 Dose: 1,000 mcg Documented By: HERNESTO Docusate Sodium (Docusate Sodium 100 Mg Capsule) 100 mg PO DAILY [facility] Last Admin: 12/23/23 08:04 Dose: 100 mg Documented By: HERNESTO Enoxaparin Sodium (Enoxaparin Sodium 40 Mg/0.4 Ml Syringe) 40 mg SUBCUT Q24H [facility] Last Admin: 12/22/23 21:17 Dose: 40 mg Documented By: RYANN Gabapentin (Gabapentin 100 Mg Capsule) 200 mg PO TID [facility] Last Admin: 12/23/23 14:36 Dose: 200 mg Documented By: HERNESTO Lactated Ringer's (Lr) 1,000 mls @ 100 mls/hr IVCONT .Q10H [facility] Last Admin: 12/23/23 14:45 Dose: 100 mls/hr Documented By: HERNESTO Acyclovir Sodium 545 mg/ (Sodium Chloride) 110.9 mls @ 110.9 mls/hr IV Q8H [facility] Last Infusion: 12/23/23 14:23 Dose: Infused Documented By: HERNESTO Melatonin (Melatonin 3 Mg Tablet) 6 mg PO BEDTIME PRN PRN Reason: Insomnia Morphine Sulfate (Morphine Sulfate 4 Mg/Ml Cartridge) 2 mg IVPUSH Q4H PRN; Protocol PRN Reason: Pain, Severe (Pain Scale 7-10) Last Admin: 12/23/23 01:02 Dose: 2 mg Documented By: RYANN Ondansetron HCl (Ondansetron Hcl 4 Mg/2 Ml Vial) 4 mg IVPUSH Q8H PRN PRN Reason: Nausea and Vomiting Oxycodone HCl (Oxycodone Hcl Immed Release 5 Mg Tablet) 5 mg PO Q6H PRN PRN Reason: Pain, Moderate(Pain Scale 4-6) Last Admin: 12/22/23 21:16 Dose: 5 mg Documented By: RYANN Prednisone (Prednisone 10 Mg Tablet) 30 mg PO DAILY [facility] Last Admin: 12/23/23 08:04 Dose: 30 mg Documented By: HERNESTO Sodium Chloride (0.9 % Sodium Chloride Flush 3 Ml Syringe) 3 ml IVFLUSH QSHIFT [facility] Last Admin: 12/23/23 14:24 Dose: Not Given Documented By: HERNESTO Non-Admin Reason: IV Running Vitamin D (Cholecalciferol (Vitamin D3) 10 Mcg Tablet) 10 mcg PO DAILY [facility] Last Admin: 12/23/23 08:04 Dose: 10 mcg Documented By: HERNESTO Kramer 12/20/23 17:14 12/20/23 17:14 Assessment and Plan (1) Disseminated herpes zoster: Status: Acute Plan This is a 48-year-old female with a PMH significant for Crohn's disease? who presents to the ED for evaluation of painful blistering sores on mouth and around groin. Pt will be admitted to the hospital for treatment and further evaluation of disseminated herpes zoster. disseminated Herpes zoster Likely secondary to Rinvoq use which she started december 03 continue acyclovir IV, likely d/c with valacyclovir 1gm TID x 10-14 days Gabapentin t.i.d. Analgesics for pain management seen by ID Hold Rinvoq Chron's disease Not in acute flare Hold Rinvoq was on prednisone to prevent adrenal issues - ok to resume per ID, will taper will need outpatient follow up with GI Full Code Attending:?Dr. Lopez DVT Prophylaxis: Lovenox Pt will require a hospitalization of at least two nights for treatment of?herpes zoster flare up. Given disseminated nature of patient's flare up, including involvement of the face, and patient's immunocompromised state, she will require hospitalization for the administration of IV antivirals and specialist consultation with Infectious Disease. Quality Stroke Does the patient have a stroke diagnosis?: No VTE Prior VTE?: No VTE Risk Level:: Medical - moderate - high VTE Device Contraindication: Treatment Not Indicated VTE Drug Contraindication: N/A - Med Ordered
[2023-12-23 15:29] VITALS: BP 118/99; PULSE 98; RESP 18; TEMP 36.7; O2SAT 98
[2023-12-23 19:23] VITALS: BP 107/56; PULSE 84; RESP 18; TEMP 36.6; O2SAT 96
[2023-12-23] MEDS: Enoxaparin Sodium 40 MG/0.4 ML SYRINGE SUBCUT (20:18)
[2023-12-23] MEDS: 0.9 % Sodium Chloride Flush 3 ML SYRINGE IVFLUSH (20:25)
[2023-12-24] VITALS (8 sets, daily range): BP systolic 90–110; BP diastolic 53–59; PULSE 63–92; RESP 16–20; TEMP 36.1–36.9; O2SAT 90–99
[2023-12-24] MEDS: Morphine Sulfate 4 MG/ML CARTRIDGE 2 MG IVPUSH ×4 (04:52→22:48)
[2023-12-24] MEDS: polyethylene glycoL 3350 17 GM POWD.PACK PO (09:45)
[2023-12-24] MEDS: Docusate Sodium 100 MG CAPSULE PO (09:49)
[2023-12-24] MEDS: 0.9 % Sodium Chloride Flush 3 ML SYRINGE IVFLUSH ×2 (09:49→13:53)
[2023-12-24] MEDS: Cholecalciferol (Vitamin D3) 10 MCG TABLET PO (09:50)
[2023-12-24] MEDS: Cyanocobalamin (Vitamin B-12) 1,000 MCG TABLET 1000 MCG PO (09:50)
[2023-12-24] MEDS: Gabapentin 100 MG CAPSULE 200 MG PO ×2 (09:50→13:53)
[2023-12-24] MEDS: predniSONE 10 MG TABLET 30 MG PO (09:50)
[2023-12-24] MEDS: ondansetron HCL 4 MG/2 ML VIAL IVPUSH ×2 (09:54→18:31)
[2023-12-24] MEDS: bisacodyL 10 MG SUPP.RECT PR (12:07)
[2023-12-24] MEDS: oxyCODONE HCl Immed Release 5 MG TABLET PO (13:56)
--- NOTE | 2023-12-24 15:21 | HO.PM.IMPN ---
Subjective Subjective Date of Service: 12/24/23 Interval History: seen and examined this morning follow up for disseminated herpez zoster no new lesions feeling constipated Constitutional Constitutional: Denies chills and Denies fever(s) ENT Ears, Nose, Mouth, and Throat: Denies dizziness Cardiovascular Cardiovascular: Denies chest pain, Denies palpitations and Denies dyspnea Respiratory Respiratory: Denies cough and Denies dyspnea Gastrointestinal Gastrointestinal: Reports abdominal pain, Reports constipation, Denies nausea and Denies vomiting Neurologic Neurologic: Denies dizziness Endocrine Endocrine: Denies palpitations Physical Exam Vital Signs: Vital Signs: Last Vital Signs Temp 97.9 F 12/24/23 07:27 Pulse 73 12/24/23 07:27 Resp 19 12/24/23 09:54 BP 96/57 L 12/24/23 07:27 Pulse Ox 99 12/24/23 07:27 O2 Del Method Room Air 12/24/23 07:27 BMI result Body Mass Index 20.6 Const: General: cooperative, comfortable, no acute distress, alert and awake Nutritional Appearance: average body habitus Orientation/consciousness: patient oriented x3 Resp: Effort & Inspection: normal respiratory effort, able to speak in complete sentences, no respiratory distress and no use of accessory muscles Cardio: Rate: regular rate GI: Inspection: No distended Palpation (GI): not soft and nontender : Other: right side pelvic rash - remains similar to admission, see picture admission H&P. no crusting lesions Skin: Other: no new lesions noted, pustular lesions now flat; most lesions starting to dry out Neuro: General: patient oriented x3, moves all extremities and CN's II-XI intact bilaterally Extrem: General: Yes no pedal edema Objective Data Active Medications Acetaminophen (Acetaminophen 325 Mg Tablet) 650 mg PO Q6H PRN PRN Reason: Pain, Mild (Pain Scale 1-3) Benzonatate (Benzonatate 100 Mg Capsule) 100 mg PO TID PRN PRN Reason: Cough Bisacodyl (Bisacodyl 10 Mg Supp.Rect) 10 mg ID DAILY PRN PRN Reason: Constipation Last Admin: 12/24/23 12:07 Dose: 10 mg Documented By: COTEMA Calamine (Calamine/Zinc Oxide Lotion 177 Ml Bottle) 1 appl TOPICAL QID PRN; Protocol PRN Reason: Pain, Mild (Pain Scale 1-3) Cyanocobalamin (Cyanocobalamin (Vitamin B-12) 1,000 Mcg Tablet) 1,000 mcg PO DAILY [facility] Last Admin: 12/24/23 09:50 Dose: 1,000 mcg Documented By: COTEMA Docusate Sodium (Docusate Sodium 100 Mg Capsule) 100 mg PO BID [facility] Last Admin: 12/24/23 09:49 Dose: 100 mg Documented By: COTEMA Enoxaparin Sodium (Enoxaparin Sodium 40 Mg/0.4 Ml Syringe) 40 mg SUBCUT Q24H [facility] Last Admin: 12/23/23 20:18 Dose: 40 mg Documented By: BOURQC Gabapentin (Gabapentin 100 Mg Capsule) 200 mg PO TID [facility] Last Admin: 12/24/23 13:53 Dose: 200 mg Documented By: SHREYA Acyclovir Sodium 545 mg/ (Sodium Chloride) 110.9 mls @ 110.9 mls/hr IV Q8H [facility] Last Admin: 12/24/23 13:52 Dose: 110.9 mls/hr Documented By: PABLITOEMA Melatonin (Melatonin 3 Mg Tablet) 6 mg PO BEDTIME PRN PRN Reason: Insomnia Morphine Sulfate (Morphine Sulfate 4 Mg/Ml Cartridge) 2 mg IVPUSH Q4H PRN; Protocol PRN Reason: Pain, Severe (Pain Scale 7-10) Last Admin: 12/24/23 09:54 Dose: 2 mg Documented By: SHREYA Ondansetron HCl (Ondansetron Hcl 4 Mg/2 Ml Vial) 4 mg IVPUSH Q8H PRN PRN Reason: Nausea and Vomiting Last Admin: 12/24/23 09:54 Dose: 4 mg Documented By: SHREYA Oxycodone HCl (Oxycodone Hcl Immed Release 5 Mg Tablet) 5 mg PO Q6H PRN PRN Reason: Pain, Moderate(Pain Scale 4-6) Last Admin: 12/24/23 13:56 Dose: 5 mg Documented By: SHREYA Polyethylene Glycol (Polyethylene Glycol 3350 17 Gm Powd.Pack) 17 gm PO DAILY PRN PRN Reason: Constipation Prednisone (Prednisone 10 Mg Tablet) 30 mg PO DAILY [facility] Last Admin: 12/24/23 09:50 Dose: 30 mg Documented By: PABLITOEMA Senna (Sennosides 8.6 Mg Tablet) 8.6 mg PO BEDTIME [facility] Sodium Chloride (0.9 % Sodium Chloride Flush 3 Ml Syringe) 3 ml IVFLUSH QSHIFT [facility] Last Admin: 12/24/23 13:53 Dose: 3 ml Documented By: COTEMA Vitamin D (Cholecalciferol (Vitamin D3) 10 Mcg Tablet) 10 mcg PO DAILY [facility] Last Admin: 12/24/23 09:50 Dose: 10 mcg Documented By: COTEMA Labs 12/20/23 17:14 12/20/23 17:14 Assessment and Plan (1) Disseminated herpes zoster: Status: Acute Plan This is a 48-year-old female with a PMH significant for Crohn's disease? who presents to the ED for evaluation of painful blistering sores on mouth and around groin. Pt will be admitted to the hospital for treatment and further evaluation of disseminated herpes zoster. disseminated Herpes zoster Likely secondary to Rinvoq use which she started december 03 continue acyclovir IV, likely d/c with valacyclovir 1gm TID x 10-14 days Gabapentin t.i.d. Analgesics for pain management seen by ID Hold Rinvoq constipation bowel regimen kub pending but less likely obstruction, had small bm this afternoon Chron's disease Not in acute flare Hold Rinvoq was on prednisone to prevent adrenal issues - ok to resume per ID, will taper will need outpatient follow up with GI Full Code Attending:?Dr. Lopez DVT Prophylaxis: Lovenox Pt will require a hospitalization of at least two nights for treatment of?herpes zoster flare up. Given disseminated nature of patient's flare up, including involvement of the face, and patient's immunocompromised state, she will require hospitalization for the administration of IV antivirals and specialist consultation with Infectious Disease. Quality Stroke Does the patient have a stroke diagnosis?: No VTE Prior VTE?: No VTE Risk Level:: Medical - moderate - high VTE Device Contraindication: Treatment Not Indicated VTE Drug Contraindication: N/A - Med Ordered
[2023-12-24] MEDS: Lactulose 20 GM/30 ML SOLUTION PO (16:26)
--- NOTE | 2023-12-24 18:40 | PC.NURSE ---
Patient complaint of abd pain, medicate per NOV. Patient reported no bowel movement since last monday. Patiuent given colace, miralax with no effect. KUB ordered. patient had small rabbit pebble hard stool. Genia HUNT made aware lactulose ordered and given with no effect. soap suds enema ordered and done, patient able to tolerate 500mls.
[2023-12-24] MEDS: Enoxaparin Sodium 40 MG/0.4 ML SYRINGE SUBCUT (21:40)
[2023-12-24] MEDS: Prochlorperazine Edisylate 10 MG/2 ML VIAL 5 MG IVPUSH (22:48)
[2023-12-25 03:38] VITALS: BP 99/63; PULSE 105; RESP 20; TEMP 36.7; O2SAT 96
[2023-12-25] MEDS: ondansetron HCL 4 MG/2 ML VIAL IVPUSH ×2 (04:12→18:02)
[2023-12-25 07:29] VITALS: BP 105/56; PULSE 110; RESP 16; TEMP 37.5; O2SAT 93
--- NOTE | 2023-12-25 09:06 | MHC.CLN ---
Addendum entered by Kerrie Pittman, PETER 12/25/23 14:23: PATIENT NOW NPO PENDING GI CONSULT FOR POSSIBLE SBO. Original Note: F/U DIET=REGULAR. ENSURE CLEAR TID TO INCREASE NUTRITIONAL INTAKE. SUPPLEMENT PROVIDES 720 KCALS, 24 G PROTEIN. INTAKE USUALLY 50-75% OF MEALS. FOLLOW FOR PO INTAKE AND DIET TOLERANCE.
[2023-12-25] MEDS: 0.9 % Sodium Chloride Flush 3 ML SYRINGE IVFLUSH (09:19)
[2023-12-25] MEDS: Cholecalciferol (Vitamin D3) 10 MCG TABLET PO (09:20)
[2023-12-25] MEDS: Cyanocobalamin (Vitamin B-12) 1,000 MCG TABLET 1000 MCG PO (09:20)
[2023-12-25] MEDS: polyethylene glycoL 3350 17 GM POWD.PACK PO (09:20)
[2023-12-25 09:21] VITALS: RESP 19
[2023-12-25] MEDS: Gabapentin 100 MG CAPSULE 200 MG PO (09:21)
[2023-12-25] MEDS: Docusate Sodium 100 MG CAPSULE PO (09:21)
[2023-12-25] MEDS: Prochlorperazine Edisylate 10 MG/2 ML VIAL 5 MG IVPUSH (09:21)
[2023-12-25] MEDS: predniSONE 10 MG TABLET 30 MG PO (09:21)
[2023-12-25] MEDS: Morphine Sulfate 4 MG/ML CARTRIDGE 2 MG IVPUSH ×3 (09:21→19:59)
--- NOTE | 2023-12-25 13:01 | P.PNIM_ITS ---
Subjective Subjective Date of Service: 12/25/23 Interval History: seen and examined this morning follow up for disseminated herpez zoster no new lesions feeling constipated Constitutional Constitutional: Denies chills and Denies fever(s) ENT Ears, Nose, Mouth, and Throat: Denies dizziness Cardiovascular Cardiovascular: Denies chest pain, Denies palpitations and Denies dyspnea Respiratory Respiratory: Denies cough and Denies dyspnea Gastrointestinal Gastrointestinal: Reports abdominal pain, Reports constipation, Denies nausea and Denies vomiting Neurologic Neurologic: Denies dizziness Endocrine Endocrine: Denies palpitations Physical Exam 2 Vital Signs: Vital Signs: Last Vital Signs Temp 99.5 F 12/25/23 07:29 Pulse 110 H 12/25/23 07:29 Resp 19 12/25/23 09:21 BP 105/56 L 12/25/23 07:29 Pulse Ox 93 12/25/23 07:29 O2 Del Method Room Air 12/25/23 07:29 BMI result Body Mass Index 20.6 Objective Data Active Medications Acetaminophen (Acetaminophen 325 Mg Tablet) 650 mg PO Q6H PRN PRN Reason: Pain, Mild (Pain Scale 1-3) Benzonatate (Benzonatate 100 Mg Capsule) 100 mg PO TID PRN PRN Reason: Cough Bisacodyl (Bisacodyl 10 Mg Supp.Rect) 10 mg AL DAILY PRN PRN Reason: Constipation Last Admin: 12/24/23 12:07 Dose: 10 mg Documented By: COTEMA Calamine (Calamine/Zinc Oxide Lotion 177 Ml Bottle) 1 appl TOPICAL QID PRN; Protocol PRN Reason: Pain, Mild (Pain Scale 1-3) Cyanocobalamin (Cyanocobalamin (Vitamin B-12) 1,000 Mcg Tablet) 1,000 mcg PO DAILY [facility] Last Admin: 12/25/23 09:20 Dose: 1,000 mcg Documented By: COTEMA Docusate Sodium (Docusate Sodium 100 Mg Capsule) 100 mg PO BID [facility] Last Admin: 12/25/23 09:21 Dose: 100 mg Documented By: COTEMA Enoxaparin Sodium (Enoxaparin Sodium 40 Mg/0.4 Ml Syringe) 40 mg SUBCUT Q24H [facility] Last Admin: 12/24/23 21:40 Dose: 40 mg Documented By: NATALSA Gabapentin (Gabapentin 100 Mg Capsule) 200 mg PO TID [facility] Last Admin: 12/25/23 09:21 Dose: 200 mg Documented By: SHREYA Acyclovir Sodium 545 mg/ (Sodium Chloride) 110.9 mls @ 110.9 mls/hr IV Q8H [facility] Last Infusion: 12/25/23 06:43 Dose: Infused Documented By: GABBI Melatonin (Melatonin 3 Mg Tablet) 6 mg PO BEDTIME PRN PRN Reason: Insomnia Morphine Sulfate (Morphine Sulfate 4 Mg/Ml Cartridge) 2 mg IVPUSH Q4H PRN; Protocol PRN Reason: Pain, Severe (Pain Scale 7-10) Last Admin: 12/25/23 09:21 Dose: 2 mg Documented By: SHREYA Ondansetron HCl (Ondansetron Hcl 4 Mg/2 Ml Vial) 4 mg IVPUSH Q8H PRN PRN Reason: Nausea and Vomiting Last Admin: 12/25/23 04:12 Dose: 4 mg Documented By: GABBI Oxycodone HCl (Oxycodone Hcl Immed Release 5 Mg Tablet) 5 mg PO Q6H PRN PRN Reason: Pain, Moderate(Pain Scale 4-6) Last Admin: 12/24/23 13:56 Dose: 5 mg Documented By: SHREYA Polyethylene Glycol (Polyethylene Glycol 3350 17 Gm Powd.Pack) 17 gm PO DAILY PRN PRN Reason: Constipation Last Admin: 12/25/23 09:20 Dose: 17 gm Documented By: SHREYA Prednisone (Prednisone 10 Mg Tablet) 30 mg PO DAILY [facility] Last Admin: 12/25/23 09:21 Dose: 30 mg Documented By: SHREYA Prochlorperazine Edisylate (Prochlorperazine Edisylate 10 Mg/2 Ml Vial) 5 mg IVPUSH Q4H PRN PRN Reason: Nausea and Vomiting Last Admin: 12/25/23 09:21 Dose: 5 mg Documented By: SHREYA Senna (Sennosides 8.6 Mg Tablet) 8.6 mg PO BEDTIME [facility] Last Admin: 12/24/23 21:40 Dose: Not Given Documented By: GABBI Non-Admin Reason: Nausea Sodium Chloride (0.9 % Sodium Chloride Flush 3 Ml Syringe) [facility] Last Admin: 12/25/23 09:19 Dose: 3 ml Documented By: COTEMA Vitamin D (Cholecalciferol (Vitamin D3) 10 Mcg Tablet) 10 mcg PO DAILY ALONDRA Last Admin: 12/25/23 09:20 Dose: 10 mcg Documented By: SHREYA Labs 12/20/23 17:14 12/20/23 17:14 Assessment and Plan (1) Disseminated herpes zoster: Status: Acute Plan This is a 48-year-old female with a PMH significant for Crohn's disease? who presents to the ED for evaluation of painful blistering sores on mouth and around groin. Pt will be admitted to the hospital for treatment and further evaluation of disseminated herpes zoster. Abd pain with Constipation, nausea and vomiting kub>? SBO will place NGT continue bowel regimin with enema GI consult, Dr. Auguste NPO, IV fluids Disseminated Herpes zoster Likely secondary to Rinvoq use which she started december 03 continue acyclovir IV, likely d/c with valacyclovir 1gm TID x 10-14 days Gabapentin t.i.d. Analgesics for pain management seen by ID Hold Rinvoq Crohns disease Not in acute flare Hold Prince was on prednisone to prevent adrenal issues - ok to resume per ID, will taper will need outpatient follow up with GI Full Code Attending:?Dr. Lopez DVT Prophylaxis: Lovenox continue hospital stay for treatment of?herpes zoster flare up. Given disseminated nature of patient's flare up, including involvement of the face, and patient's immunocompromised state, she will require hospitalization for the administration of IV antivirals and specialist consultation with Infectious Disease. Quality Stroke Does the patient have a stroke diagnosis?: No VTE Prior VTE?: No VTE Risk Level:: Medical - moderate - high VTE Device Contraindication: Treatment Not Indicated VTE Drug Contraindication: N/A - Med Ordered
[2023-12-25 14:22] VITALS: RESP 18
[2023-12-25] MEDS: Dextrose 5 % and 0.9 % NaCl 1,000 ML 100 ML IVCONT (14:22)
--- NOTE | 2023-12-25 14:55 | MHC.CM.PN ---
per estee suresh pt not medically cleared for dc today dc plan remains home no servies
[2023-12-25 15:36] VITALS: BP 104/59; PULSE 93; RESP 18; TEMP 37; O2SAT 96
--- NOTE | 2023-12-25 17:12 | P.EN_ITS ---
Event Note Date of Service: 12/25/23 Event Note: GI Consult-Full note dictated. History via patient, her RN, and the EMR. 48 yo female with steroid dependent Crohn's of the SI with history of SBO's. She has been on steroids fairly regularly over the course of this year and was recently started on Rinvoq. She had been in recently with severe right hip, buttock, and thigh pain with a negative w/u. Shortly after discharge she developed a shingles rash in the suprapubic/right groin area and on her face near her lip. She has remained on po prednisone and has been off the Rinvoq for > 1 week. She came back in here about 4 days ago and has been on treatment for the shingles. She has developed some increasing constipation with N/V over the past 12-24 hours. Denies any diarrhea or bleeding. A NG tube was passed this afternoon and drained > 200cc. Her abdominal exam presently is soft, with +BS, and with mild diffuse tenderness. Her abdominal xray revealed dilated SI, although she does have relatively chronic changes of this due to the Crohn's. Imp: SBO vs an ileus from a Crohn's stricture, pain meds, and/or adhesions. She seems better after placement of NG tube. Rec: Continue current plan and meds with prednisone, NG tube, IV PPI, etc. Recheck xray and labs in AM. Surgical consult. If the xray looks worse and/or symptoms persist she may need IV steroids, but I would recommend clearing that with ID 1st due to the shingles. If the xray looks improved then could look to D/C NG tube, start full liquids, continue po prednisone, and maintain a good bowel regimen with some Miralax/minimizing pain meds/enema prn, etc.. I do wonder if her severe right buttock, hip, and thigh pain last week was a prodrome of the shingles. Will need ID guidance as to when she could potentially start a biologic agent in regard to the Crohn's. She will need to F/U with her primary GI at [place] and consider referral to a tertiary Crohn's center in [place]. D/W patient in detail. Thanks Time Spent With Patient Time: Total time managing care of this patient today ____ minutes.
[2023-12-25] MEDS: Pantoprazole Sodium 40 MG/10 ML VIAL IVPUSH (17:56)
[2023-12-25 19:52] VITALS: BP 110/61; PULSE 79; RESP 18; TEMP 36.9; O2SAT 98
[2023-12-25] MEDS: Enoxaparin Sodium 40 MG/0.4 ML SYRINGE SUBCUT (19:58)
[2023-12-26] MEDS: Morphine Sulfate 4 MG/ML CARTRIDGE 2 MG IVPUSH ×2 (00:18→12:48)
--- NOTE | 2023-12-26 01:09 | CONS_ITS ---
DATE OF SERVICE: 12/25/2023 REASON FOR CONSULTATION: History of Crohn disease and possible small bowel obstruction. History has been obtained from the patient, her RN, and the medical record. HISTORY OF PRESENT ILLNESS: The patient is a 48-year-old female, well known to me from multiple admissions over the past 2-3 months for Crohn disease. The patient was last hospitalized here on December 13 and discharged on December 16. That hospitalization was notable for some fairly severe pain along the right buttock, right hip, and right thigh. Workup for that was negative including MRI of the hip to rule out avascular necrosis. No definitive etiology for that was found, and she did have other workup including MRI of the lumbosacral spine and a neurology consult. In any event, prior to that admission, she had been started on Rinvoq for the Crohn disease. She had previously been on Humira injections since early September. She has had multiple hospitalizations here over the course of the past few months with imaging studies including CT scans describing at least partial small-bowel obstructions. She also had some abdominal distention and abdominal pain along with those abnormal imaging studies. She was treated with IV steroids and was routinely sent home on oral prednisone. She was started on Rinvoq on December 03. She developed fairly prompt symptoms of feeling poorly, having some diarrhea with bleeding, and the above described pain in the right hip, buttock, and thigh. She was also having some fevers and chills at home. When she was admitted here last week, there was actually no sign of active Crohn disease based on her history and she was maintained on oral prednisone. She describes that shortly after discharge here on December 16, she developed the rash in the suprapubic and right groin area consistent with shingles, as well as some associated rash on her face near the lip. She has been seen in consultation by Dr. Limon from Infectious Disease who agrees with that diagnosis and she has been on medication for that since admission. Over at least the past 24 hours since being admitted on December 19, she developed some nausea, vomiting, constipation, and some abdominal discomfort. She vomited a fairly large amount, but without any sign of bleeding. A nasogastric tube was placed which yielded about 200 cc of fluid. Again, there was no bleeding. She does report that she feels better with the NG tube in. She feels less distended and less uncomfortable. She has not had any diarrhea nor rectal bleeding here. She has had only small hard stools. Of note, she has remained off Rinvoq since prior to her last hospitalization. Her present medications include acetaminophen, IV acyclovir, vitamin D, vitamin B, Colace, Lovenox, gabapentin, lactulose p.r.n., melatonin, morphine p.r.n., Zofran, oxycodone p.r.n., MiraLAX p.r.n., prednisone 30 mg daily, prochlorperazine p.r.n. for nausea, and Senokot at bedtime. PAST MEDICAL HISTORY: Crohn disease of the small bowel diagnosed in 2021 at [facility] and followed primarily by Jamal Flowers, physician membership assistant. She denies history of diabetes, heart disease, stroke, or lung disease. She denies any significant surgeries. She has had no other medical problems. SOCIAL HISTORY: She stopped smoking earlier this year. She does not use any alcohol. 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 She is a . FAMILY HISTORY: A cousin has Crohn disease and her mother had colon cancer. REVIEW OF SYSTEMS: CONSTITUTIONAL: She has been feeling somewhat poorly due to the painful shingles rash. CARDIAC: No chest pain. PULMONARY: No cough, no hemoptysis. GI: As above. URINARY: No dysuria, no hematuria. NEUROLOGIC: No headache or seizures. PHYSICAL EXAMINATION: GENERAL: The patient is a pleasant, alert, cooperative female. SKIN: Warm and dry. NECK: Supple. CHEST: Clear. CARDIAC: Normal S1, S2. ABDOMEN: Soft, nondistended, with normal bowel sounds. She does have some mild diffuse tenderness but without mass or rebound. LABORATORY DATA: Her abdominal x-ray from yesterday describes some moderate to large stool burden in the right colon and small to moderate stool burden in the left colon, as well as some persistent distention of the small bowel loops in the central abdomen, which appeared similar to a recent CT scan. There was no sign of any definitive bowel obstruction or free air. Her most recent labs from December 19 revealed a white blood cell count of 7.6, hemoglobin 10.8, platelets 497,000. Normal electrolytes, BUN 18, creatinine 0.6. Normal LFTs except for an ALT of 45. Albumin was 3.5. Lipase was 20. IMPRESSION: At this point, the patient does appear to have a possible component of at least a small bowel ileus, if not a component of a small bowel obstruction. Given her long-standing Crohn disease, this may be related to either a small-bowel stricture or adhesions. She may also have an ileus in relation to her current illness of the shingles, relative immobility, and pain medication. She does seem to be improved after placement of her NG tube. At this point, I would continue the current plan with the NG tube, oral prednisone, and start her on IV PPI. I would recheck her abdominal x-ray in the morning, as well as laboratories. I will also place a surgical consult such that if she does not improve, then she might need surgical intervention. If her x-ray looks worse and/or the symptoms persist with vomiting, and abdominal distention, she may need IV steroids, but I would recommend that be cleared first by Dr. Limon from Infectious Disease due to the associated shingles. However, if the x-ray looks improved then hopefully the NG tube could be discontinued in the near future, and she can start some full liquids. She should also continue p.o. prednisone at that point. It will be important to maintain a good bowel regimen as well including MiraLAX and enemas p.r.n., as well as trying to minimize any pain medication. Of note, I do wonder if the recent severe pain in the right hip, buttock, and thigh when she was hospitalized last week was from the prodrome of shingles. She most likely will need Infectious Disease followup and guidance as to when she could potentially start a biologic agent in regard to the Crohn's disease. She will need to follow up closely with her primary GI at [place] and I would strongly consider referral to a tertiary Crohn's Center in [place] for help in this regard as well. This has been discussed with the patient in detail. Thank you for the consultation. MD JOSELYN Tsang/ROMEO / [phone] ISIAH
[2023-12-26 03:30] VITALS: BP 91/50; PULSE 63; RESP 18; TEMP 36.1; O2SAT 97
[2023-12-26] MEDS: Dextrose 5 % and 0.9 % NaCl 1,000 ML 100 ML IVCONT ×2 (04:23→16:21)
[2023-12-26] MEDS: Pantoprazole Sodium 40 MG/10 ML VIAL IVPUSH ×2 (05:55→16:19)
[2023-12-26 07:18] LABS: Basophils Percent Auto 0.3 % (0-2); Eosinophils Percent Auto 0.2 % (0-4); Hematocrit 25.7 % (37.0-47.0); Hemoglobin 8.4 g/dl (12.0-16.0); Imm Gran Abs Auto 0.04 X10*3/uL (0.00-0.03); Imm Gran Pct Auto 0.3 % (0.0-0.4); Lymphocytes Absolute Auto 5.3 X10*3/uL (1.2-4.9); MANUAL DIFF FLAG SCAN; Mean Corpuscular HGB Conc 32.7 g/dl (31.0-35.0); Mean Corpuscular Volume 91.8 fL (80.0-98.0); Mean Platelet Volume 9.1 fL (9.4-12.3); Monocytes Absolute Auto 0.6 X10*3/uL (0.1-1.2); Monocytes Percent Auto 5.1 % (2-11); Neutrophils Absolute Auto 5.5 x10*3/uL (2.0-8.3); Neutrophils Percent Auto 48.1 % (45-73); Platelet Count 339 X10*3/uL (160-400); Red Cell Distribution Width 15.9 % (11.0-16.0); SCAN SMEAR FLAG 1; White Blood Count 11.5 X10*3/uL (4.8-10.8)
[2023-12-26 07:31] VITALS: BP 111/62; PULSE 75; RESP 16; TEMP 36.9; O2SAT 92
[2023-12-26 07:40] LABS: SLIDE REVIEW VERIFIED
--- NOTE | 2023-12-26 07:55 | HO.PM.IMPN ---
Subjective Subjective Date of Service: 12/26/23 Interval History: seen and examined this morning follow up for disseminated herpes zoster no new lesions NGT in place Constitutional Constitutional: Denies chills and Denies fever(s) ENT Ears, Nose, Mouth, and Throat: Denies dizziness Cardiovascular Cardiovascular: Denies chest pain, Denies palpitations and Denies dyspnea Respiratory Respiratory: Denies cough and Denies dyspnea Gastrointestinal Gastrointestinal: Reports abdominal pain, Reports constipation, Denies nausea and Denies vomiting Neurologic Neurologic: Denies dizziness Endocrine Endocrine: Denies palpitations Physical Exam Vital Signs: Vital Signs: Last Vital Signs Temp 98.5 F 12/26/23 07:31 Pulse 75 12/26/23 07:31 Resp 16 12/26/23 07:31 BP 111/62 12/26/23 07:31 Pulse Ox 92 12/26/23 07:31 O2 Del Method Room Air 12/26/23 07:31 BMI result Body Mass Index 20.6 Appearing in no acute distress lung sounds are clear to auscultation heart regular rate rhythm, clear S1, S2 positive bowel sounds, abdomen is soft, nontender neuro patient is alert x3, no focal deficits Objective Data Active Medications Acetaminophen (Acetaminophen 325 Mg Tablet) 650 mg PO Q6H PRN PRN Reason: Pain, Mild (Pain Scale 1-3) Benzonatate (Benzonatate 100 Mg Capsule) 100 mg PO TID PRN PRN Reason: Cough Bisacodyl (Bisacodyl 10 Mg Supp.Rect) 10 mg WI DAILY PRN PRN Reason: Constipation Last Admin: 12/24/23 12:07 Dose: 10 mg Documented By: SHREYA Calamine (Calamine/Zinc Oxide Lotion 177 Ml Bottle) 1 appl TOPICAL QID PRN; Protocol PRN Reason: Pain, Mild (Pain Scale 1-3) Cyanocobalamin (Cyanocobalamin (Vitamin B-12) 1,000 Mcg Tablet) 1,000 mcg PO DAILY [facility] Last Admin: 12/25/23 09:20 Dose: 1,000 mcg Documented By: SHREYA Docusate Sodium (Docusate Sodium 100 Mg Capsule) 100 mg PO BID [facility] Last Admin: 12/25/23 20:03 Dose: Not Given Documented By: EDDIERISSam Non-Admin Reason: NPO Enoxaparin Sodium (Enoxaparin Sodium 40 Mg/0.4 Ml Syringe) 40 mg SUBCUT Q24H [facility] Last Admin: 12/25/23 19:58 Dose: 40 mg Documented By: ELISHA Gabapentin (Gabapentin 100 Mg Capsule) 200 mg PO TID [facility] Last Admin: 12/25/23 20:03 Dose: Not Given Documented By: ELISHA Non-Admin Reason: NPO Acyclovir Sodium 545 mg/ (Sodium Chloride) 110.9 mls @ 110.9 mls/hr IV Q8H [facility] Last Infusion: 12/26/23 05:31 Dose: Infused Documented By: ELISHA Dextrose/Sodium Chloride (D5ns) 1,000 mls @ 100 mls/hr IVCONT .Q10H [facility] Last Admin: 12/26/23 04:23 Dose: 100 mls/hr Documented By: ELISHA Melatonin (Melatonin 3 Mg Tablet) 6 mg PO BEDTIME PRN PRN Reason: Insomnia Morphine Sulfate (Morphine Sulfate 4 Mg/Ml Cartridge) 2 mg IVPUSH Q4H PRN; Protocol PRN Reason: Pain, Severe (Pain Scale 7-10) Last Admin: 12/26/23 00:18 Dose: 2 mg Documented By: ELISHA Ondansetron HCl (Ondansetron Hcl 4 Mg/2 Ml Vial) 4 mg IVPUSH Q8H PRN PRN Reason: Nausea and Vomiting Last Admin: 12/25/23 18:02 Dose: 4 mg Documented By: COTEMA Oxycodone HCl (Oxycodone Hcl Immed Release 5 Mg Tablet) 5 mg PO Q6H PRN PRN Reason: Pain, Moderate(Pain Scale 4-6) Last Admin: 12/24/23 13:56 Dose: 5 mg Documented By: COTREINIER Pantoprazole Sodium (Pantoprazole Sodium 40 Mg/10 Ml Vial) 40 mg IVPUSH BID@0630,1630 [facility] Last Admin: 12/26/23 05:55 Dose: 40 mg Documented By: ELISHA Polyethylene Glycol (Polyethylene Glycol 3350 17 Gm Powd.Pack) 17 gm PO DAILY PRN PRN Reason: Constipation Last Admin: 12/25/23 09:20 Dose: 17 gm Documented By: COTEMA Prednisone (Prednisone 10 Mg Tablet) 30 mg PO DAILY [facility] Last Admin: 12/25/23 09:21 Dose: 30 mg Documented By: SHREYA Prochlorperazine Edisylate (Prochlorperazine Edisylate 10 Mg/2 Ml Vial) 5 mg IVPUSH Q4H PRN PRN Reason: Nausea and Vomiting Last Admin: 12/25/23 09:21 Dose: 5 mg Documented By: SHREYA Senna (Sennosides 8.6 Mg Tablet) 8.6 mg PO BEDTIME [facility] Last Admin: 12/25/23 20:03 Dose: Not Given Documented By: EDDIERISSam Non-Admin Reason: NPO Sodium Chloride (0.9 % Sodium Chloride Flush 3 Ml Syringe) 3 ml IVFLUSH QSHIFT [facility] Last Admin: 12/26/23 07:09 Dose: Not Given Documented By: BECKI Non-Admin Reason: IV Running Vitamin D (Cholecalciferol (Vitamin D3) 10 Mcg Tablet) 10 mcg PO DAILY [facility] Last Admin: 12/25/23 09:20 Dose: 10 mcg Documented By: SHREYA Labs 12/26/23 05:46 12/26/23 05:46 Labs: Laboratory Results - last 24 hr 12/26/23 05:46 MCV 91.8 MCH 30.0 MCHC 32.7 RDW 15.9 Plt Count 339 D MPV 9.1 L Immature Gran % (Auto) 0.3 Neut % (Auto) 48.1 Lymph % (Auto) 46.0 H Hayes % (Auto) 5.1 Eos % (Auto) 0.2 Baso % (Auto) 0.3 Lymph # (Auto) 5.3 H Hayes # (Auto) 0.6 Eos # (Auto) 0.0 Baso # (Auto) 0.0 Abs Immat Gran (auto) 0.04 H Absolute Neuts (auto) 5.5 Absolute Nucleated RBC 0.000 Nucleated RBC % (auto) 0.0 Smear Tech's Comments VERIFIED Assessment and Plan (1) Disseminated herpes zoster: Status: Acute Plan This is a 48-year-old female with a PMH significant for Crohn's disease? who presents to the ED for evaluation of painful blistering sores on mouth and around groin. Pt will be admitted to the hospital for treatment and further evaluation of disseminated herpes zoster. Abd pain with Constipation, nausea and vomiting likely SBO vs ileus NGT removed today continue bowel regimin with enema GI consult, Dr. Auguste> repeat KUB (better) , continue current management IV PPI and bowel reg advance diet to clears Disseminated Herpes zoster crusted over Likely secondary to Rinvoq use which she started december 03 continue acyclovir IV, likely d/c with valacyclovir 1gm TID x 10-14 days Gabapentin t.i.d. Analgesics for pain management, patient feeling better seen by ID Hold Rinvoq Crohns disease Not in acute flare Hold Rinvoq on prednisone will need outpatient follow up with GI Full Code Attending:?Dr. Lopez DVT Prophylaxis: Lovenox continue hospital stay for treatment of?herpes zoster flare up. Given disseminated nature of patient's flare up, including involvement of the face, and patient's immunocompromised state, she will require hospitalization for the administration of IV antivirals and specialist consultation with Infectious Disease. Quality Stroke Does the patient have a stroke diagnosis?: No VTE Prior VTE?: No VTE Risk Level:: Medical - moderate - high VTE Device Contraindication: Treatment Not Indicated VTE Drug Contraindication: N/A - Med Ordered
[2023-12-26 08:00] LABS: Alanine Aminotransferase 11 U/L (0-31); Albumin Level 2.9 g/dL (3.5-5.0); Alkaline Phosphatase 44 U/L (39-117); Anion Gap 9 (12-20); Aspartate Amino Transferase 9 U/L (5-31); Bilirubin Direct 0.1 mg/dL (0.0-0.5); Bilirubin Total 0.3 mg/dL (0.0-1.0); Blood Urea Nitrogen 13 mg/dL (9-16); Calcium 8.7 mg/dL (8.4-10.2); Carbon Dioxide 31 mmol/L (22-29); Chloride 103 mmol/L (96-108); Creatinine Clr Calc Pharmacy 85.6; Estimated Glomerular Filt Rate > 60; Glucose Fasting 78 mg/dL (60-99); Potassium 3.7 mmol/L (3.3-5.1); Sodium 139 mmol/L (135-145); Total Protein 5.2 g/dL (6.5-8.0)
--- NOTE | 2023-12-26 10:49 | PM.CNGS ---
History of Present Illness Consult details Consult date: 12/26/23 Requesting physician: Lukasz Auguste Narrative: 48 yo female with steroid dependent Crohn's of the SI with history of multiple SBO's admitted for herpes zoster. She has been on steroids fairly regularly over the course of this year and was recently started on Rinvoq. She had been in recently with severe right hip, buttock, and thigh pain with a negative work up. Shortly after discharge she developed a shingles rash in the suprapubic/right groin area and on her face near her lip. She has remained on po prednisone and has been off the Rinvoq for > 1 week. She was admitted here and on treatment for the shingles. She has developed some increasing constipation with N/V over the past day. Denies any diarrhea or bleeding. AXR showed dilated bowel loops. An NG tube was inserted. NGT output has decreased but has had over 100cc output since this morning. She reports mild tenderness this morning and has begun passing flatus. Repeat AXR shows interval decrease in SB dilatation. She is tearful, very frustrated and wants the NGT out. Review of Systems Constitutional: Constitutional: Denies chills and Denies fever(s) ENT: Denies dizziness Cardiovascular: Cardiovascular: Denies dyspnea Respiratory: Respiratory: Denies dyspnea Gastrointestinal: Gastrointestinal: Reports as per HPI Integumentary/Breasts: Skin/Breast: Reports rash Neurologic: Denies dizziness PMFSH Past Medical History Medical History Crohn disease Crohn's disease Depression Family History Family history: reviewed and not pertinent Social History Social History Household Members: Family Household Members Other:: father grandma Housing: House Do you presently have visiting nurse or other home services: No Alcohol intake: never Comment: pt refuses alarms Patient Tobacco Use Status: Former Tobacco user Quit Date: Tobacco use type: Cigarette Cigarette Packs Per Day: 0.5 Cigarettes Per Day: 2 Years Smoked: 3 months ago e-Cigarette/Vaping Use: Currently Using Second Hand Smoke Exposure: No Advance Directives Date on File: 07/04/23 service: No Meds Allergies Allergy/AdvReac Type Severity Reaction Status Date / Time No Known Allergies Allergy Verified 12/20/23 10:57 [No Known Allergies*] Active Medications: Current Medications Acetaminophen (Acetaminophen 325 Mg Tablet) 650 mg PO Q6H PRN PRN Reason: Pain, Mild (Pain Scale 1-3) Benzonatate (Benzonatate 100 Mg Capsule) 100 mg PO TID PRN PRN Reason: Cough Bisacodyl (Bisacodyl 10 Mg Supp.Rect) 10 mg ID DAILY PRN PRN Reason: Constipation Last Admin: 12/24/23 12:07 Dose: 10 mg Calamine (Calamine/Zinc Oxide Lotion 177 Ml Bottle) 1 appl TOPICAL QID PRN; Protocol PRN Reason: Pain, Mild (Pain Scale 1-3) Cyanocobalamin (Cyanocobalamin (Vitamin B-12) 1,000 Mcg Tablet) 1,000 mcg PO DAILY [facility] Last Admin: 12/26/23 08:33 Dose: Not Given Docusate Sodium (Docusate Sodium 100 Mg Capsule) 100 mg PO BID [facility] Last Admin: 12/26/23 08:33 Dose: Not Given Enoxaparin Sodium (Enoxaparin Sodium 40 Mg/0.4 Ml Syringe) 40 mg SUBCUT Q24H [facility] Last Admin: 12/25/23 19:58 Dose: 40 mg Gabapentin (Gabapentin 100 Mg Capsule) 200 mg PO TID [facility] Last Admin: 12/26/23 08:33 Dose: Not Given Acyclovir Sodium 545 mg/ (Sodium Chloride) 110.9 mls @ 110.9 mls/hr IV Q8H [facility] Last Infusion: 12/26/23 05:31 Dose: Infused Dextrose/Sodium Chloride (D5ns) 1,000 mls @ 100 mls/hr IVCONT .Q10H [facility] Last Admin: 12/26/23 04:23 Dose: 100 mls/hr Melatonin (Melatonin 3 Mg Tablet) 6 mg PO BEDTIME PRN PRN Reason: Insomnia Morphine Sulfate (Morphine Sulfate 4 Mg/Ml Cartridge) 2 mg IVPUSH Q4H PRN; Protocol PRN Reason: Pain, Severe (Pain Scale 7-10) Last Admin: 12/26/23 00:18 Dose: 2 mg Ondansetron HCl (Ondansetron Hcl 4 Mg/2 Ml Vial) 4 mg IVPUSH Q8H PRN PRN Reason: Nausea and Vomiting Last Admin: 12/25/23 18:02 Dose: 4 mg Oxycodone HCl (Oxycodone Hcl Immed Release 5 Mg Tablet) 5 mg PO Q6H PRN PRN Reason: Pain, Moderate(Pain Scale 4-6) Last Admin: 12/24/23 13:56 Dose: 5 mg Pantoprazole Sodium (Pantoprazole Sodium 40 Mg/10 Ml Vial) 40 mg IVPUSH BID@0630,1630 [facility] Last Admin: 12/26/23 05:55 Dose: 40 mg Polyethylene Glycol (Polyethylene Glycol 3350 17 Gm Powd.Pack) 17 gm PO DAILY PRN PRN Reason: Constipation Last Admin: 12/25/23 09:20 Dose: 17 gm Prednisone (Prednisone 10 Mg Tablet) 30 mg PO DAILY [facility] Last Admin: 12/26/23 08:33 Dose: Not Given Prochlorperazine Edisylate (Prochlorperazine Edisylate 10 Mg/2 Ml Vial) 5 mg IVPUSH Q4H PRN PRN Reason: Nausea and Vomiting Last Admin: 12/25/23 09:21 Dose: 5 mg Senna (Sennosides 8.6 Mg Tablet) 8.6 mg PO BEDTIME [facility] Last Admin: 12/25/23 20:03 Dose: Not Given Sodium Chloride (0.9 % Sodium Chloride Flush 3 Ml Syringe) [address] [facility] Last Admin: 12/26/23 07:09 Dose: Not Given Vitamin D (Cholecalciferol (Vitamin D3) 10 Mcg Tablet) 10 mcg PO DAILY [facility] Last Admin: 12/26/23 08:33 Dose: Not Given Home Medications ?Medication ?Instructions ?Recorded ?Confirmed ?Last Taken ?Type acetaminophen 325 mg tablet 650 mg PO QID PRN Pain 11/01/23 12/20/23 Unknown History ascorbic acid (vitamin C) 100 mg 100 mg PO DAILY 11/01/23 12/20/23 12/13/23 History tablet (Vitamin C) cholecalciferol (vitamin D3) 10 10 mcg PO DAILY 11/01/23 12/20/23 12/13/23 History mcg (400 unit) tablet (Vitamin D3) cyanocobalamin (vitamin B-12) 1,000 mcg PO DAILY 11/01/23 12/20/23 12/13/23 History 1,000 mcg tablet calcium carbonate 600 mg calcium 600 mg PO DAILY 12/14/23 12/20/23 12/13/23 History (1,500 mg) tablet (Calcium) upadacitinib 45 mg tablet,extended 45 mg PO DAILY 12/14/23 12/20/23 12/13/23 History release 24 hr (Rinvoq) Physical Exam Vital Signs: Vital Signs: Last Vital Signs Temp 98.5 F 12/26/23 07:31 Pulse 75 12/26/23 07:31 Resp 16 12/26/23 07:31 BP 111/62 12/26/23 07:31 Pulse Ox 92 12/26/23 07:31 O2 Del Method Room Air 12/26/23 07:31 BMI result Body Mass Index 20.6 Const: General: no acute distress and alert Orientation/consciousness: patient oriented x3 Resp: Effort & Inspection: normal respiratory effort GI: Inspection: Yes distended (very mildly ) Palpation (GI): Soft to palpation, Tenderness to palpation present (GI) (very mild upper abdominal, epigastric), no guarding and not rigid Skin: Other: suprapubic, right hip rash Neuro: General: patient oriented x3 Results Labs 12/26/23 05:46 12/26/23 05:46 Labs: Abnormal lab results 12/26/23 Range/Units 05:46 WBC 11.5 H (4.8-10.8) X10*3/uL RBC 2.80 L D (4.20-5.50) X10*6/uL Hgb 8.4 L D (12.0-16.0) g/dl Hct 25.7 L (37.0-47.0) % MPV 9.1 L (9.4-12.3) fL Lymph % (Auto) 46.0 H (20-40) % Lymph # (Auto) 5.3 H (1.2-4.9) X10*3/uL Abs Immat Gran (auto) 0.04 H (0.00-0.03) X10*3/uL Carbon Dioxide 31 H (22-29) mmol/L Anion Gap 9 L (12-20) Total Protein 5.2 L (6.5-8.0) g/dL Albumin 2.9 L (3.5-5.0) g/dL Short CBC 12/26/23 Range/Units 05:46 WBC 11.5 H (4.8-10.8) X10*3/uL Hgb 8.4 L D (12.0-16.0) g/dl Hct 25.7 L (37.0-47.0) % Plt Count 339 D (160-400) X10*3/uL BMP 12/26/23 05:46 Sodium 139 Potassium 3.7 Chloride 103 Carbon Dioxide 31 H BUN 13 Creatinine 0.69 Calcium 8.7 Liver Function 12/26/23 Range/Units 05:46 Total Bilirubin 0.3 (0.0-1.0) mg/dL Direct Bilirubin 0.1 (0.0-0.5) mg/dL AST 9 (5-31) U/L ALT 11 (0-31) U/L Alkaline Phosphatase 44 (39-117) U/L Albumin 2.9 L (3.5-5.0) g/dL Urine 12/20/23 Range/Units 21:27 Urine Color Yellow Urine Appearance Clear Urine pH 8.0 (5.0-9.0) Ur Specific [place] 1.020 (1.005-1.025) Urine Protein Negative (Neg-Trace) mg/dL Urine Glucose (UA) Negative (Negative) mg/dL All other labs normal. Imaging Abdominal x-ray: report reviewed and image reviewed Assessment and Plan (1) Crohns disease of small intestine: Status: Acute Plan 48 yo female with steroid dependent Crohn's of the SI with history of multiple SBO's admitted for herpes zoster who developed abdominal pain, nausea/vomiting, obstipation with AXR showing dilated small bowel loops consistent with SBO likely due to Crohn's flare. Abd benign this morning and softly distended with mild upper abd tenderness. NGT output decreasing, nonbilious. AXR today shows improvement in dilatation but still with dilated SB loops. Will therefore clamp NGT, reassess. If residual <100cc and remains asymptomatic can remove NGT and advance diet to clear liquids. Procedures Date of Service Date of Service: 12/26/23
--- NOTE | 2023-12-26 13:40 | PC.NURSE ---
NG tube clamped by Krystyna HUNT @ 1030, instructed to keep clamped for 2 hours and then restart suction, NG tube was placed back to suction at 1230 with very little amount of clear output. PA made aware and instructed to remove NGT. NGT out @ 1315 and patient started on a clear liquid diet, pt tolerated well.
--- NOTE | 2023-12-26 14:27 | P.CDIM_ITS ---
PROVIDER RESPONSE TEXT: To clarify, the appropriate diagnosis supported by the clinical indicators: Underweight QUERY TEXT: PHYSICIAN'S DOCUMENTATION REQUEST Date of Query: 12/26/2023 12:29 PM EDT Patient Name: Nuvia Earl Admit Date: 12/20/2023 Dear Emelyn Christina, A review of the medical record indicates additional documentation may be needed. Please review below and update the documentation accordingly. Clinical Indicators: Clinical nutrition notes 12/21 - significant weight loss x 6 months due to Crohn's disease BMI 20.6 54.43kg Adding Ensure clear TID to increase nutritional intake. Follow for PO intake and diet tolerance. If possible, please provide an associated diagnosis related to the abnormal BMI, such as: Underweight Weight loss Other Other (explain) Clinically unable to determine (explain) Thank you, Latrice Garcia, CCS, CDIS Use of terms such as suspected, likely, concern for, or probable (associated with a specific diagnosi s that is being evaluated, monitored, or treated as if it exists) are acceptable and can be coded in the inpatient se tting, when documented at the time of discharge. Please use your independent medical judgment in providing your response. THIS QUERY IS PART OF THE PERMANENT MEDICAL RECORD
[2023-12-26 15:39] VITALS: BP 109/68; PULSE 86; RESP 18; TEMP 36.9; O2SAT 97
[2023-12-26] MEDS: Gabapentin 100 MG CAPSULE 200 MG PO ×2 (16:19→20:29)
[2023-12-26] MEDS: Morphine Sulfate 2 MG/ML CARTRIDGE IVPUSH (18:25)
[2023-12-26 19:31] VITALS: BP 101/60; PULSE 93; RESP 18; TEMP 36.6; O2SAT 93
[2023-12-26] MEDS: Enoxaparin Sodium 40 MG/0.4 ML SYRINGE SUBCUT (20:28)
[2023-12-26] MEDS: 0.9 % Sodium Chloride Flush 3 ML SYRINGE IVFLUSH (20:29)
[2023-12-26] MEDS: Docusate Sodium 100 MG CAPSULE PO (20:29)
[2023-12-26] MEDS: Sennosides 8.6 MG TABLET PO (20:29)
[2023-12-27 04:00] VITALS: BP 108/61; PULSE 77; RESP 16; TEMP 36.2; O2SAT 100
[2023-12-27] MEDS: Morphine Sulfate 2 MG/ML CARTRIDGE IVPUSH ×3 (04:45→19:57)
[2023-12-27] MEDS: Pantoprazole Sodium 40 MG/10 ML VIAL IVPUSH ×2 (05:33→17:15)
[2023-12-27 07:30] VITALS: BP 129/79; PULSE 80; RESP 14; TEMP 37; O2SAT 96
--- NOTE | 2023-12-27 08:47 | HO.PM.IMPN ---
Subjective Subjective Date of Service: 12/27/23 Interval History: seen and examined this morning follow up for disseminated herpes zoster no new lesions NGT out Constitutional Constitutional: Denies chills and Denies fever(s) ENT Ears, Nose, Mouth, and Throat: Denies dizziness Cardiovascular Cardiovascular: Denies chest pain, Denies palpitations and Denies dyspnea Respiratory Respiratory: Denies cough and Denies dyspnea Gastrointestinal Gastrointestinal: Reports abdominal pain, Reports constipation, Denies nausea and Denies vomiting Neurologic Neurologic: Denies dizziness Endocrine Endocrine: Denies palpitations Physical Exam Vital Signs: Vital Signs: Last Vital Signs Temp 98.6 F 12/27/23 07:30 Pulse 80 12/27/23 07:30 Resp 14 12/27/23 07:30 BP 129/79 12/27/23 07:30 Pulse Ox 96 12/27/23 07:30 O2 Del Method Room Air 12/27/23 07:30 BMI result Body Mass Index 20.6 Appearing in no acute distress lung sounds are clear to auscultation heart regular rate rhythm, clear S1, S2 positive bowel sounds, mildly distended neuro patient is alert x3, no focal deficits Objective Data Active Medications Acetaminophen (Acetaminophen 325 Mg Tablet) 650 mg PO Q6H PRN PRN Reason: Pain, Mild (Pain Scale 1-3) Benzonatate (Benzonatate 100 Mg Capsule) 100 mg PO TID PRN PRN Reason: Cough Bisacodyl (Bisacodyl 10 Mg Supp.Rect) 10 mg [place] DAILY PRN PRN Reason: Constipation Last Admin: 12/24/23 12:07 Dose: 10 mg Documented By: COTREINIER Calamine (Calamine/Zinc Oxide Lotion 177 Ml Bottle) 1 appl TOPICAL QID PRN; Protocol PRN Reason: Pain, Mild (Pain Scale 1-3) Cyanocobalamin (Cyanocobalamin (Vitamin B-12) 1,000 Mcg Tablet) 1,000 mcg PO DAILY [facility] Last Admin: 12/26/23 08:33 Dose: Not Given Documented By: BECKI Non-Admin Reason: NPO Docusate Sodium (Docusate Sodium 100 Mg Capsule) 100 mg PO BID [facility] Last Admin: 12/26/23 20:29 Dose: 100 mg Documented By: ELISHA Enoxaparin Sodium (Enoxaparin Sodium 40 Mg/0.4 Ml Syringe) 40 mg SUBCUT Q24H [facility] Last Admin: 12/26/23 20:28 Dose: 40 mg Documented By: ELISHA Gabapentin (Gabapentin 100 Mg Capsule) 200 mg PO TID [facility] Last Admin: 12/26/23 20:29 Dose: 200 mg Documented By: ELISHA Acyclovir Sodium 545 mg/ (Sodium Chloride) 110.9 mls @ 110.9 mls/hr IV Q8H [facility] Last Infusion: 12/27/23 06:36 Dose: Infused Documented By: ELISHA Dextrose/Sodium Chloride (D5ns) 1,000 mls @ 100 mls/hr IVCONT .Q10H [facility] Last Admin: 12/27/23 06:00 Dose: Not Given Documented By: ELISHA Non-Admin Reason: stopped per Melatonin (Melatonin 3 Mg Tablet) 6 mg PO BEDTIME PRN PRN Reason: Insomnia Morphine Sulfate (Morphine Sulfate 2 Mg/Ml Cartridge) 2 mg IVPUSH Q4H PRN; Protocol PRN Reason: Pain, Severe (Pain Scale 7-10) Last Admin: 12/27/23 04:45 Dose: 2 mg Documented By: ELISHA Ondansetron HCl (Ondansetron Hcl 4 Mg/2 Ml Vial) 4 mg IVPUSH Q8H PRN PRN Reason: Nausea and Vomiting Last Admin: 12/25/23 18:02 Dose: 4 mg Documented By: COTREINIER Oxycodone HCl (Oxycodone Hcl Immed Release 5 Mg Tablet) 5 mg PO Q6H PRN PRN Reason: Pain, Moderate(Pain Scale 4-6) Last Admin: 12/24/23 13:56 Dose: 5 mg Documented By: SHREYA Pantoprazole Sodium (Pantoprazole Sodium 40 Mg/10 Ml Vial) 40 mg IVPUSH BID@0630,1630 [facility] Last Admin: 12/27/23 05:33 Dose: 40 mg Documented By: ELISHA Polyethylene Glycol (Polyethylene Glycol 3350 17 Gm Powd.Pack) 17 gm PO DAILY PRN PRN Reason: Constipation Last Admin: 12/25/23 09:20 Dose: 17 gm Documented By: COTEMA Prednisone (Prednisone 10 Mg Tablet) 30 mg PO DAILY [facility] Last Admin: 12/26/23 08:33 Dose: Not Given Documented By: BECKI Non-Admin Reason: NPO Prochlorperazine Edisylate (Prochlorperazine Edisylate 10 Mg/2 Ml Vial) 5 mg IVPUSH Q4H PRN PRN Reason: Nausea and Vomiting Last Admin: 12/25/23 09:21 Dose: 5 mg Documented By: COTEMA Senna (Sennosides 8.6 Mg Tablet) 8.6 mg PO BEDTIME [facility] Last Admin: 12/26/23 20:29 Dose: 8.6 mg Documented By: ELISHA Sodium Chloride (0.9 % Sodium Chloride Flush 3 Ml Syringe) 3 ml IVFLUSH QSHIFT [facility] Last Admin: 12/26/23 20:29 Dose: 3 ml Documented By: ELISHA Vitamin D (Cholecalciferol (Vitamin D3) 10 Mcg Tablet) 10 mcg PO DAILY [facility] Last Admin: 12/26/23 08:33 Dose: Not Given Documented By: BECKI Non-Admin Reason: NPO Labs 12/26/23 05:46 12/26/23 05:46 Assessment and Plan (1) Disseminated herpes zoster: Status: Acute Plan This is a 48-year-old female with a PMH significant for Crohn's disease? who presents to the ED for evaluation of painful blistering sores on mouth and around groin. Pt will be admitted to the hospital for treatment and further evaluation of disseminated herpes zoster. Abd pain with Constipation, nausea and vomiting likely SBO NGT removed 12/26/23 continue bowel regimin with enema GI consult, Dr. Auguste> repeat KUB (better) , continue current management IV PPI and bowel reg advance diet to full or as tolerated Disseminated Herpes zoster crusted over Likely secondary to Rinvoq use which she started december 03 continue acyclovir IV, likely d/c with valacyclovir 1gm TID x 10-14 days Gabapentin t.i.d. Analgesics for pain management, patient feeling better seen by ID Hold Rinvoq Crohns disease Not in acute flare Hold Rinvoq on prednisone will need outpatient follow up with GI Full Code Attending:?Dr. Lopez DVT Prophylaxis: Lovenox continue hospital stay for treatment of?herpes zoster flare up. Given disseminated nature of patient's flare up, including involvement of the face, and patient's immunocompromised state, she will require hospitalization for the administration of IV antivirals and specialist consultation with Infectious Disease. Quality Stroke Does the patient have a stroke diagnosis?: No VTE Prior VTE?: No VTE Risk Level:: Medical - moderate - high VTE Device Contraindication: Treatment Not Indicated VTE Drug Contraindication: N/A - Med Ordered
--- NOTE | 2023-12-27 08:53 | PM.PNGS ---
Subjective Subjective Date of Service: 12/27/23 Interval history: Patient has minimal abdominal symptoms clipped. Complaining more of right hip issues. Tolerating liquid diet. Passing flatus. Physical Exam Vital Signs: Vital Signs: Last Vital Signs Temp 98.6 F 12/27/23 07:30 Pulse 80 12/27/23 07:30 Resp 14 12/27/23 07:30 BP 129/79 12/27/23 07:30 Pulse Ox 96 12/27/23 07:30 O2 Del Method Room Air 12/27/23 07:30 BMI result Body Mass Index 20.6 GI: Other: Abdomen is soft, mild periumbilical tenderness but without guarding, rebound, rigidity. Improved from yesterday. Objective Data Active Medications Acetaminophen (Acetaminophen 325 Mg Tablet) 650 mg PO Q6H PRN PRN Reason: Pain, Mild (Pain Scale 1-3) Benzonatate (Benzonatate 100 Mg Capsule) 100 mg PO TID PRN PRN Reason: Cough Bisacodyl (Bisacodyl 10 Mg Supp.Rect) 10 mg [place] DAILY PRN PRN Reason: Constipation Last Admin: 12/24/23 12:07 Dose: 10 mg Documented By: COTEMA Calamine (Calamine/Zinc Oxide Lotion 177 Ml Bottle) 1 appl TOPICAL QID PRN; Protocol PRN Reason: Pain, Mild (Pain Scale 1-3) Cyanocobalamin (Cyanocobalamin (Vitamin B-12) 1,000 Mcg Tablet) 1,000 mcg PO DAILY [facility] Last Admin: 12/26/23 08:33 Dose: Not Given Documented By: BECKI Non-Admin Reason: NPO Docusate Sodium (Docusate Sodium 100 Mg Capsule) 100 mg PO BID [facility] Last Admin: 12/26/23 20:29 Dose: 100 mg Documented By: ELISHA Enoxaparin Sodium (Enoxaparin Sodium 40 Mg/0.4 Ml Syringe) 40 mg SUBCUT Q24H [facility] Last Admin: 12/26/23 20:28 Dose: 40 mg Documented By: ELISHA Gabapentin (Gabapentin 100 Mg Capsule) 200 mg PO TID [facility] Last Admin: 12/26/23 20:29 Dose: 200 mg Documented By: ELISHA Acyclovir Sodium 545 mg/ (Sodium Chloride) 110.9 mls @ 110.9 mls/hr IV Q8H [facility] Last Infusion: 12/27/23 06:36 Dose: Infused Documented By: ELISHA Dextrose/Sodium Chloride (D5ns) 1,000 mls @ 100 mls/hr IVCONT .Q10H [facility] Last Admin: 12/27/23 06:00 Dose: Not Given Documented By: ELISHA Non-Admin Reason: stopped per Melatonin (Melatonin 3 Mg Tablet) 6 mg PO BEDTIME PRN PRN Reason: Insomnia Morphine Sulfate (Morphine Sulfate 2 Mg/Ml Cartridge) 2 mg IVPUSH Q4H PRN; Protocol PRN Reason: Pain, Severe (Pain Scale 7-10) Last Admin: 12/27/23 04:45 Dose: 2 mg Documented By: ELISHA Ondansetron HCl (Ondansetron Hcl 4 Mg/2 Ml Vial) 4 mg IVPUSH Q8H PRN PRN Reason: Nausea and Vomiting Last Admin: 12/25/23 18:02 Dose: 4 mg Documented By: SHREYA Oxycodone HCl (Oxycodone Hcl Immed Release 5 Mg Tablet) 5 mg PO Q6H PRN PRN Reason: Pain, Moderate(Pain Scale 4-6) Last Admin: 12/24/23 13:56 Dose: 5 mg Documented By: SHREYA Pantoprazole Sodium (Pantoprazole Sodium 40 Mg/10 Ml Vial) 40 mg IVPUSH BID@0630,1630 [facility] Last Admin: 12/27/23 05:33 Dose: 40 mg Documented By: ELISHA Polyethylene Glycol (Polyethylene Glycol 3350 17 Gm Powd.Pack) 17 gm PO DAILY PRN PRN Reason: Constipation Last Admin: 12/25/23 09:20 Dose: 17 gm Documented By: SHREYA Prednisone (Prednisone 10 Mg Tablet) 30 mg PO DAILY [facility] Last Admin: 12/26/23 08:33 Dose: Not Given Documented By: BECKI Non-Admin Reason: NPO Prochlorperazine Edisylate (Prochlorperazine Edisylate 10 Mg/2 Ml Vial) 5 mg IVPUSH Q4H PRN PRN Reason: Nausea and Vomiting Last Admin: 12/25/23 09:21 Dose: 5 mg Documented By: SHREYA Senna (Sennosides 8.6 Mg Tablet) 8.6 mg PO BEDTIME [facility] Last Admin: 12/26/23 20:29 Dose: 8.6 mg Documented By: ELISHA Sodium Chloride (0.9 % Sodium Chloride Flush 3 Ml Syringe) 3 ml IVFLUSH QSHIFT [facility] Last Admin: 12/26/23 20:29 Dose: 3 ml Documented By: ELISHA Vitamin D (Cholecalciferol (Vitamin D3) 10 Mcg Tablet) 10 mcg PO DAILY [facility] Last Admin: 12/26/23 08:33 Dose: Not Given Documented By: BECKI Non-Admin Reason: NPO Labs 12/26/23 05:46 12/26/23 05:46 Procedures Date of Service Date of Service: 12/27/23 Progress Note: A&P Assessment and plan (1) Crohns disease of small intestine: Status: Acute (2) Acute Crohn's disease: Status: Acute Plan At present, patient is the improving from GI standpoint. Advance diet as tolerated, out of bed, incentive spirometry. Time Spent With Patient Time: Total time managing care of this patient today ____ minutes. Quality Stroke Does the patient have a stroke diagnosis?: No VTE Prior VTE?: No VTE Risk Level:: Medical - moderate - high VTE Device Contraindication: Treatment Not Indicated VTE Drug Contraindication: N/A - Med Ordered
[2023-12-27] MEDS: Mineral OiL enema 133 ML ENEMA PR (09:14)
[2023-12-27] MEDS: 0.9 % Sodium Chloride Flush 3 ML SYRINGE IVFLUSH ×3 (09:14→21:58)
[2023-12-27] MEDS: Cyanocobalamin (Vitamin B-12) 1,000 MCG TABLET 1000 MCG PO (09:14)
[2023-12-27] MEDS: predniSONE 10 MG TABLET 30 MG PO (09:15)
[2023-12-27] MEDS: Cholecalciferol (Vitamin D3) 10 MCG TABLET PO (09:15)
[2023-12-27] MEDS: Docusate Sodium 100 MG CAPSULE PO ×2 (09:15→21:51)
[2023-12-27] MEDS: Gabapentin 100 MG CAPSULE 200 MG PO ×3 (09:15→21:51)
[2023-12-27] MEDS: ondansetron HCL 4 MG/2 ML VIAL IVPUSH (09:49)
--- NOTE | 2023-12-27 10:03 | MHC.CLN ---
F/U DIET=FULL LIQUID. ADDING ENSURE TID TO INCREASE NUTRITIONAL INTAKE. PROVIDES 1050 KCALS, 60 G PROTEIN. NGT OUT 12/25 AND DIET ADVANCED TO CLEAR LIQUIDS THEN FULL LIQUIDS. FOLLOW FOR DIET ADVANCEMENT, PO INTAKE AND DIET TOLERANCE.
[2023-12-27 15:30] VITALS: BP 101/58; PULSE 89; RESP 16; TEMP 36.4; O2SAT 97
[2023-12-27] MEDS: Acetaminophen 325 MG TABLET 650 MG PO (17:21)
[2023-12-27 19:30] VITALS: BP 100/53; PULSE 78; RESP 16; TEMP 36.6; O2SAT 96
[2023-12-27] MEDS: Enoxaparin Sodium 40 MG/0.4 ML SYRINGE SUBCUT (19:45)
[2023-12-27] MEDS: Sennosides 8.6 MG TABLET PO (21:51)
[2023-12-28 03:05] VITALS: BP 106/65; PULSE 70; RESP 16; TEMP 37; O2SAT 98
[2023-12-28] MEDS: Pantoprazole Sodium 40 MG/10 ML VIAL IVPUSH ×2 (05:19→15:57)
[2023-12-28] MEDS: Morphine Sulfate 2 MG/ML CARTRIDGE IVPUSH ×3 (05:19→21:02)
[2023-12-28 07:30] VITALS: BP 112/63; PULSE 76; RESP 16; TEMP 37; O2SAT 96
[2023-12-28 07:31] LABS: CDiff Gene PCR NEGATIVE (Negative)
[2023-12-28] MEDS: predniSONE 20 MG TABLET PO (09:24)
[2023-12-28] MEDS: Gabapentin 100 MG CAPSULE 200 MG PO ×3 (09:24→20:54)
[2023-12-28] MEDS: Cyanocobalamin (Vitamin B-12) 1,000 MCG TABLET 1000 MCG PO (09:24)
[2023-12-28] MEDS: Cholecalciferol (Vitamin D3) 10 MCG TABLET PO (09:24)
[2023-12-28] MEDS: 0.9 % Sodium Chloride Flush 3 ML SYRINGE IVFLUSH ×2 (09:26→16:02)
--- NOTE | 2023-12-28 14:35 | P.PNIM_ITS ---
Subjective Subjective Date of Service: 12/28/23 Interval History: Seen and examined this morning Follow-up for shingles, ileus Abdominal pain improving, now with diarrhea Review of Systems Review of Systems: Yes all other systems are reviewed and are negative Constitutional Constitutional: Denies chills and Denies fever(s) Cardiovascular Cardiovascular: Denies chest pain, Denies palpitations and Denies dyspnea Respiratory Respiratory: Denies dyspnea Endocrine Endocrine: Denies palpitations Physical Exam 2 Vital Signs: Vital Signs: Last Vital Signs Temp 98.6 F 12/28/23 07:30 Pulse 76 12/28/23 07:30 Resp 16 12/28/23 07:30 BP 112/63 12/28/23 07:30 Pulse Ox 96 12/28/23 07:30 O2 Del Method Room Air 12/28/23 07:30 BMI result Body Mass Index 20.6 Const: General: cooperative, comfortable, no acute distress, alert and awake Nutritional Appearance: average body habitus Orientation/consciousness: p atient oriented x3 Resp: Effort & Inspection: normal respiratory effort, able to speak in complete sentences, no respiratory distress and no use of accessory muscles Cardio: Rate: regular rate GI: Inspection: No distended Palpation (GI): not soft and nontender Skin: Other: no new lesions noted, pustular lesions now flat; most lesions starting to dry out Neuro: General: patient oriented x3, moves all extremities and CN's II-XI intact bilaterally Extrem: General: Yes no pedal edema Objective Data Active Medications Acetaminophen (Acetaminophen 325 Mg Tablet) 650 mg PO Q6H PRN PRN Reason: Pain, Mild (Pain Scale 1-3) Last Admin: 12/27/23 17:21 Dose: 650 mg Documented By: BECKI Benzonatate (Benzonatate 100 Mg Capsule) 100 mg PO TID PRN PRN Reason: Cough Bisacodyl (Bisacodyl 10 Mg Supp.Rect) 10 mg [place] DAILY PRN PRN Reason: Constipation Last Admin: 12/24/23 12:07 Dose: 10 mg Documented By: COTEMA Calamine (Calamine/Zinc Oxide Lotion 177 Ml Bottle) 1 appl TOPICAL QID PRN; Protocol PRN Reason: Pain, Mild (Pain Scale 1-3) Cyanocobalamin (Cyanocobalamin (Vitamin B-12) 1,000 Mcg Tablet) 1,000 mcg PO DAILY [facility] Last Admin: 12/28/23 09:24 Dose: 1,000 mcg Documented By: DENIA Docusate Sodium (Docusate Sodium 100 Mg Capsule) 100 mg PO BID [facility] Last Admin: 12/28/23 09:25 Dose: Not Given Documented By: DENIA Non-Admin Reason: loose stool Enoxaparin Sodium (Enoxaparin Sodium 40 Mg/0.4 Ml Syringe) 40 mg SUBCUT Q24H [facility] Last Admin: 12/27/23 19:45 Dose: 40 mg Documented By: ROBYN Gabapentin (Gabapentin 100 Mg Capsule) 200 mg PO TID [facility] Last Admin: 12/28/23 14:23 Dose: 200 mg Documented By: DENIA Acyclovir Sodium 545 mg/ (Sodium Chloride) 110.9 mls @ 110.9 mls/hr IV Q8H [facility] Last Infusion: 12/28/23 14:20 Dose: Infused Documented By: DENIA Melatonin (Melatonin 3 Mg Tablet) 6 mg PO BEDTIME PRN PRN Reason: Insomnia Morphine Sulfate (Morphine Sulfate 2 Mg/Ml Cartridge) 2 mg IVPUSH Q4H PRN; Protocol PRN Reason: Pain, Severe (Pain Scale 7-10) Last Admin: 12/28/23 11:21 Dose: 2 mg Documented By: DENIA Ondansetron HCl (Ondansetron Hcl 4 Mg/2 Ml Vial) 4 mg IVPUSH Q8H PRN PRN Reason: Nausea and Vomiting Last Admin: 12/27/23 09:49 Dose: 4 mg Documented By: BECKI Oxycodone HCl (Oxycodone Hcl Immed Release 5 Mg Tablet) 5 mg PO Q6H PRN PRN Reason: Pain, Moderate(Pain Scale 4-6) Last Admin: 12/24/23 13:56 Dose: 5 mg Documented By: COTEMA Pantoprazole Sodium (Pantoprazole Sodium 40 Mg/10 Ml Vial) 40 mg IVPUSH BID@0630,1630 [facility] Last Admin: 12/28/23 05:19 Dose: 40 mg Documented By: ROBYN Polyethylene Glycol (Polyethylene Glycol 3350 17 Gm Powd.Pack) 17 gm PO DAILY PRN PRN Reason: Constipation Last Admin: 12/25/23 09:20 Dose: 17 gm Documented By: SHREYA Prednisone (Prednisone 20 Mg Tablet) 20 mg PO DAILY [facility] Last Admin: 12/28/23 09:24 Dose: 20 mg Documented By: DENIA Prochlorperazine Edisylate (Prochlorperazine Edisylate 10 Mg/2 Ml Vial) 5 mg IVPUSH Q4H PRN PRN Reason: Nausea and Vomiting Last Admin: 12/25/23 09:21 Dose: 5 mg Documented By: SHREYA Senna (Sennosides 8.6 Mg Tablet) 8.6 mg PO BEDTIME [facility] Last Admin: 12/27/23 21:51 Dose: 8.6 mg Documented By: ROBYN Sodium Chloride (0.9 % Sodium Chloride Flush 3 Ml Syringe) 3 ml IVFLUSH QSHIFT [facility] Last Admin: 12/28/23 09:26 Dose: 3 ml Documented By: DENIA Vitamin D (Cholecalciferol (Vitamin D3) 10 Mcg Tablet) 10 mcg PO DAILY [facility] Last Admin: 12/28/23 09:24 Dose: 10 mcg Documented By: DENIA Labs 12/26/23 05:46 12/26/23 05:46 Labs: Laboratory Results - last 24 hr 12/28/23 05:30 C. difficile Tox B Gene NEGATIVE Assessment and Plan (1) Disseminated herpes zoster: Status: Acute Plan This is a 48-year-old female with a PMH significant for Crohn's disease? who presents to the ED for evaluation of painful blistering sores on mouth and around groin. Pt will be admitted to the hospital for treatment and further evaluation of disseminated herpes zoster. Abd pain with Constipation, nausea and vomiting pSBO s/p NGT, removed 12/26/23 continue bowel regimen GI consult, Dr. Auguste> repeat KUB (better) , continue current management IV PPI and bowel reg advance diet to full or as tolerated Disseminated Herpes zoster crusted over Likely secondary to Rinvoq use which she started december 03 continue acyclovir IV, likely d/c with valacyclovir 1gm TID x 10-14 days Gabapentin t.i.d. Analgesics for pain management, patient feeling better seen by ID Hold Rinvoq Crohns disease Not in acute flare Hold Rinvoq on prednisone, continue to taper will need outpatient follow up with GI Full Code Attending:?Dr. Lopez DVT Prophylaxis: Lovenox continue hospital stay for treatment of?herpes zoster flare up. Given disseminated nature of patient's flare up, including involvement of the face, and patient's immunocompromised state, she will require hospitalization for the administration of IV antivirals and specialist consultation with Infectious Disease. Quality Stroke Does the patient have a stroke diagnosis?: No VTE Prior VTE?: No VTE Risk Level:: Medical - moderate - high VTE Device Contraindication: Treatment Not Indicated VTE Drug Contraindication: N/A - Med Ordered
[2023-12-28 15:11] LABS: Hematocrit 27.1 % (37.0-47.0); Hemoglobin 8.9 g/dl (12.0-16.0); Mean Corpuscular HGB Conc 32.8 g/dl (31.0-35.0); Mean Corpuscular Volume 91.2 fL (80.0-98.0); Mean Platelet Volume 8.6 fL (9.4-12.3); Platelet Count 366 X10*3/uL (160-400); Red Blood Count 2.97 X10*6/uL (4.20-5.50); Red Cell Distribution Width 15.8 % (11.0-16.0); White Blood Count 11.2 X10*3/uL (4.8-10.8)
[2023-12-28 15:46] VITALS: BP 97/54; PULSE 76; RESP 16; TEMP 36.4; O2SAT 98
[2023-12-28 19:45] VITALS: BP 107/55; PULSE 83; RESP 16; TEMP 36.8; O2SAT 98
[2023-12-28] MEDS: Enoxaparin Sodium 40 MG/0.4 ML SYRINGE SUBCUT (20:53)
[2023-12-28] MEDS: Acetaminophen 325 MG TABLET 650 MG PO (21:00)
[2023-12-29 03:50] VITALS: BP 120/61; PULSE 64; RESP 16; TEMP 37; O2SAT 99
[2023-12-29] MEDS: 0.9 % Sodium Chloride Flush 3 ML SYRINGE IVFLUSH ×2 (03:52→08:16)
[2023-12-29 07:40] VITALS: BP 116/86; PULSE 67; RESP 16; TEMP 36.8; O2SAT 97
[2023-12-29] MEDS: Docusate Sodium 100 MG CAPSULE PO (08:15)
[2023-12-29] MEDS: predniSONE 20 MG TABLET PO (08:15)
[2023-12-29] MEDS: Cyanocobalamin (Vitamin B-12) 1,000 MCG TABLET 1000 MCG PO (08:15)
[2023-12-29] MEDS: Gabapentin 100 MG CAPSULE 200 MG PO (08:15)
[2023-12-29] MEDS: Cholecalciferol (Vitamin D3) 10 MCG TABLET PO (08:15)
[2023-12-29] MEDS: Acetaminophen 325 MG TABLET 650 MG PO (08:18)
--- NOTE | 2023-12-29 10:41 | MHC.CLN ---
F/U DIET ADVANCED TO REGULAR ON 12/26. MOST RECENT PO INTAKE APPEARS GOOD, 75-100% SINCE DIET ADVANCED. ADDING ENSURE BID TO INCREASE NUTRITIONAL INTAKE. PROVIDES 700 KCALS, 40 G PROTEIN. FOLLOW FOR PO INTAKE AND DIET TOLERANCE.
--- NOTE | 2023-12-29 11:11 | P.DS_ITS ---
DS: Providers Provider Date of Service: 12/29/23 Date of admission: 12/20/23 19:46 Date of discharge: 12/29/23 Primary care physician: Gwendolyn Luis MD Consults: 12/20/23 20:40 Consult to Infectious Diseases Routine Consulting Provider: [facility] Reason for consultation: Disseminated herpes zoster on face and groin 12/25/23 13:56 Consult to Gastroenterology Routine Consulting Provider: Lukasz Auguste Reason for consultation: abd pain, nausea, vomiting and constipation 12/25/23 17:29 Consult to General Surgery Routine Consulting Provider: [facility] General Surgeons Reason for consultation: Crohn's, SBO Has provider been notified: No Attending physician on discharge: Pk Lopez Discharging clinician: Genia Roche DS: Diagnosis Discharge Diagnosis (1) Disseminated herpes zoster: Status: Acute DS: Summary Hospital Course Hospital Course: From H&P on the day of admission Pt is a 48-year-old female with a PMH significant for Crohn's disease? who presents to the ED for evaluation of painful blistering sores on mouth and around groin. Patient was previously admitted to the hospital on 12/13-12/16 and initially treated for Crohn's flare but found to have SI joint dysfunction which resolved with straight leg pull. While in the hospital says developed painful blisters on the inside of her mouth on Monday. On Monday blisters began appearing on the right side of her face and then on Monday, noticed blistering sores on the right side of her groin. Rash in groin area spread while that around the mouth remained contained. Both sites are very painful, itchy, and burning . Reports subjective fever, chills, fatigue, having difficulty sleeping or eating well, and being unable to walk. Some nausea but no vomiting. Also reports lower back and right hip pain. Patient reports she normally gets cold sores whenever she is sick, but also notes she has recently started Rinvoq on 12/04/2023 which has a known side effect of herpes zoster. Patient states she had chickenpox when she was younger, and has not yet received the shingles vaccination. Denies chest pain/pressure or palpitations. No SOB. In the ED pt was afebrile with elevated HR of 99, vitals otherwise WNL. Labs were grossly unremarkable and WNL or baseline for pt. Pt was treated with morphine. Pt will be admitted to the hospital for treatment and further evaluation of disseminated herpes zoster. Abd pain with Constipation, nausea and vomiting . Due to pSBO s/p NGT, removed 12/26/23. Seen by GI and surgery. Improved with conservative management. Now tolerating a full diet. Disseminated Herpes zoster Likely secondary to Rinvoq use which she started december 03. Treated with acyclovir IV. Rinvoq stopped. She completed 9 days of IV acyclovir. Plan for 5 more days of oral valtrex Crohns disease will continue with prednisone 20 mg until follow-up with primary vp software support, has been weaned from 40 mg. Will need outpatient follow-up with her primary vp software support for an alternative to the Rinvoq that was stopped. Recommend referral to one of the [facility] in [place] Time Attestation Discharge Coordination Time (in mins): 38 Quality: Safe Use of Opioids Does Pt have an Active Cancer Diagnosis on the Problem List?: No Quality: Stroke Does the patient have a stroke diagnosis?: No Physical Exam Vital Signs: Vital Signs: Last Vital Signs Temp 98.3 F 12/29/23 07:40 Pulse 67 12/29/23 07:40 Resp 16 12/29/23 07:40 BP 116/86 12/29/23 07:40 Pulse Ox 97 12/29/23 07:40 O2 Del Method Room Air 12/29/23 07:40 BMI result Body Mass Index 20.6 Const: General: cooperative, comfortable, no acute distress, alert and awake Nutritional Appearance: average body habitus Orientation/consciousness: patient oriented x3 Resp: Effort & Inspection: normal respiratory effort and able to speak in complete sentences Cardio: Rate: regular rate GI: Inspection: No distended Palpation (GI): Soft to palpation and nontender Neuro: General: patient oriented x3 DS: Data Data Completed and Pending Labs on day of discharge: Laboratory Results - last 24 hr 12/28/23 15:02 WBC 11.2 H RBC 2.97 L Hgb 8.9 L Hct 27.1 L MCV 91.2 MCH 30.0 MCHC 32.8 RDW 15.8 Plt Count 366 MPV 8.6 L Absolute Nucleated RBC 0.000 Nucleated RBC % (auto) 0.0 Discharge Plan Discharge Anticipated Discharge Date/Time: 12/29/23 11:15 Patient Disposition: Home, Self-Care Discharge Diagnosis: Disseminated herpes zoster Partial small-bowel obstruction Underlying Crohn's colitis Referrals: Gwendolyn Luis MD [Primary Care Provider] - 01/11/24 10:30 am (You have a follow up appointment scheduled. if you can not make this appointment please call office to rescedule.) Discharge Medications: New gabapentin 100 mg Capsule 100 mg PO TID 14 Days Qty: 42 0RF prednisone 20 mg Tablet 20 mg PO DAILY 30 Days Qty: 30 0RF valacyclovir [Valtrex] 1 gram tablet 1,000 mg PO Q8H 5 Days Qty: 15 0RF Continued acetaminophen 325 mg Tablet 650 mg PO QID PRN (Reason: Pain) cyanocobalamin (vitamin B-12) 1,000 mcg Tablet 1,000 mcg PO DAILY Vitamin C 100 mg Tablet 100 mg PO DAILY cholecalciferol (vitamin D3) [Vitamin D3] 10 mcg (400 unit) Tablet 10 mcg PO DAILY calcium carbonate [Calcium 600] 600 mg calcium (1,500 mg) Tablet 600 mg PO DAILY oxycodone 5 mg tablet 5 mg PO Q6H MDD 20mg PRN (Reason: pain) Qty: 20 0RF Rx Instructions: Partial Fill upon patient request. Discontinued Rinvoq 45 mg Tablet Extended Release 24 Hr 45 mg PO DAILY prednisone 20 mg Tablet 40 mg PO DAILY Qty: 60 0RF Discharge Orders: Discharge Order (Routine); Ordered 12/29/23 Ordered By: Genia Roche Activity on Discharge: As tolerated Stand Alone Forms: Patient Portal Discharge page Print Language: Iranian Care Plan Goals: Disseminated herpes zoster secondary to Rinvoq use partial small-bowel obstruction Health Concerns: As above Plan of Treatment: Call to schedule a follow-up appointment with your primary vp software support as soon as possible Continue to take 20 mg daily of prednisone until you see your primary vp software support Complete 5 more days of oral Valtrex for disseminated herpes zoster Stop taking Rinvoq. You will need to follow-up with GI to determine alternative treatment for Crohn's disease Assessment: See discharge summary Patient Instructions: Calvin (ED)
--- NOTE | 2023-12-29 11:35 | MHC.CM.PN ---
PT DCD HOME SELF CARE
== END 2023-12-29 12:20 | disposition home or self-care (01) | DRG 723 ==
LOC: HO.ED 19:39 → HO.EDOVER 20:16 → HO.S3 12-21 13:15
PROVIDERS: Internal Medicine; Physician Assistant Medical; Admitting Provider Student in an Organized Health Care Education/Training Program; Emergency Provider Emergency Medicine; PCP Internal Medicine; Visit Provider Physician Assistant Medical
DX: B02.7 Disseminated zoster (principal); K50.012 Crohn's disease of small intestine with intestinal obstruction; K59.00 Constipation, unspecified; R63.6 Underweight; Z68.20 Body mass index [BMI] 20.0-20.9, adult; T45.1X5A Adverse effect of antineoplastic and immunosuppressive drugs, initial encounter; Z87.891 Personal history of nicotine dependence; Z79.899 Other long term (current) drug therapy
CPT/HCPCS: 0353U; 36415; 71045; 74018; 80048; 80053; 80076; 81003; 83690; 83735; 85025; 85027; 87389; 87493; 99285; C9113; J0133; J0737; J1650; J2270; J2405; J7120

== ENCOUNTER → 2023-12-20 19:46 | Outpatient (BNV) | payer OTHER, SELFPAY | PROVIDERS: Admitting Provider Student in an Organized Health Care Education/Training Program; Emergency Provider Emergency Medicine; PCP Internal Medicine; Visit Provider Physician Assistant Medical | DX: B02.7 Disseminated zoster (principal) | CPT/HCPCS: 99223; 99232; 99239 ==

== ENCOUNTER → 2023-12-20 19:46 | Outpatient (BNV) | payer OTHER, SELFPAY | PROVIDERS: Admitting Provider Student in an Organized Health Care Education/Training Program; Emergency Provider Emergency Medicine; PCP Internal Medicine; Visit Provider Physician Assistant Surgical | DX: K50.00 Crohn's disease of small intestine without complications (principal); K50.90 Crohn's disease, unspecified, without complications | CPT/HCPCS: 99222; 99232 ==

== ENCOUNTER → 2023-12-20 19:46 | Outpatient (BNV) | payer OTHER, SELFPAY | PROVIDERS: Admitting Provider Student in an Organized Health Care Education/Training Program; Emergency Provider Emergency Medicine; PCP Internal Medicine; Visit Provider Internal Medicine | DX: B02.9 Zoster without complications (principal); K50.00 Crohn's disease of small intestine without complications | CPT/HCPCS: 99222 ==

== ENCOUNTER 2024-03-30 12:01 | Emergency (ER) | payer OTHER, SELFPAY ==
--- NOTE | 2024-03-30 12:07 | ED_ITS ---
HPI - Allergic Reaction General Chief complaint: Skin/Abscess/Foreign Body Stated complaint: rash, ?allergic reaction Time Seen by Provider: 03/30/24 12:13 Source: patient, RN notes reviewed and old records reviewed Mode of arrival: ambulatory History of Present Illness ED Provider: Dawn Temple PA-C HPI narrative: 48-year-old female with a past medical history Crohn's disease, SBO s/p colon resection on 02/07/24, disseminated herpes zoster, presenting to the ED complaining diffuse pruritic rash x1 month. States has seen PCP an urgent Care, finished course of prednisone on however went to urgent care yesterday and prescribed an additional prednisone taper which she started today without symptomatic improvement. Admits she has been taking Benadryl. Admits to antibiotics 1 month ago with surgery, denies other new medications/exposures, soaps/lotions/detergent, SOB, CP, throat closing sensation, wheezing MD complaint: allergic reaction Related Data Home Medications ?Medication ?Instructions ?Recorded ?Confirmed acetaminophen 325 mg tablet 650 mg PO QID PRN Pain 11/01/23 12/20/23 ascorbic acid (vitamin C) 100 mg 100 mg PO DAILY 11/01/23 12/20/23 tablet (Vitamin C) cholecalciferol (vitamin D3) 10 10 mcg PO DAILY 11/01/23 12/20/23 mcg (400 unit) tablet (Vitamin D3) cyanocobalamin (vitamin B-12) 1,000 mcg PO DAILY 11/01/23 12/20/23 1,000 mcg tablet calcium carbonate (Calcium 600) 600 mg PO DAILY 12/14/23 12/20/23 Previous Rx's ?Medication ?Instructions ?Recorded oxycodone 5 mg tablet 5 mg PO Q6H PRN pain #20 tabs 12/17/23 gabapentin 100 mg capsule 100 mg PO TID 14 days #42 caps 12/29/23 prednisone 20 mg tablet 20 mg PO DAILY 30 days #30 tabs 12/29/23 valacyclovir 1 gram tablet 1,000 mg PO Q8H 5 days #15 tabs 12/29/23 (Valtrex) hydrocortisone 1 % topical cream 1 appl topical BID PRN rash #28.35 03/30/24 (Anti-Itch (hydrocortisone)) grams Allergies Allergy/AdvReac Type Severity Reaction Status Date / Time upadacitinib [From TUKZ Undergarmentsvoq] AdvReac Rash Verified 03/30/24 12:11 Review of Systems Review of Systems: Constitutional: No Fever, No Chills ENT/Mouth: No Ear Pain, No Nasal Congestion, No Hoarseness, No sore throat, No Rhinorrhea, No Swallowing Difficulty Cardiovascular: No Chest Pain, No SOB Respiratory: No Cough, No Wheezing Gastrointestinal: No Nausea, No Vomiting, No Diarrhea, No Constipation, No Abdominal pain Musculoskeletal: No joint pain, No Myalgias, No Joint Swelling Skin: No Skin Lesions, + rash Neuro: No Weakness Yes all other systems are reviewed and are negative Constitutional: Constitutional: Reports as per [facility] Past Medical History Attestation statement: The following information was validated with the patient. Source: old records reviewed Medical History Crohns disease of small intestine Acute Crohn's disease Exacerbation of Crohn's disease Crohn disease Crohn's disease Depression Social History Social History Household Members: Family Household Members Other:: father grandma Housing: House Do you presently have visiting nurse or other home services: No Alcohol intake: never Comment: pt refuses alarms Patient Tobacco Use Status: Former Tobacco user Tobacco use type: Cigarette Cigarette Packs Per Day: 0.5 Cigarettes Per Day: 2 Years Smoked: 3 months ago e-Cigarette/Vaping Use: Currently Using Second Hand Smoke Exposure: No Advance Directives: Yes Advance Directives on File: Yes Advance Directives Date on File: 07/04/23 Do you have a plan to hurt others: No Plan service: No Physical Exam ED Vital Signs: Vital Signs - 24 hr 03/30/24 12:08 03/30/24 12:53 03/30/24 12:56 Temperature 99.0 F 97.3 F 97.3 F Pulse Rate 111 H 80 80 Respiratory Rate 18 17 17 Blood Pressure 96/57 L 103/56 L 103/56 L Pulse Oximetry 98 100 100 Oxygen Delivery Method Room Air Room Air Room Air BMI result Body Mass Index 19.8 Const General: cooperative, healthy appearing and no acute distress Orientation/consciousness: patient oriented x3 Limitations: no limitations HENMT Head: Yes normal to inspection and Yes atraumatic Ears: hearing grossly normal bilaterally General nose exam: Normal external nose present Face and sinus: Yes normal facial exam Mouth: no drooling Throat: Yes posterior oropharynx normal, Yes uvula midline, No peritonsillar mass, No uvula laterally displaced and No uvular edema Eyes General: appearance normal, both eyes and all related structures EOM: EOMs intact bilaterally Neck Neck: Yes normal visual inspection and Yes no meningeal signs Resp Effort & Inspection: normal respiratory effort, not labored, no respiratory distress and no stridor Auscultation: clear to auscultation bilaterally Cardio Rate: regular rate and tachycardic Heart sounds: S1 normal heart sound present and S2 normal heart sound present GI Inspection: Yes normal to inspection Skin Other: + erythematous hives noted to bilateral upper extremities and bilateral knees. No palms/sole or mucous membrane involvement. Wounds: no wounds Neuro General: patient oriented x3, tone normal and no meningeal signs Cranial nerves: Yes CN's II-XII intact bilaterally Gait exam (Neuro): Normal gait present Extrem General: Yes normal to inspection Medications Administered Discontinued Medications Generic Name Dose Route Start Last Admin Trade Name Freq PRN Reason Stop Dose Admin Diphenhydramine HCl 50 mg 03/30/24 12:13 03/30/24 12:26 Diphenhydramine Hcl 50 Mg/Ml Vial IM 03/30/24 12:14 50 mg ONCE ONE Administration Methylprednisolone Sodium Succinate 60 mg 03/30/24 12:13 03/30/24 12:26 Methylprednisolone Sod Succ 125 Mg/2 Ml Vial IM 03/30/24 12:14 60 mg ONCE ONE Administration Medical Decision Making Medical Decision Making MDM Narrative: 48-year-old female with a past medical history Crohn's disease, SBO s/p colon resection on 02/07/24, disseminated herpes zoster, presenting to the ED complaining diffuse pruritic rash x1 month. On exam tachycardic, NAD, nontoxic appearing, no respiratory distress, talking in complete sentences, no evidence of anaphylaxis. Rash/suspected allergic reaction as depicted above. No mucous membrane or palm/sole involvement. No evidence of SJS/TENS. Plan: IM Benadryl and Solu-Medrol. Discussed with patient to continue taking prescribed prednisone taper which she was given yesterday as well as Benadryl/Zyrtec and will also give topical hydrocortisone & refer to Manager Epic Please refer to course for remaining clinical decision making, interpretation of labs/imaging results, and discussions with consultants and/or family members. Results discussed with patient including worrisome signs and symptoms and strict return precautions, and when to return to the emergency department. They verbalized understanding and feel safe for discharge at this time. Differential Diagnosis Differential Diagnoses: The differential diagnosis associated with the presentation includes As above Admission/Observation Consideration of admission/observation: Escalation of care including admission/observation considered Lab Data MDM Lab Attestation statement: I reviewed the patient's lab results. Radiology Impression Discussion of test interpretation with radiology: I have reviewed the radiologist's reading. External Record Review External record reviewed: Inpatient record, Office record, Outpatient record, Prior outpatient labs, Prior outpatient radiology, Primary care record and Outside ED record Tests considered The following testing was considered but not selected: As above Prescription Management I considered prescription management with: Other Discharge Plan Discharge Clinical Impression: Allergic reaction Patient Disposition: Home, Self-Care Instructions: General Allergic Reaction (ED), Allergy Testing (ED) Additional Instructions: Continue taking prescribed prednisone taper In addition take Benadryl and Zyrtec Topical hydrocortisone as a topical steroid, apply to rash only You should follow-up with youth coordinator If symptoms persist or worsen you develop any shortness of breath, throat closing sensation or wheezing return to the ED immediately Prescriptions: New hydrocortisone [Anti-Itch (HC)] 1 % cream 1 appl topical BID PRN (Reason: rash) Qty: 28.35 0RF No Action acetaminophen 325 mg Tablet 650 mg PO QID PRN (Reason: Pain) cyanocobalamin (vitamin B-12) 1,000 mcg Tablet 1,000 mcg PO DAILY Vitamin C 100 mg Tablet 100 mg PO DAILY cholecalciferol (vitamin D3) [Vitamin D3] 10 mcg (400 unit) Tablet 10 mcg PO DAILY calcium carbonate [Calcium 600] 600 mg calcium (1,500 mg) Tablet 600 mg PO DAILY oxycodone 5 mg tablet 5 mg PO Q6H MDD 20mg PRN (Reason: pain) Qty: 20 0RF Rx Instructions: Partial Fill upon patient request. gabapentin 100 mg Capsule 100 mg PO TID 14 Days Qty: 42 0RF prednisone 20 mg Tablet 20 mg PO DAILY 30 Days Qty: 30 0RF valacyclovir [Valtrex] 1 gram tablet 1,000 mg PO Q8H 5 Days Qty: 15 0RF [facility] [Outside] [facility] [Outside] Gwendolyn Luis MD [Primary Care Provider] - Interventions: ED Discharge Assessment Last Done: 03/30/24 12:56 Discharge Date/Time: 03/30/24 12:59 Print Language: Vincentian
[2024-03-30 12:08] VITALS: BP 96/57; PULSE 111; RESP 18; TEMP 37.2; O2SAT 98; BMI 19.8
[2024-03-30] MEDS: diphenhydrAMINE HCL 50 MG/ML VIAL IM (12:26)
[2024-03-30] MEDS: methylPREDNISolone Sod Succ 125 MG/2 ML VIAL 60 MG IM (12:26)
--- OUTSIDE RECORDS SUMMARY | 2024-03-30 12:48 | XMS_ITS | Continuity of Care Document ---
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 Name Role Phone Gwendolyn Luis MD Primary Care Physician [phone] Encounter [facility] Date(s): 02/20/24 - 02/27/[address] [place] [address]- Attending Physician: Bhavani Vasquez MD Referring Physician: Gwendolyn Luis MD Allergies, Adverse Reactions, Alerts Substance Reaction Severity Status Rinvoq Shingles Active Medications acetaminophen 500 mg oral tablet 1 tablet = 500 mg, By Mouth, Every 6 hours, NEEDED FOR PAIN Start Date: 01/21/24 Status: Ordered Adult Multivitamin Gummies oral tablet, chewable 1 tablet, By Mouth, Daily, 0 Refills, Maintenance, 01/21/24 18:22:00 EDT, Partial fill upon patientrequest if the prescription is for a schedule II opioid drug. Start Date: 01/21/24 Status: Ordered calcium carbonate 600 mg oral tablet 1 tablet = 600 mg, By Mouth, 2 times a day, # 60 tablet, 0 Refills, Maintenance, 01/21/24 18:21:00 EDT, Tablet, Partial fill upon patient request if the prescription is for a schedule II opioid drug. Start Date: 01/21/24 Status: Ordered enoxaparin 40 mg/0.4 mL injectable solution 0.4 mL = 40 mg, Subcutaneous Injection, Daily, for 30 days, # 12 mL, 0 Refills, Acute 03/14/24 13:12:00 EDT, 02/13/24 13:12:00 EDT, Injection, [facility], Partial fill upon patient request if the prescription is for a schedule II opioid... Start Date: 02/13/24 Stop Date: 03/14/24 Status: Ordered ferrous sulfate 325 mg oral tablet 1 tablet = 325 mg, By Mouth, Daily, # 90 tablet, 0 Refills, Maintenance, 01/21/24 18:12:00 EDT, Tablet, Partial fill upon patient request if the prescription is for a schedule II opioid drug. Start Date: 01/21/24 Status: Ordered Imodium A-D 2 mg oral tablet 2 mg, 1, tablet, By Mouth, 2 times a day before breakfast and dinne, PRN, # 60 tablet, Refills 0, Tot. Refills 0, Maintenance, for loose stool, 02/13/24 13:15:00 EDT, Route to Pharmacy Electronically, [facility], Partial fill upon patien... Start Date: 02/13/24 Status: Ordered lidocaine 5% topical film See Instructions, Topically Daily, # 30 patch, 0 Refills, Maintenance, 02/13/24 13:12:00 EDT, Patch, [facility], Partial fill upon patient request if the prescription is for a schedule II opioid drug., Topically Daily, 163, cm, 02/09/24... Start Date: 02/13/24 Status: Ordered metroNIDAZOLE 500 mg oral tablet 1 tablet = 500 mg, By Mouth, Every 8 hours, for 30 days, # 90 tablet, 0 Refills, Acute 03/14/24 13:13:00 EDT, 02/13/24 13:13:00 EDT, Tablet, [facility], Partial fill upon patient request if the prescription is for a schedule II opioid drReilly.. Start Date: 02/13/24 Stop Date: 03/14/24 Status: Ordered oxyCODONE 5 mg oral tablet 5 mg, 1, tablet, By Mouth, Every 6 hours, PRN, # 20 tablet, Refills 0, Tot. Refills 0, Maintenance,Pain , Severe, 02/13/24 13:13:00 EDT, Route to Pharmacy Electronically, [facility], Partial fill upon patient request if the prescription... Start Date: 02/13/24 Status: Ordered predniSONE 10 mg oral tablet See Instructions, 3 tablet By Mouth Daily x 7 days then 2 tablets daily x 7 days then 1 tablet daily x 7 days then stop, # 42 tablet, 0 Refills, Maintenance, 02/13/24 13:09:00 EDT, Tablet, [facility], Partial fill upon patient request i... Start Date: 02/13/24 Status: Ordered Veggie- Fruit Blend Veggie- Fruit Blend, By Mouth, Daily, Refills 0, Maintenance, 01/21/24 18:22:00 EDT, Supply Start Date: 01/21/24 Status: Ordered Vitamin B12 By Mouth, Daily, otc, 0 Refills, Maintenance, 01/21/24 18:21:00 EDT, Partial fill upon patient request if the prescription is for a schedule II opioid drug. Start Date: 01/21/24 Status: Ordered Vitamin C 500 mg oral tablet 1 tablet = 500 mg, By Mouth, Daily, # 30 tablet, 0 Refills, Maintenance, 01/21/24 18:13:00 EDT, Tablet, Partial fill upon patient request if the prescription is for a schedule II opioid drug. Start Date: 01/21/24 Status: Ordered Problem List Condition Confirmation Course Effective Dates Status Health St atus Informant Latent tuberculosis by blood test 1 Confirmed Active 1pt. completed [facility] tx on 12/09/2022. pt. took Rifapin 600 mg qd x 4 months Patient Care team information Care Team Personnel Name: Gema Garcia RN Position: [facility] RN Member Role: Primary Care Nurse Name: Radha Jean-Baptiste RN Position: [facility] RN Member Role: Primary Care Nurse Name: Shanice Colon RN Position: [facility] RN Member Role: Primary Care Nurse Name: Catherine Barba RN Position: [facility] RN Member Role: Primary Care Nurse Name: Oswaldo Pisano RN Position: [facility] RN Member Role: Primary Care Nurse Name: Gwendolyn Luis MD Position: [facility] Physician - Primary Care Member Role: PCP Address: Address: [address] [place] [id number] Name: Lola Hopson RN Position: S RN Member Role: Primary Care Nurse Name: Vivian Turpin RN Position: S RN Member Role: Primary Care Nurse Name: Radha Carroll RN Position: S RN Member Role: Primary Care Nurse Name: Eunice Julio RN Position: S RN Member Role: Primary Care Nurse Care Team Related Persons Name: KEN MIMS Name: HELDER MCBRIDE Address: [address] [address] Name: RAMO MCBRIDE Address: [address] [address] Name: MEHREEN GIANG
--- OUTSIDE RECORDS SUMMARY | 2024-03-30 12:48 | XMS_ITS | Continuity of Care Document ---
Author Organization [facility] ter Address [address] [place] [id number] Care Team Providers Care [employer] Name Role Phone Gwendolyn Luis MD Primary Care Physician En[place] [facility] [place](s): 01/21/24 - 01/25/[address] [address]- Encounter Diagnosis Crohn's disease(Final) - 01/21/24 Discharge Disposition: A-D/C Home Attending Physician: Bhavani Vasquez MD Admitting Physician: Bhavani Vasquez MD Referring Physician: Not on Staff, Referring MD Allergies, Adverse Reactions, Alerts Substance Reaction [...] opioid drug. Start Date: 01/21/24 Status: Ordered ferrous sulfate 325 mg oral tablet 1 tablet = 325 mg, By Mouth, Daily, # 90 tablet, 0 Refills, Maintenance, 01/21/24 18:12:00 EDT, Tablet, Partial fill upon patient request if the prescription is for a schedule II opioid drug. Start Date: 01/21/24 Status: Ordered predniSONE 5 mg oral tablet See Instructions, 5 tablet By mouth daily 6 days then 4 tablets daily x 7 days, then 3 tablets daily x 7days, then 2 tablets x 7days, then 1 tablet x 7 days then stop, # 100 tablet, 0 Refills, Maintenance, 01/25/24 12:02:00 EDT, Tablet, [facility]... Start Date: 01/25/24 Status: Ordered Veggie- Fruit Blend Veggie- Fruit [...] Condition Confirmation Course Effective Dates Status Health atus Informant Latent tuberculosis by blood test 1 Confirmed Active 1pt. completed [facility]BI tx on 12/09/2022. pt. took Rifapin 600 mg qd x 4 months Results Radiology Reports * Exam Date Time Procedure Performing Provider Status 01/21/24 3:45 PM Chest Portable Feroz Frank; Auth (Kyree ified) Notes: (Chest Portable) Reason For Exam: Line/Tube Placement;Other: RESULT: Chest Portable Chest Portable INDICATION: Hx of Present Illness: Pt coming from home, with c o diarrhea x 3d, non bloody emesis x2d, with wittnessed syncopal episodes by family, hx of chrons dx, consult with [facility] on 02 08. On Prednisone taper 10mg day; Reason: Other:; Line Tube Placement; Clinical Question(s): Other:; Confirm Position, Assess for Complication COMPARISON: 01/21/2024 FINDINGS: LINES AND TUBES: Enterogastric tube remains in place LUNGS AND PLEURA: No evidence of confluent airspace opacity, lung consolidation or pulmonary vascular redistribution. Costophrenic sulci are maintained. No evidence of pneumothorax. HEART, MEDIASTINUM AND SHAAN: Cardiomediastinal silhouette is within normal limits in size. BONES AND SOFT TISSUES: No acute osseous abnormality. Prominent air-filled small bowel loops are present within the included portion of the upper abdomen. IMPRESSION: No evidence of active cardiopulmonary process Enterogastric tube remains in place Prominent air-filled small bowel loops within the included portion of the upper abdomen WSN: [id number] Ordering Physician: Rich Costello Dictated By: Lorenzo Martinez Jr, MD Dictated Date/Time: 01/21/24 3:51 pm Reviewed By: Lorenzo Martinez Jr, MD Signed By: Lorenzo Martinez Jr, MD Signed Date/Time: 01/21/24 3:51 pm Transcribed By: ANITA Transcribed Date/Time: 01/21/24 3:50 pm * Exam Date Time Procedure Performing Provider Status 01/21/24 2:10 PM Chest Portable Karl Jose; Andrea (Ve rified) Notes: (Chest Portable) Reason For Exam: Tube Placement RESULT: Chest Portable Chest Portable Hx of Present Illness: Pt coming from home, with c o diarrhea x 3d, non bloody emesis x 2d, with wittnessed syncopal episodes by family, hx of chrons dx, consult with [facility] on 6 7. On Prednisone taper 10mg day; Reason: Tube Placement; Clinical Question(s): Tube Placement COMPARISON: None. FINDINGS: LINES AND TUBES: Enteric tube in stomach. LUNGS AND PLEURA: Clear lungs. Normal pulmonary vascularity. No pleural effusion. No pneumothorax. HEART, MEDIASTINUM AND SHAAN: Heart is normal in size. Normal mediastinal and hilar contour. BONES AND SOFT TISSUES: No acute abnormality. IMPRESSION: Enteric tube in stomach. WSN: [id number] Ordering Physician: Rich Costello Dictated By: Jamil Blakely MD Dictated Date/Time: 01/21/24 2:15 pm Reviewed By: Jamil Blakely MD Signed By: Jamil Blakely MD Signed Date/Time: 01/21/24 2:15 pm Transcribed By: ANITA Transcribed Date/Time: 01/21/24 2:15 pm * Exam Date Time Procedure Performing Provider Status 01/21/24 12:[address] Abd/Pelvis W/ IV Contrast Only Kim Arndt; Andrea (Verified) Notes: (CT Abd/Pelvis W/ IV Contrast Only) Reason For Exam: LLQ abdominal pain;Other: RESULT: CT Abd/Pelvis W/ IV Contrast Only CT Abd/Pelvis W/ IV Contrast Only Hx of Present Illness: Pt coming from home, with c o diarrhea x 3d, non bloody emesis x 2d, with wittnessed syncopal episodes by family, hx of chrons dx, consult with [facility] on 6 7. On Prednisone taper 10mg day; Reason: Other:; LLQ abdominal pain; Clinical Question(s): Diverticulitis; Order Comment: TECHNIQUE: Spiral CT through the abdomen and pelvis with IV contrast formatted in 3 planes. 100 cc of Omnipaque 300 was administered intravenously. This study was performed without oral contrast. Weight-based protocol using automatic tube modulation was used to optimize exposure parameters. CTDIvol Body: 10.50 mGy, DLP Body: 570 mGy*cm. COMPARISON: None. FINDINGS: Coin Counter And Wrapper View Findings, Lines and Tubes: None. Visualized Chest: Lung bases are clear. No pleural effusion. The heart is normal in size. No pericardial effusion. Diaphragm: Normal. Liver: Normal. Gallbladder: Cholelithiasis without evidence of acute cholecystitis. Bile ducts: No biliary ductal dilation. Spleen: Normal. Pancreas: Normal. Adrenal glands: Normal. Kidneys and ureters: No hydronephrosis, stones, or suspicious masses. Bladder: Normal. Reproductive organs: Unremarkable. Stomach, small bowel, and large bowel: Underdistended stomach. Proximal small bowel loops are normal in caliber. Diffuse distention of small bowel loops which measure up to 5.5 cm in the pelvis (series 201 image 115), and 5 cm in the right upper quadrant (series 201 image 58). There is an abrupt transition point in the distal ileum approximately 17-18 cm proximal to the ileocecal valve with severe wall thickening up to 1.4 cm, mucosal hyperemia, and mesenteric prominence. This segment is entirely decompressed, with direct upstream distention up to 7.3 cm measured in the coronal plane (series 20 image 47). Probable early transmural disease, with soft tissue extending beyond the wall within the mesenteric aspect of the bowel superiorly (series 202 image 57). The involved segment measures syeda roximately 6 cm in length. No fistula or abscess. Mild reactive mesenteric adenopathy in this region. Distal most ileum is decompressed with pseudosacculation and distal submucosal fat deposition. Colon is entirely decompressed without acute abnormality. Appendix: Normal. Peritoneum and retroperitoneum: No ascites or pneumoperitoneum. No omental or mesenteric lesions. Lymph nodes: No enlarged lymph nodes. Blood vessels: Normal. No aneurysm. No evidence of venous thrombosis. Abdominal and pelvic wall: Unremarkable. Bones: No acute abnormality. IMPRESSION: Active inflammatory changes of Crohn's disease with a 6 cm segment of active inflammatory change approximately 17-18 cm above the ileocecal valve that results in high-grade upstream small bowel obstruction. There is evidence of early transmural disease at this level without fistula or abscess. The impression above was relayed to Rich Costello DO by Dr. Eusebio Esposito over the phone on 01/21/2024 at 12:57 PM. WSN: [id number] Ordering Physician: Rich Costello Dictated By: Eusebio Esposito MD Dictated Date/Time: 01/21/24 12:59 p Reviewed By: Eusebio Esposito MD Signed By: Eusebio Esposito MD Signed Date/Time: 01/21/24 12:59 pm Transcribed By: ANITA Transcribed Date/Time: 01/21/24 12:49 pm Vital Signs Most recent to oldest [Reference Range]: 1 2 3 Height 162 cm (01/25/24 8:53 AM) 162 cm (01/24/24 9:40 PM) 162 cm (01/23/24 2:50 PM) Weight 52 kg (01/21/24 6:23 PM) Oxygen Saturation [94-100 %] 99 % (01/25/24 12:42 PM) 100 % (01/25/24 8:53 AM) 96 % (01/25/24 8:05 AM) Pulse Rate [55-90 bpm] 87 bpm (01/25/24 12:42 PM) 90 bpm (01/25/24 8:53 AM) 78 bpm (01/25/24 8:05 AM) Body Mass Index [18.5-24.99 kg/m2] 19.81 kg/m2 (01/21/24 6:23 PM) Blood Pressure [90-138/55-84 mm Hg] 113/67mm Hg (01/25/24 12:42 PM) 96/39mm Hg (01/25/24 8:53 AM) 98/86mm Hg (01/25/24 8:05 AM) Respiratory Rate [16-30 br/min] 18 br/min (01/25/24 12:42 PM) 18 br/min (01/25/24 8:05 AM) 18 br/min (01/25/24 3:00 AM) Temperature [96.8-100.4 DegF] 97.7 DegF (01/25/24 12:42 PM) 97.5 DegF (01/25/24 8:05 AM) 98.3 DegF (01/25/24 3:00 AM) Mode of Delivery (Oxygen) Room air (01/25/24 12:42 PM) Room air (01/25/24 8:53 AM) Room air (01/25/24 8:05 AM) Blood pressure sites Arm, right (01/25/24 12:42 PM) Arm, left (01/25/24 8:53 AM) Arm, right (01/25/24 8:05 AM) Temperature Route Oral (01/25/24 12:42 PM) Oral (01/25/24 8:05 AM) Oral (01/25/24 3:00 AM) Dry Weight 52 kg (01/21/24 6:23 PM) EKG study * Event Display: ECG 12-Lead Authored Date: Please click on pdf link to open report * Event Display: ECG 12-Lead Authored Date: Ventricular Rate: 83 BPM Atrial Rate: 83 BPM P-R Interval: 140 ms QRS Duration: 70 ms Q-T Interval: 336 ms QTC Calculation(Bazett): 394 ms P [place]: 60 degrees R [place]: 48 degrees T [place]: 54 degrees Normal sinus rhythm Septal infarct , age undetermined Abnormal ECG No previous ECGs available Confirmed by RICH AMADOR MD ([id number]) on 01/22/2024 8:48:31 AM [place] * Italia Vela RN: PERFORM, SIGN, VERIFY, SIGN, MODIFY Event Display: Progress [facility] Authored Date: [id number] Patient: NUVIA MCBRIDE Age: 48 years Sex: Female : 1975 Associated Diagnoses: None Author: Italia Vela RN Findings Problem Related to Alteration in Gastrointestinal : Alteration in Gastrointestinal Func/new 01/25/2024 9:00 EDT Alteration in GI status Related to Other: SBO Goals & Outcomes, Gastrointestinal Establish a regular pattern of elimination for pt, Nutritional intake is adequate for metabolic needs, Pt will achieve normal/improved fluid balance, Pt will have a bowel movement prior to discharge, Pt will maintain adequate GI function appropriate for pt, Ptwill maintain normal elimination patterns, Pt will resume/maintain adequate hemodynamic status, Pt w ill tolerate age appropriate diet prior to discharge Interventions, Gastrointestinal Assess/monitor abdomen for distention, tenderness, Assess/monitor abdominal girth & bowel function, Assess/monitor bowel pattern, bowel sounds, flatus, Assess/monitor number of bowel movements, Assess/monitor color, quantity, quality, consistency of stoo, Assess/monitor pt for nausea, vomiting, Assess/monitor effects of re-hydration, Assess/monitor intake &output BH Goals/Interventions, Gastrointestinal Yes Gastrointestinal, Problem Start 01/21/2024 20:06 Reviewed plan with, Gastrointestinal Patient Patient Progression, Gastrointestinal Pt progressing according to plan . Nursing Data Gastrointestinal Data. : Gastrointestinal Data. 01/25/2024 8:10 EDT Gastrointestinal Symptoms Belching Abdomen Flat, Soft, Non-tender Bowel Sounds LUQ Present Bowel Sounds RUQ Present Bowel Sounds LLQ Present Bowel Sounds RLQ Present Last Bowel Movement 01/25/2024 Stool color and description Lumpy, sausage shaped GI WNL except (Modified) . Evaluation P: Alteration in gastrointestinal function I: See interventions listed above E: Pt alert and oriented x4. Pain managed with rest and repositioning, declined scheduled Tylenol and denied pain.Pt. on Regular diet, eating small amts. BP 98/86, PA Bean notified. Voiding cyu. LBM01/24. +bs./abdomen soft/flat/non- tender. Skin intact. Lungs CTA. Pt OOB independently. ambulating. Will continue to monitor. . . * Italia Vela RN: PERFORM Event Display: Progress Note Hospital Authored Date: Discharge instructions reviewed with pt and all questions answered. Left ambulatory at 1345 * Adela Duenas RN: VERIFY, MODIFY, SIGN, PERFORM, SIGN Event Display: Progress Note Hospital Authored Date: Patient: NUVIA MCBRIDE Age: 48 years Sex: Female : 1975 Associated Diagnoses: None Author: Henrique BILLINGSLEY, Adela Findings Problem Related to Alteration in Gastrointestinal : Alteration in Gastrointestinal Func/new 01/24/2024 20:00 EDT Alteration in GI status Related to Other: SBO Goals & Outcomes, Gastrointestinal Establish a regular pattern of elimination for pt, Nutritional intake is adequate for metabolic needs, Pt will achieve normal/improved fluid balance, Pt will have a bowel movement prior to discharge, Pt will maintain adequate GI function appropriate for pt, Ptwill maintain normal elimination patterns, Pt will resume/maintain adequate hemodynamic status, Pt w ill tolerate age appropriate diet prior to discharge Interventions, Gastrointestinal Assess/monitor abdomen for distention, tenderness, Assess/monitor abdominal girth & bowel function, Assess/monitor bowel pattern, bowel sounds, flatus, Assess/monitor number of bowel movements, Assess/monitor color, quantity, quality, consistency of stoo, Assess/monitor pt for nausea, vomiting, Assess/monitor intake & output, Assess if pt tolerating diet, DVT prophylaxis as ordered, Taking PO: Encourage/monitor intake & swallowing ability, Teach/encourage deep breath & cough exercises, Teach/encourage use of incentive spirometer Goals/Interventions, Gastrointestinal Yes Gastrointestinal, Problem Start 01/21/2024 20:06 Reviewed plan with, Gastrointestinal Patient Patient Progression, Gastrointestinal Pt progressing according to plan . Narrative/Incidental P: Alteration to Gastrointestinal Function I: See interventions listed above E: Pt is alert and oriented x4, VSS. Pain 10/10, see MAR for medications given. Denies dizziness, c/o of frontal headache; treated with Tylenol (+effect). +CMS, +pp, and good capillary refill. No edema present, SCDs not in use however fully ambulatory. Lungs were clear to auscultation, denies shortness of breath and chest pain. IS use encouraged, reached 2250mL. Positive bowel sounds. Abdomen soft, round, and tender to all 4 quadrants. Passing minimal gas, +nausea treated with prn Zofran with +effect. Continues to have poor p.o intake, last bowel movement 01/23 (per pt report was a liquid bm).Pt is voiding and ambulates independently. Skin is intact. See CIS for full assessment. Call jackson is within reach and bed set to the lowest position. BP soft (90's systolic) throughout night, team notified. Per DO Fritz, x1 500mL LR bolus given with no effect. Team paged in regards to this, per DO Fritz page if MAP goes below 65 or pt becomes asymptomatic/mentation changes. No additional orders at this time.. * Paul MOSQUERA, Trevon H: PERFORM Event Display: Progress Note Hospital Authored Date: Patient: ??NUVIA MCBRIDE ? Age:??48 Years?Sex:??Female?:??1975? GI Follow up: ?? Events noted and chart reviewed Patient is doing well off the NG tube She denies nausea or vomiting at this time.?? Was able to tolerate some solids this afternoon. According to patient she has her surgery scheduled for February 13. ? Crohn's disease Small bowel obstruction ?? 48-year-old female with reported past medical history of Crohn's disease currently on a prednisone taper, presented to the hospital with abdominal pain, decreased p.o. intake, distention found to have small bowel obstruction and admitted under colorectal surgery service.?? Patient has had a hard time getting adequate control of her Crohn's disease.?? She has tried Humira and Rinvoq and is currently not on any biologic agents.?? Reports multiple episodes with obstruction like symptoms and hospitalizations at [facility].?? Most recently discharged with prednisone taper on 12/19.?? She was apparently on 40 Mg p.o. prednisone for a month for decreasing it significantly to 20 Mg p.o. last Monday and since then she has been having obstructive symptoms.?? CT imaging is impressive for 6 cm segmentof active disease 18 cm above IC valve with significant SBO with a max distention up to 7.3 cm.?? No fistulas or abscesses noted.?? It seems like patient has failed therapy, though she has not yet tried infliximab.?? At this time patient seems to be doing better on steroids and has passed her NG clamp trial. Plan for elective surgery on February 13. Pt to follow low fiber diet and report back to EDif she develops signs of SBO in which case an emergent surgery might be considered. ?? We have recommended a prolonged taper with steroids.?? Can also consider overlapping the steroids with advanced therapy which would not interfere with surgical healing but we will defer this to her primary egg gatherer at [facility].?? Currently the plan is to continue on the steroid taper as below and to proceed with elective surgery on February 13. ?? Recommendations: P.o. prednisone taper.?? 25 Mg p.o. once daily and decrease by 5 Mg every 2 weeks Recommend obtaining daily CRP while in-house Follow-up closely with her primary egg gatherer and consider initiation of advanced therapy which would not interfere with surgical healing Patient advised to avoid vegetables and high-fiber diet and return to ED if she develops signs of obstruction GI will sign off ? The patient's case and management was discussed with Dr. Manpreet Miller MD Gastroenterology Fellow PGY4?? * Manpreet MOSQUERA, Michelle: PERFORM Event Display: Progress Note Hospital Authored Date: ?Discussed with the fellow and agree with the findings and plan as documented in the fellow's note.?? Consult note * Paul MOSQUERA, Trevon H: PERFORM Paul MOSQUERA, Trevon H: PERFORM, MODIFY Paul MOSQUERA, Trevon H: MODIFY, MODIFY Paul MOSQUERA, Trevon H: MODIFY Event Display: Consultation Note Authored Date: Patient: ??NUVIA MCBRIDE ? Age:??48 Years?Sex:??Female?:??1975?? Referrring Provider Not on Staff, Referring MD Chief Complaint Pt coming from home, with c/o diarrhea x 3d, non bloody emesis x 2d, with wittnessed syncopal episodes by family, hx of chrons dx, consult with [facility] on 02/08. On Prednisone taper 10mg/day History of Present Illness ?? 48-year-old female with reported past medical history of Crohn's disease currently on a prednisone taper, presented to the hospital with abdominal pain, decreased p.o. intake, distention found to have small bowel obstruction and admitted under colorectal surgery service. ?? Patient was diagnosed with Crohn's disease in 2021 and follows with Valerie TRIVEDI (Kristie HUNT).?? Patienthas had a colonoscopy with biopsies proving Crohn's disease in the terminal ileum according to prior notes.?? Patient was previously on Humira but was apparently having to many side effects.?? She was recently started on Rinvoq this year however developed shingles soon thereafter and hence discontinued it.?? Patient apparently has been to [facility] with obstructive symptoms multiple times.?? She most recently was at [facility] for her Crohn's disease flare and was discharged on 12/19 with a prednisone taper.?? She describes that she was on 40 Mg of prednisone for a month and has gone down to 20 Mg from 01/16.?? She is currently not on any biologic or long-term therapy.?? Patient has not had any bowel surgeries.?? She smokes on and off 1-2 cigarettes a day.?? Denies any marijuana or recreational drug use.?? Denies any significant alcohol intake.?? Mother had colon cancer at the age of 59 and she denies any family history of IBD. ?? Patient was found to be vitally stable in the ED.?? She was having significant abdominal discomfortparticularly in the right lower quadrant with nausea.?? She states that she has hemorrhoids and often times sees streaks of blood on wiping but she has not had bleeding in the recent few days.?? She mostly complains of diarrhea with liquid stool.?? She is currently passing gas.?? Patient's blood work is largely unremarkable with normal LFTs and hemoglobin of 10.9 slightly lower than her baseline of 12.?? Patient underwent CT imaging that showed concern for active Crohn's disease with a 6 cm segment of active inflammatory change in the small bowel with small bowel obstruction and transition point.?? Details given below.?? Patient put on bowel rest and NGT placed on suction and admitted to the surgical service. ? RESULT: CT Abd/Pelvis W/ IV Contrast Only CT Abd/Pelvis W/ IV Contrast Only IMPRESSION: ?? Active inflammatory changes of Crohn's disease with a 6 cm segment of active inflammatory changeapproximately 17-18 cm above the ileocecal valve that results in high-grade upstream small bowel obstruction. There is evidence of early transmural disease at this level without fistula or abscess. ? Review of Systems Full review of systems completed and was negative except as mentioned above in HPI Physical Exam Vitals & Measurements T:??98.0?F?? HR:??82??(Peripheral)?? RR:??16?? BP:??95/72?? SpO2:??99%?? Constitutional: Alert, in no distress. NG tube in place with mostly clear output Mental Status: Oriented to person, place and time. Respiratory: Clear to auscultation. Gastrointestinal: Abdomen soft, mild generalized tenderness, midlly distended.??No pulsatile mass. No hepatosplenomegaly. Neurologic: Cranial nerves II-XII grossly intact. No focal neurological deficits. Moves all extremities spontaneously. Skin: No suspicious lesions noted. No petechiae or purpura.??No jaundice Musculoskeletal: No cyanosis or clubbing. No gross deformities. Normal range of motion. Psychiatric: Appropriate mood and affect Assessment/Plan ?? Crohn's disease Small bowel obstruction ?? 48-year-old female with reported past medical history of Crohn's disease currently on a prednisone taper, presented to the hospital with abdominal pain, decreased p.o. intake, distention found to have small bowel obstruction and admitted under colorectal surgery service.?? Patient has had a hard time getting adequate control of her Crohn's disease.?? She has tried Humira and Rinvoq and is currently not on any biologic agents.?? Reports multiple episodes with obstruction like symptoms and hospitalizations at [facility].?? Most recently discharged with prednisone taper on 12/19.?? Currently seems to be on 20 Mg p.o. prednisone once daily and seems to have had SBO despite being on prednisone.?? CTimaging is impressive for 6 cm segment of active disease 18 cm above IC valve with significant SBO with a max distention up to 7.3 cm.?? No fistulas or abscesses noted.?? It seems like patient has failed therapy, though she has not yet tried infliximab.?? It is also interesting that she has developed SBO while on a prednisone taper. ?? Plan: Please obtain ESR Trend daily CRP Please obtain fecal calprotectin if able At this time use 20 Mg of IV Solu-Medrol once daily given SBO SBO management per primary team GI will continue to follow along ? Thank you for referring this patient to the Division of Gastroenterology, [facility].?Please feel free to reach out with any questions or concerns. ?? The patient's case and management was discussed with Dr. Pat Miller MD Gastroenterology Fellow PGY4?? Division of Gastroenterology, [facility] - [facility] [email or web address] (The above document was created using Sure[employer] voice recognition software. As such, top and seat cover fitter errors may occur. Please contact the provider for additional questions and if clarification is needed.)? Attending Attestation:??I have seen and evaluated this patient. I have discussed the case and its management with the fellow and agree with the findings and plan as documented in the fellow's note. ?? Patient with history of stricturing Crohn's disease, apparently has been treated with anti-TNF (adalimumab) in the past, and upaticitinib (though for only 1 dose), presenting after recent admission for SBO at [facility], for which she was started on a prednisone taper.?? She presents again with an SBOin the distal ileum approximately 6 cm in length with upstream dilation of the small bowel.?? This comes in the context of having abruptly decreased her prednisone taper dosing from 40 mg (for which she had been on for 4 weeks) to 20 mg. ?? I think she likely has a component of both fibrostenotic disease and inflammatory disease, considering she has responded to prednisone therapy in the past.?? However, given her overall history, and chronicity of disease I feel that she is on the road to surgical resection.?? This may be a good option for her as it would get rid of the diseased portion of her small bowel, which could act as a reset for her. ?? I discussed the case with Dr. Vasquez in colorectal surgery.?? Ideally, would want relief of the SBO,and decrease in small bowel distention prior to surgery so that way a primary anastomosis could be performed rather than an a two-stage procedure.?? Since she has responded well to steroids in the past, we can consider starting her on a repeat steroid taper.?? Ideally, would have a longer taper so that way there is a greater anti-inflammatory steroid effect. ?? It is unclear however if patient would be willing to undergo a long taper (8 weeks).?? We will revisit steroid dosing based on further discussion that patient will have with colorectal surgery. ?? Kesha Stewart MD [facility] Gastroenterology Problem List/Past Medical History Ongoing Latent tuberculosis by blood test Medications Inpatient No active inpatient medications Home acetaminophen-oxycodone 500 mg-5 mg oral capsule, See Instructions, PRN Crutches, See Instructions rifampin 300 mg oral capsule, 600 mg= 2 capsule, By Mouth, Daily, 3 refills Allergies NKA Lab Results Test Name Test Result Date/Time WBC 10.0 k/mm3 01/21/2024 12:09 EDT RBC 3.67 m/mm3 01/21/2024 12:09 EDT Hgb 10.9 Gm/dL 01/21/2024 12:09 EDT Hct 34.3 % 01/21/2024 12:09 EDT MCV 93.5 femtoliters 01/21/2024 12:09 EDT MCH 29.7 pg 01/21/2024 12:09 EDT MCHC 31.8 g/dL 01/21/2024 12:09 EDT Platelet Count 426 k/mm3 01/21/2024 12:09 EDT RDW-SD 55.8 femtoliters 01/21/2024 12:09 EDT MPV 8.8 femtoliters 01/21/2024 12:09 EDT Nucleated RBC (Automated) 0.0 #/100 WBC'S 01/21/2024 12:09 EDT Abs. NRBC 0.0 k/mm3 01/21/2024 12:09 EDT Abs. Neut 7.5 k/mm3 01/21/2024 12:09 EDT Abs. Lymph 2.2 k/mm3 01/21/2024 12:09 EDT Abs. [place]oughton 0.2 k/mm3 01/21/2024 12:09 EDT Abs. Eo 0.0 k/mm3 01/21/2024 12:09 EDT Abs. Baso 0.0 k/mm3 01/21/2024 12:09 EDT Neut % 75.0 % 01/21/2024 12:09 EDT Lymph % 22.2 % 01/21/2024 12:09 EDT Houghton % 2.1 % 01/21/2024 12:09 EDT Eos % 0.1 % 01/21/2024 12:09 EDT Baso % 0.3 % 01/21/2024 12:09 EDT Imm Gran 0.3 % 01/21/2024 12:09 EDT Abs. Imm Gran 0.0 k/mm3 01/21/2024 12:09 EDT Sodium 138 mmol/L 01/21/2024 12:09 EDT Potassium 4.5 mmol/L 01/21/2024 12:09 EDT Chloride 102 mmol/L 01/21/2024 12:09 EDT Bicarbonate Level 22 mmol/L 01/21/2024 12:09 EDT Anion Gap 14 01/21/2024 12:09 EDT Glucose Level 113 mg/dL 01/21/2024 12:09 EDT BUN 21 mg/dL 01/21/2024 12:09 EDT Creatinine-Blood 0.57 mg/dL 01/21/2024 12:09 EDT Estimated GFR Creatinine 112 ML/MIN/1.73 M2 01/21/2024 12:09 EDT Calcium 9.8 mg/dL 01/21/2024 12:09 EDT Calcium, Ionized pH Corrected 1.35 mmol/L 01/21/2024 12:09 EDT Magnesium 1.7 mg/dL 01/21/2024 12:09 EDT Protein, Total 6.1 Gm/dL 01/21/2024 12:09 EDT Albumin 3.4 Gm/dL 01/21/2024 12:09 EDT AG Ratio 1.3 01/21/2024 12:09 EDT Alkaline Phosphatase 75 units/L 01/21/2024 12:09 EDT Lipase 13 units/L 01/21/2024 12:09 EDT AST (SGOT) 18 units/L 01/21/2024 12:09 EDT ALT (SGPT) 9 units/L 01/21/2024 12:09 EDT Bilirubin, Total <0.2 mg/dL 01/21/2024 12:09 EDT Lactate 1.5 mmol/L 01/21/2024 12:09 EDT * Jose D Lyn MD: PERFORM, MODIFY Event Display: Consultation Note Authored Date: Patient: ??NUVIA MCBRIDE ? Age:??48 Years?Sex:??Female?:??1975?? Chief Complaint/Reason for Consult Crohn's disease, SBO History of Present Illness Nuvia Mcbride is a 48F with history of Crohn's disease who??is presenting to the [facility] with abdominal pain??and N/V for whom colorectal surgery is being consulted for evaluation of a??small bowel obstruction.?? Patient??was diagnosed??with Crohn's disease in 2021 after presenting with obstructive symptoms. ??Since??her initial diagnosis patient has failed to gain adequate control,??requiring multiple admissions to [facility]??with??obstructive like symptoms.?? She has been trialed on Humira??which failed.?? She was most recently trialed??with Rinvoq??(December)??however??she developed??an adverse reaction and stopped it.?? She reports that??given??recurrence of??flares and obstructions,??she was planned to see Dr. Vasquez??in the colorectal office on 02/08??for evaluation of surgical resection??of the diseased segment of terminal ileum.?? Patient reports that??she was last admitted??on 12/19 with obstructive symptoms.?? She was discharged??on a prednisone taper??of 40??daily, however? ?over the last??week??has tapered down to 20 daily.?? Her most recent episode started approximately3 days ago??with diffuse abdominal pain??and nausea vomiting.?? Patient reports her symptoms feel exactly like prior Crohn's flare presentations.?? For 3 days??she has been able to tolerate minimal p.o., and suffered from??2??presyncopal events, in addition to weakness.?? She reports her last bowelmovement was this morning.?? Does not know??when she last plans fevers.?? As per the instructions of her egg gatherer, she was told if she had recurrent obstructive symptoms, to present??to [facility]??for evaluation as she may move??consultation with a colorectal specialist. Review of Systems Constitutional:??Positive for??weight loss. Respiratory: No SOB, cough, or dyspnea Cardiovascular: No chest pain, flutters or palpitations?? Gastrointestinal:??Positive for??abdominal pain, nausea vomiting. Genitourinary:??No frequency or burning with urination. Neurologic:??No CALDERON, dizziness, syncope,??no changes in motor or sensory function.??No change in bowel or bladder control. Skin:??No rashes, bruises??or itching. Endocrine:??No heat or cold intolerance. Psychiatric:??No depression or anxiety. Physical Exam Vitals & Measurements T:??98.0?F?? HR:??80??(Peripheral)?? RR:??20?? BP:??109/67?? SpO2:??97%?? Constitutional: Well appearing, no acute distress, AOx3 HEENT: NGT with 100cc clear gastric content. Respiratory: Normal WOB, CTA b/l. Cardiovascular: NSR on the monitor. Audible S1 S2 regular. Abdominal: Moderate build abdomen,??mildly protuberant, distended??and tympanitic.?? Mild to moderate diffuse??tenderness to palpation.?? No rebound or guarding. Neurologic: Cranial nerves II-XII intact. Motor and sensation grossly intact b/l. Extremities: No wounds, bruises or injuries. No gross deformities. ROM normal. Skin: No rashes or lesions. No petechiae or purpura.?? Assessment/Plan Nuvia Mcbride is a 48F with history of Crohn's disease who??is presenting to the [facility] with abdominal pain??and N/V for whom colorectal surgery is being consulted for evaluation of a??small bowel obstruction.?Patient??was diagnosed with Crohn's disease in 2021??and since then??has had multiple presentations to [facility]??with obstructive symptoms.?? She has failed??revoked??and Humira??and is currently??on a prednisone taper from most recent admission on 12/19.?? She is presenting with a 3-day history??of abdominal pain??and p.o. intolerance.?? On exam??she is diffusely tender to palpation, most prominently in the right lower quadrant??however without rebound or guarding.?? Her CT scan??shows evidence??of small bowel dilation??(up to 7 cm)??with an abrupt transition point within??the terminal ileum.?? She has a segment of disease terminal ileum??measuring up to??6 cm in length.??She will required admission for NGT decompression, bowel rest and operative planning. Will consult GI for evaluation of Crohn's flare. ?? Plan - Admit Colorectal -??NPO IVF - NGT LWS - GI c/s?? - Nutritional labs - Albumin 3.4, pending pre-albumin - DVT ppx ?? Discussed with Dr. Vasquez Colorectal [id number] Problem List/Past Medical History Crohn's disease Procedure/Surgical History None Home Medications Loperamide Zofran Prednisone Allergies NKA Social History Active 09/06 ppd smoker 10 pack years Abstinent from alcohol No drug use Family History No family history recorded. Radiology RESULT: CT Abd/Pelvis W/ IV Contrast Only CT Abd/Pelvis W/ IV Contrast Only? Hx of Present Illness: Pt coming from home, with c o diarrhea x 3d, non bloody emesis x 2d, with wittnessed syncopal episodes by family, hx of chrons dx, consult with [facility] on 02 08. On Prednisone taper 10mg day; Reason: Other:; LLQ abdominal pain; Clinical Question(s): Diverticulitis; Order Comment: ?? TECHNIQUE: Spiral CT through the abdomen and pelvis with IV contrast formatted in 3 planes. 100 cc of Omnipaque 300 was administered intravenously. This study was performed without oral contrast. Weight-based protocol using automatic tube modulation was used to optimize exposure parameters.? CTDIvol Body: 10.50 mGy, ??DLP Body: 570 mGy*cm. ? COMPARISON: None. ?? FINDINGS:? Coin Counter And Wrapper View Findings, Lines and Tubes: None. ?? Visualized Chest: Lung bases are clear. No pleural effusion. The heart is normal in size. No pericardial effusion. ?? Diaphragm: Normal. ?? Liver: Normal. ?? Gallbladder: Cholelithiasis without evidence of acute cholecystitis. ?? Bile ducts: No biliary ductal dilation. ?? Spleen: Normal. ?? Pancreas: Normal. ?? Adrenal glands: Normal. ?? Kidneys and ureters: No hydronephrosis, stones, or suspicious masses. ?? Bladder: Normal. ?? Reproductive organs: Unremarkable. ?? Stomach, small bowel, and large bowel: Underdistended stomach. Proximal small bowel loops are normal in caliber. Diffuse distention of small bowel loops which measure up to 5.5 cm in the pelvis (series 201 image 115), and 5 cm in the right upper quadrant (series 201 image 58). There is an abrupt transition point in the distal ileum approximately 17-18 cm proximal to the ileocecal valve with severe wall thickening up to 1.4 cm, mucosal hyperemia, and mesenteric prominence. This segment is entirely decompressed, with direct upstream distention up to 7.3 cm measured in the coronal plane (series 20 image 47). Probable early transmural disease, with soft tissue extending beyond the wall within the mesenteric aspect of the bowel superiorly (series 202 image 57). The involved segment measures syeda roximately 6 cm in length. No fistula or abscess. Mild reactive mesenteric adenopathy in this region. Distal most ileum is decompressed with pseudosacculation and distal submucosal fat deposition. Colon is entirely decompressed without acute abnormality. ?? Appendix: Normal. ?? Peritoneum and retroperitoneum: No ascites or pneumoperitoneum. No omental or mesenteric lesions. ?? Lymph nodes: No enlarged lymph nodes. ?? Blood vessels: Normal. No aneurysm. No evidence of venous thrombosis. ?? Abdominal and pelvic wall: Unremarkable. ?? Bones: No acute abnormality. ?? IMPRESSION:? Active inflammatory changes of Crohn's disease with a 6 cm segment of active inflammatory change approximately 17-18 cm above the ileocecal valve that results in high-grade upstream small bowel obstruction. There is evidence of early transmural disease at this level without fistula or abscess. Lab Results Labs Last 24 Hours BLOOD COUNT & DIFF ? Event Name?? Event Result?? Date/Time?? WBC 10 k/mm3 01/21/24 12:09:00 RBC 3.67 m/mm3??Low 01/21/24 12:09:00 Hgb 10.9 Gm/dL??Low 01/21/24 12:09:00 Hct 34.3 %??Low 01/21/24 12:09:00 MCV 93.5 femtoliters 01/21/24 12:09:00 MCH 29.7 pg 01/21/24 12:09:00 MCHC 31.8 g/dL??Low 01/21/24 12:09:00 Platelet Count 426 k/mm3 01/21/24 12:09:00 MPV 8.8 femtoliters??Low 01/21/24 12:09:00 Nucleated RBC (Automated) 0 #/100 WBC'S 01/21/24 12:09:00 ? CHEM GENERAL ? Event Name?? Event Result?? Date/Time?? Sodium 138 mmol/L 01/21/24 12:09:00 Chloride 102 mmol/L 01/21/24 12:09:00 Bicarbonate Level 22 mmol/L 01/21/24 12:09:00 Anion Gap 14 01/21/24 12:09:00 Glucose Level 113 mg/dL??High 01/21/24 12:09:00 BUN 21 mg/dL??High 01/21/24 12:09:00 Creatinine-Blood 0.57 mg/dL 01/21/24 12:09:00 Calcium, Ionized pH Corrected 1.35 mmol/L??High 01/21/24 12:09:00 Magnesium 1.7 mg/dL 01/21/24 12:09:00 Alkaline Phosphatase 75 units/L 01/21/24 12:09:00 Lipase 13 units/L 01/21/24 12:09:00 AST (SGOT) 18 units/L 01/21/24 12:09:00 ALT (SGPT) 9 units/L 01/21/24 12:09:00 Bilirubin, Total <0.2 01/21/24 12:09:00 ? * Pedro MOSQUERA, Bhavani Vargas: PERFORM Event Display: Consultation Note Authored Date: Attending Attestation: I have seen and evaluated this patient.?? I have discussed the case and its management with the resident and agree with the findings and plan as documented in the resident???s note. a 48 year old female with Crohn's since 2021 and a known ileal stricture who has been on multiple occasions including Humira, written Diana, as well as prednisone.?? 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 She tells me she has had multiple admissions for obstructive symptoms with her last being in mid December.?? On examination she is soft and has some mild right lower quadrant tenderness. ? ?There are no peritoneal signs. ??Her imaging??reveals an ileal stricture.?? She has an NG tube in place which is adequately draining.?? We will resuscitate her with IV fluid and monitor her exam as well as her bowel function.?? We have consulted GI to discuss??the role for??a steroid taper in the situation.?? Ideally, if the obstruction resolves we would plan for an interim resection of the ileocolic region.?? If she is unable to resolve the obstruction we would perform the resection with temporary ileostomy and mucous fistula.?? I have reviewed the patient's??labs, vitals, exam, imaging, and I have spent time with her today discussing??surgical options.?? Additional details can be found in our attached admission note. ?? Total time: 65 minutes on record review, imaging review, in-person time, care coordination, and documentation. Note * Italia Vela RN: PERFORM Event Display: Discharge/Transfer Note Hospital Authored Date: [id number] Nursing Discharge Note Entered On: 01/25/2024 14:20 EDT Performed On: 01/25/2024 14:20 EDT by Italia Vela RN Nursing Discharge Note 2 Discharge Time : 01/25/2024 13:45 EDT Discharge Level of Care at Discharge : Home/Intermediate/Foster Care Patient Left Unit Via : Ambulatory Patient Accompanied Off Unit with : Responsible adult DC Instructions Provided & Signed by Pt : Yes Patient Understands D/C Instructions : Yes Patient Instructions Discharge Signed : Yes Did Pt have Specialty Bed or Wound Vac : No Italia Vela RN - 01/25/2024 14:20 EDT * Shoshana Sánchez: PERFORM Event Display: Discharge/Transfer Note Hospital Authored Date: Patient: ??NUVIA MCBRIDE ? Age:??48 Years?Sex:??Female?:??1975?? Admit Date Admission Date: 01/21/2024 Discharge Date 01/25/2024 Discharge Diagnoses 1.??Crohn disease, 01/25/2024 2.??Small bowel obstruction, 01/25/2024 Abdominal pain, 01/21/2024 General medical, 01/21/2024 Hospital Course Pt is a 48 y/o female with h/o??poorly controlled Crohn's disease, with??multiple admissions to [facility] for obstructive symptoms, who??presented to the??ED with c/o??abdominal pain, nausea and vomiting.??A CT scan of the abd/pelvis was obtained which showed??a 6 cm segment of active inflammatory change approximately 17-18 cm above the ileocecal valve,??resulting??in high-grade small bowel obstruction with??evidence of early transmural disease at this level without fistula or abscess. She was admitted and kept??NPO with??IVF hydration. An??NGT was placed for decompression. GI team wasconsulted and she was started on??IV Solu-Medrol.??Over the next few??days her??symptoms??improved.She underwent??a??successful clamp trial??and??the NGT was??removed.??Diet was slowly advanced and??she??was??having??bowel function.??She??underwent??diet education??with??hair dryer regarding??sof t/pureed or??liquid/pureed??diet??if??unable to??tolerate a regular diet for preventing bowel obstruction. On HD4 pt was cleared for discharge to home and provided with script for??steroid taper. Shewas instructed to f/u in the surgery office on 02/09/2024 at 9:00am with Dr Vasquez to discuss surgicaltiming for resection. Objective/Physical Exam on Day of Discharge Vitals & Measurements T:??97.5?F?? HR:??90??(Peripheral)?? RR:??18?? BP:??96/39?? SpO2:??100%?? HT:??162??cm?? WT:??52??kg?? BMI:??19.81?? General: No acute distress,??sleepy, arousable Cardio: Regular rate and rhythm Lungs: Non labored 100% RA Abdomen: soft,??non-distended, mild infraumbilical tenderness, no guarding Neuro: A&O x 3 Extremities: No edema Future Appointments Monday 9:00 AM EDT ?? With: Pedro MOSQUERA, Bhavani Vargas Where: [facility] [address] [place] [address] Drive [address] [place] [id number]- Status: Pending Patient Discharge Condition Good Discharge Disposition Home Inpatient Medications Medications (10) Active SCHEDULED: (6) Acetaminophen 325 mg Tablet (Tylenol 325 mg oral tablet) ??650 mg, By Mouth, Every 4 hours Calcium Carbonate 650 mg (Calcium 260 mg) Tablet (calcium carbonate 650 mg oral tablet) ??650 mg, By Mouth, 2 times a day Enoxaparin 40 mg Inj (Enoxaparin Inj) ??40 mg 0.4 mL, Subcutaneous Injection, Every 24 hours Ferrous Sulfate 325 mg EC Tablet (ferrous sulfate 325 mg oral tablet) ??325 mg, By Mouth, Daily PredniSONE 50 mg Tablet (predniSONE 50 mg oral tablet) ??25 mg, By Mouth, Daily Vitamin B12 100 mcg Tablet (cyanocobalamin 100 mcg oral tablet) ??100 mcg, By Mouth, Daily CONTINUOUS: (0) PRN: (4) Chloraseptic Lozenge ??1 lozenge, By Mouth, Every 3 hours Chloraseptic Throat [place] (Chloraseptic [place]) ??1 sprays, By Mouth, Every 4 hours HYDROmorphone 0.5 mg/0.5 mL Inj Syringe (Dilaudid Inj) ??0.5 mg 0.5 mL, IV Push Slowly, Every 4 hours Ondansetron 2mg/mL Inj (2mL Vial) (Zofran Inj) ??4 mg, IV Push, Every 6 hours Discharge Medications Acetaminophen (acetaminophen 500 mg oral tablet)?1?tab(s)?500?Milligram?By Mouth?Every 6 hours? NEEDED FOR PAIN Ascorbic Acid (Vitamin C 500 mg oral tablet)?1?tab(s)?500?Milligram?By Mouth?Daily Calcium Carbonate (calcium carbonate 600 mg oral tablet)?1?tab(s)?600?Milligram?By Mouth?2 times a day Cyanocobalamin (Vitamin B12)?By Mouth?Daily?otc Ferrous Sulfate (ferrous sulfate 325 mg oral tablet)?1?tab(s)?325?Milligram?By Mouth?Daily Miscellaneous Rx (Veggie- Fruit Blend)?Oral?Daily Multivitamin With Minerals (Adult Multivitamin Gummies oral tablet, chewable)?1?tab(s)?By Mouth?Daily PredniSONE (predniSONE 5 mg oral tablet)?See Instructions?5 tablet By mouth daily 6 days then4 tablets daily x 7 days, then 3 tablets daily x 7days, then 2 tablets x 7days, then 1 tablet x 7 days then stop Labs Last 24 Hours BLOOD COUNT & DIFF ? Event Name?? Event Result?? Date/Time?? WBC 10.2 k/mm3 01/25/24 05:39:00 RBC 3.02 m/mm3??Low 01/25/24 05:39:00 Hgb 9 Gm/dL??Low 01/25/24 05:39:00 Hct 27.8 %??Low 01/25/24 05:39:00 MCV 92.1 femtoliters 01/25/24 05:39:00 MCH 29.8 pg 01/25/24 05:39:00 MCHC 32.4 g/dL??Low 01/25/24 05:39:00 Platelet Count 369 k/mm3 01/25/24 05:39:00 MPV 8.2 femtoliters??Low 01/25/24 05:39:00 Nucleated RBC (Automated) 0 #/100 WBC'S 01/25/24 05:39:00 ? CHEM GENERAL ? Event Name?? Event Result?? Date/Time?? Sodium 139 mmol/L 01/25/24 05:39:00 Chloride 102 mmol/L 01/25/24 05:39:00 Bicarbonate Level 26 mmol/L 01/25/24 05:39:00 Anion Gap 11 01/25/24 05:39:00 Glucose Level 80 mg/dL 01/25/24 05:39:00 BUN 13 mg/dL 01/25/24 05:39:00 Creatinine-Blood 0.62 mg/dL 01/25/24 05:39:00 Calcium, Ionized pH Corrected 1.31 mmol/L 01/25/24 05:39:00 Phosphorus 3 mg/dL 01/25/24 05:39:00 Magnesium 1.7 mg/dL 01/25/24 05:39:00 ? Follow-Up Appointments Added Follow Up ?Time Frame ?Comments Pedro MOSQUERA, Bhavani Vargas?02/09/2024 09:00 Patient Instructions ?? Colorectal Patients Discharge Instructions For Dr. Vasquez, Dr. Lauren, Dr. Estrada & Dr. Stubbs/Main office phone [phone]? Signs and Symptoms of Infection: ??Call MD office for these:?Fever over 101 degrees ?Persistent nausea and vomiting. ?If your abdomen is getting increasingly bloated, firm and painful. ?Decreased bowel funciton. * Dane RN, Italia: PERFORM Event Display: Patient Education/Instruction Authored Date: Inpatient Adult Discharge Instructions. [address] [address] Name: NUVIA MCBRIDE : 1975?? Visit: 01/21/2024 17:01?? Current Date: 01/25/2024 12:55 ?? Account: [id number]?? Inpatient Adult Discharge Instructions We would like to thank you for allowing us to assist you with your healthcare needs. The following includes patient education materials and information regarding your injury/illness. Our entire staffstrives to provide an excellent experience for our patients and their families. PLEASE ENSURE YOU FOLLOW-UP PER THE INSTRUCTIONS BELOW! ?? YOUR OPINION IS IMPORTANT TO US! Please complete the survey you may receive by mail or email. Your feedback will be used to make improvements to the healthcare experiences of our patients and their families. Surveys are administered by [email or web address]. ?? If further treatment with your primary care physician or another doctor is recommended, it is important for you to keep the appointment. Call your primary care physician or return to the Emergency Department immediately if your condition worsens, fails to improve, or new symptoms develop. If you need to find a doctor, you can call [facility] for a referral at [phone] or toll free at [phone] or log in to [email or web address].. ?? [facility], in keeping with [facility] guidance, no longer requires face masks for staff, patientsor visitors in most situations. Similiar to time spent indoors at other locations, there is the chance that you were exposed to repiratory viruses during your time with us (such as flu or COVID-19). If you develop symptoms concerning for a viral respiratory infection, please seek testing (and treatment if indicated) from your medical provider or home test kit. ?? You can view and manage your care through the patient portal or by using a health care syeda of your choosing. [employer] is a website that allows you to securely view your medical information including your hospital discharge summary, office visit summaries, medications and follow-up visits. You can also request appointments, renew medications, and request access to your medical information using a health care syeda of your choosing, or just ask a question. You can enroll at [email or web address] or register during your next office visit. You have been discharged from [facility], Patient Care Unit: SW6??. If you have any questions regarding these instructions, including results of studies pending, afteryou leave, please call us and we will be happy to assist you 27/03. [facility] Your Care Team Attending Physician Pedro MOSQUERA, Bhavani Vargas?? Consulting Providers Bhavani Vasquez MD?? Discharging Providers Bean HUNT, Shoshana Vargas Reason for Your Visit Pt coming from home, with c/o diarrhea x 3d, non bloody emesis x 2d, with wittnessed syncopal episodes by family, hx of chrons dx, consult with [facility] on 02/08. On Prednisone taper 10mg/day?? Your Diagnosis Crohn disease Small bowel obstruction Abdominal pain General medical Tests Performed Below is a partial list of the tests performed during your hospitalization. You may have had other tests and procedures not included in this list. Please discuss all test results with your provider. 25OH VITAMIN D Basic Metabolic Panel Blood Culture Blood Culture #2 Blood Culture 2 Results Blood Culture Result Calcium Ionized CBC w/ Differential Comprehensive Metabolic Panel CRP ESR Ferritin Ionized Calcium Iron + Iron Binding Capacity Lactate Level Lipase Magnesium Level Phosphorus Level PREALBUMIN Urinalysis w/hold for Urine Culture VITAMIN B12 CT Abd/Pelvis W/ IV Contrast Only CXR Portable XR Chest Portable Add On Lab Order?? Basic Metabolic Panel?? C Reactive Protein (CRP)?? CBC w/ Differential?? Calprotectin Fecal?? Ionized Calcium?? Lactic Acid Level (Lactate Level)?? Magnesium Level?? Phosphorus Level?? Sedimentation Rate (ESR)?? Primary Care Provider Gwendolyn Luis MD? Advance Directive Health Care Proxy on File No Patient refuses to discuss Discharge Vitals Temperature: 97.7 DegF Height: 162 cm Pulse Rate: 87 bpm Weight: 52 kg Respiratory Rate: 18 br/min Body Mass Index: 19.81 kg/m2 Systolic Blood Pressure: 113 mm Hg Body surface area: 1.53 Diastolic Blood Pressure: 67 mm Hg ?? Oxygen Saturation: 99 % ?? Studies Pending All studies ordered during this hospital stay have been completed unless listed below. Please discuss all pending results with your provider listed above in these instructions. ?? Add On Lab Order?? Basic Metabolic Panel?? C Reactive Protein (CRP)?? CBC w/ Differential?? Calprotectin Fecal?? Ionized Calcium?? Lactic Acid Level (Lactate Level)?? Magnesium Level?? Phosphorus Level?? Sedimentation Rate (ESR)?? What to do next Instructions From Your Doctor ?? Colorectal Patients Discharge Instructions For Dr. Vasquez, Dr. Lauren, Dr. Estrada & Dr. Stubbs/Main office phone [phone]? Signs and Symptoms of Infection: ??Call MD office for these:?Fever over 101 degrees ?Persistent nausea and vomiting. ?If your abdomen is getting increasingly bloated, firm and painful. ?Decreased bowel funciton. ?? Orders? 01/25/24 12:29:00 EDT?? Scheduled Follow-Up Appointments Monday 9:00 AM EDT ?? With: Bhavani Vasquez MD Where: [address] [place] [address]- Status: Pending You Need to Schedule the Following Appointments Follow Up with??Bhavani Vasquez MD When:??02/09/2024 09:00 AM EDT Where: [address] [place] [address], [address] [place] [address]- Discharge Medications NUVIA MCBRIDE :1975 Visit Date:01/21/2024 Medications: Please continue your medications until treatment is completed or stopped by your provider. Medications not listed below should be discontinued. Discuss any questions related to medications with your provider. What How Much When Instructions Next Dose Changed Multivitamin With Minerals (Adult Multivitamin Gummies oral tablet, chewable) 1 tab(s) Oral Daily 01/26/24 am Changed PredniSONE (predniSONE 5 mg oral tablet) See instructions 5 tablet By mouth daily 6 days then 4 tablets daily x 7 days, then 3 tablets daily x 7days, then 2 tablets x 7days, then 1 tablet x 7 days then stop ?? Pickup at [facility] As directed 01/25/24 Unchanged Acetaminophen (acetaminophen 500 mg oral tablet) 1 tab(s) Oral Every 6 hours NEEDED FOR PAIN ?? As needed Unchanged Ascorbic Acid (Vitamin C 500 mg oral tablet) 1 tab(s) Oral Daily 01/26/24 am Unchanged Calcium Carbonate (calcium carbonate 600 mg oral tablet) 1 tab(s) Oral Twice a day as directed Unchanged Cyanocobalamin (Vitamin B12) Oral Daily otc ?? 5/24 24 am Unchanged Ferrous Sulfate (ferrous sulfate 325 mg oral tablet) 1 tab(s) Oral Daily 01/26/24 am Unchanged Miscellaneous Rx (Veggie- Fruit Blend) Oral Daily as directed Pharmacy Information [facility]: [address] [place], [place] [id number] [phone] Prescription Given During Visit PredniSONE (predniSONE 5 mg oral tablet) - , # 100 tablet, 0 Refills, 5 tablet By mouth daily 6 days then 4 tablets daily x 7 days, then 3 tablets daily x 7days, then 2 tablets x 7days, then 1 tabletx 7 days then stop, [facility], [address] [place] [phone]?? Laboratory Results Below is a partial list of the most recent Laboratory test results done prior to this discharge. You may have had other tests and procedures not included in this list. Please discuss all test resultswith your provider. Est Creatinine Clearance - 91.09 mL/min (01/25/2024) 25OH VITAMIN D (01/24/2024) ???25 OH-Vitamin D Level - 23.5 ng/mL Basic Metabolic Panel (01/25/2024) ???Sodium - 139 mmol/L???Potassium - 4.3 mmol/L???Chloride - 102 mmol/L???Bicarbonate Level - 26 mmol/L???Anion Gap - 11???Glucose Level - 80 mg/dL???BUN - 13 mg/dL???Creatinine-Blood - 0.62 mg/dL???Estimated GFR Creatinine - 110 ML/MIN/1.73 M2???Calcium - 8.5 mg/dL Blood Culture (01/21/2024) ???Blood Culture Results - Preliminary report???Blood Culture Specimen Source - BLOOD Blood Culture #2 (01/21/2024) ???Blood Cult 2 Results - Preliminary report???Blood Culture 2 Specimen Source - BLOOD Blood Culture 2 Results (01/21/2024) ???Blood Culture 2 Isolate 1 - Comment Blood Culture Result (01/21/2024) ???Blood Culture Isolate 1 - Comment Calcium Ionized (01/21/2024) ???Calcium, Ionized pH Corrected - 1.35 mmol/L CBC w/ Differential (01/25/2024) ???WBC - 10.2 k/mm3???RBC - 3.02 m/mm3???Hgb - 9.0 Gm/dL???Hct - 27.8 %???MCV - 92.1 femtoliters???MCH - 29.8 pg???MCHC - 32.4 g/dL???Platelet Count - 369 k/mm3???RDW-SD - 52.0 femtoliters???MPV - 8.2 femtoliters???Nucleated RBC (Automated) - 0.0 #/100 WBC'S???Abs. NRBC - 0.0 k/mm3???Abs. Neut - 3.4 k/mm3???Abs. Lymph - 6.0 k/mm3???Abs. [place]oughton - 0.6 k/mm3???Abs. Eo - 0.1 k/mm3???Abs. Baso - 0.0 k/mm3???Neut % - 33.6 %???Lymph % - 58.9 %???Houghton % - 6.1 %???Eos % - 0.8 %???Baso % - 0.3 %???Imm Gran- 0.3 %???Abs. Imm Gran - 0.0 k/mm3 Comprehensive Metabolic Panel (01/21/2024) ???Sodium - 138 mmol/L???Potassium - 4.5 mmol/L???Chloride - 102 mmol/L???Bicarbonate Level - 22 mmol/L???Anion Gap - 14???Glucose Level - 113 mg/dL???BUN - 21 mg/dL???Creatinine-Blood - 0.57 mg/dL???Estimated GFR Creatinine - 112 ML/MIN/1.73 M2???Calcium - 9.8 mg/dL???Protein, Total - 6.1 Gm/dL???Albumin - 3.4 Gm/dL???AG Ratio - 1.3???Alkaline Phosphatase - 75 units/L???AST (SGOT) - 18 units/L???ALT (SGPT) - 9 units/L? ?Bilirubin, Total - <0.2 mg/dL CRP (01/25/2024) ???C-Reactive Protein - 2.9 mg/dL ESR (01/25/2024) ???Sed Rate - 6 mm/hr Ferritin (01/25/2024) ???Ferritin Level - 54 ng/mL Ionized Calcium (01/25/2024) ???Calcium, Ionized pH Corrected - 1.31 mmol/L Iron + Iron Binding Capacity (01/25/2024) ???Iron Level - 22 mcg/dL???Iron Binding Capacity, Unsaturated - 168 mcg/dL???Iron Binding Capacity, Estimated Total - 190 mcg/dL???% Iron Saturation - 12 % Lactate Level (01/21/2024) ???Lactate - 1.5 mmol/L Lipase (01/21/2024) ???Lipase - 13 units/L Magnesium Level (01/25/2024) ???Magnesium - 1.7 mg/dL Phosphorus Level (01/25/2024) ???Phosphorus - 3.0 mg/dL PREALBUMIN (01/21/2024) ???Prealbumin - 23.3 mg/dL Urinalysis w/hold for Urine Culture (01/22/2024) ???Appear/Color, Urine - LIGHT YELLOW???Specific Reading, Urine - 1.018???pH, Urine - 6.5???Albumin, Urine - NEGATIVE???Glucose, Urine - NEGATIVE???Ketones, Urine - NEGATIVE???Bilirubin, Urine - NEGATIVE???Hemoglobin, Urine - NEGATIVE???Nitrite, Urine - NEGATIVE???Leukocyte, Urine - TRACE???Urobilinogen - NORMAL? ?WBC's, Urine - 6 /HPF? ?RBC's, Urine - <1 /HPF? ?Bacteria - SLIGHT? ?Squamous Epith - 1 /HPF? ?Transitional Epith - <1 /HPF? ?Mucus - SLIGHT? ?Hold Urine Culture - Testing available 48 hours from time of collection. VITAMIN B12 (01/24/2024) ? ?Vitamin B12 Level - >4000 pg/mL Allergies (NKA means No Known Allergies) Rinvoq??(Shingles) Problems Active Problems??(1) Latent tuberculosis by blood test?? Education Materials Below is the list of Educational Leaflet Providered with your Discharge Instructions. Valuables and Belongings I fully understand and agree that [facility] accepts no responsibility for all my personal property including clothing, toilet articles, radios, jewelry, dentures, hearing aids, rings, money, or any other property that is in my possession or is brought to me after admission. I understand certain valuables may be placed in a hospital safe for a short period of time. I understand that the hospital is not liable for loss or damage due to accident, fire, or other natural occurrence while said property is in the safe. I accept full responsibility for any personal property that I keep with me, and will not hold the hospital responsible in case of loss or disappearance. I acknowledge that i have been encouraged to send valuables and belongings home. ?? Review of Valuable and Belonging List: With patient Date for Pt to Sign Valuables/Belongings: 01/21/24 18:31:00 ?? Other Discharge Information ? Pulmonary Rehab Status?? Pulmonary Rehab Discharge Status?? Respiratory Rate: 18 br/min ? Common Emergency Awareness Tips IS IT A STROKE? Act FAST and Check for these signs: FACE Does the face look uneven? ARM Does one arm drift down? SPEECH Does their speech sound strange? TIME Call at any sign of stroke ?? Heart Attack Signs Chest discomfort: Most heart attacks involve discomfort in the center of the chest and lasts more than a few minutes, or goes away and comes back. It can feel like uncomfortable pressure, squeezing, fullness or pain. Discomfort in upper body: Symptoms can include pain or discomfort in one or both arms, back, neck, jaw or stomach. Shortness of breath: With or without discomfort. Other signs: Breaking out in a cold sweat, nausea, or lightheaded. Remember, MINUTES DO MATTER. If you experience any of these heart attack warning signs, call to get immediate medical attention! ?? Smoking can increase your chances of developing chronic health problems and can cause harmful effects to other family members in your house. If you smoke, you are strongly encouraged to quit. Please call [facility] at [phone] or [phone] ([phone]) or log in to [email or web address] for referrals to smoking cessation programs. ?? 988 Suicide & Crisis Lifeline is available 27/03 if you or someone you know needs to find a reason to keep living. By calling 988 you'll be connected to a skilled, trained counselor at a crisis center in your area. INPATIENT DISCHARGE INSTRUCTIONS SIGNATURE PAGE NUVIA MCBRIDE Location:[facility] Registration Date and Time:01/21/2024 17:01 EDT Primary Care Physician: Toby MOSQUERA, Gwendolyn Carter, Attending Physician: Pedro MOSQUERA, Bhavani Vargas, I NUVIA MCBRIDE, have received the above patient education materials/instructions and have verbalized understanding. If ambulance or transport services are being used I further acknowledge being given a choice of service. ?? If you need to contact me, please call me at this number: . Patient/Microphone Operator Name: Patient/Microphone Operator Signature: Relationship to Patient: Witness Name/Signature: Date: Patient Care team information Care Team Personnel Name: Gema Garcia RN Position: [facility] RN Member Role: Primary Care Nurse Name: Estiven BILLINGSLEY, Radha Celis Position: S RN Member Role: Primary Care Nurse Name: Gwendolyn Luis MD Position: [facility] Physician - Primary Care Member Role: PCP Address: Address: [address] [place] [id number] Name: Vivian Turpin RN Position: [facility] RN Member Role: Primary Care Nurse Care Team Related Persons Name: HELDER MCBRIDE Address: home [address] [place] [id number] Name: RAMO MCBRIDE Address: home [address] [place] [id number]
--- OUTSIDE RECORDS SUMMARY | 2024-03-30 12:48 | XMS_ITS | Continuity of Care Document ---
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 Start Date: 02/13/24 Status: Ordered lidocaine 5% topical film See Instructions, Topically Daily, # 30 patch, 0 Refills, Maintenance, 02/13/24 13:12:00 EDT, Patch, [facility], Partial fill upon patient request if the prescription is for a schedule II opioid drug., Topically Daily, 163, cm, 02/09/24... Start Date: 02/13/24 Status: Ordered oxyCODONE 5 mg oral tablet 5 mg, 1, tablet, By Mouth, Every 6 hours, PRN, # 20 tablet, Refills 0, Tot. Refills 0, Maintenance,Pain , Severe, 02/13/24 13:13:00 EDT, Route to Pharmacy Electronically, [facility], Partial fill upon patient request if the prescription... Start Date: 02/13/24 Status: Ordered predniSONE 10 mg oral tablet See Instructions, 3 tablet By Mouth Daily x 7 days then 2 tablets daily x 7 days then 1 tablet daily x 7 days then stop, # 42 tablet, 0 Refills, Maintenance, 02/13/24 13:09:00 EDT, Tablet, [facility], Partial fill upon patient request i... [...] Effective Dates Status Health [facility] Informant Crohn's disease Confirmed Active Latent tuberculosis by blood test 1 Confirmed Active 1pt. completed [facility] tx on 12/09/2022. pt. took Rifapin 600 mg qd x 4 months Diagnosis Diagnosis Type Effective Dates Health Status Cl inical Service Informant Crohn's disease Discharge Diagnosis 03/11/24 Vital Signs Most recent to oldest [Reference Range]: 1 Height 163 cm (03/11/24 8:26 AM) Weight 51.7 kg (03/11/24 8:26 AM) Pulse Rate [55-90 bpm] 83 bpm (03/11/24 8:26 AM) Body Mass Index [18.5-24.99 kg/m2] 19.46 kg/m2 (03/11/24 8:26 AM) Blood Pressure [90-138/55-84 mm Hg] 92/6 0mm Hg (03/11/24 8:26 AM) Temperature [96.8-100.4 DegF] 97.3 DegF (03/11/24 8:26 AM) Blood pressure sites Arm, left (03/11/24 8:26 AM) Temperature Route Temporal (03/11/24 8:26 AM) Social History Social History Type Response Smoking Status 5-9 cigarettes (betw een 1/4 to 1/2 pack)/day in last 30 days entered on: 03/11/24 Sex Patient Care team information Care Team Personnel Name: Gema Garcia RN Position: [facility] RN Member Role: Primary Care Nurse Name: Radha Jean-Baptiste RN Position: [facility] RN Member Role: Primary Care Nurse Name: Shanice Colon RN Position: [facility] RN Member Role: Primary Care Nurse Name: Catherine Barba RN Position: [facility] RN Member Role: Primary Care Nurse Name: Oswaldo Pisano RN Position: [facility] RN Member Role: Primary Care Nurse Name: Gwendolyn Luis MD Position: [facility] Physician - Primary Care Member Role: PCP Address: Address: [address] [place] [id number] Name: Lola Hopson RN Position: [facility] RN Member Role: Primary Care Nurse Name: Vivian Turpin RN Position: S RN Member Role: Primary Care Nurse Name: Radha Carroll RN Position: S RN Member Role: Primary Care Nurse Name: Eunice Julio RN Position: S RN Member Role: Primary Care Nurse Care Team Related Persons Name: PRASANNAKEN KHALIL ROSE Name: HELDER MCBRIDE Address: [address] [address] Name: RAMO MCBRIDE Address: [place] [id number] Name: MEHREEN GIANG
--- OUTSIDE RECORDS SUMMARY | 2024-03-30 12:48 | XMS_ITS | Continuity of Care Document ---
Author Organization [facility] As [facility] Address [address] [place] [address] [address] [place] [address]- Care Team Providers Care Home Care Consultant Name Role Phone Gwendolyn Luis MD Primary Care Physician Encounter [facility] R [id number] Date(s): 02/28/24 - 03/29/[address] [place] [address]- Allergies, Adverse Reactions, Alerts Substance Reaction Severity [...] 02/13/24 13:15:00 EDT, Route to Pharmacy Electronically, [facility], Partial fill upon patien... Start Date: 02/13/24 Status: Ordered lidocaine 5% topical film See Instructions, Topically Daily, # 30 patch, 0 Refills, Maintenance, 02/13/24 13:12:00 EDT, Patch, [facility], Partial fill upon patient request if the prescription is for a schedule II opioid drug., Topically Daily, 163, cm, 02/09/24... Start Date: 02/13/24 Status: Ordered oxyCODONE 5 mg oral tablet 5 mg, 1, tablet, By Mouth, Every 6 hours, PRN, # 20 tablet, Refills 0, Tot. Refills 0, Maintenance,Pain , Severe, 02/13/24 13:13:00 EDT, Route to Pharmacy Electronically, [facility], Partial fill upon patient request if the prescription... Start Date: 02/13/24 Status: Ordered predniSONE 10 mg oral tablet See Instructions, 3 tablet By Mouth Daily x 7 days then 2 tablets daily x 7 days then 1 tablet daily x 7 days then stop, # 42 tablet, 0 Refills, Maintenance, 02/13/24 13:09:00 EDT, Tablet, [facility], Partial fill upon patient [...] Rifapin 600 mg qd x 4 months Social History Social History Type Response Smoking Status 5-9 cigarettes (betw een 1/4 to 1/2 pack)/day in last 30 days entered on: 03/11/24 Sex Patient Care team information Care Team Personnel Name: Gema Garcia RN Position: S RN Member Role: Primary Care Nurse Name: Radha Jean-Baptiste RN Position: S RN Member Role: Primary Care Nurse Name: Shanice Colon RN Position: S RN Member Role: Primary Care Nurse Name: Catherine Barba RN Position: S RN Member Role: Primary Care Nurse Name: Oswaldo Pisano RN Position: S RN Member Role: Primary Care Nurse Name: Gwendolyn Luis MD Position: S Physician - Primary Care Member Role: PCP Address: Address: [address] [place] [address] Name: Lola [place] RN Position: S RN Member Role: Primary Care Nurse Name: Vivian Turpin RN Position: S RN Member Role: Primary Care Nurse Name: Radha Carroll RN Position: S RN Member Role: Primary Care Nurse Name: Eunice Julio RN Position: S RN Member Role: Primary Care Nurse Care Team Related Persons Name: PRASANNA, KENHéctor ROSE Name: HELDER MCBRIDE Address: [address] [address] Name: RAMO MCBRIDE Address: home [address] [place] [id number] Name: MEHREEN GIANG
--- OUTSIDE RECORDS SUMMARY | 2024-03-30 12:48 | XMS_ITS | Continuity of Care Document ---
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 Start Date: 02/13/24 Status: Ordered lidocaine 5% topical film See Instructions, Topically Daily, # 30 patch, 0 Refills, Maintenance, 02/13/24 13:12:00 EDT, Patch, [facility], Partial fill upon patient request if the prescription is for a schedule II opioid drug., Topically Daily, 163, cm, 02/09/24... Start Date: 02/13/24 Status: Ordered oxyCODONE 5 mg oral tablet 5 mg, 1, tablet, By Mouth, Every 6 hours, PRN, # 20 tablet, Refills 0, Tot. Refills 0, Maintenance,Pain , Severe, 02/13/24 13:13:00 EDT, Route to Pharmacy Electronically, [facility], Partial fill upon patient request if the prescription... Start Date: 02/13/24 Status: Ordered predniSONE 10 mg oral tablet See Instructions, 3 tablet By Mouth Daily x 7 days then 2 tablets daily x 7 days then 1 tablet daily x 7 days then stop, # 42 tablet, 0 Refills, Maintenance, 02/13/24 13:09:00 EDT, Tablet, [facility], Partial fill upon patient request i... [...] List Condition Confirmation Course Effective Dates Status [facility] Informant Crohn's disease Confirmed Active [...] Care Nurse Name: Catherine Barba RN Position: [facility] RN Member Role: Primary Care Nurse Name: Oswaldo Pisano RN Position: [facility] RN Member Role: Primary Care Nurse Name: Gwendolyn Luis MD Position: [facility] Physician - Primary Care Member Role: PCP Address: Address: [address] [place] [address] Name: Lola [place] RN Position: S RN Member Role: Primary Care Nurse Name: Vivian Turpin RN Position: [facility] RN Member Role: Primary Care Nurse Name: Radha Carroll RN Position: [facility] RN Member Role: Primary Care Nurse Name: Eunice Julio RN Position: [facility] RN Member Role: Primary Care Nurse Care Team Related Persons Name: KEN MIMS Name: HELDER MCBRIDE Address: home [address] [place] [id number] Name: RAMO MCBRIDE Address: home [address] [place] [address] Name: MEHREEN GIANG
--- OUTSIDE RECORDS SUMMARY | 2024-03-30 12:48 | XMS_ITS | Continuity of Care Document ---
Author Organization [facility] ter Address [address] [place] [id number]- Care Team Providers Care Senior Net Architect Name Role Phone Gwendolyn Luis MD Primary Care Physician Encounter [facility] Date(s): 02/06/24 - 02/13/[address] [id number] Discharge Disposition: A-Transfer VNA/Home Health Attending Physician: Staci Lauren MD Admitting Physician: Staci Lauren MD Referring Physician: Not on Staff, Referring [...] 03/14/24 13:12:00 EDT, 02/13/24 13:12:00 EDT, Injection, [facility], Partial fill upon patient [...] 02/13/24 13:15:00 EDT, Route to Pharmacy Electronically, [facility], Partial fill upon patien... Start Date: 02/13/24 Status: Ordered lidocaine 5% topical film See Instructions, Topically Daily, # 30 patch, 0 Refills, Maintenance, 02/13/24 13:12:00 EDT, Patch, [facility], Partial fill upon patient request if the prescription is for a schedule II opioid drug., Topically Daily, 163, cm, 02/09/24... Start Date: 02/13/24 Status: Ordered metroNIDAZOLE 500 mg oral tablet 1 tablet = 500 mg, By Mouth, Every 8 hours, for 30 days, # 90 tablet, 0 Refills, Acute 03/14/24 13:13:00 EDT, 02/13/24 13:13:00 EDT, Tablet, [facility], Partial fill upon patient request if the prescription is for a schedule II opioid drMaryan Start Date: 02/13/24 Stop Date: 03/14/24 Status: Ordered oxyCODONE 5 mg oral tablet 5 mg, Tablet, By Mouth, Every 6 hours, PRN for Pain , Severe, Routine, 02/12/24 10:14:00 EDT Start Date: 02/12/24 Stop Date: 02/14/24 Status: Discontinued oxyCODONE 5 mg oral tablet 5 mg, 1, tablet, By Mouth, Every 6 hours, PRN, # 20 tablet, Refills 0, Tot. Refills 0, Maintenance,Pain , Severe, 02/13/24 13:13:00 EDT, Route to Pharmacy Electronically, [facility], Partial fill upon patient request if the prescription... Start Date: 02/13/24 Status: Ordered predniSONE 10 mg oral tablet See Instructions, 3 tablet By Mouth Daily x 7 days then 2 tablets daily x 7 days then 1 tablet daily x 7 days then stop, # 42 tablet, 0 Refills, Maintenance, 02/13/24 13:09:00 EDT, Tablet, [facility], Partial fill upon patient [...] Exam Date Time Procedure Performing Provider Status 02/12/24 2:04 PM US Doppler Ext Lower Venous Left Jo Adrian; Auth (Verified) Notes: (US Doppler Ext Lower Venous Left) Reason For Exam: Pain/Tenderness Extremities RESULT: US Doppler Ext Lower Venous Left US Doppler Ext Lower Venous Left Reason: Pain Tenderness Extremities; Clinical Question(s): Thrombus COMPARISON: None IMAGING TECHNIQUE: Ultrasound of the veins from the groin through the calf was performed using grayscale, color, and spectral Doppler ultrasound assessing for complete compressibility and normal flowcharacteristics. FINDINGS: Common femoral vein: Patent. No thrombosis. Femoral vein: Patent. No thrombosis. Popliteal vein: Patent. No thrombosis. Gastrocnemius veins: The visualized portions are patent without evidence of thrombosis. Peroneal veins: The visualized portions are patent without evidence of thrombosis. Posterior tibial veins: The visualized portions are patent without evidence of thrombosis. Contralateral common femoral vein: Patent. No thrombosis. OTHER FINDINGS: None. IMPRESSION: No evidence of deep venous thrombosis. WSN: [id number] Ordering Physician: Caity Bright Dictated By: Geovanni Jang MD Dictated Date/Time: 02/12/24 3:27 pm Reviewed By: Geovanni Jang MD Signed By: Geovanni Jang MD Signed Date/Time: 02/12/24 3:27 pm Transcribed By: ANITA Transcribed Date/Time: 02/12/24 2:17 pm * Exam Date Time Procedure Performing Provider Status 02/11/24 10:02 AM US Doppler Ext Lower Venous Right Mirella Gomes; Auth (Verified) Notes: (US Doppler Ext Lower Venous Right) Reason For Exam: pain to extremity post op;Pain/Tenderness Extremities RESULT: US Doppler Ext Lower Venous Right US Doppler Ext Lower Venous Right INDICATION: Pain and tenderness. Clinical Question(s): Thrombus COMPARISON: None IMAGING TECHNIQUE: Ultrasound of the veins from the groin through the calf was performed using grayscale, color, and spectral Doppler ultrasound assessing for complete compressibility and normal flowcharacteristics. FINDINGS: Common femoral vein: Patent. No thrombosis. Femoral vein: Patent. No thrombosis. Popliteal vein: Patent. No thrombosis. Gastrocnemius veins: The visualized portions are patent without evidence of thrombosis. Peroneal veins: The visualized portions are patent without evidence of thrombosis. Posterior tibial veins: The visualized portions are patent without evidence of thrombosis. Contralateral common femoral vein: Patent. No thrombosis. OTHER FINDINGS: Popliteal fossa cyst measuring up to 4 cm in maximal longitudinal dimension which appears to contain a small amount of debris. IMPRESSION: No evidence of deep venous thrombosis. WSN: [id number] Ordering Physician: Max Rose Dictated By: Bebo Aguirre MD Dictated Date/Time: 02/11/24 11:26 a Reviewed By: Bebo Aguirre MD Signed By: Bebo Aguirre MD Signed Date/Time: 02/11/24 11:26 am Transcribed By: ANITA Transcribed Date/Time: 02/11/24 11:25 am * Exam Date Time Procedure Performing Provider Status 02/06/24 11:04 AM Chest Portable Juan Manuel Borrego; Auth ( Verified) Notes: (Chest Portable) Reason For Exam: Tube Placement RESULT: Chest Portable Chest Portable REASON: Tube Placement; Clinical Question(s): Tube Placement COMPARISON: 02/06/2024: CT abdomen and pelvis from 02/06/2024. FINDINGS: LINES AND TUBES: Enteric tube with side-port and tip in the stomach. LUNGS AND PLEURA: Clear lungs. Normal pulmonary vascularity. No pleural effusion. No pneumothorax. HEART, MEDIASTINUM AND SHAAN: Heart is normal in size. Normal mediastinal and hilar contour. BONES AND SOFT TISSUES: No acute abnormality. Persistent moderately distended bowel loops in the upper abdomen, unchanged. IMPRESSION: No evidence of active parenchyma infiltrates or CHF. I have personally reviewed the images and I agree with this report. WSN: [id number] Ordering Physician: Shoshana Del Angel Dictated By: Margie Quiñones MD Dictated Date/Time: 02/06/24 11:42 a Reviewed By: Denny Wilkins MD, V Signed By: Denny Wilkins MD, V Signed Date/Time: 02/06/24 11:47 am Transcribed By: ANITA Transcribed Date/Time: 02/06/24 11:25 am * Exam Date Time Procedure Performing Provider Status 02/06/24 6:58 AM Chest Portable Audrey Duke; Auth ( Verified) Notes: (Chest Portable) Reason For Exam: Tube Placement RESULT: Chest Portable Chest Portable REASON: Tube Placement; Clinical Question(s): Tube Placement COMPARISON: 01/21/2024; CT abdomen and pelvis from 02/06/2024 at 3:24 AM FINDINGS: LINES AND TUBES: Enteric tube with side-port and tip in the stomach. LUNGS AND PLEURA: Clear lungs. Normal pulmonary vascularity. No pleural effusion. No pneumothorax. HEART, MEDIASTINUM AND SHAAN: Heart is normal in size. Normal mediastinal and hilar contour. BONES AND SOFT TISSUES: No acute abnormality. Persistent moderately distended multiple bowel loops in the upper abdomen again visualized. IMPRESSION: No evidence of active parenchymal infiltrates or CHF noted. I have personally reviewed the images and I agree with this report. WSN: [id number] Ordering Physician: Grover Deng Dictated By: Margie Quiñones MD Dictated Date/Time: 02/06/24 9:37 am Reviewed By: Denny Wilkins MD, V Signed By: Denny Wilkins MD, V Signed Date/Time: 02/06/24 9:42 am Transcribed By: ANITA Transcribed Date/Time: 02/06/24 9:11 am * Exam Date Time Procedure Performing Provider Status 02/06/24 3:[address] Abd/Pelvis W/ IV Contrast Only Arslan Blair; Andrea (Verified) Notes: (CT Abd/Pelvis W/ IV Contrast Only) Reason For Exam: LLQ abdominal pain;Other: RESULT: CT Abd/Pelvis W/ IV Contrast Only CT Abd/Pelvis W/ IV Contrast Only Hx of Present Illness: Patient presents with severe abd pain x 2-3 days. Patient attributes pain tocrohne's flare.; Reason: LLQ abdominal pain; Clinical Question(s): Abscess: TECHNIQUE: Spiral CT through the abdomen and pelvis with IV contrast formatted in 3 planes. 75 cc of Omnipaque 300 was administered intravenously. This study was performed without oral contrast. Weight-based protocol using automatic tube modulation was used to optimize exposure parameters. CTDIvol Body: 10.40 mGy, DLP Body: 580 mGy*cm. COMPARISON: 01/21/2024 FINDINGS: Political Analyst View Findings, Lines and Tubes: None. Visualized [...] Unremarkable. Stomach, small bowel, and large bowel: There is prominent circumferential wall thickening of the distal ileum with surrounding fat stranding (201:103), causing diffuse upstream dilatation of the small bowel. The most dilated portion is a loop of distal ileum directly above the stricture, measuring up to 7.3 cm (201:109). Large bowel is mostly decompressed. Appendix: Normal. Peritoneum and retroperitoneum: No ascites or pneumoperitoneum. No omental or mesenteric lesions. Lymph nodes: Right lower quadrant mesenteric lymphadenopathy. Blood vessels: Minimal vascular calcifications but no aneurysm. No evidence of venous thrombosis. Abdominal and pelvic wall: Unremarkable. Bones: No acute abnormality. Moderate disc space narrowing at L5-S1. IMPRESSION: 1. Active inflammatory changes of Crohn's disease within active segment of the inflammation above the ileocecal valve causing high-grade obstruction small bowel obstruction. 2. Associated right lower quadrant mesenteric lymphadenopathy. Results were conveyed via [employer] by Dr Mayen to Isaura Morgan MD on 02/06/2024 at 4:47AM with understanding acknowledged. I have personally reviewed the images and I agree with this report. WSN: [id number] Ordering Physician: Nilesh Marques Dictated By: Ana Mayen DO Dictated Date/Time: 02/06/24 7:59 am Reviewed By: Geovanni Jang MD Signed By: Geovanni Jang MD Signed Date/Time: 02/06/24 8:04 am Transcribed By: ANITA Transcribed Date/Time: 02/06/24 5:26 am Vital Signs Most recent to oldest [Reference Range]: 1 2 3 Height 163 cm (02/09/24 3:43 AM) 163 cm (02/09/24 12:00 AM) 163 cm (02/08/24 8:36 PM) Weight 51 kg (02/07/24 9:44 AM) 51 kg (02/06/24 10:28 AM) 51 kg (02/06/24 5:39 AM) Oxygen Saturation [94-100 %] 100 % (02/13/24 11:00 AM) 100 % (02/13/24 8:00 AM) 99 % (02/13/24 4:27 AM) Pulse Rate [55-90 bpm] 64 bpm (02/13/24 11:00 AM) 75 bpm (02/13/24 8:00 AM) 57 bpm (02/13/24 4:27 AM) Body Mass Index [18.5-24.99 kg/m2] 19.2 kg/m2 (02/07/24 9:44 AM) 19.2 kg/m2 (02/06/24 10:28 AM) 19.2 kg/m2 (02/06/24 5:39 AM) Blood Pressure [90-138/55-84 mm Hg] 115/55mm Hg (02/13/24 11:00 AM) 114/68mm Hg (02/13/24 8:00 AM) 118/63mm Hg (02/13/24 4:27 AM) Respiratory Rate [16-30 br/min] 17 br/min (02/13/24 3:19 PM) 18 br/min (02/13/24 11:00 AM) 16 br/min (02/13/24 10:21 AM) Temperature [96.8-100.4 DegF] 97.9 DegF (02/13/24 11:00 AM) 97.7 DegF (02/13/24 8:00 AM) 97.9 DegF (02/13/24 4:27 AM) Liters per Minute 2 L/min (02/07/24 2:45 PM) 2 L/min (02/07/24 2:30 PM) 2 L/min (02/07/24 2:15 PM) Mode of Delivery (Oxygen) Room air (02/13/24 11:00 AM) Room air (02/13/24 8:00 AM) Room air (02/13/24 4:27 AM) Blood pressure sites Arm, left (02/13/24 11:00 AM) Arm, left (02/13/24 8:00 AM) Arm, left (02/13/24 4:27 AM) Temperature Route Oral (02/13/24 11:00 AM) Oral (02/13/24 8:00 AM) Oral (02/13/24 4:27 AM) Dry Weight 51 kg (02/06/24 10:28 AM) 51 kg (02/06/24 5:39 AM) 51 kg (02/06/24 4:19 AM) History and physical note * José Fish MD: PERFORM Event Display: History and Physical Hospital Authored Date: Patient: ??NUVIA MCBRIDE ? Age:??48 Years?Sex:??Female?:??1975?? Chief Complaint Pt states she is having a Crohn???s disease flare up and her abdomen is in a lot of pain. Pt alert oriented x4, positive ABCs. Currently being wheened off prednisone for upcoming surgery. History of Present Illness Patient is a 48-year-old female with??poorly controlled Crohn's disease??who was recently admitted with??inflammatory stricture and small bowel obstruction??who now represents with the same pathology. ?? During recent admission??on 5???19A CT scan of the abd/pelvis was obtained which showed??a 6 cm segment of active inflammatory change approximately 17-18 cm above the ileocecal valve,??resulting??in high-grade small bowel obstruction with??evidence of early transmural disease at this level without fistula or abscess. She was admitted and kept??NPO with??IVF with NGT for decompression. GI team was consulted and she was started on??IV Solu-Medrol.??Over the next few??days her??symptoms??improved. She underwent??a??successful clamp trial??and??the NGT was??removed.??Diet was slowly advanced an d??she??was??having??bowel function.??She??underwent??diet education??with??interactive graphic designer regarding??soft/pureed or??liquid/pureed??diet??if??unable to??tolerate a regular diet for preventing bowel obstruction. On HD4 pt was cleared for discharge to home and provided with script for??steroid taper. She was instructed to f/u in the surgery office on 02/09/2024 at ?? Unfortunately??over the weekend??the patient developed??nausea vomiting??and p.o. intolerance??and has now had no stool or flatus in the last 12 hours. ??She tended to [facility] stable and afebrile. ??She had a biochemical workup that demonstrated??a mild leukocytosis of 12.1. ??She also had grossly normal electrolytes BUN/creatinine.?? Her CT scan demonstrated??significantly distended loops ofsmall bowel up to 6 cm. ??There is a clear transition point at a??portion of the distal ileum??thatappeared severely inflamed. ??When compared to previous CT scan this was the same segment. Physical Exam Vitals & Measurements T:??98.2?F?? HR:??90??(Peripheral)?? RR:??16?? BP:??105/75?? SpO2:??100%?? HT:??163??cm?? WT:??51??kg?? BMI:??19.2?? General: No acute distress Head: Atraumatic, normocephalic ENT: Clear CV: Regular rate and rhythm Pulmonary: Even and unlabored breathing, no wheezing Abdomen: Abdomen was soft but distended and tympanic. ??Mild tenderness to palpation in the bilateral lower quadrants nonperitoneal exam Extremities: Demonstrates intact active range of motion Neuro: Appropriate, oriented, cooperative Assessment/Plan Patient is a 48-year-old female with??poorly controlled Crohn's disease??who was recently admitted with??inflammatory stricture and small bowel obstruction??who now represents with the same pathology. ?? Imaging this admission??demonstrates small bowel obstruction secondary to??inflammatory??stricture??at the same location??from last admission. ??Patient says that she was compliant with both her steroid taper and her??diet recommendation of soft/pur??ed food. ??She was still taking 15 mg of prednisone a day. ??Due to the significant bowel distention a NG tube was placed in the emergency department. ??We will consult GI for further recommendations about steroids however patient will??likely require operative intervention in the coming days??given her??quick failure of conservative management. ?? plan: N.p.o. IV fluids NG tube GI consultation??for medical management of Crohn's disease/steroid??dosing Recommend smoking cessation still smoking??half a pack a day Will likely require operative intervention for??recurrent inflammatory stricture ?? This plan was discussed with Dr. Lauren Colorectal surgery [id number] Problem List/Past Medical History Ongoing Latent tuberculosis by blood test Procedure/Surgical History No qualifying data available. Home Medications Acetaminophen: 500 mg = 1 tablet, By Mouth, Every 6 hours, NEEDED FOR PAIN Ascorbic Acid: 500 mg = 1 tablet, By Mouth, Daily Calcium Carbonate: 600 mg = 1 tablet, By Mouth, 2 times a day Cyanocobalamin: By Mouth, Daily, otc Ferrous Sulfate: 325 mg = 1 tablet, By Mouth, Daily Miscellaneous Rx (Veggie- Fruit Blend): By Mouth, Daily Multivitamin With Minerals: 1 tablet, By Mouth, Daily PredniSONE: See Instructions, 5 tablet By mouth daily 6 days then 4 tablets daily x 7 days, then 3 tablets daily x 7days, then 2 tablets x 7days, then 1 tablet x 7 days then stop Allergies Rinvoq??(Shingles) Family History No family history recorded. Lab Results Labs Last 24 Hours BLOOD COUNT & DIFF ? Event Name?? Event Result?? Date/Time?? WBC 12.1 k/mm3??High 02/05/24 21:50:00 RBC 3.7 m/mm3??Low 02/05/24 21:50:00 Hgb 10.9 Gm/dL??Low 02/05/24 21:50:00 Hct 33.9 %??Low 02/05/24 21:50:00 MCV 91.6 femtoliters 02/05/24 21:50:00 MCH 29.5 pg 02/05/24 21:50:00 MCHC 32.2 g/dL??Low 02/05/24 21:50:00 Platelet Count 541 k/mm3??High 02/05/24 21:50:00 MPV 8 femtoliters??Low 02/05/24 21:50:00 Nucleated RBC (Automated) 0 #/100 WBC'S 02/05/24 21:50:00 ? CHEM GENERAL ? Event Name?? Event Result?? Date/Time?? Sodium 141 mmol/L 02/05/24 21:50:00 Chloride 104 mmol/L 02/05/24 21:50:00 Bicarbonate Level 26 mmol/L 02/05/24 21:50:00 Anion Gap 11 02/05/24 21:50:00 Glucose Level 138 mg/dL??High 02/05/24 21:50:00 BUN 27 mg/dL??High 02/05/24 21:50:00 Creatinine-Blood 0.73 mg/dL 02/05/24 21:50:00 Alkaline Phosphatase 83 units/L 02/05/24 21:50:00 Lipase 15 units/L 02/05/24 21:50:00 AST (SGOT) 10 units/L 02/05/24 21:50:00 ALT (SGPT) 12 units/L 02/05/24 21:50:00 Bilirubin, Total <0.2 02/05/24 21:50:00 ? * Staci Lauren MD N: PERFORM Event Display: History and Physical Hospital Authored Date: Attending Attestation:??I have seen and evaluated this patient. ??I have discussed the case and itsmanagement with the resident and agree with the findings and plan as documented in the resident???snote. ? Dr. Vasquez away. I have arranged to perform an open ileocecectomy and end ileostomy tomorrow morning. Consent obtained. Will hydrate and continue NGT in meantime. Ostomy marking by ET nurses today. ?? Staci Lauren MD, FACS, FASCRS ?? EKG study * Event Display: EKG Authored Date: * Event Display: ECG 12-Lead Authored Date: Please click on pdf link to open report * Event Display: ECG 12-Lead Authored Date: Ventricular Rate: 70 BPM Atrial Rate: 70 BPM P-R Interval: 146 ms QRS Duration: 74 ms Q-T Interval: 370 ms QTC Calculation(Bazett): 399 ms P [place]: 43 degrees R [place]: 16 degrees T [place]: 19 degrees Normal sinus rhythm with sinus arrhythmia Normal ECG When compared with ECG of 21-JAN-2024 12:05, No significant change was found Confirmed by WILY JACKSON MD ([id number]) on 02/09/2024 10:50:22 AM [place]: WILY JACKSON MD Cardiology * Event Display: Cardiac Rhythm Strips Authored Date: * Event Display: Cardiac Rhythm Strips Authored Date: * Event Display: Cardiac Rhythm Strips Authored Date: Hospital Progress note * Sumanth BILLINGSLEY, Eunice: PERFORM, SIGN, VERIFY Event Display: Progress Note Hospital Authored Date: Patient: NUVIA MCBRIDE [facility]: [id number] Age: 48 years Sex: Female : 1975 Associated Diagnoses: None Author: Sumanth BILLINGSLEY, Eunice Findings Problem Related to Alteration in Gastrointestinal : Alteration in Gastrointestinal Func/new 02/13/2024 7:26 EDT Alteration in GI status Related to Abdominal Surgery, Colorectal Surgery, Ostomy, GI Goals & Outcomes, Gastrointestinal Nutritional intake is adequate for metabolic needs, Pt will achieve normal/improved fluid balance, Pt will have a bowel movement prior to discharge, Pt will maintain adequate GI function appropriate for pt, Pt will maintain normal elimination patterns, Pt willresume/maintain adequate hemodynamic status, Pt will tolerate age appropriate diet prior to discharge, Ostomy will be functioning properly prior to D/C, Pt will correctly state/demonstrate applying ostomy pouch, Pt will correctly state/demonstrate emptying ostomy pouch, Pt will view ostomy, Pt willexperience progressive wound healing, Pt will not experience s/s of infection prior to discharge Interventions, Gastrointestinal Assess/monitor abdomen for distention, tenderness, Assess/monitor abdominal girth & bowel function, Assess/monitor bowel pattern, bowel sounds, flatus, Assess/monitor number of bowel movements, Assess/monitor color, quantity, quality, consistency of stoo, Assess/monitor pt for nausea, vomiting, Assess/monitor intake & output, Assess if pt tolerating diet, DVT prophylaxis as ordered, Teach Pt/caregiver re: importance of bowel regime, Teach Pt/caregiver re:nutritional intake & dietary restrict, Teach/encourage deep breath & cough exercises, Teach/encourage use of incentive spirometer, Assess & Monitor stoma & fito-stomal, Encourage pt to look at ostomy during am/pm care, Encourage self participation as much as possible, Ensure pt D/C'd w/adequate amount of ostomy supplies, Explain to pt what to expect when viewing ostomy, If leaking, RN should change appliance immediately, Measure stoma; cut wafer to fit stoma, Provide proper appliance, Provide spare appliance & encourage pt to practice, Teach pt correct technique for applying pouch, Teach pt correct technique for emptying pouch BH Goals/Interventions, Gastrointestinal Yes Gastrointestinal, Problem Start 02/06/2024 1:53 Reviewed plan with, Gastrointestinal Patient Patient Progression, Gastrointestinal Pt progressing according to plan . Nursing Data Vital Signs : VITAL SIGNS SECTION 02/13/2024 11:00 EDT Temperature 97.9 DegF Temperature Route Oral Pulse Rate 64 bpm Respiratory Rate 18 br/min Systolic Blood Pressure 115 mm Hg Diastolic Blood Pressure 55 mm Hg Blood pressure sites Arm, left Pulse Pressure 60 mm Hg Oxygen Saturation 100 % Mode of Delivery (Oxygen) Room air . Evaluation Pt a&ox4, vitals stable & afebrile. reports moderate abdominal pain relieved with current regimen. denies nausea. Tolerating ostomy diet. +BSx4, Abdomen S/R/tender to palpation above stoma. Stoma moist & pink. Ileostomy bag intact & patent with brown watery stool. voiding WNL. Midline incision approximated with cheri NIKKI. Lovenox teaching w/ successful teachback. Ambulating independently & tolerating. See CIS for assessment. . * Mark Anthony BILLINGSLEY, Lola: PERFORM, SIGN, VERIFY Event Display: Progress Note Hospital Authored Date: Patient: NUVIA MCBRIDE Age: 48 years Sex: Female : 1975 Associated Diagnoses: None Author: Lola Hopson RN Findings Problem Related to Alteration in Gastrointestinal : Alteration in Gastrointestinal Func/new 02/13/2024 1:00 EDT Alteration in GI status Related to Abdominal Surgery, Colorectal Surgery, Ostomy, GI Goals & Outcomes, Gastrointestinal Nutritional intake is adequate for metabolic needs, Pt will achieve normal/improved fluid balance, Pt will have a bowel movement prior to discharge, Pt will maintain adequate GI function appropriate for pt, Pt will maintain normal elimination patterns, Pt willresume/maintain adequate hemodynamic status, Pt will tolerate age appropriate diet prior to discharge, Ostomy will be functioning properly prior to D/C, Pt will correctly state/demonstrate applying ostomy pouch, Pt will correctly state/demonstrate emptying ostomy pouch, Pt will view ostomy, Pt willexperience progressive wound healing, Pt will not experience s/s of infection prior to discharge Interventions, Gastrointestinal Assess/monitor abdomen for distention, tenderness, Assess/monitor abdominal girth & bowel function, Assess/monitor bowel pattern, bowel sounds, flatus, Assess/monitor number of bowel movements, Assess/monitor color, quantity, quality, consistency of stoo, Assess/monitor pt for nausea, vomiting, Assess/monitor effects of re-hydration, Assess/monitor intake &output, Assess if pt tolerating diet, DVT prophylaxis as ordered, Teach Pt/caregiver on bowel elimination interventions, Teach Pt/caregiver re: importance of bowel regime, Teach Pt/caregiver re: nutritional intake & dietary restrict, Teach/encourage deep breath & cough exercises, Teach/encourage use of incentive spirometer Goals/Interventions, Gastrointestinal Yes Gastrointestinal, Problem Start 02/06/2024 1:53 Reviewed plan with, Gastrointestinal Patient Patient Progression, Gastrointestinal Pt progressing according to plan . Nursing Data Gastrointestinal Data. : Gastrointestinal Data. 02/13/2024 0:46 EDT Abdomen Soft, Tender, Round Bowel Sounds LUQ Present Bowel Sounds RUQ Present Bowel Sounds LLQ Present Bowel Sounds RLQ Present Stool color and description Watery, entirely liquid, Green Ostomy present Yes Fecal Bag Intact Stoma description (GI) Moist, Arial GI WNL except Normal Bowel Pattern Other: ileostomy . Vital Signs : VITAL SIGNS SECTION 02/12/2024 19:00 EDT Temperature 98.0 DegF Temperature Route Oral Pulse Rate 75 bpm Respiratory Rate 16 br/min Systolic Blood Pressure 102 mm Hg Diastolic Blood Pressure 66 mm Hg Blood pressure sites Arm, left Pulse Pressure 36 mm Hg Oxygen Saturation 98 % Mode of Delivery (Oxygen) Room air . Pain Data : PAIN SECTION 02/12/2024 20:23 EDT Pain Intensity 8 Pain Intensity 8 . Narrative/Incidental patient is alert and oriented x3. VSS. reports 8/10 pain taking scheduled and PRN medication with good effect. independently ambulating with steady gait. incentive spirometer encouraged. lungs are clear on room air. +2 edema to left lower leg, positive pedal pulses. denies shortness of breath and chest pain. voiding clear, yellow urine.. Evaluation P: alteration in gastrointestinal I: see above E: patients abdomen is soft, round, and tender with positive bowel sounds. ileostomy draining liquid green. stoma is pink and moist. denies nausea. midline is open to air. patient resting in bed withcall sheriff in reach and bed in the lowest locked position. . Discharge Information Case Management Discharge Plan : Case Management Discharge Plan Data 02/08/2024 11:15 EDT Discharge Level of Care at Discharge Homehealth/VNA Discharge VNA/Hospice/Home Care [facility] [phone] Name of Agency #1 [facility] [phone] Agency [facility] #1 Intake Service Categories #1 Intermediate Service Comments #1 [facility] [employer] [facility] [employer] will contact you to schedule a home visit. Please call their office with any questions or concerns. * Shanice Colon RN: MODIFY, MODIFY, SIGN, VERIFY, PERFORM Event Display: Progress Note Hospital Authored Date: Patient: NUVIA MCBRIDE Age: 48 years Sex: Female : 1975 Associated Diagnoses: None Author: Shanice Colon RN Findings Problem Related to Alteration in Gastrointestinal : Alteration in Gastrointestinal Func/new 02/12/2024 12:50 EDT Alteration in GI status Related to Abdominal Surgery, Colorectal Surgery, Ostomy, GI Goals & Outcomes, Gastrointestinal Nutritional intake is adequate for metabolic needs, Pt will achieve normal/improved fluid balance, Pt will have a bowel movement prior to discharge, Pt will maintain adequate GI function appropriate for pt, Pt will maintain normal elimination patterns, Pt willresume/maintain adequate hemodynamic status, Pt will tolerate age appropriate diet prior to discharge, Ostomy will be functioning properly prior to D/C, Pt will correctly state/demonstrate applying ostomy pouch, Pt will correctly state/demonstrate emptying ostomy pouch, Pt will view ostomy, Pt willexperience progressive wound healing, Pt will not experience s/s of infection prior to discharge Interventions, Gastrointestinal Assess/monitor abdomen for distention, tenderness, Assess/monitor bowel pattern, bowel sounds, flatus, Assess/monitor color, quantity, quality, consistency of stoo, Assess/monitor pt for nausea, vomiting, Assess/monitor intake & output, Assess if pt tolerating diet, DVT prophylaxis as ordered, Teach/encourage deep breath & cough exercises, Teach/encourage use of incentive spirometer BH Goals/Interventions, Gastrointestinal Yes Gastrointestinal, Problem Start 02/06/2024 1:53 Reviewed plan with, Gastrointestinal Patient Patient Progression, Gastrointestinal Pt progressing according to plan . Nursing Data Patient Care Data. : Patient Care Data. 02/12/2024 12:49 EDT Turn and Reposition Able to change own position Sequential Compression Device Patient independently ambulating TEDS Not indicated/Not ordered ID band on Yes Allergy band in place/verified Yes Blood Pressure/Venipuncture All 4 limbs may be used Call Sheriff in Reach-Ensure Ability to Use Yes Patient Instructed on Use of Call Sheriff Yes Standard Safety Bed in low position, Non-slip footwear, Upper/Half-length side- rails up, Wheels locked 02/12/2024 12:47 EDT Pt Ed-Learning: Person Taught Patient Pt Ed-Learning: Learning Readiness Yes, alert and oriented 02/12/2024 12:46 EDT Fall Elimination No impairment Fall Agitation/Anxiety/Depression No impairment Fall Related Sign/Symptom/Condition None Fall Cognitive Limitations No impairment Fall Sensory and Physical Function No impairment Fall High Risk for Injury On Coumadin, IV Heparin, or Lovenox Total Falls Risk Score 3 Fall Risk Level Low Risk Falls Prevention Plan for Low Risk Bed in lowest locked position, Provide patient/family falls prevention education, Place personal care items & call sheriff within reach, Instruct patient/family torequest assistance with ambulatio, Instruct patient/family not to get up without assistance, Supervise the patient when ambulating or making transfers, Check that needs are met to minimize attempts to get up, Hourly rounds, Ensure safe & uncluttered environment . Vital Signs : VITAL SIGNS SECTION 02/12/2024 11:00 EDT Temperature 97.9 DegF Temperature Route Oral Pulse Rate 78 bpm Systolic Blood Pressure 122 mm Hg Diastolic Blood Pressure 72 mm Hg Blood pressure sites Arm, left Pulse Pressure 50 mm Hg Oxygen Saturation 100 % Mode of Delivery (Oxygen) Room air . Narrative/Incidental Pt assessed this morning and found to be A+Ox3. lungs are clear, abdomen is soft, muldly tender, + BS. Ileostomy bag is intact, moderate amounts of liquid , brown stool noted. Good pain control with oral pain meds, no c/o nausea or vomiting noted.Pt is OOB at bhavik, ambulating in hallway. Voding in BR CYU. Mid line abdominal incision is NIKKI, well aprox, no drainage noted , cheri in place. Pt is resting comfortably in chair at this time, call sheriff within pt reach. See complete biophysical assessment form in CIS.. Consult note * Audrey Bardales RN: PERFORM, MODIFY, SIGN, VERIFY Event Display: Consultation Note Authored Date: Patient: NUVIA MCBRIDE Age: 48 years Sex: Female : 1975 Associated Diagnoses: None Author: Audrey Bardales RN History of Presenting Problem I returned to bedside today to continue education with Nuvia. Upon arrival to unit I spoke with direct care RN who tells me that Penny has been emptying her pouch independently over the weekend. Per chart review she has had her NGT removed and is now able to eat. Upon arrival to bedside Penny is sitting up on the couch with her street clothes on and her hair done. Her daughter is at bedside. Penny tells me that she is ready to change the pouch with me today but would like to empty it first. She ambulated to the bathroom with her daughter and I watched as she emptied her pouch independently. She needed minimal cues to remind her to flip over the last flap. Penny tells me that she has been rinsing the pouch with water. She explains that she has been doing this all weekend and has not had issues. I advised against this and explained the increased risk for leaking however Penny was firm that she would like to continue. I explained that if her pouch leaked she should stop doing this which she agreed to. I gathered supplies and Penny returned to bedside for her pouch change. When we began to start the pouch change Penny was noted to be tearing up. When I asked her if she would like to talk she began crying and telling me that the transition was hard and depressing for her. 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 Her daughter was tearful as well but a wonderful support for her mom. I offered gentle touch and emotional support. Penny seemed to calm down when her daughter discussed swimming with me as they have a vacation planned in April for her birthday. I explained to them both that the pouches are water-proof and that she can swim/shower with a pouch in place. At this point Penny tells me that she is feeling better and wouldlike to change the pouch with me assisting. Shifting to the pouch change I explained that due to the overlapping we would need to remove the small mid line dressing as well. I then provided the patient with step by step instructions as I performed the following actions: Patient's current pouch removed as well as midline dressing. Patient's stoma is edematous, pink and matured and is noted to hang down . She is noted to have some mild redness around 2-4 o'clock. Patient educated on using warm water only to cleanse the area, she was firm with cleansing and caused some minor irritation at 6o'clock. The area was patted dry and patient waseducated on the use of stomahesive powder and no-sting skin prep spray if skin is irritated. 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 Penny instructed to lift up the overhanging stoma during this step. I educated Penny on measuring the base of the stoma and not the entirety of it. Patient's stoma was measured and pouch wafer was cut to the 45mm sony. An Shahla ring was then applied snuggly around the stoma. The backing of pouch was removed. The pouch was applied directly over stoma and pressed firmly onto abdomen. We then discussed the charcoal filter and vent that is integrated to the S[employer] [place] and possible transitionto Lglu-WE-Jkua due to loose stool. We discussed emptying the pouch at 1/3-1/2 full, changing the pouch every 3-4 days, procedure for showering and swimming with a pouch. In addition we discussed the procedure for discharge with VNA and the use of a mail order service. Questions encouraged and answered. We briefly discussed measuring output and monitoring for dehydration and I informed her that the surgical team will be doing Imodium education with her. Penny tells me that a interactive graphic designer has not yet seen her- we went over the basics of the ostomy/low fiber diet. Her daughter and her were very interested in the supportive information such as [employer] and ostomysecrets.SprinkleBit. I described coloplast care to them and Penny is agreeable to enrollment. Prescriptions were written and put into patient's chart for the MD to sign and supplies were left at the patient's bedside. By the end of our consultation Penny felt much more confident and tells me that she knows she will befine. She and her daughter were emotional but both felt comfortable. They are aware that they can call my office at any time with questions/concerns and that I will call in the near future to follow up. Update provided to direct care RN and Dr. Bright. Pouching Recommendations: Coloplast #[id number] Shahla Ring #[id number] stoma Plan Time spent > 60 minutes * Audrey Bardales RN: PERFORM, MODIFY, SIGN, VERIFY Event Display: Consultation Note Authored Date: Patient: NUVIA MCBRIDE Age: 48 years Sex: Female : 1975 Associated Diagnoses: None Author: Audrey Bardales RN History of Presenting Problem sand technologist education requested following end ileostomy and mucous fistula creation on 02/[address] Lauren. My colleague had previously seen Nuvia for a preoperative sitemarking (please see Omari Gomes RN note for details). 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 Per chart review Nuvia has an NGT is NPO and remains on HEAD WAITER/WAITRESS. Upon arrival to unit I spoke with direct care RN. She tells me that overnight there was a leak with thepouch, thought to be due to her large stoma, and the pouch was changed to a two piece #[id number]. Direct care RN also notes that Nuvia has been very tired and disengaged with the ostomy. Upon arrival to bedside Nuvia is lying in bed with direct care RN and her sister at bedside. I introduced myself and Nuvia is agreeable to discussion and assessment. She appears very tired and uncomfortable (primarily with the NGT). We discussed her history with ostomies (mentioned above) and she tells me that she is processing the fact that she now has an ostomy herself. She tells me that her biggest concern is that it is odorous and that she can smell it now. I assessed her current pouch which is intact without leaks. There is a scant amount of brown tinged bowel sweat within the pouch and the pouch is clean and free of stool on the outside. There is no objective odor per my assessment and Nuvia seems relieved by this. She tells me that she plans to empty it when she showers todayas it was not yet ready to be emptied. I asked her if she knew how to empty this pouch and she and her sister tell me they could figure it out due to history with their Mom. I explained gently that Iwas here to aid them in this process and that I could show them before so that they would not need to figure it out . They are both appreciative and willing to have me involved. I demonstrated on a clean pouch how to open/close the pouch. Nuvia was able to provide a return demonstration without cues. At this time I offered to continue with education if she was feeling up to it. Nuvia tells me that she is very tired and would like to resume another time. I explained that I would be back Monday morning and listed the expectations for that visit (noted below). Nuvia was agreeable to this as was direct care RN. I left the ostomy home skills kit at bedside. Prescriptions are in chart for MD/AP to sign but I will update them with my specific pouch recommendations on Monday. Nuvia also aware that I will provide her with an ostomy kit to take home with supplies prior to discharge. Update provided to Kevon HUNT via [employer]. Plan for Next Visit: Sunday 02/11 - Change ostomy pouch, determine type of pouch, update prescriptions - Review martinez concepts - Loose leaf papers - Powder/[place] Plan Time spent 46-60 minutes * Eliseo BILLINGSLEY, Rodriguez Lay: SIGN, PERFORM, MODIFY, MODIFY, VERIFY Event Display: Consultation Note Authored Date: [id number] Patient: NUVIA MCBRIDE Age: 48 years Sex: Female : 1975 Associated Diagnoses: None Author: Rodriguez Gomes RN History of Presenting Problem laying site sony siting site sony standing site sony Date of Service 02/06/2024 sand technologist consulted for preoperative ostomy site marking. Prior to entering the room, direct care RN states, patient is appropriate to be seen and is independent OOB. Upon arrival to the bedside, patient is lying in bed sleeping but easily arousable. She is alert and oriented x 3. Role of ostomy RNis explained and she is amendable to continuing with consult. Patient states, I would really like education. My mom actually had one and I helped take care of her. I also do home care and also change the bags for them . Patient is provided with an overview of GI anatomy, basic pouching information, daily care and management of an ostomy and lifestyle considerations. She is actively engaged with sand technologist asking appropriate questions throughout the visit. After reviewing ostomy care and lifestyle considerations, patient started the cry. She states, its not the bag that upsets me. Its the pain I feel with the Crohn's. I am sick of this pain. I just want be able to enjoy food and be myself again . Emotional support provided at the bedside and patient states the education helped her. The focus of visit is shifted towards the site marking. The patient reports wearing the waistband of her pants above the umbilicus. The abdomen is then assessed in the laying, sitting, standing positions with attention to all creases, contours and folds. The patient's bilateral iliac crest and rib line are palpated as is the rectus abdominis muscle. A location is chosen in the left and right upper quadrants above the level of the umbilicus, and within the anatomical indicators identified. The patient is noted to have loose skin above umbilicus and creasing at the level of her umbilicus. Lowerquadrants avoided d/t abdomen contour and loose skin that was further away from her abdominal muscles. Patient notified d/t the markings patient would have to change her pants waistband and she was agreeable to do so. D/t her abdomen contour, loose skin and umbilical crease, there is a higher risk of pouching difficulties to her lower quadrants. Each location is marked with a sterile marker and covered with a Tegaderm dressing. She states she can easily visualize each location. All questions are answered. Patient is aware the sand technologist will follow up as necessary post-operatively for ostomy education. Plan Time spent > 60 minutes Note * Eunice Julio RN: PERFORM Event Display: Discharge/Transfer Note Hospital Authored Date: [id number] Nursing Discharge Note Entered On: 02/13/2024 15:43 EDT Performed On: 02/13/2024 15:43 EDT by Eunice Julio RN Nursing Discharge Note 2 Discharge Time : 02/13/2024 15:43 EDT Discharge Level of Care at Discharge : Homehealth/VNA Discharge VNA/Hospice/Home Care(v001) : [facility] [phone] Patient Left Unit Via : Ambulatory Patient Accompanied Off Unit with : Significant other DC Instructions Provided & Signed by Pt : Yes Patient Understands D/C Instructions : Yes Patient Instructions Discharge Signed : Yes Did Pt have Specialty Bed or Wound Vac : No Eunice Julio RN - 02/13/2024 15:43 EDT * Shoshana Sánchez: PERFORM Event Display: Discharge/Transfer Note Hospital Authored Date: [id number] Patient: ??NUVIA MCBRIDE ? Age:??48 Years?Sex:??Female?:??1975?? Admit Date Admission Date: 02/06/2024 Discharge Date 02/13/2024 Discharge Diagnoses 1.??Crohn disease, 02/13/2024 2.??Bowel obstruction, 02/13/2024 3.??Abdominal pain, 02/06/2024 General medical, 02/05/2024 Hospital Course Nuvia is a 48 year old??female with history of poorly controlled Crohn's disease who was recentlyadmitted with??inflammatory stricture and small bowel obstruction??and discharged to home on steroid taper and?? soft/pureed diet on 01/25/24 with plans for outpatient follow-up to discuss surgical treatment options. Patient did not progress at home and??returned to the ED on 02/05 with complaints of??nausea, vomiting, poor??PO tolerance??and decreased bowel function. CT scan of the abdomen/pelvis revealed active inflammatory changes above the ileocecal valve causing high-grade obstruction small bowel obstruction. NGT was placed for decompression. GI was consulted and IV methylprednisone was started. Ostomy??RNs saw the pt for preoperative ostomy??marking. Given her failure of outpatient medical management, she ultimately presented to the OR on 02/07/24 and underwent an open ileocecectomy withend ileostomy and mucus fistula creation with Dr. Lauren. Procedure was well tolerated without anyintraoperative or postoperative??events. She recovered expectantly thereafter with return of ostomyfunction. Her diet was advanced slowly to ostomy diet and she was seen by nutrition for dietary instructions. Her??Browning was??removed and??she??voided spontaneously without issues.??She was given abxfor 24h and then transitioned to flagyl for??a total of 4 weeks. Pt participated in ostomy teachingwith enterostomal nurses. Imodium handout was provided and reviewed with patient. She was??instructed to record her daily ostomy output and refer to handout if output becomes greater than 1200mls/24hrs to prevent dehydration.??She was transitioned to oral medications with good effect and??started on a 3 week steroid taper??per GI. She was noted to have bilateral LE swelling and underwent duplexesof the bilateral LEs, which was??negative. On HD7??she was cleared for discharge to home and provided with??scripts??for Oxycodone (20tabs), Imodium,??Flagyl (30days), steroid taper (3 weeks), Lovenox (30 days), Lidocaine patches??and ostomy??supplies.??She was instructed to follow-up in??the surgery??office for a nursing staple removal appointment on 02/20/2024 at 10:30am and with Dr. Lauren??on03/11/2024 at 8:30am for a postop visit. Pt was also??instructed to f/u with the??Gastroenterology office in 1 month. Objective/Physical Exam on Day of Discharge Vitals & Measurements T:??97.9?F?? HR:??64??(Peripheral)?? RR:??18?? BP:??115/55?? SpO2:??100%?? HT:??163??cm?? WT:??51??kg?? BMI:??19.2? General: No acute distress, awake, alert Cardio: Regular rate and rhythm Lungs: Non labored 100% RA Abdomen: soft,??non-distended,??appropriately tender Ostomy: pink, edematous thin bilious output Neuro: A&O x 3 Extremities: Trace b/l LE edema Incision: Midline incision clean, dry, cheri intact, no surrounding erythema?? Future Appointments Monday 10:30 AM EDT ?? Where: [facility] [address] [place] [address] Drive [address] [place] [address]- Status: Pending Monday 8:30 AM EDT ?? With: Xin MOSQUERA, Staci Ordonez Where: [facility] [address] [place] [address] Drive [address] [place] [address]- Status: Pending Patient Discharge Condition Good Discharge Disposition Home with services Home Health Face to Face *Denotes mandatory albarado ?? *I certify that this patient is under my care and that I or an allowed non- physician working with me had a face to face encounter with the patient on this date:??02/13/2024 13:35 ?? *The encounter with the patient was in whole, or in part, for the following medical condition, which is the primary diagnosis(es) for home health care:??Crohn disease (K50.90) Bowel obstruction (K56.609) ?? *Select the indications for the discipline/s that are being arranged for this patient. Nursing (select all that apply): [_] None [_] Medication management (reconciliation, teaching)?? [_] Chronic disease management?? [_] Wound care and treatment?? [_] Home safety evaluation [X] Administer SQ/IM/IV medications: Lovenox 40mg SQ daily x 30 days?? [_] Cath care?? [_] Drain care?? [_] Trach or GT care?? Other: Ileostomy care and education Occupation Therapy (select all that apply): [x_] None [_] ADL Management [_] Fall prevention training [_] Energy conservation [_] Cognitive training Other _ Physical Therapy (select all that apply): [x_] None [_] Functional mobility training [_] Home exercise program to strengthen [_] Increase ROM?? [_] Falls prevention training [_] Home maintenance program for chronic disease Other _ Speech Therapy (select all that apply): [x_] None [_] Swallow evaluation and training [_] Speech and language training [_] Cognitive training to process, organize, and/or recall information Other _ ? *Homebound due to (select all that apply): [_] Inability to leave home without assistance/supervision [_] Inability to ambulate without assistance [x_] Pain [x_] Decreased strength and endurance [_] Unsteady gait [_] Severe SOB and fatigue [_] Impaired transfers [_] Inability to negotiate stairs [_] Limited weight bearing [_] Mental status change? *Physician Signature:??Dr. Staci Lauren ?? *By signing this, I certify that I have personally evaluated the patient and agree with the findings and recommendations as documented above. ? TF Inpatient Medications Medications (15) Active SCHEDULED: (7) Acetaminophen 325 mg Tablet (Tylenol 325 mg oral tablet) ??975 mg, By Mouth, Every 6 hours Enoxaparin 40 mg Inj (Enoxaparin Inj) ??40 mg 0.4 mL, Subcutaneous Injection, Daily Lidocaine 5% Topical Patch (Lidocaine 5% Patch) ??1 each, Topically, Daily Metronidazole 500mg Tablet (Metronidazole Tablet) ??500 mg, By Mouth, Every 8 hours Pantoprazole 40 mg EC Tablet (pantoprazole 40 mg oral delayed release tablet) ??40 mg, By Mouth, Every 24 hours PredniSONE 20 mg Tablet (predniSONE 20 mg oral tablet) ??40 mg, By Mouth, Daily Remove Patch (Remove Lidocaine Patch) ??1 each, Topically, Daily at bedtime CONTINUOUS: (0) PRN: (8) Chloraseptic Lozenge ??1 lozenge, By Mouth, Every 3 hours Diazepam 5 mg Tablet (Valium Tablet) ??5 mg, By Mouth, Every 8 hours diphenhydrAMINE 50 mg/mL Inj (DiphenhydrAMINE Inj) ??12.5 mg 0.25 mL, IV Push, Every 6 hours Haloperidol Lactate 5 mg/mL Inj (1 mL) (Haloperidol LACTATE Inj) ??1 mg 0.2 mL, IV Push, Every 6 hours nalOXONE ??400mcg/mL Inj (nalOXONE Inj) ??0.1 mg 0.25 mL, IV Push Slowly, Every 5 minutes Ondansetron 2mg/mL Inj (2mL Vial) (Ondansetron Inj) ??4 mg, IV Push, Every 6 hours OxyCODONE 5 mg IR Tablet (oxyCODONE 5 mg oral tablet) ??5 mg, By Mouth, Every 6 hours PROCHLORperazine 5mg/ml Inj (Compazine Inj) ??5 mg 1 mL, IV Push, Every 6 hours Discharge Medications Acetaminophen (acetaminophen 500 mg oral tablet)?1?tab(s)?500?Milligram?By Mouth?Every 6 hours? NEEDED FOR PAIN Ascorbic Acid (Vitamin C 500 mg oral tablet)?1?tab(s)?500?Milligram?By Mouth?Daily Calcium Carbonate (calcium carbonate 600 mg oral tablet)?1?tab(s)?600?Milligram?By Mouth?2 times a day Cyanocobalamin (Vitamin B12)?By Mouth?Daily?otc Enoxaparin (enoxaparin 40 mg/0.4 mL injectable solution)?0.4?Milliliter?40?Milligram?Subcutaneous Injection?Daily?for 30?Days Ferrous Sulfate (ferrous sulfate 325 mg oral tablet)?1?tab(s)?325?Milligram?By Mouth?Daily Lidocaine Topical (lidocaine 5% topical film)?See Instructions?Topically Daily Loperamide (Imodium A-D 2 mg oral tablet)?2?Milligram?1?tablet?By Mouth?2 times aday before breakfast and dinne?as needed?for loose stool Metronidazole (metroNIDAZOLE 500 mg oral tablet)?1?tab(s)?500?Milligram?By Mouth?Every 8 hours?for 30?Days Miscellaneous Rx (Veggie- Fruit Blend)?Oral?Daily Multivitamin With Minerals (Adult Multivitamin Gummies oral tablet, chewable)?1?tab(s)?By Mouth?Daily Oxycodone (oxyCODONE 5 mg oral tablet)?5?Milligram?1?tablet?By Mouth?Every 6 hours?as needed?Pain , Severe PredniSONE (predniSONE 10 mg oral tablet)?See Instructions?3 tablet By Mouth Daily x 7 days then 2 tablets daily x 7 daysthen 1 tablet daily x 7 days then stop Labs Last 24 Hours BLOOD COUNT & DIFF ? Event Name?? Event Result?? Date/Time?? WBC 8 k/mm3 02/13/24 05:46:00 RBC 2.58 m/mm3??Low 02/13/24 05:46:00 Hgb 7.7 Gm/dL??Low 02/13/24 05:46:00 Hct 24.3 %??Low 02/13/24 05:46:00 MCV 94.2 femtoliters 02/13/24 05:46:00 MCH 29.8 pg 02/13/24 05:46:00 MCHC 31.7 g/dL??Low 02/13/24 05:46:00 Platelet Count 383 k/mm3 02/13/24 05:46:00 MPV 8.4 femtoliters??Low 02/13/24 05:46:00 Nucleated RBC (Automated) 0 #/100 WBC'S 02/13/24 05:46:00 ? CHEM GENERAL ? Event Name?? Event Result?? Date/Time?? Sodium 140 mmol/L 02/13/24 05:46:00 Chloride 108 mmol/L??High 02/13/24 05:46:00 Bicarbonate Level 25 mmol/L 02/13/24 05:46:00 Anion Gap 7 02/13/24 05:46:00 BUN 12 mg/dL 02/13/24 05:46:00 Creatinine-Blood 0.59 mg/dL 02/13/24 05:46:00 Calcium, Ionized pH Corrected 1.31 mmol/L 02/13/24 05:46:00 Phosphorus 2.8 mg/dL 02/13/24 05:46:00 Magnesium 1.5 mg/dL??Low 02/13/24 05:46:00 ? Patient Education Titles Web[employer]ite Patient Education - Metronidazole Oral Tablet?? [employer] Patient Education - Zones Post OP Ileostomy?? [employer] Patient Education - Enoxaparin Prefilled Syringe?? Follow-Up Appointments Added Follow Up ?Time Frame ?Comments Jude CRUZ, Nathan?2 to 5 weeks?Follow-up visit for Crohn's disease. Staci Lauren MD?03/11/2024 08:30?Postop visit Colorecal Gen Surg BSA Nurse?02/20/2024 10:30?Nursing visitfor staple removal/wound evaluation. Patient Instructions Colorectal Patients Discharge Instructions For Dr. Vasquez, Dr. Lauren, Dr. Estrada & Dr. Stubbs/Main office phone [phone]?Avoid strenuous activity until the follow-up appointment with your MD. ?No lifting greater than 5-10 pounds. ?? (5 lbs is a bag of sugar) ?No driving until completely off??narcotic pain medication and when cleared with your MD. ?Light walking is allowed and encouraged. ?Daily showering is allowed and encouraged. Do not scrub the incisions. Pat dry. ?Continue to use your incentive spirometer at home, (as you did in the hospital) until the follow-up appointment with your MD. ?No bathing, No swimming and No hot tubs until the follow-up appointment with your MD. ?If your ileostomy output increases to more than ??1200mls??per day and is very watery then begin to follow the guidelines for Loperamide use provided for you upon discharge.? Signs and Symptoms of Infection: ??Call MD office for these:?Fever over 101 degrees ?Increasing redness & swelling of incisions ?Pus or foul smelling drainage coming from your incisions. ?Increasing pain at your incision sites unrelieved by pain medication. Call MD office for: ?Persistent nausea and vomiting. ?If your abdomen is getting increasingly bloated, firm and painful. ?Increasing abdominal pain that is not relieved by your pain medication. ?If your ileostomy STOPS regularly producing gas and stool. ?If your ileostomy is functioning too much, over a liter of liquid stool in a day despite following the all the steps of the Loperamide Guidelines. ?If you need to change your ileostomy pouch frequently due to leaking stool or because the skin under the wafer is becoming raw, wet and painful.?If the color of your stoma becomes deep purple or black. ?If your stoma seems to have pulled away from the skin or has receded into the skin.? Guidelines??for??Loperamide (Imodium??) Use with Ileostomy?? 1.??Monitor, measure, and record your output from your ileostomy ??at home. ??Note: You may have a Visiting Nurse to assist you after discharge. 2.??Your goal should be to keep the output??thick and pasty??and??LESS THAN??1200mls??per day. 3.??If your??output INCREASES to MORE THAN??1200mls??a day??and is??very watery: a.??Start by taking ONE (1) tablet of loperamide (Imodium??) in the morning and at night. ??TOTAL DAILY DOSE: 2 tablets (2 tablets = 4mg)?? 4.??If your??output??CONTINUES??to be MORE THAN??1200mls??per day,??increase to ONE (1) tablet of loperamide (Imodium??) before each meal (breakfast lunch and dinner) and before bedtime. ??TOTAL DAILY DOSE: 4 tablets (4 tablets = 8mg) 5.??If your??output??CONTINUES??to be MORE THAN??1200mls?per day, increase to TWO (2) tablets of??loperamide (Imodium??) before each meal (breakfast lunch and dinner) and before bedtime. ??TOTAL DAILY DOSE: 8 tablets (8 tablets = 16mg), Note: this is the MAXIMUM dose per day 6.??If your??output??CONTINUES??to be MORE THAN??1200mls??per day??(thin and watery): Call your surgeon???s office. ?? a.??You may need additional or different antidiarrheals if your output continues to be high on the maximum dose of loperamide (Imodium??) * Nathan BILLINGSLEY Jayde: PERFORM Event Display: Patient Education/Instruction Authored Date: [id number] Inpatient Adult Discharge Instructions. [address] [id number] Name: NUVIA MCBRIDE : 1975?? Visit: 02/06/2024 06:15?? Current Date: 02/13/2024 14:41 ?? Account: [id number]?? Inpatient Adult Discharge Instructions We would like [...] and their families. Surveys are administered by [employer] ?? If further treatment with your primary care physician or another doctor is recommended, it is important for you to keep the appointment. Call your primary care physician or return to the Emergency Department immediately if your condition worsens, fails to improve, or new symptoms develop. If you need to find a doctor, you can call [facility] for a referral at [phone] or toll free at [phone]) or log in to [email or web address].. ?? [facility], in keeping with [facility] guidance, no longer requires face masks for [...] a health care syeda of your choosing. [employer] is a website that allows you to securely view your medical information including your hospital discharge summary, office visit summaries, medications and follow-up visits. You can also request appointments, renew medications, and request access to your medical information using a health care syeda of your choosing, or just ask a question. You can enroll at [email or web address] or register during your next office visit. You have been discharged from [facility], Patient Care Unit: SW6??. If you have any questions regarding these instructions, including results of studies pending, afteryou leave, please call us and we will be happy to assist you 27/03. [facility] Your Care Team Attending Physician Staci Lauren MD?? Consulting Providers Staci Lauren MD?? Discharging Providers Shoshana Sánchez Reason for Your Visit Pt states she is having a Crohn???s disease flare up and her abdomen is in a lot of pain. Pt alert oriented x4, positive ABCs. Currently being wheened off prednisone for upcoming surgery.?? Your Diagnosis Crohn disease Bowel obstruction Abdominal pain General medical Tests Performed Below is a partial list of the tests performed during your hospitalization. You may have had other tests and procedures not included in this list. Please discuss all test results with your provider. BUN C-REACTIVE PROTEIN CBC w/ Differential Comprehensive Metabolic Panel Creatinine Electrolytes Hold Blue Top Tube Ionized Calcium Lactic Acid Level Lipase Magnesium Level Phosphorus Level PREALBUMIN PT (INR) SEDIMENTATION RATE,AUTOMATED Type and Screen Urinalysis w/hold for Urine Culture URINE CT Abd/Pelvis W/ IV Contrast Only CXR Portable Doppler Ext Lower Venous Right (US) US Doppler Ext Lower Venous Left XR Chest Portable Add On Lab Order?? BUN?? CBC w/ Differential?? Creatinine?? Electrolytes?? Ionized Calcium?? Magnesium Level?? Pathology Tissue Request ()?? Phosphorus Level?? Primary Care Provider Gwendolyn Luis MD? Advance Directive Health Care Proxy on File Yes - Health Care Proxy Name of Caregiver: KEN ROSE Patient has a Designated Caregiver: Yes Discharge Vitals Temperature: 97.9 DegF Height: 163 cm Pulse Rate: 64 bpm Weight: 51 kg Respiratory Rate: 18 br/min Body Mass Index: 19.2 kg/m2 Systolic Blood Pressure: 115 mm Hg Body surface area: 1.52 Diastolic Blood Pressure: 55 mm Hg ?? Oxygen Saturation: 100 % ?? Studies Pending All studies ordered during this hospital stay have been completed unless listed below. Please discuss all pending results with your provider listed above in these instructions. ?? Add On Lab Order?? BUN?? CBC w/ Differential?? Creatinine?? Electrolytes?? Ionized Calcium?? Magnesium Level?? Pathology Tissue Request ()?? Phosphorus Level?? What to do next Instructions From Your Doctor Colorectal Patients Discharge Instructions For Dr. Vasquez, Dr. Lauren, Dr. Estrada & Dr. Stubbs/Main office phone [phone]?Avoid strenuous activity until the follow-up appointment with your MD. ?No lifting greater than 5-10 pounds. ?? (5 lbs is a bag of sugar) ?No driving until completely off??narcotic pain medication and when cleared with your MD. ?Light walking is allowed and encouraged. ?Daily showering is allowed and encouraged. Do not scrub the incisions. Pat dry. ?Continue to use your incentive spirometer at home, (as you did in the hospital) until the follow-up appointment with your MD. ?No bathing, No swimming and No hot tubs until the follow-up appointment with your MD. ?If your ileostomy output increases to more than ??1200mls??per day and is very watery then begin to follow the guidelines for Loperamide use provided for you upon discharge.? Signs and Symptoms of Infection: ??Call MD office for these:?Fever over 101 degrees ?Increasing redness & swelling of incisions ?Pus or foul smelling drainage coming from your incisions. ?Increasing pain at your incision sites unrelieved by pain medication. Call MD office for: ?Persistent nausea and vomiting. ?If your abdomen is getting increasingly bloated, firm and painful. ?Increasing abdominal pain that is not relieved by your pain medication. ?If your ileostomy STOPS regularly producing gas and stool. ?If your ileostomy is functioning too much, over a liter of liquid stool in a day despite following the all the steps of the Loperamide Guidelines. ?If you need to change your ileostomy pouch frequently due to leaking stool or because the skin under the wafer is becoming raw, wet and painful.?If the color of your stoma becomes deep purple or black. ?If your stoma seems to have pulled away from the skin or has receded into the skin.? Guidelines??for??Loperamide (Imodium??) Use with Ileostomy?? 1.??Monitor, measure, and record your output from your ileostomy ??at home. ??Note: You may have a Visiting Nurse to assist you after discharge. 2.??Your goal should be to keep the output??thick and pasty??and??LESS THAN??1200mls??per day. 3.??If your??output INCREASES to MORE THAN??1200mls??a day??and is??very watery: a.??Start by taking ONE (1) tablet of loperamide (Imodium??) in the morning and at night. ??TOTAL DAILY DOSE: 2 tablets (2 tablets = 4mg)?? 4.??If your??output??CONTINUES??to be MORE THAN??1200mls??per day,??increase to ONE (1) tablet of loperamide (Imodium??) before each meal (breakfast lunch and dinner) and before bedtime. ??TOTAL DAILY DOSE: 4 tablets (4 tablets = 8mg) 5.??If your??output??CONTINUES??to be MORE THAN??1200mls?per day, increase to TWO (2) tablets of??loperamide (Imodium??) before each meal (breakfast lunch and dinner) and before bedtime. ??TOTAL DAILY DOSE: 8 tablets (8 tablets = 16mg), Note: this is the MAXIMUM dose per day 6.??If your??output??CONTINUES??to be MORE THAN??1200mls??per day??(thin and watery): Call your surgeon???s office. ?? a.??You may need additional or different antidiarrheals if your output continues to be high on the maximum dose of loperamide (Imodium??) ?? Orders? 02/13/24 13:38:00 EDT?? Prescriptions??, ??02/13/24 13:38:00 EDT , ??02/13/24 13:38:00 EDT?? Scheduled Follow-Up Appointments Monday 10:30 AM EDT ?? Where: [address] [place] [address]- Status: Pending Monday 8:30 AM EDT ?? With: Staci Lauren MD Where: [address] [place] [address]- Status: Pending You Need to Schedule the Following Appointments Follow Up with??Staci Lauren MD When:??03/11/2024 08:30 AM EDT Why: Postop visit Where: [address] [place] [address], [address] [place] [address]- Follow Up with??Colorecal Gen Surg BSA Nurse When:??02/20/2024 10:30 AM EDT Why: Nursing visit for staple removal/wound evaluation. Where: [address] [place] [address] , [address] [place], [place] Follow Up with??Nathan Roque DO When:??Within 2 to 5 weeks Why: Follow-up visit for Crohn's disease. Where: [address] [facility] [place] [address]- Discharge Medications NUVIA MCBRIDE :1975 Visit Date:02/06/2024 Medications: Please continue your medications until treatment is completed or stopped by your provider. Medications not listed below should be discontinued. Discuss any questions related to medications with your provider. What How Much When Instructions Next Dose New Enoxaparin (enoxaparin 40 mg/ 0.4 mL injectable solution) 0.4 Milliliter Subcutaneous Injection Daily Duration: 30 Days Pickup at [place] [address] 9am? 02/14/24 New Lidocaine Topical (lidocaine 5% topical film) See instructions Topically Daily ?? Pickup at [place] [address] 9am on 9pm off New Loperamide (Imodium A-D 2 mg oral tablet) 1 tab(s) Oral 2 times a day before breakfast and dinner as needed for for loose stool Pickup at [place] [address] as needed New Metronidazole (metroNIDAZOLE 500 mg oral tablet) 1 tab(s) Oral Every 8 hours Duration: 30 Days Pickup at [place] [address] take 8a/ 4p/ 12 am New Oxycodone (oxyCODONE 5 mg oral tablet) 1 tab(s) Oral Every 6 hours as needed for Pain , Severe Pickup at [place] [address] as needed Changed PredniSONE (predniSONE 10 mg oral tablet) See instructions 3 tablet By Mouth Daily x 7 days then 2 tablets daily x 7 days then 1 tablet daily x 7 days then stop ?? Pickup at [place] [address] as directed Unchanged Acetaminophen (acetaminophen 500 mg oral tablet) 1 tab(s) Oral Every 6 hours NEEDED FOR PAIN ?? as needed Unchanged Ascorbic Acid (Vitamin C 500 mg oral tablet) 1 tab(s) Oral Daily 9am 02.14.24 Unchanged Calcium Carbonate (calcium carbonate 600 mg oral tablet) 1 tab(s) Oral Twice a day take 8a-8pm Unchanged Cyanocobalamin (Vitamin B12) Oral Daily otc ?? 02/14/24 Unchanged Ferrous Sulfate (ferrous sulfate 325 mg oral tablet) 1 tab(s) Oral Daily m 02/14/24 Unchanged Miscellaneous Rx (Veggie- Fruit Blend) Oral Daily as directed Unchanged Multivitamin With Minerals (Adult Multivitamin Gummies oral tablet, chewable) 1 tab(s) Oral Daily as directed Pharmacy Information [place] [address]: [address] [place], [place] [id number] [phone] Prescription Given During Visit Enoxaparin (enoxaparin 40 mg/0.4 mL injectable solution) - 0.4 mL = 40 mg, Subcutaneous Injection, Daily, # 12 mL, 0 Refills, [place] [address] [phone]?? Lidocaine Topical (lidocaine 5% topical film) - , # 30 patch, 0 Refills, Topically Daily, [place] [address] [id number]?? Loperamide (Imodium A-D 2 mg oral tablet) - 1 tablet = 2 mg, By Mouth, 2 times a day before breakfast and dinne, # 60 tablet, 0 Refills, [place] [address] [phone]?? Metronidazole (metroNIDAZOLE 500 mg oral tablet) - 1 tablet = 500 mg, By Mouth, Every 8 hours, # 90tablet, 0 Refills, [place] [address] [id number]?? Oxycodone (oxyCODONE 5 mg oral tablet) - 1 tablet = 5 mg, By Mouth, Every 6 hours, # 20 tablet, 0 Refills, [place] [address] [id number]?? PredniSONE (predniSONE 10 mg oral tablet) - , # 42 tablet, 0 Refills, 3 tablet By Mouth Daily x 7 days then 2 tablets daily x 7 daysthen 1 tablet daily x 7 days then stop, [place] [address] [id number]?? Laboratory Results Below is a partial list of the most recent Laboratory test results done prior to this discharge. You may have had other tests and procedures not included in this list. Please discuss all test resultswith your provider. Est Creatinine Clearance - 93.88 mL/min (02/13/2024) BUN (02/13/2024) ???BUN - 12 mg/dL C-REACTIVE PROTEIN (02/05/2024) ???C-Reactive Protein - 3.4 mg/dL CBC w/ Differential (02/13/2024) ???WBC - 8.0 k/mm3???RBC - 2.58 m/mm3???Hgb - 7.7 Gm/dL???Hct - 24.3 %???MCV - 94.2 femtoliters???MCH - 29.8 pg???MCHC - 31.7 g/dL???Platelet Count - 383 k/mm3???RDW-SD - 49.9 femtoliters???MPV - 8.4femtoliters???Nucleated RBC (Automated) - 0.0 #/100 WBC'S???Abs. NRBC - 0.0 k/mm3???Abs. Neut - 3.2 k/mm3???Abs. Lymph - 4.1 k/mm3???Abs. [place] - 0.5 k/mm3???Abs. Eo - 0.2 k/mm3???Abs. Baso - 0.0 k/mm3???Neut % - 40.1 %???Lymph % - 51.5 %???[place] % - 5.8 %???Eos % - 1.9 %???Baso % - 0.3 %???Imm Gran - 0.4 %???Abs. Imm Gran - 0.0 k/mm3 Comprehensive Metabolic Panel (02/05/2024) ???Sodium - 141 mmol/L???Potassium - 4.6 mmol/L???Chloride - 104 mmol/L???Bicarbonate Level - 26 mmol/L???Anion Gap - 11???Glucose Level - 138 mg/dL???BUN - 27 mg/dL???Creatinine-Blood - 0.73 mg/dL???Estimated GFR Creatinine - 101 ML/MIN/1.73 M2???Calcium - 9.7 mg/dL???Protein, Total - 5.9 Gm/dL???Albumin - 3.3 Gm/dL???AG Ratio - 1.3???Alkaline Phosphatase - 83 units/L???AST (SGOT) - 10 units/L???ALT (SGPT) - 12 units/L? ?Bilirubin, Total - <0.2 mg/dL Creatinine (02/13/2024) ???Creatinine-Blood - 0.59 mg/dL???Estimated GFR Creatinine - 111 ML/MIN/1.73 M2 Electrolytes (02/13/2024) ???Sodium - 140 mmol/L???Potassium - 4.0 mmol/L???Chloride - 108 mmol/L???Bicarbonate Level - 25 mmol/L???Anion Gap - 7 Hold Blue Top Tube (02/05/2024) ???Hold Blue Top - SPECIMEN DISCARDED AFTER 4 HOURS. Ionized Calcium (02/13/2024) ???Calcium, Ionized pH Corrected - 1.31 mmol/L Lactic Acid Level (02/05/2024) ???Lactate - 1.1 mmol/L Lipase (02/05/2024) ???Lipase - 15 units/L Magnesium Level (02/13/2024) ???Magnesium - 1.5 mg/dL Phosphorus Level (02/13/2024) ???Phosphorus - 2.8 mg/dL PREALBUMIN (02/05/2024) ???Prealbumin - 23.9 mg/dL PT (INR) (02/07/2024) ???INR - 1.0???Protime (PT) - 10.7 seconds SEDIMENTATION RATE,AUTOMATED (02/05/2024) ???Sed Rate - 29 mm/hr Type and Screen (02/06/2024) ???Blood Type - O Positive???Antibody Screen - Negative Urinalysis w/hold for Urine Culture (02/06/2024) ???Appear/Color, Urine - LIGHT YELLOW???Specific [place], Urine - 1.047???pH, Urine - 6.0???Albumin, Urine - NEGATIVE???Glucose, Urine - NEGATIVE???Ketones, Urine - NEGATIVE???Bilirubin, Urine - NEGATIVE???Hemoglobin, Urine - NEGATIVE???Nitrite, Urine - NEGATIVE???Leukocyte, Urine - NEGATIVE???Urobi linogen - NORMAL???WBC's, Urine - 1 /HPF???RBC's, Urine - 2 /HPF???Bacteria - SLIGHT???Squamous Epith - 1 /HPF???Mucus - SLIGHT???Hold Urine Culture - Testing available 48 hours from time of collection. URINE (02/06/2024) ???Urine, - NEGATIVE Allergies (NKA means No Known Allergies) Rinvoq??(Shingles) Problems Active Problems??(1) Latent tuberculosis by blood test?? Education Materials Below is the list of Educational Leaflet Providered with your Discharge Instructions. [employer] Patient Education - Metronidazole Oral Tablet?? [employer] Patient Education - Zones Post OP Ileostomy?? [employer] Patient Education - Enoxaparin Prefilled Syringe?? Valuables and Belongings I fully understand and agree that [facility] accepts no responsibility for all my personal [...] of Valuable and Belonging List: With patient Possessions released to: no ??medical ??advices Date for Pt to Sign Valuables/Belongings: 02/06/24 06:32:00 ?? Other Discharge Information ? Case Management Discharge Plan?? Discharge Plan?? Discharge Agency Information?? Discharge Level of Care at Discharge: Homehealth/VNA Name of Agency #1: [facility] [phone] Discharge Rx Program: Discharge Prescription Program Agency [facility] Spinner #1: Intake Discharge VNA/Hospice/Home Care: [facility] [phone] Service Categories #1: Intermediate ?? [facility] Comments [facility]. ??Please call their office with any questions or concerns. ?? Pulmonary Rehab Status?? Pulmonary Rehab Discharge Status?? [...] are strongly encouraged to quit. Please call [facility] [employer] [facility] at [phone] or [phone]) or log in to [email or web address] for referrals to smoking cessation programs. ?? 675 Suicide & Crisis Lifeline is available 27/03 if you or someone you know needs to find a reason to keep living. By calling 031 you'll be connected to a skilled, trained counselor at a crisis center in your area. INPATIENT DISCHARGE INSTRUCTIONS SIGNATURE PAGE NUVIA MCBRIDE Location:[facility] Registration Date and Time:02/06/2024 06:15 EDT Primary Care Physician: Gwendolyn Luis MD, Attending Physician: Xin MOSQUERA, Staci Ordonez, I NUVIA MCBRIDE, have received the above patient education materials/instructions and have verbalized understanding. If ambulance or transport services are being used I further acknowledge being given a choice of service. ?? If you need to contact me, please call me at this number: . Patient/Training And Quality Manager Name: Patient/Training And Quality Manager Signature: Relationship to Patient: Witness Name/Signature: Date: * Shoshana Sánchez: PERFORM Event Display: Patient Education Leaflets Authored Date: [id number] Metronidazole Oral Tablet ?? 23119-04 Metronidazole Oral Tablet Brands: Flagyl Uses For infection. ?? Instructions Swallow with a full glass (8 oz) of water unless your doctor gives you different instructions. You may take with food to prevent stomach upset. This medicine will work best if you take it at about the same time every day. Space doses evenly to keep a steady amount of medicine in the body. Keep the medicine at room temperature. Avoid heat and direct light. If you forget to take a dose on time, take it as soon as you remember. If it is almost time for thenext dose, do not take the missed dose. Return to your normal schedule. Do not take 2 doses at one time. Drug interactions can change how medicines work or increase risk for side effects. Tell your healthcare providers about all medicines taken. Include prescription and uutn-tiv-rmglrxy medicines, vitamins, and herbal medicines. Speak with your doctor or pharmacist before starting or stopping any medicine. Tell your doctor if symptoms do not get better or if they get worse. Keep using this medicine for the full number of days that it is prescribed. Do not stop the medicine even if you start to feel better. Keep all appointments for medical exams and tests while on this medicine. ?? Cautions Tell your doctor and pharmacist if you ever had an allergic reaction to a medicine. Do not use the medication any more than instructed. Your ability to stay alert or to react quickly may be impaired by this medicine. Do not drive or operate machinery until you know how this medicine will affect you. Avoid alcohol and products containing propylene glycol during and for 3 days after treatment with this medicine. Speak with your health care provider before receiving any vaccinations. Please tell your doctor if you have moderate to severe diarrhea while on this medicine. Do not treat the diarrhea with htek-bqx-ytnipdr diarrhea medicine. This medicine passes into breast milk. Ask your doctor before . During , this medicine should be used only when clearly needed. Talk to your doctor about the risks and benefits. Do not share this medicine with anyone who has not been prescribed this medicine. ?? Side Effects The following is a list of some common side effects from this medicine. Please speak with your doctor about what you should do if you experience these or other side effects. ??? decreased appetite ??? diarrhea ??? dizziness ??? headaches ??? nausea and vomiting ??? stomachupset or abdominal pain ??? changes in taste or unpleasant taste Call your doctor or get medical help right away if you notice any of these more serious side effects: ??? confusion ??? numbness or tingling in hands and feet ??? severe or persistent headache ??? signs of liver damage (such as yellowing of eye or skin, dark urine, or unusual tiredness) ??? seizures ??? unsteadiness while walking ??? difficulty or discomfort urinating ??? vaginal itching or yeast infection ??? sudden change or loss of vision A few people may have an allergic reaction to this medicine. Symptoms can include difficulty breathing, skin rash, itching, swelling, or severe dizziness. If you notice any of these symptoms, seek medical help quickly. ?? Extra Please speak with your doctor, nurse, or pharmacist if you have any questions about this medicine. ?? [email or web address] IMPORTANT NOTE: This document tells you briefly how to take your medicine, but it does not tell youall there is to know about it. Your doctor or pharmacist may give you other documents about your medicine. Please talk to them if you have any questions. Always follow their advice. There is a more complete description of this medicine available in [place]. Scan this code on your smartphone or tablet or use the web address below. You can also ask your pharmacist for a printout. If you have any questions, please ask your pharmacist. The display and use of this drug information is subject to Terms of Use. Copyright(c) 2023 ownCloud. ?? The Helpmy[employer]. All rights reserved. This information is not intended as a substitute for professional medical care. Always follow your healthcare professional's instructions. ?? * Shoshana Sánchez: PERFORM Event Display: Patient Education Leaflets Authored Date: [id number] Zones Post OP Ileostomy ?? 447 ? POST-OP ILEOSTOMY ZONES EVERY DAY ? You should measure your ileostomy output and write it down in your log ? Keep track of the amount that you pee ? Drink 6-8 glasses of fluid each day (1 glass = 8 ounces of liquid) ? Eat foods that make the amount of gas tolerable ? Follow the Ostomy Diet guidelines provided when in the hospital Which Zone are you today? GREEN, YELLOW, or RED? GREEN ZONE ALL CLEAR - This zone is your goal. ? Ileostomy output is between 500 ml and 1,200 ml a day ? Stool should be thick and mushy like applesauce ? Able to drink 6-8 glasses of liquids each day ? Able to eat solid foods with occasional gas ? Able to pee every 4 hours and the pee color is pale yellow YELLOW ZONE ?? STOP & CALL CAUTION - This zone is a warning STOP Call your Doctor/Nurse: if the following occurs: ? Your ileostomy output is less than 500 ml per day ? OR your ileostomy output is greater than 1,200 ml per day and very watery ? Nausea or abdominal swelling ? You have difficulty drinking 6-8 glasses of liquids each day ? Decreased appetite for solid foods ? Decreased ability to pee or have dark colored pee RED ZONE EMERGENCY: (DO NOT DRIVE YOURSELF). Speak with a Doctor/Nurse RIGHT AWAY if you have any of the following: ? Vomiting, bloating, abdominal pain or symptoms that stop you from eating & drinking ? Dry mouth and not peeing ? Dizziness, weakness, and a pounding or racing heart beat ? No output at all from your ileostomy for 24 hours ? OR Ileostomy output is more than 1200 ml per day and very watery 1,200 ml = 40 fluid ounces = 1 ?? liters = 1 ?? quarts ?? Survival Skills for a New Ileostomy ? A good diet is important for maintaining a healthy weight and healing after surgery. ? After surgery, your bowel is swollen and you should avoid high-fiber foods that are harder to digest. Foods to Avoid: Fruits/Vegetables Recommended: Whole grains Suarez Nuts Seeds Raw fruits Raw Vegetables Bananas Canned fruits Applesauce Soft, cooked vegetables such as carrots, pureed butternut squash Well-cooked green beans Pureed soups with vegetables are also a good way to get nutritious vegetables. ? Your appetite may not be as good as before surgery. Try to eat small meals or snacks every few hours. ? Most patients begin to eat more normally six weeks after surgery. Try addingone new food every few days to see if it agrees with you. ? Make sure you are getting enough fluid to prevent dehydration.?? Milk or lactose-free milk, watered down juices or Gatorade G2 is recommended.?? Avoid carbonated and sugary drinks.?? Sugary drinks can increase output. ? You may have excessive loss of electrolytes if you have high ostomy output (Greater than 1200mL/day).?? Ask your doctor or dietitian if you need to increase sodium (salt) or potassium in your diet. ? To thicken ostomy output, try: ? Bananas ? Applesauce ? Cheese ? Mashed potatoes ? White rice ? Creamy peanut butter ? Marshmallows ? Pretzels ? Yogurt with active cultures ? If food seems to be ???going through too quickly,?? try drinking your fluid30 minutes after meals to slow down your ostomy output. ? Try to eat your larger meal at noontime and metal can inspector meal in the evening to help decrease stool output at night. ? To prevent blockages, chew your food well and avoid: ? Raw vegetables ? Unpeeled apples ? [place] ? Popcorn ? Celery ? Mushrooms ? Grapes ? Dried fruits ?? For a complete list, ask your Registered Dietitian ? Take a chewable multivitamin with minerals (not gummies) daily. ? Let your medical provider know if you are seeing whole pills or food in you ostomy pouch. ? Questions about nutrition: ask your medical provider to refer you to a Registered Dietitian or for a nutrition referral ? * Shoshana Sánchez: PERFORM Event Display: Patient Education Leaflets Authored Date: [id number] Enoxaparin Prefilled Syringe ?? [id number] Enoxaparin Prefilled Syringe Brands: Lovenox Uses This medicine is used for the following purposes: ??? heart attack ??? prevent blood clots ??? treatment of blood clots ?? Instructions This medicine is injected into the skin. Ask your doctor, nurse, or pharmacist where on your body this medicine can be injected and how to inject it. Do not mix this medicine with other solutions. Always inspect the medicine before using. The liquid should be clear or light yellow. Check the medicine before each use. If the liquid medicine has any particles in it, appears discolored, or if the vial appears damaged, do not use it. Keep medicine at room temperature. Protect from light. Never use any medicine that has . Change the location of the injection each time. Choose a location at least 1 inch from the last injection. Drug interactions can change how medicines work or increase risk for side effects. Tell your healthcare providers about all medicines taken. Include prescription and dcwm-rwb-iqluafw medicines, vitamins, and herbal medicines. Speak with your doctor or pharmacist before starting or stopping any medicine. Talk to your doctor before taking other medicines, including aspirins and ibuprofen containing products. Speak to your doctor about which medicines are safe to use while you are on this medicine. It is very important that you follow your doctor's instructions for all blood tests. ?? Cautions This medicine may cause bleeding from the stomach or bowels. Stop this medicine and call your doctor right away if you have pain in the stomach, red or dark tarry stools, or vomit that looks like coffee grounds. There is an increased risk of bleeding while on this medicine, please tell your doctor or nurse if you notice any excessive bleeding or bruising. Do not use the medication any more than instructed. Tell the doctor or pharmacist if you are , planning to be , or . Ask your pharmacist how to properly throw away used needles or syringes. Do not share this medicine with anyone who has not been prescribed this medicine. ?? Side Effects The following is a list of some common side effects from this medicine. Please speak with your doctor about what you should do if you experience these or other side effects. ??? unusual bruising or discoloration on skin ??? swelling of the legs, feet, and hands ??? fever ??? pain, redness, swelling near injection ??? nausea ??? red, burning, or itchy skin Call your doctor or get medical help right away if you notice any of these more serious side effects: ??? confusion ??? nosebleeds ??? bloody or dark, tarry stools A few people may have an allergic reaction to this medicine. Symptoms can include difficulty breathing, skin rash, itching, swelling, or severe dizziness. If you notice any of these symptoms, seek medical help quickly. ?? Extra Please speak with your doctor, nurse, or pharmacist if you have any questions about this medicine. ?? [email or web address] IMPORTANT NOTE: This document tells you briefly how to take your medicine, but it does not tell youall there is to know about it. Your doctor or pharmacist may give you other documents about your medicine. Please talk to them if you have any questions. Always follow their advice. There is a more complete description of this medicine available in [place]. Scan this code on your smartphone or tablet or use the web address below. You can also ask your pharmacist for a printout. If you have any questions, please ask your pharmacist. The display and use of this drug information is subject to Terms of Use. Copyright(c) 2023 ownCloud. ?? The Helpmycash. All rights reserved. This information is not intended as a substitute for professional medical care. Always follow your healthcare professional's instructions. ?? * Andrew Copeland RN: PERFORM, SIGN, VERIFY Event Display: Case Management Discharge Plan Authored Date: Patient: NUVIA MCBRIDE Age: 48 years Sex: Female : 1975 Associated Diagnoses: None Author: Andrew Copeland RN Discharge Plan Case Management Discharge Plan : Case Management Discharge Plan Data 02/08/2024 11:15 EDT Discharge Level of Care at Discharge Homehealth/VNA Discharge VNA/Hospice/Home Care [facility] [phone] Name of Agency #1 [facility] [phone] Agency Mule Spinner #1 Intake Service Categories #1 Intermediate [facility]. Please call their office with any questions or concerns. Patient Care team information Care Team Personnel Name: Gema Garcia RN Position: [facility] RN Member Role: Primary Care Nurse Name: Radha Jean-Baptiste RN Position: S RN Member Role: Primary Care Nurse Name: Shanice Colon RN Position: S RN Member Role: Primary Care Nurse Name: Catherine Barba RN Position: [facility] RN Member Role: Primary Care Nurse Name: Oswaldo Pisano RN Position: [facility] RN Member Role: Primary Care Nurse Name: Gwendolyn Luis MD Position: [facility] Physician - Primary Care Member Role: PCP Address: Address: [address] [place] [id number] Name: Lola Hopson RN Position: [facility] RN Member Role: Primary Care Nurse Name: Vivian Turpin RN Position: S RN Member Role: Primary Care Nurse Name: Radha Carroll RN Position: [facility] RN Member Role: Primary Care Nurse Name: Eunice Julio RN Position: S RN Member Role: Primary Care Nurse Care Team Related Persons Name: KEN MIMS Name: HELDER MCBRIDE Address: home [address] [place] [id number] Name: RAMO MCBRIDE Address: home [address] [place] [address] Name: MEHREEN GIANG
--- OUTSIDE RECORDS SUMMARY | 2024-03-30 12:48 | XMS_ITS | Continuity of Care Document ---
Author Organization [facility] Address [address] [place] [address]- Care Team Providers Care Senior Ios Developer Name Role Phone Gwendolyn Luis MD Primary Care Physician [phone] Encounter [facility] Date(s): 11/10/22 - 12/10/22 [facility] [address] [address]- Attending Physician: Amish Steiner Admitting Physician: Amish Steiner Referring Physician: AdmtrAmish Allergies, Adverse Reactions, Alerts No Known Allergies Medications acetaminophen-oxycodone 500 mg-5 mg oral capsule See Instructions, Scheduled / PRN, 15, 0, 0, 04/12/08 16:46:12, as needed for pain, 1 capsule By Mouth Every 6 hours, Print NADEEM Number, ADS OPPT Start Date: 04/12/08 Status: Ordered Crutches See Instructions, # 1 pair, Maintenance, foot fx, 12/25/14 22:22:21, Compound Start Date: 12/25/14 Status: Ordered rifampin 300 mg oral capsule 2 capsule = 600 mg, By Mouth, Daily, # 60 capsule, 3 Refills, Maintenance, 08/09/22 8:15:00 EST, [facility] #1 bottle home delivery: [address] [place]; [phone], 163, cm, 08/02/22 10:56:00 EST, Height Start Date: 08/09/22 Stop Date: 12/07/22 Status: Ordered Patient Care team information Care Team Personnel Name: Gwendolyn Luis MD Position: [facility] Physician (General Medicine) Member Role: PCP Address: Address: [address] [place] [id number] Care Team Related Persons Name: HELDRE MCBRIDE Address: home [address] [place] [address] Name: RAMO MCBRIDE Address: home [address] [place] [address]
--- OUTSIDE RECORDS SUMMARY | 2024-03-30 12:48 | XMS_ITS | Continuity of Care Document ---
Author Organization [facility] Address [address] [place] [address] ve [address] [place] [address]- Care Team Providers Care Privacy Attorney Name Role Phone Gwendolyn Luis MD Primary Care Physician En[place] [facility] Date(s): 01/04/24 - 02/03/[address] [place] [address]- Allergies, Adverse Reactions, Alerts Substance Reaction Severity [...] 0 Refills, Maintenance, 01/25/24 12:02:00 EDT, Tablet, [facility] Start Date: 01/25/24 Status: Ordered Veggie- [...] Team Personnel Name: Gema Garcia RN Position: [facility] RN Member Role: Primary Care Nurse Name: Radha Jean-Baptiste RN Position: S RN Member Role: Primary Care Nurse Name: Gwendolyn Luis MD Position: [facility] Physician - Primary Care Member Role: PCP Address: Address: [address] [place] [id number] Name: Vivian Turpin RN Position: S RN Member Role: Primary Care Nurse Care Team Related Persons Name: HELDER MCBRIDE Address: home [address] [place] [id number] Name: REED RAMO Address: home [address] [place] [id number]
--- OUTSIDE RECORDS SUMMARY | 2024-03-30 12:48 | XMS_ITS | Continuity of Care Document ---
Author Organization [facility] Address [address] [place] [address] [address] [place] [address]- Care Team Providers Care Mental Health Advanced Practice Nurse Name Role Phone Gwendolyn Luis MD Primary Care Physician Encounter [facility] Date(s): 01/05/24 - 03/10/[address] [place] [address]- Attending Physician: Bhavani Vasquez MD Referring Physician: [...] 03/14/24 13:12:00 EDT, 02/13/24 13:12:00 EDT, Injection, [facility], Partial fill upon patient [...] 02/13/24 13:15:00 EDT, Route to Pharmacy Electronically, [facility], Partial fill upon patien... Start Date: 02/13/24 Status: Ordered lidocaine 5% topical film See Instructions, Topically Daily, # 30 patch, 0 Refills, Maintenance, 02/13/24 13:12:00 EDT, Patch, [facility], Partial fill upon patient request if the prescription is for a schedule II opioid drug., Topically Daily, 163, cm, 02/09/24... Start Date: 02/13/24 Status: Ordered metroNIDAZOLE 500 mg oral tablet 1 tablet = 500 mg, By Mouth, Every 8 hours, for 30 days, # 90 tablet, 0 Refills, Acute 03/14/24 13:13:00 EDT, 02/13/24 13:13:00 EDT, Tablet, [facility], Partial fill upon patient request if the prescription is for a schedule II opioid dr... Start Date: 02/13/24 Stop Date: 03/14/24 Status: Ordered oxyCODONE 5 mg oral tablet 5 mg, 1, tablet, By Mouth, Every 6 hours, PRN, # 20 tablet, Refills 0, Tot. Refills 0, Maintenance,Pain , Severe, 02/13/24 13:13:00 EDT, Route to Pharmacy Electronically, [facility], Partial fill upon patient request if the prescription... Start Date: 02/13/24 Status: Ordered predniSONE 10 mg oral tablet See Instructions, 3 tablet By Mouth Daily x 7 days then 2 tablets daily x 7 days then 1 tablet daily x 7 days then stop, # 42 tablet, 0 Refills, Maintenance, 02/13/24 13:09:00 EDT, Tablet, [facility], Partial fill upon patient [...] tuberculosis by blood test 1 Confirmed Active Underweight Confirmed Active 1pt. completed [facility] tx on 12/09/2022. pt. took Rifapin 600 mg qd x 4 months Patient Care team information Care Team Personnel Name: Gema Garcia RN Position: [facility] RN Member Role: Primary Care Nurse Name: Radha Jean-Baptiste RN Position: S RN Member Role: Primary Care Nurse Name: Shanice Colon RN Position: [facility] RN Member Role: Primary Care Nurse Name: Catherine Barba RN Position: S RN Member Role: Primary Care Nurse Name: Oswaldo Pisano RN Position: S RN Member Role: Primary Care Nurse Name: Gwendolyn Luis MD Position: [facility] Physician - Primary Care Member Role: PCP Address: Address: [address] [place] [id number] Name: Lola Hopson RN Position: S RN Member Role: Primary Care Nurse Name: Vivian Trupin RN Position: S RN Member Role: Primary Care Nurse Name: Radha Carroll RN Position: S RN Member Role: Primary Care Nurse Name: Eunice Julio RN Position: S RN Member Role: Primary Care Nurse Care Team Related Persons Name: KEN MIMS Name: HELDER MCBRIDE Address: home [address] [place] [address] Name: RAMO MCBRIDE Address: home [address] [place] [address] Name: MEHREEN GIANG
--- OUTSIDE RECORDS SUMMARY | 2024-03-30 12:48 | XMS_ITS | Continuity of Care Document ---
Author Organization [facility] ter Address [address] [place] [address]- Care Team Providers Care Bulldozer Operator Name Role Phone Gwendolyn Luis MD Primary Care Physician Encounter [facility] Date(s): 03/06/24 - 03/06/[address] [address]- Encounter Diagnosis Dehydration(Final) - 03/06/24 Ileostomy present(Final) - 03/06/24 Discharge Disposition: A-D/C Home Attending Physician: Lukasz Holloway MD Admitting Physician: Lukasz Holloway MD Referring Physician: Not on Staff, Referring [...] 03/14/24 13:12:00 EDT, 02/13/24 13:12:00 EDT, Injection, [facility], Partial fill upon patient request [...] 02/13/24 13:15:00 EDT, Route to Pharmacy Electronically, [facility], Partial fill upon patien... Start Date: 02/13/24 Status: Ordered lidocaine 5% topical film See Instructions, Topically Daily, # 30 patch, 0 Refills, Maintenance, 02/13/24 13:12:00 EDT, [facility] upon patient request if the prescription is for a schedule II opioid drug., Topically Daily, 163, cm, 02/09/24... Start Date: 02/13/24 Status: Ordered metroNIDAZOLE 500 mg oral tablet 1 tablet = 500 mg, By Mouth, Every 8 hours, for 30 days, # 90 tablet, 0 Refills, Acute 03/14/24 13:13:00 EDT, 02/13/24 13:13:00 EDT, [facility], [facility] fill upon patient request if the prescription is for a schedule II opioid drMaryan Start Date: 02/13/24 Stop Date: 03/14/24 Status: Ordered oxyCODONE 5 mg oral tablet 5 mg, 1, tablet, By Mouth, Every 6 hours, PRN, # 20 tablet, Refills 0, Tot. Refills 0, Maintenance,Pain , Severe, 02/13/24 13:13:00 EDT, Route to Pharmacy Electronically, [facility], Partial fill upon patient request if the prescription... Start Date: 02/13/24 Status: Ordered predniSONE 10 mg oral tablet See Instructions, 3 tablet By Mouth Daily x 7 days then 2 tablets daily x 7 days then 1 tablet daily x 7 days then stop, # 42 tablet, 0 Refills, Maintenance, 02/13/24 13:09:00 EDT, Tablet, [facility], Partial fill upon patient request i... [...] Exam Date Time Procedure Performing Provider Status 03/06/24 3:52 PM Chest 2 Views Frontal and Lat Preston Katz; Auth (Verified) Notes: (Chest 2 Views Frontal and Lat) Reason For Exam: Shortness of Breath RESULT: Chest 2 Views Frontal and Lat Chest 2 Views Frontal and Lat Hx of Present Illness: pt reports 2 days of loose stool, weakness, dizziness, poor appetite, fatigue. sts stoma has been itchy, visiting nurse looked at it yesterday and sts it looks good ; Reason: Shortness of Breath; Clinical Question(s): Pneumonia COMPARISON: Multiple prior chest radiographs with the most recent dated 02/06/2024. FINDINGS: LINES AND TUBES: The enteric tube has been removed since the prior examination. LUNGS AND PLEURA: Clear lungs. Normal pulmonary vascularity. No pleural effusion. No pneumothorax. HEART, MEDIASTINUM AND SHAAN: Heart is normal in size. Normal mediastinal and hilar contour. BONES AND SOFT TISSUES: No acute abnormality. IMPRESSION: No acute cardiopulmonary process is seen. WSN: [id number] Ordering Physician: Lukasz Holloway Dictated By: Denny Wilkins MD, V Dictated Date/Time: 03/06/24 3:55 pm Reviewed By: Denny Wilkins MD, V Signed By: Denny Wilkins MD, V Signed Date/Time: 03/06/24 3:55 pm Transcribed By: ANITA Transcribed Date/Time: 03/06/24 3:53 pm Vital Signs Most recent to oldest [Reference Range]: 1 2 3 Height 163 cm (03/06/24 4:59 PM) 163 cm (03/06/24 1:48 PM) 163 cm (03/06/24 12:56 PM) Weight 49 kg (03/06/24 1:48 PM) 49 kg (03/06/24 12:56 PM) Oxygen Saturation [94-100 %] 100 % (03/06/24 7:18 PM) 100 % (03/06/24 4:59 PM) 100 % (03/06/24 12:56 PM) Pulse Rate [55-90 bpm] 84 bpm (03/06/24 7:18 PM) 84 bpm (03/06/24 4:59 PM) 103 bpm *H* (03/06/24 12:56 PM) Body Mass Index [18.5-24.99 kg/m2] 18.44 kg/m2 *L* (03/06/24 12:56 PM) Blood Pressure [90-138/55-84 mm Hg] 90/57mm Hg (03/06/24 8:02 PM) 93/44mm Hg (03/06/24 7:18 PM) 95/61mm Hg 1 (03/06/24 4:59 PM) Respiratory Rate [16-30 br/min] 18 br/min (03/06/24 7:18 PM) 16 br/min (03/06/24 4:59 PM) 18 br/min (03/06/24 12:56 PM) Temperature [96.8-100.4 DegF] 97.9 DegF (03/06/24 4:59 PM) 98.5 DegF (03/06/24 12:56 PM) Mode of Delivery (Oxygen) Room air (03/06/24 7:18 PM) Room air (03/06/24 4:59 PM) Room air (03/06/24 12:56 PM) Blood pressure sites Arm, left (03/06/24 8:02 PM) Arm, left (03/06/24 7:18 PM) Arm, right (03/06/24 4:59 PM) Temperature Route Oral (03/06/24 4:59 PM) Oral (03/06/24 12:56 PM) Dry Weight 49 kg (03/06/24 1:48 PM) 49 kg (03/06/24 12:56 PM) Weight Obtained Via Patient/family state d (03/06/24 12:56 PM) Dry Weight Obtained Via Patient/family s tated (03/06/24 12:56 PM) 1Result Comment: RN aware EKG study * Event Display: ECG 12-Lead Authored Date: Please click on pdf link to open report * Event Display: ECG 12-Lead Authored Date: Ventricular Rate: 103 BPM Atrial Rate: 103 BPM P-R Interval: 144 ms QRS Duration: 70 ms Q-T Interval: 316 ms QTC Calculation(Bazett): 413 ms P Cyrus: 73 degrees R Cyrus: 61 degrees T Cyrus: 55 degrees Sinus tachycardia Possible Left atrial enlargement Borderline ECG When compared with ECG of 06-FEB-2024 12:55, No significant change was found Confirmed by RICH AMADOR MD ([id number]) on 03/06/2024 4:40:58 PM [place]: RICH AMADOR MD * Event Display: EKG Authored Date: Note * Cici Poewrs: PERFORM Event Display: Patient Education Leaflets Authored Date: Dehydration (Adult) ?? [id number] Dehydration (Adult) Dehydration occurs when your body loses too much fluid. This may be the result of prolonged vomiting or diarrhea, excessive sweating, or a high fever. It may also happen if you don???t drink enough fluid when you???re sick or out in the heat. Some medicines such as water pills (diuretics) can also be a cause. Symptoms include thirst, less urine than usual, and darker-colored urine. You may also feel dizzy, weak, very tired, or very drowsy. You may also have muscle aches and headache. The diet described below is usually enough to treat dehydration. In some cases, you may need medicine. Home care ??? Drink at least 12, 8-ounce glasses of fluid every day until you are no longer dehydrated. Fluid can include: o Water o Ingham juice o Lemonade o Apple, grape, or cranberry juice o Clearfruit drinks o Electrolyte replacement and sports drinks o Tea o Decaffeinated coffee ??? Don't drink alcohol. ??? If you have been diagnosed with a kidney disease or heart failure, ask your doctor how much and what types of fluids you should drink to prevent dehydration. These diseases can cause fluid to build up in the body. This can be dangerous to your health. ??? If you have a fever, muscle aches, or a headache from a cold or flu, you may take acetaminophen, naproxen, or ibuprofen, unless another medicine was prescribed. Talk with your healthcare provider before using these medicines if y ou have chronic liver or kidney disease, or had a stomach ulcer or digestive bleeding. ?? Follow-up care Follow up with your healthcare provider as advised. ?? When to seek medical advice Call your healthcare provider right away if any of these occur: ??? Continued vomiting ??? Diarrheathat happens more than 5 times a day or mucus in diarrhea ??? Swollen belly (abdomen) or belly painthat gets worse ??? Less urine than usual or extreme thirst ??? Fever of 100.4??F (38??C) or higher, or as directed by your healthcare provider ?? Call 911 Call 911 right away if you have any of the following: ??? Weakness, dizziness, or fainting ??? Unusual drowsiness or confusion ??? Vomit or stool is red or black ?? Last Reviewed Date: 2021 ?? 1910-7941 [employer]. All rights reserved. This information is not intended as a substitute for professional medical care. Always follow your healthcare professional's instructions. ?? Patient Care team information Care Team Personnel Name: Gema Garcia RN Position: [facility] RN Member Role: Primary Care Nurse Name: Radha Jean-Baptiste RN Position: [facility] RN Member Role: Primary Care Nurse Name: Shanice Colon RN Position: [facility] RN Member Role: Primary Care Nurse Name: Catherine Barba RN Position: [facility] RN Member Role: Primary Care Nurse Name: Oswaldo Pisano RN Position: [facility] RN Member Role: Primary Care Nurse Name: Gwendolyn Luis MD Position: [facility] Physician - Primary Care Member Role: PCP Address: Address: [address] [place] [id number] Name: Lola Hopson RN Position: [facility] RN Member Role: Primary Care Nurse Name: Vivian Turpin RN Position: [facility] RN Member Role: Primary Care Nurse Name: Radha Carroll RN Position: [facility] RN Member Role: Primary Care Nurse Name: Eunice Julio RN Position: [facility] RN Member Role: Primary Care Nurse Care Team Related Persons Name: KEN MIMS Name: HELDER MCBRIDE Address: home [address] [place] [address] Name: RAMO MCBRIDE Address: home [address] [place] [address] Name: MEHREEN GIANG
--- OUTSIDE RECORDS SUMMARY | 2024-03-30 12:48 | XMS_ITS | Continuity of Care Document ---
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 Name Role Phone Gwendolyn Luis MD Primary Care Physician [phone] Encounter [facility] Date(s): 08/02/22 - 09/01/22 [facility] [address] [address]- [place] Attending Physician: Amish Steiner Admitting Physician: Amish Steiner Referring Physician: AdmtrAmish Allergies, Adverse Reactions, Alerts No Known Allergies Medications acetaminophen-oxycodone 500 mg-5 mg oral capsule See Instructions, Scheduled / PRN, 15, 0, 0, 04/12/08 16:46:12, as needed for pain, 1 capsule By Mouth Every 6 hours, Print NADEEM Number, ADS OPP[facility] Start Date: 04/12/08 Status: Ordered Crutches See Instructions, # 1 pair, Maintenance, foot fx, 12/25/14 22:22:21, Compound Start Date: 12/25/14 Status: Ordered rifampin 300 mg oral capsule 2 capsule = 600 mg, By Mouth, Daily, # 60 capsule, 3 Refills, Maintenance, 08/09/22 8:15:00 EST, [facility], #1 bottle home delivery: [address] [place], [place] [address]r., [place]; [phone], 163, cm, 08/02/22 10:56:00 EST, Height Start Date: 08/09/22 Stop Date: 12/07/22 Status: Ordered Patient Care team information Care Team Personnel Name: Gwendolyn Luis MD Position: S Physician (General Medicine) Member Role: PCP Address: Address: [address] [place] [address] [place] [address] Care Team Related Persons Name: HELDER MCBRIDE Address: home [address] [place] [address] Name: RAMO MCBRIDE Address: [address] [address]
--- OUTSIDE RECORDS SUMMARY | 2024-03-30 12:48 | XMS_ITS | Continuity of Care Document ---
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 Start Date: 02/13/24 Status: Ordered lidocaine 5% topical film See Instructions, Topically Daily, # 30 patch, 0 Refills, Maintenance, 02/13/24 13:12:00 EDT, Patch, [facility], Partial fill upon patient request if the prescription is for a schedule II opioid drug., Topically Daily, 163, cm, 02/09/24... Start Date: 02/13/24 Status: Ordered metroNIDAZOLE 500 mg oral tablet 1 tablet = 500 mg, By Mouth, Every 8 hours, for 30 days, # 90 tablet, 0 Refills, Acute 03/14/24 13:13:00 EDT, 02/13/24 13:13:00 EDT, Tablet, [facility], Partial fill upon patient request if the prescription is for a schedule II opioid dr... Start Date: 02/13/24 Stop Date: 03/14/24 Status: Ordered oxyCODONE 5 mg oral tablet 5 mg, 1, tablet, By Mouth, Every 6 hours, PRN, # 20 tablet, Refills 0, Tot. Refills 0, Maintenance,Pain , Severe, 02/13/24 13:13:00 EDT, Route to Pharmacy Electronically, [facility], Partial fill upon patient request if the prescription... Start Date: 02/13/24 Status: Ordered predniSONE 10 mg oral tablet See Instructions, 3 tablet By Mouth Daily x 7 days then 2 tablets daily x 7 days then 1 tablet daily x 7 days then stop, # 42 tablet, 0 Refills, Maintenance, 02/13/24 13:09:00 EDT, Tablet, [facility], Partial fill upon patient [...] Team Personnel Name: Gema Garcia RN Position: [facility] RN Member Role: Primary Care Nurse Name: Radha Jean-Baptiste RN Position: S RN Member Role: Primary Care Nurse Name: Shanice Colon RN Position: S RN Member Role: Primary Care Nurse Name: Catherine Barba RN Position: S RN Member Role: Primary Care Nurse Name: Oswaldo Pisano RN Position: S RN Member Role: Primary Care Nurse Name: Gwendolyn Luis MD Position: [facility] Physician - Primary Care Member Role: PCP Address: Address: [address] [place] [address] Name: Lola Hopson RN Position: S RN Member Role: Primary Care Nurse Name: Vivian Turpin RN Position: S RN Member Role: Primary Care Nurse Name: Radha Carroll RN Position: S RN Member Role: Primary Care Nurse Name: Eunice Julio RN Position: S RN Member Role: Primary Care Nurse Care Team Related Persons Name: KEN MIMS Name: HELDER MCBRIDE Address: home [address] [place] [address] Name: RAMO MCBRIDE Address: home [address] [place] [id number] Name: MEHREEN GIANG
--- OUTSIDE RECORDS SUMMARY | 2024-03-30 12:48 | XMS_ITS | Continuity of Care Document ---
Author Organization [facility] Address [address] [place] [address]- Care Team Providers Care Nurse Staff Name Role Phone Gwendolyn Luis MD Primary Care Physician [place] [facility] [place] 12/07/22 [facility] [address] [address] [place] Attending Physician: Juani Peck MD Admitting Physician: Juani Peck MD Allergies, Adverse Reactions, Alerts No Known Allergies Medications acetaminophen-oxycodone 500 mg-5 mg oral capsule See Instructions, Scheduled / PRN, 15, 0, 0, 04/12/08 16:46:12, as needed for pain, 1 capsule By Mouth Every 6 hours, Print NADEEM Number, [facility] Start Date: 04/12/08 Status: Ordered Crutches See Instructions, # 1 pair, Maintenance, foot fx, 12/25/14 22:22:21, Compound Start Date: 12/25/14 Status: Ordered rifampin 300 mg oral capsule 2 capsule = 600 mg, By Mouth, Daily, # 60 capsule, 3 Refills, Maintenance, 08/09/22 8:15:00 EST, [facility] #1 bottle home delivery: [address] [place], [place] [address]r., [place]; [phone], 163, cm, 08/02/22 10:56:00 EST, Height Start Date: 08/09/22 Stop Date: 12/07/22 Status: Ordered Patient Care team information Care Team Personnel Name: Gwendolyn Luis MD Position: [facility] Physician (General Medicine) Member Role: PCP Address: Address: [address] [place] [address] [place], [place] [address] Care Team Related Persons Name: HELDER MCBRIDE Address: home [address] [place] [address] Name: CHANORAMO Anaya Address: [address] [address]
--- OUTSIDE RECORDS SUMMARY | 2024-03-30 12:48 | XMS_ITS | Continuity of Care Document ---
Author Organization [facility] ter Address [address] [place] [address]- Care Team Providers Care Corrections Sergeant Name Role Phone Gewndolyn Luis MD Primary Care Physician [phone] Encounter [facility] Date(s): 01/25/24 - 03/09/[address] [address] Attending Physician: Bhavani Vasquez MD Referring Physician: Bhavani Vasquez MD Allergies, Adverse Reactions, Alerts Substance Reaction [...] 03/14/24 13:12:00 EDT, 02/13/24 13:12:00 EDT, Injection, [facility], Partial fill upon patient [...] 02/13/24 13:15:00 EDT, Route to Pharmacy Electronically, [facility], Partial fill upon patien... Start Date: 02/13/24 Status: Ordered lidocaine 5% topical film See Instructions, Topically Daily, # 30 patch, 0 Refills, Maintenance, 02/13/24 13:12:00 EDT, Patch, [facility], Partial fill upon patient request if the prescription is for a schedule II opioid drug., Topically Daily, 163, cm, 02/09/24... Start Date: 02/13/24 Status: Ordered metroNIDAZOLE 500 mg oral tablet 1 tablet = 500 mg, By Mouth, Every 8 hours, for 30 days, # 90 tablet, 0 Refills, Acute 03/14/24 13:13:00 EDT, 02/13/24 13:13:00 EDT, Tablet, [facility], Partial fill upon patient request if the prescription is for a schedule II opioid dr... Start Date: 02/13/24 Stop Date: 03/14/24 Status: Ordered oxyCODONE 5 mg oral tablet 5 mg, 1, tablet, By Mouth, Every 6 hours, PRN, # 20 tablet, Refills 0, Tot. Refills 0, Maintenance,Pain , Severe, 02/13/24 13:13:00 EDT, Route to Pharmacy Electronically, [facility], Partial fill upon patient request if the prescription... Start Date: 02/13/24 Status: Ordered predniSONE 10 mg oral tablet See Instructions, 3 tablet By Mouth Daily x 7 days then 2 tablets daily x 7 days then 1 tablet daily x 7 days then stop, # 42 tablet, 0 Refills, Maintenance, 02/13/24 13:09:00 EDT, Tablet, [facility], Partial fill upon patient [...] Team Personnel Name: Gema Garcia RN Position: [facility] RN Member Role: Primary Care Nurse Name: Radha Jean-Baptiste RN Position: [facility] RN Member Role: Primary Care Nurse Name: Shanice Colon RN Position: [facility] RN Member Role: Primary Care Nurse Name: Catherine Barba RN Position: [facility] RN Member Role: Primary Care Nurse Name: Oswaldo Pisano RN Position: S RN Member Role: Primary Care Nurse Name: Gwendolyn Luis MD Position: [facility] Physician - Primary Care Member Role: PCP Address: Address: [address] [place] [id number] Name: Lola Hopson RN Position: S RN Member Role: Primary Care Nurse Name: Vivian Turpin RN Position: S RN Member Role: Primary Care Nurse Name: Radha Carroll RN Position: S RN Member Role: Primary Care Nurse Name: Eunice Julio RN Position: S RN Member Role: Primary Care Nurse Care Team Related Persons Name: KEN MIMS Name: HELDER MCBRIDE Address: [address] [address] Name: RAMO MCBRIDE Address: [address] [address] Name: MEHREEN GIANG
[2024-03-30 12:53] VITALS: BP 103/56; PULSE 80; RESP 17; TEMP 36.3; O2SAT 100
[2024-03-30 12:56] VITALS: BP 103/56; PULSE 80; RESP 17; TEMP 36.3; O2SAT 100
== END 2024-03-30 12:59 | disposition home or self-care (01) ==
PROVIDERS: Emergency Provider Emergency Medicine; PCP Internal Medicine
DX: T78.40XA Allergy, unspecified, initial encounter (principal); R21 Rash and other nonspecific skin eruption; X58.XXXA Exposure to other specified factors, initial encounter
CPT/HCPCS: 96372; 99283; 99284; J1200; J2919

== ENCOUNTER 2024-10-05 11:55 | Emergency (ER) | payer OTHER, SELFPAY ==
--- NOTE | ~2024-10-05 | XR_ITS ---
CLINICAL HISTORY: covid +, sob 1 view chest x-ray Comparison: CT - CT CHEST W IV CON - 06/24/22 22:[address]/DE/SR - CT CHEST W IV CON - 06/24/22 22:29 EDT Findings: No consolidation or effusion. Normal size heart. No acute fracture. IMPRESSION: 1. No acute findings. This document has been electronically signed by: Awa Up MD on 10/05/2024 13:52:20
[2024-10-05 12:04] VITALS: BP 108/68; BP 90/70; PULSE 109; PULSE 97; RESP 20; TEMP 36.8; O2SAT 98; O2SAT 99; BMI 24.4
[2024-10-05 12:18] LABS: MANUAL DIFF FLAG NO
[2024-10-05 12:19] LABS: Basophils Absolute Auto 0.1 X10*3/uL (0.0-0.2); Basophils Percent Auto 0.6 % (0-2); Eosinophils Absolute Auto 0.1 X10*3/uL (0.0-0.4); Eosinophils Percent Auto 1.6 % (0-4); Hematocrit 40.3 % (37.0-47.0); Hemoglobin 13.9 g/dl (12.0-16.0); Imm Gran Abs Auto 0.01 X10*3/uL (0.00-0.03); Imm Gran Pct Auto 0.1 % (0.0-0.4); Lymphocytes Absolute Auto 3.3 X10*3/uL (1.2-4.9); Lymphocytes Percent Auto 40.5 % (20-40); Mean Corpuscular HGB Conc 34.5 g/dl (31.0-35.0); Mean Corpuscular Hemoglobin 31.5 pg (27.0-33.0); Mean Corpuscular Volume 91.4 fL (80.0-98.0); Mean Platelet Volume 9.2 fL (9.4-12.3); Monocytes Absolute Auto 0.5 X10*3/uL (0.1-1.2); Monocytes Percent Auto 5.6 % (2-11); Neutrophils Absolute Auto 4.2 x10*3/uL (2.0-8.3); Neutrophils Percent Auto 51.6 % (45-73); Platelet Count 272 X10*3/uL (160-400); Red Blood Count 4.41 X10*6/uL (4.20-5.50); Red Cell Distribution Width 12.5 % (11.0-16.0); White Blood Count 8.2 X10*3/uL (4.8-10.8)
[2024-10-05 12:34] LABS: Alanine Aminotransferase 33 U/L (0-31); Albumin Level 4.4 g/dL (3.5-5.0); Alkaline Phosphatase 94 U/L (39-117); Anion Gap 13 (12-20); Aspartate Amino Transferase 31 U/L (5-31); Bilirubin Total 0.2 mg/dL (0.0-1.0); Blood Urea Nitrogen 19 mg/dL (9-16); Calcium 9.7 mg/dL (8.4-10.2); Carbon Dioxide 22 mmol/L (22-29); Chloride 107 mmol/L (96-108); Creatinine Clr Calc Pharmacy 79.4; Estimated Glomerular Filt Rate > 60; Glucose Random 119 mg/dL (60-115); Sodium 138 mmol/L (135-145); Total Protein 7.7 g/dL (6.5-8.0)
[2024-10-05 13:13] LABS: Influenza A PCR NEGATIVE (Negative); Influenza B PCR NEGATIVE (Negative); Resp Syncy Virus RNA Qual PCR NEGATIVE (Negative); SARS COV2 PCR INHOUSE POSITIVE (Negative)
--- NOTE | 2024-10-05 13:14 | ED_ITS ---
HPI - General Adult General Chief complaint: General Medical Stated complaint: +COVID,CALDERON,SOB,COUGH,FATIGUE,FEVER T-1,BP 90/70 Time Seen by Provider: 10/05/24 12:45 Source: patient, EMS and old records reviewed Mode of arrival: EMS Limitations: no limitations History of Present Illness ED Provider: DR. Ferro HPI narrative: 49-year-old female who works at a [employer] exposed to a sick contacts with COVID patient had a positive home COVID test. Patient has been having coughing, shortness of breath, patient is an active smoker, no history of asthma or COPD. No recent travel or prolonged immobilization. Patient is complaining of increase diarrhea drainage in the ileostomy bag. Related Data Home Medications ?Medication ?Instructions ?Recorded ?Confirmed acetaminophen 325 mg tablet 650 mg PO QID PRN Pain 11/01/23 12/20/23 ascorbic acid (vitamin C) 100 mg 100 mg PO DAILY 11/01/23 12/20/23 tablet (Vitamin C) cholecalciferol (vitamin D3) 10 10 mcg PO DAILY 11/01/23 12/20/23 mcg (400 unit) tablet (Vitamin D3) cyanocobalamin (vitamin B-12) 1,000 mcg PO DAILY 11/01/23 12/20/23 1,000 mcg tablet calcium carbonate (Calcium 600) 600 mg PO DAILY 12/14/23 12/20/23 Previous Rx's ?Medication ?Instructions ?Recorded oxycodone 5 mg tablet 5 mg PO Q6H PRN pain #20 tabs 12/17/23 gabapentin 100 mg capsule 100 mg PO TID 14 days #42 caps 12/29/23 prednisone 20 mg tablet 20 mg PO DAILY 30 days #30 tabs 12/29/23 valacyclovir 1 gram tablet 1,000 mg PO Q8H 5 days #15 tabs 12/29/23 (Valtrex) hydrocortisone 1 % topical cream 1 appl topical BID PRN rash #28.35 03/30/24 (Anti-Itch (hydrocortisone)) grams ondansetron 4 mg disintegrating 4 mg PO Q8-12H PRN nausea and 10/05/24 tablet vomiting #7 tabs Allergies Allergy/AdvReac Type Severity Reaction Status Date / Time upadacitinib [From [employer]] AdvReac Rash Verified 10/05/24 12:10 Review of Systems 2 Review of Systems: All other systems are reviewed and are negative Constitutional: Reports as per HPI and Reports no additional constitutional complaints Eyes: Reports as per HPI and Reports no additional eye complaints Reports system reviewed and no additional complaints, except as documented Cardiovascular: Reports as per HPI and Reports no additional cardiovascular complaints Respiratory: Reports as per HPI and Reports no additional respiratory complaints Gastrointestinal: Reports as per HPI and Reports no additional gastrointestinal complaints Genitourinary: Reports no additional female genitourinary complaints Musculoskeletal: Reports no additional musculoskeletal complaints Skin/Breast: Reports system reviewed and no additional complaints, except as docu Psychiatric: Reports no additional psychiatric complaints Endocrine: Reports no additional endocrine complaints Hematologic/Lymphatic: Reports no additional hematologic/lymphatic complaints Allergic/Immunologic: Reports no additional allergic/immunologic complaints Reports system reviewed and no additional complaints, except as documented and Reports Abnormal speech present [facility] Past Medical History Medical History Crohns disease of small intestine Acute Crohn's disease Exacerbation of Crohn's disease Crohn disease Crohn's disease Depression Social History Social History Household Members: Family Household Members Other:: father grandma Housing: House Do you presently have visiting nurse or other home services: No Alcohol intake: never Comment: pt refuses alarms Patient Tobacco Use Status: Former Tobacco user Tobacco use type: Cigarette Cigarette Packs Per Day: 0.5 Cigarettes Per Day: 2 Years Smoked: 3 months ago Smoked in Last 30 Days: Yes e-Cigarette/Vaping Use: Currently Using Second Hand Smoke Exposure: No Use of substances other than those prescribed or required for medical reasons: No Advance Directives: No Advance Directives Information Provided: No Advance Directives Date on File: 07/04/23 Patient : No service: No Physical Exam ED Vital Signs: Vital Signs - 24 hr 10/05/24 12:04 10/05/24 15:38 Temperature 98.2 F 98.3 F Pulse Rate 97 69 Respiratory Rate 20 14 Blood Pressure 108/68 91/53 L Pulse Oximetry 98 100 Oxygen Delivery Method Room Air Room Air BMI result Body Mass Index 24.4 Vital signs have been reviewed and appear to be correct. Blood pressure elevated. Heart rate normal. Respiratory rate normal. Temperature normal. Oxygen saturation normal. Appearance: Alert. Oriented X3. No acute distress. Head: Normal external exam. Normocephalic. Atraumatic. No Avelar signs noted. No raccoon eyes noted Eyes: PERRLA. EOMI. Conjunctiva and sclera normal. Eyelids normal. ENT: TM's Normal. Pharynx normal. Uvula midline. Moist mucous membranes. No trismus noted. No drooling noted. No muffled voice noted. Neck: Normal inspection. Neck supple. FROM. No adenopathy. Thyroid Normal. No meningeal signs. No neck mass noted. CVS: Normal heart rate and rhythm. Heart sound normal. No murmurs noted. Pulses normal throughout. Respiratory: No respiratory distress. Painless inspiration. Breath sounds normal. No wheezes/rales/rhonchi noted. Chest nontender. No accessory muscle usage noted or decreased air movement noted. Abdomen: Soft and nontender. Bowel sounds normal in all 4 quadrants. No distention noted. No organomegaly noted. No visible injury noted. Back: No CVA tenderness. Full range of motion noted. Skin: Skin warm and dry. Normal skin color. Normal skin turgor. No rashes/lesions/lacerations noted. Extremities: No lower extremity edema. Extremities exhibit normal range of motion. Extremities nontender. Neuro: Oriented X 3. Cranial nerve exam: II-XII are grossly intact No motor deficit. No sensory deficit. Reflexes normal. Course Reevaluation(s) Reevaluation #1: 49-year-old female smoker COVID positive. VSS with O2 sat is 100%, was RR 18, chest x-ray is unremarkable. Will give IV fluids patient was encouraged to drink plenty of fluid to avoid dehydration continue monitoring output of the ostomy. Time: 16:23 Medications Administered Discontinued Medications Generic Name Dose Route Start Last Admin Trade Name Freq PRN Reason Stop Dose Admin Acetaminophen 975 mg 10/05/24 13:57 10/05/24 14:14 Acetaminophen 325 Mg Tablet PO 10/05/24 13:58 975 mg ONCE ONE Administration Loperamide HCl 2 mg 10/05/24 13:18 10/05/24 13:25 Loperamide Hcl 2 Mg Capsule PO 10/05/24 13:19 2 mg ONCE ONE Administration Ondansetron HCl 4 mg 10/05/24 13:17 10/05/24 13:25 Ondansetron Odt 4 Mg Tab.Rapdis TRANSLINGU 10/05/24 13:18 4 mg ONCE ONE Administration Medical Decision Making Differential Diagnosis Differential Diagnoses: The differential diagnosis associated with the presentation includes (Pneumonia, pneumothorax, pleural effusion, COVID-19 infection, RSV, influenza a., hypoxia, dehydration, ostomy high output.) Admission/Observation Consideration of admission/observation: Escalation of care including admission/observation considered Lab Data MDM Lab Attestation statement: I reviewed the patient's lab results. 10/05/24 12:13 10/05/24 12:13 Labs: Lab Results 10/05/24 10/05/24 Range/Units 12:13 12:17 WBC 8.2 (4.8-10.8) X10*3/uL RBC 4.41 D (4.20-5.50) X10*6/uL Hgb 13.9 D (12.0-16.0) g/dl Hct 40.3 D (37.0-47.0) % MCV 91.4 (80.0-98.0) fL MCH 31.5 (27.0-33.0) pg MCHC 34.5 (31.0-35.0) g/dl RDW 12.5 (11.0-16.0) % Plt Count 272 D (160-400) X10*3/uL MPV 9.2 L (9.4-12.3) fL Immature Gran % (Auto) 0.1 (0.0-0.4) % Neut % (Auto) 51.6 (45-73) % Lymph % (Auto) 40.5 H (20-40) % [place] % (Auto) 5.6 (2-11) % Eos % (Auto) 1.6 (0-4) % Baso % (Auto) 0.6 (0-2) % Lymph # (Auto) 3.3 (1.2-4.9) X10*3/uL [place] # (Auto) 0.5 (0.1-1.2) X10*3/uL Eos # (Auto) 0.1 (0.0-0.4) X10*3/uL Baso # (Auto) 0.1 (0.0-0.2) X10*3/uL Abs Immat Gran (auto) 0.01 (0.00-0.03) X10*3/uL Absolute Neuts (auto) 4.2 (2.0-8.3) x10*3/uL Absolute Nucleated RBC 0.000 (0.0-0.012) X10*3/uL Nucleated RBC % (auto) 0.0 (0.0-0.2) /100WBC Sodium 138 (135-145) mmol/L Potassium 4.0 (3.3-5.1) mmol/L Chloride 107 (96-108) mmol/L Carbon Dioxide 22 (22-29) mmol/L Anion Gap 13 (12-20) BUN 19 H (9-16) mg/dL Creatinine 0.74 (0.5-1.4) mg/dL Estim Creat Clear Calc 79.4 Estimated GFR > 60 Random Glucose 119 H (60-115) mg/dL Calcium 9.7 D (8.4-10.2) mg/dL Total Bilirubin 0.2 (0.0-1.0) mg/dL AST 31 (5-31) U/L ALT 33 H (0-31) U/L Alkaline Phosphatase 94 (39-117) U/L Total Protein 7.7 (6.5-8.0) g/dL Albumin 4.4 (3.5-5.0) g/dL Influenza Type A (PCR) NEGATIVE (Negative) Influenza Type B (PCR) NEGATIVE (Negative) RSV RNA Qual (PCR) NEGATIVE (Negative) SARS-CoV-2 RNA (RT-PCR) POSITIVE A (Negative) Independent Interpretation I performed an independent interpretation of an: Plain X-Ray (Chest: No acute intrathoracic pathology.) Radiology Impression Discussion of test interpretation with radiology: I have reviewed the radiologist's reading. Discharge Plan Discharge Clinical Impression: COVID-19 virus infection Patient Disposition: Still a Patient Instructions: COVID-19 (Coronavirus Disease 2019) (ED) Prescriptions: New ondansetron 4 mg tablet,disintegrating 4 mg PO Q8-12H PRN (Reason: nausea and vomiting) Qty: 7 0RF No Action acetaminophen 325 mg Tablet 650 mg PO QID PRN (Reason: Pain) cyanocobalamin (vitamin B-12) 1,000 mcg Tablet 1,000 mcg PO DAILY Vitamin C 100 mg Tablet 100 mg PO DAILY cholecalciferol (vitamin D3) [Vitamin D3] 10 mcg (400 unit) Tablet 10 mcg PO DAILY hydrocortisone [Anti-Itch (HC)] 1 % cream 1 appl topical BID PRN (Reason: rash) Qty: 28.35 0RF calcium carbonate [Calcium 600] 600 mg calcium (1,500 mg) Tablet 600 mg PO DAILY oxycodone 5 mg tablet 5 mg PO Q6H MDD 20mg PRN (Reason: pain) Qty: 20 0RF Rx Instructions: Partial Fill upon patient request. gabapentin 100 mg Capsule 100 mg PO TID 14 Days Qty: 42 0RF prednisone 20 mg Tablet 20 mg PO DAILY 30 Days Qty: 30 0RF valacyclovir [Valtrex] 1 gram tablet 1,000 mg PO Q8H 5 Days Qty: 15 0RF Stand Alone Forms: Work/School Release Print Language: Turkish
[2024-10-05] MEDS: Ondansetron ODT 4 MG TAB.RAPDIS TRANSLINGU (13:25)
[2024-10-05] MEDS: Loperamide HCl 2 MG CAPSULE PO (13:25)
[2024-10-05] MEDS: Acetaminophen 325 MG TABLET 975 MG PO (14:14)
[2024-10-05 15:38] VITALS: BP 91/53; PULSE 69; RESP 14; TEMP 36.8; O2SAT 100
[2024-10-05] MEDS: 0.9 % Sodium Chloride 1,000 ML 999 ML IV (16:32)
[2024-10-05 17:46] VITALS: BP 92/51; PULSE 70; RESP 17; O2SAT 99
[2024-10-05 18:06] VITALS: BP 102/56; PULSE 73; RESP 12; TEMP 36.5; O2SAT 96
--- NOTE | 2024-10-05 18:54 | ED_ITS ---
HPI - General Adult General Chief complaint: General Medical Stated complaint: +COVID,CALDERON,SOB,COUGH,FATIGUE,FEVER T-1,BP 90/70 Time Seen by Provider: 10/05/24 12:45 Source: patient, EMS and old records reviewed Mode of arrival: EMS Limitations: no limitations Related Data Home Medications ?Medication ?Instructions ?Recorded ?Confirmed acetaminophen 325 mg tablet 650 mg PO QID PRN Pain 11/01/23 12/20/23 ascorbic acid (vitamin C) 100 mg 100 mg PO DAILY 11/01/23 12/20/23 tablet (Vitamin C) cholecalciferol (vitamin D3) 10 10 mcg PO DAILY 11/01/23 12/20/23 mcg (400 unit) tablet (Vitamin D3) cyanocobalamin (vitamin B-12) 1,000 mcg PO DAILY 11/01/23 12/20/23 1,000 mcg tablet calcium carbonate (Calcium 600) 600 mg PO DAILY 12/14/23 12/20/23 Previous Rx's ?Medication ?Instructions ?Recorded oxycodone 5 mg tablet 5 mg PO Q6H PRN pain #20 tabs 12/17/23 gabapentin 100 mg capsule 100 mg PO TID 14 days #42 caps 12/29/23 prednisone 20 mg tablet 20 mg PO DAILY 30 days #30 tabs 12/29/23 valacyclovir 1 gram tablet 1,000 mg PO Q8H 5 days #15 tabs 12/29/23 (Valtrex) hydrocortisone 1 % topical cream 1 appl topical BID PRN rash #28.35 03/30/24 (Anti-Itch (hydrocortisone)) grams nirmatrelvir 300 mg (150 mg See Rx Instructions PO .COMPLEX 10/05/24 x2)-ritonavir 100 mg tablet,dose #30 ea pack (Paxlovid) ondansetron 4 mg disintegrating 4 mg PO Q8-12H PRN nausea and 10/05/24 tablet vomiting #7 tabs Allergies Allergy/AdvReac Type Severity Reaction Status Date / Time upadacitinib [From [employer]invoq] AdvReac Rash Verified 10/05/24 12:10 PMFSH Past Medical History Medical History Crohns disease of small intestine Acute Crohn's disease Exacerbation of Crohn's disease Crohn disease Crohn's disease Depression Social History Social History Household Members: Family Household Members Other:: father grandma Housing: House Do you presently have visiting nurse or other home services: No Alcohol intake: never Comment: pt refuses alarms Patient Tobacco Use Status: Former Tobacco user Tobacco use type: Cigarette Cigarette Packs Per Day: 0.5 Cigarettes Per Day: 2 Years Smoked: 3 months ago Smoked in Last 30 Days: Yes e-Cigarette/Vaping Use: Currently Using Second Hand Smoke Exposure: No Use of substances other than those prescribed or required for medical reasons: No Advance Directives: No Advance Directives Information Provided: No Advance Directives Date on File: 07/04/23 Patient : No service: No Physical Exam ED Vital Signs: Vital Signs - 24 hr 10/05/24 12:04 10/05/24 15:38 10/05/24 17:46 Temperature 98.2 F 98.3 F Pulse Rate 97 69 70 Respiratory Rate 20 14 17 Blood Pressure 108/68 91/53 L 92/51 L Pulse Oximetry 98 100 99 Oxygen Delivery Method Room Air Room Air Room Air 10/05/24 18:06 Temperature 97.7 F Pulse Rate 73 Respiratory Rate 12 Blood Pressure 102/56 L Pulse Oximetry 96 Oxygen Delivery Method Room Air BMI result Body Mass Index 24.4 Medications Administered Discontinued Medications Generic Name Dose Route Start Last Admin Trade Name Freq PRN Reason Stop Dose Admin Acetaminophen 975 mg 10/05/24 13:57 10/05/24 14:14 Acetaminophen 325 Mg Tablet PO 10/05/24 13:58 975 mg ONCE ONE Administration Sodium Chloride 1,000 mls @ 999 mls/hr 10/05/24 16:22 10/05/24 16:32 Ns IV 10/05/24 17:22 999 mls/hr .Q1H1M ONE Administration Loperamide HCl 2 mg 10/05/24 13:18 10/05/24 13:25 Loperamide Hcl 2 Mg Capsule PO 10/05/24 13:19 2 mg ONCE ONE Administration Ondansetron HCl 4 mg 10/05/24 13:17 10/05/24 13:25 Ondansetron Odt 4 Mg Tab.Rapdis TRANSLINGU 10/05/24 13:18 4 mg ONCE ONE Administration Medical Decision Making Lab Data 10/05/24 12:13 10/05/24 12:13 Labs: Lab Results 10/05/24 10/05/24 Range/Units 12:13 12:17 WBC 8.2 (4.8-10.8) X10*3/uL RBC 4.41 D (4.20-5.50) X10*6/uL Hgb 13.9 D (12.0-16.0) g/dl Hct 40.3 D (37.0-47.0) % MCV 91.4 (80.0-98.0) fL MCH 31.5 (27.0-33.0) pg MCHC 34.5 (31.0-35.0) g/dl RDW 12.5 (11.0-16.0) % Plt Count 272 D (160-400) X10*3/uL MPV 9.2 L (9.4-12.3) fL Immature Gran % (Auto) 0.1 (0.0-0.4) % Neut % (Auto) 51.6 (45-73) % Lymph % (Auto) 40.5 H (20-40) % [place] % (Auto) 5.6 (2-11) % Eos % (Auto) 1.6 (0-4) % Baso % (Auto) 0.6 (0-2) % Lymph # (Auto) 3.3 (1.2-4.9) X10*3/uL [place] # (Auto) 0.5 (0.1-1.2) X10*3/uL Eos # (Auto) 0.1 (0.0-0.4) X10*3/uL Baso # (Auto) 0.1 (0.0-0.2) X10*3/uL Abs Immat Gran (auto) 0.01 (0.00-0.03) X10*3/uL Absolute Neuts (auto) 4.2 (2.0-8.3) x10*3/uL Absolute Nucleated RBC 0.000 (0.0-0.012) X10*3/uL Nucleated RBC % (auto) 0.0 (0.0-0.2) /100WBC Sodium 138 (135-145) mmol/L Potassium 4.0 (3.3-5.1) mmol/L Chloride 107 (96-108) mmol/L Carbon Dioxide 22 (22-29) mmol/L Anion Gap 13 (12-20) BUN 19 H (9-16) mg/dL Creatinine 0.74 (0.5-1.4) mg/dL Estim Creat Clear Calc 79.4 Estimated GFR > 60 Random Glucose 119 H (60-115) mg/dL Calcium 9.7 D (8.4-10.2) mg/dL Total Bilirubin 0.2 (0.0-1.0) mg/dL AST 31 (5-31) U/L ALT 33 H (0-31) U/L Alkaline Phosphatase 94 (39-117) U/L Total Protein 7.7 (6.5-8.0) g/dL Albumin 4.4 (3.5-5.0) g/dL Influenza Type A (PCR) NEGATIVE (Negative) Influenza Type B (PCR) NEGATIVE (Negative) RSV RNA Qual (PCR) NEGATIVE (Negative) SARS-CoV-2 RNA (RT-PCR) POSITIVE A (Negative) Discharge Plan Discharge Clinical Impression: COVID-19 virus infection Patient Disposition: Still a Patient Instructions: COVID-19 (Coronavirus Disease 2019) (ED) Additional Instructions: your diagnosed with COVID-19 you were somewhat dehydrated due to diarrhea from your ostomy this is probably due to the viral syndrome. Prescriptions: New ondansetron 4 mg tablet,disintegrating 4 mg PO Q8-12H PRN (Reason: nausea and vomiting) Qty: 7 0RF Paxlovid 300 mg (150 mg x 2)-100 mg tablets,dose pack See Rx Instructions .ROUTE .COMPLEX Qty: 30 0RF Rx Instructions: take TWO 150 mg tablets of nirmatrelvir with ONE 100 mg tablet of ritonavir twice daily for 5 days No Action acetaminophen 325 mg Tablet 650 mg PO QID PRN (Reason: Pain) cyanocobalamin (vitamin B-12) 1,000 mcg Tablet 1,000 mcg PO DAILY Vitamin C 100 mg Tablet 100 mg PO DAILY cholecalciferol (vitamin D3) [Vitamin D3] 10 mcg (400 unit) Tablet 10 mcg PO DAILY hydrocortisone [Anti-Itch (HC)] 1 % cream 1 appl topical BID PRN (Reason: rash) Qty: 28.35 0RF calcium carbonate [Calcium 600] 600 mg calcium (1,500 mg) Tablet 600 mg PO DAILY oxycodone 5 mg tablet 5 mg PO Q6H MDD 20mg PRN (Reason: pain) Qty: 20 0RF Rx Instructions: Partial Fill upon patient request. gabapentin 100 mg Capsule 100 mg PO TID 14 Days Qty: 42 0RF prednisone 20 mg Tablet 20 mg PO DAILY 30 Days Qty: 30 0RF valacyclovir [Valtrex] 1 gram tablet 1,000 mg PO Q8H 5 Days Qty: 15 0RF Stand Alone Forms: Work/School Release Print Language: Belarusian
[2024-10-05 19:01] VITALS: BP 102/56; PULSE 73; RESP 12; TEMP 36.5; O2SAT 96
== END 2024-10-05 19:27 | disposition home or self-care (01) ==
PROVIDERS: Emergency Medicine; Emergency Provider Emergency Medicine
DX: U07.1 COVID-19 (principal)
CPT/HCPCS: 0241U; 71045; 80053; 85025; 96360; 96361; 99284; 99285

== ENCOUNTER → 2024-10-05 12:45 | Outpatient (BNV) | payer OTHER, SELFPAY | PROVIDERS: Emergency Provider Emergency Medicine; Visit Provider Radiology Diagnostic Radiology | DX: R06.02 Shortness of breath (principal) | CPT/HCPCS: 71045 ==